=== PATIENT | female | born 1945 | race Two or more races ===

== ENCOUNTER 2020-02-24 21:33 | Inpatient (IN) | payer MEDICARE, OTHER ==
[~2020-02-24] VITALS: Ht 162.6 cm; Wt 72.6 kg
--- NOTE | 2020-02-24 21:45 | NUR ---
ED Nurse Note: Patient brought into ED by RA 813 from home c/o generalized body pain. per EMS, 911 was called due to her not having her walker with her, reports that her walker was in [facility] where she left it. the ambulance then took her to a hospital for generalized body pain. patient is hard of hearing however is alert and oriented x4
--- NOTE | 2020-02-24 21:58 | Emergency Room Report ---
History of Present Illness General Chief Complaint: Pain Present Illness HPI 74-year-old female here with chest pain and lower extremity swelling. Patient was recently discharged from [facility]. Patient is yelling angrily regarding her care at this other facility saying "I was not ready to be discharged. They sent me home with a walker and I cannot use a walker. I need a wheelchair and to go to the convalescent home." Patient says that since leaving the other facility she has fallen multiple times at home. Says that she has hit her head several times from these falls. She lives alone. Denies loss of consciousness. Denies vision changes, focal numbness or weakness, palpitation, back pain, abdominal pain, nausea, vomiting, diarrhea, dysuria. Allergies: Coded Allergies: SULFA (SULFONAMIDE ANTIBIOTICS) (Verified Allergy, Unknown, 02/24/20) COVID-19 Screening Contact w/high risk pt: No Experienced COVID-19 symptoms?: No COVID-19 Testing performed HOME SERVICE DEMONSTRATOR: No Review of Systems All Other Systems: negative except mentioned in HPI Physical Exam Vital Signs Date Time Temp Pulse Resp B/P (MAP) Pulse Ox O2 Delivery O2 Flow Rate FiO2 02/24/20 21:47 98.8 88 16 99 Room Air Medical Decision Making ER Course 74-year-old female presenting with multiple falls, chest pain, generalized weakness. Work-up currently pending. Signed out to oncoming physician Dr. Wild. Last Vital Signs Date Time Temp Pulse Resp B/P (MAP) Pulse Ox O2 Delivery O2 Flow Rate FiO2 02/24/20 21:47 98.8 88 16 99 Room Air Referrals: NOT CHOSEN IPA/,REFERRING (PCP) Silvestre Hyman M.D. Feb 24, 2020 21:58
[2020-02-24 22:00] VITALS: BP 159/75
--- NOTE | 2020-02-24 22:00 | NUR ---
ED Nurse Note: iv access established. blood and urine collected; sent down to lab.
[2020-02-24] MEDS ORDERED: HYDROmorphone 1mg/ml Carpuject IVP ONE (22:15)
--- NOTE | 2020-02-24 22:29 | Emergency Room Report ---
History of Present Illness General Chief Complaint: Pain Source: Patient Present Illness HPI This patient was signed out to me. She presents with chief complaint of generalized body pain. She has a history of coronary disease with a pacemaker. She also has severe arthritis and very hard of hearing. She presents with chief complaint of generalized body pain. She says she fell 2 to 3 days ago. She was at [facility] and was discharged home. She was given a walker but she said it is no good. She has a wheelchair but it is all broken down. She complained of generalized body pain. She complained of headache, chest pain, leg pain from her fall. No new trauma however. Denies any focal deficit. Pain is 10 out of 10. She is demanding pain medication before anything can be done. She has been to multiple hospitals for the same thing. Allergies: Coded Allergies: SULFA (SULFONAMIDE ANTIBIOTICS) (Verified Allergy, Unknown, 02/24/20) COVID-19 Screening Contact w/high risk pt: No Experienced COVID-19 symptoms?: No COVID-19 Testing performed GROUP COUNSELOR: No Patient History Past Medical History: see triage record, old chart reviewed, HTN, CAD, renal disease Past Surgical History: pacemaker Pertinent Family History: none Social History: Denies: smoking Now: No Immunizations: other Reviewed Nursing Documentation: PMH: Agreed; PSxH: Agreed Review of Systems Eye: Denies: eye pain, blurred vision ENT: Denies: ear pain, nose congestion, throat swelling Respiratory: Denies: cough, shortness of breath Cardiovascular: Denies: chest pain, palpitations Gastrointestinal: Denies: abdominal pain, diarrhea, nausea, vomiting Musculoskeletal: Reports: joint pain, muscle pain, muscle stiffness; Denies: b ack pain Skin: Denies: rash Neurological: Denies: headache, numbness Endocrine: Denies: increased thirst, increased urine Hematologic/Lymphatic: Denies: easy bruising All Other Systems: negative except mentioned in HPI Physical Exam Vital Signs Date Time Temp Pulse Resp B/P (MAP) Pulse Ox O2 Delivery O2 Flow Rate FiO2 02/24/20 21:47 98.8 88 16 99 Room Air Vitals unremarkable Sp02 EP Interpretation: reviewed, normal General Appearance: well appearing, no apparent distress, alert Head: normocephalic, atraumatic Eyes: left eye other - Left periorbital ecchymosis; bilateral eye PERRL, bilateral eye EOMI ENT: hearing grossly normal, normal pharynx Neck: full range of motion, supple, no meningismus Respiratory: chest non-tender, lungs clear, normal breath sounds Cardiovascular #1: regular rate, rhythm, no murmur Gastrointestinal: normal bowel sounds, non tender, no mass, no organomegaly, no bruit, non-distended Musculoskeletal: back normal, normal range of motion, other - 1+ pitting edema Psychiatric: mood/affect normal Medical Decision Making Diagnostic Impression: Primary Impression: Pain syndrome, chronic Additional Impressions: Cocaine abuse ESRF (end stage renal failure) Anemia Qualified Codes: D64.9 - Anemia, unspecified Acute exacerbation of CHF (congestive heart failure) Qualified Codes: I50.9 - Heart failure, unspecified Noncompliance Elevated troponin I level UTI (urinary tract infection) Qualified Codes: N30.00 - Acute cystitis without hematuria Hypertension Qualified Codes: I10 - Essential (primary) hypertension Head injury, acute Qualified Codes: S09.90XA - Unspecified injury of head, initial encounter ER Course This patient presents with exacerbation of chronic pain. This is a chronic problem. I suspect she has opioid dependency. She admits to cocaine abuse. She is also noncompliant with the medication. Her troponin is intermediate. This may be secondary to demand ischemia or from her renal failure. She said that she does have a history of kidney disease and her doctor is working on it. She was told that she may need to be on dialysis. She does not know what medication she is supposed to be on. She said that she can ambulate and needs a wheelchair. Her current wheelchair at home is not functional. Will admit patient for further work-up. I contacted Dr. Munroe for admission. EKG Diagnostic Results Rate: normal Rhythm: NSR ST Segments: other - LBBB Rhythm Strip Diag. Results EP Interpretation: yes Rate: 74 Rhythm: NSR, no PVC's Chest X-Ray Diagnostic Results Chest X-Ray Diagnostic Results : Chest X-Ray Ordered: Yes # of Views/Limited/Complete: 1 View Indication: Shortness of Breath EP Interpretation: Yes Interpretation: no consolidation, no effusion, other - Cardiomegaly with vascular congestion Impression: Other - CM with chf Electronically Signed by: Nba Wild MD Last Vital Signs Date Time Temp Pulse Resp B/P (MAP) Pulse Ox O2 Delivery O2 Flow Rate FiO2 02/24/20 21:47 98.8 88 16 99 Room Air Status: improved Disposition: ADMITTED INPATIENT Condition: Serious Referrals: NOT CHOSEN IPA/,REFERRING (PCP) Nba Wild MD Feb 24, 2020 22:29
[2020-02-24 22:30] LABS: MEAN CORPUSCULAR VOLUME 88 FL (80-99); PLATELET COUNT 161 K/UL (150-450); RED BLOOD COUNT 2.72 M/UL (4.20-5.40); RED CELL DISTRIBUTION WIDTH 17.2 % (11.6-14.8); WHITE BLOOD COUNT 6.8 K/UL (4.8-10.8)
[2020-02-24 22:36] LABS: BASOPHILS % (AUTO) 1.5 % (0.0-2.0); EOSINOPHILS % (AUTO) 2.1 % (0.0-3.0); LYMPHOCYTES % (AUTO) 14.7 % (20.0-45.0); MONOCYTES % (AUTO) 9.4 % (1.0-10.0); NEUTROPHILS % (AUTO) 72.2 % (45.0-75.0)
--- NOTE | 2020-02-24 22:45 | NUR ---
ED Nurse Note: discussed plan of care with patient; aware of pending admission. patient down to imaging with radiology.
[2020-02-24 22:47] LABS: CALCIUM 7.4 MG/DL (8.5-10.1); POTASSIUM 4.4 MMOL/L (3.5-5.1)
[2020-02-24 22:52] LABS: ALBUMIN 2.4 G/DL (3.4-5.0); ALBUMIN/GLOBULIN RATIO 0.6 (1.0-2.7); BILIRUBIN,TOTAL 0.3 MG/DL (0.2-1.0)
[2020-02-24 23:01] LABS: APPEARANCE,URINE CLEAR; BILIRUBIN, URINE NEGATIVE (NEGATIVE); COLOR,URINE YELLOW; GLUCOSE, URINE (UA) NEGATIVE (NEGATIVE); KETONES,URINE NEGATIVE (NEGATIVE); LEUKOCYTE ESTERASE ,URINE 1+ (NEGATIVE); NITRITE,URINE NEGATIVE (NEGATIVE); PH,URINE 5 (4.5-8.0); PROTEIN,URINE 4+ (NEGATIVE); UROBILINOGEN,URINE NORMAL MG/DL (0.0-1.0)
--- NOTE | 2020-02-24 23:12 | Diagnostic Imaging Report ---
EXAM: CT Head Without Intravenous Contrast CLINICAL HISTORY: FALL TECHNIQUE: Axial computed tomography images of the head/brain without intravenous contrast. CTDI is 53 mGy and DLP is 959 mGy-cm. One or more of the following dose reduction techniques were used: automated exposure control, adjustment of the mA and/or kV according to patient size, use of iterative reconstruction technique. COMPARISON: Headache FINDINGS: Brain: There is generalized cerebral volume loss. There is evidence of chronic microvascular ischemic disease. There is no evidence of hemorrhage or acute territorial infarct. Ventricles: Unremarkable. No ventriculomegaly. Bones/joints: Unremarkable. No acute fracture. Soft tissues: Unremarkable. Sinuses: Unremarkable as visualized. No acute sinusitis. Mastoid air cells: Unremarkable as visualized. No mastoid effusion. IMPRESSION: No acute intracranial process. There is generalized volume loss with evidence of chronic microvascular ischemic disease.
[2020-02-24] MEDS ORDERED: cefTRIAXone 1 GM in NS 55 ML IVPB ONE (23:15)
[2020-02-24] MEDS ORDERED: Aspirin Baby 81mg ORAL ONE (23:15)
[2020-02-25] VITALS (12 sets, daily range): BP systolic 125–181; BP diastolic 71–100
--- NOTE | 2020-02-25 | NUR ---
ED Nurse Note: Pt resting in bed, iv antibiotics infusing per order, VSS, will continue to monitor
[2020-02-25] MEDS ORDERED: HYDROcodone/Acetamin 5/325 tab ORAL PRN (01:30)
--- NOTE | 2020-02-25 02:00 | NUR ---
TRANSFER TO FLOOR: Patient transferred to as ordered, per Dr Munroe. Report given to MARY Chavez. Belongings and medications given to . Family and or S/O informed of transfer.
--- NOTE | 2020-02-25 02:15 | NUR ---
NURSE NOTES: Received patient from E.R via [place]. Patient is awake, alert and oriented x 3. Belongings lists checked and verified. Oriented to room and telemetry unit. Place bus driver/monitor shows sinus rhythm. On cardiac diet, instructed and amenable. On oxygen via nasal cannula @ 2Lpm, sating 100% with no shortness of breath reported at this time. IV site is on right AC g-20 saline locked that is patent and intact. Safety measures are in place, bed in lowest and locked position, side rails up x 2, call light button and bedside table within reach, instructed to call for any assistance needed. Will continue plan of care.
--- NOTE | 2020-02-25 03:00 | NUR ---
NURSE NOTES: Received an orders from Dr. Munroe, will carry out.
--- NOTE | 2020-02-25 04:58 | History & Physical ---
History of Present Illness General Date patient seen: Feb 25, 2020 Reason for Hospitalization: Pain Present Illness HPI 74 yo F with PMH of CHF CKD4, polysubtance abuse, cocaine abuser, untractable pain, who presented to ED for worsening heart failure, fluid overloaded, and more untracetable pain. Of noted pt has been bouncing from one facility to another claiming that all treatments was wrong and she stilll experince pain/body achiness and weakness. Pt was told that she might need HD soon by her resource analyst Dr Munroe. Allergies: Coded Allergies: SULFA (SULFONAMIDE ANTIBIOTICS) (Verified Allergy, Unknown, 02/24/20) COVID-19 Screening Contact w/high risk pt: No Recent Travel to affected area: No Experienced COVID-19 symptoms?: No Coronavirus symptoms experienc: Muscle or Body Aches Patient History Healthcare decision maker Resuscitation status FC Advanced Directive on File Review of Systems Review of Symptoms General ROS: wt gain, more weakness Psychological ROS: no depression or mood changes, no memory loss Ophthalmic ROS: no visual changes or eye irritation ENT ROS: no nasal congestion, hearing loss, dizziness Allergy and Immunology ROS: no allergic symptoms or urticaria Hematological and Lymphatic ROS: no swollen glands, unusual bleeding or bruising Endocrine ROS: no polyuria, polydipsia, weight changes, temperature intolerance Respiratory ROS: no cough, shortness of breath, or wheezing Cardiovascular ROS: no chest pain or dyspnea on exertion Gastrointestinal ROS: denies abdominal pain, bright red blood in stool. Musculoskeletal ROS: no myalgias or arthralgias Neurological ROS: no TIA or stroke symptoms Dermatological ROS: no new or changing skin lesions, rashes or pruritis Physical Exam Physical Exam General appearance: alert, cooperative, no distress, appears stated age Head: Normocephalic, without obvious abnormality, atraumatic Eyes: conjunctivae/corneas clear. PERRL, EOM's intact. Fundi benign Throat: Lips, mucosa, and tongue normal. Teeth and gums normal Neck: supple, symmetrical, trachea midline, no adenopathy, thyroid: not enlarged, symmetric, no tenderness/mass/nodules, no carotid bruit and no JVD Lungs: clear to auscultation bilaterally, more dull Heart: regular rate and rhythm, S1, S2 normal, no murmur, click, rub or gallop Abdomen: soft, non-tender. Bowel sounds normal. No masses, no organomegaly Extremities: extremities normal, atraumatic, edema Pulses: 2+ and symmetric Skin: Skin color, texture, turgor normal. No rashes or lesions Neurologic: Grossly normal Last 24 Hour Vital Signs Date Time Temp Pulse Resp B/P (MAP) Pulse Ox O2 Delivery O2 Flow Rate FiO2 02/25/20 04:00 98.0 77 23 129/71 (90) 96 02/25/20 04:00 70 02/25/20 02:42 Nasal Cannula 2.0 02/25/20 02:30 97.6 84 24 125/78 (94) 100 02/25/20 02:27 80 02/25/20 02:00 98.7 87 16 159/75 99 Nasal Cannula 2.0 02/25/20 00:00 98.7 95 16 135/78 99 Nasal Cannula 2.0 02/24/20 22:52 98.7 02/24/20 22:00 98.8 87 16 159/75 99 Nasal Cannula 2.0 02/24/20 21:47 98.8 88 16 159/67 (97) 99 Room Air Laboratory Tests Test 02/24/20 22:10 02/24/20 22:45 White Blood Count 6.8 K/UL (4.8-10.8) Red Blood Count 2.72 M/UL (4.20-5.40) L Hemoglobin 8.0 G/DL (12.0-16.0) L Hematocrit 24.0 % (37.0-47.0) L Mean Corpuscular Volume 88 FL (80-99) Mean Corpuscular Hemoglobin 28.6 PG (27.0-31.0) Mean Corpuscular Hemoglobin Concent 32.6 G/DL (32.0-36.0) Red Cell Distribution Width 17.2 % (11.6-14.8) H Platelet Count 161 K/UL (150-450) Mean Platelet Volume 8.3 FL (6.5-10.1) Neutrophils (%) (Auto) 72.2 % (45.0-75.0) Lymphocytes (%) (Auto) 14.7 % (20.0-45.0) L Monocytes (%) (Auto) 9.4 % (1.0-10.0) Eosinophils (%) (Auto) 2.1 % (0.0-3.0) Basophils (%) (Auto) 1.5 % (0.0-2.0) Sodium Level 144 MMOL/L (136-145) Potassium Level 4.4 MMOL/L (3.5-5.1) Chloride Level 108 MMOL/L (98-107) H Carbon Dioxide Level 26 MMOL/L (21-32) Anion Gap 10 mmol/L (5-15) Blood Urea Nitrogen 110 mg/dL (7-18) H Creatinine 5.0 MG/DL (0.55-1.30) H Estimat Glomerular Filtration Rate 8.5 mL/min (>60) Glucose Level 114 MG/DL (74-106) H Calcium Level 7.4 MG/DL (8.5-10.1) L Total Bilirubin 0.3 MG/DL (0.2-1.0) Aspartate Amino Transf (AST/SGOT) 48 U/L (15-37) H Alanine Aminotransferase (ALT/SGPT) 35 U/L (12-78) Alkaline Phosphatase 180 U/L (46-116) H Troponin I 0.199 ng/mL (0.000-0.056) Pro-B-Type Natriuretic Peptide Pending Total Protein 6.3 G/DL (6.4-8.2) L Albumin 2.4 G/DL (3.4-5.0) L Globulin 3.9 g/dL Albumin/Globulin Ratio 0.6 (1.0-2.7) L Urine Color Yellow Urine Appearance Clear Urine pH 5 (4.5-8.0) Urine Specific [place] 1.020 (1.005-1.035) Urine Protein 4+ (NEGATIVE) H Urine Glucose (UA) Negative (NEGATIVE) Urine Ketones Negative (NEGATIVE) Urine Blood 2+ (NEGATIVE) H Urine Nitrite Negative (NEGATIVE) Urine Bilirubin Negative (NEGATIVE) Urine Urobilinogen Normal MG/DL (0.0-1.0) Urine Leukocyte Esterase 1+ (NEGATIVE) H Urine RBC 5-10 /HPF (0 - 2) H Urine WBC 10-15 /HPF (0 - 2) H Urine Squamous Epithelial Cells Many /LPF (NONE/OCC) H Urine Bacteria Moderate /HPF (NONE) H Urine Opiates Screen Negative (NEGATIVE) Urine Barbiturates Screen Negative (NEGATIVE) Phencyclidine (PCP) Screen Negative (NEGATIVE) Urine Amphetamines Screen Negative (NEGATIVE) Urine Benzodiazepines Screen Negative (NEGATIVE) Urine Cocaine Screen Positive (NEGATIVE) H Urine Marijuana (THC) Screen Negative (NEGATIVE) Height (Feet): 5 Height (Inches): 4.00 Weight (Pounds): 160 Medications Current Medications Medications (Trade) Dose Ordered Sig/Sugey Route PRN Reason Start Time Stop Time Status Last Admin Dose Admin Acetaminophen (Tylenol) 650 mg Q6H PRN ORAL Mild Pain (Pain Scale 1-3) 02/25/20 03:30 03/26/20 03:29 Acetaminophen/ Hydrocodone Bitart ([place] 10/325) 1 tab Q6H PRN ORAL Severe Pain (Pain Scale 7-10) 02/25/20 03:30 03/03/20 03:29 Diphenhydramine HCl (Benadryl) 50 mg Q6H PRN ORAL Itching 02/25/20 03:30 03/26/20 03:29 02/25/20 03:57 Furosemide (Lasix) 60 mg BID IV 02/25/20 09:00 03/26/20 08:59 Ondansetron HCl (Zofran) 4 mg Q6H PRN IVP Nausea & Vomiting 02/25/20 03:30 03/26/20 03:29 Assessment/Plan Status: progressing, not improved, unchanged Diagnosis [place]: A/P 74 yo F with PMHX CHF. CKD4, opioid abuser, chronic untraceable pain syndrome, admitted for CHF exacerbation and fluid overload # CHF exacerbation/ fluid overload # CKD4, almost to ESRD - pt will need diurectic 60ig lasix bid - lfuid restriction - plan for HD with Dr. Munroe, need coordiante care - heart healthy diet - asa 81 - 2D echo - will start bb and acei when pt is more compliance - NC # LE edema - US LE to r/o dvt # untraceble pain # Opioid abuse - avoid unnecessary narcotic - consider pain management FC DVT prophylasix GI prophylasix: not indicated MIPS Hospital declaration INPATIENT level of care is warranted for this patient because patient is a 89 year old with CHF exacerbation who presents with suspicion of sob. I have a high level of concern because pt will soon need HD Patient is at high risk for decompensation. Plan of care/treatment include as above Patient care is expected to be greater than 2 midnights. Disposition: Once the patient is stable to leave the hospital, I anticipate the patient will likely be discharged to the following environment: Estimated discharge date: 2-5 days I spent 40 minutes on this patient's case, and 40 minutes was dedicated to counseling and/or care coordination. MIPS (Merit-based Incentive Payment System) Applicable CPT: 74193, 52898 CHECK ALL THAT ARE MET: Measure #5 (CHF): All ages. Prescribe BLACK/ARB upon discharge for patients with left ventricular systolic dysfunction. If not, the reason is clearly documented in the medical chart. Measure #8 (CHF): All ages. Prescribe a beta marlys upon discharge for patients with left ventricular systolic dysfunction. If not, the reason is clearly documented in the medical chart. Measure #47 Advance care plan or surrogate decision maker documented in the medical record. Measure #130 The provider has documented, updated, or reviewed the patients current medication list and has documented it in the patients note. Measure #374 (All): Send report to referring provider. Measure #407(Sepsis due to MSSA bacteremia): Age 18+ Patient treated with a beta-lactam antibiotic (Nafcillin, Oxacillin or Cefazolin) as definitive therapy. MEDICAL COMPLEXITY High complexity medical decision making (need 2/3 categories) Problem - need 4 points Acute/new problem with new plan for workup (4 points, 1 max) Acute/new problem without additional workup (3 points, 1 max) Unstable chronic problem actively being managed (2 point each, 2 max) Stable chronic problem actively being managed (1 point each, 2 max) Self-limited/transient process (constipation, muscle ache, etc) (1 point each, 2 max) Data - need 4 points Reviewed labs/imaging studies (1 points, 2 max) Independent review of imaging (EKG, xrays, etc) (2 points, 2 max) Discussed case with consult/other MD/RN (2 points, 2 max) High Risk - qualify if have one of the following: Severe exacerbation of acute problem, acute mental status change, IV narcotics, monitoring drug levels (vancomycin, INR, tacrolimus etc) Vane Wild DMiriamOMiriam Feb 25, 2020 04:58
[2020-02-25] MEDS: Heparin 5000 units/ml inj SUBQ SCH ×3 (06:15→22:01)
[2020-02-25] MEDS: HYDROcodone/Acetamin 10/325 tab ORAL PRN (06:15)
--- NOTE | 2020-02-25 07:18 | NUR ---
NURSE HAND-OFF REPORT: Important Events on Shift: Patient has been complaining of pain on lower extremities and always ask for her pain medication. Patient Status: Patient is asleep in stable condition. Plan of care endorsed. Diet: Renal diet Pending Orders: 2decho and patient has CBC, BMP, Mg and phos daily Pending Results/Labs:AM lab result Pending MD notification:none Latest Vital Signs: Temperature 98.0 , Pulse 77 , B/P 129 /71 , Respiratory Rate 23 , O2 SAT 96 , Nasal Cannula, O2 Flow Rate 2.0 . Vital Sign Comment: stable EKG Rhythm: Sinus Rhythm Rhythm change?: Y MD Notified?: N - MD Response: Latest Mcconnell Fall Score: 55 Fall Risk: High Risk Safety Measures: Call light Within Reach, Bed Alarm Zone 1, Side Rails Side Rails x3, Bed position Low and Locked. Fall Precautions: Yellow Socks Yellow Gown Door Sign Patient Fall Education Report given to MARY Desouza.
--- NOTE | 2020-02-25 07:22 | NUR ---
NURSE NOTES: Pt received from Maria G Sanford RN. Pt in bed sleeping, bed low and locked, call light within reach. No distress noted.
--- NOTE | 2020-02-25 08:30 | Consultation ---
History of Present Illness General Chief Complaint: Pain Reason for Consultation: CKD 5 Present Illness HPI 4 yo F with PMH of CHF CKD4, polysubtance abuse, cocaine abuser, untractable pain, who presented to ED for worsening heart failure, fluid overloaded, and more untracetable pain. Of noted pt has been bouncing from one facility to another claiming that all treatments was wrong and she stilll experince pain/body achiness and weakness. Allergies: Coded Allergies: SULFA (SULFONAMIDE ANTIBIOTICS) (Verified Allergy, Unknown, 02/24/20) Patient History Healthcare decision maker Resuscitation status Advanced Directive on File Review of Systems ROS Narrative Unable to obtain due to AMS Physical Exam General Appearance: confused Lines, tubes and drains: peripheral HEENT: normocephalic, atraumatic Neck: non-tender, normal alignment, supple Respiratory/Chest: chest wall non-tender, lungs clear Cardiovascular/Chest: normal peripheral pulses, normal rate Abdomen: normal bowel sounds, non tender Extremities: no edema, no cyanosis Last 24 Hour Vital Signs Date Time Temp Pulse Resp B/P (MAP) Pulse Ox O2 Delivery O2 Flow Rate FiO2 02/25/20 04:00 98.0 77 23 129/71 (90) 96 02/25/20 04:00 70 02/25/20 02:42 Nasal Cannula 2.0 02/25/20 02:30 97.6 84 24 125/78 (94) 100 02/25/20 02:27 80 02/25/20 02:00 98.7 87 16 159/75 99 Nasal Cannula 2.0 02/25/20 00:00 98.7 95 16 135/78 99 Nasal Cannula 2.0 02/24/20 22:52 98.7 02/24/20 22:00 98.8 87 16 159/75 99 Nasal Cannula 2.0 02/24/20 21:47 98.8 88 16 159/67 (97) 99 Room Air Laboratory Tests Test 02/24/20 22:10 02/24/20 22:45 White Blood Count 6.8 K/UL (4.8-10.8) Red Blood Count 2.72 M/UL (4.20-5.40) L Hemoglobin 8.0 G/DL (12.0-16.0) L Hematocrit 24.0 % (37.0-47.0) L Mean Corpuscular Volume 88 FL (80-99) Mean Corpuscular Hemoglobin 28.6 PG (27.0-31.0) Mean Corpuscular Hemoglobin Concent 32.6 G/DL (32.0-36.0) Red Cell Distribution Width 17.2 % (11.6-14.8) H Platelet Count 161 K/UL (150-450) Mean Platelet Volume 8.3 FL (6.5-10.1) Neutrophils (%) (Auto) 72.2 % (45.0-75.0) Lymphocytes (%) (Auto) 14.7 % (20.0-45.0) L Monocytes (%) (Auto) 9.4 % (1.0-10.0) Eosinophils (%) (Auto) 2.1 % (0.0-3.0) Basophils (%) (Auto) 1.5 % (0.0-2.0) Sodium Level 144 MMOL/L (136-145) Potassium Level 4.4 MMOL/L (3.5-5.1) Chloride Level 108 MMOL/L (98-107) H Carbon Dioxide Level 26 MMOL/L (21-32) Anion Gap 10 mmol/L (5-15) Blood Urea Nitrogen 110 mg/dL (7-18) H Creatinine 5.0 MG/DL (0.55-1.30) H Estimat Glomerular Filtration Rate 8.5 mL/min (>60) Glucose Level 114 MG/DL (74-106) H Calcium Level 7.4 MG/DL (8.5-10.1) L Total Bilirubin 0.3 MG/DL (0.2-1.0) Aspartate Amino Transf (AST/SGOT) 48 U/L (15-37) H Alanine Aminotransferase (ALT/SGPT) 35 U/L (12-78) Alkaline Phosphatase 180 U/L (46-116) H Troponin I 0.199 ng/mL (0.000-0.056) Pro-B-Type Natriuretic Peptide Pending Total Protein 6.3 G/DL (6.4-8.2) L Albumin 2.4 G/DL (3.4-5.0) L Globulin 3.9 g/dL Albumin/Globulin Ratio 0.6 (1.0-2.7) L Urine Color Yellow Urine Appearance Clear Urine pH 5 (4.5-8.0) Urine Specific [place] 1.020 (1.005-1.035) Urine Protein 4+ (NEGATIVE) H Urine Glucose (UA) Negative (NEGATIVE) Urine Ketones Negative (NEGATIVE) Urine Blood 2+ (NEGATIVE) H Urine Nitrite Negative (NEGATIVE) Urine Bilirubin Negative (NEGATIVE) Urine Urobilinogen Normal MG/DL (0.0-1.0) Urine Leukocyte Esterase 1+ (NEGATIVE) H Urine RBC 5-10 /HPF (0 - 2) H Urine WBC 10-15 /HPF (0 - 2) H Urine Squamous Epithelial Cells Many /LPF (NONE/OCC) H Urine Bacteria Moderate /HPF (NONE) H Urine Opiates Screen Negative (NEGATIVE) Urine Barbiturates Screen Negative (NEGATIVE) Phencyclidine (PCP) Screen Negative (NEGATIVE) Urine Amphetamines Screen Negative (NEGATIVE) Urine Benzodiazepines Screen Negative (NEGATIVE) Urine Cocaine Screen Positive (NEGATIVE) H Urine Marijuana (THC) Screen Negative (NEGATIVE) Height (Feet): 5 Height (Inches): 4.00 Weight (Pounds): 160 Medications Current Medications Medications (Trade) Dose Ordered Sig/Sugey Route PRN Reason Start Time Stop Time Status Last Admin Dose Admin Acetaminophen (Tylenol) 650 mg Q6H PRN ORAL Mild Pain (Pain Scale 1-3) 02/25/20 03:30 03/26/20 03:29 Acetaminophen/ Hydrocodone Bitart ([place] 10/325) 1 tab Q6H PRN ORAL Severe Pain (Pain Scale 7-10) 02/25/20 03:30 03/03/20 03:29 02/25/20 06:15 Aspirin (ASA) 81 mg DAILY NG 02/25/20 09:00 04/10/20 08:59 UNV Diphenhydramine HCl (Benadryl) 50 mg Q6H PRN ORAL Itching 02/25/20 03:30 03/26/20 03:29 02/25/20 03:57 Furosemide (Lasix) 60 mg BID IV 02/25/20 09:00 03/26/20 08:59 Heparin Sodium (Porcine) (Heparin 5000 units/ml) 5,000 units EVERY 8 HOURS SUBQ 02/25/20 06:00 04/10/20 05:59 02/25/20 06:15 Ondansetron HCl (Zofran) 4 mg Q6H PRN IVP Nausea & Vomiting 02/25/20 03:30 03/26/20 03:29 Assessment/Plan Diagnosis [place]: #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 hypertensive nephropathy #uremic encephalopathy? #troponemia #CHF #h/o polysubtance abuse, cocaine abuser #HTN #anemia - plan for emergent HD today - patient confused unable to consent - proceed with permcath placement - cardiology eval - check iron panel, vit D - check ferritin - check PTH - monitor electrolytes time spent 65 min Ace Munroe M.D. Feb 25, 2020 08:29
--- NOTE | 2020-02-25 08:41 | General Progress Note ---
Subjective Allergies: Coded Allergies: SULFA (SULFONAMIDE ANTIBIOTICS) (Verified Allergy, Unknown, 02/24/20) Subjective Chart reviewed. Patient admitted for acute renal failure, encephalopathy. Poor historian. Unable to provide further subjective history due to ALOC Review of systems: Unable to be obtained due to ALOC Objective Last 24 Hour Vital Signs Date Time Temp Pulse Resp B/P (MAP) Pulse Ox O2 Delivery O2 Flow Rate FiO2 02/25/20 04:00 98.0 77 23 129/71 (90) 96 02/25/20 04:00 70 02/25/20 02:42 Nasal Cannula 2.0 02/25/20 02:30 97.6 84 24 125/78 (94) 100 02/25/20 02:27 80 02/25/20 02:00 98.7 87 16 159/75 99 Nasal Cannula 2.0 02/25/20 00:00 98.7 95 16 135/78 99 Nasal Cannula 2.0 02/24/20 22:52 98.7 02/24/20 22:00 98.8 87 16 159/75 99 Nasal Cannula 2.0 02/24/20 21:47 98.8 88 16 159/67 (97) 99 Room Air Laboratory Tests 02/24/20 22:10: White Blood Count 6.8, Red Blood Count 2.72L, Hemoglobin 8.0L, Hematocrit 24.0L, Mean Corpuscular Volume 88, Mean Corpuscular Hemoglobin 28.6, Mean Corpuscular Hemoglobin Concent 32.6, Red Cell Distribution Width 17.2H, Platelet Count 161, Mean Platelet Volume 8.3, Neutrophils (%) (Auto) 72.2, Lymphocytes (%) (Auto) 14.7L, Monocytes (%) (Auto) 9.4, Eosinophils (%) (Auto) 2.1, Basophils (%) (Auto) 1.5, Sodium Level 144, Potassium Level 4.4, Chloride Level 108H, Carbon Dioxide Level 26, Anion Gap 10, Blood Urea Nitrogen 110H, Creatinine 5.0H, Estimat Glomerular Filtration Rate 8.5, Glucose Level 114H, Calcium Level 7.4L, Total Bilirubin 0.3, Aspartate Amino Transf (AST/SGOT) 48H, Alanine Aminotransferase (ALT/SGPT) 35, Alkaline Phosphatase 180H, Troponin I 0.199H, Pro-B-Type Natriuretic Peptide [Pending], Total Protein 6.3L, Albumin 2.4L, Globulin 3.9, Albumin/Globulin Ratio 0.6L 02/24/20 22:45: Urine Color Yellow, Urine Appearance Clear, Urine pH 5, Urine Specific [place] 1.020, Urine Protein 4+H, Urine Glucose (UA) Negative, Urine Ketones Negative, Urine Blood 2+H, Urine Nitrite Negative, Urine Bilirubin Negative, Urine Urobilinogen Normal, Urine Leukocyte Esterase 1+H, Urine RBC 5-10H, Urine WBC 10-15H, Urine Squamous Epithelial Cells ManyH, Urine Bacteria ModerateH, Urine Opiates Screen Negative, Urine Barbiturates Screen Negative, Phencyclidine (PCP) Screen Negative, Urine Amphetamines Screen Negative, Urine Benzodiazepines Screen Negative, Urine Cocaine Screen PositiveH, Urine Marijuana (THC) Screen Negative Height (Feet): 5 Height (Inches): 4.00 Weight (Pounds): 160 Objective General: WDWN female in NAD, Altered. A&O x 0. Sleepy. HEENT: Normocephalic cephalic atraumatic, pupils equal round reactive to light and accommodation, nares patent and no symmetrical, no tonsillar exudates, mu cous membranes moist CV: Regular rate regular rhythm, no murmurs, rubs, or gallops Pulm: Lungs clear to auscultation bilaterally. No wheezes, rhonchi, or rales GI: Soft, nontender, nondistended, bowel sounds present Neuro: CN 2-12 intact bilaterally, no focal signs. Moving all extremities Ext: No lower extremity edema bilaterally Skin: no rashes lesions or ulcers Msk: Joints symmetrical in upper extremity and lower extremity bilaterally, no joint swelling. Lymph: No lymphadenopathy in upper extremity and lower extremity Assessment/Plan Status: progressing, not improved, unchanged Assessment/Plan: 74 yo F with PMHX CHF. CKD4, opioid abuser, chronic untraceable pain syndrome, admitted for CHF exacerbation and fluid overload # CHF exacerbation/ fluid overload # CKD4, almost to ESRD # Acute metabolic encephalopathy - pt will need diurectic 60ig lasix bid - lfuid restriction - plan for HD with Dr. Munroe, need coordiante care - IR to place HD catheter. - No family or surrogate decision makers available at this time. Patient lacks capacity. Completely altered. Social work consulted. - At this time patient unable to make their own health care decisions. Procedure or treatment is necessary to alleviate severe pain and/or, if not performed, would lead to serious disability or . - Renal/heart healthy diet - asa 81 - 2D echo - will start bb and acei when pt is more compliance - NC #Urinary tract infection - blood cultures - urine culture - Rocepantolin (02/23 - ) # LE edema - US LE to r/o dvt #Elevated troponin - Cardiology consulted: Dr. Montejo - Echo as above - trend troponins # untraceble pain # Opioid abuse - avoid unnecessary narcotic - consider pain management FC DVT prophylasix GI prophylasix: not indicated Silvestre Cruz D.O. Feb 25, 2020 08:41
--- NOTE | 2020-02-25 08:44 | NUR ---
CASE MANAGEMENT:REVIEW BIBA FROM HOME CC; INTRACTABLE GENERALIZED BODY PAIN PMH: RECENTLY DC'D FROM [facility] ER FOR SAME REASON. ESRF SI:CHRONIC PAIN SYNDROME. ELEVATED TROPONIN. CHF. UTI ANEMIA 98.7 88 16 159/67 99% ON 2L/NC H/H-8.0/24.0 BUN+110 CR+5.0 TROPONIN(+) 0.199 URINE(+) COCAINE IS: TYLENOL PO IV DILAUDID IV ZOFRAN IV LASIX CT HEAD : TO TELEMETRY UNIT DCP: FROM HOME
--- NOTE | 2020-02-25 09:38 | NUR ---
SLIP MAKER NOTE PT is sleeping, and did not awake when this SW attempted to speak w/ pt. SW will attempt later.
[2020-02-25] MEDS: Aspirin Baby 81mg ORAL SCH (09:39)
[2020-02-25 10:56] LABS: HEMATOCRIT 22.4 % (37.0-47.0); HEMOGLOBIN 7.1 G/DL (12.0-16.0); MEAN CORPUSCULAR VOLUME 91 FL (80-99); PLATELET COUNT 141 K/UL (150-450); RED BLOOD COUNT 2.45 M/UL (4.20-5.40); RED CELL DISTRIBUTION WIDTH 17.5 % (11.6-14.8); WHITE BLOOD COUNT 5.8 K/UL (4.8-10.8)
[2020-02-25 11:23] LABS: ALBUMIN 2.3 G/DL (3.4-5.0); ALBUMIN/GLOBULIN RATIO 0.7 (1.0-2.7); BILIRUBIN,TOTAL 0.3 MG/DL (0.2-1.0); CREATININE 5.1 MG/DL (0.55-1.30); POTASSIUM 4.5 MMOL/L (3.5-5.1)
--- NOTE | 2020-02-25 12:53 | NUR ---
NURSE NOTES: Dr. Munroe notified of Hgb 7.1, per MD monitor. NNO.
--- NOTE | 2020-02-25 14:05 | General Progress Note ---
Assessment/Plan Status: progressing, not improved, unchanged Subjective Allergies: Coded Allergies: SULFA (SULFONAMIDE ANTIBIOTICS) (Verified Allergy, Unknown, 02/24/20) Subjective patient unable to maker her own health care decision likely due to uremic encephalopathy I believe HD is necessary to improved her current condition there we proceed with permcath placement as renal replacement therapy is felt to prevent major disability Objective Last 24 Hour Vital Signs Date Time Temp Pulse Resp B/P (MAP) Pulse Ox O2 Delivery O2 Flow Rate FiO2 02/25/20 12:00 97.9 79 20 138/75 (96) 93 02/25/20 12:00 68 02/25/20 09:00 Room Air 02/25/20 08:00 77 02/25/20 08:00 97.9 96 20 148/100 (116) 95 02/25/20 04:00 98.0 77 23 129/71 (90) 96 02/25/20 04:00 70 02/25/20 02:42 Nasal Cannula 2.0 02/25/20 02:30 97.6 84 24 125/78 (94) 100 02/25/20 02:27 80 02/25/20 02:00 98.7 87 16 159/75 99 Nasal Cannula 2.0 02/25/20 00:00 98.7 95 16 135/78 99 Nasal Cannula 2.0 02/24/20 22:52 98.7 02/24/20 22:00 98.8 87 16 159/75 99 Nasal Cannula 2.0 02/24/20 21:47 98.8 88 16 159/67 (97) 99 Room Air Laboratory Tests 02/24/20 22:10: White Blood Count 6.8, Red Blood Count 2.72L, Hemoglobin 8.0L, Hematocrit 24.0L, Mean Corpuscular Volume 88, Mean Corpuscular Hemoglobin 28.6, Mean Corpuscular Hemoglobin Concent 32.6, Red Cell Distribution Width 17.2H, Platelet Count 161, Mean Platelet Volume 8.3, Neutrophils (%) (Auto) 72.2, Lymphocytes (%) (Auto) 14.7L, Monocytes (%) (Auto) 9.4, Eosinophils (%) (Auto) 2.1, Basophils (%) (Auto) 1.5, Sodium Level 144, Potassium Level 4.4, Chloride Level 108H, Carbon Dioxide Level 26, Anion Gap 10, Blood Urea Nitrogen 110H, Creatinine 5.0H, Estimat Glomerular Filtration Rate 8.5, Glucose Level 114H, Calcium Level 7.4L, Total Bilirubin 0.3, Aspartate Amino Transf (AST/SGOT) 48H, Alanine Ami notransferase (ALT/SGPT) 35, Alkaline Phosphatase 180H, Troponin I 0.199H, Pro-B-Type Natriuretic Peptide [Pending], Total Protein 6.3L, Albumin 2.4L, Globulin 3.9, Albumin/Globulin Ratio 0.6L 02/24/20 22:45: Urine Color Yellow, Urine Appearance Clear, Urine pH 5, Urine Specific [place] 1.020, Urine Protein 4+H, Urine Glucose (UA) Negative, Urine Ketones Negative, Urine Blood 2+H, Urine Nitrite Negative, Urine Bilirubin Negative, Urine Urobilinogen Normal, Urine Leukocyte Esterase 1+H, Urine RBC 5-10H, Urine WBC 10-15H, Urine Squamous Epithelial Cells ManyH, Urine Bacteria ModerateH, Urine Opiates Screen Negative, Urine Barbiturates Screen Negative, Phencyclidine (PCP) Screen Negative, Urine Amphetamines Screen Negative, Urine Benzodiazepines Screen Negative, Urine Cocaine Screen PositiveH, Urine Marijuana (THC) Screen Negative 02/25/20 10:45: White Blood Count 5.8, Red Blood Count 2.45L, Hemoglobin 7.1L, Hematocrit 22.4L, Mean Corpuscular Volume 91, Mean Corpuscular Hemoglobin 28.8, Mean Corpuscular Hemoglobin Concent 31.6L, Red Cell Distribution Width 17.5H, Platelet Count 141L , Mean Platelet Volume 7.8, Neutrophils (%) (Auto) , Lymphocytes (%) (Auto) , Monocytes (%) (Auto) , Eosinophils (%) (Auto) , Basophils (%) (Auto) , Sodium Level 144, Potassium Level 4.5, Chloride Level 109H, Carbon Dioxide Level 24, Anion Gap 11, Blood Urea Nitrogen 113H, Creatinine 5.1H, Estimat Glomerular Filtration Rate 8.3, Glucose Level 94, Calcium Level 7.0L, Total Bilirubin 0.3, Aspartate Amino Transf (AST/SGOT) 52H, Alanine Aminotransferase (ALT/SGPT) 38, Alkaline Phosphatase 165H, Total Protein 5.7L, Albumin 2.3L, Globulin 3.4, Albumin/Globulin Ratio 0.7L, Differential Total Cells Counted 100, Neutrophils % (Manual) 58, Lymphocytes % (Manual) 27, Monocytes % (Manual) 11H, Eosinophils % (Manual) 4H, Basophils % (Manual) 0, Band Neutrophils 0, Platelet Estimate DecreasedL, Platelet Morphology Normal, Hypochromasia 1+, Anisocytosis 1+, Gamma Glutamyl Transpeptidase 211H 02/25/20 13:40: Troponin I [Pending] Height (Feet): 5 Height (Inches): 4.00 Weight (Pounds): 160 Ace Munroe M.D. Feb 25, 2020 14:05
--- NOTE | 2020-02-25 14:22 | NUR ---
CARDIOLOGY: PT REFUSED 2 TIMES RN IS AWARE.
[2020-02-25] MEDS ORDERED: LORazepam Inj 2mg/ml 1ml IV SCH ×2 (15:00→16:00)
[2020-02-25] MEDS ORDERED: Lidocaine 2% 20mg/ml/Epi 0.005mg/ml 20ml vial INJ SCH (15:03)
[2020-02-25] MEDS ORDERED: Heparin1,000 units/500ml Premix(Conc:2 units/ml) INJ PRN (15:03)
--- NOTE | 2020-02-25 15:08 | Consultation ---
History of Present Illness General Date patient seen: Feb 25, 2020 Reason for Hospitalization: Pain Present Illness HPI This is a pleasant 74-year-old female who presents [facility] with complaints of chest pain and lower extremity swelling. Patient was recently discharged from [facility]. Patient is yelling angrily regarding her care at this other facility saying "I was not ready to be discharged. They sent me home with a walker and I cannot use a walker. I need a wheelchair and to go to the convalescent home." Patient says that since leaving the other facility she has fallen multiple times at home. Says that she has hit her head several times from these falls. She lives alone. Denies loss of consciousness. Denies vision changes, focal numbness or weakness, palpitation, back pain, abdominal pain, nausea, vomiting, diarrhea, dysuria. On admission identified to have abnormal LFTs and lower extremity edema and some normal discomfort surgery called to eval and assist with care. Patient seen, patient by, chart reviewed Allergies: Coded Allergies: SULFA (SULFONAMIDE ANTIBIOTICS) (Verified Allergy, Unknown, 02/24/20) COVID-19 Screening Contact w/high risk pt: No Recent Travel to affected area: No Experienced COVID-19 symptoms?: No Coronavirus symptoms experienc: Muscle or Body Aches Patient History History Provided By: Patient, Medical Record, PMD Healthcare decision maker Resuscitation status Advanced Directive on File Past Medical/Surgical History Past Medical/Surgical History: (1) Anemia (2) UTI (urinary tract infection) (3) Hypertension (4) ESRF (end stage renal failure) (5) Noncompliance (6) Head injury, acute (7) Cocaine abuse (8) Acute exacerbation of CHF (congestive heart failure) (9) Pain syndrome, chronic (10) Elevated troponin I level Review of Systems Review of Symptoms General ROS: no weight loss or fever Psychological ROS: no depression or mood changes, no memory loss Ophthalmic ROS: no visual changes or eye irritation ENT ROS: no nasal congestion, hearing loss, dizziness Allergy and Immunology ROS: no allergic symptoms or urticaria Hematological and Lymphatic ROS: no swollen glands, unusual bleeding or bruising Endocrine ROS: no polyuria, polydipsia, weight changes, temperature intolerance Respiratory ROS: no cough, shortness of breath, or wheezing Cardiovascular ROS: no chest pain or dyspnea on exertion Gastrointestinal ROS: denies abdominal pain, bright red blood in stool. Musculoskeletal ROS: no myalgias or arthralgias Neurological ROS: no TIA or stroke symptoms Dermatological ROS: no new or changing skin lesions, rashes or pruritis Physical Exam Physical Exam General appearance: alert, cooperative, no distress, appears stated age Head: Normocephalic, without obvious abnormality, atraumatic Eyes: conjunctivae/corneas clear. PERRL, EOM's intact. Fundi benign Throat: Lips, mucosa, and tongue normal. Teeth and gums normal Neck: supple, symmetrical, trachea midline, no adenopathy, thyroid: not enlarged, symmetric, no tenderness/mass/nodules, no carotid bruit and no JVD Lungs: clear to auscultation bilaterally Heart: regular rate and rhythm, S1, S2 normal, no murmur, click, rub or gallop Abdomen: soft, non-tender. Bowel sounds normal. No masses, no organomegaly Extremities: extremities normal, atraumatic, no cyanosis or edema Pulses: 2+ and symmetric Skin: Skin color, texture, turgor normal. No rashes or lesions Neurologic: Grossly normal Last 24 Hour Vital Signs Date Time Temp Pulse Resp B/P (MAP) Pulse Ox O2 Delivery O2 Flow Rate FiO2 02/25/20 12:00 97.9 79 20 138/75 (96) 93 02/25/20 12:00 68 02/25/20 09:00 Room Air 02/25/20 08:00 77 02/25/20 08:00 97.9 96 20 148/100 (116) 95 02/25/20 04:00 98.0 77 23 129/71 (90) 96 02/25/20 04:00 70 02/25/20 02:42 Nasal Cannula 2.0 02/25/20 02:30 97.6 84 24 125/78 (94) 100 02/25/20 02:27 80 02/25/20 02:00 98.7 87 16 159/75 99 Nasal Cannula 2.0 02/25/20 00:00 98.7 95 16 135/78 99 Nasal Cannula 2.0 02/24/20 22:52 98.7 02/24/20 22:00 98.8 87 16 159/75 99 Nasal Cannula 2.0 02/24/20 21:47 98.8 88 16 159/67 (97) 99 Room Air Laboratory Tests Test 02/24/20 22:10 02/24/20 22:45 02/25/20 10:45 02/25/20 13:40 White Blood Count 6.8 K/UL (4.8-10.8) 5.8 K/UL (4.8-10.8) Red Blood Count 2.72 M/UL (4.20-5.40) L 2.45 M/UL (4.20-5.40) L Hemoglobin 8.0 G/DL (12.0-16.0) L 7.1 G/DL (12.0-16.0) L Hematocrit 24.0 % (37.0-47.0) L 22.4 % (37.0-47.0) L Mean Corpuscular Volume 88 FL (80-99) 91 FL (80-99) Mean Corpuscular Hemoglobin 28.6 PG (27.0-31.0) 28.8 PG (27.0-31.0) Mean Corpuscular Hemoglobin Concent 32.6 G/DL (32.0-36.0) 31.6 G/DL (32.0-36.0) L Red Cell Distribution Width 17.2 % (11.6-14.8) H 17.5 % (11.6-14.8) H Platelet Count 161 K/UL (150-450) 141 K/UL (150-450) L Mean Platelet Volume 8.3 FL (6.5-10.1) 7.8 FL (6.5-10.1) Neutrophils (%) (Auto) 72.2 % (45.0-75.0) % (45.0-75.0) Lymphocytes (%) (Auto) 14.7 % (20.0-45.0) L % (20.0-45.0) Monocytes (%) (Auto) 9.4 % (1.0-10.0) % (1.0-10.0) Eosinophils (%) (Auto) 2.1 % (0.0-3.0) % (0.0-3.0) Basophils (%) (Auto) 1.5 % (0.0-2.0) % (0.0-2.0) Sodium Level 144 MMOL/L (136-145) 144 MMOL/L (136-145) Potassium Level 4.4 MMOL/L (3.5-5.1) 4.5 MMOL/L (3.5-5.1) Chloride Level 108 MMOL/L (98-107) H 109 MMOL/L (98-107) H Carbon Dioxide Level 26 MMOL/L (21-32) 24 MMOL/L (21-32) Anion Gap 10 mmol/L (5-15) 11 mmol/L (5-15) Blood Urea Nitrogen 110 mg/dL (7-18) H 113 mg/dL (7-18) H Creatinine 5.0 MG/DL (0.55-1.30) H 5.1 MG/DL (0.55-1.30) H Estimat Glomerular Filtration Rate 8.5 mL/min (>60) 8.3 mL/min (>60) Glucose Level 114 MG/DL (74-106) H 94 MG/DL (74-106) Calcium Level 7.4 MG/DL (8.5-10.1) L 7.0 MG/DL (8.5-10.1) L Total Bilirubin 0.3 MG/DL (0.2-1.0) 0.3 MG/DL (0.2-1.0) Aspartate Amino Transf (AST/SGOT) 48 U/L (15-37) H 52 U/L (15-37) H Alanine Aminotransferase (ALT/SGPT) 35 U/L (12-78) 38 U/L (12-78) Alkaline Phosphatase 180 U/L (46-116) H 165 U/L (46-116) H Troponin I 0.199 ng/mL (0.000-0.056) 0.214 ng/mL (0.000-0.056) Pro-B-Type Natriuretic Peptide Pending Total Protein 6.3 G/DL (6.4-8.2) L 5.7 G/DL (6.4-8.2) L Albumin 2.4 G/DL (3.4-5.0) L 2.3 G/DL (3.4-5.0) L Globulin 3.9 g/dL 3.4 g/dL Albumin/Globulin Ratio 0.6 (1.0-2.7) L 0.7 (1.0-2.7) L Urine Color Yellow Urine Appearance Clear Urine pH 5 (4.5-8.0) Urine Specific [place] 1.020 (1.005-1.035) Urine Protein 4+ (NEGATIVE) H Urine Glucose (UA) Negative (NEGATIVE) Urine Ketones Negative (NEGATIVE) Urine Blood 2+ (NEGATIVE) H Urine Nitrite Negative (NEGATIVE) Urine Bilirubin Negative (NEGATIVE) Urine Urobilinogen Normal MG/DL (0.0-1.0) Urine Leukocyte Esterase 1+ (NEGATIVE) H Urine RBC 5-10 /HPF (0 - 2) H Urine WBC 10-15 /HPF (0 - 2) H Urine Squamous Epithelial Cells Many /LPF (NONE/OCC) H Urine Bacteria Moderate /HPF (NONE) H Urine Opiates Screen Negative (NEGATIVE) Urine Barbiturates Screen Negative (NEGATIVE) Phencyclidine (PCP) Screen Negative (NEGATIVE) Urine Amphetamines Screen Negative (NEGATIVE) Urine Benzodiazepines Screen Negative (NEGATIVE) Urine Cocaine Screen Positive (NEGATIVE) H Urine Marijuana (THC) Screen Negative (NEGATIVE) Differential Total Cells Counted 100 Neutrophils % (Manual) 58 % (45-75) Lymphocytes % (Manual) 27 % (20-45) Monocytes % (Manual) 11 % (1-10) H Eosinophils % (Manual) 4 % (0-3) H Basophils % (Manual) 0 % (0-2) Band Neutrophils 0 % (0-8) Platelet Estimate Decreased L Platelet Morphology Normal Hypochromasia 1+ Anisocytosis 1+ Gamma Glutamyl Transpeptidase 211 U/L (5-85) H Height (Feet): 5 Height (Inches): 4.00 Weight (Pounds): 160 Medications Current Medications Medications (Trade) Dose Ordered Sig/Sugey Route PRN Reason Start Time Stop Time Status Last Admin Dose Admin Acetaminophen (Tylenol) 650 mg Q6H PRN ORAL Mild Pain (Pain Scale 1-3) 02/25/20 03:30 03/26/20 03:29 Acetaminophen/ Hydrocodone Bitart ([place] 10/325) 1 tab Q6H PRN ORAL Severe Pain (Pain Scale 7-10) 02/25/20 03:30 03/03/20 03:29 02/25/20 06:15 Aspirin (ASA) 81 mg DAILY ORAL 02/25/20 09:00 04/10/20 08:59 02/25/20 09:39 Cefazolin Sodium 50 ml @ 100 mls/hr Q8HR IV 02/25/20 22:00 03/03/20 21:59 UNV Ceftriaxone Sodium 1 gm/ Dextrose 55 ml @ 110 mls/hr Q24H IVPB 02/25/20 21:00 03/03/20 20:59 Diphenhydramine HCl (Benadryl) 50 mg Q6H PRN ORAL Itching 02/25/20 03:30 03/26/20 03:29 02/25/20 03:57 Furosemide (Lasix) 60 mg BID IV 02/25/20 09:00 03/26/20 08:59 02/25/20 08:34 Heparin Sodium (Porcine) (Heparin 5000 units/ml) 5,000 units EVERY 8 HOURS SUBQ 02/25/20 06:00 04/10/20 05:59 02/25/20 14:23 Heparin Sodium/ Sodium Chloride (Heparin 1000 units/500ml Premix) 1,000 unit ONCE PRN INJ RADIOLOGY 02/25/20 15:03 02/25/20 23:59 Lidocaine/ Epinephrine (Lidocaine 2%/ Epi 20ml) 40 ml ONCE INJ 02/25/20 15:03 02/25/20 23:59 Lorazepam (Ativan 2mg/ml 1ml) 0.5 mg ONCE IV 02/25/20 15:00 02/25/20 16:00 Ondansetron HCl (Zofran) 4 mg Q6H PRN IVP Nausea & Vomiting 02/25/20 03:30 03/26/20 03:29 Assessment/Plan Problem List: (1) Abnormal LFTs Assessment & Plan: Patient identified to have elevated LFTs on admission. Complaints abdominal discomfort. No imaging currently performed. Abdominal ultrasound ordered. Trend labs IV fluids will monitor recommendations with evaluation of medications and serial abdominal exams. ICD Codes: R94.5 - Abnormal results of liver function studies SNOMED: 843747275 (2) Abdominal discomfort Assessment & Plan: No significant bowel distention. Discomfort on palpation asking for pain medications. No nausea vomiting fever chills. Okay for diet as tolerated we will follow with serial exams Thank allowing participation's care ICD Codes: R10.9 - Unspecified abdominal pain SNOMED: 91683944 (3) Anemia ICD Codes: D64.9 - Anemia, unspecified SNOMED: 126303306, 5085871 Qualifiers: Qualified Codes: D64.9 - Anemia, unspecified (4) UTI (urinary tract infection) ICD Codes: N39.0 - Urinary tract infection, site not specified SNOMED: 55396995, 2697382 Qualifiers: Qualified Codes: N30.00 - Acute cystitis without hematuria (5) Hypertension ICD Codes: I10 - Essential (primary) hypertension SNOMED: 46447795, 21183032239586 Qualifiers: Qualified Codes: I10 - Essential (primary) hypertension (6) ESRF (end stage renal failure) ICD Codes: N18.6 - End stage renal disease SNOMED: 13652675, 6405881 (7) Noncompliance ICD Codes: Z91.19 - Patient's noncompliance with other medical treatment and regimen SNOMED: 6322001, 9275264 (8) Head injury, acute ICD Codes: S09.90XA - Unspecified injury of head, initial encounter SNOMED: 05475991, 3836841 Qualifiers: Qualified Codes: S09.90XA - Unspecified injury of head, initial encounter (9) Cocaine abuse ICD Codes: F14.10 - Cocaine abuse, uncomplicated SNOMED: 92173733, 0717634 (10) Acute exacerbation of CHF (congestive heart failure) ICD Codes: I50.9 - Heart failure, unspecified SNOMED: 438149736, [id number] Qualifiers: Qualified Codes: I50.9 - Heart failure, unspecified (11) Pain syndrome, chronic ICD Codes: G89.4 - Chronic pain syndrome SNOMED: 490391333, 85343443070210 (12) Elevated troponin I level ICD Codes: R77.8 - Other specified abnormalities of plasma proteins SNOMED: 024336450, 4219801 Blu Lema Feb 25, 2020 15:08
--- NOTE | 2020-02-25 15:26 | NUR ---
P.T Note: P.T evaluation completed and tx initiated. Please refer to P.T evaluation for full report.
--- NOTE | 2020-02-25 15:39 | NUR ---
CHEF DE CUISINE NOTE SW attempted to obtain information from pt. Pt has her cellphone w/ her. This SW asked for family contact information. PT reports she does have children. However, pt did not provide any information. PT did not answer questions asked by SW. Instead, pt changed the topic and only verbalizes her needs. Pt reports she recently got a walker. However, pt reports she cannot use a walker thus she needs a wheelchair. UDS positivie for cocaine. SW will attempt to meet w/ pt on the next day.
--- NOTE | 2020-02-25 16:11 | Brief Operative Note ---
Immediate Post Operative Note Operative Note Pre-op Diagnosis: renal failure Procedure: permacath Post-op Diagnosis: same as pre-op Surgeon: bonnie de leon Anesthesia: local Specimen: none Complications: none Fluids: none Implant(s) used?: No Rah De Leon MD Feb 25, 2020 16:11
--- NOTE | 2020-02-25 16:46 | Diagnostic Imaging Report ---
Indication: Chest pain Technique: One view of the chest Comparison: none Findings: The heart is enlarged. There is a left chest bifocal pacemaker. There is equivocal mild pulmonary venous congestion. No focal airspace consolidation. No effusions. Impression: Cardiomegaly Equivocal mild pulmonary venous congestion. Correlate with clinical findings
--- NOTE | 2020-02-25 16:52 | Diagnostic Imaging Report ---
Indications: Needs long-term dialysis access Technique: Patient already on antibiotics. Total sterile technique, including sterile probe cover and sterile gel, sterile gloves, hand hygiene, hat, mask,, sterile gown, large sterile drape, and preparation with 2% chlorhexidine utilized. Local anesthesia with 1% lidocaine. Ultrasound demonstrated patent compressible right internal jugular vein. Under real-time ultrasound guidance and with real-time visualization of the needle entering the vein lumen, puncture right internal jugular vein using 21-gauge micropuncture needle, passage 0.018 guidewire, exchange for 4 Urdu micropuncture introducer. The guidewire was used to measure the appropriate catheter length, and was removed. The sheath was left in place. The subcutaneous tract was then anesthetized with 1% lidocaine. A chest dermatotomy was made . The tunneling device was used to pull a 14.5 Urdu 23 cm BioFlo catheter through the subcutaneous tunnel to the neck dermatotomy. A guidewire was passed through the neck introducer into the inferior vena cava, and serial dilators were passed over it, followed by the introduction of a 14.5 Urdu AirGuard peel-away sheath. The catheter was then introduced into the sheath, the peel-away sheath was removed. Digital radiograph documents satisfactory catheter tip position in the high right atrium, no kinking at the insertion site. Both catheter ports aspirated and flushed. Catheter was fixed to the skin. Patient tolerated procedure well without immediate complication. Total fluoroscopy time 58 seconds. Total dose area product 0.39155 mGym2 Total number of images-1 Comparison: None. Findings: Completion radiograph documents satisfactory position and course of the catheter, catheter tip at the Cavoatrial junction. Impression: Successful placement of right transjugular tunneled dialysis catheter, as described above
--- NOTE | 2020-02-25 18:49 | NUR ---
NURSE HAND-OFF REPORT: Important Events on Shift:[Pt got tunneled catheter today, hemodialysis likley tomorrow .please note consent for hemodialysis still needs a second physician signature, please endorse to morning RN to get it. MD aware of low Hgb. Please note CBC/BMP/Mag/Phos to be done daily Diet: [Renal] Pending Orders: [] Pending Results/Labs:[] Pending MD notification:[] Latest Vital Signs: Temperature 98.2 , Pulse 87 , B/P 181 /99 , Respiratory Rate 16 , O2 SAT 100 , Room Air, O2 Flow Rate 4.0 . Vital Sign Comment: [] EKG Rhythm: SR BBB 1st degree block Rhythm change?: Y Notified?: Y -Dr. Ludwig BUENROSTRO Response: Latest Mcconnell Fall Score: 55 Fall Risk: High Risk Safety Measures: Call light Within Reach, Bed Alarm Zone 1, Side Rails Side Rails x3, Bed position Low and Locked. Fall Precautions: Yellow Socks Yellow Gown Door Sign Patient Fall Education Report given to [Pending RN assignment]. Addendum: 02/25/20 at 1936 by Lyly Lafleur RN Report given to Siri HERNANDEZ. [facility] nephro called.
[2020-02-25] MEDS ORDERED: Mannitol 20% IV 500 ML IV ONE (19:00)
--- NOTE | 2020-02-25 19:00 | NUR ---
NURSE NOTES: Received report from MARY Desouza. AOX 1-2 but variable; noted asleep in bed; Per Lyly, pt scheduled for HD in AM; pt unable to sign and no responsible part on facesheet; Dr. Munroe able to sign; MARY Desouza able to contact Dr. Cruz, and per him, he will write a note to address emergent need for dialysis tx; [facility] contacted by MARY Desouza regarding scheduled dialysis in AM; in no acute distress on 2l via NC; call light within reach; side rails x 3; bed locked and in low position; will continue to monitor.
--- NOTE | 2020-02-25 20:30 | NUR ---
NURSE NOTES: Contacted DR. Montejo and left message regarding troponin level 0.175 relayed by Lab Marcie Beltran; pt asymptomatic; awaiting response.
[2020-02-25] MEDS ORDERED: ceFAZolin 2gm/50ml Premix 50 ML IV SCH (22:00)
[2020-02-25] MEDS: cefTRIAXone 1 GM in D5W 55 ML IVPB SCH (22:02)
--- NOTE | 2020-02-25 23:03 | Neurology Progress Note ---
Interim History Interim History Interim History 74 yo F with PMH of CHF CKD4, polysubtance abuse, cocaine abuser, opioid dependance, who presented to ED for worsening heart failure, fluid overloaded, and more untracetable pain. Of noted pt has been bouncing from one facility to another claiming that all treatments was wrong and she stilll experience pain/body achiness and weakness. Pt was told that she might need pt confused, tremors noted pending HD Objective Physical Exam Last Vital Signs Date Time Temp Pulse Resp B/P (MAP) Pulse Ox O2 Delivery O2 Flow Rate FiO2 02/25/20 22:03 97 160/85 02/25/20 16:07 98.2 16 100 02/25/20 15:44 4.0 02/25/20 09:00 Room Air Laboratory Tests Test 02/25/20 10:45 02/25/20 13:40 02/25/20 19:15 White Blood Count 5.8 K/UL (4.8-10.8) Red Blood Count 2.45 M/UL (4.20-5.40) L Hemoglobin 7.1 G/DL (12.0-16.0) L Hematocrit 22.4 % (37.0-47.0) L Mean Corpuscular Volume 91 FL (80-99) Mean Corpuscular Hemoglobin 28.8 PG (27.0-31.0) Mean Corpuscular Hemoglobin Concent 31.6 G/DL (32.0-36.0) L Red Cell Distribution Width 17.5 % (11.6-14.8) H Platelet Count 141 K/UL (150-450) L Mean Platelet Volume 7.8 FL (6.5-10.1) Neutrophils (%) (Auto) % (45.0-75.0) Lymphocytes (%) (Auto) % (20.0-45.0) Monocytes (%) (Auto) % (1.0-10.0) Eosinophils (%) (Auto) % (0.0-3.0) Basophils (%) (Auto) % (0.0-2.0) Differential Total Cells Counted 100 Neutrophils % (Manual) 58 % (45-75) Lymphocytes % (Manual) 27 % (20-45) Monocytes % (Manual) 11 % (1-10) H Eosinophils % (Manual) 4 % (0-3) H Basophils % (Manual) 0 % (0-2) Band Neutrophils 0 % (0-8) Platelet Estimate Decreased L Platelet Morphology Normal Hypochromasia 1+ Anisocytosis 1+ Sodium Level 144 MMOL/L (136-145) Potassium Level 4.5 MMOL/L (3.5-5.1) Chloride Level 109 MMOL/L (98-107) H Carbon Dioxide Level 24 MMOL/L (21-32) Anion Gap 11 mmol/L (5-15) Blood Urea Nitrogen 113 mg/dL (7-18) H Creatinine 5.1 MG/DL (0.55-1.30) H Estimat Glomerular Filtration Rate 8.3 mL/min (>60) Glucose Level 94 MG/DL (74-106) Calcium Level 7.0 MG/DL (8.5-10.1) L Total Bilirubin 0.3 MG/DL (0.2-1.0) Gamma Glutamyl Transpeptidase 211 U/L (5-85) H Aspartate Amino Transf (AST/SGOT) 52 U/L (15-37) H Alanine Aminotransferase (ALT/SGPT) 38 U/L (12-78) Alkaline Phosphatase 165 U/L (46-116) H Total Protein 5.7 G/DL (6.4-8.2) L Albumin 2.3 G/DL (3.4-5.0) L Globulin 3.4 g/dL Albumin/Globulin Ratio 0.7 (1.0-2.7) L Troponin I 0.214 ng/mL (0.000-0.056) 0.175 ng/mL (0.000-0.056) Head: normocophalic Neck: no rigidity EENT: benign Neurologic Exam Mental Status: awake, alert Cranial Nerve II: visual juarez Cranial Nerves III, IV, : PERRLA, EOMI Cranial Nerve V: normal facial sensations Objective ao x 2 flapping noted tangential non focal Impression/Recommendations Problems: (1) Anemia (2) UTI (urinary tract infection) (3) Hypertension (4) ESRF (end stage renal failure) (5) Noncompliance (6) Head injury, acute (7) Cocaine abuse (8) Acute exacerbation of CHF (congestive heart failure) (9) Pain syndrome, chronic (10) Elevated troponin I level (11) Abdominal discomfort (12) Abnormal LFTs Status: progressing, not improved, unchanged Diagnostic Impression acute encephalopathy, likely uremic tele HD per nephro PT OT as able no opioids Hay Johnson MD Feb 25, 2020 23:03
[2020-02-26] VITALS (7 sets, daily range): BP systolic 164–181; BP diastolic 75–95
--- NOTE | 2020-02-26 00:55 | NUR ---
NURSE NOTES: Left message to Dr. Munroe regarding order for anti-anxiety medication d/t pt yelling and screaming constantly despite trying to verbally calm her down; awaiting response.
[2020-02-26] MEDS: Nitroglycerin 2% oint pkt TOPIC SCH ×4 (02:47→17:48)
--- NOTE | 2020-02-26 04:45 | Consultation ---
DATE OF CONSULTATION: 02/25/2020 CARDIOLOGY CONSULTATION CONSULTING PHYSICIAN: Sourav Montejo M.D. REQUESTING PHYSICIAN: Ace Munroe M.D. REASON FOR CONSULTATION: Elevated troponin level. HISTORY OF PRESENT ILLNESS: This 74-year-old female has a history of polysubstance abuse, chronic kidney disease, and congestive heart failure. She apparently was recently hospitalized at an outside facility. She was discharged home and claims she was unable to function, adequately falling frequently, and complaining of subsequent pain. She was seen in the emergency room last evening and noted to have signs of congestive heart failure and elevated troponin level. I have been asked to assist with cardiovascular care. PAST MEDICAL HISTORY: Hypertension, chronic kidney disease, cocaine abuse, permanent pacemaker. ALLERGIES: Sulfa. MEDICATIONS: Unclear. FAMILY HISTORY: Not known. SOCIAL HISTORY: Notable for cocaine abuse. REVIEW OF SYSTEMS: No loss of vision or hearing. Denies fever, cough, congestion, or with known exposure to COVID-19, although she was recently hospitalized at another facility. She has had chest pain since her fall. She is unaware of prior heart attack. She does not know the history of irregular heartbeats. She has been told of kidney disease. She denies any seizure or stroke. There is no known history of diabetes or thyroid impairment. PHYSICAL EXAMINATION: VITAL SIGNS: Blood pressure 176/100, pulse 83, respirations 15, afebrile. HEENT: Conjunctivae pink. Arcus senilis. Oropharynx clear. NECK: Supple. Jugular venous pressure elevated. LUNGS: With few rales. CARDIAC: Regular rhythm and rate. Normal S1, S2 with a fourth heart sound and a 1/6 systolic murmur at apex. ABDOMEN: Soft, nontender. EXTREMITIES: No edema. There is a dialysis catheter in the right subclavian. LABORATORY AND DIAGNOSTIC DATA: Labs notable for natriuretic peptide over 70,000. Troponin 0.199, repeated 0.214, repeated again 0.715. BUN 113, creatinine 5.1, potassium 4.5. Albumin 2.3. Urine toxicology screen is positive for cocaine. EKG, sinus rhythm with right bundle-branch block. Chest x-ray revealed left-sided pacemaker, cardiomegaly, pulmonary venous congestion of mild severity. IMPRESSIONS: 1. Acute myocardial ischemia. 2. Acute on chronic diastolic congestive heart failure. 3. Permanent pacemaker. 4. Acute on chronic renal failure, likely stage 5 at this time. 5. Cocaine intoxication and abuse. continuing this. 6. Toxic encephalopathy. 7. Metabolic encephalopathy. 8. Hypertensive urgency. PLAN: Continuous cardiac monitoring. I agree with emergent hemodialysis and ultrafiltration. Calcium blockers and nitrates for blood pressure control and antianginal benefits. Anti-platelet therapy. Sourav Montejo M.D. DR: SAMEER JOB#: [id number] CC:
[2020-02-26] MEDS: Heparin 5000 units/ml inj SUBQ SCH ×3 (05:39→21:57)
--- NOTE | 2020-02-26 07:10 | NUR ---
NURSE HAND-OFF REPORT: Important Events on Shift: HD in 02/26/20 via R chest tunneled catheter; pt screaming and yelling; Dr. Munroe contacted regarding order for anti-anxiety medications; awaiting response; endorsed to AM nurse to f/u on signature by Dr. Wilkins from [facility] on HD consent; Per Dr. Diaz, he will put a note or come in to sign; Dr. Munroe already signed; for abdominal ultrasound 02/26/20 AM Patient Status: AOX1, non-compliant; yells/screams Diet: NPO Pending Orders: N Pending Results/Labs: morning labs Pending MD notification: Dr. Munroe Latest Vital Signs: Temperature 97.7 , Pulse 89 , B/P 183 /95 , Respiratory Rate 16 , O2 SAT 98 , Nasal Cannula, O2 Flow Rate 4.0 . Vital Sign Comment: stable EKG Rhythm: SR w/ BBB Rhythm change?: N MD Notified?: N MD Response: Latest Mcconnell Fall Score: 55 Fall Risk: High Risk Safety Measures: Call light Within Reach, Bed Alarm Zone 2, Side Rails Side Rails x3, Bed position Low and Locked. Fall Precautions: Yellow Socks Yellow Gown Door Sign Patient Fall Education Report given to MARY Jaimes.
--- NOTE | 2020-02-26 07:30 | NUR ---
NURSE NOTES: Received pt from MARY Mazariegos, pt is awake and very confused and agitated, , pt has NC 4lit, pt has intact iv access HAY 20G SL. pt is on continues heart monitoring. no complain of pain at this moment. when RN received pt HD finished with 3 lit out put, and pt pulled out HD cath and was bleeding, pressure dressing applied and Dr Munroe is aware and ordered bi soft wrist restraints and Ativan iv, noted and carried out. all needs attended, bed is locked and is in the lowest position, call light within easy reach. will continue to monitor.
--- NOTE | 2020-02-26 08:39 | Neurology Progress Note ---
Interim History Interim History Interim History agitated, pulling lines confused Objective Physical Exam Last Vital Signs Date Time Temp Pulse Resp B/P (MAP) Pulse Ox O2 Delivery O2 Flow Rate FiO2 02/26/20 08:00 97.3 92 16 181/82 (115) 95 02/25/20 21:00 Nasal Cannula 4.0 Laboratory Tests Test 02/25/20 10:45 02/25/20 13:40 02/25/20 19:15 02/26/20 06:05 White Blood Count 5.8 K/UL (4.8-10.8) Pending Red Blood Count 2.45 M/UL (4.20-5.40) L Pending Hemoglobin 7.1 G/DL (12.0-16.0) L Pending Hematocrit 22.4 % (37.0-47.0) L Pending Mean Corpuscular Volume 91 FL (80-99) Pending Mean Corpuscular Hemoglobin 28.8 PG (27.0-31.0) Pending Mean Corpuscular Hemoglobin Concent 31.6 G/DL (32.0-36.0) L Pending Red Cell Distribution Width 17.5 % (11.6-14.8) H Pending Platelet Count 141 K/UL (150-450) L Pending Mean Platelet Volume 7.8 FL (6.5-10.1) Pending Neutrophils (%) (Auto) % (45.0-75.0) Pending Lymphocytes (%) (Auto) % (20.0-45.0) Pending Monocytes (%) (Auto) % (1.0-10.0) Pending Eosinophils (%) (Auto) % (0.0-3.0) Pending Basophils (%) (Auto) % (0.0-2.0) Pending Differential Total Cells Counted 100 Neutrophils % (Manual) 58 % (45-75) Lymphocytes % (Manual) 27 % (20-45) Monocytes % (Manual) 11 % (1-10) H Eosinophils % (Manual) 4 % (0-3) H Basophils % (Manual) 0 % (0-2) Band Neutrophils 0 % (0-8) Platelet Estimate Decreased L Platelet Morphology Normal Hypochromasia 1+ Anisocytosis 1+ Sodium Level 144 MMOL/L (136-145) Pending Potassium Level 4.5 MMOL/L (3.5-5.1) Pending Chloride Level 109 MMOL/L (98-107) H Pending Carbon Dioxide Level 24 MMOL/L (21-32) Pending Anion Gap 11 mmol/L (5-15) Blood Urea Nitrogen 113 mg/dL (7-18) H Pending Creatinine 5.1 MG/DL (0.55-1.30) H Pending Estimat Glomerular Filtration Rate 8.3 mL/min (>60) Pending Glucose Level 94 MG/DL (74-106) Pending Calcium Level 7.0 MG/DL (8.5-10.1) L Pending Total Bilirubin 0.3 MG/DL (0.2-1.0) Pending Gamma Glutamyl Transpeptidase 211 U/L (5-85) H Aspartate Amino Transf (AST/SGOT) 52 U/L (15-37) H Pending Alanine Aminotransferase (ALT/SGPT) 38 U/L (12-78) Pending Alkaline Phosphatase 165 U/L (46-116) H Pending Total Protein 5.7 G/DL (6.4-8.2) L Pending Albumin 2.3 G/DL (3.4-5.0) L Pending Globulin 3.4 g/dL Albumin/Globulin Ratio 0.7 (1.0-2.7) L Troponin I 0.214 ng/mL (0.000-0.056) 0.175 ng/mL (0.000-0.056) Pending Calcium (Send out) Pending Phosphorus Level Pending Magnesium Level Pending Iron Level Pending Unsaturated Iron Binding Pending Ferritin Pending Direct Bilirubin Pending Vitamin D 25-Hydroxy Pending 25-Hydroxy Vitamin D2 Pending 25-Hydroxy Vitamin D3 Pending Parathyroid Hormone (Intact) Pending Head: normocophalic Neck: no rigidity EENT: benign Neurologic Exam Mental Status: awake, alert Cranial Nerve II: visual juarez Cranial Nerves III, IV, : PERRLA, EOMI Cranial Nerve V: normal facial sensations Objective ao x 2 flapping noted tangential non focal Impression/Recommendations Problems: (1) Anemia (2) UTI (urinary tract infection) (3) Hypertension (4) ESRF (end stage renal failure) (5) Noncompliance (6) Head injury, acute (7) Cocaine abuse (8) Acute exacerbation of CHF (congestive heart failure) (9) Pain syndrome, chronic (10) Elevated troponin I level (11) Abdominal discomfort (12) Abnormal LFTs Status: progressing, not improved, unchanged Diagnostic Impression acute encephalopathy, likely uremic agitation tele seroquel 25 mg bid standing HD per nephro PT OT as able no opioids Hay Johnson MD Feb 26, 2020 08:39
[2020-02-26 08:43] LABS: % IRON SATURATION 22 % (15-50); IRON 58 ug/dL (50-175); TOTAL IRON BINDING CAPACITY 261 ug/dL (250-450)
[2020-02-26 08:44] LABS: ALANINE AMINOTRANSFERASE 51 U/L (12-78); ALBUMIN 2.8 G/DL (3.4-5.0); ALKALINE PHOSPHATASE 219 U/L (46-116); ASPARTATE AMINO TRANSFERASE 60 U/L (15-37); BILIRUBIN,DIRECT 0.1 MG/DL (0.0-0.3); BILIRUBIN,TOTAL 0.3 MG/DL (0.2-1.0)
[2020-02-26 08:45] LABS: CALCIUM 7.4 MG/DL (8.5-10.1); CREATININE 4.5 MG/DL (0.55-1.30); PHOSPHORUS 5.7 MG/DL (2.5-4.9); POTASSIUM 3.9 MMOL/L (3.5-5.1)
[2020-02-26 08:46] LABS: HEMATOCRIT 23.8 % (37.0-47.0); HEMOGLOBIN 7.4 G/DL (12.0-16.0); MEAN CORPUSCULAR VOLUME 92 FL (80-99); PLATELET COUNT 103 K/UL (150-450); RED BLOOD COUNT 2.59 M/UL (4.20-5.40); RED CELL DISTRIBUTION WIDTH 16.4 % (11.6-14.8); WHITE BLOOD COUNT 4.7 K/UL (4.8-10.8)
[2020-02-26] MEDS: HydrALAZINE 25mg tab ORAL PRN ×2 (09:17→17:48)
[2020-02-26] MEDS: Aspirin Baby 81mg ORAL SCH (09:17)
--- NOTE | 2020-02-26 10:30 | NUR ---
NURSE NOTES: Reji from Radiology is aware about tunnel cath placement, they will do tomorrow, Dr Arriaga is aware.
--- NOTE | 2020-02-26 10:35 | NUR ---
NURSE NOTES: RN called Dr Montejo 0900 am and notified troponin trending up to 0.210, no called back, Dr Arriaga visited pt and is aware about troponin, no new order received, MD will F/U. Will continue to monitor.
--- NOTE | 2020-02-26 10:58 | Diagnostic Imaging Report ---
Indication: Abnormal liver function tests, abnormal renal function tests Technique: Victor-scale and duplex images of the upper abdomen were obtained Comparison: none Findings: Exam is limited due to patient having limited ability to cooperate. Gallbladder demonstrates focal wall thickening and edema, gallbladder wall just over 4 mm thick. There is also small amount of pericholecystic fluid No gallstones. Sonographic Lewis's sign is negative. Common bile duct measures 5 mm in diameter. No intrahepatic biliary ductal dilatation. Liver demonstrates slightly increased echogenicity, no focal abnormality. Portal vein and hepatic veins are patent. Pancreas is unremarkable. Spleen is unremarkable. Left kidney measures 7.7 cm in length. Right kidney measures 8 cm length. Both kidneys demonstrate increased echogenicity There is no hydronephrosis. No focal abnormality . Abdominal aorta is partially obscured by bowel gas, visualized portions are non-aneurysmal . Right pleural effusion incidentally noted Impression: Somewhat limited exam, as described Increased renal echogenicity bilaterally, indicating medical renal disease. Incidental finding of bilateral renal cysts Mildly increased hepatic echogenicity, likely medical renal disease Negative for gallstones. There is focal gallbladder wall thickening and some pericholecystic fluid. This is probably due to edema of systemic causes but the possibility of acalculous acute cholecystitis should also be considered Right pleural effusion Note incompletely visualized distal abdominal aorta
--- NOTE | 2020-02-26 11:00 | NUR ---
NURSE NOTES: Dr Arriaga and Ludwig visited pt and are aware about pt is still NPO ordered st eval, noted and carried out. will continue to monitor.
--- NOTE | 2020-02-26 11:18 | NUR ---
SPANISH TRANSLATOR NOTE PT presents as labile and irritable. Pt reports she is residing alone in her residence and does not have any family members/children. SW was unable to obtain more psychosocial information. Pt declined to discuss substance abuse issue.
--- NOTE | 2020-02-26 12:03 | NUR ---
NURSE NOTES: Dr Montejo called back regarding troponin 0.210, no new order received. will continue to monitor.
--- NOTE | 2020-02-26 12:55 | NUR ---
CHARGE NURSE NOTE: notified about elevated blood pressure and that pt will be transferred to non monitor unit. wants to transfer patient to med.surg.
--- NOTE | 2020-02-26 13:10 | NUR ---
NURSE NOTES: Afsoon RN brought patient by bed in stable condition. Alert and oriented x2 and confused. On O2 @ 4L via NS. Per Afsoon RN: patient pulled out dialysis catheter after dialysis. IV dressing intact and dry. On bilateral wrist soft restrain. Belonging checked with RN. Bed lowest position. Call light within reach. Will continue to monitor.
--- NOTE | 2020-02-26 13:25 | NUR ---
NURSE NOTES: pt is stable, no stress noted, no bleeding noted from HD access. iv access intact. pt transferred to 401 bed 1, report given to MARY Theodore. endorsed plan of care, endorsed monitor pt for bleeding and F/U ST Eval and tunnel cath placement. all belongings checked with RN and are with pt. Dr Munroe and Bart are aware about HB 7.4 and other lab results and V/S, no new order received. Addendum: 02/26/20 at 1331 by Fiona Hernandez RN skin is intact. Addendum: 02/26/20 at 1540 by Fiona Hernandez RN Endorsed to MARY Theodore that report to Dr Montejo regarding EF 25-30%.
--- NOTE | 2020-02-26 13:33 | Nephrology Progress Note ---
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 #troponemia #CHF #h/o polysubtance abuse, cocaine abuser #HTN #anemia - pullout permcath - patient unable to maker her own health care decision likely due to uremic encephalopathy I believe HD is necessary to improved her current condition there we proceed with permcath replacement as renal replacement therapy is felt to prevent major disability - cardiology eval - amlodipine 10mg daily - continue lasix 60 V BID for now - ceftriaxone for UTI - check iron panel, vit D - check ferritin - check PTH - monitor electrolytes time spent 65 min Subjective ROS Limited/Unobtainable: Yes Subjective Patient agited pulled out HD line after HD Objective Objective Last 24 Hour Vital Signs Date Time Temp Pulse Resp B/P (MAP) Pulse Ox O2 Delivery O2 Flow Rate FiO2 02/26/20 12:53 169/75 02/26/20 12:00 97.7 89 19 169/75 (106) 95 02/26/20 11:53 94 02/26/20 10:33 166/80 (108) 02/26/20 09:17 181/82 02/26/20 09:17 99 181/82 02/26/20 08:04 99 02/26/20 08:00 97.3 92 16 181/82 (115) 95 02/26/20 06:38 183/95 02/26/20 04:00 97.7 90 16 180/90 (120) 98 02/26/20 04:00 89 02/26/20 02:47 174/91 02/26/20 00:00 90 02/26/20 00:00 98.2 93 16 173/95 (121) 96 02/25/20 22:03 97 160/85 02/25/20 21:00 Nasal Cannula 4.0 02/25/20 20:00 90 02/25/20 20:00 98.5 97 24 160/85 (110) 92 02/25/20 16:07 98.2 87 16 181/99 (126) 100 02/25/20 16:02 98.2 83 15 176/100 (125) 100 02/25/20 16:00 81 02/25/20 16:00 97.8 87 20 158/82 (107) 98 02/25/20 15:58 98.2 86 15 164/93 (116) 99 02/25/20 15:53 98.2 99 20 163/97 (119) 99 02/25/20 15:44 88 20 4.0 02/25/20 15:35 87 18 138/68 98 02/25/20 15:05 71 20 135/70 95 Laboratory Tests 02/25/20 13:40: Troponin I 0.214H 02/25/20 19:15: Troponin I 0.175H 02/26/20 06:05: Troponin I 0.210H, White Blood Count 4.7L, Red Blood Count 2.59L, Hemoglobin 7.4L, Hematocrit 23.8L, Mean Corpuscular Volume 92, Mean Corpuscular Hemoglobin 28.7, Mean Corpuscular Hemoglobin Concent 31.2L, Red Cell Distribution Width 16.4H, Platelet Count 103L, Mean Platelet Volume 10.2H, Neutrophils (%) (Auto) , Lymphocytes (%) (Auto) , Monocytes (%) (Auto) , Eosinophils (%) (Auto) , Basophils (%) (Auto) , Differential Total Cells Counted 100, Neutrophils % (Manual) 80H, Lymphocytes % (Manual) 13L, Monocytes % (Manual) 3, Eosinophils % (Manual) 3, Basophils % (Manual) 0, Band Neutrophils 1, Platelet Estimate DecreasedL, Platelet Morphology Normal, Red Blood Cell Morphology , Hypochromasia 1+, Anisocytosis 1+, Sodium Level 143, Potassium Level 3.9, Chloride Level 106, Carbon Dioxide Level 29, Anion Gap 8, Blood Urea Nitrogen 93H, Creatinine 4.5H, Estimat Glomerular Filtration Rate 9.6, Glucose Level 72L, Calcium Level 7.4L, Calcium (Send out) [Pending], Phosphorus Level 5.7H, Magnesium Level 2.0, Iron Level 58, Total Iron Binding Capacity 261, Percent Iron Saturation 22, Unsaturated Iron Binding 203, Ferritin 174, Total Bilirubin 0.3, Direct Bilirubin 0.1, Aspartate Amino Transf (AST/SGOT) 60H, Alanine Aminotransferase (ALT/SGPT) 51, Alkaline Phosphatase 219H, Total Protein 6.6, Albumin 2.8L, Vitamin D 25-Hydroxy [Pending], 25-Hydroxy Vitamin D2 [Pending], 25-Hydroxy Vitamin D3 [Pending], Parathyroid Hormone (Intact) [Pending] Height (Feet): 5 Height (Inches): 4.00 Weight (Pounds): 160 General Appearance: agitated, combative EENT: PERRL/EOMI, normal ENT inspection Neck: non-tender, normal alignment Cardiovascular: normal peripheral pulses, normal rate, regular rhythm Respiratory/Chest: chest wall non-tender, lungs clear, normal breath sounds Abdomen: normal bowel sounds, non tender Extremities: normal range of motion Ace Munroe M.D. Feb 26, 2020 13:33
--- NOTE | 2020-02-26 14:23 | Diagnostic Imaging Report ---
Indication: Shortness of breath Technique: One view of the chest Comparison: 02/24/2020 Findings: Cardiomegaly, mild interstitial congestion, left chest pacemaker are all unchanged. Note that permacath placed on the previous day is not visible currently Impression: Unchanged, over 2 days, findings as above. Note that permacath placed the previous day is not evident
[2020-02-26] MEDS ORDERED: Varibar Thin Liquid powder 148gm MC PRN (14:45)
[2020-02-26] MEDS ORDERED: Varibar Pudding 230ml MC PRN (14:45)
[2020-02-26] MEDS ORDERED: Varibar Honey 250ml MC PRN (14:45)
[2020-02-26] MEDS ORDERED: Varibar Nectar 240ml MC PRN (14:45)
--- NOTE | 2020-02-26 15:41 | NUR ---
NURSE NOTES: Called and left massage regarding 2D echo result and waiting for call back. Also, called and left massage regarding Tunnel Catheter placement. Will follow up as needed.
--- NOTE | 2020-02-26 15:41 | Surgery Progress Note ---
Surgery Progress Note Subjective Symptoms: improved, tolerating diet, passing flatus Objective Last 24 Hour Vital Signs Date Time Temp Pulse Resp B/P (MAP) Pulse Ox O2 Delivery O2 Flow Rate FiO2 02/26/20 12:53 169/75 02/26/20 12:00 97.7 89 19 169/75 (106) 95 02/26/20 11:53 94 02/26/20 10:33 166/80 (108) 02/26/20 09:17 181/82 02/26/20 09:17 99 181/82 02/26/20 08:04 99 02/26/20 08:00 97.3 92 16 181/82 (115) 95 02/26/20 06:38 183/95 02/26/20 04:00 97.7 90 16 180/90 (120) 98 02/26/20 04:00 89 02/26/20 02:47 174/91 02/26/20 00:00 90 02/26/20 00:00 98.2 93 16 173/95 (121) 96 02/25/20 22:03 97 160/85 02/25/20 21:00 Nasal Cannula 4.0 02/25/20 20:00 90 02/25/20 20:00 98.5 97 24 160/85 (110) 92 02/25/20 16:07 98.2 87 16 181/99 (126) 100 02/25/20 16:02 98.2 83 15 176/100 (125) 100 02/25/20 16:00 81 02/25/20 16:00 97.8 87 20 158/82 (107) 98 02/25/20 15:58 98.2 86 15 164/93 (116) 99 02/25/20 15:53 98.2 99 20 163/97 (119) 99 02/25/20 15:44 88 20 4.0 Dressing: saturated Cardiovascular: RSR Respiratory: decreased breath sounds Abdomen: non-tender, present bowel sounds Extremities: no tenderness, no cyanosis Laboratory Tests Test 02/25/20 19:15 02/26/20 06:05 Troponin I 0.175 ng/mL (0.000-0.056) 0.210 ng/mL (0.000-0.056) White Blood Count 4.7 K/UL (4.8-10.8) L Red Blood Count 2.59 M/UL (4.20-5.40) L Hemoglobin 7.4 G/DL (12.0-16.0) L Hematocrit 23.8 % (37.0-47.0) L Mean Corpuscular Volume 92 FL (80-99) Mean Corpuscular Hemoglobin 28.7 PG (27.0-31.0) Mean Corpuscular Hemoglobin Concent 31.2 G/DL (32.0-36.0) L Red Cell Distribution Width 16.4 % (11.6-14.8) H Platelet Count 103 K/UL (150-450) L Mean Platelet Volume 10.2 FL (6.5-10.1) H Neutrophils (%) (Auto) % (45.0-75.0) Lymphocytes (%) (Auto) % (20.0-45.0) Monocytes (%) (Auto) % (1.0-10.0) Eosinophils (%) (Auto) % (0.0-3.0) Basophils (%) (Auto) % (0.0-2.0) Differential Total Cells Counted 100 Neutrophils % (Manual) 80 % (45-75) H Lymphocytes % (Manual) 13 % (20-45) L Monocytes % (Manual) 3 % (1-10) Eosinophils % (Manual) 3 % (0-3) Basophils % (Manual) 0 % (0-2) Band Neutrophils 1 % (0-8) Platelet Estimate Decreased L Platelet Morphology Normal Red Blood Cell Morphology Hypochromasia 1+ Anisocytosis 1+ Sodium Level 143 MMOL/L (136-145) Potassium Level 3.9 MMOL/L (3.5-5.1) Chloride Level 106 MMOL/L (98-107) Carbon Dioxide Level 29 MMOL/L (21-32) Anion Gap 8 mmol/L (5-15) Blood Urea Nitrogen 93 mg/dL (7-18) H Creatinine 4.5 MG/DL (0.55-1.30) H Estimat Glomerular Filtration Rate 9.6 mL/min (>60) Glucose Level 72 MG/DL (74-106) L Calcium Level 7.4 MG/DL (8.5-10.1) L Calcium (Send out) Pending Phosphorus Level 5.7 MG/DL (2.5-4.9) H Magnesium Level 2.0 MG/DL (1.8-2.4) Iron Level 58 ug/dL (50-175) Total Iron Binding Capacity 261 ug/dL (250-450) Percent Iron Saturation 22 % (15-50) Unsaturated Iron Binding 203 ug/dL (112-346) Ferritin 174 NG/ML (8-388) Total Bilirubin 0.3 MG/DL (0.2-1.0) Direct Bilirubin 0.1 MG/DL (0.0-0.3) Aspartate Amino Transf (AST/SGOT) 60 U/L (15-37) H Alanine Aminotransferase (ALT/SGPT) 51 U/L (12-78) Alkaline Phosphatase 219 U/L (46-116) H Total Protein 6.6 G/DL (6.4-8.2) Albumin 2.8 G/DL (3.4-5.0) L Vitamin D 25-Hydroxy Pending 25-Hydroxy Vitamin D2 Pending 25-Hydroxy Vitamin D3 Pending Parathyroid Hormone (Intact) Pending Plan Problems: (1) Abnormal LFTs Assessment & Plan: Patient identified to have elevated LFTs on admission. Complaints abdominal discomfort. No imaging currently performed. Abdominal ultrasound ordered. Trend labs IV fluids will monitor recommendations with evaluation of medications and serial abdominal exams. Exam is limited due to patient having limited ability to cooperate. Gallbladder demonstrates focal wall thickening and edema, gallbladder wall just over 4 mm thick. There is also small amount of pericholecystic fluid No gallstones. Sonographic Lewis's sign is negative. Common bile duct measures 5 mm in diameter. No intrahepatic biliary ductal dilatation. Liver demonstrates slightly increased echogenicity, no focal abnormality. Portal vein and hepatic veins are patent. Pancreas is unremarkable. Spleen is unremarkable. Left kidney measures 7.7 cm in length. Right kidney measures 8 cm length. Both kidneys demonstrate increased echogenicity There is no hydronephrosis. No focal abnormality . Abdominal aorta is partially obscured by bowel gas, visualized portions are non-aneurysmal . Right pleural effusion incidentally noted Impression: Somewhat limited exam, as described Increased renal echogenicity bilaterally, indicating medical renal disease. Incidental finding of bilateral renal cysts Mildly increased hepatic echogenicity, likely medical renal disease Negative for gallstones. There is focal gallbladder wall thickening and some pericholecystic fluid. This is probably due to edema of systemic causes but the possibility of acalculous acute cholecystitis should also be considered Right pleural effusion Note incompletely visualized distal abdominal aorta (2) Abdominal discomfort Assessment & Plan: No significant bowel distention. Discomfort on palpation asking for pain medications. No nausea vomiting fever chills. Okay for diet as tolerated we will follow with serial exams Thank allowing participation's care (3) Anemia (4) UTI (urinary tract infection) (5) Hypertension (6) ESRF (end stage renal failure) (7) Noncompliance (8) Head injury, acute (9) Cocaine abuse (10) Acute exacerbation of CHF (congestive heart failure) (11) Pain syndrome, chronic (12) Elevated troponin I level Blu Lema Feb 26, 2020 15:41
--- NOTE | 2020-02-26 18:22 | General Progress Note ---
Subjective Allergies: Coded Allergies: SULFA (SULFONAMIDE ANTIBIOTICS) (Verified Allergy, Unknown, 02/24/20) Subjective Patient removed tunneled line after HD this AM. Bleeding initially but later stopped. Mental status still poor but overall improving. Review of systems: Unable to be obtained due to ALOC Objective Last 24 Hour Vital Signs Date Time Temp Pulse Resp B/P (MAP) Pulse Ox O2 Delivery O2 Flow Rate FiO2 02/26/20 17:48 170/85 02/26/20 16:00 98.6 91 20 170/85 (113) 100 02/26/20 12:53 169/75 02/26/20 12:00 97.7 89 19 169/75 (106) 95 02/26/20 11:53 94 02/26/20 10:33 166/80 (108) 02/26/20 09:17 181/82 02/26/20 09:17 99 181/82 02/26/20 08:04 99 02/26/20 08:00 97.3 92 16 181/82 (115) 95 02/26/20 06:38 183/95 02/26/20 04:00 97.7 90 16 180/90 (120) 98 02/26/20 04:00 89 02/26/20 02:47 174/91 02/26/20 00:00 90 02/26/20 00:00 98.2 93 16 173/95 (121) 96 02/25/20 22:03 97 160/85 02/25/20 21:00 Nasal Cannula 4.0 02/25/20 20:00 90 02/25/20 20:00 98.5 97 24 160/85 (110) 92 Laboratory Tests 02/25/20 19:15: Troponin I 0.175H 02/26/20 06:05: Troponin I 0.210H, White Blood Count 4.7L, Red Blood Count 2.59L, Hemoglobin 7.4L, Hematocrit 23.8L, Mean Corpuscular Volume 92, Mean Corpuscular Hemoglobin 28.7, Mean Corpuscular Hemoglobin Concent 31.2L, Red Cell Distribution Width 16.4H, Platelet Count 103L, Mean Platelet Volume 10.2H, Neutrophils (%) (Auto) , Lymphocytes (%) (Auto) , Monocytes (%) (Auto) , Eosinophils (%) (Auto) , Basophils (%) (Auto) , Differential Total Cells Counted 100, Neutrophils % (Manual) 80H, Lymphocytes % (Manual) 13L, Monocytes % (Manual) 3, Eosinophils % (Manual) 3, Basophils % (Manual) 0, Band Neutrophils 1, Platelet Estimate DecreasedL, Platelet Morphology Normal, Red Blood Cell Morphology , Hypochromasia 1+, Anisocytosis 1+, Sodium Level 143, Potassium Level 3.9, Chloride Level 106, Carbon Dioxide Level 29, Anion Gap 8, Blood Urea Nitrogen 93H, Creatinine 4.5H, Estimat Glomerular Filtration Rate 9.6, Glucose Level 72L, Calcium Level 7.4L, Calcium (Send out) [Pending], Phosphorus Level 5.7H, Magnesium Level 2.0, Iron Level 58, Total Iron Binding Capacity 261, Percent Iron Saturation 22, Unsaturated Iron Binding 203, Ferritin 174, Total Bilirubin 0.3, Direct Bilirubin 0.1, Aspartate Amino Transf (AST/SGOT) 60H, Alanine Aminotransferase (ALT/SGPT) 51, Alkaline Phosphatase 219H, Total Protein 6.6, Albumin 2.8L, Vitamin D 25-Hydroxy [Pending], 25-Hydroxy Vitamin D2 [Pending], 25-Hydroxy Vitamin D3 [Pending], Parathyroid Hormone (Intact) [Pending], Hepatitis B Surface Antigen [Pending], Hepatitis B Surface Antibody, Quant [Pending], Hepatitis C Antibody [Pending] Height (Feet): 5 Height (Inches): 4.00 Weight (Pounds): 160 Objective General: WDWN female in NAD, Altered. A&O x 0. Sleepy but arousable HEENT: Normocephalic cephalic atraumatic, pupils equal round reactive to light and accommodation, nares patent and no symmetrical, no tonsillar exudates, mucous membranes moist CV: Regular rate regular rhythm, no murmurs, rubs, or gallops Pulm: Lungs clear to auscultation bilaterally. No wheezes, rhonchi, or rales GI: Soft, nontender, nondistended, bowel sounds present Neuro: CN 2-12 intact bilaterally, no focal signs. Moving all extremities Ext: No lower extremity edema bilaterally Skin: no rashes lesions or ulcers Msk: Joints symmetrical in upper extremity and lower extremity bilaterally, no joint swelling. Lymph: No lymphadenopathy in upper extremity and lower extremity Assessment/Plan Status: progressing, not improved, unchanged Assessment/Plan: 74 yo F with PMHX CHF. CKD4, opioid abuser, chronic untraceable pain syndrome, admitted for CHF exacerbation and fluid overload # CHF exacerbation/ fluid overload # CKD4, almost to ESRD # Acute metabolic encephalopathy - pt will need diurectic 60ig lasix bid - lfuid restriction - plan for HD with Dr. Munroe, need coordiante care - IR to place HD catheter. - No family or surrogate decision makers available at this time. Patient lacks capacity. Completely altered. Social work consulted. - At this time patient unable to make their own health care decisions. Procedure or treatment is necessary to alleviate severe pain and/or, if not performed, would lead to serious disability or . - patient unable to maker her own health care decision likely due to uremic encephalopathy I also believe HD is necessary to improved her current condition therefore we will proceed with permcath placement as renal replacement therapy is felt to prevent major disability - Renal/heart healthy diet - asa 81 - 2D echo - will start bb and acei when pt is more compliance - NC - abdominal ultrasound - Appreciate gen surgery recommendations: D/w Dr. Lema #Acute systolic heart failure exacerbation - EF 20-25%. D/w Cardiology - HD per nephrology - appreciate cardiology recommendations #Urinary tract infection - blood cultures - urine culture - Rocephin (02/23 - ) # LE edema - US LE to r/o dvt #Elevated troponin - Cardiology consulted: Dr. Montejo - Echo as above - trend troponins # untraceble pain # Opioid abuse - avoid unnecessary narcotic - consider pain management FC DVT prophylasix GI prophylasix: not indicated 38 minutes spent on this encounter, and 20 minutes spent on counseling and care coordination. Discussed with surgery, cardiology, ID, nephrology Time of note may not reflect time patient was seen. Silvestre Cruz D.O. Feb 26, 2020 18:22
--- NOTE | 2020-02-26 19:30 | NUR ---
NURSE HAND-OFF: Important Events on Shift:Transfer from Tele Patient Status: Stable Diet: NPO Pending Orders: N/A Pending Results/Labs:CBC, BMP, Mg, Phos on 02/27 Pending MD notification:N/A Latest Vital Signs: Temperature 98.6 , Pulse 91 , B/P 170 /85 , Respiratory Rate 20 , O2 SAT 100 , Nasal Cannula, O2 Flow Rate 4.0 . Vital Sign Comment: Stable Latest Mcconnell Fall Score: 70 Fall Risk: High Risk Safety Measures: Call light Within Reach, Bed Alarm Zone 2, Side Rails Side Rails x3, Bed position Low and Locked. Fall Precautions: Yellow Socks Yellow Gown Door Sign Patient Fall Education Report given to Sandy VERDUZCO. Patient in stable condition.
--- NOTE | 2020-02-26 20:16 | NUR ---
NURSE NOTES: Pt. received from MARY Dean. Pt. AAOx1 on 4L NC, breathing even and unlabored, no indications of respiratory distress, no complaints of pain, IV noted intact and patent. Restraints soft wrist, movement and sensation intact. Bed low and locked side rails x3 up, bed alarm active, and call light in reach.
--- NOTE | 2020-02-26 20:17 | NUR ---
SPEECH PATHOLOGY NOTE: BEDSIDE SWALLOW EVALUATION RECEIVED FROM DR. RAY, CHART REVIEWED, RN INTERVIEWED, EVALUATION COMPLETED. RELEVANT MEDICATIONS: ATIVAN, SEROQUEL, LASIX VITAL SIGNS: BASELINE RR: 20, 02SAT 100% ROOM AIR PATIENT CLEARED FOR ST INTERVENTION BY MARY LARA. PATIENT RECEIVED LAYING SUPINE AND REPOSITIONED FOR P.O. TRIALS. INITIALLY, SHE BECAME AGITATED BUT WAS ABLE TO BE COAXED TO PARTICIPATE IN THESE TRIALS. INITIAL IMPRESSIONS: PATIENT PRESENTS WITH MILD OROPHARYNGEAL DYSPHAGIA C/B MILDLY DELAYED ORAL PREPARATION AND ORAL TRANSIT TIME, MILD DELAY IN INITIATION OF PHARYNGEAL PHASE OF SWALLOW. DURING ONE TRIAL, SHE DEMONSTRATED BOLUS HOLDING WHICH CLEARED WITH VERBAL PROMPT. LINGUAL/LABIAL/MANDIBULAR MUSCULATURE PRESENTED DECREASED IN STRENGTH, BUT INTACT RELATIVE TO ROM AND COORDINATION. LABIAL STRENGTH NOTED WEAKENED WHEN SHE ATTEMPTED TO SWEEP TRIALS OF PUREE FROM THE BOWL OF THE SPOON. WHEN PRESENTED WITH THIN LIQUIDS VIA STRAW, SHE SIPPED NON/STOP UNTIL THE STRAW WAS REMOVED. SHE WAS CAUTIONED TO TAKE ONE SIP AND SWALLOW AND THIS WAS CHALLENGING FOR HER. SHE KEPT ASKING "DO YOU HAVE A DOUGHNUT? I WANT CAKE. DON'T YOU HAVE ANY DESSERT?. DENTITION IS ESSENTIALLY EDENTULOUS WITH THE EXCEPTION OF LOWER MEDIAL/LATERAL INCISORS. CLEAR UPPER AIRWAY SOUNDS PRE AND POST SWALLOW PER CERVICAL AUSCULTATION. LARYNGEAL EXCURSION DURING SWALLOW SLIGHTLY REDUCED. NO CHANGES NOTED IN VOCAL QUALITY OR RESPIRATION RATE DURING INTAKE OF 2 0Z PUREE, 2 OZ JELLO, 4 OZ THIN LIQUIDS. NO OVERT OR SUBTLE S/S OF ASPIRATION OBSERVED. PATIENT WAS NOT ORIENTED TO PLACE/SITUATION. IT IS QUESTIONABLE THAT SHE WOULD BE SAFE TO LIVE INDEPENDENTLY AND CARE FOR HER MEDICAL NEEDS (ESRD) APPROPRIATELY. RECOMMENDATIONS: 1. SAFE TO RESUME P.O. WITH MECHANICAL SOFT/FINELY CHOPPED AND THIN LIQUIDS 2. NO STRAWS, SUPERVISED P.O.DUE TO PATIENTS IMPULSIVITY 3. RD CONSULT RE: PATIENT FOOD PREFERENCES 4. ST TO FOLLOW FOR DYSPHAGIA TX/MANAGEMENT, COGNITIVE/LINGUISTIC SCREEN TO DETERMINE PATIENTS CAPACITY TO MAINTAIN HER HEALTH/SAFETY INDEPENDENTLY IN THE COMMUNITY THANK Y0U FOR THIS REFERRAL.
[2020-02-26] MEDS: cefTRIAXone 1 GM in D5W 55 ML IVPB SCH (21:56)
--- NOTE | 2020-02-26 22:05 | Cardiology Progress Note ---
Subjective DATE OF SERVICE: Feb 26, 2020 Pulled out dialysis access after HD today. Remains confused Troponins consistently in 0.2 range. 2D Echo: EF30%, severe pulm HTN with PAP 90mmHg, global and regional wall motion abnormalities Objective Last 24 Hour Vital Signs Date Time Temp Pulse Resp B/P (MAP) Pulse Ox O2 Delivery O2 Flow Rate FiO2 02/26/20 17:48 170/85 02/26/20 16:00 98.6 91 20 170/85 (113) 100 02/26/20 12:53 169/75 02/26/20 12:00 97.7 89 19 169/75 (106) 95 02/26/20 11:53 94 02/26/20 10:33 166/80 (108) 02/26/20 09:17 181/82 02/26/20 09:17 99 181/82 02/26/20 08:04 99 02/26/20 08:00 97.3 92 16 181/82 (115) 95 02/26/20 06:38 183/95 02/26/20 04:00 97.7 90 16 180/90 (120) 98 02/26/20 04:00 89 02/26/20 02:47 174/91 02/26/20 00:00 90 02/26/20 00:00 98.2 93 16 173/95 (121) 96 02/25/20 22:03 97 160/85 ROS: unchanged from my assessment of 02/25/20 HEENT: normal ENT inspection RHYTHM: NSR, ST LUNGS: diminished breath sounds, rales bilaterally - few, other - Prior right chest wall cath site with no active bleeding CARDIAC: normal rate, regular rhythm, normal S1 and S2, systolic murmur - 2/6 systolic murmur at LLSB, gallop/S4 ABDOMEN: normal bowel sounds, non tender, soft, no organomegaly EXTREMITIES: normal range of motion, non-tender, +1 edema Laboratory Tests Test 02/26/20 06:05 White Blood Count 4.7 K/UL (4.8-10.8) L Red Blood Count 2.59 M/UL (4.20-5.40) L Hemoglobin 7.4 G/DL (12.0-16.0) L Hematocrit 23.8 % (37.0-47.0) L Mean Corpuscular Volume 92 FL (80-99) Mean Corpuscular Hemoglobin 28.7 PG (27.0-31.0) Mean Corpuscular Hemoglobin Concent 31.2 G/DL (32.0-36.0) L Red Cell Distribution Width 16.4 % (11.6-14.8) H Platelet Count 103 K/UL (150-450) L Mean Platelet Volume 10.2 FL (6.5-10.1) H Neutrophils (%) (Auto) % (45.0-75.0) Lymphocytes (%) (Auto) % (20.0-45.0) Monocytes (%) (Auto) % (1.0-10.0) Eosinophils (%) (Auto) % (0.0-3.0) Basophils (%) (Auto) % (0.0-2.0) Differential Total Cells Counted 100 Neutrophils % (Manual) 80 % (45-75) H Lymphocytes % (Manual) 13 % (20-45) L Monocytes % (Manual) 3 % (1-10) Eosinophils % (Manual) 3 % (0-3) Basophils % (Manual) 0 % (0-2) Band Neutrophils 1 % (0-8) Platelet Estimate Decreased L Platelet Morphology Normal Red Blood Cell Morphology Hypochromasia 1+ Anisocytosis 1+ Sodium Level 143 MMOL/L (136-145) Potassium Level 3.9 MMOL/L (3.5-5.1) Chloride Level 106 MMOL/L (98-107) Carbon Dioxide Level 29 MMOL/L (21-32) Anion Gap 8 mmol/L (5-15) Blood Urea Nitrogen 93 mg/dL (7-18) H Creatinine 4.5 MG/DL (0.55-1.30) H Estimat Glomerular Filtration Rate 9.6 mL/min (>60) Glucose Level 72 MG/DL (74-106) L Calcium Level 7.4 MG/DL (8.5-10.1) L Calcium (Send out) Pending Phosphorus Level 5.7 MG/DL (2.5-4.9) H Magnesium Level 2.0 MG/DL (1.8-2.4) Iron Level 58 ug/dL (50-175) Total Iron Binding Capacity 261 ug/dL (250-450) Percent Iron Saturation 22 % (15-50) Unsaturated Iron Binding 203 ug/dL (112-346) Ferritin 174 NG/ML (8-388) Total Bilirubin 0.3 MG/DL (0.2-1.0) Direct Bilirubin 0.1 MG/DL (0.0-0.3) Aspartate Amino Transf (AST/SGOT) 60 U/L (15-37) H Alanine Aminotransferase (ALT/SGPT) 51 U/L (12-78) Alkaline Phosphatase 219 U/L (46-116) H Troponin I 0.210 ng/mL (0.000-0.056) Total Protein 6.6 G/DL (6.4-8.2) Albumin 2.8 G/DL (3.4-5.0) L Vitamin D 25-Hydroxy Pending 25-Hydroxy Vitamin D2 Pending 25-Hydroxy Vitamin D3 Pending Parathyroid Hormone (Intact) Pending Hepatitis B Surface Antigen Pending Hepatitis B Surface Antibody, Quant Pending Hepatitis C Antibody Pending Microbiology Date/Time Source Procedure Growth Status 02/25/20 10:45 Blood Blood Culture - Preliminary NO GROWTH AFTER 24 HOURS Resulted 02/25/20 10:35 Blood Blood Culture - Preliminary NO GROWTH AFTER 24 HOURS Resulted 02/25/20 06:00 Nose MRSA Culture - Final Staphylococcus Aureus - Mrsa Complete 02/24/20 22:45 Urine,Clean Catch Urine Culture - Preliminary Resulted Assessment/Plan Assessment/Plan Metabolic encephalopathy CKD5 Acute myocardial ischemia Ischemic and cocaine cardiomyopathy Severe pulmonary hypertension Acute on chronic systolic CHF Hypertensive urgency Anemia of CKD HD/UF once catheter replaced Diuresis efforts Nitrates Anti-plt therapy Maximize antiHTN and anti-failure regimen Epo/Fe++; consider PRBC transfusion Sourav Montejo MD Feb 26, 2020 22:05
[2020-02-27] VITALS (10 sets, daily range): BP systolic 138–172; BP diastolic 75–106
[2020-02-27] MEDS: Nitroglycerin 2% oint pkt TOPIC SCH ×3 (06:01→17:47)
[2020-02-27] MEDS: HydrALAZINE 25mg tab ORAL PRN (06:02)
[2020-02-27] MEDS: Heparin 5000 units/ml inj SUBQ SCH ×3 (06:03→21:43)
[2020-02-27 06:17] LABS: HEMATOCRIT 20.9 % (37.0-47.0); MEAN CORPUSCULAR VOLUME 90 FL (80-99); PLATELET COUNT 123 K/UL (150-450); RED BLOOD COUNT 2.33 M/UL (4.20-5.40); RED CELL DISTRIBUTION WIDTH 16.2 % (11.6-14.8); WHITE BLOOD COUNT 5.7 K/UL (4.8-10.8)
--- NOTE | 2020-02-27 06:40 | NUR ---
NURSE HAND-OFF: Important Events on Shift:[Pt. removed IV access, restraints still intact, voiding on bedpan, ST recommending [facility] soft/finely chopped diet] Patient Status: sleeping Diet: NPO Pending Orders: []na Pending Results/Labs:[]na Pending MD notification:[]diet and need emergency consent for dialysis catheter Latest Vital Signs: Temperature 97.5 , Pulse 85 , B/P 169 /90 , Respiratory Rate 20 , O2 SAT 92 , Nasal Cannula, O2 Flow Rate 2.0 . Vital Sign Comment: [stable] Latest Mcconnell Fall Score: 70 Fall Risk: High Risk Safety Measures: Call light Within Reach, Bed Alarm Zone 1, Side Rails Side Rails x3, Bed position Low and Locked. Fall Precautions: Yellow Socks Yellow Gown Door Sign Patient Fall Education Report given to []. Addendum: 02/27/20 at 0732 by Ez Thomas RN HAND-OFF: Report given to MARY Gastelum.
[2020-02-27 06:45] LABS: HEMOGLOBIN 6.8 G/DL (12.0-16.0)
[2020-02-27 06:49] LABS: CALCIUM 7.3 MG/DL (8.5-10.1); CREATININE 4.6 MG/DL (0.55-1.30); PHOSPHORUS 5.6 MG/DL (2.5-4.9); POTASSIUM 3.7 MMOL/L (3.5-5.1)
--- NOTE | 2020-02-27 07:00 | NUR ---
NURSE NOTES: Received report from MARY Hui. Rounding done with outgoing nurse. Pt a/o x 2, confused. No SOB noted with NC 4L/min. Lt wrist IV access is in placed. Pt has bilateral restraints. Bed in lowest position, call light within reach. Will continue to monitor.
[2020-02-27] MEDS ORDERED: Lidocaine 2% 20mg/ml/Epi 0.005mg/ml 20ml vial INJ PRN (08:15)
[2020-02-27] MEDS ORDERED: Heparin1,000 units/500ml Premix(Conc:2 units/ml) IV PRN (08:15)
[2020-02-27] MEDS ORDERED: LORazepam Inj 2mg/ml 1ml IV PRN ×3 (08:30→10:30)
[2020-02-27] MEDS: Aspirin Baby 81mg ORAL SCH (09:18)
--- NOTE | 2020-02-27 09:18 | Nephrology Progress Note ---
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 #troponemia #CHF #h/o polysubtance abuse, cocaine abuser #HTN #anemia - pullout permcath - patient unable to maker her own health care decision likely due to uremic encephalopathy I believe HD is necessary to improved her current condition there we proceed with permcath replacement as renal replacement therapy is felt to prevent major disability hemoglobin 6.8 needs tranfusion today unable to consent will proceed due to emergency nature - cardiology eval - amlodipine 10mg daily - continue lasix 60 V BID for now - ceftriaxone for UTI - check iron panel, vit D - check ferritin - check PTH - monitor electrolytes time spent 65 min Subjective ROS Limited/Unobtainable: Yes Subjective Patient agited pulled out HD line after HD hemoglobin 6.8 needs tranfusion today unable to consent will proceed due to emergency nature Objective Objective Last 24 Hour Vital Signs Date Time Temp Pulse Resp B/P (MAP) Pulse Ox O2 Delivery O2 Flow Rate FiO2 02/27/20 08:00 99.0 86 20 138/81 (100) 95 02/27/20 06:02 169/90 02/27/20 06:01 169/90 02/27/20 04:00 97.5 85 20 169/90 (116) 92 02/27/20 00:00 98.2 108 20 156/81 (106) 95 02/26/20 21:00 Nasal Cannula 2.0 02/26/20 20:00 98.2 84 20 164/81 (108) 97 02/26/20 17:48 170/85 02/26/20 16:00 98.6 91 20 170/85 (113) 100 02/26/20 12:53 169/75 02/26/20 12:00 97.7 89 19 169/75 (106) 95 02/26/20 11:53 94 02/26/20 10:33 166/80 (108) Intake and Output 02/26/20 02/27/20 19:00 07:00 Intake Total 55 ml Output Total 3800 ml 500 ml Balance -3800 ml -445 ml Intake IV Total 55 ml Output Urine Total 800 ml 500 ml Hemodialysis UF 3000 ml # Voids 2 Laboratory Tests 02/27/20 05:32: White Blood Count 5.7, Red Blood Count 2.33L, Hemoglobin 6.8*L, Hematocrit 20.9L , Mean Corpuscular Volume 90, Mean Corpuscular Hemoglobin 29.0, Mean Corpuscular Hemoglobin Concent 32.3, Red Cell Distribution Width 16.2H, Platelet Count 123L, Mean Platelet Volume 9.7, Neutrophils (%) (Auto) , Lymphocytes (%) (Auto) , Monocytes (%) (Auto) , Eosinophils (%) (Auto) , Basophils (%) (Auto) , Differential Total Cells Counted 100, Neutrophils % (Manual) 71, Lymphocytes % (Manual) 18L, Monocytes % (Manual) 11H, Eosinophils % (Manual) 0, Basophils % (Manual) 0, Band Neutrophils 0, Platelet Estimate DecreasedL, Platelet Morphology Normal, Hypochromasia 2+, Anisocytosis 1+, Target Cells Occasional, Sodium Level 145, Potassium Level 3.7, Chloride Level 108H, Carbon Dioxide Level 29, Anion Gap 8, Blood Urea Nitrogen 84H, Creatinine 4.6H, Estimat Glomerular Filtration Rate 9.3, Glucose Level 71L, Calcium Level 7.3L, Phosphorus Level 5.6H, Magnesium Level 1.6L Height (Feet): 5 Height (Inches): 4.00 Weight (Pounds): 160 Ace Munroe M.D. Feb 27, 2020 09:18
[2020-02-27] MEDS: LORazepam Inj 2mg/ml 1ml IV PRN (10:52)
--- NOTE | 2020-02-27 10:54 | NUR ---
P.T Note: P.T attempted however unable to proceed as pt is uncooperative. Will reattempt when/as pt cooperates.
--- NOTE | 2020-02-27 11:30 | NUR ---
NURSE NOTES: Mg 1.[address] Munroe is aware and no new order.
--- NOTE | 2020-02-27 12:48 | Surgery Progress Note ---
Surgery Progress Note Subjective Additional Comments anemia renal insufficiency plan HD labs reviewed abd exam stable no n/v Objective Last 24 Hour Vital Signs Date Time Temp Pulse Resp B/P (MAP) Pulse Ox O2 Delivery O2 Flow Rate FiO2 02/27/20 12:18 140/83 02/27/20 12:00 90 20 140/83 (102) 02/27/20 11:22 86 20 138/81 95 02/27/20 10:52 86 20 138/81 95 02/27/20 09:00 86 138/81 02/27/20 08:00 99.0 86 20 138/81 (100) 95 02/27/20 06:02 169/90 02/27/20 06:01 169/90 02/27/20 04:00 97.5 85 20 169/90 (116) 92 02/27/20 00:00 98.2 108 20 156/81 (106) 95 02/26/20 21:00 Nasal Cannula 2.0 02/26/20 20:00 98.2 84 20 164/81 (108) 97 02/26/20 17:48 170/85 02/26/20 16:00 98.6 91 20 170/85 (113) 100 02/26/20 12:53 169/75 I&O Intake and Output 02/26/20 02/27/20 19:00 07:00 Intake Total 55 ml Output Total 3800 ml 500 ml Balance -3800 ml -445 ml Intake IV Total 55 ml Output Urine Total 800 ml 500 ml Hemodialysis UF 3000 ml # Voids 2 Cardiovascular: RSR Respiratory: decreased breath sounds Abdomen: non-tender, present bowel sounds, decreased bowel sounds Extremities: no edema, no tenderness, no cyanosis Laboratory Tests Test 02/27/20 05:32 White Blood Count 5.7 K/UL (4.8-10.8) Red Blood Count 2.33 M/UL (4.20-5.40) L Hemoglobin 6.8 G/DL (12.0-16.0) *L Hematocrit 20.9 % (37.0-47.0) L Mean Corpuscular Volume 90 FL (80-99) Mean Corpuscular Hemoglobin 29.0 PG (27.0-31.0) Mean Corpuscular Hemoglobin Concent 32.3 G/DL (32.0-36.0) Red Cell Distribution Width 16.2 % (11.6-14.8) H Platelet Count 123 K/UL (150-450) L Mean Platelet Volume 9.7 FL (6.5-10.1) Neutrophils (%) (Auto) % (45.0-75.0) Lymphocytes (%) (Auto) % (20.0-45.0) Monocytes (%) (Auto) % (1.0-10.0) Eosinophils (%) (Auto) % (0.0-3.0) Basophils (%) (Auto) % (0.0-2.0) Differential Total Cells Counted 100 Neutrophils % (Manual) 71 % (45-75) Lymphocytes % (Manual) 18 % (20-45) L Monocytes % (Manual) 11 % (1-10) H Eosinophils % (Manual) 0 % (0-3) Basophils % (Manual) 0 % (0-2) Band Neutrophils 0 % (0-8) Platelet Estimate Decreased L Platelet Morphology Normal Hypochromasia 2+ Anisocytosis 1+ Target Cells Occasional Sodium Level 145 MMOL/L (136-145) Potassium Level 3.7 MMOL/L (3.5-5.1) Chloride Level 108 MMOL/L (98-107) H Carbon Dioxide Level 29 MMOL/L (21-32) Anion Gap 8 mmol/L (5-15) Blood Urea Nitrogen 84 mg/dL (7-18) H Creatinine 4.6 MG/DL (0.55-1.30) H Estimat Glomerular Filtration Rate 9.3 mL/min (>60) Glucose Level 71 MG/DL (74-106) L Calcium Level 7.3 MG/DL (8.5-10.1) L Phosphorus Level 5.6 MG/DL (2.5-4.9) H Magnesium Level 1.6 MG/DL (1.8-2.4) L Plan Problems: (1) Abnormal LFTs Assessment & Plan: Patient identified to have elevated LFTs on admission. Complaints abdominal discomfort. No imaging currently performed. Abdominal ultrasound ordered. Trend labs IV fluids will monitor recommendations with evaluation of medications and serial abdominal exams. Exam is limited due to patient having limited ability to cooperate. Gallbladder demonstrates focal wall thickening and edema, gallbladder wall just over 4 mm thick. There is also small amount of pericholecystic fluid No gallstones. Sonographic Lewis's sign is negative. Common bile duct measures 5 mm in diameter. No intrahepatic biliary ductal dilatation. Liver demonstrates slightly increased echogenicity, no focal abnormality. Portal vein and hepatic veins are patent. Pancreas is unremarkable. Spleen is unremarkable. Left kidney measures 7.7 cm in length. Right kidney measures 8 cm length. Both kidneys demonstrate increased echogenicity There is no hydronephrosis. No focal abnormality . Abdominal aorta is partially obscured by bowel gas, visualized portions are non-aneurysmal . Right pleural effusion incidentally noted Impression: Somewhat limited exam, as described Increased renal echogenicity bilaterally, indicating medical renal disease. Incidental finding of bilateral renal cysts Mildly increased hepatic echogenicity, likely medical renal disease Negative for gallstones. There is focal gallbladder wall thickening and some pericholecystic fluid. This is probably due to edema of systemic causes but the possibility of acalculous acute cholecystitis should also be considered Right pleural effusion Note incompletely visualized distal abdominal aorta (2) Abdominal discomfort Assessment & Plan: No significant bowel distention. Discomfort on palpation asking for pain medications. No nausea vomiting fever chills. Okay for diet as tolerated we will follow with serial exams Thank allowing participation's care (3) Anemia (4) UTI (urinary tract infection) (5) Hypertension (6) ESRF (end stage renal failure) (7) Noncompliance (8) Head injury, acute (9) Cocaine abuse (10) Acute exacerbation of CHF (congestive heart failure) (11) Pain syndrome, chronic (12) Elevated troponin I level Blu Lema Feb 27, 2020 12:48
[2020-02-27] MEDS: HydrALAZINE 25mg tab ORAL SCH ×3 (14:00→21:43)
--- NOTE | 2020-02-27 14:34 | NUR ---
DISEASE EDUCATION SPECIALIST NOTES PT HAS BEEN REFERRED TO [facility] FOR [facility]ACEMENT AND ALSO REFERRED TO [facility]. WILL FOLLOW UP WITH ACCEPTANCE. ELSIE CULP [phone] [facility] [phone] Addendum: 02/27/20 at 1436 by MIKIE BARRETO RN CM PT WILL NEED COVID TEST PRIOR TO DC. MADE AWARE.
--- NOTE | 2020-02-27 15:25 | NUR ---
NURSE NOTES: Patient is off the unit for HD cath placement.
--- NOTE | 2020-02-27 16:06 | NUR ---
CASE MANAGEMENT:REVIEW SI;ENCEPHALOPATHY. ANEMIA. ESRD. 99.0 108 20 169/90 95% 2L NC H/H 6.8/20.9 PLT 123 BUN 84 CR 4.6 MAG 1.6 IS;HYDRALAZINE PO Q8 ATIVAN IV ONCE ROCEPHIN IV QD ASA PO QD LASIX IV BID PERMA CATH PLACEMENT MED SURG STATUS DCP;FROM HOME
--- NOTE | 2020-02-27 16:23 | Pre-Procedure Note/Attestation ---
Pre-Procedure Note/Attestation Complete Prior to Procedure Planned Procedure: not applicable Procedure Narrative: permacath Indications for Procedure Pre-Operative Diagnosis: renal failure Attestation I attest that I discussed the nature of the procedure; its benefits; risks and complications; and alternatives (and the risks and benefits of such alternatives), prior to the procedure, with the patient (or the patient's legal distribution sales representative). I attest that, if there was a reasonable possibility of needing a blood t ransfusion, the patient (or the patient's legal distribution sales representative) was given the [facility] standardized written summary, pursuant to the Nakul Suzanne Blood Safety Act ([place] Health and Safety Code # 1645, as amended). I attest that I re-evaluated the patient just prior to the surgery and that there has been no change in the patient's H&P, except as documented below: emergency consent by attending Rah Rivers MD Feb 27, 2020 16:23
--- NOTE | 2020-02-27 16:24 | Brief Operative Note ---
Immediate Post Operative Note Operative Note Pre-op Diagnosis: renal failure Procedure: permacath Anesthesia: local Specimen: none Complications: none Fluids: none Implant(s) used?: No Rah Gonzalez MD Feb 27, 2020 16:24
--- NOTE | 2020-02-27 16:35 | NUR ---
NURSE NOTES: Patient came up to the unit after HD cath placement.
--- NOTE | 2020-02-27 18:08 | Diagnostic Imaging Report ---
Indications: Needs long-term dialysis access Technique: Patient already on antibiotics so none given. Total sterile technique, including sterile probe cover and sterile gel, sterile gloves, hand hygiene, hat, mask,, sterile gown, large sterile drape, and preparation with 2% chlorhexidine utilized. Local anesthesia with 1% lidocaine. Ultrasound demonstrated patent compressible right internal jugular vein. Under real-time ultrasound guidance and with real-time visualization of the needle entering the vein lumen, puncture right internal jugular vein using 21-gauge micropuncture needle, passage 0.018 guidewire, exchange for 4 [place] micropuncture introducer. The guidewire was used to measure the appropriate catheter length, and was removed. The sheath was left in place. The subcutaneous tract was then anesthetized with 1% lidocaine. A chest dermatotomy was made . The tunneling device was used to pull a 14.5 [place] 23 cm Palindrome catheter through the subcutaneous tunnel to the neck dermatotomy. A guidewire was passed through the neck introducer into the inferior vena cava, and serial dilators were passed over it, followed by the introduction of a 14.5 [place] AirGuard peel-away sheath. The catheter was then introduced into the sheath, the peel-away sheath was removed. Digital radiograph documents satisfactory catheter tip position in the high right atrium, no kinking at the insertion site. Both catheter ports aspirated and flushed. Catheter was fixed to the skin. Patient tolerated procedure well without immediate complication. Total fluoroscopy time 38.1 seconds. Total dose area product [id number] [id number] Total number of images-1 Comparison: None. Findings: Completion radiograph documents satisfactory position and course of the catheter, catheter tip at the cavoatrial junction. Impression: Successful placement of right transjugular tunneled dialysis catheter, as described above
--- NOTE | 2020-02-27 19:11 | General Progress Note ---
Subjective Allergies: Coded Allergies: SULFA (SULFONAMIDE ANTIBIOTICS) (Verified Allergy, Unknown, 02/24/20) Subjective No acute events overnight per nursing. Hgb down to 6.8. Getting PRBC 1unit. No further signs of bleeding. For IR tunneled cath again today. Mental status still poor but continues to improve. Review of systems: Unable to be obtained due to ALOC Objective Last 24 Hour Vital Signs Date Time Temp Pulse Resp B/P (MAP) Pulse Ox O2 Delivery O2 Flow Rate FiO2 02/27/20 17:47 143/77 02/27/20 17:47 143/77 02/27/20 17:45 97.7 80 18 150/75 (100) 100 02/27/20 17:00 97.7 87 18 143/77 (99) 100 02/27/20 16:30 95 18 168/95 100 02/27/20 16:29 98.1 95 18 168/95 (119) 100 02/27/20 16:24 98.1 95 18 172/96 (121) 100 02/27/20 15:35 88 20 2.0 02/27/20 15:35 98.1 88 20 161/98 (119) 100 02/27/20 15:18 90 20 140/83 95 02/27/20 12:18 140/83 02/27/20 12:00 90 20 140/83 (102) 02/27/20 11:22 86 20 138/81 95 02/27/20 10:52 86 20 138/81 95 02/27/20 09:00 Nasal Cannula 4.0 02/27/20 09:00 86 138/81 02/27/20 08:00 99.0 86 20 138/81 (100) 95 02/27/20 06:02 169/90 02/27/20 06:01 169/90 02/27/20 04:00 97.5 85 20 169/90 (116) 92 02/27/20 00:00 98.2 108 20 156/81 (106) 95 02/26/20 21:00 Nasal Cannula 2.0 02/26/20 20:00 98.2 84 20 164/81 (108) 97 Intake and Output 02/26/20 02/27/20 19:00 07:00 Intake Total 55 ml Output Total 3800 ml 500 ml Balance -3800 ml -445 ml IV Total 55 ml Output Urine Total 800 ml 500 ml Hemodialysis UF 3000 ml # Voids 2 Laboratory Tests 02/27/20 05:32: White Blood Count 5.7, Red Blood Count 2.33L, Hemoglobin 6.8*L, Hematocrit 20.9L , Mean Corpuscular Volume 90, Mean Corpuscular Hemoglobin 29.0, Mean Corpuscular Hemoglobin Concent 32.3, Red Cell Distribution Width 16.2H, Platelet Count 123L, Mean Platelet Volume 9.7, Neutrophils (%) (Auto) , Lymphocytes (%) (Auto) , Monocytes (%) (Auto) , Eosinophils (%) (Auto) , Basophils (%) (Auto) , Differential Total Cells Counted 100, Neutrophils % (Manual) 71, Lymphocytes % (Manual) 18L, Monocytes % (Manual) 11H, Eosinophils % (Manual) 0, Basophils % (Manual) 0, Band Neutrophils 0, Platelet Estimate DecreasedL, Platelet Morphology Normal, Hypochromasia 2+, Anisocytosis 1+, Target Cells Occasional, Sodium Level 145, Potassium Level 3.7, Chloride Level 108H, Carbon Dioxide Level 29, Anion Gap 8, Blood Urea Nitrogen 84H, Creatinine 4.6H, Estimat Glomerular Filtration Rate 9.3, Glucose Level 71L, Calcium Level 7.3L, Phosphorus Level 5.6H, Magnesium Level 1.6L Height (Feet): 5 Height (Inches): 4.00 Weight (Pounds): 160 Objective General: WDWN female in NAD, Altered. A&O x 0-1. Sleepy but arousable HEENT: Normocephalic cephalic atraumatic, pupils equal round reactive to light and accommodation, nares patent and no symmetrical, no tonsillar exudates, mucous membranes moist CV: Regular rate regular rhythm, no murmurs, rubs, or gallops. Previous right tunneled cath site with gauze over. No active bleeding. Pulm: Lungs clear to auscultation bilaterally. No wheezes, rhonchi, or rales GI: Soft, nontender, nondistended, bowel sounds present Neuro: CN 2-12 intact bilaterally, no focal signs. Moving all extremities Ext: No lower extremity edema bilaterally Skin: no rashes lesions or ulcers Msk: Joints symmetrical in upper extremity and lower extremity bilaterally, no joint swelling. Lymph: No lymphadenopathy in upper extremity and lower extremity Assessment/Plan Status: progressing, not improved, unchanged Assessment/Plan: 74 yo F with PMHX CHF. CKD4, opioid abuser, chronic untraceable pain syndrome, admitted for CHF exacerbation and fluid overload # Acute systolic heart failure exacerbation. # s/p CKD5 # Now ESRD # Acute metabolic encephalopathy - improving - lasix 60mg BID - fluid restriction - plan for HD with Dr. Munroe, [facility] - IR to place HD catheter. - No family or surrogate decision makers available at this time. Patient lacks capacity. Completely altered. Social work consulted. - At this time patient unable to make their own health care decisions. Procedure or treatment is necessary to alleviate severe pain and/or, if not performed, would lead to serious disability or . - patient unable to maker her own health care decision likely due to uremic encephalopathy I also believe HD is necessary to improved her current condition therefore we will proceed with permcath placement as renal replacement therapy is felt to prevent major disability - Renal/heart healthy diet - asa 81 - 2D echo - will start bb and acei when pt is more compliance - NC #Acute blood loss anemia 2/2 tunneled cath line removal > no further signs of bleeding - PRBC transfusion today - Patient still unable to consent and no surrogate decision maker available. Agree to proceed due to emergent nature. #Elevated alk phos #elevated GGT > Suspect could be due to hepatic congestion from heart failure - abdominal ultrasound: gallbladder thickening - > D/w Surgery. No suspicion for cholecystitis - Appreciate gen surgery recommendations: D/w Dr. Lema #Acute systolic heart failure exacerbation #Elevated troponin, suspect due to demand ischemia and ESRD. Appreciate cardiology input - EF 20-25%. Global hypokinesis D/w Cardiology. Ischemia vs. history of cocaine use - HD per nephrology - appreciate cardiology recommendations #Urinary tract infection - blood cultures - urine culture - Sarah (02/23 - ) # LE edema - US LE to r/o dvt: pending # untraceble pain # Opioid abuse #H/o cocaine abuse - avoid unnecessary narcotic - consider pain management FENPPX DVTPPX: Diet: renal Lines: tunneled line pending PT/OT: pending Code status: full per policy Dispo: SNF eventually Reason for Continued Hospitalization: ESRD, encephalopathy 36 minutes spent on this encounter, and 22 minutes spent on counseling and care coordination. Discussed with surgery, cardiology, ID, nephrology Time of note may not reflect time patient was seen. Silvestre Cruz D.O. Feb 27, 2020 19:11
--- NOTE | 2020-02-27 19:25 | NUR ---
NURSE HAND-OFF: Important Events on Shift: HD cath placement done Patient Status: stable Diet: renal mechanical soft diet Pending Orders: PCR Pending Results/Labs:n/a Pending MD notification:n/a Latest Vital Signs: Temperature 97.7 , Pulse 80 , B/P 143 /77 , Respiratory Rate 18 , O2 SAT 100 , Nasal Cannula, O2 Flow Rate 2.0 . Vital Sign Comment: stable Latest Mcconnell Fall Score: 70 Fall Risk: High Risk Safety Measures: Call light Within Reach, Bed Alarm Zone 1, Side Rails Side Rails x3, Bed position Low and Locked. Fall Precautions: Yellow Socks Yellow Gown Door Sign Patient Fall Education Report given to MARY Hui.
--- NOTE | 2020-02-27 19:37 | NUR ---
NURSE NOTES: Pt. received from MARY Gastelum. Pt. AAOx2 on 4L NC, breathing even and unlabored, no indications of respiratory distress, no complaints of pain. IV left wrist 22g intact and patent with x1 unit pRBC transfusing; no indications of distress. HD cath placed today, anticipating HD 02/27 and VIP was called by day shift nurse. Currently with soft bilateral wrist restraints, movement and sensation intact, pulses palpable. Bed low and locked, side rails x3 up, bed alarm active, and call light in reach.
[2020-02-27] MEDS: cefTRIAXone 1 GM in D5W 55 ML IVPB SCH (20:28)
[2020-02-27] MEDS: Epoetin Alfa-EPBX(ESRD on dialysis)4000 units/ml vial SUBQ SCH (21:43)
--- NOTE | 2020-02-27 21:49 | Neurology Progress Note ---
Interim History Interim History ROS Limited/Unobtainable: Yes Interim History weak and somnolent, getting tranfusion Objective Physical Exam Last Vital Signs Date Time Temp Pulse Resp B/P (MAP) Pulse Ox O2 Delivery O2 Flow Rate FiO2 02/27/20 21:43 167/85 02/27/20 17:45 97.7 80 18 100 02/27/20 15:35 2.0 02/27/20 09:00 Nasal Cannula Laboratory Tests Test 02/27/20 05:32 White Blood Count 5.7 K/UL (4.8-10.8) Red Blood Count 2.33 M/UL (4.20-5.40) L Hemoglobin 6.8 G/DL (12.0-16.0) *L Hematocrit 20.9 % (37.0-47.0) L Mean Corpuscular Volume 90 FL (80-99) Mean Corpuscular Hemoglobin 29.0 PG (27.0-31.0) Mean Corpuscular Hemoglobin Concent 32.3 G/DL (32.0-36.0) Red Cell Distribution Width 16.2 % (11.6-14.8) H Platelet Count 123 K/UL (150-450) L Mean Platelet Volume 9.7 FL (6.5-10.1) Neutrophils (%) (Auto) % (45.0-75.0) Lymphocytes (%) (Auto) % (20.0-45.0) Monocytes (%) (Auto) % (1.0-10.0) Eosinophils (%) (Auto) % (0.0-3.0) Basophils (%) (Auto) % (0.0-2.0) Differential Total Cells Counted 100 Neutrophils % (Manual) 71 % (45-75) Lymphocytes % (Manual) 18 % (20-45) L Monocytes % (Manual) 11 % (1-10) H Eosinophils % (Manual) 0 % (0-3) Basophils % (Manual) 0 % (0-2) Band Neutrophils 0 % (0-8) Platelet Estimate Decreased L Platelet Morphology Normal Hypochromasia 2+ Anisocytosis 1+ Target Cells Occasional Sodium Level 145 MMOL/L (136-145) Potassium Level 3.7 MMOL/L (3.5-5.1) Chloride Level 108 MMOL/L (98-107) H Carbon Dioxide Level 29 MMOL/L (21-32) Anion Gap 8 mmol/L (5-15) Blood Urea Nitrogen 84 mg/dL (7-18) H Creatinine 4.6 MG/DL (0.55-1.30) H Estimat Glomerular Filtration Rate 9.3 mL/min (>60) Glucose Level 71 MG/DL (74-106) L Calcium Level 7.3 MG/DL (8.5-10.1) L Phosphorus Level 5.6 MG/DL (2.5-4.9) H Magnesium Level 1.6 MG/DL (1.8-2.4) L Head: normocophalic Neck: no rigidity EENT: benign Neurologic Exam Mental Status: awake, alert Cranial Nerve II: visual juarez Cranial Nerves III, IV, : PERRLA, EOMI Cranial Nerve V: normal facial sensations Objective ao x 2 flapping noted tangential non focal Impression/Recommendations Problems: (1) Anemia (2) UTI (urinary tract infection) (3) Hypertension (4) ESRF (end stage renal failure) (5) Noncompliance (6) Head injury, acute (7) Cocaine abuse (8) Acute exacerbation of CHF (congestive heart failure) (9) Pain syndrome, chronic (10) Elevated troponin I level (11) Abdominal discomfort (12) Abnormal LFTs Status: progressing, not improved, unchanged Diagnostic Impression acute encephalopathy, likely uremic agitation tele seroquel 25 mg bid standing HD per nephro PT OT as able no opioids Hay Johnson MD Feb 27, 2020 21:49
[2020-02-27] MEDS: HYDROcodone/Acetamin 10/325 tab ORAL PRN (23:38)
[2020-02-28] VITALS: BP 157/93
[2020-02-28] MEDS: HydrALAZINE 25mg tab ORAL PRN (03:39)
[2020-02-28 04:00] VITALS: BP 170/101
--- NOTE | 2020-02-28 04:22 | Cardiology Progress Note ---
Subjective DATE OF SERVICE: Feb 27, 2020 New dialysis access placed Remains confused 2D Echo: EF30%, severe pulm HTN with PAP 90mmHg, global and regional wall motion abnormalities Objective Last 24 Hour Vital Signs Date Time Temp Pulse Resp B/P (MAP) Pulse Ox O2 Delivery O2 Flow Rate FiO2 02/28/20 04:00 97.9 87 20 170/101 (124) 94 02/28/20 03:39 171/100 02/28/20 00:00 99.7 91 18 157/93 (114) 97 02/27/20 21:43 167/85 02/27/20 21:00 Nasal Cannula 2.0 02/27/20 20:00 97.5 93 19 165/106 (125) 100 02/27/20 17:47 143/77 02/27/20 17:47 143/77 02/27/20 17:45 97.7 80 18 150/75 (100) 100 02/27/20 17:00 97.7 87 18 143/77 (99) 100 02/27/20 16:30 95 18 168/95 100 02/27/20 16:29 98.1 95 18 168/95 (119) 100 02/27/20 16:24 98.1 95 18 172/96 (121) 100 02/27/20 15:35 88 20 2.0 02/27/20 15:35 98.1 88 20 161/98 (119) 100 02/27/20 15:18 90 20 140/83 95 02/27/20 12:18 140/83 02/27/20 12:00 90 20 140/83 (102) 02/27/20 11:22 86 20 138/81 95 02/27/20 10:52 86 20 138/81 95 02/27/20 09:00 Nasal Cannula 4.0 02/27/20 09:00 86 138/81 02/27/20 08:00 99.0 86 20 138/81 (100) 95 02/27/20 06:02 169/90 02/27/20 06:01 169/90 ROS: unchanged from my assessment of 02/25/20 HEENT: normal ENT inspection RHYTHM: NSR, ST LUNGS: diminished breath sounds, rales bilaterally - few, other - Prior right chest wall cath site with no active bleeding CARDIAC: normal rate, regular rhythm, normal S1 and S2, systolic murmur - 2/6 systolic murmur at LLSB, gallop/S4 ABDOMEN: normal bowel sounds, non tender, soft, no organomegaly EXTREMITIES: normal range of motion, non-tender, +1 edema Laboratory Tests Test 02/27/20 05:32 White Blood Count 5.7 K/UL (4.8-10.8) Red Blood Count 2.33 M/UL (4.20-5.40) L Hemoglobin 6.8 G/DL (12.0-16.0) *L Hematocrit 20.9 % (37.0-47.0) L Mean Corpuscular Volume 90 FL (80-99) Mean Corpuscular Hemoglobin 29.0 PG (27.0-31.0) Mean Corpuscular Hemoglobin Concent 32.3 G/DL (32.0-36.0) Red Cell Distribution Width 16.2 % (11.6-14.8) H Platelet Count 123 K/UL (150-450) L Mean Platelet Volume 9.7 FL (6.5-10.1) Neutrophils (%) (Auto) % (45.0-75.0) Lymphocytes (%) (Auto) % (20.0-45.0) Monocytes (%) (Auto) % (1.0-10.0) Eosinophils (%) (Auto) % (0.0-3.0) Basophils (%) (Auto) % (0.0-2.0) Differential Total Cells Counted 100 Neutrophils % (Manual) 71 % (45-75) Lymphocytes % (Manual) 18 % (20-45) L Monocytes % (Manual) 11 % (1-10) H Eosinophils % (Manual) 0 % (0-3) Basophils % (Manual) 0 % (0-2) Band Neutrophils 0 % (0-8) Platelet Estimate Decreased L Platelet Morphology Normal Hypochromasia 2+ Anisocytosis 1+ Target Cells Occasional Sodium Level 145 MMOL/L (136-145) Potassium Level 3.7 MMOL/L (3.5-5.1) Chloride Level 108 MMOL/L (98-107) H Carbon Dioxide Level 29 MMOL/L (21-32) Anion Gap 8 mmol/L (5-15) Blood Urea Nitrogen 84 mg/dL (7-18) H Creatinine 4.6 MG/DL (0.55-1.30) H Estimat Glomerular Filtration Rate 9.3 mL/min (>60) Glucose Level 71 MG/DL (74-106) L Calcium Level 7.3 MG/DL (8.5-10.1) L Phosphorus Level 5.6 MG/DL (2.5-4.9) H Magnesium Level 1.6 MG/DL (1.8-2.4) L Microbiology Date/Time Source Procedure Growth Status 02/25/20 10:45 Blood Blood Culture - Preliminary NO GROWTH AFTER 48 HOURS Resulted 02/25/20 10:35 Blood Blood Culture - Preliminary NO GROWTH AFTER 48 HOURS Resulted 02/25/20 06:00 Rectum VRE Culture - Final NO VANCOMYCIN RESISTANT ENTEROCOCCUS ... Complete 02/25/20 06:00 Rectum - Final NO CARBAPENEM-RESISTANT ENTEROBACTERI... Complete 02/25/20 06:00 Nose MRSA Culture - Final Staphylococcus Aureus - Mrsa Complete Assessment/Plan Assessment/Plan Metabolic encephalopathy CKD5 Acute myocardial ischemia Ischemic and cocaine cardiomyopathy Severe pulmonary hypertension Acute on chronic systolic CHF Hypertensive urgency Anemia of CKD HD/UF Nitrates PRBC tx Anti-plt therapy Maximize antiHTN and anti-failure regimen; restart ACEi if diagnosed with ESRD Epo/Fe++; consider PRBC transfusion Sourav Montejo MD Feb 28, 2020 04:22
[2020-02-28] MEDS: Nitroglycerin 2% oint pkt TOPIC SCH ×3 (05:49→16:54)
[2020-02-28] MEDS: HydrALAZINE 25mg tab ORAL SCH ×3 (05:49→21:54)
[2020-02-28] MEDS: Heparin 5000 units/ml inj SUBQ SCH ×3 (05:54→21:55)
--- NOTE | 2020-02-28 07:43 | NUR ---
NURSE HAND-OFF: Important Events on Shift:[pt swabbed and now PUI, hypertensive and controlled with BP meds] Patient Status: awake, agitated Diet: renal Pending Orders: na Pending Results/Labs:na Pending MD notification:na Latest Vital Signs: Temperature 97.9 , Pulse 87 , B/P 159 /101 , Respiratory Rate 20 , O2 SAT 94 , Nasal Cannula, O2 Flow Rate 2.0 . Vital Sign Comment: stable Latest Mcconnell Fall Score: 70 Fall Risk: High Risk Safety Measures: Call light Within Reach, Bed Alarm Zone 1, Side Rails Side Rails x3, Bed position Low and Locked. Fall Precautions: Yellow Socks Yellow Gown Door Sign Patient Fall Education Report given to MARY Farnsworth.
[2020-02-28 08:00] VITALS: BP 119/73
--- NOTE | 2020-02-28 08:00 | NUR ---
NURSE NOTES: Received pt from MARY Hui. pt was resting no acute distress. call light w/in reach.
[2020-02-28] MEDS: Aspirin Baby 81mg ORAL SCH (10:31)
[2020-02-28 12:00] VITALS: BP 161/71
[2020-02-28 13:41] LABS: BASOPHILS % (AUTO) 1.4 % (0.0-2.0); EOSINOPHILS % (AUTO) 3.8 % (0.0-3.0); HEMATOCRIT 27.5 % (37.0-47.0); HEMOGLOBIN 8.9 G/DL (12.0-16.0); LYMPHOCYTES % (AUTO) 9.9 % (20.0-45.0); MEAN CORPUSCULAR VOLUME 90 FL (80-99); MONOCYTES % (AUTO) 9.7 % (1.0-10.0); NEUTROPHILS % (AUTO) 75.1 % (45.0-75.0); PLATELET COUNT 151 K/UL (150-450); RED BLOOD COUNT 3.06 M/UL (4.20-5.40); RED CELL DISTRIBUTION WIDTH 17.3 % (11.6-14.8); WHITE BLOOD COUNT 6.8 K/UL (4.8-10.8)
[2020-02-28 13:56] LABS: CALCIUM 7.4 MG/DL (8.5-10.1); CREATININE 4.6 MG/DL (0.55-1.30); PHOSPHORUS 5.4 MG/DL (2.5-4.9); POTASSIUM 3.7 MMOL/L (3.5-5.1)
--- NOTE | 2020-02-28 15:46 | Neurology Progress Note ---
Interim History Interim History ROS Limited/Unobtainable: Yes Interim History no new deficits more calm Objective Physical Exam Last Vital Signs Date Time Temp Pulse Resp B/P (MAP) Pulse Ox O2 Delivery O2 Flow Rate FiO2 02/28/20 12:12 160/105 02/28/20 12:00 97.1 87 20 97 02/28/20 09:00 Nasal Cannula 2.0 Laboratory Tests Test 02/28/20 12:59 White Blood Count 6.8 K/UL (4.8-10.8) Red Blood Count 3.06 M/UL (4.20-5.40) L Hemoglobin 8.9 G/DL (12.0-16.0) #L Hematocrit 27.5 % (37.0-47.0) #L Mean Corpuscular Volume 90 FL (80-99) Mean Corpuscular Hemoglobin 29.2 PG (27.0-31.0) Mean Corpuscular Hemoglobin Concent 32.5 G/DL (32.0-36.0) Red Cell Distribution Width 17.3 % (11.6-14.8) H Platelet Count 151 K/UL (150-450) Mean Platelet Volume 8.4 FL (6.5-10.1) Neutrophils (%) (Auto) 75.1 % (45.0-75.0) H Lymphocytes (%) (Auto) 9.9 % (20.0-45.0) L Monocytes (%) (Auto) 9.7 % (1.0-10.0) Eosinophils (%) (Auto) 3.8 % (0.0-3.0) H Basophils (%) (Auto) 1.4 % (0.0-2.0) Sodium Level 146 MMOL/L (136-145) H Potassium Level 3.7 MMOL/L (3.5-5.1) Chloride Level 108 MMOL/L (98-107) H Carbon Dioxide Level 32 MMOL/L (21-32) Anion Gap 6 mmol/L (5-15) Blood Urea Nitrogen 83 mg/dL (7-18) H Creatinine 4.6 MG/DL (0.55-1.30) H Estimat Glomerular Filtration Rate 9.3 mL/min (>60) Glucose Level 147 MG/DL (74-106) H Calcium Level 7.4 MG/DL (8.5-10.1) L Phosphorus Level 5.4 MG/DL (2.5-4.9) H Magnesium Level 1.7 MG/DL (1.8-2.4) L Head: normocophalic Neck: no rigidity EENT: benign Neurologic Exam Mental Status: awake, alert Cranial Nerve II: visual juarez Cranial Nerves III, IV, : PERRLA, EOMI Cranial Nerve V: normal facial sensations Objective ao x 2 flapping noted tangential non focal Impression/Recommendations Problems: (1) Anemia (2) UTI (urinary tract infection) (3) Hypertension (4) ESRF (end stage renal failure) (5) Noncompliance (6) Head injury, acute (7) Cocaine abuse (8) Acute exacerbation of CHF (congestive heart failure) (9) Pain syndrome, chronic (10) Elevated troponin I level (11) Abdominal discomfort (12) Abnormal LFTs Status: progressing, not improved, unchanged Diagnostic Impression acute encephalopathy, likely uremic agitation tele seroquel 25 mg bid standing HD per nephro PT OT as able no opioids Hay Johnson MD Feb 28, 2020 15:46
[2020-02-28 16:00] VITALS: BP 189/105
--- NOTE | 2020-02-28 17:18 | Nephrology Progress Note ---
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 #troponemia #CHF #h/o polysubtance abuse, cocaine abuser #HTN #anemia - HD today - monitor hemoglobin level - cardiology eval - 2D Echo: EF30%, severe pulm HTN with PAP 90mmHg, global and regional wall motion abnormalities - amlodipine 10mg daily - hydralazine 25 TID - continue lasix 60 V BID for now - ceftriaxone for UTI -continue epo - monitor electrolytes time spent 65 min Subjective ROS Limited/Unobtainable: Yes Subjective hemoglobin 6.8 yesetrday - improved s/p 1 unit of prbc 2D Echo: EF30%, severe pulm HTN with PAP 90mmHg, global and regional wall motion abnormalities remains confused Objective Objective Last 24 Hour Vital Signs Date Time Temp Pulse Resp B/P (MAP) Pulse Ox O2 Delivery O2 Flow Rate FiO2 02/28/20 16:54 189/107 02/28/20 16:53 189/105 02/28/20 12:12 160/105 02/28/20 12:00 97.1 87 20 161/71 (101) 97 02/28/20 09:00 Nasal Cannula 2.0 02/28/20 08:00 98.6 71 20 119/73 (88) 99 02/28/20 05:49 159/101 02/28/20 05:49 159/101 02/28/20 04:00 97.9 87 20 170/101 (124) 94 02/28/20 03:39 171/100 02/28/20 00:00 99.7 91 18 157/93 (114) 97 02/27/20 21:43 167/85 02/27/20 21:00 Nasal Cannula 2.0 02/27/20 20:00 97.5 93 19 165/106 (125) 100 02/27/20 17:47 143/77 02/27/20 17:47 143/77 02/27/20 17:45 97.7 80 18 150/75 (100) 100 Intake and Output 02/27/20 02/28/20 19:00 07:00 Intake Total 100 ml 173 ml Balance 100 ml 173 ml Intake Oral 100 ml IV Total 55 ml Other 118 ml # Voids 3 2 # Bowel Movements 1 Laboratory Tests 02/28/20 12:59: White Blood Count 6.8, Red Blood Count 3.06L, Hemoglobin 8.9#L, Hematocrit 27.5#L, Mean Corpuscular Volume 90, Mean Corpuscular Hemoglobin 29.2, Mean Corpuscular Hemoglobin Concent 32.5, Red Cell Distribution Width 17.3H, Platelet Count 151, Mean Platelet Volume 8.4, Neutrophils (%) (Auto) 75.1H, Lymphocytes (%) (Auto) 9.9L, Monocytes (%) (Auto) 9.7, Eosinophils (%) (Auto) 3.8H, Basophils (%) (Auto) 1.4, Sodium Level 146H, Potassium Level 3.7, Chloride Level 108H, Carbon Dioxide Level 32, Anion Gap 6, Blood Urea Nitrogen 83H, Creatinine 4.6H, Estimat Glomerular Filtration Rate 9.3, Glucose Level 147H, Calcium Level 7.4L, Phosphorus Level 5.4H, Magnesium Level 1.7L Height (Feet): 5 Height (Inches): 4.00 Weight (Pounds): 160 Ace Munroe M.D. Feb 28, 2020 17:18
--- NOTE | 2020-02-28 18:28 | Surgery Progress Note ---
Surgery Progress Note Subjective Symptoms: improved, tolerating diet, passing flatus Objective Last 24 Hour Vital Signs Date Time Temp Pulse Resp B/P (MAP) Pulse Ox O2 Delivery O2 Flow Rate FiO2 02/28/20 16:54 189/107 02/28/20 16:53 189/105 02/28/20 16:00 98.1 90 20 189/105 (133) 97 02/28/20 12:12 160/105 02/28/20 12:00 97.1 87 20 161/71 (101) 97 02/28/20 09:00 Nasal Cannula 2.0 02/28/20 08:00 98.6 71 20 119/73 (88) 99 02/28/20 05:49 159/101 02/28/20 05:49 159/101 02/28/20 04:00 97.9 87 20 170/101 (124) 94 02/28/20 03:39 171/100 02/28/20 00:00 99.7 91 18 157/93 (114) 97 02/27/20 21:43 167/85 02/27/20 21:00 Nasal Cannula 2.0 02/27/20 20:00 97.5 93 19 165/106 (125) 100 I&O Intake and Output 02/27/20 02/28/20 19:00 07:00 Intake Total 100 ml 173 ml Balance 100 ml 173 ml Intake Oral 100 ml IV Total 55 ml Other 118 ml # Voids 3 2 # Bowel Movements 1 Dressing: saturated Cardiovascular: RSR Respiratory: decreased breath sounds Abdomen: non-tender, present bowel sounds Extremities: no tenderness, no cyanosis Laboratory Tests Test 02/28/20 12:59 White Blood Count 6.8 K/UL (4.8-10.8) Red Blood Count 3.06 M/UL (4.20-5.40) L Hemoglobin 8.9 G/DL (12.0-16.0) #L Hematocrit 27.5 % (37.0-47.0) #L Mean Corpuscular Volume 90 FL (80-99) Mean Corpuscular Hemoglobin 29.2 PG (27.0-31.0) Mean Corpuscular Hemoglobin Concent 32.5 G/DL (32.0-36.0) Red Cell Distribution Width 17.3 % (11.6-14.8) H Platelet Count 151 K/UL (150-450) Mean Platelet Volume 8.4 FL (6.5-10.1) Neutrophils (%) (Auto) 75.1 % (45.0-75.0) H Lymphocytes (%) (Auto) 9.9 % (20.0-45.0) L Monocytes (%) (Auto) 9.7 % (1.0-10.0) Eosinophils (%) (Auto) 3.8 % (0.0-3.0) H Basophils (%) (Auto) 1.4 % (0.0-2.0) Sodium Level 146 MMOL/L (136-145) H Potassium Level 3.7 MMOL/L (3.5-5.1) Chloride Level 108 MMOL/L (98-107) H Carbon Dioxide Level 32 MMOL/L (21-32) Anion Gap 6 mmol/L (5-15) Blood Urea Nitrogen 83 mg/dL (7-18) H Creatinine 4.6 MG/DL (0.55-1.30) H Estimat Glomerular Filtration Rate 9.3 mL/min (>60) Glucose Level 147 MG/DL (74-106) H Calcium Level 7.4 MG/DL (8.5-10.1) L Phosphorus Level 5.4 MG/DL (2.5-4.9) H Magnesium Level 1.7 MG/DL (1.8-2.4) L Plan Problems: (1) Abnormal LFTs Assessment & Plan: Patient identified to have elevated LFTs on admission. Complaints abdominal discomfort. No imaging currently performed. Abdominal ultrasound ordered. Trend labs IV fluids will monitor recommendations with evaluation of medications and serial abdominal exams. Exam is limited due to patient having limited ability to cooperate. Gallbladder demonstrates focal wall thickening and edema, gallbladder wall just over 4 mm thick. There is also small amount of pericholecystic fluid No gallstones. Sonographic Lewis's sign is negative. Common bile duct measures 5 mm in diameter. No intrahepatic biliary ductal dilatation. Liver demonstrates slightly increased echogenicity, no focal abnormality. Portal vein and hepatic veins are patent. Pancreas is unremarkable. Spleen is unremarkable. Left kidney measures 7.7 cm in length. Right kidney measures 8 cm length. Both kidneys demonstrate increased echogenicity There is no hydronephrosis. No focal abnormality . Abdominal aorta is partially obscured by bowel gas, visualized portions are non-aneurysmal . Right pleural effusion incidentally noted Impression: Somewhat limited exam, as described Increased renal echogenicity bilaterally, indicating medical renal disease. Incidental finding of bilateral renal cysts Mildly increased hepatic echogenicity, likely medical renal disease Negative for gallstones. There is focal gallbladder wall thickening and some pericholecystic fluid. This is probably due to edema of systemic causes but the possibility of acalculous acute cholecystitis should also be considered Right pleural effusion Note incompletely visualized distal abdominal aorta (2) Abdominal discomfort Assessment & Plan: No significant bowel distention. Discomfort on palpation asking for pain medications. No nausea vomiting fever chills. Okay for diet as tolerated we will follow with serial exams Thank allowing participation's care (3) Anemia (4) UTI (urinary tract infection) (5) Hypertension (6) ESRF (end stage renal failure) (7) Noncompliance (8) Head injury, acute (9) Cocaine abuse (10) Acute exacerbation of CHF (congestive heart failure) (11) Pain syndrome, chronic (12) Elevated troponin I level Blu Lema Feb 28, 2020 18:28
--- NOTE | 2020-02-28 19:40 | NUR ---
HAND-OFF: Report given to MARY Thrasher. pt is stable condition.
--- NOTE | 2020-02-28 19:47 | General Progress Note ---
Subjective Allergies: Coded Allergies: SULFA (SULFONAMIDE ANTIBIOTICS) (Verified Allergy, Unknown, 02/24/20) Subjective No acute events overnight per nursing. Patient much more awake today. But still altered. Planning for HD again. Status post 1 unit PRBC yesterday. Hemoglobin improved to 8.9. No signs of further bleeding. Blood pressure slightly more elevated today. Still on 2 L nasal cannula. Further subjective history unable to be obtained due to ALOC Review of systems: Unable to be obtained due to ALOC Objective Last 24 Hour Vital Signs Date Time Temp Pulse Resp B/P (MAP) Pulse Ox O2 Delivery O2 Flow Rate FiO2 02/28/20 16:54 189/107 02/28/20 16:53 189/105 02/28/20 16:00 98.1 90 20 189/105 (133) 97 02/28/20 12:12 160/105 02/28/20 12:00 97.1 87 20 161/71 (101) 97 02/28/20 09:00 Nasal Cannula 2.0 02/28/20 08:00 98.6 71 20 119/73 (88) 99 02/28/20 05:49 159/101 02/28/20 05:49 159/101 02/28/20 04:00 97.9 87 20 170/101 (124) 94 02/28/20 03:39 171/100 02/28/20 00:00 99.7 91 18 157/93 (114) 97 02/27/20 21:43 167/85 02/27/20 21:00 Nasal Cannula 2.0 02/27/20 20:00 97.5 93 19 165/106 (125) 100 Intake and Output 02/27/20 02/28/20 19:00 07:00 Intake Total 100 ml 173 ml Balance 100 ml 173 ml Intake Oral 100 ml IV Total 55 ml Other 118 ml # Voids 3 2 # Bowel Movements 1 Laboratory Tests 02/28/20 12:59: White Blood Count 6.8, Red Blood Count 3.06L, Hemoglobin 8.9#L, Hematocrit 27.5#L, Mean Corpuscular Volume 90, Mean Corpuscular Hemoglobin 29.2, Mean Corpuscular Hemoglobin Concent 32.5, Red Cell Distribution Width 17.3H, Platelet Count 151, Mean Platelet Volume 8.4, Neutrophils (%) (Auto) 75.1H, Lymphocytes (%) (Auto) 9.9L, Monocytes (%) (Auto) 9.7, Eosinophils (%) (Auto) 3.8H, Basophils (%) (Auto) 1.4, Sodium Level 146H, Potassium Level 3.7, Chloride Level 108H, Carbon Dioxide Level 32, Anion Gap 6, Blood Urea Nitrogen 83H, Creatinine 4.6H, Estimat Glomerular Filtration Rate 9.3, Glucose Level 147H, Calcium Level 7.4L, Phosphorus Level 5.4H, Magnesium Level 1.7L Height (Feet): 5 Height (Inches): 4.00 Weight (Pounds): 160 Objective General: WDWN female in NAD, Altered. A&O x 1. Awake and alert. In restraints for safety HEENT: Normocephalic cephalic atraumatic, pupils equal round reactive to light and accommodation, nares patent and no symmetrical, no tonsillar exudates, mucous membranes moist CV: Regular rate regular rhythm, no murmurs, rubs, or gallops. Previous right tunneled cath site with gauze over. No active bleeding. Pulm: Lungs clear to auscultation bilaterally. No wheezes, rhonchi, or rales GI: Soft, nontender, nondistended, bowel sounds present Neuro: CN 2-12 intact bilaterally, no focal signs. Moving all extremities Ext: No lower extremity edema bilaterally Skin: no rashes lesions or ulcers Msk: Joints symmetrical in upper extremity and lower extremity bilaterally, no joint swelling. Lymph: No lymphadenopathy in upper extremity and lower extremity Assessment/Plan Assessment/Plan: 74 yo F with PMHX CHF. CKD4, opioid abuser, chronic untraceable pain syndrome, admitted for CHF exacerbation and fluid overload # Acute systolic heart failure exacerbation. # s/p CKD5 # Now ESRD # Acute metabolic encephalopathy - improving - lasix 60mg BID - fluid restriction - plan for HD with Dr. Munroe, need coordiante care - No family or surrogate decision makers available at this time. Patient lacks capacity. Completely altered. Social work consulted. - At this time patient unable to make their own health care decisions. Procedure or treatment is necessary to alleviate severe pain and/or, if not performed, would lead to serious disability or . - patient unable to maker her own health care decision likely due to uremic encephalopathy I also believe HD is necessary to improved her current condition therefore we will proceed with permcath placement as renal replacement therapy is felt to prevent major disability - IR placed HD catheter. - Renal/heart healthy diet #Acute blood loss anemia 2/2 tunneled cath line removal > no further signs of bleeding - PRBC transfusion 02/26 with appropriate response - Patient still unable to consent and no surrogate decision maker available. Agree to proceed due to emergent nature. #Elevated alk phos #elevated GGT > Suspect could be due to hepatic congestion from heart failure - abdominal ultrasound: gallbladder thickening - > D/w Surgery. No suspicion for cholecystitis - Appreciate gen surgery recommendations: D/w Dr. Lema #Acute systolic heart failure exacerbation #Elevated troponin, suspect due to demand ischemia and ESRD. Appreciate cardiology input - EF 20-25%. Global hypokinesis D/w Cardiology. Ischemia vs. history of cocaine use - asa 81 - HD per nephrology - appreciate cardiology recommendations #Urinary tract infection - blood cultures: NGTD - urine culture: mixed results - Rocephin (02/23 - ) # LE edema - US LE to r/o dvt: pending # Opioid abuse #H/o cocaine abuse - avoid unnecessary narcotic FENPPX DVTPPX: Diet: renal Lines: tunneled line PT/OT: pending Code status: full per policy Dispo: SNF eventually Reason for Continued Hospitalization: ESRD, encephalopathy MIPS ([employer]it-based Incentive Payment System) Applicable CPT: 74342, 94659 CHECK ALL THAT ARE MET: [] Measure #5 (CHF): All ages. Prescribe BLACK/ARB upon discharge for patients with left ventricular systolic dysfunction. If not, the reason is clearly documented in the medical chart .[] Measure #8 (CHF): All ages. Prescribe a beta marlys upon discharge for patients with left ventricular systolic dysfunction. If not, the reason is clearly documented in the medical chart. [x] Measure #47: Advance care plan or surrogate decision maker documented in the medical record. [x] Measure #130 The provider has documented, updated, or reviewed the patients current medication list and has documented it in the patients note. [] Measure #374 (All): Send report to referring provider. [] Measure #407(Sepsis due to MSSA bacteremia): Age 18+ Patient treated with a beta-lactam antibiotic (Nafcillin, Oxacillin or Cefazolin) as definitive therapy. MEDICAL COMPLEXITYHigh complexity medical decision making (need 2/3 categories)Problem - need 4 points [x]Acute/new problem with new plan for workup (4 points, 1 max) [] Acute/new problem without additional workup (3 points, 1 max) [] Unstable chronic problem actively being managed (2 point each, 2 max) [] Stable chronic problem actively being managed (1 point each, 2 max) [] Self-limited/transient process (constipation, muscle ache, etc) (1 point each, 2 max) Data - need 4 points [x] Reviewed labs/imaging studies (1 points, 2 max) [x] Independent review of imaging (EKG, xrays, etc) (2 points, 2 max) [x] Discussed case with consult/other MD/RN (2 points, 2 max) High Risk - qualify if have one of the following: [x] Severe exacerbation of acute problem, acute mental status change, IV narcotics, monitoring drug levels (vancomycin, INR, tacrolimus etc) I spent 38 minutes on this patient's case, and 20 mins was dedicated to counseling and/or care coordination. Discussed with nephro, Bedside RN Time of note may not reflect time of encounter Silvestre Cruz D.O. Feb 28, 2020 19:47
--- NOTE | 2020-02-28 19:47 | NUR ---
NURSE NOTES: The patient is alert and oriented x3 also noted with confusion, forgetfulness and agitations .The patient is presently on RA but has PRN oxygen 2 liters.She is very anxious, trying to take out her IV line. She is on Bilateral soft Wrist restraint well tolerated. The patient has a R. upper chest PermCath noted with clean and intact dressing. IV line is on the left wrist 22g that is patent and asymptomatic.Dialysis was done yesterday with 2 liters of fluids taken out. The bed in low level, call light within easy reach, siderails up x2. Will continue to monitor as indicated
[2020-02-28 20:00] VITALS: BP 165/91
[2020-02-28] MEDS: cefTRIAXone 1 GM in D5W 55 ML IVPB SCH (21:56)
[2020-02-28] MEDS: LORazepam Inj 2mg/ml 1ml IV PRN (21:57)
[2020-02-29] VITALS: BP 158/98
--- NOTE | 2020-02-29 01:13 | Cardiology Progress Note ---
Subjective DATE OF SERVICE: Feb 28, 2020 New dialysis access placed yesterday. s/p HD/UF 02/27/20 Remains confused 2D Echo: EF30%, severe pulm HTN with PAP 90mmHg, global and regional wall motion abnormalities Objective Last 24 Hour Vital Signs Date Time Temp Pulse Resp B/P (MAP) Pulse Ox O2 Delivery O2 Flow Rate FiO2 02/28/20 21:54 154/94 02/28/20 21:00 Nasal Cannula 2.0 02/28/20 20:00 97.8 92 22 165/91 (115) 94 02/28/20 16:54 189/107 02/28/20 16:53 189/105 02/28/20 16:00 98.1 90 20 189/105 (133) 97 02/28/20 12:12 160/105 02/28/20 12:00 97.1 87 20 161/71 (101) 97 02/28/20 09:00 Nasal Cannula 2.0 02/28/20 08:00 98.6 71 20 119/73 (88) 99 02/28/20 05:49 159/101 02/28/20 05:49 159/101 02/28/20 04:00 97.9 87 20 170/101 (124) 94 02/28/20 03:39 171/100 ROS: unchanged from my assessment of 02/25/20 HEENT: normal ENT inspection RHYTHM: NSR, ST LUNGS: diminished breath sounds, rales bilaterally - few, other - Right chest wall cath site with no active bleeding CARDIAC: normal rate, regular rhythm, normal S1 and S2, systolic murmur - 2/6 systolic murmur at LLSB, gallop/S4 ABDOMEN: normal bowel sounds, non tender, soft, no organomegaly EXTREMITIES: normal range of motion, non-tender, +1 edema Laboratory Tests Test 02/28/20 12:59 White Blood Count 6.8 K/UL (4.8-10.8) Red Blood Count 3.06 M/UL (4.20-5.40) L Hemoglobin 8.9 G/DL (12.0-16.0) #L Hematocrit 27.5 % (37.0-47.0) #L Mean Corpuscular Volume 90 FL (80-99) Mean Corpuscular Hemoglobin 29.2 PG (27.0-31.0) Mean Corpuscular Hemoglobin Concent 32.5 G/DL (32.0-36.0) Red Cell Distribution Width 17.3 % (11.6-14.8) H Platelet Count 151 K/UL (150-450) Mean Platelet Volume 8.4 FL (6.5-10.1) Neutrophils (%) (Auto) 75.1 % (45.0-75.0) H Lymphocytes (%) (Auto) 9.9 % (20.0-45.0) L Monocytes (%) (Auto) 9.7 % (1.0-10.0) Eosinophils (%) (Auto) 3.8 % (0.0-3.0) H Basophils (%) (Auto) 1.4 % (0.0-2.0) Sodium Level 146 MMOL/L (136-145) H Potassium Level 3.7 MMOL/L (3.5-5.1) Chloride Level 108 MMOL/L (98-107) H Carbon Dioxide Level 32 MMOL/L (21-32) Anion Gap 6 mmol/L (5-15) Blood Urea Nitrogen 83 mg/dL (7-18) H Creatinine 4.6 MG/DL (0.55-1.30) H Estimat Glomerular Filtration Rate 9.3 mL/min (>60) Glucose Level 147 MG/DL (74-106) H Calcium Level 7.4 MG/DL (8.5-10.1) L Phosphorus Level 5.4 MG/DL (2.5-4.9) H Magnesium Level 1.7 MG/DL (1.8-2.4) L Assessment/Plan Assessment/Plan Metabolic encephalopathy CKD5 now with presumed ESRD Acute myocardial ischemia Ischemic and cocaine cardiomyopathy Severe pulmonary hypertension Acute on chronic systolic CHF Hypertensive urgency Anemia of CKD HD/UF Nitrates PRBC tx Anti-plt therapy Maximize antiHTN and anti-failure regimen; start ACEi since diagnosed with ESRD Epo/Fe++; consider PRBC transfusion Sourav Montejo MD Feb 29, 2020 01:13
[2020-02-29 04:00] VITALS: BP 155/97
[2020-02-29] MEDS: HydrALAZINE 25mg tab ORAL SCH ×2 (05:55→14:00)
[2020-02-29] MEDS: Nitroglycerin 2% oint pkt TOPIC SCH ×3 (05:56→17:59)
[2020-02-29] MEDS: Heparin 5000 units/ml inj SUBQ SCH ×3 (05:57→21:12)
--- NOTE | 2020-02-29 07:08 | NUR ---
NURSE NOTES: RECEIVED PATIENT FROM MARY MULLINS. PATIENT IS SLEEPING, AROUSABLE, ON ROOM AIR, NO ACUTE DISTRESS NOTED. PIV INTACT AND PATENT. PERMA CATH ON RIGHT UPPER CHEST, DRESSING DRY AND INTACT. PATIENT ON BILATERAL RESTRAINTS, NO REDNESS OR SWELLING, PULSES PRESENT. BED IS LOCKED AND LOW, BED ALARMS NOTED, SIDE RAILS UPX2 AND CALL LIGHT IS WITHIN REACH. WILL CONTINUE TO MONITOR. Addendum: 03/01/20 at 0714 by Anisa Graves RN WRONG TIME STAMP
--- NOTE | 2020-02-29 07:20 | NUR ---
NURSE HAND-OFF: Important Events on Shift:Dialysis was done yesterday 2 liters of fluids taken out Patient Status: Diet: Pending Orders: Pending Results/Labs: Pending MD notification: Latest Vital Signs: Temperature 98.1 , Pulse 96 , B/P 155 /98 , Respiratory Rate 19 , O2 SAT 95 , Nasal Cannula, O2 Flow Rate 2.0 . Vital Sign Comment: Latest Mcconnell Fall Score: 50 Fall Risk: High Risk Safety Measures: Call light Within Reach, Bed Alarm Zone 1, Side Rails Side Rails x3, Bed position Low and Locked. Fall Precautions: Yellow Socks Yellow Gown Door Sign Patient Fall Education Report given to .
--- NOTE | 2020-02-29 07:30 | NUR ---
NURSE NOTES: Patient is in bed awake and able to verbalize needs. Stable. Denies pain or SOB. Breathing is even and unlabored on room air. Patient is on juan r soft wrist restraints. CSM intact. Patient instructed to use call light for assistance, verbalized understanding. Patient is in bed in locked and lowest position with call light within reach. All eneds met at t Addendum: 02/29/20 at 1437 by NICK DELEON RN All needs met at this time, will continue plan of care.
[2020-02-29 08:00] VITALS: BP 180/102
[2020-02-29 08:01] LABS: BASOPHILS % (AUTO) 1.6 % (0.0-2.0); EOSINOPHILS % (AUTO) 3.9 % (0.0-3.0); HEMATOCRIT 27.6 % (37.0-47.0); HEMOGLOBIN 8.7 G/DL (12.0-16.0); LYMPHOCYTES % (AUTO) 14.7 % (20.0-45.0); MEAN CORPUSCULAR VOLUME 92 FL (80-99); MONOCYTES % (AUTO) 14.5 % (1.0-10.0); NEUTROPHILS % (AUTO) 65.5 % (45.0-75.0); PLATELET COUNT 106 K/UL (150-450); RED BLOOD COUNT 2.98 M/UL (4.20-5.40); RED CELL DISTRIBUTION WIDTH 16.6 % (11.6-14.8); WHITE BLOOD COUNT 6.8 K/UL (4.8-10.8)
[2020-02-29 08:19] LABS: CALCIUM 8.2 MG/DL (8.5-10.1); CREATININE 3.6 MG/DL (0.55-1.30); PHOSPHORUS 3.8 MG/DL (2.5-4.9); POTASSIUM 3.3 MMOL/L (3.5-5.1)
[2020-02-29] MEDS ORDERED: Benazepril 10mg tab ORAL SCH (09:00)
[2020-02-29] MEDS: Aspirin Baby 81mg ORAL SCH (09:16)
[2020-02-29] MEDS: LORazepam Inj 2mg/ml 1ml IV PRN ×2 (09:17→16:08)
[2020-02-29] MEDS ORDERED: Tubing IV Secondary IV ONE (09:58)
[2020-02-29 12:00] VITALS: BP 172/103
--- NOTE | 2020-02-29 12:16 | Surgery Progress Note ---
Surgery Progress Note Subjective Symptoms: improved, tolerating diet, passing flatus, BM Objective Last 24 Hour Vital Signs Date Time Temp Pulse Resp B/P (MAP) Pulse Ox O2 Delivery O2 Flow Rate FiO2 02/29/20 09:47 109 20 180/102 95 02/29/20 09:18 180/102 02/29/20 09:17 109 20 180/102 95 02/29/20 09:17 109 180/102 02/29/20 09:00 Nasal Cannula 2.0 02/29/20 08:00 97.4 109 22 180/102 (128) 95 02/29/20 05:56 155/98 02/29/20 05:55 155/98 02/29/20 04:00 98.1 96 19 155/97 (116) 95 02/29/20 00:00 97.5 105 20 158/98 (118) 95 02/28/20 21:54 154/94 02/28/20 21:00 Nasal Cannula 2.0 02/28/20 20:00 97.8 92 22 165/91 (115) 94 02/28/20 16:54 189/107 02/28/20 16:53 189/105 02/28/20 16:00 98.1 90 20 189/105 (133) 97 I&O Intake and Output 02/28/20 02/29/20 19:00 07:00 Intake Total 480 ml 70 ml Output Total 2000 ml 320 ml Balance -1520 ml -250 ml Intake Oral 480 ml 70 ml Output Urine Total 320 ml Hemodialysis UF 2000 ml # Voids 2 1 Dressing: saturated Cardiovascular: RSR Respiratory: decreased breath sounds Abdomen: non-tender, present bowel sounds, non-distended Extremities: no tenderness, no cyanosis Laboratory Tests Test 02/28/20 12:59 02/29/20 06:30 White Blood Count 6.8 K/UL (4.8-10.8) 6.8 K/UL (4.8-10.8) Red Blood Count 3.06 M/UL (4.20-5.40) L 2.98 M/UL (4.20-5.40) L Hemoglobin 8.9 G/DL (12.0-16.0) #L 8.7 G/DL (12.0-16.0) L Hematocrit 27.5 % (37.0-47.0) #L 27.6 % (37.0-47.0) L Mean Corpuscular Volume 90 FL (80-99) 92 FL (80-99) Mean Corpuscular Hemoglobin 29.2 PG (27.0-31.0) 29.1 PG (27.0-31.0) Mean Corpuscular Hemoglobin Concent 32.5 G/DL (32.0-36.0) 31.4 G/DL (32.0-36.0) L Red Cell Distribution Width 17.3 % (11.6-14.8) H 16.6 % (11.6-14.8) H Platelet Count 151 K/UL (150-450) 106 K/UL (150-450) L Mean Platelet Volume 8.4 FL (6.5-10.1) 8.1 FL (6.5-10.1) Neutrophils (%) (Auto) 75.1 % (45.0-75.0) H 65.5 % (45.0-75.0) Lymphocytes (%) (Auto) 9.9 % (20.0-45.0) L 14.7 % (20.0-45.0) L Monocytes (%) (Auto) 9.7 % (1.0-10.0) 14.5 % (1.0-10.0) H Eosinophils (%) (Auto) 3.8 % (0.0-3.0) H 3.9 % (0.0-3.0) H Basophils (%) (Auto) 1.4 % (0.0-2.0) 1.6 % (0.0-2.0) Sodium Level 146 MMOL/L (136-145) H 144 MMOL/L (136-145) Potassium Level 3.7 MMOL/L (3.5-5.1) 3.3 MMOL/L (3.5-5.1) L Chloride Level 108 MMOL/L (98-107) H 106 MMOL/L (98-107) Carbon Dioxide Level 32 MMOL/L (21-32) 28 MMOL/L (21-32) Anion Gap 6 mmol/L (5-15) 10 mmol/L (5-15) Blood Urea Nitrogen 83 mg/dL (7-18) H 53 mg/dL (7-18) H Creatinine 4.6 MG/DL (0.55-1.30) H 3.6 MG/DL (0.55-1.30) H Estimat Glomerular Filtration Rate 9.3 mL/min (>60) 12.4 mL/min (>60) Glucose Level 147 MG/DL (74-106) H 89 MG/DL (74-106) Calcium Level 7.4 MG/DL (8.5-10.1) L 8.2 MG/DL (8.5-10.1) L Phosphorus Level 5.4 MG/DL (2.5-4.9) H 3.8 MG/DL (2.5-4.9) Magnesium Level 1.7 MG/DL (1.8-2.4) L 1.6 MG/DL (1.8-2.4) L Plan Problems: (1) Abnormal LFTs Assessment & Plan: Patient identified to have elevated LFTs on admission. Complaints abdominal discomfort. No imaging currently performed. Abdominal ultrasound ordered. Trend labs IV fluids will monitor recommendations with evaluation of medications and serial abdominal exams. Exam is limited due to patient having limited ability to cooperate. Gallbladder demonstrates focal wall thickening and edema, gallbladder wall just over 4 mm thick. There is also small amount of pericholecystic fluid No gallstones. Sonographic Lewis's sign is negative. Common bile duct measures 5 mm in diameter. No intrahepatic biliary ductal dilatation. Liver demonstrates slightly increased echogenicity, no focal abnormality. Portal vein and hepatic veins are patent. Pancreas is unremarkable. Spleen is unremarkable. Left kidney measures 7.7 cm in length. Right kidney measures 8 cm length. Both kidneys demonstrate increased echogenicity There is no hydronephrosis. No focal abnormality . Abdominal aorta is partially obscured by bowel gas, visualized portions are non-aneurysmal . Right pleural effusion incidentally noted Impression: Somewhat limited exam, as described Increased renal echogenicity bilaterally, indicating medical renal disease. Incidental finding of bilateral renal cysts Mildly increased hepatic echogenicity, likely medical renal disease Negative for gallstones. There is focal gallbladder wall thickening and some pericholecystic fluid. This is probably due to edema of systemic causes but the possibility of acalculous acute cholecystitis should also be considered Right pleural effusion Note incompletely visualized distal abdominal aorta (2) Abdominal discomfort Assessment & Plan: No significant bowel distention. Discomfort on palpation asking for pain medications. No nausea vomiting fever chills. Okay for diet as tolerated we will follow with serial exams Thank allowing participation's care (3) Anemia (4) UTI (urinary tract infection) (5) Hypertension (6) ESRF (end stage renal failure) (7) Noncompliance (8) Head injury, acute (9) Cocaine abuse (10) Acute exacerbation of CHF (congestive heart failure) (11) Pain syndrome, chronic (12) Elevated troponin I level Blu Lema Feb 29, 2020 12:16
--- NOTE | 2020-02-29 12:38 | NUR ---
NURSE NOTES: patient's bp is elevated, patient refused PRN bp meds. Patient is agitated and yelling at RN. All safety measures provided. Patient is stable and asymptomatic, will continue to monitor.
--- NOTE | 2020-02-29 14:11 | Nephrology Progress Note ---
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 #troponemia #CHF #h/o polysubtance abuse, cocaine abuser #HTN #anemia - HD tomorrow - monitor hemoglobin level - cardiology eval - 2D Echo: EF30%, severe pulm HTN with PAP 90mmHg, global and regional wall motion abnormalities - amlodipine 10mg daily - add benazopril 20mg daily - increase 50 TID - continue lasix 60 IV BID for now - ceftriaxone for UTI -continue epo - monitor electrolytes time spent 65 min Subjective ROS Limited/Unobtainable: Yes Subjective hemoglobin stable s/p HD yesterday hypertensive benazopril added will increase hydralazine 2D Echo: EF30%, severe pulm HTN with PAP 90mmHg, global and regional wall motion abnormalities remains confused Objective Objective Last 24 Hour Vital Signs Date Time Temp Pulse Resp B/P (MAP) Pulse Ox O2 Delivery O2 Flow Rate FiO2 02/29/20 12:38 172/103 02/29/20 12:00 97.7 98 22 172/103 (126) 95 02/29/20 09:47 109 20 180/102 95 02/29/20 09:18 180/102 02/29/20 09:17 109 20 180/102 95 02/29/20 09:17 109 180/102 02/29/20 09:00 Nasal Cannula 2.0 02/29/20 08:00 97.4 109 22 180/102 (128) 95 02/29/20 05:56 155/98 02/29/20 05:55 155/98 02/29/20 04:00 98.1 96 19 155/97 (116) 95 02/29/20 00:00 97.5 105 20 158/98 (118) 95 02/28/20 21:54 154/94 02/28/20 21:00 Nasal Cannula 2.0 02/28/20 20:00 97.8 92 22 165/91 (115) 94 02/28/20 16:54 189/107 02/28/20 16:53 189/105 02/28/20 16:00 98.1 90 20 189/105 (133) 97 Intake and Output 02/28/20 02/29/20 19:00 07:00 Intake Total 480 ml 70 ml Output Total 2000 ml 320 ml Balance -1520 ml -250 ml Intake Oral 480 ml 70 ml Output Urine Total 320 ml Hemodialysis UF 2000 ml # Voids 2 1 Laboratory Tests 02/29/20 06:30: White Blood Count 6.8, Red Blood Count 2.98L, Hemoglobin 8.7L, Hematocrit 27.6L, Mean Corpuscular Volume 92, Mean Corpuscular Hemoglobin 29.1, Mean Corpuscular Hemoglobin Concent 31.4L, Red Cell Distribution Width 16.6H, Platelet Count 106L , Mean Platelet Volume 8.1, Neutrophils (%) (Auto) 65.5, Lymphocytes (%) (Auto) 14.7L, Monocytes (%) (Auto) 14.5H, Eosinophils (%) (Auto) 3.9H, Basophils (%) (A uto) 1.6, Sodium Level 144, Potassium Level 3.3L, Chloride Level 106, Carbon Dioxide Level 28, Anion Gap 10, Blood Urea Nitrogen 53H, Creatinine 3.6H, Estimat Glomerular Filtration Rate 12.4, Glucose Level 89, Calcium Level 8.2L, Phosphorus Level 3.8, Magnesium Level 1.6L Height (Feet): 5 Height (Inches): 4.00 Weight (Pounds): 160 Ace Munroe M.D. Feb 29, 2020 14:11
[2020-02-29] MEDS ORDERED: HydrALAZINE 25mg tab ORAL SCH (14:15)
[2020-02-29 16:00] VITALS: BP 168/99
[2020-02-29] MEDS ORDERED: LORazepam Inj 2mg/ml 1ml IM ONE (16:15)
--- NOTE | 2020-02-29 16:51 | NUR ---
Physical Therapy Notes; Checked on pt twice today. Not seen this am due to elevated BP. Unable to see in the pm due to agitation.
--- NOTE | 2020-02-29 19:24 | NUR ---
NURSE HAND-OFF: Important Events on Shift: juan r soft wrist restraints Patient Status: stable Diet: mech soft chopped Pending Orders: n/a Pending Results/Labs:n/a Pending MD notification:n/a Latest Vital Signs: Temperature 97.1 , Pulse 98 , B/P 172 /103 , Respiratory Rate 22 , O2 SAT 95 , Nasal Cannula, O2 Flow Rate 2.0 . Vital Sign Comment: n/a Latest Mcconnell Fall Score: 50 Fall Risk: High Risk Safety Measures: Call light Within Reach, Bed Alarm Zone 1, Side Rails Side Rails x3, Bed position Low and Locked. Fall Precautions: Yellow Socks Yellow Gown Door Sign Patient Fall Education Report given to James HERNANDEZ.
--- NOTE | 2020-02-29 19:59 | General Progress Note ---
Subjective Allergies: Coded Allergies: SULFA (SULFONAMIDE ANTIBIOTICS) (Verified Allergy, Unknown, 02/24/20) Subjective No acute events overnight per nursing. Patient much more awake today. Feels better. Hemoglobin stable. No signs of further bleeding. Still on 1-2 L nasal cannula. Further subjective history unable to be obtained due to ALOC Review of systems: Unable to be obtained due to ALOC Objective Last 24 Hour Vital Signs Date Time Temp Pulse Resp B/P (MAP) Pulse Ox O2 Delivery O2 Flow Rate FiO2 02/29/20 17:59 172/103 02/29/20 17:08 98 22 172/103 95 02/29/20 16:38 98 22 172/103 95 02/29/20 16:00 97.1 102 21 168/99 (122) 97 02/29/20 12:38 172/103 02/29/20 12:00 97.7 98 22 172/103 (126) 95 02/29/20 09:47 109 20 180/102 95 02/29/20 09:18 180/102 02/29/20 09:17 109 20 180/102 95 02/29/20 09:17 109 180/102 02/29/20 09:00 Nasal Cannula 2.0 02/29/20 08:00 97.4 109 22 180/102 (128) 95 02/29/20 05:56 155/98 02/29/20 05:55 155/98 02/29/20 04:00 98.1 96 19 155/97 (116) 95 02/29/20 00:00 97.5 105 20 158/98 (118) 95 02/28/20 21:54 154/94 02/28/20 21:00 Nasal Cannula 2.0 02/28/20 20:00 97.8 92 22 165/91 (115) 94 Intake and Output 02/28/20 02/29/20 19:00 07:00 Intake Total 480 ml 70 ml Output Total 2000 ml 320 ml Balance -1520 ml -250 ml Intake Oral 480 ml 70 ml Output Urine Total 320 ml Hemodialysis UF 2000 ml # Voids 2 1 Laboratory Tests 02/29/20 06:30: White Blood Count 6.8, Red Blood Count 2.98L, Hemoglobin 8.7L, Hematocrit 27.6L, Mean Corpuscular Volume 92, Mean Corpuscular Hemoglobin 29.1, Mean Corpuscular Hemoglobin Concent 31.4L, Red Cell Distribution Width 16.6H, Platelet Count 106L , Mean Platelet Volume 8.1, Neutrophils (%) (Auto) 65.5, Lymphocytes (%) (Auto) 14.7L, Monocytes (%) (Auto) 14.5H, Eosinophils (%) (Auto) 3.9H, Basophils (%) (Auto) 1.6, Sodium Level 144, Potassium Level 3.3L, Chloride Level 106, Carbon Dioxide Level 28, Anion Gap 10, Blood Urea Nitrogen 53H, Creatinine 3.6H, Estimat Glomerular Filtration Rate 12.4, Glucose Level 89, Calcium Level 8.2L, Phosphorus Level 3.8, Magnesium Level 1.6L Height (Feet): 5 Height (Inches): 4.00 Weight (Pounds): 160 Objective General: WDWN female in NAD, Altered. A&O x 1. Awake and alert. In restraints for safety, more calm today HEENT: Normocephalic cephalic atraumatic, pupils equal round reactive to light and accommodation, nares patent and no symmetrical, no tonsillar exudates, muco us membranes moist CV: Regular rate regular rhythm, no murmurs, rubs, or gallops. Previous right tunneled cath site with gauze over. No active bleeding. New HD line C/d/i. Pulm: Lungs clear to auscultation bilaterally. No wheezes, rhonchi, or rales GI: Soft, nontender, nondistended, bowel sounds present Neuro: CN 2-12 intact bilaterally, no focal signs. Moving all extremities Ext: No lower extremity edema bilaterally Skin: no rashes lesions or ulcers Msk: Joints symmetrical in upper extremity and lower extremity bilaterally, no joint swelling. Lymph: No lymphadenopathy in upper extremity and lower extremity Assessment/Plan Assessment/Plan: 74 yo F with PMHX CHF. CKD4, opioid abuser, chronic untraceable pain syndrome, admitted for CHF exacerbation and fluid overload # Acute systolic heart failure exacerbation. # s/p CKD5 # Now ESRD # Acute metabolic encephalopathy - improving - lasix 60mg BID - fluid restriction - plan for HD with Dr. Munroe, need coordiante care - No family or surrogate decision makers available at this time. Patient lacks capacity. Completely altered. Social work consulted. - At this time patient unable to make their own health care decisions. Procedure or treatment is necessary to alleviate severe pain and/or, if not performed, would lead to serious disability or . - patient unable to maker her own health care decision likely due to uremic encephalopathy I also believe HD is necessary to improved her current condition therefore we will proceed with permcath placement as renal replacement therapy is felt to prevent major disability - IR placed HD catheter. - Renal/heart healthy diet #Acute blood loss anemia 2/2 tunneled cath line removal > no further signs of bleeding - PRBC transfusion 02/26 with appropriate response - Patient still unable to consent and no surrogate decision maker available. Agree to proceed due to emergent nature. #Elevated alk phos #elevated GGT > Suspect could be due to hepatic congestion from heart failure - abdominal ultrasound: gallbladder thickening - > D/w Surgery. No suspicion for cholecystitis - Appreciate gen surgery recommendations: D/w Dr. Lema #Acute systolic heart failure exacerbation #Elevated troponin, suspect due to demand ischemia and ESRD. Appreciate cardiology input #essential hypertension - EF 20-25%. Global hypokinesis D/w Cardiology. Ischemia vs. history of cocaine use - asa 81 - Started on benazapril 20mg daily by Cardiology - HD per nephrology - appreciate cardiology recommendations #Urinary tract infection - blood cultures: NGTD - urine culture: mixed results - Rocephin (02/23 - ) # LE edema - US LE to r/o dvt: pending. D/w nursing again who will follow up # Opioid abuse #H/o cocaine abuse - avoid unnecessary narcotic FENPPX DVTPPX: Diet: renal Lines: tunneled line PT/OT: pending Code status: full per policy Dispo: SNF eventually Reason for Continued Hospitalization: ESRD, encephalopathy MIPS (Merit-based Incentive Payment System) Applicable CPT: 49365, 55975 CHECK ALL THAT ARE MET: [] Measure #5 (CHF): All ages. Prescribe BLACK/ARB upon discharge for patients with left ventricular systolic dysfunction. If not, the reason is clearly documented in the medical chart .[] Measure #8 (CHF): All ages. Prescribe a beta marlys upon discharge for patients with left ventricular systolic dysfunction. If not, the reason is clearly documented in the medical chart. [x] Measure #47: Advance care plan or surrogate decision maker documented in the medical record. [x] Measure #130 The provider has documented, updated, or reviewed the patients current medication list and has documented it in the patients note. [] Measure #374 (All): Send report to referring provider. [] Measure #407(Sepsis due to MSSA bacteremia): Age 18+ Patient treated with a beta-lactam antibiotic (Nafcillin, Oxacillin or Cefazolin) as definitive therapy. MEDICAL COMPLEXITYHigh complexity medical decision making (need 2/3 categories)Problem - need 4 points [x]Acute/new problem with new plan for workup (4 points, 1 max) [] Acute/new problem without additional workup (3 points, 1 max) [] Unstable chronic problem actively being managed (2 point each, 2 max) [] Stable chronic problem actively being managed (1 point each, 2 max) [] Self-limited/transient process (constipation, muscle ache, etc) (1 point each, 2 max) Data - need 4 points [x] Reviewed labs/imaging studies (1 points, 2 max) [x] Independent review of imaging (EKG, xrays, etc) (2 points, 2 max) [x] Discussed case with consult/other MD/RN (2 points, 2 max) High Risk - qualify if have one of the following: [x] Severe exacerbation of acute problem, acute mental status change, IV narcotics, monitoring drug levels (vancomycin, INR, tacrolimus etc) I spent 40 minutes on this patient's case, and 22 mins was dedicated to counseling and/or care coordination. Discussed with nephro, Bedside RN Time of note may not reflect time of encounter Silvestre Cruz D.O. Feb 29, 2020 19:59
[2020-02-29 20:00] VITALS: BP 161/109
[2020-02-29] MEDS: cefTRIAXone 1 GM in D5W 55 ML IVPB SCH (21:09)
[2020-02-29] MEDS: HydrALAZINE 50mg tab ORAL SCH (21:12)
--- NOTE | 2020-02-29 22:04 | Neurology Progress Note ---
Interim History Interim History ROS Limited/Unobtainable: Yes Interim History pain level remains the same Objective Physical Exam Last Vital Signs Date Time Temp Pulse Resp B/P (MAP) Pulse Ox O2 Delivery O2 Flow Rate FiO2 02/29/20 21:12 161/101 02/29/20 17:08 98 22 95 02/29/20 16:00 97.1 02/29/20 09:00 Nasal Cannula 2.0 Laboratory Tests Test 02/29/20 06:30 White Blood Count 6.8 K/UL (4.8-10.8) Red Blood Count 2.98 M/UL (4.20-5.40) L Hemoglobin 8.7 G/DL (12.0-16.0) L Hematocrit 27.6 % (37.0-47.0) L Mean Corpuscular Volume 92 FL (80-99) Mean Corpuscular Hemoglobin 29.1 PG (27.0-31.0) Mean Corpuscular Hemoglobin Concent 31.4 G/DL (32.0-36.0) L Red Cell Distribution Width 16.6 % (11.6-14.8) H Platelet Count 106 K/UL (150-450) L Mean Platelet Volume 8.1 FL (6.5-10.1) Neutrophils (%) (Auto) 65.5 % (45.0-75.0) Lymphocytes (%) (Auto) 14.7 % (20.0-45.0) L Monocytes (%) (Auto) 14.5 % (1.0-10.0) H Eosinophils (%) (Auto) 3.9 % (0.0-3.0) H Basophils (%) (Auto) 1.6 % (0.0-2.0) Sodium Level 144 MMOL/L (136-145) Potassium Level 3.3 MMOL/L (3.5-5.1) L Chloride Level 106 MMOL/L (98-107) Carbon Dioxide Level 28 MMOL/L (21-32) Anion Gap 10 mmol/L (5-15) Blood Urea Nitrogen 53 mg/dL (7-18) H Creatinine 3.6 MG/DL (0.55-1.30) H Estimat Glomerular Filtration Rate 12.4 mL/min (>60) Glucose Level 89 MG/DL (74-106) Calcium Level 8.2 MG/DL (8.5-10.1) L Phosphorus Level 3.8 MG/DL (2.5-4.9) Magnesium Level 1.6 MG/DL (1.8-2.4) L Head: normocophalic Neck: no rigidity EENT: benign Neurologic Exam Mental Status: awake, alert Cranial Nerve II: visual juarez Cranial Nerves III, IV, : PERRLA, EOMI Cranial Nerve V: normal facial sensations Objective ao x 2 flapping noted tangential non focal Impression/Recommendations Problems: (1) Anemia (2) UTI (urinary tract infection) (3) Hypertension (4) ESRF (end stage renal failure) (5) Noncompliance (6) Head injury, acute (7) Cocaine abuse (8) Acute exacerbation of CHF (congestive heart failure) (9) Pain syndrome, chronic (10) Elevated troponin I level (11) Abdominal discomfort (12) Abnormal LFTs Diagnostic Impression acute encephalopathy, likely uremic agitation tele seroquel 25 mg bid standing HD per nephro PT OT as able no opioids Hay Johnson MD Feb 29, 2020 22:04
--- NOTE | 2020-02-29 23:09 | Cardiology Progress Note ---
Subjective DATE OF SERVICE: Feb 29, 2020 No new complaints. BP parameters remain elevated. Monitor: sinus rhythm/sinus tachycardia s/p HD/UF 02/27/20 Remains confused 2D Echo: EF30%, severe pulm HTN with PAP 90mmHg, global and regional wall motion abnormalities Objective Last 24 Hour Vital Signs Date Time Temp Pulse Resp B/P (MAP) Pulse Ox O2 Delivery O2 Flow Rate FiO2 02/29/20 21:12 161/101 02/29/20 21:00 Nasal Cannula 2.0 02/29/20 20:00 97.9 107 20 161/109 (126) 96 02/29/20 17:59 172/103 02/29/20 17:08 98 22 172/103 95 02/29/20 16:38 98 22 172/103 95 02/29/20 16:00 97.1 102 21 168/99 (122) 97 02/29/20 12:38 172/103 02/29/20 12:00 97.7 98 22 172/103 (126) 95 02/29/20 09:47 109 20 180/102 95 02/29/20 09:18 180/102 02/29/20 09:17 109 20 180/102 95 02/29/20 09:17 109 180/102 02/29/20 09:00 Nasal Cannula 2.0 02/29/20 08:00 97.4 109 22 180/102 (128) 95 02/29/20 05:56 155/98 02/29/20 05:55 155/98 02/29/20 04:00 98.1 96 19 155/97 (116) 95 02/29/20 00:00 97.5 105 20 158/98 (118) 95 ROS: unchanged from my assessment of 02/25/20 HEENT: normal ENT inspection RHYTHM: NSR, ST LUNGS: diminished breath sounds, rales bilaterally - few, other - Right chest wall cath site with no active bleeding CARDIAC: normal rate, regular rhythm, normal S1 and S2, systolic murmur - 2/6 systolic murmur at LLSB, gallop/S4 ABDOMEN: normal bowel sounds, non tender, soft, no organomegaly EXTREMITIES: normal range of motion, non-tender, +1 edema Laboratory Tests Test 02/29/20 06:30 White Blood Count 6.8 K/UL (4.8-10.8) Red Blood Count 2.98 M/UL (4.20-5.40) L Hemoglobin 8.7 G/DL (12.0-16.0) L Hematocrit 27.6 % (37.0-47.0) L Mean Corpuscular Volume 92 FL (80-99) Mean Corpuscular Hemoglobin 29.1 PG (27.0-31.0) Mean Corpuscular Hemoglobin Concent 31.4 G/DL (32.0-36.0) L Red Cell Distribution Width 16.6 % (11.6-14.8) H Platelet Count 106 K/UL (150-450) L Mean Platelet Volume 8.1 FL (6.5-10.1) Neutrophils (%) (Auto) 65.5 % (45.0-75.0) Lymphocytes (%) (Auto) 14.7 % (20.0-45.0) L Monocytes (%) (Auto) 14.5 % (1.0-10.0) H Eosinophils (%) (Auto) 3.9 % (0.0-3.0) H Basophils (%) (Auto) 1.6 % (0.0-2.0) Sodium Level 144 MMOL/L (136-145) Potassium Level 3.3 MMOL/L (3.5-5.1) L Chloride Level 106 MMOL/L (98-107) Carbon Dioxide Level 28 MMOL/L (21-32) Anion Gap 10 mmol/L (5-15) Blood Urea Nitrogen 53 mg/dL (7-18) H Creatinine 3.6 MG/DL (0.55-1.30) H Estimat Glomerular Filtration Rate 12.4 mL/min (>60) Glucose Level 89 MG/DL (74-106) Calcium Level 8.2 MG/DL (8.5-10.1) L Phosphorus Level 3.8 MG/DL (2.5-4.9) Magnesium Level 1.6 MG/DL (1.8-2.4) L Assessment/Plan Assessment/Plan Metabolic encephalopathy CKD5 now with presumed ESRD Acute myocardial ischemia Ischemic and cocaine cardiomyopathy Severe pulmonary hypertension Acute on chronic systolic CHF Hypertensive urgency Anemia of CKD HD/UF Nitrates PRBC tx Anti-plt therapy Maximize antiHTN and anti-failure regimen; start and titrate ACEi since diagnosed with ESRD Epo/Fe++; consider PRBC transfusion Nikia,Sourav MD Feb 29, 2020 23:09
--- NOTE | 2020-02-29 23:30 | NUR ---
NURSE NOTES: RECEIVED PATIENT FROM MARY MULLINS. PATIENT IS SLEEPING, AROUSABLE, ON ROOM AIR, NO ACUTE DISTRESS NOTED. PIV INTACT AND PATENT. PERMA CATH ON RIGHT UPPER CHEST, DRESSING DRY AND INTACT. PATIENT ON BILATERAL RESTRAINTS, NO REDNESS OR SWELLING, PULSES PRESENT. BED IS LOCKED AND LOW, BED ALARMS NOTED, SIDE RAILS UPX2 AND CALL LIGHT IS WITHIN REACH. WILL CONTINUE TO MONITOR.
[2020-03-01] VITALS (7 sets, daily range): BP systolic 112–183; BP diastolic 72–110
[2020-03-01] MEDS: LORazepam Inj 2mg/ml 1ml IV PRN (00:14)
[2020-03-01] MEDS: HydrALAZINE 25mg tab ORAL PRN ×2 (01:09→16:20)
[2020-03-01] MEDS: Heparin 5000 units/ml inj SUBQ SCH ×3 (05:46→21:46)
[2020-03-01] MEDS: HydrALAZINE 50mg tab ORAL SCH ×3 (05:47→21:57)
[2020-03-01] MEDS: Nitroglycerin 2% oint pkt TOPIC SCH ×3 (05:47→18:00)
--- NOTE | 2020-03-01 07:50 | NUR ---
NURSE NOTES: Report received from [facility] RN, rounds made. Patient sleeping. Bilateral wrist restraints on. Respirations even/unlabored on O2 2LNC. RUC permacath in place. Plans for HD today with [facility], will confirm time. Will provide oral mouth care/skin care. Patient remains safe. Bed in lowest position,will continue to monitor. Addendum: 03/01/20 at 0833 by Josephine Whalen RN Right thumb saline lock in place.
[2020-03-01] MEDS: Aspirin Baby 81mg ORAL SCH (09:00)
--- NOTE | 2020-03-01 09:30 | NUR ---
NURSE NOTES: Followed up with [facility] (David HERNANDEZ, dialysis nurse), plans for HD this afternoon.
--- NOTE | 2020-03-01 09:52 | NUR ---
P.T Note: P.T attempted however unsuccessful due to pt was being agitated and uncooperative.
--- NOTE | 2020-03-01 10:06 | Nephrology Progress Note ---
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 #troponemia #CHF #h/o polysubtance abuse, cocaine abuser #HTN #anemia - HD today - monitor hemoglobin level - cardiology eval - 2D Echo: EF30%, severe pulm HTN with PAP 90mmHg, global and regional wall motion abnormalities - amlodipine 10mg daily - add benazopril 20mg daily - increase 50 TID - continue lasix 60 IV BID for now - ceftriaxone for UTI -continue epo - monitor electrolytes time spent 65 min Subjective ROS Limited/Unobtainable: Yes Subjective hemoglobin stable s/p HD yesterday hypertensive benazopril added will increase hydralazine 2D Echo: EF30%, severe pulm HTN with PAP 90mmHg, global and regional wall motion abnormalities remains confused Objective Objective Last 24 Hour Vital Signs Date Time Temp Pulse Resp B/P (MAP) Pulse Ox O2 Delivery O2 Flow Rate FiO2 03/01/20 05:47 167/109 03/01/20 05:47 167/109 03/01/20 04:00 97.0 103 20 167/109 (128) 98 03/01/20 01:09 175/113 03/01/20 00:14 107 20 161/101 96 03/01/20 00:00 96.2 110 20 166/110 (128) 92 02/29/20 21:12 161/101 02/29/20 21:00 Nasal Cannula 2.0 02/29/20 20:00 97.9 107 20 161/109 (126) 96 02/29/20 17:59 172/103 02/29/20 17:08 98 22 172/103 95 02/29/20 16:38 98 22 172/103 95 02/29/20 16:00 97.1 102 21 168/99 (122) 97 02/29/20 12:38 172/103 02/29/20 12:00 97.7 98 22 172/103 (126) 95 Intake and Output 02/29/20 03/01/20 19:00 07:00 Intake Total 240 ml Balance 240 ml Intake Oral 240 ml # Voids 4 Height (Feet): 5 Height (Inches): 4.00 Weight (Pounds): 160 Ace Munroe M.D. Mar 01, 2020 10:06
--- NOTE | 2020-03-01 10:25 | NUR ---
RD ASSESSMENT & RECOMMENDATIONS SEE CARE ACTIVITY FOR COMPLETE ASSESSMENT DAILY ESTIMATED NEEDS: Needs based on ESRD w/ HD, 53kg 25-30 kcals/kg 9602-2778 total kcals 1.2-1.8 g protein/kg 64-95 g total protein Fluids per MD NUTRITION DIAGNOSIS: Increased kcal/prot needs R/T renal dysfunction as evidenced by s/p permacath placement (02/26), on HD. CURRENT DIET: renal/ mech soft chopped PO DIET RECOMMENDATIONS: RENAL/ texture per NETWORK SECURITY ANALYST ADDITIONAL RECOMMENDATIONS: * Daily calibrated bedscale wt * Nepro BID w variable intake (425kcal/19g prot each) * Nephrovite x 1 * Replete lytes if low (low K and mag)
--- NOTE | 2020-03-01 11:09 | NUR ---
HAND-OFF: Report given to MARY Burton.
--- NOTE | 2020-03-01 11:53 | NUR ---
*-*DISCHARGE PLANNING*-* PATIENT HAS BEEN REFERRED TO: [facility] [place] P: [phone] ROOM# [id number]
--- NOTE | 2020-03-01 13:55 | NUR ---
NURSE NOTES: Covid Rapid obtained and sent to lab at this time.
--- NOTE | 2020-03-01 15:54 | NUR ---
NURSE NOTES: Mallika from [facility] called, rapid COVID is negative.
--- NOTE | 2020-03-01 16:26 | NUR ---
CASE MANAGEMENT:REVIEW SI;ENCEPHALOPATHY. ANEMIA. ESRD. 99.7 123 20 183/101 96% 2L NC NO LABS AVAILABLE IS;HYDRALAZINE PO ROCEPHIN IV LOTENSIN PO NORVASC PO LASIX IV BID HEPARIN SQ MED SURG STATUS DCP;FROM HOME DC PLANNING TO SNF ACCEPTED AT [facility]
--- NOTE | 2020-03-01 16:39 | NUR ---
NURSE NOTES: BP 183/108 HR 95, rechecked 181/101 HR 92.Attempted to medicate patient with Hydralazine PO PRN for BP >160, patient refused. Ximena BRIGGS notified, instructed to administer scheduled Lasix 60 mg IVP, notified [facility] (Dialysis nurse, David RN) of above.
--- NOTE | 2020-03-01 16:58 | NUR ---
*-*DISCHARGE PLANNING*-* PATIENT HAS BEEN REFERRED TO: [facility] P: [phone] S/W YAKOV, NO CHAIR TIMES AVAILABLE. [facility] P: [phone] S/W PHILIP, NO CHAIR TIME AVAILABLE. ~~~~~~~~ CASE YASMINE AND HAS BEEN NOTIFIED~~~~~~~~~~
--- NOTE | 2020-03-01 17:37 | Surgery Progress Note ---
Surgery Progress Note Subjective Symptoms: improved, tolerating diet, passing flatus, BM, pain decreased Objective Last 24 Hour Vital Signs Date Time Temp Pulse Resp B/P (MAP) Pulse Ox O2 Delivery O2 Flow Rate FiO2 03/01/20 16:15 92 181/101 (127) 03/01/20 16:07 98.6 95 20 183/108 (133) 97 03/01/20 12:00 99.7 123 20 116/75 (89) 96 03/01/20 05:47 167/109 03/01/20 05:47 167/109 03/01/20 04:00 97.0 103 20 167/109 (128) 98 03/01/20 01:09 175/113 03/01/20 00:14 107 20 161/101 96 03/01/20 00:00 96.2 110 20 166/110 (128) 92 02/29/20 21:12 161/101 02/29/20 21:00 Nasal Cannula 2.0 02/29/20 20:00 97.9 107 20 161/109 (126) 96 02/29/20 17:59 172/103 I&O Intake and Output 02/29/20 03/01/20 19:00 07:00 Intake Total 240 ml Balance 240 ml Intake Oral 240 ml # Voids 4 Dressing: saturated Cardiovascular: RSR Respiratory: decreased breath sounds Abdomen: non-tender, present bowel sounds Extremities: no tenderness, no cyanosis Plan Problems: (1) Abnormal LFTs Assessment & Plan: Patient identified to have elevated LFTs on admission. Complaints abdominal discomfort. No imaging currently performed. Abdominal ultrasound ordered. Trend labs IV fluids will monitor recommendations with evaluation of medications and serial abdominal exams. Exam is limited due to patient having limited ability to cooperate. Gallbladder demonstrates focal wall thickening and edema, gallbladder wall just over 4 mm thick. There is also small amount of pericholecystic fluid No gallstones. Sonographic Lewis's sign is negative. Common bile duct measures 5 mm in diameter. No intrahepatic biliary ductal dilatation. Liver demonstrates slightly increased echogenicity, no focal abnormality. Portal vein and hepatic veins are patent. Pancreas is unremarkable. Spleen is unremarkable. Left kidney measures 7.7 cm in length. Right kidney measures 8 cm length. Both kidneys demonstrate increased echogenicity There is no hydronephrosis. No focal abnormality . Abdominal aorta is partially obscured by bowel gas, visualized portions are non-aneurysmal . Right pleural effusion incidentally noted Impression: Somewhat limited exam, as described Increased renal echogenicity bilaterally, indicating medical renal disease. Incidental finding of bilateral renal cysts Mildly increased hepatic echogenicity, likely medical renal disease Negative for gallstones. There is focal gallbladder wall thickening and some pericholecystic fluid. This is probably due to edema of systemic causes but the possibility of acalculous acute cholecystitis should also be considered Right pleural effusion Note incompletely visualized distal abdominal aorta (2) Abdominal discomfort Assessment & Plan: No significant bowel distention. Discomfort on palpation asking for pain medications. No nausea vomiting fever chills. Okay for diet as tolerated we will follow with serial exams Thank allowing participation's care (3) Anemia (4) UTI (urinary tract infection) (5) Hypertension (6) ESRF (end stage renal failure) (7) Noncompliance (8) Head injury, acute (9) Cocaine abuse (10) Acute exacerbation of CHF (congestive heart failure) (11) Pain syndrome, chronic (12) Elevated troponin I level Blu Lema Mar 01, 2020 17:37
--- NOTE | 2020-03-01 19:50 | NUR ---
NURSE HAND-OFF: Important Events on Shift:COVID rapid done at 1340, Dialysis at 1830 with [facility], BP 183/108, Lasix 60 mg IVP given (due to patient refused Hydralazine PO) BP rechecked 167/87, Patient Status: stable Diet: Renal Mechanical Soft (Total Feed, Crush Meds) Pending Orders: none Pending Results/Labs:none Pending MD notification:none Latest Vital Signs: Temperature 98.6 , Pulse 90 , B/P 167 /87 , Respiratory Rate 20 , O2 SAT 97 , Nasal Cannula, O2 Flow Rate 2.0 . Vital Sign Comment: monitor BP Latest Mcconnell Fall Score: 50 Fall Risk: High Risk Safety Measures: Call light Within Reach, Bed Alarm Zone 1, Side Rails Side Rails x3, Bed position Low and Locked. Fall Precautions: Yellow Socks Yellow Gown Door Sign Patient Fall Education Report given to Anisa RN.
--- NOTE | 2020-03-01 19:55 | Neurology Progress Note ---
Interim History Interim History ROS Limited/Unobtainable: Yes Interim History pain better controlled Objective Physical Exam Last Vital Signs Date Time Temp Pulse Resp B/P (MAP) Pulse Ox O2 Delivery O2 Flow Rate FiO2 03/01/20 18:30 90 167/87 (113) 03/01/20 16:07 98.6 20 97 03/01/20 09:00 Nasal Cannula 2.0 Head: normocophalic Neck: no rigidity EENT: benign Neurologic Exam Mental Status: awake, alert Cranial Nerve II: visual juarez Cranial Nerves III, IV, : PERRLA, EOMI Cranial Nerve V: normal facial sensations Objective ao x 2 flapping noted tangential non focal Impression/Recommendations Problems: (1) Anemia (2) UTI (urinary tract infection) (3) Hypertension (4) ESRF (end stage renal failure) (5) Noncompliance (6) Head injury, acute (7) Cocaine abuse (8) Acute exacerbation of CHF (congestive heart failure) (9) Pain syndrome, chronic (10) Elevated troponin I level (11) Abdominal discomfort (12) Abnormal LFTs Diagnostic Impression acute encephalopathy, likely uremic agitation tele seroquel 25 mg bid standing HD per nephro PT OT as able no opioids Hay Johnson MD Mar 01, 2020 19:55
--- NOTE | 2020-03-01 19:58 | General Progress Note ---
Subjective Date patient seen: Mar 01, 2020 Allergies: Coded Allergies: SULFA (SULFONAMIDE ANTIBIOTICS) (Verified Allergy, Unknown, 02/24/20) Subjective No acute events overnight per nursing. Patient much more awake today. Feeling better. More conversant but still altered. Does not answer appropriately. No signs of further bleeding. Still on 1-2 L nasal cannula. Further subjective history unable to be obtained due to ALOC Review of systems: Unable to be obtained due to ALOC Objective Last 24 Hour Vital Signs Date Time Temp Pulse Resp B/P (MAP) Pulse Ox O2 Delivery O2 Flow Rate FiO2 03/01/20 18:30 90 167/87 (113) 03/01/20 16:15 92 181/101 (127) 03/01/20 16:07 98.6 95 20 183/108 (133) 97 03/01/20 12:00 99.7 123 20 116/75 (89) 96 03/01/20 09:00 Nasal Cannula 2.0 03/01/20 05:47 167/109 03/01/20 05:47 167/109 03/01/20 04:00 97.0 103 20 167/109 (128) 98 03/01/20 01:09 175/113 03/01/20 00:14 107 20 161/101 96 03/01/20 00:00 96.2 110 20 166/110 (128) 92 02/29/20 21:12 161/101 02/29/20 21:00 Nasal Cannula 2.0 02/29/20 20:00 97.9 107 20 161/109 (126) 96 Intake and Output 02/29/20 03/01/20 19:00 07:00 Intake Total 240 ml Balance 240 ml Intake Oral 240 ml # Voids 4 Height (Feet): 5 Height (Inches): 4.00 Weight (Pounds): 160 Objective General: WDWN female in NAD, Altered. A&O x 1-2. Awake and alert. In restraints for safety, more calm every dy HEENT: Normocephalic cephalic atraumatic, pupils equal round reactive to light and accommodation, nares patent and no symmetrical, no tonsillar exudates, mucous membranes moist CV: Regular rate regular rhythm, no murmurs, rubs, or gallops. Previous right tunneled cath site with gauze over. No active bleeding. New HD line C/d/i. Pulm: Lungs clear to auscultation bilaterally. No wheezes, rhonchi, or rales GI: Soft, nontender, nondistended, bowel sounds present Neuro: CN 2-12 intact bilaterally, no focal signs. Moving all extremities Ext: No lower extremity edema bilaterally Skin: no rashes lesions or ulcers Msk: Joints symmetrical in upper extremity and lower extremity bilaterally, no joint swelling. Lymph: No lymphadenopathy in upper extremity and lower extremity Assessment/Plan Assessment/Plan: 74 yo F with PMHX CHF. CKD4, opioid abuser, chronic untraceable pain syndrome, admitted for CHF exacerbation and fluid overload # Acute systolic heart failure exacerbation. # s/p CKD5 # Now ESRD # Acute metabolic encephalopathy - improving - lasix 60mg BID - fluid restriction - plan for HD with Dr. Munroe, need coordiante care - No family or surrogate decision makers available at this time. Patient lacks capacity. Completely altered. Social work consulted. - At this time patient unable to make their own health care decisions. Procedure or treatment is necessary to alleviate severe pain and/or, if not performed, would lead to serious disability or . - patient unable to maker her own health care decision likely due to uremic encephalopathy I also believe HD is necessary to improved her current condition therefore we will proceed with permcath placement as renal replacement therapy is felt to prevent major disability - IR placed HD catheter. - Renal/heart healthy diet #Acute blood loss anemia 2/2 tunneled cath line removal > no further signs of bleeding - PRBC transfusion 02/26 with appropriate response - Patient still unable to consent and no surrogate decision maker available. Agree to proceed due to emergent nature. #Elevated alk phos #elevated GGT > Suspect could be due to hepatic congestion from heart failure - abdominal ultrasound: gallbladder thickening - > D/w Surgery. No suspicion for cholecystitis - Appreciate gen surgery recommendations: D/w Dr. Lema #Acute systolic heart failure exacerbation #Elevated troponin, suspect due to demand ischemia and ESRD. Appreciate cardio logy input #essential hypertension - EF 20-25%. Global hypokinesis D/w Cardiology. Ischemia vs. history of cocaine use - asa 81 - Increased benazepril to 40mg Po daily by Cardiology - HD per nephrology - appreciate cardiology recommendations #Urinary tract infection - blood cultures: NGTD - urine culture: mixed results - Rocephin (02/23 - ) # LE edema - US LE to r/o dvt: pending. D/w nursing again who will follow up # Opioid abuse #H/o cocaine abuse - avoid unnecessary narcotic FENPPX DVTPPX: Diet: renal Lines: tunneled line PT/OT: pending Code status: full per policy Dispo: SNF eventually Reason for Continued Hospitalization: ESRD, encephalopathy MIPS (Merit-based Incentive Payment System) Applicable CPT: 69068, 63256 CHECK ALL THAT ARE MET: [] Measure #5 (CHF): All ages. Prescribe BLAKC/ARB upon discharge for patients with left ventricular systolic dysfunction. If not, the reason is clearly documented in the medical chart .[] Measure #8 (CHF): All ages. Prescribe a beta marlys upon discharge for p atients with left ventricular systolic dysfunction. If not, the reason is clearly documented in the medical chart. [x] Measure #47: Advance care plan or surrogate decision maker documented in the medical record. [x] Measure #130 The provider has documented, updated, or reviewed the patients current medication list and has documented it in the patients note. [] Measure #374 (All): Send report to referring provider. [] Measure #407(Sepsis due to MSSA bacteremia): Age 18+ Patient treated with a beta-lactam antibiotic (Nafcillin, Oxacillin or Cefazolin) as definitive therapy. MEDICAL COMPLEXITYHigh complexity medical decision making (need 2/3 categories)Problem - need 4 points [x]Acute/new problem with new plan for workup (4 points, 1 max) [] Acute/new problem without additional workup (3 points, 1 max) [] Unstable chronic problem actively being managed (2 point each, 2 max) [] Stable chronic problem actively being managed (1 point each, 2 max) [] Self-limited/transient process (constipation, muscle ache, etc) (1 point each, 2 max) Data - need 4 points [x] Reviewed labs/imaging studies (1 points, 2 max) [x] Independent review of imaging (EKG, xrays, etc) (2 points, 2 max) [x] Discussed case with consult/other MD/RN (2 points, 2 max) High Risk - qualify if have one of the following: [x] Severe exacerbation of acute problem, acute mental status change, IV narco tics, monitoring drug levels (vancomycin, INR, tacrolimus etc) I spent 36 minutes on this patient's case, and 20 mins was dedicated to counseling and/or care coordination. Discussed with nephro, Bedside RN Time of note may not reflect time of encounter Silvestre Cruz D.O. Mar 01, 2020 19:58
[2020-03-01] MEDS: cefTRIAXone 1 GM in D5W 55 ML IVPB SCH (21:45)
[2020-03-01] MEDS: Epoetin Alfa-EPBX(ESRD on dialysis)4000 units/ml vial SUBQ SCH (21:45)
--- NOTE | 2020-03-01 23:42 | Cardiology Progress Note ---
Subjective DATE OF SERVICE: Mar 01, 2020 No new complaints. BP parameters remain elevated despite on-going uptitration of antiHTN meds. Monitor: sinus rhythm/sinus tachycardia s/p HD/UF 02/29/20 Remains confused but much more alert. 2D Echo: EF30%, severe pulm HTN with PAP 90mmHg, global and regional wall motion abnormalities Objective Last 24 Hour Vital Signs Date Time Temp Pulse Resp B/P (MAP) Pulse Ox O2 Delivery O2 Flow Rate FiO2 03/01/20 21:57 178/111 03/01/20 20:00 99.0 77 18 112/72 (85) 98 03/01/20 18:30 90 167/87 (113) 03/01/20 16:15 92 181/101 (127) 03/01/20 16:07 98.6 95 20 183/108 (133) 97 03/01/20 12:00 99.7 123 20 116/75 (89) 96 03/01/20 09:00 Nasal Cannula 2.0 03/01/20 05:47 167/109 03/01/20 05:47 167/109 03/01/20 04:00 97.0 103 20 167/109 (128) 98 03/01/20 01:09 175/113 03/01/20 00:14 107 20 161/101 96 03/01/20 00:00 96.2 110 20 166/110 (128) 92 ROS: unchanged from my assessment of 02/25/20 HEENT: normal ENT inspection RHYTHM: NSR, ST LUNGS: diminished breath sounds, rales bilaterally - few, other - Right chest wall cath site with no active bleeding CARDIAC: normal rate, regular rhythm, normal S1 and S2, systolic murmur - 2/6 systolic murmur at LLSB, gallop/S4 ABDOMEN: normal bowel sounds, non tender, soft, no organomegaly EXTREMITIES: normal range of motion, non-tender, +1 edema Microbiology Date/Time Source Procedure Growth Status 03/01/20 13:40 Nasopharynx SARS-CoV-2 RdRp Gene Assay - Final Complete Assessment/Plan Assessment/Plan Metabolic encephalopathy CKD5 now with presumed ESRD Acute myocardial ischemia/possible NSTE myocardial infarction Ischemic and cocaine cardiomyopathy Severe pulmonary hypertension Acute on chronic systolic CHF Hypertensive urgency Anemia of CKD Hypomagnesemia HD/UF Nitrates PRBC tx Anti-plt therapy Maximizing antiHTN and anti-failure regimen further, including ACEi since diagnosed with ESRD Epo/Fe++; consider PRBC transfusion Magnesium replacement per renal Sourav Montejo MD Mar 01, 2020 23:42
[2020-03-02] VITALS: BP 169/84
[2020-03-02 04:00] VITALS: BP 189/104
[2020-03-02] MEDS: Heparin 5000 units/ml inj SUBQ SCH ×3 (06:00→21:56)
[2020-03-02] MEDS: HydrALAZINE 50mg tab ORAL SCH ×3 (07:03→21:53)
[2020-03-02] MEDS: Nitroglycerin 2% oint pkt TOPIC SCH ×3 (07:03→17:34)
[2020-03-02 08:00] VITALS: BP 152/93
--- NOTE | 2020-03-02 08:00 | NUR ---
NURSE NOTES: Report received from Anisa. Patient stable aao X2. Agitated, hard of hearing. Patient was assisted to bathroom, to chair and back to bed. Abdomen soft and non tender. Patient refused restraints. RN Educated patient on pressing the call light for assistance. Patient fell asleep. Call light within reach. Bed in lowest position and locked. Plan of care communicated. Will continue to monitor.
--- NOTE | 2020-03-02 08:09 | NUR ---
NURSE HAND-OFF: Important Events on Shift: Hemodialysis done, 2L output. Still on bilateral soft wrist restraints. no redness or swelling, pulses present. Blood pressure remains elevated. Patient Status: Stable Diet: Regular Pending Orders: N/A Pending Results/Labs: CBC, CMP Pending MD notification: N/A Latest Vital Signs: Temperature 97.4 , Pulse 89 , B/P 189 /104 , Respiratory Rate 18 , O2 SAT 94 , Nasal Cannula, O2 Flow Rate 2.0 . Vital Sign Comment: Marylin Mcconnell Fall Score: 50 Fall Risk: High Risk Safety Measures: Call light Within Reach, Bed Alarm Zone 1, Side Rails Side Rails x3, Bed position Low and Locked. Fall Precautions: Yellow Socks Yellow Gown Door Sign Patient Fall Education Report given to MARY Mcneal
[2020-03-02 08:19] LABS: CALCIUM 8.2 MG/DL (8.5-10.1); CREATININE 3.1 MG/DL (0.55-1.30); PHOSPHORUS 3.6 MG/DL (2.5-4.9); POTASSIUM 3.7 MMOL/L (3.5-5.1)
--- NOTE | 2020-03-02 08:57 | Nephrology Progress Note ---
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 #troponemia #CHF #h/o polysubtance abuse, cocaine abuser #HTN #anemia - HD today - monitor hemoglobin level - cardiology eval - 2D Echo: EF30%, severe pulm HTN with PAP 90mmHg, global and regional wall motion abnormalities - amlodipine 10mg daily - add benazopril 20mg daily - increase 50 TID - continue lasix 60 IV BID for now - ceftriaxone for UTI -continue epo - monitor electrolytes time spent 65 min Subjective ROS Limited/Unobtainable: Yes Subjective hemoglobin stable s/p HD yesterday 2D Echo: EF30%, severe pulm HTN with PAP 90mmHg, global and regional wall motion abnormalities remains confused Objective Objective Last 24 Hour Vital Signs Date Time Temp Pulse Resp B/P (MAP) Pulse Ox O2 Delivery O2 Flow Rate FiO2 03/02/20 07:03 189/104 03/02/20 07:03 189/104 03/02/20 04:00 97.4 89 18 189/104 (132) 94 03/02/20 00:00 98.4 92 18 169/84 (112) 96 03/01/20 21:57 178/111 03/01/20 21:00 Nasal Cannula 2.0 03/01/20 20:00 99.0 77 18 112/72 (85) 98 03/01/20 18:30 90 167/87 (113) 03/01/20 16:15 92 181/101 (127) 03/01/20 16:07 98.6 95 20 183/108 (133) 97 03/01/20 12:00 99.7 123 20 116/75 (89) 96 03/01/20 09:00 Nasal Cannula 2.0 Intake and Output 03/01/20 03/02/20 19:00 07:00 Intake Total 640 ml 360 ml Output Total 600 ml 2000 ml Balance 40 ml -1640 ml Intake Oral 640 ml Other 360 ml Output Urine Total 600 ml Hemodialysis UF 2000 ml # Voids 3 1 Laboratory Tests 03/02/20 07:06: Sodium Level 141, Potassium Level 3.7, Chloride Level 104, Carbon Dioxide Level 31, Anion Gap 6, Blood Urea Nitrogen 32H, Creatinine 3.1H, Estimat Glomerular Filtration Rate 14.7, Glucose Level 86, Calcium Level 8.2L, Phosphorus Level 3.6, Magnesium Level 1.7L Height (Feet): 5 Height (Inches): 4.00 Weight (Pounds): 160 Ace Munroe M.D. Mar 02, 2020 08:57
[2020-03-02] MEDS ORDERED: HYDROcodone/Acetamin 5/325 tab ORAL PRN (09:00)
[2020-03-02] MEDS: Aspirin Baby 81mg ORAL SCH (10:06)
--- NOTE | 2020-03-02 10:12 | NUR ---
MARINE STEAMFITTER NOTE S/W YAKOV AT [facility]. PER YAKOV, THERE ARE CURRENTLY NO CHAIR TIMES AVAILABLE. DR RAY INFORMED. PER , HE IS WORKING WITH HD CENTER TO ACCOMMODATE PATIENT.
--- NOTE | 2020-03-02 11:59 | NUR ---
SECTION MAINTAINER NOTES SPOKE WITH YAKOV FROM [facility], UNABLE TO ACCEPT THIS PT, THERE IS NO CHAIR TIME AVAILABLE. PLACED A CALL TO [facility], THEY ARE UNABLE TO ACCEPT THIS PT. NO CHAIR TIME AVAILABLE. SPOKE WITH DR. RAY HE IS WORKING ON A CHAIR TIME AT [facility].WILL FOLLOW UP.
[2020-03-02 12:00] VITALS: BP 143/78
--- NOTE | 2020-03-02 12:12 | Surgery Progress Note ---
Surgery Progress Note Subjective Additional Comments h/h stable renal function improved no n/v Objective Last 24 Hour Vital Signs Date Time Temp Pulse Resp B/P (MAP) Pulse Ox O2 Delivery O2 Flow Rate FiO2 03/02/20 10:06 98 152/93 03/02/20 10:06 152/93 03/02/20 09:00 Nasal Cannula 2.0 03/02/20 08:00 98.6 98 18 152/93 (112) 98 03/02/20 07:03 189/104 03/02/20 07:03 189/104 03/02/20 04:00 97.4 89 18 189/104 (132) 94 03/02/20 00:00 98.4 92 18 169/84 (112) 96 03/01/20 21:57 178/111 03/01/20 21:00 Nasal Cannula 2.0 03/01/20 20:00 99.0 77 18 112/72 (85) 98 03/01/20 18:30 90 167/87 (113) 03/01/20 16:15 92 181/101 (127) 03/01/20 16:07 98.6 95 20 183/108 (133) 97 I&O Intake and Output 03/01/20 03/02/20 19:00 07:00 Intake Total 640 ml 360 ml Output Total 600 ml 2000 ml Balance 40 ml -1640 ml Intake Oral 640 ml Other 360 ml Output Urine Total 600 ml Hemodialysis UF 2000 ml # Voids 3 1 Dressing: saturated Cardiovascular: RSR Respiratory: decreased breath sounds Abdomen: soft, non-tender, present bowel sounds, non-distended Extremities: no edema, no tenderness, no cyanosis Laboratory Tests Test 03/02/20 07:06 Sodium Level 141 MMOL/L (136-145) Potassium Level 3.7 MMOL/L (3.5-5.1) Chloride Level 104 MMOL/L (98-107) Carbon Dioxide Level 31 MMOL/L (21-32) Anion Gap 6 mmol/L (5-15) Blood Urea Nitrogen 32 mg/dL (7-18) H Creatinine 3.1 MG/DL (0.55-1.30) H Estimat Glomerular Filtration Rate 14.7 mL/min (>60) Glucose Level 86 MG/DL (74-106) Calcium Level 8.2 MG/DL (8.5-10.1) L Phosphorus Level 3.6 MG/DL (2.5-4.9) Magnesium Level 1.7 MG/DL (1.8-2.4) L Troponin I 0.108 ng/mL (0.000-0.056) Plan Problems: (1) Abnormal LFTs Assessment & Plan: Patient identified to have elevated LFTs on admission. Complaints abdominal discomfort. No imaging currently performed. Abdominal ultrasound ordered. Trend labs IV fluids will monitor recommendations with evaluation of medications and serial abdominal exams. Exam is limited due to patient having limited ability to cooperate. Gallbladder demonstrates focal wall thickening and edema, gallbladder wall just over 4 mm thick. There is also small amount of pericholecystic fluid No gallstones. Sonographic Lewis's sign is negative. Common bile duct measures 5 mm in diameter. No intrahepatic biliary ductal dilatation. Liver demonstrates slightly i ncreased echogenicity, no focal abnormality. Portal vein and hepatic veins are patent. Pancreas is unremarkable. Spleen is unremarkable. Left kidney measures 7.7 cm in length. Right kidney measures 8 cm length. Both kidneys demonstrate increased echogenicity There is no hydronephrosis. No focal abnormality . Abdominal aorta is partially obscured by bowel gas, visualized portions are non-aneurysmal . Right pleural effusion incidentally noted Impression: Somewhat limited exam, as described Increased renal echogenicity bilaterally, indicating medical renal disease. Incidental finding of bilateral renal cysts Mildly increased hepatic echogenicity, likely medical renal disease Negative for gallstones. There is focal gallbladder wall thickening and some pericholecystic fluid. This is probably due to edema of systemic causes but the possibility of acalculous acute cholecystitis should also be considered Right pleural effusion Note incompletely visualized distal abdominal aorta (2) Abdominal discomfort Assessment & Plan: No significant bowel distention. Discomfort on palpation asking for pain medications. No nausea vomiting fever chills. Okay for diet as tolerated we will follow with serial exams Thank allowing participation's care (3) Anemia (4) UTI (urinary tract infection) (5) Hypertension (6) ESRF (end stage renal failure) (7) Noncompliance (8) Head injury, acute (9) Cocaine abuse (10) Acute exacerbation of CHF (congestive heart failure) (11) Pain syndrome, chronic (12) Elevated troponin I level Blu Lema Mar 02, 2020 12:12
--- NOTE | 2020-03-02 12:53 | NUR ---
P.T WEEKLY PROGRESS NOTES: PATIENT SEEN THIS PAST WEEK OF SKILLED P.T SERVICES. NO OF TX SESSIONS WERE LIMITED DUE TO AGITATIVE BEHAVIOR THEREFOR LIMITED PROGRESS TOWARDS MOBILITY INDEPENDENCE. ASSISTANCE FLUCTUATES FROM SBA-MIN X 1 FOR BED MOBILITIES, SBA-CGA X FOR TRANSFERS. PATIENT ABLE TO AMBULATE DISTANCE OF 50FT USING THE FWW WITH SBA/CGA X 1 AND VERBAL CUES FOR SAFETY AWARENESS. PATIENT SHOULD CONTINUE TO BENEFIT FROM SKILLED P.T TO FURTHER INCREASE MOBILITY INDEPENDENCE. RECOMMEND SNF FOR FURTHER REHAB INTERVENTION AT [facility].
--- NOTE | 2020-03-02 15:25 | NUR ---
NURSE NOTES: patient was seen by Dr. Marrero. notified MD that patient MG 1.7 today. received order of Magnesium sulfate 1gm IVPB once. order noted and carried out.
[2020-03-02 16:00] VITALS: BP 138/83
--- NOTE | 2020-03-02 17:26 | General Progress Note ---
Subjective Date patient seen: Mar 02, 2020 ROS Limited/Unobtainable: Yes Allergies: Coded Allergies: SULFA (SULFONAMIDE ANTIBIOTICS) (Verified Allergy, Unknown, 02/24/20) Subjective No acute events overnight per nursing. Patient sleepy today. Not very conversant, still altered. Does not answer appropriately. No signs of further bleeding. Still on 1-2 L nasal cannula. Further subjective history unable to be obtained due to ALOC Review of systems: Unable to be obtained due to ALOC Objective Last 24 Hour Vital Signs Date Time Temp Pulse Resp B/P (MAP) Pulse Ox O2 Delivery O2 Flow Rate FiO2 03/02/20 16:00 97.0 97 18 138/83 (101) 95 03/02/20 13:27 143/78 03/02/20 13:27 143/78 03/02/20 12:00 99.3 97 18 143/78 (99) 92 03/02/20 10:47 98.6 03/02/20 10:06 98 152/93 03/02/20 10:06 152/93 03/02/20 09:00 Nasal Cannula 2.0 03/02/20 08:00 98.6 98 18 152/93 (112) 98 03/02/20 07:03 189/104 03/02/20 07:03 189/104 03/02/20 04:00 97.4 89 18 189/104 (132) 94 03/02/20 00:00 98.4 92 18 169/84 (112) 96 03/01/20 21:57 178/111 03/01/20 21:00 Nasal Cannula 2.0 03/01/20 20:00 99.0 77 18 112/72 (85) 98 03/01/20 18:30 90 167/87 (113) Intake and Output 03/01/20 03/02/20 19:00 07:00 Intake Total 640 ml 360 ml Output Total 600 ml 2000 ml Balance 40 ml -1640 ml Intake Oral 640 ml Other 360 ml Output Urine Total 600 ml Hemodialysis UF 2000 ml # Voids 3 1 Laboratory Tests 03/02/20 07:06: Sodium Level 141, Potassium Level 3.7, Chloride Level 104, Carbon Dioxide Level 31, Anion Gap 6, Blood Urea Nitrogen 32H, Creatinine 3.1H, Estimat Glomerular Filtration Rate 14.7, Glucose Level 86, Calcium Level 8.2L, Phosphorus Level 3.6, Magnesium Level 1.7L, Troponin I 0.108H Height (Feet): 5 Height (Inches): 4.00 Weight (Pounds): 160 Objective General: WDWN female in NAD, Altered. Sleeping, not conversant. In restraints for safety, HEENT: Normocephalic cephalic atraumatic, pupils equal round reactive to light and accommodation, nares patent and no symmetrical, no tonsillar exudates, mucous membranes moist CV: Regular rate regular rhythm, no murmurs, rubs, or gallops. New HD line C/d/i. Pulm: Lungs clear to auscultation bilaterally. No wheezes, rhonchi, or rales GI: Soft, nontender, nondistended, bowel sounds present Neuro: CN 2-12 intact bilaterally, no focal signs. Moving all extremities Ext: No lower extremity edema bilaterally Skin: no rashes lesions or ulcers Msk: Joints symmetrical in upper extremity and lower extremity bilaterally, no joint swelling. Lymph: No lymphadenopathy in upper extremity and lower extremity Assessment/Plan Assessment/Plan: 74 yo F with PMHX CHF. CKD4, opioid abuser, chronic untraceable pain syndrome, admitted for CHF exacerbation and fluid overload # Acute systolic heart failure exacerbation. # s/p CKD5 # Now ESRD # Acute metabolic encephalopathy - stable - lasix 60mg BID - fluid restriction - plan for HD with Dr. Munroe, need coordiante care - No family or surrogate decision makers available at this time. Patient lacks capacity. Completely altered. Social work consulted. - At this time patient unable to make their own health care decisions. Procedure or treatment is necessary to alleviate severe pain and/or, if not performed, would lead to serious disability or . - patient unable to maker her own health care decision likely due to uremic encephalopathy I also believe HD is necessary to improved her current condition therefore we will proceed with permcath placement as renal replacement therapy is felt to prevent major disability - IR placed HD catheter. - Renal/heart healthy diet #Acute blood loss anemia 2/2 tunneled cath line removal > no further signs of bleeding - PRBC transfusion 02/26 with appropriate response - Patient still unable to consent and no surrogate decision maker available. Agree to proceed due to emergent nature. #Elevated alk phos #elevated GGT > Suspect could be due to hepatic congestion from heart failure - abdominal ultrasound: gallbladder thickening - > D/w Surgery. No suspicion for cholecystitis - Appreciate gen surgery recommendations: D/w Dr. Lema #Acute systolic heart failure exacerbation #Elevated troponin, suspect due to demand ischemia and ESRD. Appreciate cardiology input #essential hypertension - EF 20-25%. Global hypokinesis D/w Cardiology. Ischemia vs. history of cocaine use - asa 81 - Increased benazepril to 40mg Po daily by Cardiology - HD per nephrology - appreciate cardiology recommendations #Urinary tract infection - blood cultures: NGTD - urine culture: mixed results - Rocephin (02/23 - ) # LE edema - US LE to r/o dvt: pending. D/w nursing again who will follow up # Opioid abuse #H/o cocaine abuse - avoid unnecessary narcotic FENPPX DVTPPX: Diet: renal Lines: tunneled line PT/OT: pending Code status: full per policy Dispo: SNF eventually Reason for Continued Hospitalization: ESRD, encephalopathy MIPS (Merit-based Incentive Payment System) Applicable CPT: 11693, 78981 CHECK ALL THAT ARE MET: [] Measure #5 (CHF): All ages. Prescribe BLACK/ARB upon discharge for patients with left ventricular systolic dysfunction. If not, the reason is clearly documented in the medical chart .[] Measure #8 (CHF): All ages. Prescribe a beta marlys upon discharge for patients with left ventricular systolic dysfunction. If not, the reason is clearly documented in the medical chart. [x] Measure #47: Advance care plan or surrogate decision maker documented in the medical record. [x] Measure #130 The provider has documented, updated, or reviewed the patients current medication list and has documented it in the patients note. [] Measure #374 (All): Send report to referring provider. [] Measure #407(Sepsis due to MSSA bacteremia): Age 18+ Patient treated with a beta-lactam antibiotic (Nafcillin, Oxacillin or Cefazolin) as definitive therapy. MEDICAL COMPLEXITYHigh complexity medical decision making (need 2/3 categories)Problem - need 4 points [x]Acute/new problem with new plan for workup (4 points, 1 max) [] Acute/new problem without additional workup (3 points, 1 max) [] Unstable chronic problem actively being managed (2 point each, 2 max) [] Stable chronic problem actively being managed (1 point each, 2 max) [] Self-limited/transient process (constipation, muscle ache, etc) (1 point each, 2 max) Data - need 4 points [x] Reviewed labs/imaging studies (1 points, 2 max) [x] Independent review of imaging (EKG, xrays, etc) (2 points, 2 max) [x] Discussed case with consult/other MD/RN (2 points, 2 max) High Risk - qualify if have one of the following: [x] Severe exacerbation of acute problem, acute mental status change, IV narcotics, monitoring drug levels (vancomycin, INR, tacrolimus etc) I spent 35 minutes on this patient's case, and 19 mins was dedicated to counseling and/or care coordination. Discussed with nephro, Bedside RN Time of note may not reflect time of encounter Boris Marrero M.D. Mar 02, 2020 17:26
--- NOTE | 2020-03-02 19:29 | NUR ---
NURSE HAND-OFF: Important Events on Shift:IV ATB, restraints Patient Status: stable, restless, agitated Diet: renal Pending Orders: n/a Pending Results/Labs:n/a Pending MD notification:n/a Latest Vital Signs: Temperature 97.0 , Pulse 97 , B/P 138 /83 , Respiratory Rate 18 , O2 SAT 95 , Nasal Cannula, O2 Flow Rate 2.0 . Vital Sign Comment: stable except for HTN Latest Mcconnell Fall Score: 50 Fall Risk: High Risk Safety Measures: Call light Within Reach, Bed Alarm Zone 1, Side Rails Side Rails x3, Bed position Low and Locked. Fall Precautions: Yellow Socks Yellow Gown Door Sign Patient Fall Education Report given to MARY Madera.
--- NOTE | 2020-03-02 19:45 | NUR ---
NURSE NOTES: Received report from Lisa HERNANDEZ. Patient is awake, alert and oriented x3 confused. On NC 2L, breathing is even and unlabored. No C/O pain or distress noted. Patient has hearing problem but understands when speaking louder. Right subclavian permacath dressing is intact and dry. IV right thumb intact and patent with no bleeding noted. Bed low and locked. Call light within reach.
[2020-03-02 20:00] VITALS: BP 124/80
[2020-03-02] MEDS: cefTRIAXone 1 GM in D5W 55 ML IVPB SCH (21:52)
--- NOTE | 2020-03-02 22:04 | Neurology Progress Note ---
Interim History Interim History ROS Limited/Unobtainable: Yes Interim History tired, somnolent Objective Physical Exam Last Vital Signs Date Time Temp Pulse Resp B/P (MAP) Pulse Ox O2 Delivery O2 Flow Rate FiO2 03/02/20 21:53 124/80 03/02/20 17:33 97 03/02/20 16:00 97.0 18 95 03/02/20 09:00 Nasal Cannula 2.0 Laboratory Tests Test 03/02/20 07:06 Sodium Level 141 MMOL/L (136-145) Potassium Level 3.7 MMOL/L (3.5-5.1) Chloride Level 104 MMOL/L (98-107) Carbon Dioxide Level 31 MMOL/L (21-32) Anion Gap 6 mmol/L (5-15) Blood Urea Nitrogen 32 mg/dL (7-18) H Creatinine 3.1 MG/DL (0.55-1.30) H Estimat Glomerular Filtration Rate 14.7 mL/min (>60) Glucose Level 86 MG/DL (74-106) Calcium Level 8.2 MG/DL (8.5-10.1) L Phosphorus Level 3.6 MG/DL (2.5-4.9) Magnesium Level 1.7 MG/DL (1.8-2.4) L Troponin I 0.108 ng/mL (0.000-0.056) Head: normocophalic Neck: no rigidity EENT: benign Neurologic Exam Mental Status: awake, alert Cranial Nerve II: visual juarez Cranial Nerves III, IV, : PERRLA, EOMI Cranial Nerve V: normal facial sensations Objective ao x 2 flapping noted tangential non focal Impression/Recommendations Problems: (1) Anemia (2) UTI (urinary tract infection) (3) Hypertension (4) ESRF (end stage renal failure) (5) Noncompliance (6) Head injury, acute (7) Cocaine abuse (8) Acute exacerbation of CHF (congestive heart failure) (9) Pain syndrome, chronic (10) Elevated troponin I level (11) Abdominal discomfort (12) Abnormal LFTs Diagnostic Impression acute encephalopathy, likely uremic agitation tele seroquel 25 mg bid standing HD per nephro PT OT as able no opioids Hay Johnson MD Mar 02, 2020 22:04
[2020-03-03] VITALS: BP 120/62
--- NOTE | 2020-03-03 02:46 | Cardiology Progress Note ---
Subjective DATE OF SERVICE: Mar 02, 2020 No new complaints. Still withdrawn at times. BP parameters stabilizing, althouth still elevated at times. Monitor: sinus rhythm/sinus tachycardia s/p HD/UF 02/29/20 Remains confused but much more alert. 2D Echo: EF30%, severe pulm HTN with PAP 90mmHg, global and regional wall motion abnormalities Objective Last 24 Hour Vital Signs Date Time Temp Pulse Resp B/P (MAP) Pulse Ox O2 Delivery O2 Flow Rate FiO2 03/03/20 00:00 99.0 95 20 120/62 (81) 96 03/02/20 21:53 124/80 03/02/20 21:00 Nasal Cannula 2.0 03/02/20 20:00 97.9 96 18 124/80 (95) 98 03/02/20 17:34 138/83 03/02/20 17:33 97 138/83 03/02/20 16:00 97.0 97 18 138/83 (101) 95 03/02/20 13:27 143/78 03/02/20 13:27 143/78 03/02/20 12:00 99.3 97 18 143/78 (99) 92 03/02/20 10:47 98.6 03/02/20 10:06 98 152/93 03/02/20 10:06 152/93 03/02/20 09:00 Nasal Cannula 2.0 03/02/20 08:00 98.6 98 18 152/93 (112) 98 03/02/20 07:03 189/104 03/02/20 07:03 189/104 03/02/20 04:00 97.4 89 18 189/104 (132) 94 ROS: unchanged from my assessment of 02/25/20 HEENT: normal ENT inspection RHYTHM: NSR, ST LUNGS: diminished breath sounds, rales bilaterally - few, other - Right chest wall cath site with no active bleeding CARDIAC: normal rate, regular rhythm, normal S1 and S2, systolic murmur - 2/6 systolic murmur at LLSB, gallop/S4 ABDOMEN: normal bowel sounds, non tender, soft, no organomegaly EXTREMITIES: normal range of motion, non-tender, +1 edema Laboratory Tests Test 03/02/20 07:06 Sodium Level 141 MMOL/L (136-145) Potassium Level 3.7 MMOL/L (3.5-5.1) Chloride Level 104 MMOL/L (98-107) Carbon Dioxide Level 31 MMOL/L (21-32) Anion Gap 6 mmol/L (5-15) Blood Urea Nitrogen 32 mg/dL (7-18) H Creatinine 3.1 MG/DL (0.55-1.30) H Estimat Glomerular Filtration Rate 14.7 mL/min (>60) Glucose Level 86 MG/DL (74-106) Calcium Level 8.2 MG/DL (8.5-10.1) L Phosphorus Level 3.6 MG/DL (2.5-4.9) Magnesium Level 1.7 MG/DL (1.8-2.4) L Troponin I 0.108 ng/mL (0.000-0.056) Microbiology Date/Time Source Procedure Growth Status 03/01/20 13:40 Nasopharynx SARS-CoV-2 RdRp Gene Assay - Final Complete Assessment/Plan Assessment/Plan Metabolic encephalopathy CKD5 now with presumed ESRD Acute myocardial ischemia/possible NSTE myocardial infarction Ischemic and cocaine cardiomyopathy Severe pulmonary hypertension Acute on chronic systolic CHF Hypertensive urgency resikved Anemia of CKD Hypomagnesemia HD/UF Nitrates PRBC tx Anti-plt therapy Maximizing antiHTN and anti-failure regimen further, including ACEi since diagnosed with ESRD Epo/Fe++; consider PRBC transfusion Magnesium replacement as needed Sourav Montejo MD Mar 03, 2020 02:46
[2020-03-03 04:00] VITALS: BP 129/75
[2020-03-03] MEDS: Heparin 5000 units/ml inj SUBQ SCH ×3 (06:00→21:19)
[2020-03-03] MEDS: HydrALAZINE 50mg tab ORAL SCH ×3 (06:25→21:19)
[2020-03-03] MEDS: Nitroglycerin 2% oint pkt TOPIC SCH ×3 (06:25→17:16)
[2020-03-03 06:50] LABS: HEMATOCRIT 25.1 % (37.0-47.0); HEMOGLOBIN 8.2 G/DL (12.0-16.0); MEAN CORPUSCULAR VOLUME 90 FL (80-99); PLATELET COUNT 83 K/UL (150-450); RED BLOOD COUNT 2.79 M/UL (4.20-5.40); RED CELL DISTRIBUTION WIDTH 15.5 % (11.6-14.8)
[2020-03-03 07:20] LABS: CREATININE 3.5 MG/DL (0.55-1.30); PHOSPHORUS 3.3 MG/DL (2.5-4.9); POTASSIUM 3.9 MMOL/L (3.5-5.1)
--- NOTE | 2020-03-03 07:27 | NUR ---
NURSE HAND-OFF: Important Events on Shift: BP management, Heparin hold due to Plt 83. Patient Status: Stable Diet: Renal (mechanical soft chopped) Pending Orders: Pending Results/Labs:[] Pending MD notification:[] Latest Vital Signs: Temperature 99.0 , Pulse 87 , B/P 129 /75 , Respiratory Rate 20 , O2 SAT 95 , Nasal Cannula, O2 Flow Rate 2.0 . Vital Sign Comment: VS stable Latest Mcconnell Fall Score: 75 Fall Risk: High Risk Safety Measures: Call light Within Reach, Bed Alarm Zone 1, Side Rails Side Rails x3, Bed position Low and Locked. Fall Precautions: Yellow Socks Yellow Gown Door Sign Patient Fall Education Report given to Lisa HERNANDEZ.
[2020-03-03 08:00] VITALS: BP 135/74
--- NOTE | 2020-03-03 08:10 | NUR ---
NURSE NOTES: Patient aaoX2, no respiratory distress noted, verbally responsive. Vital signs stable. Plan of care and discharge communicated. Abdomen soft and non tender. Bed in lowest position and locked. Call light within reach. Will continue to monitor.
--- NOTE | 2020-03-03 08:53 | Nephrology Progress Note ---
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 #troponemia #CHF #h/o polysubtance abuse, cocaine abuser #HTN #anemia - HD today - monitor hemoglobin level - cardiology eval - 2D Echo: EF30%, severe pulm HTN with PAP 90mmHg, global and regional wall motion abnormalities - amlodipine 10mg daily - add benazopril 20mg daily - increase 50 TID - continue lasix 60 IV BID for now - ceftriaxone for UTI -continue epo - monitor electrolytes time spent 65 min Subjective ROS Limited/Unobtainable: Yes Subjective hemoglobin stable s/p HD yesterday 2D Echo: EF30%, severe pulm HTN with PAP 90mmHg, global and regional wall motion abnormalities remains confused Objective Objective Last 24 Hour Vital Signs Date Time Temp Pulse Resp B/P (MAP) Pulse Ox O2 Delivery O2 Flow Rate FiO2 03/03/20 08:00 98.1 91 20 135/74 (94) 98 03/03/20 06:25 129/75 03/03/20 06:25 129/75 03/03/20 04:00 99.0 87 20 129/75 (93) 95 03/03/20 00:00 99.0 95 20 120/62 (81) 96 03/02/20 21:53 124/80 03/02/20 21:00 Nasal Cannula 2.0 03/02/20 20:00 97.9 96 18 124/80 (95) 98 03/02/20 17:34 138/83 03/02/20 17:33 97 138/83 03/02/20 16:00 97.0 97 18 138/83 (101) 95 03/02/20 13:27 143/78 03/02/20 13:27 143/78 03/02/20 12:00 99.3 97 18 143/78 (99) 92 03/02/20 10:47 98.6 03/02/20 10:06 98 152/93 03/02/20 10:06 152/93 03/02/20 09:00 Nasal Cannula 2.0 Intake and Output 03/02/20 03/03/20 19:00 07:00 Intake Total 400 ml 55 ml Output Total 500 ml Balance -100 ml 55 ml Intake Oral 400 ml IV Total 55 ml Output Urine Total 500 ml # Voids 6 Laboratory Tests 03/03/20 05:30: White Blood Count 7.0, Red Blood Count 2.79L, Hemoglobin 8.2L, Hematocrit 25.1L, Mean Corpuscular Volume 90, Mean Corpuscular Hemoglobin 29.2, Mean Corpuscular Hemoglobin Concent 32.5, Red Cell Distribution Width 15.5H, Platelet Count 83L, Mean Platelet Volume 8.6, Neutrophils (%) (Auto) , Lymphocytes (%) (Auto) , Monocytes (%) (Auto) , Eosinophils (%) (Auto) , Basophils (%) (Auto) , Neutrophils % (Manual) [Pending], Lymphocytes % (Manual) [Pending], Platelet Estimate [Pending], Platelet Morphology [Pending], Sodium Level 139, Potassium Level 3.9, Chloride Level 105, Carbon Dioxide Level 29, Anion Gap 5, Blood Urea Nitrogen 41H, Creatinine 3.5H, Estimat Glomerular Filtration Rate 12.8, Glucose Level 87, Calcium Level 8.0L, Phosphorus Level 3.3, Magnesium Level 2.0, Pro-B- Type Natriuretic Peptide > 98051Y Height (Feet): 5 Height (Inches): 4.00 Weight (Pounds): 160 Ace Munroe M.D. Mar 03, 2020 08:53
[2020-03-03] MEDS: Aspirin Baby 81mg ORAL SCH (08:55)
--- NOTE | 2020-03-03 09:18 | NUR ---
DISCHARGE PLANNING HD REFERRAL ORDER NOTED. PATIENT HAS BEEN REFERRED TO [facility] P [phone] F [phone]
[2020-03-03 12:00] VITALS: BP 146/87
--- NOTE | 2020-03-03 12:10 | NUR ---
NURSE NOTES: Patient complaining of severe pain but refusing pain meds Tylenol and [place] as prescribed. Patient has been refusing dialysis until the pain med is given. ordered Morphine 1 mg IV q3 hr, PRN. RN verified and carried out the order.
--- NOTE | 2020-03-03 12:13 | NUR ---
NURSE NOTES: MD discontinued non-violent restraint order. RN verified and carried out the order.
--- NOTE | 2020-03-03 12:30 | Surgery Progress Note ---
Surgery Progress Note Subjective Additional Comments planned HD but refused at times wants pain meds no n/v labs noted exam stable Objective Last 24 Hour Vital Signs Date Time Temp Pulse Resp B/P (MAP) Pulse Ox O2 Delivery O2 Flow Rate FiO2 03/03/20 09:00 Nasal Cannula 2.0 03/03/20 08:54 91 135/74 03/03/20 08:54 135/74 03/03/20 08:00 98.1 91 20 135/74 (94) 98 03/03/20 06:25 129/75 03/03/20 06:25 129/75 03/03/20 04:00 99.0 87 20 129/75 (93) 95 03/03/20 00:00 99.0 95 20 120/62 (81) 96 03/02/20 21:53 124/80 03/02/20 21:00 Nasal Cannula 2.0 03/02/20 20:00 97.9 96 18 124/80 (95) 98 03/02/20 17:34 138/83 03/02/20 17:33 97 138/83 03/02/20 16:00 97.0 97 18 138/83 (101) 95 03/02/20 13:27 143/78 03/02/20 13:27 143/78 I&O Intake and Output 03/02/20 03/03/20 19:00 07:00 Intake Total 400 ml 55 ml Output Total 500 ml Balance -100 ml 55 ml Intake Oral 400 ml IV Total 55 ml Output Urine Total 500 ml # Voids 6 Dressing: saturated Cardiovascular: RSR Respiratory: decreased breath sounds Abdomen: soft, non-tender, present bowel sounds, non-distended Extremities: no tenderness, no cyanosis, other Laboratory Tests Test 03/03/20 05:30 White Blood Count 7.0 K/UL (4.8-10.8) Red Blood Count 2.79 M/UL (4.20-5.40) L Hemoglobin 8.2 G/DL (12.0-16.0) L Hematocrit 25.1 % (37.0-47.0) L Mean Corpuscular Volume 90 FL (80-99) Mean Corpuscular Hemoglobin 29.2 PG (27.0-31.0) Mean Corpuscular Hemoglobin Concent 32.5 G/DL (32.0-36.0) Red Cell Distribution Width 15.5 % (11.6-14.8) H Platelet Count 83 K/UL (150-450) L Mean Platelet Volume 8.6 FL (6.5-10.1) Neutrophils (%) (Auto) % (45.0-75.0) Lymphocytes (%) (Auto) % (20.0-45.0) Monocytes (%) (Auto) % (1.0-10.0) Eosinophils (%) (Auto) % (0.0-3.0) Basophils (%) (Auto) % (0.0-2.0) Differential Total Cells Counted 100 Neutrophils % (Manual) 70 % (45-75) Lymphocytes % (Manual) 12 % (20-45) L Monocytes % (Manual) 15 % (1-10) H Eosinophils % (Manual) 3 % (0-3) Basophils % (Manual) 0 % (0-2) Band Neutrophils 0 % (0-8) Platelet Estimate Decreased L Platelet Morphology Normal Hypochromasia 1+ Sodium Level 139 MMOL/L (136-145) Potassium Level 3.9 MMOL/L (3.5-5.1) Chloride Level 105 MMOL/L (98-107) Carbon Dioxide Level 29 MMOL/L (21-32) Anion Gap 5 mmol/L (5-15) Blood Urea Nitrogen 41 mg/dL (7-18) H Creatinine 3.5 MG/DL (0.55-1.30) H Estimat Glomerular Filtration Rate 12.8 mL/min (>60) Glucose Level 87 MG/DL (74-106) Calcium Level 8.0 MG/DL (8.5-10.1) L Phosphorus Level 3.3 MG/DL (2.5-4.9) Magnesium Level 2.0 MG/DL (1.8-2.4) Pro-B-Type Natriuretic Peptide > 53012 pg/mL (0-125) H Plan Problems: (1) Abnormal LFTs Assessment & Plan: Patient identified to have elevated LFTs on admission. Complaints abdominal discomfort. No imaging currently performed. Abdominal ultrasound ordered. Trend labs IV fluids will monitor recommendations with evaluation of medications and serial abdominal exams. Exam is limited due to patient having limited ability to cooperate. Gallbladder demonstrates focal wall thickening and edema, gallbladder wall just over 4 mm thick. There is also small amount of pericholecystic fluid No gallstones. Sonographic Lewis's sign is negative. Common bile duct measures 5 mm in diameter. No intrahepatic biliary ductal dilatation. Liver demonstrates slightly increased echogenicity, no focal abnormality. Portal vein and hepatic veins are patent. Pancreas is unremarkable. Spleen is unremarkable. Left kidney measures 7.7 cm in length. Right kidney measures 8 cm length. Both kidneys demonstrate increased echogenicity There is no hydronephrosis. No focal abnormality . Abdominal aorta is partially obscured by bowel gas, visualized portions are non-aneurysmal . Right pleural effusion incidentally noted Impression: Somewhat limited exam, as described Increased renal echogenicity bilaterally, indicating medical renal disease. Incidental finding of bilateral renal cysts Mildly increased hepatic echogenicity, likely medical renal disease Negative for gallstones. There is focal gallbladder wall thickening and some pericholecystic fluid. This is probably due to edema of systemic causes but the possibility of acalculous acute cholecystitis should also be considered Right pleural effusion Note incompletely visualized distal abdominal aorta (2) Abdominal discomfort Assessment & Plan: No significant bowel distention. Discomfort on palpation asking for pain medications. No nausea vomiting fever chills. Okay for diet as tolerated we will follow with serial exams Thank allowing participation's care (3) Anemia (4) UTI (urinary tract infection) (5) Hypertension (6) ESRF (end stage renal failure) (7) Noncompliance (8) Head injury, acute (9) Cocaine abuse (10) Acute exacerbation of CHF (congestive heart failure) (11) Pain syndrome, chronic (12) Elevated troponin I level Blu Lema Mar 03, 2020 12:30
[2020-03-03] MEDS: Morphine Sulfate 2mg/ml Inj(IV/IM USE ONLY) IVP PRN ×3 (12:44→20:59)
--- NOTE | 2020-03-03 15:01 | NUR ---
CASE MANAGEMENT:REVIEW SI; ENCEPHALOPATHY. ANEMIA. ESRD. 99.0 95 20 135/74 95% 2L NC H/H 8.2/25.1 PLT 83 BUN 41 CR 3.5 BNP >65508 IS;MORPHINE IV Q3 PRN EPOETIN [place] M/W/F SQ NITRO-BID TOP TID ROCEPHIN IV PO QD LASIX IV BID MED SURG STATUS DCP;FROM HOME PLAN; DC PENDING OPT DIALYSIS CONFIRMATION SNF PLACEMENT ACCEPTED AT [facility]
[2020-03-03 16:00] VITALS: BP 152/94
--- NOTE | 2020-03-03 17:27 | General Progress Note ---
Subjective Date patient seen: Mar 03, 2020 ROS Limited/Unobtainable: No Allergies: Coded Allergies: SULFA (SULFONAMIDE ANTIBIOTICS) (Verified Allergy, Unknown, 02/24/20) Subjective No acute events overnight per nursing. Patient still sleepy today. Altered and not able to answer appropriately though per nurse report, waxes and wanes. No signs of further bleeding. Still on 2 L nasal cannula. Further subjective history unable to be obtained due to ALOC Review of systems: Unable to be obtained due to ALOC Objective Last 24 Hour Vital Signs Date Time Temp Pulse Resp B/P (MAP) Pulse Ox O2 Delivery O2 Flow Rate FiO2 03/03/20 17:16 152/94 03/03/20 16:00 98.4 94 20 152/94 (113) 96 03/03/20 14:00 146/87 03/03/20 13:14 97.3 03/03/20 13:00 146/87 03/03/20 12:00 97.3 94 20 146/87 (106) 96 03/03/20 09:00 Nasal Cannula 2.0 03/03/20 08:54 91 135/74 03/03/20 08:54 135/74 03/03/20 08:00 98.1 91 20 135/74 (94) 98 03/03/20 06:25 129/75 03/03/20 06:25 129/75 03/03/20 04:00 99.0 87 20 129/75 (93) 95 03/03/20 00:00 99.0 95 20 120/62 (81) 96 03/02/20 21:53 124/80 03/02/20 21:00 Nasal Cannula 2.0 03/02/20 20:00 97.9 96 18 124/80 (95) 98 03/02/20 17:34 138/83 03/02/20 17:33 97 138/83 Intake and Output 03/02/20 03/03/20 19:00 07:00 Intake Total 400 ml 55 ml Output Total 500 ml Balance -100 ml 55 ml Intake Oral 400 ml IV Total 55 ml Output Urine Total 500 ml # Voids 6 Laboratory Tests 03/03/20 05:30: White Blood Count 7.0, Red Blood Count 2.79L, Hemoglobin 8.2L, Hematocrit 25.1L, Mean Corpuscular Volume 90, Mean Corpuscular Hemoglobin 29.2, Mean Corpuscular Hemoglobin Concent 32.5, Red Cell Distribution Width 15.5H, Platelet Count 83L, Mean Platelet Volume 8.6, Neutrophils (%) (Auto) , Lymphocytes (%) (Auto) , Monocytes (%) (Auto) , Eosinophils (%) (Auto) , Basophils (%) (Auto) , Differential Total Cells Counted 100, Neutrophils % (Manual) 70, Lymphocytes % (Manual) 12L, Monocytes % (Manual) 15H, Eosinophils % (Manual) 3, Basophils % (Manual) 0, Band Neutrophils 0, Platelet Estimate DecreasedL, Platelet Morphology Normal, Hypochromasia 1+, Sodium Level 139, Potassium Level 3.9, Chloride Level 105, Carbon Dioxide Level 29, Anion Gap 5, Blood Urea Nitrogen 41H, Creatinine 3.5H, Estimat Glomerular Filtration Rate 12.8, Glucose Level 87, Calcium Level 8.0L, Phosphorus Level 3.3, Magnesium Level 2.0, Pro-B-Type Natriuretic Peptide > 42224D Height (Feet): 5 Height (Inches): 4.00 Weight (Pounds): 160 Objective General: WDWN female in NAD, Altered. Resting, sleepy, not conversant HEENT: Normocephalic cephalic atraumatic, pupils equal round reactive to light and accommodation, nares patent and no symmetrical, no tonsillar exudates, mucous membranes moist CV: Regular rate regular rhythm, no murmurs, rubs, or gallops. HD line C/d/i. Pulm: Lungs clear to auscultation bilaterally. No wheezes, rhonchi, or rales GI: Soft, nontender, nondistended, bowel sounds present Neuro: CN 2-12 intact bilaterally, no focal signs. Moving all extremities Ext: No lower extremity edema bilaterally Skin: no rashes lesions or ulcers Msk: Joints symmetrical in upper extremity and lower extremity bilaterally, no joint swelling. Lymph: No lymphadenopathy in upper extremity and lower extremity Assessment/Plan Assessment/Plan: 74 yo F with PMHX CHF. CKD4, opioid abuser, chronic untraceable pain syndrome, admitted for CHF exacerbation and fluid overload # Acute systolic heart failure exacerbation. # s/p CKD5 # Now ESRD # Acute metabolic encephalopathy - stable - lasix 60mg BID - fluid restriction - HD with Dr. Munroe, need to coordinate care - Discharge pending dialysis center availability - No family or surrogate decision makers available at this time. Patient lacks capacity. Completely altered. Social work consulted. - At this time patient unable to make their own health care decisions. Procedure or treatment is necessary to alleviate severe pain and/or, if not performed, would lead to serious disability or . - patient unable to maker her own health care decision likely due to uremic encephalopathy I also believe HD is necessary to improved her current condition therefore we will proceed with permcath placement as renal replacement therapy is felt to prevent major disability - IR placed HD catheter. - Renal/heart healthy diet #Acute blood loss anemia 2/2 tunneled cath line removal > no further signs of bleeding - PRBC transfusion 02/26 with appropriate response - Patient still unable to consent and no surrogate decision maker available. Agree to proceed due to emergent nature. #Elevated alk phos #elevated GGT > Suspect could be due to hepatic congestion from heart failure - abdominal ultrasound: gallbladder thickening - > D/w Surgery. No suspicion for cholecystitis - Appreciate gen surgery recommendations: D/w Dr. Lema #Acute systolic heart failure exacerbation #Elevated troponin, suspect due to demand ischemia and ESRD. Appreciate cardiology input #essential hypertension - EF 20-25%. Global hypokinesis D/w Cardiology. Ischemia vs. history of cocaine use - asa 81 - Increased benazepril to 40mg Po daily by Cardiology - HD per nephrology - appreciate cardiology recommendations #Urinary tract infection - blood cultures: NGTD - urine culture: mixed results - Rocephin (02/23 - ) # LE edema - US LE to r/o dvt: pending. D/w nursing again who will follow up # Opioid abuse #H/o cocaine abuse - avoid unnecessary narcotic FENPPX DVTPPX: Diet: renal Lines: tunneled line PT/OT: pending Code status: full per policy Dispo: SNF eventually Reason for Continued Hospitalization: ESRD - needs accepting dialysis center, encephalopathy MIPS ([employer]-based Incentive Payment System) Applicable CPT: 95975, 56374 CHECK ALL THAT ARE MET: [] Measure #5 (CHF): All ages. Prescribe BLACK/ARB upon discharge for patients with left ventricular systolic dysfunction. If not, the reason is clearly documented in the medical chart .[] Measure #8 (CHF): All ages. Prescribe a beta marlys upon discharge for patients with left ventricular systolic dysfunction. If not, the reason is cl early documented in the medical chart. [x] Measure #47: Advance care plan or surrogate decision maker documented in the medical record. [x] Measure #130 The provider has documented, updated, or reviewed the patients current medication list and has documented it in the patients note. [] Measure #374 (All): Send report to referring provider. [] Measure #407(Sepsis due to MSSA bacteremia): Age 18+ Patient treated with a beta-lactam antibiotic (Nafcillin, Oxacillin or Cefazolin) as definitive therapy. MEDICAL COMPLEXITYHigh complexity medical decision making (need 2/3 categories)Problem - need 4 points [x]Acute/new problem with new plan for workup (4 points, 1 max) [] Acute/new problem without additional workup (3 points, 1 max) [] Unstable chronic problem actively being managed (2 point each, 2 max) [] Stable chronic problem actively being managed (1 point each, 2 max) [] Self-limited/transient process (constipation, muscle ache, etc) (1 point each, 2 max) Data - need 4 points [x] Reviewed labs/imaging studies (1 points, 2 max) [x] Independent review of imaging (EKG, xrays, etc) (2 points, 2 max) [x] Discussed case with consult/other MD/RN (2 points, 2 max) High Risk - qualify if have one of the following: [x] Severe exacerbation of acute problem, acute mental status change, IV narcotics, monitoring drug levels (vancomycin, INR, tacrolimus etc) I spent 35 minutes on this patient's case, and 24 mins was dedicated to counseling and/or care coordination. Discussed with [email or web address], Bedside RN, residential case manager Time of note may not reflect time of encounter Boris Marrero M.D. Mar 03, 2020 17:27
--- NOTE | 2020-03-03 18:38 | NUR ---
NURSE NOTES: SHERI Larios nurse from [facility] will do HD for the patient tonight after finishing at ICU.
--- NOTE | 2020-03-03 19:40 | NUR ---
NURSE HAND-OFF: Important Events on Shift:HD tonight. PT Patient Status:stable. Diet: renal mech soft Pending Orders:N/A Pending Results/Labs:N/A Pending MD notification:[N/A Latest Vital Signs: Temperature 98.4 , Pulse 94 , B/P 152 /94 , Respiratory Rate 20 , O2 SAT 96 , Nasal Cannula, O2 Flow Rate 2.0 . Vital Sign Comment: stable. BP raised since holding BP meds for HD Latest Mcconnell Fall Score: 75 Fall Risk: High Risk Safety Measures: Call light Within Reach, Bed Alarm Zone 1, Side Rails Side Rails x3, Bed position Low and Locked. Fall Precautions: Yellow Socks Yellow Gown Door Sign Patient Fall Education Report given to MARY Hui
--- NOTE | 2020-03-03 19:42 | NUR ---
NURSE NOTES: Pt. received from MARY Tam. Pt. AAOx2, hard of hearing, breathing even and unlabored on room air, no indications of respiratory distress, no complaints of pain. Pt. observed ambulatory with FWW at bedside. IV noted right thumb 24g, saline locked. Right chest permacath noted, dressing CDI. Bed low and locked, side rails x2 up, and call light in reach.
[2020-03-03 20:00] VITALS: BP 158/90
[2020-03-03] MEDS: Epoetin Alfa-EPBX(ESRD on dialysis)4000 units/ml vial SUBQ SCH (20:58)
--- NOTE | 2020-03-03 22:22 | Cardiology Progress Note ---
Subjective DATE OF SERVICE: Mar 03, 2020 No new complaints; more alert BP parameters stabilized. Last Dialysis was 03/02/20 2D Echo: EF30%, severe pulm HTN with PAP 90mmHg, global and regional wall motion abnormalities Objective Last 24 Hour Vital Signs Date Time Temp Pulse Resp B/P (MAP) Pulse Ox O2 Delivery O2 Flow Rate FiO2 03/03/20 21:00 Nasal Cannula 1.0 03/03/20 17:50 94 152/94 03/03/20 17:47 98.4 03/03/20 17:16 152/94 03/03/20 16:00 98.4 94 20 152/94 (113) 96 03/03/20 14:00 146/87 03/03/20 13:14 97.3 03/03/20 13:00 146/87 03/03/20 12:00 97.3 94 20 146/87 (106) 96 03/03/20 09:00 Nasal Cannula 2.0 03/03/20 08:54 91 135/74 03/03/20 08:54 135/74 03/03/20 08:00 98.1 91 20 135/74 (94) 98 03/03/20 06:25 129/75 03/03/20 06:25 129/75 03/03/20 04:00 99.0 87 20 129/75 (93) 95 03/03/20 00:00 99.0 95 20 120/62 (81) 96 ROS: unchanged from my assessment of 02/25/20 HEENT: normal ENT inspection RHYTHM: NSR, ST LUNGS: diminished breath sounds, rales bilaterally - few, other - Right chest wall cath site with no active bleeding CARDIAC: normal rate, regular rhythm, normal S1 and S2, systolic murmur - 2/6 systolic murmur at LLSB, gallop/S4 ABDOMEN: normal bowel sounds, non tender, soft, no organomegaly EXTREMITIES: normal range of motion, non-tender, +1 edema Laboratory Tests Test 03/03/20 05:30 White Blood Count 7.0 K/UL (4.8-10.8) Red Blood Count 2.79 M/UL (4.20-5.40) L Hemoglobin 8.2 G/DL (12.0-16.0) L Hematocrit 25.1 % (37.0-47.0) L Mean Corpuscular Volume 90 FL (80-99) Mean Corpuscular Hemoglobin 29.2 PG (27.0-31.0) Mean Corpuscular Hemoglobin Concent 32.5 G/DL (32.0-36.0) Red Cell Distribution Width 15.5 % (11.6-14.8) H Platelet Count 83 K/UL (150-450) L Mean Platelet Volume 8.6 FL (6.5-10.1) Neutrophils (%) (Auto) % (45.0-75.0) Lymphocytes (%) (Auto) % (20.0-45.0) Monocytes (%) (Auto) % (1.0-10.0) Eosinophils (%) (Auto) % (0.0-3.0) Basophils (%) (Auto) % (0.0-2.0) Differential Total Cells Counted 100 Neutrophils % (Manual) 70 % (45-75) Lymphocytes % (Manual) 12 % (20-45) L Monocytes % (Manual) 15 % (1-10) H Eosinophils % (Manual) 3 % (0-3) Basophils % (Manual) 0 % (0-2) Band Neutrophils 0 % (0-8) Platelet Estimate Decreased L Platelet Morphology Normal Hypochromasia 1+ Sodium Level 139 MMOL/L (136-145) Potassium Level 3.9 MMOL/L (3.5-5.1) Chloride Level 105 MMOL/L (98-107) Carbon Dioxide Level 29 MMOL/L (21-32) Anion Gap 5 mmol/L (5-15) Blood Urea Nitrogen 41 mg/dL (7-18) H Creatinine 3.5 MG/DL (0.55-1.30) H Estimat Glomerular Filtration Rate 12.8 mL/min (>60) Glucose Level 87 MG/DL (74-106) Calcium Level 8.0 MG/DL (8.5-10.1) L Phosphorus Level 3.3 MG/DL (2.5-4.9) Magnesium Level 2.0 MG/DL (1.8-2.4) Pro-B-Type Natriuretic Peptide > 16688 pg/mL (0-125) H Microbiology Date/Time Source Procedure Growth Status 03/01/20 13:40 Nasopharynx SARS-CoV-2 RdRp Gene Assay - Final Complete Assessment/Plan Assessment/Plan Metabolic encephalopathy ESRD Acute myocardial ischemia/possible NSTE myocardial infarction Ischemic and cocaine cardiomyopathy Severe pulmonary hypertension Acute on chronic systolic CHF Hypertensive urgency resikved Anemia of CKD Hypomagnesemia HD/UF Nitrates PRBC tx Anti-plt therapy Maximizing antiHTN and anti-failure regimen further, including ACEi since diagnosed with ESRD Epo/Fe++; consider PRBC transfusion Magnesium replacement as needed Sourav Montejo MD Mar 03, 2020 22:22
--- NOTE | 2020-03-03 22:39 | Neurology Progress Note ---
Interim History Interim History ROS Limited/Unobtainable: No Interim History remains somnolent, open eyes Objective Physical Exam Last Vital Signs Date Time Temp Pulse Resp B/P (MAP) Pulse Ox O2 Delivery O2 Flow Rate FiO2 03/03/20 21:00 Nasal Cannula 1.0 03/03/20 17:50 94 152/94 03/03/20 17:47 98.4 03/03/20 16:00 20 96 Laboratory Tests Test 03/03/20 05:30 White Blood Count 7.0 K/UL (4.8-10.8) Red Blood Count 2.79 M/UL (4.20-5.40) L Hemoglobin 8.2 G/DL (12.0-16.0) L Hematocrit 25.1 % (37.0-47.0) L Mean Corpuscular Volume 90 FL (80-99) Mean Corpuscular Hemoglobin 29.2 PG (27.0-31.0) Mean Corpuscular Hemoglobin Concent 32.5 G/DL (32.0-36.0) Red Cell Distribution Width 15.5 % (11.6-14.8) H Platelet Count 83 K/UL (150-450) L Mean Platelet Volume 8.6 FL (6.5-10.1) Neutrophils (%) (Auto) % (45.0-75.0) Lymphocytes (%) (Auto) % (20.0-45.0) Monocytes (%) (Auto) % (1.0-10.0) Eosinophils (%) (Auto) % (0.0-3.0) Basophils (%) (Auto) % (0.0-2.0) Differential Total Cells Counted 100 Neutrophils % (Manual) 70 % (45-75) Lymphocytes % (Manual) 12 % (20-45) L Monocytes % (Manual) 15 % (1-10) H Eosinophils % (Manual) 3 % (0-3) Basophils % (Manual) 0 % (0-2) Band Neutrophils 0 % (0-8) Platelet Estimate Decreased L Platelet Morphology Normal Hypochromasia 1+ Sodium Level 139 MMOL/L (136-145) Potassium Level 3.9 MMOL/L (3.5-5.1) Chloride Level 105 MMOL/L (98-107) Carbon Dioxide Level 29 MMOL/L (21-32) Anion Gap 5 mmol/L (5-15) Blood Urea Nitrogen 41 mg/dL (7-18) H Creatinine 3.5 MG/DL (0.55-1.30) H Estimat Glomerular Filtration Rate 12.8 mL/min (>60) Glucose Level 87 MG/DL (74-106) Calcium Level 8.0 MG/DL (8.5-10.1) L Phosphorus Level 3.3 MG/DL (2.5-4.9) Magnesium Level 2.0 MG/DL (1.8-2.4) Pro-B-Type Natriuretic Peptide > 41177 pg/mL (0-125) H Head: normocophalic Neck: no rigidity EENT: benign Neurologic Exam Mental Status: awake, alert Cranial Nerve II: visual juarez Cranial Nerves III, IV, : PERRLA, EOMI Cranial Nerve V: normal facial sensations Objective ao x 2 flapping noted tangential non focal Impression/Recommendations Problems: (1) Anemia (2) UTI (urinary tract infection) (3) Hypertension (4) ESRF (end stage renal failure) (5) Noncompliance (6) Head injury, acute (7) Cocaine abuse (8) Acute exacerbation of CHF (congestive heart failure) (9) Pain syndrome, chronic (10) Elevated troponin I level (11) Abdominal discomfort (12) Abnormal LFTs Diagnostic Impression acute encephalopathy, likely uremic agitation tele seroquel 25 mg bid standing HD per nephro PT OT as able no opioids Hay Johnson MD Mar 03, 2020 22:39
[2020-03-04] VITALS: BP 150/84
[2020-03-04] MEDS: Morphine Sulfate 2mg/ml Inj(IV/IM USE ONLY) IVP PRN ×6 (01:40→21:45)
[2020-03-04 04:00] VITALS: BP 176/98
[2020-03-04] MEDS: Heparin 5000 units/ml inj SUBQ SCH ×3 (05:18→21:57)
[2020-03-04] MEDS: HydrALAZINE 50mg tab ORAL SCH ×3 (06:21→22:02)
[2020-03-04] MEDS: Nitroglycerin 2% oint pkt TOPIC SCH ×3 (06:21→18:00)
--- NOTE | 2020-03-04 07:08 | NUR ---
NURSE HAND-OFF: Important Events on Shift:[pt. with hemodialysis, 2L removed.] Patient Status: awake Diet: renal Pending Orders: na Pending Results/Labs:na Pending MD notification:na Latest Vital Signs: Temperature 99.0 , Pulse 95 , B/P 160 /90 , Respiratory Rate 20 , O2 SAT 95 , Nasal Cannula, O2 Flow Rate 2.0 . Vital Sign Comment: stable Latest Mcconnell Fall Score: 75 Fall Risk: High Risk Safety Measures: Call light Within Reach, Bed Alarm Zone 1, Side Rails Side Rails x3, Bed position Low and Locked. Fall Precautions: Yellow Socks Yellow Gown Door Sign Patient Fall Education Report given to .
[2020-03-04 08:00] VITALS: BP 132/86
--- NOTE | 2020-03-04 08:00 | NUR ---
HAND-OFF: Report given to MARY Aparicio.
--- NOTE | 2020-03-04 08:10 | NUR ---
NURSE NOTES: WALKING ROUNDS DONE WITH NIGHT RN. PATIENT AWAKE HAVING BREAKFAST. QUESTIONS ANSWERED, NEEDS MET. DISCUSSED PLAN OF CARE. VERBALIZED UNDERSTANDING. PATIENT STABLE. BED IN LOW AND LOCKED POSITION. CALL LIGHT WITHIN REACH.
[2020-03-04] MEDS: Aspirin Baby 81mg ORAL SCH (09:00)
--- NOTE | 2020-03-04 11:25 | NUR ---
SENIOR EDUCATION SPECIALIST NOTE FOLLOW UP CALL MADE TO MEGHAN [phone]. S/W MIGUEL A WHO CONFIRMED RECEIPT OF ALL REQUESTED CLINICALS. PER [facility], HEP TOTAL CORE IS ALSO REQUIRED TO SECURE OPT HD.
--- NOTE | 2020-03-04 11:31 | NUR ---
NURSE NOTES: RN received call from BETTY Babb who said she received call from Joce.Joce asks for hepatitis total core(lab). Dr. Munroe agreed to do it and RN requested for service. BETTY is aware.
[2020-03-04 12:00] VITALS: BP 139/81
--- NOTE | 2020-03-04 12:44 | NUR ---
NURSE NOTES: TOTAL HEPATITIS CORE PANEL SPOKE TO DARYL IN LAB CONCERNING THIS LAB DRAW STATED ABOVE. BLOOD DRAWN. NOTED IT IS A SEND OUT TEST TO [facility]. MAY TAKE DAYS TO RESULT. MADE AWARE AND [place].
[2020-03-04] MEDS ORDERED: Mylanta II UD 30ml ORAL PRN (13:00)
[2020-03-04] MEDS ORDERED: LORazepam Inj 2mg/ml 1ml IM SCH (13:00)
--- NOTE | 2020-03-04 14:20 | Surgery Progress Note ---
Surgery Progress Note Subjective Symptoms: passing flatus, BM Additional Comments agitated this morning wants different food wants her meds now no n/v ambulatory Objective Last 24 Hour Vital Signs Date Time Temp Pulse Resp B/P (MAP) Pulse Ox O2 Delivery O2 Flow Rate FiO2 03/04/20 12:00 98.8 86 17 139/81 (100) 97 03/04/20 11:30 98.0 03/04/20 09:00 83 132/86 03/04/20 09:00 132/86 03/04/20 09:00 Room Air 03/04/20 08:00 98.0 83 19 132/86 (101) 96 03/04/20 06:21 160/90 03/04/20 06:21 160/90 03/04/20 06:00 Nasal Cannula 2.0 97 03/04/20 04:00 99.1 95 20 176/98 (124) 95 03/04/20 02:20 Room Air 95 03/04/20 00:00 99.0 91 18 150/84 (106) 95 03/03/20 21:00 Nasal Cannula 1.0 03/03/20 20:00 99.3 94 18 158/90 (112) 95 03/03/20 17:50 94 152/94 03/03/20 17:47 98.4 03/03/20 17:16 152/94 03/03/20 16:00 98.4 94 20 152/94 (113) 96 I&O Intake and Output 03/03/20 03/04/20 19:00 07:00 Intake Total 600 ml 240 ml Balance 600 ml 240 ml Intake Oral 600 ml 240 ml # Voids 3 Cardiovascular: RSR Respiratory: clear Abdomen: soft, present bowel sounds, non-distended Extremities: no tenderness, no cyanosis Laboratory Tests Test 03/04/20 11:30 Miscellaneous Test 2 Pending Plan Problems: (1) Abnormal LFTs Assessment & Plan: Patient identified to have elevated LFTs on admission. Complaints abdominal discomfort. No imaging currently performed. Abdominal ultrasound ordered. Trend labs IV fluids will monitor recommendations with eval uation of medications and serial abdominal exams. Exam is limited due to patient having limited ability to cooperate. Gallbladder demonstrates focal wall thickening and edema, gallbladder wall just over 4 mm thick. There is also small amount of pericholecystic fluid No gallstones. Sonographic Lewis's sign is negative. Common bile duct measures 5 mm in diameter. No intrahepatic biliary ductal dilatation. Liver demonstrates slightly increased echogenicity, no focal abnormality. Portal vein and hepatic veins are patent. Pancreas is unremarkable. Spleen is unremarkable. Left kidney measures 7.7 cm in length. Right kidney measures 8 cm length. Both kidneys demonstrate increased echogenicity There is no hydronephrosis. No focal abnormality . Abdominal aorta is partially obscured by bowel gas, visualized portions are non-aneurysmal . Right pleural effusion incidentally noted Impression: Somewhat limited exam, as described Increased renal echogenicity bilaterally, indicating medical renal disease. Incidental finding of bilateral renal cysts Mildly increased hepatic echogenicity, likely medical renal disease Negative for gallstones. There is focal gallbladder wall thickening and some pericholecystic fluid. This is probably due to edema of systemic causes but the possibility of acalculous acute cholecystitis should also be considered Right pleural effusion Note incompletely visualized distal abdominal aorta (2) Abdominal discomfort Assessment & Plan: No significant bowel distention. Discomfort on palpation asking for pain medications. No nausea vomiting fever chills. Okay for diet as tolerated we will follow with serial exams Thank allowing participation's care (3) Anemia (4) UTI (urinary tract infection) (5) Hypertension (6) ESRF (end stage renal failure) (7) Noncompliance (8) Head injury, acute (9) Cocaine abuse (10) Acute exacerbation of CHF (congestive heart failure) (11) Pain syndrome, chronic (12) Elevated troponin I level Blu Lema Mar 04, 2020 14:20
--- NOTE | 2020-03-04 15:09 | General Progress Note ---
Subjective Date patient seen: Mar 04, 2020 ROS Limited/Unobtainable: Yes Allergies: Coded Allergies: SULFA (SULFONAMIDE ANTIBIOTICS) (Verified Allergy, Unknown, 02/24/20) Subjective No acute events overnight per nursing. Patient more awake today but confused. Altered and not able to answer appropriately though per nurse report, waxes and wanes. Patient reportedly trying to leave hospital at times. Further subjective history unable to be obtained due to ALOC Review of systems: Unable to be obtained due to ALOC Objective Last 24 Hour Vital Signs Date Time Temp Pulse Resp B/P (MAP) Pulse Ox O2 Delivery O2 Flow Rate FiO2 03/04/20 12:00 98.8 86 17 139/81 (100) 97 03/04/20 11:30 98.0 03/04/20 09:00 83 132/86 03/04/20 09:00 132/86 03/04/20 09:00 Room Air 03/04/20 08:00 98.0 83 19 132/86 (101) 96 03/04/20 06:21 160/90 03/04/20 06:21 160/90 03/04/20 06:00 Nasal Cannula 2.0 97 03/04/20 04:00 99.1 95 20 176/98 (124) 95 03/04/20 02:20 Room Air 95 03/04/20 00:00 99.0 91 18 150/84 (106) 95 03/03/20 21:00 Nasal Cannula 1.0 03/03/20 20:00 99.3 94 18 158/90 (112) 95 03/03/20 17:50 94 152/94 03/03/20 17:47 98.4 03/03/20 17:16 152/94 03/03/20 16:00 98.4 94 20 152/94 (113) 96 Intake and Output 03/03/20 03/04/20 19:00 07:00 Intake Total 600 ml 240 ml Balance 600 ml 240 ml Intake Oral 600 ml 240 ml # Voids 3 Laboratory Tests 03/04/20 11:30: Miscellaneous Test 2 [Pending] Height (Feet): 5 Height (Inches): 4.00 Weight (Pounds): 160 Objective General: WDWN female in NAD, Altered. Resting, awake, confused HEENT: Normocephalic cephalic atraumatic, pupils equal round reactive to light and accommodation, nares patent and no symmetrical, no tonsillar exudates, mucous membranes moist CV: Regular rate regular rhythm, no murmurs, rubs, or gallops. HD line C/d/i. Pulm: Lungs clear to auscultation bilaterally. No wheezes, rhonchi, or rales GI: Soft, nontender, nondistended, bowel sounds present Neuro: CN 2-12 intact bilaterally, no focal signs. Moving all extremities Ext: No lower extremity edema bilaterally Skin: no rashes lesions or ulcers Msk: Joints symmetrical in upper extremity and lower extremity bilaterally, no joint swelling. Lymph: No lymphadenopathy in upper extremity and lower extremity Assessment/Plan Assessment/Plan: 74 yo F with PMHX CHF. CKD4, opioid abuser, chronic untraceable pain syndrome, admitted for CHF exacerbation and fluid overload # Acute systolic heart failure exacerbation. # s/p CKD5 # Now ESRD # Acute metabolic encephalopathy - stable - lasix 60mg BID - fluid restriction - HD with Dr. Munroe, need to coordinate care - Discharge pending dialysis center availability - per sample case porterRosio requires hepatitis total core antibody test prior to accepting, test pending - No family or surrogate decision makers available at this time. Patient lacks capacity. Completely altered. Social work consulted. - At this time patient unable to make their own health care decisions. Procedure or treatment is necessary to alleviate severe pain and/or, if not performed, would lead to serious disability or . - patient unable to maker her own health care decision likely due to uremic encephalopathy I also believe HD is necessary to improved her current condition therefore we will proceed with permcath placement as renal replacement therapy is felt to prevent major disability - IR placed HD catheter. - Renal/heart healthy diet #Acute blood loss anemia 2/2 tunneled cath line removal > no further signs of bleeding - PRBC transfusion 02/26 with appropriate response - Patient still unable to consent and no surrogate decision maker available. Agree to proceed due to emergent nature. #Elevated alk phos #elevated GGT > Suspect could be due to hepatic congestion from heart failure - abdominal ultrasound: gallbladder thickening - > D/w Surgery. No suspicion for cholecystitis - Appreciate gen surgery recommendations: D/w Dr. Lema #Acute systolic heart failure exacerbation #Elevated troponin, suspect due to demand ischemia and ESRD. Appreciate cardiology input #essential hypertension - EF 20-25%. Global hypokinesis D/w Cardiology. Ischemia vs. history of cocaine use - asa 81 - Increased benazepril to 40mg Po daily by Cardiology - HD per nephrology - appreciate cardiology recommendations #Urinary tract infection - blood cultures: NGTD - urine culture: mixed results - Rocephin (02/23 - ) # LE edema - US LE to r/o dvt: pending. D/w nursing again who will follow up # Opioid abuse #H/o cocaine abuse - avoid unnecessary narcotic FENPPX DVTPPX: Diet: renal Lines: tunneled line PT/OT: pending Code status: full per policy Dispo: SNF eventually Reason for Continued Hospitalization: ESRD - needs accepting dialysis center - hepatitis total core antibody test pending, encephalopathy MIPS ([employer]-based Incentive Payment System) Applicable CPT: 75742, 51478 CHECK ALL THAT ARE MET: [] Measure #5 (CHF): All ages. Prescribe BLACK/ARB upon discharge for patients with left ventricular systolic dysfunction. If not, the reason is clearly documented in the medical chart .[] Measure #8 (CHF): All ages. Prescribe a beta marlys upon discharge for patients with left ventricular systolic dysfunction. If not, the reason is clearly documented in the medical chart. [x] Measure #47: Advance care plan or surrogate decision maker documented in the medical record. [x] Measure #130 The provider has documented, updated, or reviewed the patients current medication list and has documented it in the patients note. [] Measure #374 (All): Send report to referring provider. [] Measure #407(Sepsis due to MSSA bacteremia): Age 18+ Patient treated with a beta-lactam antibiotic (Nafcillin, Oxacillin or Cefazolin) as definitive therapy. MEDICAL COMPLEXITYHigh complexity medical decision making (need 2/3 categories)Problem - need 4 points [x]Acute/new problem with new plan for workup (4 points, 1 max) [] Acute/new problem without additional workup (3 points, 1 max) [] Unstable chronic problem actively being managed (2 point each, 2 max) [] Stable chronic problem actively being managed (1 point each, 2 max) [] Self-limited/transient process (constipation, muscle ache, etc) (1 point each, 2 max) Data - need 4 points [x] Reviewed labs/imaging studies (1 points, 2 max) [x] Independent review of imaging (EKG, xrays, etc) (2 points, 2 max) [x] Discussed case with consult/other MD/RN (2 points, 2 max) High Risk - qualify if have one of the following: [x] Severe exacerbation of acute problem, acute mental status change, IV narcotics, monitoring drug levels (vancomycin, INR, tacrolimus etc) I spent 35 minutes on this patient's case, and 19 mins was dedicated to counse ling and/or care coordination. Discussed with nephro, Bedside RN, sample case porter Time of note may not reflect time of encounter Boris Marrero M.D. Mar 04, 2020 15:09
--- NOTE | 2020-03-04 15:33 | NUR ---
NURSE NOTES: PATIENT THROUGH OUT THE DAY. SOMEWHAT COMPLIANT AND WOULD BECOME DISRUPTIVE, BELLIGERENT AND USING VULGAR LANGUAGE TOWARDS STAFFING WITH THREATS TO STAFF. SECURITY CALLED TO DE-ESCALATE THE SITUATION. PATIENT REFUSED AM MEDS BUT WOULD ASK FOR MEDS A [place]; WHEN WILLING AND READY TO TAKE AT HER LEISURE. MD MADE AWARE OF ISSUES. CURRENTLY, PATIENT IS MORE COOPERATIVE. WILL CONTINUE TO ASSESS PATIENT NEEDED.
[2020-03-04 16:00] VITALS: BP 131/79
--- NOTE | 2020-03-04 16:58 | Nephrology Progress Note ---
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 #troponemia #CHF #h/o polysubtance abuse, cocaine abuser #HTN #anemia - HD tomorrow - monitor hemoglobin level - cardiology eval - 2D Echo: EF30%, severe pulm HTN with PAP 90mmHg, global and regional wall motion abnormalities - amlodipine 10mg daily - add benazopril 20mg daily - increase 50 TID - continue lasix 60 IV BID for now - ceftriaxone for UTI -continue epo - monitor electrolytes time spent 65 min Subjective ROS Limited/Unobtainable: No Constitutional: Reports: weakness HEENT: Denies: no symptoms, eye pain, blurred vision, tearing, double vision, ear pain, ear discharge, nose pain, nose congestion, throat pain, throat swelling, mouth pain, mouth swelling, other Genitourinary: Denies: no symptoms, burning, discharge, frequency, flank pain, hematuria, incontinence, pain, urgency, other Neurologic/Psychiatric: Denies: no symptoms, anxiety, depressed, emotional p roblems, headache, numbness, paresthesia, pre-existing deficit, seizure, tingling, tremors, weakness, other Subjective hemoglobin stable s/p HD yesterday 2D Echo: EF30%, severe pulm HTN with PAP 90mmHg, global and regional wall motion abnormalities remains confused Objective Objective Last 24 Hour Vital Signs Date Time Temp Pulse Resp B/P (MAP) Pulse Ox O2 Delivery O2 Flow Rate FiO2 03/04/20 16:01 98.8 03/04/20 16:00 98.0 83 18 131/79 (96) 98 03/04/20 15:20 139/81 03/04/20 15:13 139/81 03/04/20 12:00 98.8 86 17 139/81 (100) 97 03/04/20 11:30 98.0 03/04/20 09:00 83 132/86 03/04/20 09:00 132/86 03/04/20 09:00 Room Air 03/04/20 08:00 98.0 83 19 132/86 (101) 96 03/04/20 06:21 160/90 03/04/20 06:21 160/90 03/04/20 06:00 Nasal Cannula 2.0 97 03/04/20 04:00 99.1 95 20 176/98 (124) 03/04/20 02:20 Room Air 95 03/04/20 00:00 99.0 91 18 150/84 (106) 03/03/20 21:00 Nasal Cannula 1.0 03/03/20 20:00 99.3 94 18 158/90 (112) 03/03/20 17:50 94 152/94 03/03/20 17:47 98.4 03/03/20 17:16 152/94 Intake and Output 03/03/20 03/04/20 19:00 07:00 Intake Total 600 ml 240 ml Balance 600 ml 240 ml Intake Oral 600 ml 240 ml # Voids 3 Laboratory Tests 03/04/20 11:30: Miscellaneous Test 2 [Pending] Height (Feet): 5 Height (Inches): 4.00 Weight (Pounds): 160 Ace Munroe M.D. Mar 04, 2020 16:58
--- NOTE | 2020-03-04 19:34 | NUR ---
NURSE HAND-OFF: Important Events on Shift:NON-COMPLIANT WITH TAKING MEDS AT SCHEDULED TIMES. Patient Status: STABLE Diet: REGULAR Pending Orders: DCP TO SNF Pending Results/Labs:HEPATITIS TOTAL CORE TEST ( SEND-OUT TO [facility]) Pending MD notification: Latest Vital Signs: Temperature 98.8 , Pulse 83 , B/P 131 /79 , Respiratory Rate 18 , O2 SAT 98 RA . Vital Sign Comment: STABLE Latest Mcconnell Fall Score: 75 Fall Risk: High Risk Safety Measures: Call light Within Reach, Bed Alarm Zone 1, Side Rails Side Rails x2, Bed position Low and Locked. Fall Precautions: Yellow Socks Door Sign Patient Fall Education Report given to YUSEF Rahman LVN.
[2020-03-04 20:00] VITALS: BP 160/96
--- NOTE | 2020-03-04 20:00 | NUR ---
NURSE NOTES: RECEIVED PATIENT LYING IN BED, AWAKE, ORIENTED X3, VERBALLY RESPONSIVE, NO SIGNS AND SYMPTOMS OF ACUTE CARDIO RESPIRATORY DISTRESS/SHORTNESS OF BREATH, DENIES CHEST PAIN, NO PERIPHERAL EDEMA NOTED. IV INTACT TO RIGHT THUMB/GAUGE 24, FLUSHED FOR PATENCY, TOLERATED WELL. CONTACT/UNIVERSAL PRECAUTIONS OBSERVED AT ALL TIMES. HD RIGHT CHEST PERMACATH INTACT, DRESSING DRY, NO SIGNS OF BLEEDING. NO COMPLAINTS OF GI DISCOMFORT, NO N/V/D, UTILIZING BEDSIDE COMMODE. SIDE RAILS UP X2 FOR MOBILITY, BED IN LOWEST POSITION FOR SAFETY, ENCOURAGED PATIENT TO UTILIZE CALL LIGHT FOR ASSISTANCE, VERBALIZED UNDERSTANDING. NAD. CONTINUE WITH CURRENT PLAN OF CARE.
--- NOTE | 2020-03-04 20:13 | Neurology Progress Note ---
Interim History Interim History ROS Limited/Unobtainable: No Interim History confused, no new focal deficits Objective Physical Exam Last Vital Signs Date Time Temp Pulse Resp B/P (MAP) Pulse Ox O2 Delivery O2 Flow Rate FiO2 03/04/20 19:11 98.8 03/04/20 18:36 83 131/79 03/04/20 16:00 18 98 03/04/20 09:00 Room Air 03/04/20 06:00 2.0 97 Laboratory Tests Test 03/04/20 11:30 03/04/20 17:05 Miscellaneous Test 2 Pending Hepatitis A IgM Antibody Pending Hepatitis A Antibody Total Pending Hepatitis B Surface Antigen Pending Hepatitis B Surface Antibody Pending Hepatitis B Surface Antibody, Quant Pending Hepatitis B Core Total Antibody Pending Hepatitis B Core IgM Antibody Pending Hepatitis Be Antibody Pending Hepatitis Be Antigen Pending Hepatitis C Antibody Pending Head: normocophalic Neck: no rigidity EENT: benign Neurologic Exam Mental Status: awake, alert Cranial Nerve II: visual juarez Cranial Nerves III, IV, : PERRLA, EOMI Cranial Nerve V: normal facial sensations Objective ao x 2 flapping noted tangential non focal Impression/Recommendations Problems: (1) Anemia (2) UTI (urinary tract infection) (3) Hypertension (4) ESRF (end stage renal failure) (5) Noncompliance (6) Head injury, acute (7) Cocaine abuse (8) Acute exacerbation of CHF (congestive heart failure) (9) Pain syndrome, chronic (10) Elevated troponin I level (11) Abdominal discomfort (12) Abnormal LFTs Diagnostic Impression acute encephalopathy, likely uremic agitation tele seroquel 25 mg bid standing HD per nephro PT OT as able no opioids Hay Johnson MD Mar 04, 2020 20:13
--- NOTE | 2020-03-04 22:46 | Cardiology Progress Note ---
Subjective DATE OF SERVICE: Mar 04, 2020 More alert BP parameters much improved. s/p HD/UF 03/02/20 Remains confused but much more alert. 2D Echo: EF30%, severe pulm HTN with PAP 90mmHg, global and regional wall motion abnormalities Objective Last 24 Hour Vital Signs Date Time Temp Pulse Resp B/P (MAP) Pulse Ox O2 Delivery O2 Flow Rate FiO2 03/04/20 22:02 147/91 03/04/20 19:11 98.8 03/04/20 18:36 83 131/79 03/04/20 18:00 131/79 03/04/20 16:01 98.8 03/04/20 16:00 98.0 83 18 131/79 (96) 98 03/04/20 15:20 139/81 03/04/20 15:13 139/81 03/04/20 12:00 98.8 86 17 139/81 (100) 97 03/04/20 11:30 98.0 03/04/20 09:00 83 132/86 03/04/20 09:00 132/86 03/04/20 09:00 Room Air 03/04/20 08:00 98.0 83 19 132/86 (101) 96 03/04/20 06:21 160/90 03/04/20 06:21 160/90 03/04/20 06:00 Nasal Cannula 2.0 97 03/04/20 04:00 99.1 95 20 176/98 (124) 95 03/04/20 02:20 Room Air 95 03/04/20 00:00 99.0 91 18 150/84 (106) 95 ROS: unchanged from my assessment of 02/25/20 HEENT: normal ENT inspection RHYTHM: NSR, ST LUNGS: diminished breath sounds, rales bilaterally - few, other - Right chest wall cath site with no active bleeding CARDIAC: normal rate, regular rhythm, normal S1 and S2, systolic murmur - 2/6 systolic murmur at LLSB, gallop/S4 ABDOMEN: normal bowel sounds, non tender, soft, no organomegaly EXTREMITIES: normal range of motion, non-tender, +1 edema Laboratory Tests Test 03/04/20 11:30 03/04/20 17:05 Miscellaneous Test 2 Pending Hepatitis A IgM Antibody Pending Hepatitis A Antibody Total Pending Hepatitis B Surface Antigen Pending Hepatitis B Surface Antibody Pending Hepatitis B Surface Antibody, Quant Pending Hepatitis B Core Total Antibody Pending Hepatitis B Core IgM Antibody Pending Hepatitis Be Antibody Pending Hepatitis Be Antigen Pending Hepatitis C Antibody Pending Assessment/Plan Assessment/Plan Metabolic encephalopathy ESRD Acute myocardial ischemia/possible NSTE myocardial infarction Ischemic and cocaine cardiomyopathy Severe pulmonary hypertension Acute on chronic systolic CHF Hypertensive urgency resikved Anemia of CKD Hypomagnesemia HD/UF tomorrow. Nitrates PRBC tx Anti-plt therapy Maximizing antiHTN and anti-failure regimen further, including ACEi since diagnosed with ESRD Epo/Fe++; consider PRBC transfusion Magnesium replacement as needed Sourav Montejo MD Mar 04, 2020 22:46
[2020-03-05] VITALS: BP 165/91
[2020-03-05] MEDS: LORazepam Inj 2mg/ml 1ml IV PRN (00:12)
[2020-03-05] MEDS: Morphine Sulfate 2mg/ml Inj(IV/IM USE ONLY) IVP PRN ×4 (03:10→11:00)
[2020-03-05 04:00] VITALS: BP 162/89
[2020-03-05] MEDS: Nitroglycerin 2% oint pkt TOPIC SCH ×3 (05:40→17:38)
[2020-03-05] MEDS: HydrALAZINE 50mg tab ORAL SCH ×3 (05:41→22:00)
[2020-03-05] MEDS: Heparin 5000 units/ml inj SUBQ SCH ×3 (05:42→21:26)
--- NOTE | 2020-03-05 07:59 | NUR ---
NURSE NOTES: Patient awake, alert x4; on nasal cannula 2 Liters, no sing of distress and shortness of breath; no sign of chest pain; IV Right Thumb flushes well; bed side Commode within reach; patient keep coming out of the room, are not willing to put her mask on; also asking pain medication before the due time; however patient told and teaching given regarding the COVID-19 pandemic and patient needs to put her mask for her safety and the staff safety; side rials up x2, breaks engaged, bed at lowest position; call light within reach; will keep monitoring.
[2020-03-05 08:00] VITALS: BP 128/68
--- NOTE | 2020-03-05 08:00 | NUR ---
CHARGE NURSE NOTE: Pt is agitated, staying at the nursing station in the hosp.chair,yelling, cursing, demanding pain med (pain med was given 1 hr ago), (refusing morning meds), does not want to go to her room. Security was called, pt still does not follow the rules. Nursing tool supervisor Misook notified. will be notified.
--- NOTE | 2020-03-05 08:03 | NUR ---
NURSE HAND-OFF: Important Events on Shift:[PATIENT VERY NON COMPLIANT WITH PLAN OF CARE, SPECIFICALLY MEDICATION, REFUSED AM LABS] Patient Status: [STABLE] Diet: [REGULAR MS THIN LIQUID] Pending Orders: [DISCHARGE PLAN TO SNF / HEPATITIS TOTAL CORE TEST/SEND OUT TO LAB] Pending Results/Labs:[N/A] Pending MD notification:[] Latest Vital Signs: Temperature 98.4 , Pulse 94 , B/P 149 /106 , Respiratory Rate 18 , O2 SAT 92 , Nasal Cannula, O2 Flow Rate 2.0 . Vital Sign Comment: [HYPERTENSIVE, REFUSED PRN'S] Latest Mcconnell Fall Score: 75 Fall Risk: High Risk Safety Measures: Call light Within Reach, Bed Alarm Zone 1, Side Rails Side Rails x2, Bed position Low and Locked. Fall Precautions: Yellow Socks Door Sign Patient Fall Education Report given to [MARY VILLEGAS].
[2020-03-05 09:19] LABS: EOSINOPHILS % (AUTO) 5.6 % (0.0-3.0); HEMATOCRIT 27.4 % (37.0-47.0); HEMOGLOBIN 8.8 G/DL (12.0-16.0); LYMPHOCYTES % (AUTO) 21.3 % (20.0-45.0); MEAN CORPUSCULAR VOLUME 90 FL (80-99); MONOCYTES % (AUTO) 12.1 % (1.0-10.0); NEUTROPHILS % (AUTO) 59.1 % (45.0-75.0); PLATELET COUNT 123 K/UL (150-450); RED BLOOD COUNT 3.05 M/UL (4.20-5.40); RED CELL DISTRIBUTION WIDTH 15.7 % (11.6-14.8); WHITE BLOOD COUNT 7.4 K/UL (4.8-10.8)
[2020-03-05 09:27] LABS: CALCIUM 8.4 MG/DL (8.5-10.1); CREATININE 3.6 MG/DL (0.55-1.30); POTASSIUM 4.1 MMOL/L (3.5-5.1)
[2020-03-05] MEDS: Aspirin Baby 81mg ORAL SCH (09:54)
--- NOTE | 2020-03-05 10:15 | NUR ---
NURSE NOTES: Patient requested pain medication; Morphine 2mg pulled out of [facility]; after medication prepared to administer it; patient's IV wasn't working; the whole medication Morphine 2 mg wasted on the [facility] and also in the med room;
--- NOTE | 2020-03-05 10:42 | Nephrology Progress Note ---
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 #troponemia #CHF #h/o polysubtance abuse, cocaine abuser #HTN #anemia - HD today - monitor hemoglobin level - cardiology eval - 2D Echo: EF30%, severe pulm HTN with PAP 90mmHg, global and regional wall motion abnormalities - amlodipine 10mg daily - add benazopril 20mg daily - increase 50 TID - continue lasix 60 IV BID for now - ceftriaxone for UTI -continue epo - monitor electrolytes time spent 65 min Subjective ROS Limited/Unobtainable: No Constitutional: Reports: weakness HEENT: Denies: no symptoms, eye pain, blurred vision, tearing, double vision, ear pain, ear discharge, nose pain, nose congestion, throat pain, throat swelling, mouth pain, mouth swelling, other Genitourinary: Denies: no symptoms, burning, discharge, frequency, flank pain, hematuria, incontinence, pain, urgency, other Neurologic/Psychiatric: Denies: no symptoms, anxiety, depressed, emotional prob lems, headache, numbness, paresthesia, pre-existing deficit, seizure, tingling, tremors, weakness, other Subjective hemoglobin stable agitated at times plan for HD today 2D Echo: EF30%, severe pulm HTN with PAP 90mmHg, global and regional wall motion abnormalities remains confused Objective Objective Last 24 Hour Vital Signs Date Time Temp Pulse Resp B/P (MAP) Pulse Ox O2 Delivery O2 Flow Rate FiO2 03/05/20 09:54 84 128/68 03/05/20 09:54 128/68 03/05/20 08:00 97.0 84 19 128/68 (88) 97 03/05/20 07:19 98.4 03/05/20 05:41 149/106 03/05/20 05:40 149/106 03/05/20 04:00 98.4 94 18 162/89 (113) 92 03/05/20 03:40 98.7 03/05/20 00:42 72 18 141/82 96 03/05/20 00:12 80 18 147/91 97 03/05/20 00:00 98.5 93 18 165/91 (115) 93 03/04/20 22:15 98.7 03/04/20 22:02 147/91 03/04/20 21:00 Room Air 03/04/20 20:00 98.7 98 20 160/96 (117) 96 03/04/20 19:11 98.8 03/04/20 18:36 83 131/79 03/04/20 18:00 131/79 03/04/20 16:01 98.8 03/04/20 16:00 98.0 83 18 131/79 (96) 98 03/04/20 15:20 139/81 03/04/20 15:13 139/81 03/04/20 12:00 98.8 86 17 139/81 (100) 97 03/04/20 11:30 98.0 Intake and Output 03/04/20 03/05/20 19:00 07:00 Intake Total 600 ml Output Total 250 ml Balance 600 ml -250 ml Other 600 ml Output Urine Total 250 ml # Voids 2 Laboratory Tests 03/04/20 11:30: Miscellaneous Test 2 [Pending] 03/04/20 17:05: Hepatitis A IgM Antibody PositiveH, Hepatitis A Antibody Total PositiveH, Hepati tis B Surface Antigen Negative, Hepatitis B Surface Antibody Reactive, Hepatitis B Surface Antibody, Quant [Pending], Hepatitis B Core Total Antibody Negative, Hepatitis B Core IgM Antibody Negative, Hepatitis Be Antibody [Pending], Hepatitis Be Antigen Negative, Hepatitis C Antibody <0.1 03/05/20 09:00: White Blood Count 7.4, Red Blood Count 3.05L, Hemoglobin 8.8L, Hematocrit 27.4L, Mean Corpuscular Volume 90, Mean Corpuscular Hemoglobin 29.0, Mean Corpuscular Hemoglobin Concent 32.3, Red Cell Distribution Width 15.7H, Platelet Count 123L, Mean Platelet Volume 9.4, Neutrophils (%) (Auto) 59.1, Lymphocytes (%) (Auto) 21.3, Monocytes (%) (Auto) 12.1H, Eosinophils (%) (Auto) 5.6H, Basophils (%) (Auto) 2.0, Sodium Level 139, Potassium Level 4.1, Chloride Level 103, Carbon Dioxide Level 29, Anion Gap 7, Blood Urea Nitrogen 53H, Creatinine 3.6H, Estimat Glomerular Filtration Rate 12.4, Glucose Level 117H, Calcium Level 8.4L Height (Feet): 5 Height (Inches): 4.00 Weight (Pounds): 160 Pirouz,Aslan M.D. Mar 05, 2020 10:42
--- NOTE | 2020-03-05 11:05 | NUR ---
HAND-OFF: Report given to MARY Conteh.
--- NOTE | 2020-03-05 11:12 | NUR ---
NURSE NOTES: Received report from MARY Ruiz. Patient seen on wheel chair hanging around nursing station, AAOx3, hard of hearing, able to make needs known. patient on room air, breathing is even and unlabored with no SOB noted at this time. patient is very uncooperative with care, refuses to stay in room and loiters around nursing station. Patient has very disruptive behavior. Patient uses walker and wheel chair to do ADL's. Bed side commode present in room. RN communicates with patient via paper and pen. Bed is locked and placed in lowest position. Call light within reach. Will continue to monitor
[2020-03-05] MEDS ORDERED: DiphenhydrAMINE 50mg/ml Inj IM SCH ×2 (11:15→19:32)
[2020-03-05] MEDS ORDERED: Haloperidol 5mg/ml Inj IM SCH ×2 (11:15→19:45)
[2020-03-05] MEDS ORDERED: LORazepam Inj 2mg/ml 1ml IM SCH ×2 (11:15→19:33)
--- NOTE | 2020-03-05 11:30 | Surgery Progress Note ---
Surgery Progress Note Subjective Additional Comments no acute events Objective Last 24 Hour Vital Signs Date Time Temp Pulse Resp B/P (MAP) Pulse Ox O2 Delivery O2 Flow Rate FiO2 03/05/20 09:54 84 128/68 03/05/20 09:54 128/68 03/05/20 09:00 Room Air 03/05/20 08:00 97.0 84 19 128/68 (88) 97 03/05/20 07:19 98.4 03/05/20 05:41 149/106 03/05/20 05:40 149/106 03/05/20 04:00 98.4 94 18 162/89 (113) 92 03/05/20 03:40 98.7 03/05/20 00:42 72 18 141/82 96 03/05/20 00:12 80 18 147/91 97 03/05/20 00:00 98.5 93 18 165/91 (115) 93 03/04/20 22:15 98.7 03/04/20 22:02 147/91 03/04/20 21:00 Room Air 03/04/20 20:00 98.7 98 20 160/96 (117) 96 03/04/20 19:11 98.8 03/04/20 18:36 83 131/79 03/04/20 18:00 131/79 03/04/20 16:01 98.8 03/04/20 16:00 98.0 83 18 131/79 (96) 98 03/04/20 15:20 139/81 03/04/20 15:13 139/81 03/04/20 12:00 98.8 86 17 139/81 (100) 97 I&O l Intake and Output 03/04/20 03/05/20 19:00 07:00 Intake Total 600 ml Output Total 250 ml Balance 600 ml -250 ml Other 600 ml Output Urine Total 250 ml # Voids 2 Cardiovascular: RSR Respiratory: decreased breath sounds Abdomen: non-tender, present bowel sounds, non-distended Extremities: no tenderness, no cyanosis Laboratory Tests Test 03/04/20 17:05 03/05/20 09:00 Hepatitis A IgM Antibody Positive (Negative) H Hepatitis A Antibody Total Positive (Negative) H Hepatitis B Surface Antigen Negative (Negative) Hepatitis B Surface Antibody Reactive (.) Hepatitis B Surface Antibody, Quant Pending Hepatitis B Core Total Antibody Negative (Negative) Hepatitis B Core IgM Antibody Negative (Negative) Hepatitis Be Antibody Pending Hepatitis Be Antigen Negative (Negative) Hepatitis C Antibody <0.1 s/co ratio White Blood Count 7.4 K/UL (4.8-10.8) Red Blood Count 3.05 M/UL (4.20-5.40) L Hemoglobin 8.8 G/DL (12.0-16.0) L Hematocrit 27.4 % (37.0-47.0) L Mean Corpuscular Volume 90 FL (80-99) Mean Corpuscular Hemoglobin 29.0 PG (27.0-31.0) Mean Corpuscular Hemoglobin Concent 32.3 G/DL (32.0-36.0) Red Cell Distribution Width 15.7 % (11.6-14.8) H Platelet Count 123 K/UL (150-450) L Mean Platelet Volume 9.4 FL (6.5-10.1) Neutrophils (%) (Auto) 59.1 % (45.0-75.0) Lymphocytes (%) (Auto) 21.3 % (20.0-45.0) Monocytes (%) (Auto) 12.1 % (1.0-10.0) H Eosinophils (%) (Auto) 5.6 % (0.0-3.0) H Basophils (%) (Auto) 2.0 % (0.0-2.0) Sodium Level 139 MMOL/L (136-145) Potassium Level 4.1 MMOL/L (3.5-5.1) Chloride Level 103 MMOL/L (98-107) Carbon Dioxide Level 29 MMOL/L (21-32) Anion Gap 7 mmol/L (5-15) Blood Urea Nitrogen 53 mg/dL (7-18) H Creatinine 3.6 MG/DL (0.55-1.30) H Estimat Glomerular Filtration Rate 12.4 mL/min (>60) Glucose Level 117 MG/DL (74-106) H Calcium Level 8.4 MG/DL (8.5-10.1) L Plan Problems: (1) Abnormal LFTs Assessment & Plan: Patient identified to have elevated LFTs on admission. Complaints abdominal discomfort. No imaging currently performed. Abdominal ultrasound ordered. Trend labs IV fluids will monitor recommendations with evaluation of medications and serial abdominal exams. Exam is limited due to patient having limited ability to cooperate. Gallbladder demonstrates focal wall thickening and edema, gallbladder wall just over 4 mm thick. There is also small amount of pericholecystic fluid No gallstones. Sonographic Lewis's sign is negative. Common bile duct measures 5 mm in diameter. No intrahepatic biliary ductal dilatation. Liver demonstrates slightly increased echogenicity, no focal abnormality. Portal vein and hepatic veins are patent. Pancreas is unremarkable. Spleen is unremarkable. Left kidney measures 7.7 cm in length. Right kidney measures 8 cm length. Both kidneys demonstrate increased echogenicity There is no hydronephrosis. No focal abnormality . Abdominal aorta is partially obscured by bowel gas, visualized portions are non-aneurysmal . Right pleural effusion incidentally noted Impression: Somewhat limited exam, as described Increased renal echogenicity bilaterally, indicating medical renal disease. Incidental finding of bilateral renal cysts Mildly increased hepatic echogenicity, likely medical renal disease Negative for gallstones. There is focal gallbladder wall thickening and some pericholecystic fluid. This is probably due to edema of systemic causes but the possibility of acalculous acute cholecystitis should also be considered Right pleural effusion Note incompletely visualized distal abdominal aorta (2) Abdominal discomfort Assessment & Plan: No significant bowel distention. Discomfort on palpation asking for pain medications. No nausea vomiting fever chills. Okay for diet as tolerated we will follow with serial exams Thank allowing participation's care (3) Anemia (4) UTI (urinary tract infection) (5) Hypertension (6) ESRF (end stage renal failure) (7) Noncompliance (8) Head injury, acute (9) Cocaine abuse (10) Acute exacerbation of CHF (congestive heart failure) (11) Pain syndrome, chronic (12) Elevated troponin I level Blu Lema Mar 05, 2020 11:30
[2020-03-05 12:00] VITALS: BP 143/73
--- NOTE | 2020-03-05 14:43 | General Progress Note ---
Subjective Date patient seen: Mar 05, 2020 ROS Limited/Unobtainable: Yes Allergies: Coded Allergies: SULFA (SULFONAMIDE ANTIBIOTICS) (Verified Allergy, Unknown, 02/24/20) Subjective Patient reportedly agitated and disruptive to nursing staff yesterday. Patient awake but altered and unhappy, not answering questions appropriately. Further subjective history unable to be obtained due to ALOC Review of systems: Unable to be obtained due to ALOC Objective Last 24 Hour Vital Signs Date Time Temp Pulse Resp B/P (MAP) Pulse Ox O2 Delivery O2 Flow Rate FiO2 03/05/20 13:13 126/70 03/05/20 12:23 80 19 126/70 97 03/05/20 12:00 96.9 77 18 143/73 (96) 96 03/05/20 11:53 84 19 128/68 97 03/05/20 11:53 132/72 03/05/20 11:30 97.0 03/05/20 09:54 84 128/68 03/05/20 09:54 128/68 03/05/20 09:00 Room Air 03/05/20 08:00 97.0 84 19 128/68 (88) 97 03/05/20 07:19 98.4 03/05/20 05:41 149/106 03/05/20 05:40 149/106 03/05/20 04:00 98.4 94 18 162/89 (113) 92 03/05/20 03:40 98.7 03/05/20 00:42 72 18 141/82 96 03/05/20 00:12 80 18 147/91 97 03/05/20 00:00 98.5 93 18 165/91 (115) 93 03/04/20 22:15 98.7 03/04/20 22:02 147/91 03/04/20 21:00 Room Air 03/04/20 20:00 98.7 98 20 160/96 (117) 96 03/04/20 19:11 98.8 03/04/20 18:36 83 131/79 03/04/20 18:00 131/79 03/04/20 16:01 98.8 03/04/20 16:00 98.0 83 18 131/79 (96) 98 03/04/20 15:20 139/81 03/04/20 15:13 139/81 Intake and Output 03/04/20 03/05/20 19:00 07:00 Intake Total 600 ml Output Total 250 ml Balance 600 ml -250 ml Other 600 ml Output Urine Total 250 ml # Voids 2 Laboratory Tests 03/04/20 17:05: Hepatitis A IgM Antibody PositiveH, Hepatitis A Antibody Total PositiveH, Hepatitis B Surface Antigen Negative, Hepatitis B Surface Antibody Reactive, Hepatitis B Surface Antibody, Quant [Pending], Hepatitis B Core Total Antibody Negative, Hepatitis B Core IgM Antibody Negative, Hepatitis Be Antibody [Pending], Hepatitis Be Antigen Negative, Hepatitis C Antibody <0.1 03/05/20 09:00: White Blood Count 7.4, Red Blood Count 3.05L, Hemoglobin 8.8L, Hematocrit 27.4L, Mean Corpuscular Volume 90, Mean Corpuscular Hemoglobin 29.0, Mean Corpuscular Hemoglobin Concent 32.3, Red Cell Distribution Width 15.7H, Platelet Count 123L, Mean Platelet Volume 9.4, Neutrophils (%) (Auto) 59.1, Lymphocytes (%) (Auto) 21.3, Monocytes (%) (Auto) 12.1H, Eosinophils (%) (Auto) 5.6H, Basophils (%) (Auto) 2.0, Sodium Level 139, Potassium Level 4.1, Chloride Level 103, Carbon Dioxide Level 29, Anion Gap 7, Blood Urea Nitrogen 53H, Creatinine 3.6H, Estimat Glomerular Filtration Rate 12.4, Glucose Level 117H, Calcium Level 8.4L Height (Feet): 5 Height (Inches): 4.00 Weight (Pounds): 160 Objective General: WDWN female in NAD, Altered. Resting, awake, confused, uncooperative HEENT: Normocephalic cephalic atraumatic, pupils equal round reactive to light and accommodation, nares patent and no symmetrical, no tonsillar exudates, mucous membranes moist CV: Regular rate regular rhythm, no murmurs, rubs, or gallops. HD line C/d/i. Pulm: Lungs clear to auscultation bilaterally. No wheezes, rhonchi, or rales GI: Soft, nontender, nondistended, bowel sounds present Neuro: CN 2-12 intact bilaterally, no focal signs. Moving all extremities Ext: No lower extremity edema bilaterally Skin: no rashes lesions or ulcers Msk: Joints symmetrical in upper extremity and lower extremity bilaterally, no joint swelling. Lymph: No lymphadenopathy in upper extremity and lower extremity Assessment/Plan Assessment/Plan: 74 yo F with PMHX CHF. CKD4, opioid abuser, chronic untraceable pain syndrome, admitted for CHF exacerbation and fluid overload # Acute systolic heart failure exacerbation. # s/p CKD5 # Now ESRD # Acute metabolic encephalopathy - stable - lasix 60mg BID - fluid restriction - HD with Dr. Munroe, need to coordinate care - Discharge pending dialysis center availability - per caseworker protective services, [facility] requires hepatitis total core antibody test prior to accepting, test pending - No family or surrogate decision makers available at this time. Patient lacks capacity. Completely altered. Social work consulted. - At this time patient unable to make their own health care decisions. Procedure or treatment is necessary to alleviate severe pain and/or, if not performed, would lead to serious disability or . - patient unable to maker her own health care decision likely due to uremic encephalopathy I also believe HD is necessary to improved her current condition therefore we will proceed with permcath placement as renal replacement therapy is felt to prevent major disability - IR placed HD catheter. - Renal/heart healthy diet #Acute blood loss anemia 2/2 tunneled cath line removal > no further signs of bleeding - PRBC transfusion 02/26 with appropriate response - Patient still unable to consent and no surrogate decision maker available. Agree to proceed due to emergent nature. #Elevated alk phos #elevated GGT > Suspect could be due to hepatic congestion from heart failure - abdominal ultrasound: gallbladder thickening - > D/w Surgery. No suspicion for cholecystitis - Appreciate gen surgery recommendations: D/w Dr. Lema #Acute systolic heart failure exacerbation #Elevated troponin, suspect due to demand ischemia and ESRD. Appreciate cardiology input #essential hypertension - EF 20-25%. Global hypokinesis D/w Cardiology. Ischemia vs. history of cocaine use - asa 81 - Increased benazepril to 40mg Po daily by Cardiology - HD per nephrology - appreciate cardiology recommendations #Urinary tract infection - blood cultures: NGTD - urine culture: mixed results - Rocephin (02/23 - ) # LE edema - US LE to r/o dvt: pending. D/w nursing again who will follow up # Opioid abuse #H/o cocaine abuse - avoid unnecessary narcotic FENPPX DVTPPX: Diet: renal Lines: tunneled line PT/OT: pending Code status: full per policy Dispo: SNF eventually Reason for Continued Hospitalization: ESRD - needs accepting dialysis center - hepatitis total core antibody test pending (test is sent out to outside lab so may take several days), encephalopathy. MIPS ([employer]centive Payment System) Applicable CPT: 95964, 59218 CHECK ALL THAT ARE MET: [] Measure #5 (CHF): All ages. Prescribe BLACK/ARB upon discharge for patients with left ventricular systolic dysfunction. If not, the reason is clearly documented in the medical chart .[] Measure #8 (CHF): All ages. Prescribe a beta marlys upon discharge for patients with left ventricular systolic dysfunction. If not, the reason is clearly documented in the medical chart. [x] Measure #47: Advance care plan or surrogate decision maker documented in the medical record. [x] Measure #130 The provider has documented, updated, or reviewed the patients current medication list and has documented it in the patients note. [] Measure #374 (All): Send report to referring provider. [] Measure #407(Sepsis due to MSSA bacteremia): Age 18+ Patient treated with a beta-lactam antibiotic (Nafcillin, Oxacillin or Cefazolin) as definitive th erapy. MEDICAL COMPLEXITYHigh complexity medical decision making (need 2/3 categories)Problem - need 4 points [x]Acute/new problem with new plan for workup (4 points, 1 max) [] Acute/new problem without additional workup (3 points, 1 max) [] Unstable chronic problem actively being managed (2 point each, 2 max) [] Stable chronic problem actively being managed (1 point each, 2 max) [] Self-limited/transient process (constipation, muscle ache, etc) (1 point each, 2 max) Data - need 4 points [x] Reviewed labs/imaging studies (1 points, 2 max) [x] Independent review of imaging (EKG, xrays, etc) (2 points, 2 max) [x] Discussed case with consult/other MD/RN (2 points, 2 max) High Risk - qualify if have one of the following: [x] Severe exacerbation of acute problem, acute mental status change, IV narcotics, monitoring drug levels (vancomycin, INR, tacrolimus etc) I spent 35 minutes on this patient's case, and 19 mins was dedicated to counseling and/or care coordination. Discussed with nephro, Bedside RN, caseworker protective services Time of note may not reflect time of encounter Boris Marrero M.D. Mar 05, 2020 14:43
--- NOTE | 2020-03-05 19:28 | NUR ---
NURSE HAND-OFF: Important Events on Shift:Disruptive behavior, Cocktail medication given Patient Status: stable Diet: regular mech. soft chopped Pending Orders: n/a Pending Results/Labs:n/a Pending MD notification:n/a Latest Vital Signs: Temperature 96.9 , Pulse 80 , B/P 126 /70 , Respiratory Rate 19 , O2 SAT 97 , Nasal Cannula, O2 Flow Rate 2.0 . Vital Sign Comment: stable Latest Mcconnell Fall Score: 75 Fall Risk: High Risk Safety Measures: Call light Within Reach, Bed Alarm Zone 1, Side Rails Side Rails x2, Bed position Low and Locked. Fall Precautions: Yellow Socks Door Sign Patient Fall Education Report given to MARY Larios.
[2020-03-05] MEDS ORDERED: Haloperidol Decanoate (Long Acting) 50mg Inj IM ONE (19:30)
--- NOTE | 2020-03-05 19:30 | NUR ---
NURSE NOTES: received report from jessica martinez. patient screaming and yelling on her wheelchair near the station. alert and oriented x2 with multiple episodes of forgetfulness. on room air, sating 95%. per juan, " she has disruptive behavior to the staff; dr. chopra is aware and gave orders". denies any pain or discomfort. bed locked and in lowest position. call light and light button within easy reach. paged dr. chopra for further orders. will continue plan of care.
[2020-03-05] MEDS ORDERED: Haloperidol 5mg/ml Inj IM ONE (19:45)
--- NOTE | 2020-03-05 19:50 | NUR ---
NURSE NOTES: received orders from dr. chopra; noted and carried out. charge nurse made aware.
[2020-03-05 20:00] VITALS: BP 124/76
--- NOTE | 2020-03-05 20:51 | Neurology Progress Note ---
Interim History Interim History ROS Limited/Unobtainable: Yes Interim History somnolent today, wa agitated overnight didnt sleep Objective Physical Exam Last Vital Signs Date Time Temp Pulse Resp B/P (MAP) Pulse Ox O2 Delivery O2 Flow Rate FiO2 03/05/20 19:48 79 20 124/73 98 03/05/20 12:00 96.9 03/05/20 09:00 Room Air 03/04/20 06:00 2.0 97 Laboratory Tests Test 03/05/20 09:00 White Blood Count 7.4 K/UL (4.8-10.8) Red Blood Count 3.05 M/UL (4.20-5.40) L Hemoglobin 8.8 G/DL (12.0-16.0) L Hematocrit 27.4 % (37.0-47.0) L Mean Corpuscular Volume 90 FL (80-99) Mean Corpuscular Hemoglobin 29.0 PG (27.0-31.0) Mean Corpuscular Hemoglobin Concent 32.3 G/DL (32.0-36.0) Red Cell Distribution Width 15.7 % (11.6-14.8) H Platelet Count 123 K/UL (150-450) L Mean Platelet Volume 9.4 FL (6.5-10.1) Neutrophils (%) (Auto) 59.1 % (45.0-75.0) Lymphocytes (%) (Auto) 21.3 % (20.0-45.0) Monocytes (%) (Auto) 12.1 % (1.0-10.0) H Eosinophils (%) (Auto) 5.6 % (0.0-3.0) H Basophils (%) (Auto) 2.0 % (0.0-2.0) Sodium Level 139 MMOL/L (136-145) Potassium Level 4.1 MMOL/L (3.5-5.1) Chloride Level 103 MMOL/L (98-107) Carbon Dioxide Level 29 MMOL/L (21-32) Anion Gap 7 mmol/L (5-15) Blood Urea Nitrogen 53 mg/dL (7-18) H Creatinine 3.6 MG/DL (0.55-1.30) H Estimat Glomerular Filtration Rate 12.4 mL/min (>60) Glucose Level 117 MG/DL (74-106) H Calcium Level 8.4 MG/DL (8.5-10.1) L Head: normocophalic Neck: no rigidity EENT: benign Neurologic Exam Mental Status: awake, alert Cranial Nerve II: visual juarez Cranial Nerves III, IV, : PERRLA, EOMI Cranial Nerve V: normal facial sensations Objective ao x 2 flapping noted tangential non focal Impression/Recommendations Problems: (1) Anemia (2) UTI (urinary tract infection) (3) Hypertension (4) ESRF (end stage renal failure) (5) Noncompliance (6) Head injury, acute (7) Cocaine abuse (8) Acute exacerbation of CHF (congestive heart failure) (9) Pain syndrome, chronic (10) Elevated troponin I level (11) Abdominal discomfort (12) Abnormal LFTs Diagnostic Impression acute encephalopathy, likely uremic agitation tele seroquel 25 mg bid standing HD per nephro PT OT as able no opioids Hay Johnson MD Mar 05, 2020 20:51
[2020-03-05] MEDS: Epoetin Alfa-EPBX(ESRD on dialysis)4000 units/ml vial SUBQ SCH (20:56)
--- NOTE | 2020-03-06 02:37 | Cardiology Progress Note ---
Subjective DATE OF SERVICE: Mar 05, 2020 No new complaints; more alert BP parameters remain stable. Last Dialysis was 03/03/20 2D Echo: EF 30%, severe pulm HTN with PAP 90mmHg, global and regional wall motion abnormalities Objective Last 24 Hour Vital Signs Date Time Temp Pulse Resp B/P (MAP) Pulse Ox O2 Delivery O2 Flow Rate FiO2 03/05/20 21:00 Room Air 03/05/20 20:18 73 20 120/70 99 03/05/20 20:00 97.5 87 19 124/76 (92) 98 03/05/20 19:48 79 20 124/73 98 03/05/20 17:38 80 126/70 03/05/20 17:38 126/70 03/05/20 13:13 126/70 03/05/20 12:23 80 19 126/70 97 03/05/20 12:00 96.9 77 18 143/73 (96) 96 03/05/20 11:53 84 19 128/68 97 03/05/20 11:53 132/72 03/05/20 11:30 97.0 03/05/20 09:54 84 128/68 03/05/20 09:54 128/68 03/05/20 09:00 Room Air 03/05/20 08:00 97.0 84 19 128/68 (88) 97 03/05/20 07:19 98.4 03/05/20 05:41 149/106 03/05/20 05:40 149/106 03/05/20 04:00 98.4 94 18 162/89 (113) 92 03/05/20 03:40 98.7 ROS: unchanged from my assessment of 02/25/20 HEENT: normal ENT inspection RHYTHM: NSR, ST LUNGS: diminished breath sounds, rales bilaterally - few, other - Right chest wall cath site with no active bleeding CARDIAC: normal rate, regular rhythm, normal S1 and S2, systolic murmur - 2/6 systolic murmur at LLSB, gallop/S4 ABDOMEN: normal bowel sounds, non tender, soft, no organomegaly EXTREMITIES: normal range of motion, non-tender, +1 edema Laboratory Tests Test 03/05/20 09:00 White Blood Count 7.4 K/UL (4.8-10.8) Red Blood Count 3.05 M/UL (4.20-5.40) L Hemoglobin 8.8 G/DL (12.0-16.0) L Hematocrit 27.4 % (37.0-47.0) L Mean Corpuscular Volume 90 FL (80-99) Mean Corpuscular Hemoglobin 29.0 PG (27.0-31.0) Mean Corpuscular Hemoglobin Concent 32.3 G/DL (32.0-36.0) Red Cell Distribution Width 15.7 % (11.6-14.8) H Platelet Count 123 K/UL (150-450) L Mean Platelet Volume 9.4 FL (6.5-10.1) Neutrophils (%) (Auto) 59.1 % (45.0-75.0) Lymphocytes (%) (Auto) 21.3 % (20.0-45.0) Monocytes (%) (Auto) 12.1 % (1.0-10.0) H Eosinophils (%) (Auto) 5.6 % (0.0-3.0) H Basophils (%) (Auto) 2.0 % (0.0-2.0) Sodium Level 139 MMOL/L (136-145) Potassium Level 4.1 MMOL/L (3.5-5.1) Chloride Level 103 MMOL/L (98-107) Carbon Dioxide Level 29 MMOL/L (21-32) Anion Gap 7 mmol/L (5-15) Blood Urea Nitrogen 53 mg/dL (7-18) H Creatinine 3.6 MG/DL (0.55-1.30) H Estimat Glomerular Filtration Rate 12.4 mL/min (>60) Glucose Level 117 MG/DL (74-106) H Calcium Level 8.4 MG/DL (8.5-10.1) L Assessment/Plan Assessment/Plan Metabolic encephalopathy ESRD Acute myocardial ischemia/possible NSTE myocardial infarction Ischemic and cocaine cardiomyopathy Severe pulmonary hypertension Acute on chronic systolic CHF Hypertensive urgency resikved Anemia of CKD Hypomagnesemia HD/UF today. Nitrates PRBC tx Anti-plt therapy Maximizing antiHTN and anti-failure regimen further, including ACEi since diagnosed with ESRD Epo/Fe++; consider PRBC transfusion Magnesium replacement as needed Sourav Montejo MD Mar 06, 2020 02:37
[2020-03-06 04:00] VITALS: BP 130/74
[2020-03-06] MEDS: Heparin 5000 units/ml inj SUBQ SCH ×4 (05:03→22:00)
[2020-03-06] MEDS: Nitroglycerin 2% oint pkt TOPIC SCH ×3 (06:00→17:29)
[2020-03-06] MEDS: HydrALAZINE 50mg tab ORAL SCH ×3 (06:00→21:03)
--- NOTE | 2020-03-06 06:31 | NUR ---
NURSE HAND-OFF: Important Events on Shift:Disruptive behavior(YELLS AND SCREAMS) Cocktail medication given ORDERED BY DR. GUERRA Patient Status: stable Diet: regular mech. soft chopped Pending Orders:HD; PRANEETH( DIALYSIS NURSE) AWARE Pending Results/Labs:n/a Pending MD notification:n/a Latest Vital Signs: Temperature 96.9 , Pulse 80 , B/P 126 /70 , Respiratory Rate 19 , O2 SAT 97 , Nasal Cannula, O2 Flow Rate 2.0 . Vital Sign Comment: stable Latest Mcconnell Fall Score: 75 Fall Risk: High Risk Safety Measures: Call light Within Reach, Bed Alarm Zone 1, Side Rails Side Rails x2, Bed position Low and Locked. Fall Precautions: Yellow Socks Door Sign Patient Fall Education Addendum: 03/06/20 at 0729 by Kiera Morin RN HAND-OFF: Report given to jessica azul.
[2020-03-06 08:00] VITALS: BP 147/68
--- NOTE | 2020-03-06 08:27 | NUR ---
NURSE NOTES: received report from MARY Larios. patient in bed. alert. name and place. forgetful at times. no respiratory distress on room air now. no pain. cath for HD on right upper chest. dressing intact. IV dc per patent. schedules HD today. bed in the lowest position and locked. call light within reach. alarm on. will continue to provide plan of care.
[2020-03-06] MEDS: Aspirin Baby 81mg ORAL SCH (08:46)
[2020-03-06] MEDS: Morphine Sulfate 2mg/ml Inj(IV/IM USE ONLY) IVP PRN ×2 (09:07→21:03)
[2020-03-06 11:10] LABS: HEMATOCRIT 23.9 % (37.0-47.0); HEMOGLOBIN 7.8 G/DL (12.0-16.0); MEAN CORPUSCULAR VOLUME 90 FL (80-99); PLATELET COUNT 140 K/UL (150-450); RED BLOOD COUNT 2.67 M/UL (4.20-5.40); RED CELL DISTRIBUTION WIDTH 15.9 % (11.6-14.8); WHITE BLOOD COUNT 6.9 K/UL (4.8-10.8)
[2020-03-06 11:16] LABS: CALCIUM 8.1 MG/DL (8.5-10.1); CREATININE 4.4 MG/DL (0.55-1.30); POTASSIUM 4.5 MMOL/L (3.5-5.1)
--- NOTE | 2020-03-06 11:32 | Nephrology Progress Note ---
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 #troponemia #CHF #h/o polysubtance abuse, cocaine abuser #HTN #anemia - next HD on sunday - monitor hemoglobin level - cardiology eval - 2D Echo: EF30%, severe pulm HTN with PAP 90mmHg, global and regional wall motion abnormalities - amlodipine 10mg daily - add benazopril 20mg daily - increase 50 TID - ceftriaxone for UTI -continue epo - monitor electrolytes time spent 65 min Subjective ROS Limited/Unobtainable: Yes Subjective hemoglobin stable agitated at times 2D Echo: EF30%, severe pulm HTN with PAP 90mmHg, global and regional wall motion abnormalities remains confused Objective Objective Last 24 Hour Vital Signs Date Time Temp Pulse Resp B/P (MAP) Pulse Ox O2 Delivery O2 Flow Rate FiO2 03/06/20 08:00 97.9 97 19 147/68 (94) 95 03/06/20 04:00 97.6 85 19 130/74 (92) 99 03/05/20 21:00 Room Air 03/05/20 20:18 73 20 120/70 99 03/05/20 20:00 97.5 87 19 124/76 (92) 98 03/05/20 19:48 79 20 124/73 98 03/05/20 17:38 80 126/70 03/05/20 17:38 126/70 03/05/20 13:13 126/70 03/05/20 12:23 80 19 126/70 97 03/05/20 12:00 96.9 77 18 143/73 (96) 96 03/05/20 11:53 84 19 128/68 97 03/05/20 11:53 132/72 Intake and Output 03/05/20 03/06/20 19:00 07:00 Intake Total 800 ml 360 ml Balance 800 ml 360 ml Other 800 ml 360 ml # Voids 1 Laboratory Tests 03/06/20 10:05: White Blood Count 6.9, Red Blood Count 2.67L, Hemoglobin 7.8L, Hematocrit 23.9L, Mean Corpuscular Volume 90, Mean Corpuscular Hemoglobin 29.1, Mean Corpuscular Hemoglobin Concent 32.4, Red Cell Distribution Width 15.9H, Platelet Count 140L, Mean Platelet Volume 7.9, Neutrophils (%) (Auto) , Lymphocytes (%) (Auto) , Monocytes (%) (Auto) , Eosinophils (%) (Auto) , Basophils (%) (Auto) , Neutrophils % (Manual) [Pending], Lymphocytes % (Manual) [Pending], Platelet Estimate [Pending], Platelet Morphology [Pending], Sodium Level 142, Potassium Level 4.5, Chloride Level 108H, Carbon Dioxide Level 26, Anion Gap 8, Blood Urea Nitrogen 63H, Creatinine 4.4H, Estimat Glomerular Filtration Rate 9.9, Glucose Level 128H, Calcium Level 8.1L Height (Feet): 5 Height (Inches): 4.00 Weight (Pounds): 160 Ace Munroe M.D. Mar 06, 2020 11:32
[2020-03-06] MEDS: LORazepam Inj 2mg/ml 1ml IV PRN (11:38)
[2020-03-06 12:00] VITALS: BP 152/86
--- NOTE | 2020-03-06 13:14 | NUR ---
NURSE NOTES: patient is keep trying to get up during dialysis and pulling dialysis device. aggressive, resists nursing care. given ativan IV PRN but did not work. notified Dr. Mckeon and received order of soft restraints on both wrists for safety and prevent pulling device. order noted and carried out.
--- NOTE | 2020-03-06 14:03 | Surgery Progress Note ---
Surgery Progress Note Subjective Symptoms: improved, pain absent, tolerating diet Objective Last 24 Hour Vital Signs Date Time Temp Pulse Resp B/P (MAP) Pulse Ox O2 Delivery O2 Flow Rate FiO2 03/06/20 12:00 96.6 107 19 152/86 (108) 94 03/06/20 11:38 97 19 147/68 95 03/06/20 11:34 147/68 03/06/20 09:00 Room Air 03/06/20 08:00 97.9 97 19 147/68 (94) 95 03/06/20 04:00 97.6 85 19 130/74 (92) 99 03/05/20 21:00 Room Air 03/05/20 20:18 73 20 120/70 99 03/05/20 20:00 97.5 87 19 124/76 (92) 98 03/05/20 19:48 79 20 124/73 98 03/05/20 17:38 80 126/70 03/05/20 17:38 126/70 I&O Intake and Output 03/05/20 03/06/20 19:00 07:00 Intake Total 800 ml 360 ml Balance 800 ml 360 ml Other 800 ml 360 ml # Voids 1 Dressing: saturated Cardiovascular: RSR Respiratory: clear Abdomen: soft, non-tender, present bowel sounds Extremities: no edema, no tenderness, no cyanosis Laboratory Tests Test 03/06/20 10:05 White Blood Count 6.9 K/UL (4.8-10.8) Red Blood Count 2.67 M/UL (4.20-5.40) L Hemoglobin 7.8 G/DL (12.0-16.0) L Hematocrit 23.9 % (37.0-47.0) L Mean Corpuscular Volume 90 FL (80-99) Mean Corpuscular Hemoglobin 29.1 PG (27.0-31.0) Mean Corpuscular Hemoglobin Concent 32.4 G/DL (32.0-36.0) Red Cell Distribution Width 15.9 % (11.6-14.8) H Platelet Count 140 K/UL (150-450) L Mean Platelet Volume 7.9 FL (6.5-10.1) Neutrophils (%) (Auto) % (45.0-75.0) Lymphocytes (%) (Auto) % (20.0-45.0) Monocytes (%) (Auto) % (1.0-10.0) Eosinophils (%) (Auto) % (0.0-3.0) Basophils (%) (Auto) % (0.0-2.0) Differential Total Cells Counted 100 Neutrophils % (Manual) 80 % (45-75) H Lymphocytes % (Manual) 13 % (20-45) L Monocytes % (Manual) 5 % (1-10) Eosinophils % (Manual) 2 % (0-3) Basophils % (Manual) 0 % (0-2) Band Neutrophils 0 % (0-8) Platelet Estimate Decreased L Platelet Morphology Normal Hypochromasia 1+ Anisocytosis 1+ Sodium Level 142 MMOL/L (136-145) Potassium Level 4.5 MMOL/L (3.5-5.1) Chloride Level 108 MMOL/L (98-107) H Carbon Dioxide Level 26 MMOL/L (21-32) Anion Gap 8 mmol/L (5-15) Blood Urea Nitrogen 63 mg/dL (7-18) H Creatinine 4.4 MG/DL (0.55-1.30) H Estimat Glomerular Filtration Rate 9.9 mL/min (>60) Glucose Level 128 MG/DL (74-106) H Calcium Level 8.1 MG/DL (8.5-10.1) L Plan Problems: (1) Abnormal LFTs Assessment & Plan: Patient identified to have elevated LFTs on admission. Complaints abdominal discomfort. No imaging currently performed. Abdominal u ltrasound ordered. Trend labs IV fluids will monitor recommendations with evaluation of medications and serial abdominal exams. Exam is limited due to patient having limited ability to cooperate. Gallbladder demonstrates focal wall thickening and edema, gallbladder wall just over 4 mm thick. There is also small amount of pericholecystic fluid No gallstones. Sonographic Lewis's sign is negative. Common bile duct measures 5 mm in diameter. No intrahepatic biliary ductal dilatation. Liver demonstrates slightly increased echogenicity, no focal abnormality. Portal vein and hepatic veins are patent. Pancreas is unremarkable. Spleen is unremarkable. Left kidney measures 7.7 cm in length. Right kidney measures 8 cm length. Both kidneys demonstrate increased echogenicity There is no hydronephrosis. No focal abnormality . Abdominal aorta is partially obscured by bowel gas, visualized portions are non-aneurysmal . Right pleural effusion incidentally noted Impression: Somewhat limited exam, as described Increased renal echogenicity bilaterally, indicating medical renal disease. Incidental finding of bilateral renal cysts Mildly increased hepatic echogenicity, likely medical renal disease Negative for gallstones. There is focal gallbladder wall thickening and some pericholecystic fluid. This is probably due to edema of systemic causes but the possibility of acalculous acute cholecystitis should also be considered Right pleural effusion Note incompletely visualized distal abdominal aorta (2) Abdominal discomfort Assessment & Plan: No significant bowel distention. Discomfort on palpation asking for pain medications. No nausea vomiting fever chills. Okay for diet as tolerated we will follow with serial exams Thank allowing participation's care (3) Anemia (4) UTI (urinary tract infection) (5) Hypertension (6) ESRF (end stage renal failure) (7) Noncompliance (8) Head injury, acute (9) Cocaine abuse (10) Acute exacerbation of CHF (congestive heart failure) (11) Pain syndrome, chronic (12) Elevated troponin I level Blu Lema Mar 06, 2020 14:03
--- NOTE | 2020-03-06 15:57 | NUR ---
PT Note Was advised by RN to hold off on PT today as patient just had dialysis, has been very agitated and is calm at this time. Will check again in AM.
--- NOTE | 2020-03-06 19:09 | General Progress Note ---
Subjective Date patient seen: Mar 06, 2020 ROS Limited/Unobtainable: Yes Allergies: Coded Allergies: SULFA (SULFONAMIDE ANTIBIOTICS) (Verified Allergy, Unknown, 02/24/20) Subjective Patient altered today and not cooperative with staff. Further subjective history unable to be obtained due to ALOC Review of systems: Unable to be obtained due to ALOC Objective Last 24 Hour Vital Signs Date Time Temp Pulse Resp B/P (MAP) Pulse Ox O2 Delivery O2 Flow Rate FiO2 03/06/20 17:29 106 159/86 03/06/20 17:29 159/86 03/06/20 15:37 143/79 03/06/20 12:00 96.6 107 19 152/86 (108) 94 03/06/20 11:38 97 19 147/68 95 03/06/20 11:34 147/68 03/06/20 09:00 Room Air 03/06/20 08:00 97.9 97 19 147/68 (94) 95 03/06/20 04:00 97.6 85 19 130/74 (92) 99 03/05/20 21:00 Room Air 03/05/20 20:18 73 20 120/70 99 03/05/20 20:00 97.5 87 19 124/76 (92) 98 03/05/20 19:48 79 20 124/73 98 Intake and Output 03/05/20 03/06/20 18:59 06:59 Intake Total 800 ml 360 ml Balance 800 ml 360 ml Other 800 ml 360 ml # Voids 1 Laboratory Tests 03/06/20 10:05: White Blood Count 6.9, Red Blood Count 2.67L, Hemoglobin 7.8L, Hematocrit 23.9L, Mean Corpuscular Volume 90, Mean Corpuscular Hemoglobin 29.1, Mean Corpuscular Hemoglobin Concent 32.4, Red Cell Distribution Width 15.9H, Platelet Count 140L, Mean Platelet Volume 7.9, Neutrophils (%) (Auto) , Lymphocytes (%) (Auto) , Monocytes (%) (Auto) , Eosinophils (%) (Auto) , Basophils (%) (Auto) , Differential Total Cells Counted 100, Neutrophils % (Manual) 80H, Lymphocytes % (Manual) 13L, Monocytes % (Manual) 5, Eosinophils % (Manual) 2, Basophils % (Manual) 0, Band Neutrophils 0, Platelet Estimate DecreasedL, Platelet Morphology Normal, Hypochromasia 1+, Anisocytosis 1+, Sodium Level 142, Potassium Level 4.5, Chloride Level 108H, Carbon Dioxide Level 26, Anion Gap 8, Blood Urea Nitrogen 63H, Creatinine 4.4H, Estimat Glomerular Filtration Rate 9.9, Glucose Level 128H, Calcium Level 8.1L Height (Feet): 5 Height (Inches): 4.00 Weight (Pounds): 160 Objective General: WDWN female in NAD, Altered. Resting, awake, confused, uncooperative HEENT: Normocephalic cephalic atraumatic, pupils equal round reactive to light and accommodation, nares patent and no symmetrical, no tonsillar exudates, mucous membranes moist CV: Regular rate regular rhythm, no murmurs, rubs, or gallops. HD line C/d/i. Pulm: Lungs clear to auscultation bilaterally. No wheezes, rhonchi, or rales GI: Soft, nontender, nondistended, bowel sounds present Neuro: CN 2-12 intact bilaterally, no focal signs. Moving all extremities Ext: No lower extremity edema bilaterally Skin: no rashes lesions or ulcers Msk: Joints symmetrical in upper extremity and lower extremity bilaterally, no joint swelling. Lymph: No lymphadenopathy in upper extremity and lower extremity Assessment/Plan Assessment/Plan: 74 yo F with PMHX CHF. CKD4, opioid abuser, chronic untraceable pain syndrome, admitted for CHF exacerbation and fluid overload # Acute systolic heart failure exacerbation. # s/p CKD5 # Now ESRD # Acute metabolic encephalopathy - stable - lasix 60mg BID - fluid restriction - HD with Dr. Munroe, need to coordinate care - Discharge pending dialysis center availability - per patient case coordinatorRosio requires hepatitis total core antibody test prior to accepting, test pending - No family or surrogate decision makers available at this time. Patient lacks capacity. Completely altered. Social work consulted. - At this time patient unable to make their own health care decisions. Procedure or treatment is necessary to alleviate severe pain and/or, if not performed, would lead to serious disability or . - patient unable to maker her own health care decision likely due to uremic encephalopathy I also believe HD is necessary to improved her current condition therefore we will proceed with permcath placement as renal replacement therapy is felt to prevent major disability - IR placed HD catheter. - Renal/heart healthy diet #Acute blood loss anemia 2/2 tunneled cath line removal > no further signs of bleeding - PRBC transfusion 02/26 with appropriate response - Patient still unable to consent and no surrogate decision maker available. Agree to proceed due to emergent nature. #Elevated alk phos #elevated GGT > Suspect could be due to hepatic congestion from heart failure - abdominal ultrasound: gallbladder thickening - > D/w Surgery. No suspicion for cholecystitis - Appreciate gen surgery recommendations: D/w Dr. Lema #Acute systolic heart failure exacerbation #Elevated troponin, suspect due to demand ischemia and ESRD. Appreciate cardiology input #essential hypertension - EF 20-25%. Global hypokinesis D/w Cardiology. Ischemia vs. history of cocaine use - asa 81 - Increased benazepril to 40mg Po daily by Cardiology - HD per nephrology - appreciate cardiology recommendations #Urinary tract infection - blood cultures: NGTD - urine culture: mixed results - Rocephin (02/23 - ) # LE edema - US LE to r/o dvt: pending. D/w nursing again who will follow up # Opioid abuse #H/o cocaine abuse - avoid unnecessary narcotic FENPPX DVTPPX: Diet: renal Lines: tunneled line PT/OT: pending Code status: full per policy Dispo: SNF eventually Reason for Continued Hospitalization: ESRD - needs accepting dialysis center - hepatitis total core antibody test pending (test is sent out to outside lab so may take several days), encephalopathy. MIPS ([employer]-based Incentive Payment System) Applicable CPT: 87244, 84761 CHECK ALL THAT ARE MET: [] Measure #5 (CHF): All ages. Prescribe BLACK/ARB upon discharge for patients with left ventricular systolic dysfunction. If not, the reason is clearly documented in the medical chart .[] Measure #8 (CHF): All ages. Prescribe a beta marlys upon discharge for patients with left ventricular systolic dysfunction. If not, the reason is clearly documented in the medical chart. [x] Measure #47: Advance care plan or surrogate decision maker documented in the medical record. [x] Measure #130 The provider has documented, updated, or reviewed the patients current medication list and has documented it in the patients note. [] Measure #374 (All): Send report to referring provider. [] Measure #407(Sepsis due to MSSA bacteremia): Age 18+ Patient treated with a beta-lactam antibiotic (Nafcillin, Oxacillin or Cefazolin) as definitive therapy. MEDICAL COMPLEXITYHigh complexity medical decision making (need 2/3 categories)Problem - need 4 points [x]Acute/new problem with new plan for workup (4 points, 1 max) [] Acute/new problem without additional workup (3 points, 1 max) [] Unstable chronic problem actively being managed (2 point each, 2 max) [] Stable chronic problem actively being managed (1 point each, 2 max) [] Self-limited/transient process (constipation, muscle ache, etc) (1 point each, 2 max) Data - need 4 points [x] Reviewed labs/imaging studies (1 points, 2 max) [x] Independent review of imaging (EKG, xrays, etc) (2 points, 2 max) [x] Discussed case with consult/other MD/RN (2 points, 2 max) High Risk - qualify if have one of the following: [x] Severe exacerbation of acute problem, acute mental status change, IV narcotics, monitoring drug levels (vancomycin, INR, tacrolimus etc) I spent 35 minutes on this patient's case, and 24 mins was dedicated to counseling and/or care coordination. Discussed with nephro, Bedside RN, patient case coordinator Time of note may not reflect time of encounter Boris Marrero M.D. Mar 06, 2020 19:09
--- NOTE | 2020-03-06 19:17 | Neurology Progress Note ---
Interim History Interim History ROS Limited/Unobtainable: Yes Interim History remains somnolent poor interaction Objective Physical Exam Last Vital Signs Date Time Temp Pulse Resp B/P (MAP) Pulse Ox O2 Delivery O2 Flow Rate FiO2 03/06/20 17:29 106 159/86 03/06/20 12:00 96.6 19 94 03/06/20 09:00 Room Air 03/04/20 06:00 2.0 97 Laboratory Tests Test 03/06/20 10:05 White Blood Count 6.9 K/UL (4.8-10.8) Red Blood Count 2.67 M/UL (4.20-5.40) L Hemoglobin 7.8 G/DL (12.0-16.0) L Hematocrit 23.9 % (37.0-47.0) L Mean Corpuscular Volume 90 FL (80-99) Mean Corpuscular Hemoglobin 29.1 PG (27.0-31.0) Mean Corpuscular Hemoglobin Concent 32.4 G/DL (32.0-36.0) Red Cell Distribution Width 15.9 % (11.6-14.8) H Platelet Count 140 K/UL (150-450) L Mean Platelet Volume 7.9 FL (6.5-10.1) Neutrophils (%) (Auto) % (45.0-75.0) Lymphocytes (%) (Auto) % (20.0-45.0) Monocytes (%) (Auto) % (1.0-10.0) Eosinophils (%) (Auto) % (0.0-3.0) Basophils (%) (Auto) % (0.0-2.0) Differential Total Cells Counted 100 Neutrophils % (Manual) 80 % (45-75) H Lymphocytes % (Manual) 13 % (20-45) L Monocytes % (Manual) 5 % (1-10) Eosinophils % (Manual) 2 % (0-3) Basophils % (Manual) 0 % (0-2) Band Neutrophils 0 % (0-8) Platelet Estimate Decreased L Platelet Morphology Normal Hypochromasia 1+ Anisocytosis 1+ Sodium Level 142 MMOL/L (136-145) Potassium Level 4.5 MMOL/L (3.5-5.1) Chloride Level 108 MMOL/L (98-107) H Carbon Dioxide Level 26 MMOL/L (21-32) Anion Gap 8 mmol/L (5-15) Blood Urea Nitrogen 63 mg/dL (7-18) H Creatinine 4.4 MG/DL (0.55-1.30) H Estimat Glomerular Filtration Rate 9.9 mL/min (>60) Glucose Level 128 MG/DL (74-106) H Calcium Level 8.1 MG/DL (8.5-10.1) L Head: normocophalic Neck: no rigidity EENT: benign Neurologic Exam Mental Status: awake, alert Cranial Nerve II: visual juarez Cranial Nerves III, IV, : PERRLA, EOMI Cranial Nerve V: normal facial sensations Objective ao x 2 flapping noted tangential non focal Impression/Recommendations Problems: (1) Anemia (2) UTI (urinary tract infection) (3) Hypertension (4) ESRF (end stage renal failure) (5) Noncompliance (6) Head injury, acute (7) Cocaine abuse (8) Acute exacerbation of CHF (congestive heart failure) (9) Pain syndrome, chronic (10) Elevated troponin I level (11) Abdominal discomfort (12) Abnormal LFTs Diagnostic Impression acute encephalopathy, likely uremic agitation tele seroquel 25 mg bid standing HD per nephro PT OT as able no opioids Hay Johnson MD Mar 06, 2020 19:17
--- NOTE | 2020-03-06 19:34 | NUR ---
NURSE HAND-OFF: Important Events on Shift: HD. pain management. Restraint care. Patient Status: agitated. restless, Diet: regular mech soft Pending Orders: n/a Pending Results/Labs:n/a Pending MD notification:n/a Latest Vital Signs: Temperature 96.6 , Pulse 106 , B/P 159 /86 , Respiratory Rate 19 , O2 SAT 94 , Nasal Cannula, O2 Flow Rate 2.0 . Vital Sign Comment: stable. Latest Mcconnell Fall Score: 75 Fall Risk: High Risk Safety Measures: Call light Within Reach, Bed Alarm Zone 1, Side Rails Side Rails x2, Bed position Low and Locked. Fall Precautions: Yellow Socks Door Sign Patient Fall Education Report given to MARY Lange.
[2020-03-06 20:00] VITALS: BP 151/85
[2020-03-07] MEDS: Morphine Sulfate 2mg/ml Inj(IV/IM USE ONLY) IVP PRN ×3 (02:58→20:24)
--- NOTE | 2020-03-07 03:36 | Cardiology Progress Note ---
Subjective DATE OF SERVICE: Feb 05, 2020 No new complaints; more alert BP parameters remain stable. S/P HD/UF today 2D Echo: EF 30%, severe pulm HTN with PAP 90mmHg, global and regional wall motion abnormalities Objective Last 24 Hour Vital Signs Date Time Temp Pulse Resp B/P (MAP) Pulse Ox O2 Delivery O2 Flow Rate FiO2 03/06/20 21:03 151/85 03/06/20 21:00 Room Air 03/06/20 20:00 98.3 106 17 151/85 (107) 94 03/06/20 17:29 106 159/86 03/06/20 17:29 159/86 03/06/20 15:37 143/79 03/06/20 12:00 96.6 107 19 152/86 (108) 94 03/06/20 11:38 97 19 147/68 95 03/06/20 11:34 147/68 03/06/20 09:00 Room Air 03/06/20 08:00 97.9 97 19 147/68 (94) 95 03/06/20 04:00 97.6 85 19 130/74 (92) 99 ROS: unchanged from my assessment of 02/25/20 HEENT: normal ENT inspection RHYTHM: NSR, ST LUNGS: diminished breath sounds, rales bilaterally - few, other - Right chest wall cath site with no active bleeding CARDIAC: normal rate, regular rhythm, normal S1 and S2, systolic murmur - 2/6 systolic murmur at LLSB, gallop/S4 ABDOMEN: normal bowel sounds, non tender, soft, no organomegaly EXTREMITIES: normal range of motion, non-tender, +1 edema Laboratory Tests Test 03/06/20 10:05 White Blood Count 6.9 K/UL (4.8-10.8) Red Blood Count 2.67 M/UL (4.20-5.40) L Hemoglobin 7.8 G/DL (12.0-16.0) L Hematocrit 23.9 % (37.0-47.0) L Mean Corpuscular Volume 90 FL (80-99) Mean Corpuscular Hemoglobin 29.1 PG (27.0-31.0) Mean Corpuscular Hemoglobin Concent 32.4 G/DL (32.0-36.0) Red Cell Distribution Width 15.9 % (11.6-14.8) H Platelet Count 140 K/UL (150-450) L Mean Platelet Volume 7.9 FL (6.5-10.1) Neutrophils (%) (Auto) % (45.0-75.0) Lymphocytes (%) (Auto) % (20.0-45.0) Monocytes (%) (Auto) % (1.0-10.0) Eosinophils (%) (Auto) % (0.0-3.0) Basophils (%) (Auto) % (0.0-2.0) Differential Total Cells Counted 100 Neutrophils % (Manual) 80 % (45-75) H Lymphocytes % (Manual) 13 % (20-45) L Monocytes % (Manual) 5 % (1-10) Eosinophils % (Manual) 2 % (0-3) Basophils % (Manual) 0 % (0-2) Band Neutrophils 0 % (0-8) Platelet Estimate Decreased L Platelet Morphology Normal Hypochromasia 1+ Anisocytosis 1+ Sodium Level 142 MMOL/L (136-145) Potassium Level 4.5 MMOL/L (3.5-5.1) Chloride Level 108 MMOL/L (98-107) H Carbon Dioxide Level 26 MMOL/L (21-32) Anion Gap 8 mmol/L (5-15) Blood Urea Nitrogen 63 mg/dL (7-18) H Creatinine 4.4 MG/DL (0.55-1.30) H Estimat Glomerular Filtration Rate 9.9 mL/min (>60) Glucose Level 128 MG/DL (74-106) H Calcium Level 8.1 MG/DL (8.5-10.1) L Assessment/Plan Assessment/Plan Metabolic encephalopathy ESRD Acute myocardial ischemia/possible NSTE myocardial infarction Ischemic and cocaine cardiomyopathy Severe pulmonary hypertension Acute on chronic systolic CHF Hypertensive urgency resolved Anemia of CKD Hypomagnesemia HD/UF tomorrow. Nitrates PRBC tx Anti-plt therapy Maximizing antiHTN and anti-failure regimen further, including ACEi since diagnosed with ESRD Epo/Fe++; consider PRBC transfusion Magnesium replacement as needed Sourav Montejo MD Mar 07, 2020 03:36
[2020-03-07 04:00] VITALS: BP 140/80
[2020-03-07] MEDS: Heparin 5000 units/ml inj SUBQ SCH ×3 (05:29→20:26)
[2020-03-07] MEDS: Nitroglycerin 2% oint pkt TOPIC SCH ×3 (05:29→17:20)
[2020-03-07] MEDS: HydrALAZINE 50mg tab ORAL SCH ×3 (05:29→20:23)
--- NOTE | 2020-03-07 07:52 | NUR ---
NURSE HAND-OFF: Important Events on Shift: Patient is still on restraints, no redness or swelling at site, pulses present. pain management with morphine 1mg. New IV inserted on right upper arm. Patient Status: Stable Diet: Renal Pending Orders: N/A Pending Results/Labs: N/A Pending MD notification: N/A Latest Vital Signs: Temperature 98.9 , Pulse 96 , B/P 140 /80 , Respiratory Rate 19 , O2 SAT 92 , Nasal Cannula, O2 Flow Rate 2.0 . Vital Sign Comment: Stable Latest Mcconnell Fall Score: 75 Fall Risk: High Risk Safety Measures: Call light Within Reach, Bed Alarm Zone 1, Side Rails Side Rails x2, Bed position Low and Locked. Fall Precautions: Yellow Socks Door Sign Patient Fall Education Report given to MARY Gonzalez.
[2020-03-07 08:00] VITALS: BP 153/79
--- NOTE | 2020-03-07 08:00 | NUR ---
NURSE NOTES: received report from Anisa,RN. patient in bed. a&Ox name and place. verbally responsive. confused. forgetful at times. no respiratory distress noted on room air. pain on general body and BLE. IV on right upper arm. intact. flushed. perma cath on right upper arm, dressing intact. no bleeding noted. soft restraint on both wrist for safety, pulling out devices. skin intact. pulse present. no swelling. bed in the lowest position and locked. call light within reach. alarm on. will continue to provide plan of care.
[2020-03-07] MEDS: Aspirin Baby 81mg ORAL SCH (08:45)
--- NOTE | 2020-03-07 09:51 | NUR ---
RD ASSESSMENT & RECOMMENDATIONS SEE CARE ACTIVITY FOR COMPLETE ASSESSMENT DAILY ESTIMATED NEEDS: Needs based on ESRD w/ HD, 53kg 25-30 kcals/kg 8345-0978 total kcals 1.2-1.8 g protein/kg 64-95 g total protein Fluids per MD NUTRITION DIAGNOSIS: Increased kcal/prot needs R/T renal dysfunction as evidenced by s/p permacath placement (02/26), on HD. CURRENT DIET: Renal-> now Regular diet PO DIET RECOMMENDATIONS: RENAL/ texture per [employer] or as tolerated ADDITIONAL RECOMMENDATIONS: * Daily calibrated bedscale wt- stable * Nepro BID w variable intake (425kcal/19g prot each) * Nephrovite x 1 * Replete lytes if low, on lasix
--- NOTE | 2020-03-07 10:09 | Nephrology Progress Note ---
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 #troponemia #CHF #h/o polysubtance abuse, cocaine abuser #HTN #anemia - next HD on sunday - monitor hemoglobin level - cardiology eval - 2D Echo: EF30%, severe pulm HTN with PAP 90mmHg, global and regional wall motion abnormalities - switch to nifedipine to 60mg BUD - add benazopril 20mg daily - increase hydralazine 100 TID - ceftriaxone for UTI -continue epo - monitor electrolytes time spent 65 min Subjective ROS Limited/Unobtainable: Yes Subjective hemoglobin stable agitated at times 2D Echo: EF30%, severe pulm HTN with PAP 90mmHg, global and regional wall motion abnormalities remains confused Objective Objective Last 24 Hour Vital Signs Date Time Temp Pulse Resp B/P (MAP) Pulse Ox O2 Delivery O2 Flow Rate FiO2 03/07/20 08:46 107 153/79 03/07/20 08:45 153/79 03/07/20 08:00 97.7 107 18 153/79 (103) 94 03/07/20 05:29 140/80 03/07/20 05:29 140/80 03/07/20 04:00 98.9 96 19 140/80 (100) 92 03/06/20 21:03 151/85 03/06/20 21:00 Room Air 03/06/20 20:00 98.3 106 17 151/85 (107) 94 03/06/20 17:29 106 159/86 03/06/20 17:29 159/86 03/06/20 15:37 143/79 03/06/20 12:00 96.6 107 19 152/86 (108) 94 03/06/20 11:38 97 19 147/68 95 03/06/20 11:34 147/68 Intake and Output 03/06/20 03/07/20 19:00 07:00 Intake Total 240 ml 800 ml Output Total 2000 ml Balance -1760 ml 800 ml Intake Oral 240 ml 800 ml Hemodialysis UF 2000 ml # Voids 6 Height (Feet): 5 Height (Inches): 4.00 Weight (Pounds): 160 Ace Munroe M.D. Mar 07, 2020 10:09
[2020-03-07 10:22] LABS: HEMATOCRIT 23.1 % (37.0-47.0); HEMOGLOBIN 7.4 G/DL (12.0-16.0); MEAN CORPUSCULAR VOLUME 91 FL (80-99); PLATELET COUNT 145 K/UL (150-450); RED BLOOD COUNT 2.54 M/UL (4.20-5.40); RED CELL DISTRIBUTION WIDTH 15.6 % (11.6-14.8); WHITE BLOOD COUNT 8.2 K/UL (4.8-10.8)
[2020-03-07 10:51] LABS: CALCIUM 7.9 MG/DL (8.5-10.1); CREATININE 3.9 MG/DL (0.55-1.30); POTASSIUM 4.4 MMOL/L (3.5-5.1)
[2020-03-07 12:00] VITALS: BP 128/63
--- NOTE | 2020-03-07 12:14 | NUR ---
CHARGE NURSE NOTE: H@H 7.07/02.1. aware, no new orders given.
[2020-03-07 12:21] LABS: PHOSPHORUS 3.9 MG/DL (2.5-4.9)
[2020-03-07 16:00] VITALS: BP 141/72
--- NOTE | 2020-03-07 18:14 | Surgery Progress Note ---
Surgery Progress Note Subjective Symptoms: improved, tolerating diet, passing flatus, BM Objective Last 24 Hour Vital Signs Date Time Temp Pulse Resp B/P (MAP) Pulse Ox O2 Delivery O2 Flow Rate FiO2 03/07/20 17:20 103 141/72 03/07/20 17:20 141/72 03/07/20 16:00 97.8 103 18 141/72 (95) 94 03/07/20 14:29 125/75 03/07/20 12:28 128/63 03/07/20 12:00 97.5 100 18 128/63 (84) 96 03/07/20 09:00 Room Air 03/07/20 08:46 107 153/79 03/07/20 08:45 153/79 03/07/20 08:00 97.7 107 18 153/79 (103) 94 03/07/20 05:29 140/80 03/07/20 05:29 140/80 03/07/20 04:00 98.9 96 19 140/80 (100) 92 03/06/20 21:03 151/85 03/06/20 21:00 Room Air 03/06/20 20:00 98.3 106 17 151/85 (107) 94 I&O Intake and Output 03/06/20 03/07/20 19:00 07:00 Intake Total 240 ml 800 ml Output Total 2000 ml Balance -1760 ml 800 ml Intake Oral 240 ml 800 ml Hemodialysis UF 2000 ml # Voids 6 Dressing: saturated Cardiovascular: RSR Respiratory: decreased breath sounds Abdomen: non-tender, present bowel sounds Extremities: no tenderness, no cyanosis Laboratory Tests Test 03/07/20 08:55 White Blood Count 8.2 K/UL (4.8-10.8) Red Blood Count 2.54 M/UL (4.20-5.40) L Hemoglobin 7.4 G/DL (12.0-16.0) L Hematocrit 23.1 % (37.0-47.0) L Mean Corpuscular Volume 91 FL (80-99) Mean Corpuscular Hemoglobin 29.2 PG (27.0-31.0) Mean Corpuscular Hemoglobin Concent 32.1 G/DL (32.0-36.0) Red Cell Distribution Width 15.6 % (11.6-14.8) H Platelet Count 145 K/UL (150-450) L Mean Platelet Volume 8.2 FL (6.5-10.1) Neutrophils (%) (Auto) % (45.0-75.0) Lymphocytes (%) (Auto) % (20.0-45.0) Monocytes (%) (Auto) % (1.0-10.0) Eosinophils (%) (Auto) % (0.0-3.0) Basophils (%) (Auto) % (0.0-2.0) Differential Total Cells Counted 100 Neutrophils % (Manual) 70 % (45-75) Lymphocytes % (Manual) 17 % (20-45) L Monocytes % (Manual) 11 % (1-10) H Eosinophils % (Manual) 2 % (0-3) Basophils % (Manual) 0 % (0-2) Band Neutrophils 0 % (0-8) Platelet Estimate Decreased L Platelet Morphology Normal Hypochromasia 1+ Anisocytosis 1+ Sodium Level 141 MMOL/L (136-145) Potassium Level 4.4 MMOL/L (3.5-5.1) Chloride Level 105 MMOL/L (98-107) Carbon Dioxide Level 28 MMOL/L (21-32) Anion Gap 9 mmol/L (5-15) Blood Urea Nitrogen 56 mg/dL (7-18) H Creatinine 3.9 MG/DL (0.55-1.30) H Estimat Glomerular Filtration Rate 11.3 mL/min (>60) Glucose Level 110 MG/DL (74-106) H Calcium Level 7.9 MG/DL (8.5-10.1) L Phosphorus Level 3.9 MG/DL (2.5-4.9) Magnesium Level 1.8 MG/DL (1.8-2.4) Plan Problems: (1) Abnormal LFTs Assessment & Plan: Patient identified to have elevated LFTs on admission. Complaints abdominal discomfort. No imaging currently performed. Abdominal ultrasound ordered. Trend labs IV fluids will monitor recommendations with evaluation of medications and serial abdominal exams. Exam is limited due to patient having limited ability to cooperate. Gallbladder demonstrates focal wall thickening and edema, gallbladder wall just over 4 mm thick. There is also small amount of pericholecystic fluid No gallstones. Sonographic Lewis's sign is negative. Common bile duct measures 5 mm in diameter. No intrahepatic biliary ductal dilatation. Liver demonstrates slightly increased echogenicity, no focal abnormality. Portal vein and hepatic veins are patent. Pancreas is unremarkable. Spleen is unremarkable. Left kidney measures 7.7 cm in length. Right kidney measures 8 cm length. Both kidneys demonstrate increased echogenicity There is no hydronephrosis. No focal abnormality . Abdominal aorta is partially obscured by bowel gas, visualized portions are non-aneurysmal . Right pleural effusion incidentally noted Impression: Somewhat limited exam, as described Increased renal echogenicity bilaterally, indicating medical renal disease. Incidental finding of bilateral renal cysts Mildly increased hepatic echogenicity, likely medical renal disease Negative for gallstones. There is focal gallbladder wall thickening and some pericholecystic fluid. This is probably due to edema of systemic causes but the possibility of acalculous acute cholecystitis should also be considered Right pleural effusion Note incompletely visualized distal abdominal aorta (2) Abdominal discomfort Assessment & Plan: No significant bowel distention. Discomfort on palpation asking for pain medications. No nausea vomiting fever chills. Okay for diet as tolerated we will follow with serial exams Thank allowing participation's care (3) Anemia (4) UTI (urinary tract infection) (5) Hypertension (6) ESRF (end stage renal failure) (7) Noncompliance (8) Head injury, acute (9) Cocaine abuse (10) Acute exacerbation of CHF (congestive heart failure) (11) Pain syndrome, chronic (12) Elevated troponin I level Blu Lema Mar 07, 2020 18:14
--- NOTE | 2020-03-07 18:35 | General Progress Note ---
Subjective Date patient seen: Mar 07, 2020 ROS Limited/Unobtainable: Yes Allergies: Coded Allergies: SULFA (SULFONAMIDE ANTIBIOTICS) (Verified Allergy, Unknown, 02/24/20) Subjective Patient continues to be altered, though more awake today. Still uncooperative with questions and exam. Further subjective history unable to be obtained due to ALOC Review of systems: Unable to be obtained due to ALOC Objective Last 24 Hour Vital Signs Date Time Temp Pulse Resp B/P (MAP) Pulse Ox O2 Delivery O2 Flow Rate FiO2 03/07/20 17:20 103 141/72 03/07/20 17:20 141/72 03/07/20 16:00 97.8 103 18 141/72 (95) 94 03/07/20 14:29 125/75 03/07/20 12:28 128/63 03/07/20 12:00 97.5 100 18 128/63 (84) 96 03/07/20 09:00 Room Air 03/07/20 08:46 107 153/79 03/07/20 08:45 153/79 03/07/20 08:00 97.7 107 18 153/79 (103) 94 03/07/20 05:29 140/80 03/07/20 05:29 140/80 03/07/20 04:00 98.9 96 19 140/80 (100) 92 03/06/20 21:03 151/85 03/06/20 21:00 Room Air 03/06/20 20:00 98.3 106 17 151/85 (107) 94 Intake and Output 03/06/20 03/07/20 19:00 07:00 Intake Total 240 ml 800 ml Output Total 2000 ml Balance -1760 ml 800 ml Intake Oral 240 ml 800 ml Hemodialysis UF 2000 ml # Voids 6 Laboratory Tests 03/07/20 08:55: White Blood Count 8.2, Red Blood Count 2.54L, Hemoglobin 7.4L, Hematocrit 23.1L, Mean Corpuscular Volume 91, Mean Corpuscular Hemoglobin 29.2, Mean Corpuscular Hemoglobin Concent 32.1, Red Cell Distribution Width 15.6H, Platelet Count 145L, Mean Platelet Volume 8.2, Neutrophils (%) (Auto) , Lymphocytes (%) (Auto) , Monocytes (%) (Auto) , Eosinophils (%) (Auto) , Basophils (%) (Auto) , Dif ferential Total Cells Counted 100, Neutrophils % (Manual) 70, Lymphocytes % (Manual) 17L, Monocytes % (Manual) 11H, Eosinophils % (Manual) 2, Basophils % (Manual) 0, Band Neutrophils 0, Platelet Estimate DecreasedL, Platelet Morphology Normal, Hypochromasia 1+, Anisocytosis 1+, Sodium Level 141, Potassium Level 4.4, Chloride Level 105, Carbon Dioxide Level 28, Anion Gap 9, Blood Urea Nitrogen 56H, Creatinine 3.9H, Estimat Glomerular Filtration Rate 11.3, Glucose Level 110H, Calcium Level 7.9L, Phosphorus Level 3.9, Magnesium Level 1.8 Height (Feet): 5 Height (Inches): 4.00 Weight (Pounds): 160 Objective General: WDWN female in NAD, Altered. Resting, awake, confused, uncooperative HEENT: Normocephalic cephalic atraumatic, pupils equal round reactive to light and accommodation, nares patent and no symmetrical, no tonsillar exudates, mucous membranes moist CV: Regular rate regular rhythm, no murmurs, rubs, or gallops. HD line C/d/i. Pulm: Lungs clear to auscultation bilaterally. No wheezes, rhonchi, or rales GI: Soft, nontender, nondistended, bowel sounds present Neuro: CN 2-12 intact bilaterally, no focal signs. Moving all extremities Ext: No lower extremity edema bilaterally Skin: no rashes lesions or ulcers Msk: Joints symmetrical in upper extremity and lower extremity bilaterally, no joint swelling. Lymph: No lymphadenopathy in upper extremity and lower extremity Assessment/Plan Assessment/Plan: 74 yo F with PMHX CHF. CKD4, opioid abuser, chronic untraceable pain syndrome, admitted for CHF exacerbation and fluid overload # Acute systolic heart failure exacerbation. # s/p CKD5 # Now ESRD # Acute metabolic encephalopathy - stable - lasix 60mg BID - fluid restriction - HD with Dr. Munroe, need to coordinate care - Discharge pending dialysis center availability - per case reviewer, [facility] requires hepatitis total core antibody test prior to accepting, results pending - No family or surrogate decision makers available at this time. Patient lacks capacity. Completely altered. Social work consulted. - At this time patient unable to make their own health care decisions. Procedure or treatment is necessary to alleviate severe pain and/or, if not performed, would lead to serious disability or . - patient unable to maker her own health care decision likely due to uremic encephalopathy I also believe HD is necessary to improved her current condition therefore we will proceed with permcath placement as renal replacement therapy is felt to prevent major disability - IR placed HD catheter. - Renal/heart healthy diet #Acute blood loss anemia 2/2 tunneled cath line removal > no further signs of bleeding - PRBC transfusion 02/26 with appropriate response - Patient still unable to consent and no surrogate decision maker available. Agree to proceed due to emergent nature. #Elevated alk phos #elevated GGT > Suspect could be due to hepatic congestion from heart failure - abdominal ultrasound: gallbladder thickening - > D/w Surgery. No suspicion for cholecystitis - Appreciate gen surgery recommendations: D/w Dr. Lema #Acute systolic heart failure exacerbation #Elevated troponin, suspect due to demand ischemia and ESRD. Appreciate cardiology input #essential hypertension - EF 20-25%. Global hypokinesis D/w Cardiology. Ischemia vs. history of cocaine use - asa 81 - Increased benazepril to 40mg Po daily by Cardiology - HD per nephrology - appreciate cardiology recommendations #Urinary tract infection - blood cultures: NGTD - urine culture: mixed results - s/p Rocephin (02/23 started) # LE edema - US LE to r/o dvt: pending. D/w nursing again who will follow up # Opioid abuse #H/o cocaine abuse - avoid unnecessary narcotic FENPPX DVTPPX: Diet: renal Lines: tunneled line PT/OT: pending Code status: full per policy Dispo: SNF eventually Reason for Continued Hospitalization: ESRD - needs accepting dialysis center - hepatitis total core antibody test pending (test is sent out to outside lab so may take several days), encephalopathy. MIPS ([employer]-based [employer]centive Payment System) Applicable CPT: 42279, 40150 CHECK ALL THAT ARE MET: [] Measure #5 (CHF): All ages. Prescribe BLACK/ARB upon discharge for patients with left ventricular systolic dysfunction. If not, the reason is clearly documented in the medical chart .[] Measure #8 (CHF): All ages. Prescribe a beta marlys upon discharge for patients with left ventricular systolic dysfunction. If not, the reason is clearly documented in the medical chart. [x] Measure #47: Advance care plan or surrogate decision maker documented in the medical record. [x] Measure #130 The provider has documented, updated, or reviewed the patients current medication list and has documented it in the patients note. [] Measure #374 (All): Send report to referring provider. [] Measure #407(Sepsis due to MSSA bacteremia): Age 18+ Patient treated with a beta-lactam antibiotic (Nafcillin, Oxacillin or Cefazolin) as definitive therapy. MEDICAL COMPLEXITYHigh complexity medical decision making (need 2/3 categories)Problem - need 4 points [x]Acute/new problem with new plan for workup (4 points, 1 max) [] Acute/new problem without additional workup (3 points, 1 max) [] Unstable chronic problem actively being managed (2 point each, 2 max) [] Stable chronic problem actively being managed (1 point each, 2 max) [] Self-limited/transient process (constipation, muscle ache, etc) (1 point each, 2 max) Data - need 4 points [x] Reviewed labs/imaging studies (1 points, 2 max) [x] Independent review of imaging (EKG, xrays, etc) (2 points, 2 max) [x] Discussed case with consult/other MD/RN (2 points, 2 max) High Risk - qualify if have one of the following: [x] Severe exacerbation of acute problem, acute mental status change, IV narcotics, monitoring drug levels (vancomycin, INR, tacrolimus etc) I spent 35 minutes on this patient's case, and 20 mins was dedicated to counseling and/or care coordination. Discussed with nephro, Bedside RN, case reviewer Time of note may not reflect time of encounter Boris Marrero M.D. Mar 07, 2020 18:35
--- NOTE | 2020-03-07 19:26 | NUR ---
NURSE HAND-OFF: Important Events on Shift:Restraints care. HD tomorrow. Patient Status: stable, restless, agitated. Diet: Regular mech soft Pending Orders:n/a Pending Results/Labs:n/a Pending MD notification:n/a Latest Vital Signs: Temperature 97.8 , Pulse 103 , B/P 141 /72 , Respiratory Rate 18 , O2 SAT 94 , Nasal Cannula, O2 Flow Rate 2.0 . Vital Sign Comment: stable Latest Mcconnell Fall Score: 75 Fall Risk: High Risk Safety Measures: Call light Within Reach, Bed Alarm Zone 1, Side Rails Side Rails x2, Bed position Low and Locked. Fall Precautions: Yellow Socks Door Sign Patient Fall Education Report given to MARY Wynne.
[2020-03-07 20:00] VITALS: BP 144/72
--- NOTE | 2020-03-07 20:21 | Neurology Progress Note ---
Interim History Interim History ROS Limited/Unobtainable: Yes Interim History confused and tangential Objective Physical Exam Last Vital Signs Date Time Temp Pulse Resp B/P (MAP) Pulse Ox O2 Delivery O2 Flow Rate FiO2 03/07/20 17:20 103 141/72 03/07/20 16:00 97.8 18 94 03/07/20 09:00 Room Air 03/04/20 06:00 2.0 97 Laboratory Tests Test 03/07/20 08:55 White Blood Count 8.2 K/UL (4.8-10.8) Red Blood Count 2.54 M/UL (4.20-5.40) L Hemoglobin 7.4 G/DL (12.0-16.0) L Hematocrit 23.1 % (37.0-47.0) L Mean Corpuscular Volume 91 FL (80-99) Mean Corpuscular Hemoglobin 29.2 PG (27.0-31.0) Mean Corpuscular Hemoglobin Concent 32.1 G/DL (32.0-36.0) Red Cell Distribution Width 15.6 % (11.6-14.8) H Platelet Count 145 K/UL (150-450) L Mean Platelet Volume 8.2 FL (6.5-10.1) Neutrophils (%) (Auto) % (45.0-75.0) Lymphocytes (%) (Auto) % (20.0-45.0) Monocytes (%) (Auto) % (1.0-10.0) Eosinophils (%) (Auto) % (0.0-3.0) Basophils (%) (Auto) % (0.0-2.0) Differential Total Cells Counted 100 Neutrophils % (Manual) 70 % (45-75) Lymphocytes % (Manual) 17 % (20-45) L Monocytes % (Manual) 11 % (1-10) H Eosinophils % (Manual) 2 % (0-3) Basophils % (Manual) 0 % (0-2) Band Neutrophils 0 % (0-8) Platelet Estimate Decreased L Platelet Morphology Normal Hypochromasia 1+ Anisocytosis 1+ Sodium Level 141 MMOL/L (136-145) Potassium Level 4.4 MMOL/L (3.5-5.1) Chloride Level 105 MMOL/L (98-107) Carbon Dioxide Level 28 MMOL/L (21-32) Anion Gap 9 mmol/L (5-15) Blood Urea Nitrogen 56 mg/dL (7-18) H Creatinine 3.9 MG/DL (0.55-1.30) H Estimat Glomerular Filtration Rate 11.3 mL/min (>60) Glucose Level 110 MG/DL (74-106) H Calcium Level 7.9 MG/DL (8.5-10.1) L Phosphorus Level 3.9 MG/DL (2.5-4.9) Magnesium Level 1.8 MG/DL (1.8-2.4) Head: normocophalic Neck: no rigidity EENT: benign Neurologic Exam Mental Status: awake, alert Cranial Nerve II: visual juarez Cranial Nerves III, IV, : PERRLA, EOMI Cranial Nerve V: normal facial sensations Objective ao x 2 flapping noted tangential non focal Impression/Recommendations Problems: (1) Anemia (2) UTI (urinary tract infection) (3) Hypertension (4) ESRF (end stage renal failure) (5) Noncompliance (6) Head injury, acute (7) Cocaine abuse (8) Acute exacerbation of CHF (congestive heart failure) (9) Pain syndrome, chronic (10) Elevated troponin I level (11) Abdominal discomfort (12) Abnormal LFTs Diagnostic Impression acute encephalopathy, likely uremic agitation tele seroquel 25 mg bid standing HD per nephro PT OT as able no opioids Hay Johnson MD Mar 07, 2020 20:21
[2020-03-07] MEDS: LORazepam Inj 2mg/ml 1ml IV PRN (20:24)
--- NOTE | 2020-03-07 20:30 | NUR ---
NURSE NOTES: Pt is in bed, awake and very loud. Screaming " nurse" " nurse" for random little things. Vitals stable. Pt is on room air now. Breathing ok. No SOB. Pt has bilat soft wrist restraints. Pt is constantly trying to get out of restraints and sometimes successful in getting out of restraints. Very high fall risk. Pt states that she wants to go out to smoke. Ativan given as ordered PRN. Pt was fed, repositioned, reoriented. Pt is confused at times, very aggressive and uncooperative. Fall precaution in place, bed alarm on, side rails up, call light within reach. Patient will be monitored.
[2020-03-08] VITALS: BP 122/78
--- NOTE | 2020-03-08 00:35 | Psychiatry Consultation ---
Psychiatry Consultation Psychiatry Consultation Chief Complaint: Pain History of Present Illness: history of GERD, hypertension, organic brain syndrome who is confused, disoriented. Has waxing and waning consciousness. Not able to be engaged. Has episodes of agitation. Patient attempts to pull out lines and her oxygen mask. PAST PSYCHIATRIC HISTORY: Dementia. PAST MEDICAL HISTORY: Significant for pneumonia, renal insufficiency. ALLERGIES: No known drug allergies. SUBSTANCE ABUSE HISTORY: No known history of illicit drug use or alcohol. MENTAL STATUS EXAMINATION: Patient is having waxing and waning consciousness. Mood is anxious. Affect is blunted, congruent with mood. Thought process is concrete. Thought content, no suicidal or homicidal ideation. Cognition is impaired. Insight and judgment is impaired. ASSESSMENT: [place] I Acute metabolic encephalopathy. Dementia. [place] II Deferred. [place] III As above. [place] IV Low. [place] V 20. PLAN: 1. We will start patient on Haldol p.r.n. 2. Bilateral soft restraints. Allergies: Coded Allergies: SULFA (SULFONAMIDE ANTIBIOTICS) (Verified Allergy, Unknown, 02/24/20) Objective Data Height (Feet): 5 Height (Inches): 4.00 Weight (Pounds): 160 London Mckeon MD Mar 08, 2020 00:35
--- NOTE | 2020-03-08 00:46 | Cardiology Progress Note ---
Subjective DATE OF SERVICE: Mar 07, 2020 No new complaints Awaiting SNF and dialysis unit acceptance. BP parameters remain stable. S/P HD/UF today 2D Echo: EF 30%, severe pulm HTN with PAP 90mmHg, global and regional wall motion abnormalities Objective Last 24 Hour Vital Signs Date Time Temp Pulse Resp B/P (MAP) Pulse Ox O2 Delivery O2 Flow Rate FiO2 03/07/20 21:00 Room Air 03/07/20 20:54 88 18 140/80 97 03/07/20 20:24 90 18 142/82 97 03/07/20 20:23 142/82 03/07/20 20:00 98.1 102 18 144/72 (96) 94 03/07/20 17:20 103 141/72 03/07/20 17:20 141/72 03/07/20 16:00 97.8 103 18 141/72 (95) 94 03/07/20 14:29 125/75 03/07/20 12:28 128/63 03/07/20 12:00 97.5 100 18 128/63 (84) 96 03/07/20 09:00 Room Air 03/07/20 08:46 107 153/79 03/07/20 08:45 153/79 03/07/20 08:00 97.7 107 18 153/79 (103) 94 03/07/20 05:29 140/80 03/07/20 05:29 140/80 03/07/20 04:00 98.9 96 19 140/80 (100) 92 ROS: unchanged from my assessment of 02/25/20 HEENT: normal ENT inspection RHYTHM: NSR, ST LUNGS: diminished breath sounds, rales bilaterally - few, other - Right chest wall cath site with no active bleeding CARDIAC: normal rate, regular rhythm, normal S1 and S2, systolic murmur - 2/6 systolic murmur at LLSB, gallop/S4 ABDOMEN: normal bowel sounds, non tender, soft, no organomegaly EXTREMITIES: normal range of motion, non-tender, +1 edema Laboratory Tests Test 03/07/20 08:55 White Blood Count 8.2 K/UL (4.8-10.8) Red Blood Count 2.54 M/UL (4.20-5.40) L Hemoglobin 7.4 G/DL (12.0-16.0) L Hematocrit 23.1 % (37.0-47.0) L Mean Corpuscular Volume 91 FL (80-99) Mean Corpuscular Hemoglobin 29.2 PG (27.0-31.0) Mean Corpuscular Hemoglobin Concent 32.1 G/DL (32.0-36.0) Red Cell Distribution Width 15.6 % (11.6-14.8) H Platelet Count 145 K/UL (150-450) L Mean Platelet Volume 8.2 FL (6.5-10.1) Neutrophils (%) (Auto) % (45.0-75.0) Lymphocytes (%) (Auto) % (20.0-45.0) Monocytes (%) (Auto) % (1.0-10.0) Eosinophils (%) (Auto) % (0.0-3.0) Basophils (%) (Auto) % (0.0-2.0) Differential Total Cells Counted 100 Neutrophils % (Manual) 70 % (45-75) Lymphocytes % (Manual) 17 % (20-45) L Monocytes % (Manual) 11 % (1-10) H Eosinophils % (Manual) 2 % (0-3) Basophils % (Manual) 0 % (0-2) Band Neutrophils 0 % (0-8) Platelet Estimate Decreased L Platelet Morphology Normal Hypochromasia 1+ Anisocytosis 1+ Sodium Level 141 MMOL/L (136-145) Potassium Level 4.4 MMOL/L (3.5-5.1) Chloride Level 105 MMOL/L (98-107) Carbon Dioxide Level 28 MMOL/L (21-32) Anion Gap 9 mmol/L (5-15) Blood Urea Nitrogen 56 mg/dL (7-18) H Creatinine 3.9 MG/DL (0.55-1.30) H Estimat Glomerular Filtration Rate 11.3 mL/min (>60) Glucose Level 110 MG/DL (74-106) H Calcium Level 7.9 MG/DL (8.5-10.1) L Phosphorus Level 3.9 MG/DL (2.5-4.9) Magnesium Level 1.8 MG/DL (1.8-2.4) Assessment/Plan Assessment/Plan Metabolic encephalopathy ESRD Acute myocardial ischemia/possible NSTE myocardial infarction Ischemic and cocaine cardiomyopathy Severe pulmonary hypertension Acute on chronic systolic CHF Hypertensive urgency resolved Anemia of CKD Hypomagnesemia HD/UF per renal PRBC tx Anti-plt therapy Maximizing antiHTN and anti-failure regimen further, including ACEi now. Epo/Fe++; consider PRBC transfusion Magnesium replacement as needed Sourav Montejo MD Mar 08, 2020 00:46
[2020-03-08] MEDS: LORazepam Inj 2mg/ml 1ml IV PRN ×2 (02:45→21:15)
[2020-03-08] MEDS: Morphine Sulfate 2mg/ml Inj(IV/IM USE ONLY) IVP PRN ×4 (02:45→22:00)
[2020-03-08 04:00] VITALS: BP 115/84
--- NOTE | 2020-03-08 04:00 | NUR ---
NURSE NOTES: Pt is in bed, screaming and being verbally abusive to the nursing staff. Pt is non-compliant and has episodes of confusions. Pt is deaf.
[2020-03-08] MEDS: Nitroglycerin 2% oint pkt TOPIC SCH ×3 (06:00→17:09)
[2020-03-08] MEDS: HydrALAZINE 50mg tab ORAL SCH ×3 (06:00→21:14)
[2020-03-08] MEDS: Heparin 5000 units/ml inj SUBQ SCH ×3 (06:00→21:17)
--- NOTE | 2020-03-08 07:25 | NUR ---
NURSE HAND-OFF: Important Events on Shift:[Pt is very agitated, screaming and trying to walk away from hospital] Patient Status: [Stable] Diet: [] Pending Orders: [] Pending Results/Labs:[] Pending MD notification:[] Latest Vital Signs: Temperature 98.8 , Pulse 98 , B/P 120 /78 , Respiratory Rate 18 , O2 SAT 94 , Nasal Cannula, O2 Flow Rate 2.0 . Vital Sign Comment: [] Latest Mcconnell Fall Score: 75 Fall Risk: High Risk Safety Measures: Call light Within Reach, Bed Alarm Zone 1, Side Rails Side Rails x2, Bed position Low and Locked. Fall Precautions: Yellow Socks Door Sign Patient Fall Education Report given to [MARY Conteh. Informed that pt is high fall risk, Fall precaution in place. ].
--- NOTE | 2020-03-08 07:34 | NUR ---
NURSE NOTES: received report from MARY Wynne. patient in bed. a&Ox name and place. verbally responsive. confused. forgetful at times. no respiratory distress noted on room air. IV on right upper arm. intact. flushed. perma cath on right upper arm, dressing intact. patient for dialysis today, RN will confirm with Marcelina Hernandez Nurse no bleeding noted. soft restraint on both wrist for safety, pulling out devices. skin intact. pulse present. no swelling. bed in the lowest position and locked. call light within reach. alarm on. will continue to provide plan of care.
[2020-03-08 07:38] LABS: HEMATOCRIT 22.6 % (37.0-47.0); HEMOGLOBIN 7.1 G/DL (12.0-16.0); MEAN CORPUSCULAR VOLUME 94 FL (80-99); PLATELET COUNT 158 K/UL (150-450); RED BLOOD COUNT 2.41 M/UL (4.20-5.40); RED CELL DISTRIBUTION WIDTH 15.2 % (11.6-14.8); WHITE BLOOD COUNT 9.3 K/UL (4.8-10.8)
[2020-03-08 07:44] LABS: CALCIUM 8.2 MG/DL (8.5-10.1); CREATININE 4.8 MG/DL (0.55-1.30); POTASSIUM 4.5 MMOL/L (3.5-5.1)
[2020-03-08 08:00] VITALS: BP 125/73
--- NOTE | 2020-03-08 08:02 | NUR ---
NURSE NOTES: RN spoke to David, DIalysis nurse. She will come later on at night and to hold BP medications
--- NOTE | 2020-03-08 08:45 | Nephrology Progress Note ---
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 #troponemia #CHF #h/o polysubtance abuse, cocaine abuser #HTN #anemia - next HD tomorrow - monitor drainage around the catheter site - monitor hemoglobin level - pending outpatient HD placement - cardiology eval - 2D Echo: EF30%, severe pulm HTN with PAP 90mmHg, global and regional wall motion abnormalities - switch to nifedipine to 60mg BID - add benazopril 20mg daily - increase hydralazine 100 TID -continue epo - monitor electrolytes time spent 65 min Subjective ROS Limited/Unobtainable: Yes Subjective reported drainage around hd cath site culture sent continue to monitor - might need to exchange hemoglobin stable agitated at times 2D Echo: EF30%, severe pulm HTN with PAP 90mmHg, global and regional wall motion abnormalities remains confused Objective Objective Last 24 Hour Vital Signs Date Time Temp Pulse Resp B/P (MAP) Pulse Ox O2 Delivery O2 Flow Rate FiO2 03/08/20 06:00 120/78 03/08/20 06:00 120/78 03/08/20 04:00 98.8 98 18 115/84 (94) 94 03/08/20 03:15 98 18 120/78 96 03/08/20 02:45 98 18 125/80 94 03/08/20 00:00 98.2 99 18 122/78 (93) 94 03/07/20 21:00 Room Air 03/07/20 20:54 88 18 140/80 97 03/07/20 20:24 90 18 142/82 97 03/07/20 20:23 142/82 03/07/20 20:00 98.1 102 18 144/72 (96) 94 03/07/20 17:20 103 141/72 03/07/20 17:20 141/72 03/07/20 16:00 97.8 103 18 141/72 (95) 94 03/07/20 14:29 125/75 03/07/20 12:28 128/63 03/07/20 12:00 97.5 100 18 128/63 (84) 96 03/07/20 09:00 Room Air 03/07/20 08:46 107 153/79 Intake and Output 03/07/20 03/08/20 19:00 07:00 Intake Total 960 ml 400 ml Balance 960 ml 400 ml Intake Oral 960 ml Other 400 ml # Voids 1 4 Laboratory Tests 03/07/20 08:55: White Blood Count 8.2, Red Blood Count 2.54L, Hemoglobin 7.4L, Hematocrit 23.1L, Mean Corpuscular Volume 91, Mean Corpuscular Hemoglobin 29.2, Mean Corpuscular Hemoglobin Concent 32.1, Red Cell Distribution Width 15.6H, Platelet Count 145L, Mean Platelet Volume 8.2, Neutrophils (%) (Auto) , Lymphocytes (%) (Auto) , Monocytes (%) (Auto) , Eosinophils (%) (Auto) , Basophils (%) (Auto) , Differential Total Cells Counted 100, Neutrophils % (Manual) 70, Lymphocytes % (Manual) 17L, Monocytes % (Manual) 11H, Eosinophils % (Manual) 2, Basophils % (Manual) 0, Band Neutrophils 0, Platelet Estimate DecreasedL, Platelet Morphology Normal, Hypochromasia 1+, Anisocytosis 1+, Sodium Level 141, Potassium Level 4.4, Chloride Level 105, Carbon Dioxide Level 28, Anion Gap 9, Blood Urea Nitrogen 56H, Creatinine 3.9H, Estimat Glomerular Filtration Rate 11.3, Glucose Level 110H, Calcium Level 7.9L, Phosphorus Level 3.9, Magnesium Level 1.8 03/08/20 06:30: White Blood Count 9.3, Red Blood Count 2.41L, Hemoglobin 7.1L, Hematocrit 22.6L, Mean Corpuscular Volume 94, Mean Corpuscular Hemoglobin 29.4, Mean Corpuscular Hemoglobin Concent 31.4L, Red Cell Distribution Width 15.2H, Platelet Count 158, Mean Platelet Volume 8.0, Neutrophils (%) (Auto) , Lymphocytes (%) (Auto) , Monocytes (%) (Auto) , Eosinophils (%) (Auto) , Basophils (%) (Auto) , Neutr ophils % (Manual) [Pending], Lymphocytes % (Manual) [Pending], Platelet Estimate [Pending], Platelet Morphology [Pending], Sodium Level 137, Potassium Level 4.5, Chloride Level 103, Carbon Dioxide Level 27, Anion Gap 7, Blood Urea Nitrogen 73H, Creatinine 4.8H, Estimat Glomerular Filtration Rate 8.9, Glucose Level 100, Calcium Level 8.2L Height (Feet): 5 Height (Inches): 4.00 Weight (Pounds): 160 Ace Munroe M.D. Mar 08, 2020 08:45
[2020-03-08] MEDS: Aspirin Baby 81mg ORAL SCH (09:00)
--- NOTE | 2020-03-08 09:57 | NUR ---
NURSE NOTES: furosemide and seroquel refused by patient. Rn educated patient on risk and benefits of refusing medication. patient continuously refuses
[2020-03-08 10:05] LABS: % IRON SATURATION 24 % (15-50); IRON 60 ug/dL (50-175); TOTAL IRON BINDING CAPACITY 254 ug/dL (250-450)
[2020-03-08 10:21] LABS: FERRITIN 136 NG/ML (8-388)
--- NOTE | 2020-03-08 10:30 | NUR ---
[facility] ANALYSIS LABORATORY ASSISTANT NOTE HEP RESULTS FAXED TO MEGHAN Ling [phone]
--- NOTE | 2020-03-08 11:12 | NUR ---
NURSE NOTES: Rn spoke with young dialysis nurse and was instructed to hold nitroglycerin
--- NOTE | 2020-03-08 11:13 | NUR ---
NURSE NOTES: Patient denies chest pain at this time
--- NOTE | 2020-03-08 11:20 | NUR ---
PT NOTE Attempted to see patient for PT treatment. Patient confused, uncooperative, declining to participate with PT at this time. Wero HERNANDEZ notified.
[2020-03-08 12:00] VITALS: BP 138/74
--- NOTE | 2020-03-08 12:56 | NUR ---
BIOMEDICAL ENGINEERING DIRECTOR NOTE S/W CHAYO AT [facility] INTAKE [phone]. CONFIRMED RECEIPT OF HEP PANEL RESULTS. PER CHAYO, ALL MEDICAL RECORDS HAVE BEEN FORWARDED TO [facility] AND PENDING FINALIZATION AND CONFIRMATION OF CHAIR DAYS AND TIME. PER CHAYO, FOLLOW UP CAN BE MADE WITH YADI AT [facility] [phone] EXT [phone].
--- NOTE | 2020-03-08 15:19 | General Progress Note ---
Subjective Date patient seen: Mar 08, 2020 ROS Limited/Unobtainable: Yes Allergies: Coded Allergies: SULFA (SULFONAMIDE ANTIBIOTICS) (Verified Allergy, Unknown, 02/24/20) Subjective Patient still altered and uncooperative today. No acute events per nursing. Further subjective history unable to be obtained due to ALOC Review of systems: Unable to be obtained due to ALOC Objective Last 24 Hour Vital Signs Date Time Temp Pulse Resp B/P (MAP) Pulse Ox O2 Delivery O2 Flow Rate FiO2 03/08/20 12:00 97.7 93 19 138/74 (95) 95 03/08/20 09:00 Room Air 03/08/20 08:00 98.0 98 18 125/73 (90) 96 03/08/20 06:00 120/78 03/08/20 06:00 120/78 03/08/20 04:00 98.8 98 18 115/84 (94) 94 03/08/20 03:15 98 18 120/78 96 03/08/20 02:45 98 18 125/80 94 03/08/20 00:00 98.2 99 18 122/78 (93) 94 03/07/20 21:00 Room Air 03/07/20 20:54 88 18 140/80 97 03/07/20 20:24 90 18 142/82 97 03/07/20 20:23 142/82 03/07/20 20:00 98.1 102 18 144/72 (96) 94 03/07/20 17:20 103 141/72 03/07/20 17:20 141/72 03/07/20 16:00 97.8 103 18 141/72 (95) 94 Intake and Output 03/07/20 03/08/20 19:00 07:00 Intake Total 960 ml 400 ml Balance 960 ml 400 ml Intake Oral 960 ml Other 400 ml # Voids 1 4 Laboratory Tests 03/08/20 06:30: White Blood Count 9.3, Red Blood Count 2.41L, Hemoglobin 7.1L, Hematocrit 22.6L, Mean Corpuscular Volume 94, Mean Corpuscular Hemoglobin 29.4, Mean Corpuscular Hemoglobin Concent 31.4L, Red Cell Distribution Width 15.2H, Platelet Count 158, Mean Platelet Volume 8.0, Neutrophils (%) (Auto) , Lymphocytes (%) (Auto) , Monocytes (%) (Auto) , Eosinophils (%) (Auto) , Basophils (%) (Auto) , Differential Total Cells Counted 100, Neutrophils % (Manual) 66, Lymphocytes % (Manual) 17L, Monocytes % (Manual) 10, Eosinophils % (Manual) 5H, Basophils % (Manual) 2, Band Neutrophils 0, Platelet Estimate Adequate, Platelet Morphology Normal, Hypochromasia 2+, Anisocytosis 1+, Target Cells Occasional, Sodium Level 137, Potassium Level 4.5, Chloride Level 103, Carbon Dioxide Level 27, Anion Gap 7, Blood Urea Nitrogen 73H, Creatinine 4.8H, Estimat Glomerular Filtration Rate 8.9, Glucose Level 100, Calcium Level 8.2L, Iron Level 60, Total Iron Binding Capacity 254, Percent Iron Saturation 24, Unsaturated Iron Binding 194, Ferritin 136 Height (Feet): 5 Height (Inches): 4.00 Weight (Pounds): 160 Objective General: WDWN female in NAD, Altered. Resting, awake, confused, uncooperative HEENT: Normocephalic cephalic atraumatic, pupils equal round reactive to light and accommodation, nares patent and no symmetrical, no tonsillar exudates, mucous membranes moist CV: Regular rate regular rhythm, no murmurs, rubs, or gallops. HD line C/d/i. Pulm: Lungs clear to auscultation bilaterally. No wheezes, rhonchi, or rales GI: Soft, nontender, nondistended, bowel sounds present Neuro: CN 2-12 intact bilaterally, no focal signs. Moving all extremities Ext: No lower extremity edema bilaterally Skin: no rashes lesions or ulcers Msk: Joints symmetrical in upper extremity and lower extremity bilaterally, no joint swelling. Lymph: No lymphadenopathy in upper extremity and lower extremity Assessment/Plan Assessment/Plan: 74 yo F with PMHX CHF. CKD4, opioid abuser, chronic untraceable pain syndrome, admitted for CHF exacerbation and fluid overload # Acute systolic heart failure exacerbation. # s/p CKD5 # Now ESRD # Acute metabolic encephalopathy - stable - lasix 60mg BID - fluid restriction - HD with Dr. Munroe, need to coordinate care - Discharge pending dialysis center availability - per case liner, [facility] requires hepatitis total core antibody test prior to accepting, results finalized. Now awaiting [facility] approval - No family or surrogate decision makers available at this time. Patient lacks capacity. Completely altered. Social work consulted. - At this time patient unable to make their own health care decisions. Procedure or treatment is necessary to alleviate severe pain and/or, if not performed, would lead to serious disability or . - patient unable to maker her own health care decision likely due to uremic encephalopathy I also believe HD is necessary to improved her current condition therefore we will proceed with permcath placement as renal replacement therapy is felt to prevent major disability - IR placed HD catheter. - Renal/heart healthy diet #Acute blood loss anemia 2/2 tunneled cath line removal > no further signs of bleeding - PRBC transfusion 02/26 with appropriate response - Patient still unable to consent and no surrogate decision maker available. Agree to proceed due to emergent nature. #Elevated alk phos #elevated GGT > Suspect could be due to hepatic congestion from heart failure - abdominal ultrasound: gallbladder thickening - > D/w Surgery. No suspicion for cholecystitis - Appreciate gen surgery recommendations: D/w Dr. Lema #Acute systolic heart failure exacerbation #Elevated troponin, suspect due to demand ischemia and ESRD. Appreciate cardiolo gy input #essential hypertension - EF 20-25%. Global hypokinesis D/w Cardiology. Ischemia vs. history of cocaine use - asa 81 - Increased benazepril to 40mg Po daily by Cardiology - HD per nephrology - appreciate cardiology recommendations #Urinary tract infection - blood cultures: NGTD - urine culture: mixed results - s/p Rocephin (02/23 started) # LE edema - US LE to r/o dvt: pending. D/w nursing again who will follow up # Opioid abuse #H/o cocaine abuse - avoid unnecessary narcotic FENPPX DVTPPX: Diet: renal Lines: tunneled line PT/OT: pending Code status: full per policy Dispo: SNF Reason for Continued Hospitalization: ESRD - needs [facility] approval - hepatitis total core antibody test pending (test is sent out to outside lab so may take several days) MIPS ([employer]-based Incentive Payment System) Applicable CPT: 97468, 36944 CHECK ALL THAT ARE MET: [] Measure #5 (CHF): All ages. Prescribe BLACK/ARB upon discharge for patients with left ventricular systolic dysfunction. If not, the reason is clearly documented in the medical chart .[] Measure #8 (CHF): All ages. Prescribe a beta marlys upon discharge for patients with left ventricular systolic dysfunction. If not, the reason is clearly documented in the medical chart. [x] Measure #47: Advance care plan or surrogate decision maker documented in the medical record. [x] Measure #130 The provider has documented, updated, or reviewed the patients current medication list and has documented it in the patients note. [] Measure #374 (All): Send report to referring provider. [] Measure #407(Sepsis due to MSSA bacteremia): Age 18+ Patient treated with a beta-lactam antibiotic (Nafcillin, Oxacillin or Cefazolin) as definitive therapy. MEDICAL COMPLEXITYHigh complexity medical decision making (need 2/3 categories)Problem - need 4 points [x]Acute/new problem with new plan for workup (4 points, 1 max) [] Acute/new problem without additional workup (3 points, 1 max) [] Unstable chronic problem actively being managed (2 point each, 2 max) [] Stable chronic problem actively being managed (1 point each, 2 max) [] Self-limited/transient process (constipation, muscle ache, etc) (1 point each, 2 max) Data - need 4 points [x] Reviewed labs/imaging studies (1 points, 2 max) [x] Independent review of imaging (EKG, xrays, etc) (2 points, 2 max) [x] Discussed case with consult/other MD/RN (2 points, 2 max) High Risk - qualify if have one of the following: [x] Severe exacerbation of acute problem, acute mental status change, IV narcotics, monitoring drug levels (vancomycin, INR, tacrolimus etc) I spent 38 minutes on this patient's case, and 23 mins was dedicated to counseling and/or care coordination. Discussed with nephro, Bedside RN, case liner regarding hepatitis antibody results and SNF placement. Time of note may not reflect time of encounter Boris Marrero M.D. Mar 08, 2020 15:19
[2020-03-08 16:00] VITALS: BP 120/84
--- NOTE | 2020-03-08 16:18 | NUR ---
CASE MANAGEMENT:REVIEW SI;ENCEPHALOPATHY. ANEMIA. ESRD. ALOC. 98.8 98 19 138/74 94% ON RA H/H 7.1/22.6 BUN 73 CR 4.8 IS;SEROQUEL PO Q12 NIFEDIPINE PO BID ATIVAN IV Q4 PRN EPOETIN [place] PO Q8 HEPARIN SQ Q8 MED SURG STATUS DCP;FROM HOME PLAN; DC PLANNING TO SNF OPT HD PENDING CHAIR TIME CONFIRMATION WITH MEGHAN
--- NOTE | 2020-03-08 17:37 | Surgery Progress Note ---
Surgery Progress Note Subjective Additional Comments labs improved exam stable tolerating diet no n/v Objective Last 24 Hour Vital Signs Date Time Temp Pulse Resp B/P (MAP) Pulse Ox O2 Delivery O2 Flow Rate FiO2 03/08/20 16:00 98.0 100 20 120/84 (96) 95 03/08/20 12:00 97.7 93 19 138/74 (95) 95 03/08/20 09:00 Room Air 03/08/20 08:00 98.0 98 18 125/73 (90) 96 03/08/20 06:00 120/78 03/08/20 06:00 120/78 03/08/20 04:00 98.8 98 18 115/84 (94) 94 03/08/20 03:15 98 18 120/78 96 03/08/20 02:45 98 18 125/80 94 03/08/20 00:00 98.2 99 18 122/78 (93) 94 03/07/20 21:00 Room Air 03/07/20 20:54 88 18 140/80 97 03/07/20 20:24 90 18 142/82 97 03/07/20 20:23 142/82 03/07/20 20:00 98.1 102 18 144/72 (96) 94 I&O Intake and Output 03/07/20 03/08/20 19:00 07:00 Intake Total 960 ml 400 ml Balance 960 ml 400 ml Intake Oral 960 ml Other 400 ml # Voids 1 4 Cardiovascular: RSR Respiratory: clear Abdomen: soft, non-tender, present bowel sounds Extremities: no tenderness, no cyanosis Laboratory Tests Test 03/08/20 06:30 White Blood Count 9.3 K/UL (4.8-10.8) Red Blood Count 2.41 M/UL (4.20-5.40) L Hemoglobin 7.1 G/DL (12.0-16.0) L Hematocrit 22.6 % (37.0-47.0) L Mean Corpuscular Volume 94 FL (80-99) Mean Corpuscular Hemoglobin 29.4 PG (27.0-31.0) Mean Corpuscular Hemoglobin Concent 31.4 G/DL (32.0-36.0) L Red Cell Distribution Width 15.2 % (11.6-14.8) H Platelet Count 158 K/UL (150-450) Mean Platelet Volume 8.0 FL (6.5-10.1) Neutrophils (%) (Auto) % (45.0-75.0) Lymphocytes (%) (Auto) % (20.0-45.0) Monocytes (%) (Auto) % (1.0-10.0) Eosinophils (%) (Auto) % (0.0-3.0) Basophils (%) (Auto) % (0.0-2.0) Differential Total Cells Counted 100 Neutrophils % (Manual) 66 % (45-75) Lymphocytes % (Manual) 17 % (20-45) L Monocytes % (Manual) 10 % (1-10) Eosinophils % (Manual) 5 % (0-3) H Basophils % (Manual) 2 % (0-2) Band Neutrophils 0 % (0-8) Platelet Estimate Adequate Platelet Morphology Normal Hypochromasia 2+ Anisocytosis 1+ Target Cells Occasional Sodium Level 137 MMOL/L (136-145) Potassium Level 4.5 MMOL/L (3.5-5.1) Chloride Level 103 MMOL/L (98-107) Carbon Dioxide Level 27 MMOL/L (21-32) Anion Gap 7 mmol/L (5-15) Blood Urea Nitrogen 73 mg/dL (7-18) H Creatinine 4.8 MG/DL (0.55-1.30) H Estimat Glomerular Filtration Rate 8.9 mL/min (>60) Glucose Level 100 MG/DL (74-106) Calcium Level 8.2 MG/DL (8.5-10.1) L Iron Level 60 ug/dL (50-175) Total Iron Binding Capacity 254 ug/dL (250-450) Percent Iron Saturation 24 % (15-50) Unsaturated Iron Binding 194 ug/dL (112-346) Ferritin 136 NG/ML (8-388) Plan Problems: (1) Abnormal LFTs Assessment & Plan: Patient identified to have elevated LFTs on admission. Complaints abdominal discomfort. No imaging currently performed. Abdominal ultrasound ordered. Trend labs IV fluids will monitor recommendations with evaluation of medications and serial abdominal exams. Exam is limited due to patient having limited ability to cooperate. Gallbladder demonstrates focal wall thickening and edema, gallbladder wall just over 4 mm thick. There is also small amount of pericholecystic fluid No gallstones. Sonographic Lewis's sign is negative. Common bile duct measures 5 mm in diameter. No intrahepatic biliary ductal dilatation. Liver demonstrates slightly increased echogenicity, no focal abnormality. Portal vein and hepatic veins are patent. Pancreas is unremarkable. Spleen is unremarkable. Left kidney measures 7.7 cm in length. Right kidney measures 8 cm length. Both kidneys demonstrate increased echogenicity There is no hydronephrosis. No focal abnormality . Abdominal aorta is partially obscured by bowel gas, visualized portions are non-aneurysmal . Right pleural effusion incidentally noted Impression: Somewhat limited exam, as described Increased renal echogenicity bilaterally, indicating medical renal disease. Incidental finding of bilateral renal cysts Mildly increased hepatic echogenicity, likely medical renal disease Negative for gallstones. There is focal gallbladder wall thickening and some pericholecystic fluid. This is probably due to edema of systemic causes but the possibility of acalculous acute cholecystitis should also be considered Right pleural effusion Note incompletely visualized distal abdominal aorta (2) Abdominal discomfort Assessment & Plan: No significant bowel distention. Discomfort on palpation asking for pain medications. No nausea vomiting fever chills. Okay for diet as tolerated we will follow with serial exams Thank allowing participation's care (3) Anemia (4) UTI (urinary tract infection) (5) Hypertension (6) ESRF (end stage renal failure) (7) Noncompliance (8) Head injury, acute (9) Cocaine abuse (10) Acute exacerbation of CHF (congestive heart failure) (11) Pain syndrome, chronic (12) Elevated troponin I level Blu Lema Mar 08, 2020 17:37
--- NOTE | 2020-03-08 19:31 | NUR ---
NURSE HAND-OFF: Important Events on Shift: dialysis pending Patient Status: stable Diet: regular mech soft chopped Pending Orders: n/a Pending Results/Labs:n/a Pending MD notification:n/a Latest Vital Signs: Temperature 98.0 , Pulse 100 , B/P 120 /84 , Respiratory Rate 20 , O2 SAT 95 , Nasal Cannula, O2 Flow Rate 2.0 . Vital Sign Comment: stable Latest Mcconnell Fall Score: 75 Fall Risk: High Risk Safety Measures: Call light Within Reach, Bed Alarm Zone 1, Side Rails Side Rails x2, Bed position Low and Locked. Fall Precautions: Yellow Socks Door Sign Patient Fall Education Report given to MARY Thrasher.
[2020-03-08 20:00] VITALS: BP 169/93
[2020-03-08] MEDS: Epoetin Alfa-EPBX(ESRD on dialysis)3000 units/ml vial SUBQ SCH (21:00)
--- NOTE | 2020-03-08 21:20 | NUR ---
NURSE NOTES: The patient is started on dialysis is alert, has some level of agitations and restlessness but a calm environment was provided.The patient is on a bilateral soft wrist restrain for safety reason because she has been trying to pull up her right upper chest PermCath especially during dialysis.Will continue to monitor as indicated
--- NOTE | 2020-03-08 21:38 | Neurology Progress Note ---
Interim History Interim History ROS Limited/Unobtainable: Yes Interim History remains somnolent poor interaction Objective Physical Exam Last Vital Signs Date Time Temp Pulse Resp B/P (MAP) Pulse Ox O2 Delivery O2 Flow Rate FiO2 03/08/20 21:14 208/96 03/08/20 16:00 98.0 100 20 95 03/08/20 09:00 Room Air 03/04/20 06:00 2.0 97 Laboratory Tests Test 03/08/20 06:30 White Blood Count 9.3 K/UL (4.8-10.8) Red Blood Count 2.41 M/UL (4.20-5.40) L Hemoglobin 7.1 G/DL (12.0-16.0) L Hematocrit 22.6 % (37.0-47.0) L Mean Corpuscular Volume 94 FL (80-99) Mean Corpuscular Hemoglobin 29.4 PG (27.0-31.0) Mean Corpuscular Hemoglobin Concent 31.4 G/DL (32.0-36.0) L Red Cell Distribution Width 15.2 % (11.6-14.8) H Platelet Count 158 K/UL (150-450) Mean Platelet Volume 8.0 FL (6.5-10.1) Neutrophils (%) (Auto) % (45.0-75.0) Lymphocytes (%) (Auto) % (20.0-45.0) Monocytes (%) (Auto) % (1.0-10.0) Eosinophils (%) (Auto) % (0.0-3.0) Basophils (%) (Auto) % (0.0-2.0) Differential Total Cells Counted 100 Neutrophils % (Manual) 66 % (45-75) Lymphocytes % (Manual) 17 % (20-45) L Monocytes % (Manual) 10 % (1-10) Eosinophils % (Manual) 5 % (0-3) H Basophils % (Manual) 2 % (0-2) Band Neutrophils 0 % (0-8) Platelet Estimate Adequate Platelet Morphology Normal Hypochromasia 2+ Anisocytosis 1+ Target Cells Occasional Sodium Level 137 MMOL/L (136-145) Potassium Level 4.5 MMOL/L (3.5-5.1) Chloride Level 103 MMOL/L (98-107) Carbon Dioxide Level 27 MMOL/L (21-32) Anion Gap 7 mmol/L (5-15) Blood Urea Nitrogen 73 mg/dL (7-18) H Creatinine 4.8 MG/DL (0.55-1.30) H Estimat Glomerular Filtration Rate 8.9 mL/min (>60) Glucose Level 100 MG/DL (74-106) Calcium Level 8.2 MG/DL (8.5-10.1) L Iron Level 60 ug/dL (50-175) Total Iron Binding Capacity 254 ug/dL (250-450) Percent Iron Saturation 24 % (15-50) Unsaturated Iron Binding 194 ug/dL (112-346) Ferritin 136 NG/ML (8-388) Head: normocophalic Neck: no rigidity EENT: benign Neurologic Exam Mental Status: awake, alert Cranial Nerve II: visual juarez Cranial Nerves III, IV, : PERRLA, EOMI Cranial Nerve V: normal facial sensations Objective ao x 2 flapping noted tangential non focal Impression/Recommendations Problems: (1) Anemia (2) UTI (urinary tract infection) (3) Hypertension (4) ESRF (end stage renal failure) (5) Noncompliance (6) Head injury, acute (7) Cocaine abuse (8) Acute exacerbation of CHF (congestive heart failure) (9) Pain syndrome, chronic (10) Elevated troponin I level (11) Abdominal discomfort (12) Abnormal LFTs Diagnostic Impression acute encephalopathy, likely uremic agitation tele seroquel 25 mg bid standing HD per nephro PT OT as able no opioids Hay Johnson MD Mar 08, 2020 21:38
--- NOTE | 2020-03-08 23:02 | Psychiatric Progress Note ---
Psychiatry Progress Note Psychiatry Progress Note Medications Current Medications Medications (Trade) Dose Ordered Sig/Sugey Route PRN Reason Start Time Stop Time Status Last Admin Dose Admin Acetaminophen (Tylenol) 650 mg Q6H PRN ORAL Mild Pain (Pain Scale 1-3) 02/25/20 03:30 03/26/20 03:29 03/02/20 10:17 Acetaminophen/ Hydrocodone Bitart (Pontiac 5/325) 1 tab Q4H PRN ORAL Moderate Pain (Pain Scale 4-6) 03/02/20 09:00 03/09/20 08:59 Al Hydroxide/Mg Hydroxide (Mylanta II) 30 ml Q6H PRN ORAL Abdominal cramps 03/04/20 13:00 04/03/20 12:59 Aspirin (ASA) 81 mg DAILY ORAL 02/25/20 09:00 04/10/20 08:59 03/08/20 09:00 Benazepril HCl (Lotensin) 40 mg DAILY ORAL 03/01/20 09:00 03/31/20 08:59 03/07/20 08:45 Calcium Acetate (Phoslo) 667 mg TIAC ORAL 02/27/20 06:30 05/27/20 06:29 03/08/20 15:47 Diphenhydramine HCl (Benadryl) 50 mg Q6H PRN ORAL Itching 02/25/20 03:30 03/26/20 03:29 03/08/20 21:14 Epoetin Mychal (Epoetin Mychal(ESRD on dialysis)) 6,000 unit SUN-SUN-SUN SUBQ 03/08/20 21:00 06/06/20 20:59 03/08/20 21:00 Furosemide (Lasix) 60 mg BID IV 02/25/20 09:00 03/26/20 08:59 03/08/20 17:08 Heparin Sodium (Porcine) (Heparin 5000 units/ml) 5,000 units EVERY 8 HOURS SUBQ 02/25/20 06:00 04/10/20 05:59 03/08/20 21:17 Hydralazine HCl (Apresoline) 25 mg Q6H PRN ORAL SBP above 160 02/26/20 02:00 05/26/20 01:59 03/01/20 01:09 Hydralazine HCl (Apresoline) 100 mg Q8HR ORAL 03/01/20 14:00 05/27/20 13:59 03/08/20 21:14 Lorazepam (Ativan 2mg/ml 1ml) 0.5 mg Q4H PRN IV For Anxiety 03/03/20 19:00 03/10/20 18:59 03/08/20 21:15 Morphine Sulfate (Morphine Sulfate) 1 mg Q3H PRN IVP Severe Pain (Pain Scale 7-10) 03/03/20 12:15 03/10/20 12:14 03/08/20 22:00 Nifedipine (Procardia XL) 60 mg BID ORAL 03/07/20 18:00 04/01/20 08:59 03/07/20 17:20 Nitroglycerin (Nitro-Bid) 1 inch TID@0600,1200,1800 TOPIC 02/26/20 02:00 03/27/20 01:59 03/08/20 06:00 Quetiapine Fumarate (SEROqueL) 75 mg Q12HR ORAL 03/08/20 09:52 04/22/20 09:51 03/08/20 21:14 Neurological/Psychiatric: Denies: no symptoms, anxiety, depressed, emotional problems, headache, numbness, paresthesia, pre-existing deficit, seizure, tingling, tremors, weakness, other Allergies: Coded Allergies: SULFA (SULFONAMIDE ANTIBIOTICS) (Verified Allergy, Unknown, 02/24/20) Objective Data Height (Feet): 5 Height (Inches): 4.00 Weight (Pounds): 160 General Appearance: agitated, combative London Mckeon MD Mar 08, 2020 23:02
--- NOTE | 2020-03-08 23:02 | NUR ---
NURSE NOTES: The patient started yelling and combative with her care during dialysis. She was insulting and yelling continually.Dialysis was stopped with1 liters of fluids taken out.
--- NOTE | 2020-03-08 23:20 | Cardiology Progress Note ---
Subjective DATE OF SERVICE: Mar 08, 2020 No new complaints Awaiting SNF and dialysis unit acceptance. BP parameters remain stable, except for spike this evening above 200 systolic. S/P HD/UF yesterday 2D Echo: EF 30%, severe pulm HTN with PAP 90mmHg, global and regional wall motion abnormalities Objective Last 24 Hour Vital Signs Date Time Temp Pulse Resp B/P (MAP) Pulse Ox O2 Delivery O2 Flow Rate FiO2 03/08/20 21:14 208/96 03/08/20 21:00 Room Air 03/08/20 16:00 98.0 100 20 120/84 (96) 95 03/08/20 12:00 97.7 93 19 138/74 (95) 95 03/08/20 09:00 Room Air 03/08/20 08:00 98.0 98 18 125/73 (90) 96 03/08/20 06:00 120/78 03/08/20 06:00 120/78 03/08/20 04:00 98.8 98 18 115/84 (94) 94 03/08/20 03:15 98 18 120/78 96 03/08/20 02:45 98 18 125/80 94 03/08/20 00:00 98.2 99 18 122/78 (93) 94 ROS: unchanged from my assessment of 02/25/20 HEENT: normal ENT inspection RHYTHM: NSR, ST LUNGS: diminished breath sounds, rales bilaterally - few, other - Right chest wall cath site with no active bleeding CARDIAC: normal rate, regular rhythm, normal S1 and S2, systolic murmur - 2/6 systolic murmur at LLSB, gallop/S4 ABDOMEN: normal bowel sounds, non tender, soft, no organomegaly EXTREMITIES: normal range of motion, non-tender, +1 edema Laboratory Tests Test 03/08/20 06:30 White Blood Count 9.3 K/UL (4.8-10.8) Red Blood Count 2.41 M/UL (4.20-5.40) L Hemoglobin 7.1 G/DL (12.0-16.0) L Hematocrit 22.6 % (37.0-47.0) L Mean Corpuscular Volume 94 FL (80-99) Mean Corpuscular Hemoglobin 29.4 PG (27.0-31.0) Mean Corpuscular Hemoglobin Concent 31.4 G/DL (32.0-36.0) L Red Cell Distribution Width 15.2 % (11.6-14.8) H Platelet Count 158 K/UL (150-450) Mean Platelet Volume 8.0 FL (6.5-10.1) Neutrophils (%) (Auto) % (45.0-75.0) Lymphocytes (%) (Auto) % (20.0-45.0) Monocytes (%) (Auto) % (1.0-10.0) Eosinophils (%) (Auto) % (0.0-3.0) Basophils (%) (Auto) % (0.0-2.0) Differential Total Cells Counted 100 Neutrophils % (Manual) 66 % (45-75) Lymphocytes % (Manual) 17 % (20-45) L Monocytes % (Manual) 10 % (1-10) Eosinophils % (Manual) 5 % (0-3) H Basophils % (Manual) 2 % (0-2) Band Neutrophils 0 % (0-8) Platelet Estimate Adequate Platelet Morphology Normal Hypochromasia 2+ Anisocytosis 1+ Target Cells Occasional Sodium Level 137 MMOL/L (136-145) Potassium Level 4.5 MMOL/L (3.5-5.1) Chloride Level 103 MMOL/L (98-107) Carbon Dioxide Level 27 MMOL/L (21-32) Anion Gap 7 mmol/L (5-15) Blood Urea Nitrogen 73 mg/dL (7-18) H Creatinine 4.8 MG/DL (0.55-1.30) H Estimat Glomerular Filtration Rate 8.9 mL/min (>60) Glucose Level 100 MG/DL (74-106) Calcium Level 8.2 MG/DL (8.5-10.1) L Iron Level 60 ug/dL (50-175) Total Iron Binding Capacity 254 ug/dL (250-450) Percent Iron Saturation 24 % (15-50) Unsaturated Iron Binding 194 ug/dL (112-346) Ferritin 136 NG/ML (8-388) Assessment/Plan Assessment/Plan Metabolic encephalopathy ESRD Acute myocardial ischemia/possible NSTE myocardial infarction Ischemic and cocaine cardiomyopathy Severe pulmonary hypertension Acute on chronic systolic CHF Hypertensive urgency resolved Anemia of CKD Hypomagnesemia HD/UF per renal PRBC tx Anti-plt therapy Maximizing antiHTN and anti-failure regimen; use prn meds for now rare BP spikes. Epo/Fe++; consider PRBC transfusion Magnesium replacement as needed Sourav Montejo MD Mar 08, 2020 23:20
[2020-03-09] VITALS: BP 151/90
[2020-03-09 04:00] VITALS: BP 142/80
--- NOTE | 2020-03-09 05:00 | NUR ---
NURSE NOTES: The patient centraline dressing was changed in the right upper chest PermCath. The was mild secretion coming out of the dressing and the catheter was about 5 cm pulled out by the patient. Will followup with Dr. Munroe as indicated.
[2020-03-09] MEDS: Nitroglycerin 2% oint pkt TOPIC SCH ×3 (06:46→17:17)
[2020-03-09] MEDS: HydrALAZINE 50mg tab ORAL SCH ×3 (06:47→23:00)
[2020-03-09] MEDS: Heparin 5000 units/ml inj SUBQ SCH ×3 (06:54→23:03)
--- NOTE | 2020-03-09 07:20 | NUR ---
NURSE NOTES: Dr. Roberts was called and notified about the patient R. upper chest PermCath possible infection and dislodgment of about 5 cm and was also endorsed to Lisa
--- NOTE | 2020-03-09 07:25 | NUR ---
NURSE HAND-OFF: Important Events on Shift:Dialysis was done yesterday with 1 li\ters of fluids taken out Patient Status: Diet: Pending Orders: Pending Results/Labs: Pending MD notification: Latest Vital Signs: Temperature 97.9 , Pulse 104 , B/P 168 /93 , Respiratory Rate 20 , O2 SAT 97 , Nasal Cannula, O2 Flow Rate 2.0 . Vital Sign Comment: Latest Mcconnell Fall Score: 75 Fall Risk: High Risk Safety Measures: Call light Within Reach, Bed Alarm Zone 1, Side Rails Side Rails x2, Bed position Low and Locked. Fall Precautions: Yellow Socks Door Sign Patient Fall Education Report given to .
[2020-03-09 08:00] VITALS: BP 130/78
--- NOTE | 2020-03-09 08:43 | NUR ---
NURSE NOTES: received report from MARY Thrasher. patient in bed. A&Ox 3, verbally responsive. hard of hearing. no respiratory distress noted on room air. no pain at this time. IV on RFA occluded. removed IV. soft restraint on both wrists for safety. perma cath on right upper chest. dressing intact. no drainage noted \at this time. received report from previous shift suspected infection on cath site.will f./u with MD. bed in the lowest position and locked. call light within reach. will continue to provide plan of care.
[2020-03-09] MEDS: Aspirin Baby 81mg ORAL SCH (09:09)
--- NOTE | 2020-03-09 10:12 | NUR ---
HEAD FIELD HOC[employer] COACH NOTE FOLLOW UP MADE TO MEGHAN [phone]. S/W CHAYO, CONFIRMS [facility]GH[facility] CHAIR TIM[facility] AVAILABLE AT THIS TIME. MEGHAN WILL REFER TO [facility]. CONFIRMS THERE ARE CHAIR TIME AVAILABILITY. WILL CALL BACK WITH CHAIR DAY AND TIME CONFIRMATION.
--- NOTE | 2020-03-09 10:49 | NUR ---
NURSE NOTES: per dialysis nurse, martha, she found some pus drainage on cath site during HD. notified Dr. Munroe and received order of culture fluid. order noted and carried out.
--- NOTE | 2020-03-09 11:00 | NUR ---
NURSE NOTES: Patient was seen by .Notified hgb 7.1 yesterday.\MD will see the hgb result on 03/10/20.
--- NOTE | 2020-03-09 11:36 | General Progress Note ---
Subjective Allergies: Coded Allergies: SULFA (SULFONAMIDE ANTIBIOTICS) (Verified Allergy, Unknown, 02/24/20) Subjective Pending today's labs; intermittent tachy. Patient was reported to have purulent drainage from HD cath site. Has been sent for Culture. However does not appear to be septic Objective Last 24 Hour Vital Signs Date Time Temp Pulse Resp B/P (MAP) Pulse Ox O2 Delivery O2 Flow Rate FiO2 03/09/20 09:09 103 130/78 03/09/20 09:08 130/78 03/09/20 09:00 Room Air 03/09/20 08:00 97.8 103 19 130/78 (95) 94 03/09/20 06:47 168/93 03/09/20 06:46 168/93 03/09/20 04:00 97.9 104 20 142/80 (100) 97 03/09/20 00:00 98.1 102 19 151/90 (110) 96 03/08/20 21:14 208/96 03/08/20 21:00 Room Air 03/08/20 20:00 98.4 105 20 169/93 (118) 94 03/08/20 16:00 98.0 100 20 120/84 (96) 95 03/08/20 12:00 97.7 93 19 138/74 (95) 95 Intake and Output 03/08/20 03/09/20 19:00 07:00 Intake Total 600 ml 210 ml Output Total 1000 ml Balance 600 ml -790 ml Intake Oral 300 ml 210 ml Other 300 ml Hemodialysis UF 1000 ml # Voids 3 3 Height (Feet): 5 Height (Inches): 4.00 Weight (Pounds): 160 General Appearance: alert, other - confused EENT: PERRL/EOMI Cardiovascular: normal rate, regular rhythm Respiratory/Chest: normal breath sounds, no respiratory distress Abdomen: soft Extremities: normal range of motion Neurologic: oriented x 3 Skin: warm/dry Assessment/Plan Assessment/Plan: 74 yo F with PMHX CHF. CKD4, opioid abuser, chronic untraceable pain syndrome, admitted for CHF exacerbation and fluid overload # Acute systolic heart failure exacerbation. # s/p CKD5 # Now ESRD--> R/O Line Infection, Cultures sent 03/09 # Acute metabolic encephalopathy - stable - lasix 60mg BID - fluid restriction - HD with Dr. Munroe, need to coordinate care - Discharge pending dialysis center availability - per case packer and sealer, [facility] requires hepatitis total core antibody test prior to accepting, results finalized. Now awaiting [facility] approval - No family or surrogate decision makers available at this time. Patient lacks capacity. Completely altered. Social work consulted. - At this time patient unable to make their own health care decisions. Procedure or treatment is necessary to alleviate severe pain and/or, if not performed, would lead to serious disability or . - patient unable to maker her own health care decision likely due to uremic encephalopathy I also believe HD is necessary to improved her current condition therefore we will proceed with permcath placement as renal replacement therapy is felt to prevent major disability - IR placed HD catheter. - Renal/heart healthy diet #Acute blood loss anemia 2/2 tunneled cath line removal > no further signs of bleeding - PRBC transfusion 02/26 with appropriate response - Patient still unable to consent and no surrogate decision maker available. Agree to proceed due to emergent nature. #Elevated alk phos #elevated GGT > Suspect could be due to hepatic congestion from heart failure - abdominal ultrasound: gallbladder thickening - > D/w Surgery. No suspicion for cholecystitis - Appreciate gen surgery recommendations: D/w Dr. Lema #Acute systolic heart failure exacerbation #Elevated troponin, suspect due to demand ischemia and ESRD. Appreciate cardiology input #essential hypertension - EF 20-25%. Global hypokinesis D/w Cardiology. Ischemia vs. history of cocaine use - asa 81 - Increased benazepril to 40mg Po daily by Cardiology - HD per nephrology - appreciate cardiology recommendations #Urinary tract infection - blood cultures: NGTD - urine culture: mixed results - s/p Rocephin (02/23 started) # LE edema - US LE to r/o dvt: pending. D/w nursing again who will follow up # Opioid abuse #H/o cocaine abuse - avoid unnecessary narcotic FENPPX DVTPPX: Diet: renal Lines: tunneled line PT/OT: pending Code status: full per policy Dispo: SNF Reason for Continued Hospitalization: ESRD - needs [facility] dialysis center approval - hepatitis total core antibody test pending (test is sent out to outside lab so may take several days) 03/09: Pending todays labs; If WBC elevated consider AB. F/U Cx from HD site Sangeetha Hernandez D.O. Mar 09, 2020 11:36
--- NOTE | 2020-03-09 14:37 | Surgery Progress Note ---
Surgery Progress Note Subjective Additional Comments reported drainage around hd cath site evaluated at bedside and currently clean and dry no signs of active infection discussed with nepro. possible removal as kidney function improves Objective Last 24 Hour Vital Signs Date Time Temp Pulse Resp B/P (MAP) Pulse Ox O2 Delivery O2 Flow Rate FiO2 03/09/20 14:04 130/72 03/09/20 12:21 142/98 03/09/20 09:09 103 130/78 03/09/20 09:08 130/78 03/09/20 09:00 Room Air 03/09/20 08:00 97.8 103 19 130/78 (95) 94 03/09/20 06:47 168/93 03/09/20 06:46 168/93 03/09/20 04:00 97.9 104 20 142/80 (100) 97 03/09/20 00:00 98.1 102 19 151/90 (110) 96 03/08/20 21:14 208/96 03/08/20 21:00 Room Air 03/08/20 20:00 98.4 105 20 169/93 (118) 94 03/08/20 16:00 98.0 100 20 120/84 (96) 95 I&O Intake and Output 03/08/20 03/09/20 19:00 07:00 Intake Total 600 ml 210 ml Output Total 1000 ml Balance 600 ml -790 ml Intake Oral 300 ml 210 ml Other 300 ml Hemodialysis UF 1000 ml # Voids 3 3 Dressing: dry Wound: clean Cardiovascular: RSR Respiratory: clear Abdomen: soft, non-tender, present bowel sounds Extremities: no edema, no tenderness, no cyanosis Plan Problems: (1) Abnormal LFTs Assessment & Plan: Patient identified to have elevated LFTs on admission. Complaints abdominal discomfort. No imaging currently performed. Abdominal ultrasound ordered. Trend labs IV fluids will monitor recommendations with evaluation of medications and serial abdominal exams. Exam is limited due to patient having limited ability to cooperate. Gallbladder demonstrates focal wall thickening and edema, gallbladder wall just over 4 mm thick. There is also small amount of pericholecystic fluid No gallstones. Sonographic Lewis's sign is negative. Common bile duct measures 5 mm in diameter. No intrahepatic biliary ductal dilatation. Liver demonstrates slightly increased echogenicity, no focal abnormality. Portal vein and hepatic veins are patent. Pancreas is unremarkable. Spleen is unremarkable. Left kidney measures 7.7 cm in length. Right kidney measures 8 cm length. Both kidneys demonstrate increased echogenicity There is no hydronephrosis. No focal abnormality . Abdominal aorta is partially obscured by bowel gas, visualized portions are non-aneurysmal . Right pleural effusion incidentally noted Impression: Somewhat limited exam, as described Increased renal echogenicity bilaterally, indicating medical renal disease. Incidental finding of bilateral renal cysts Mildly increased hepatic echogenicity, likely medical renal disease Negative for gallstones. There is focal gallbladder wall thickening and some pericholecystic fluid. This is probably due to edema of systemic causes but the possibility of acalculous acute cholecystitis should also be considered Right pleural effusion Note incompletely visualized distal abdominal aorta (2) Abdominal discomfort Assessment & Plan: No significant bowel distention. Discomfort on palpation asking for pain medications. No nausea vomiting fever chills. Okay for diet as tolerated we will follow with serial exams Thank allowing participation's care (3) Anemia (4) UTI (urinary tract infection) (5) Hypertension (6) ESRF (end stage renal failure) (7) Noncompliance (8) Head injury, acute (9) Cocaine abuse (10) Acute exacerbation of CHF (congestive heart failure) (11) Pain syndrome, chronic (12) Elevated troponin I level Blu Lema Mar 09, 2020 14:37
[2020-03-09 14:42] LABS: HEMATOCRIT 24.7 % (37.0-47.0); HEMOGLOBIN 7.9 G/DL (12.0-16.0); MEAN CORPUSCULAR VOLUME 92 FL (80-99); PLATELET COUNT 126 K/UL (150-450); RED BLOOD COUNT 2.69 M/UL (4.20-5.40); RED CELL DISTRIBUTION WIDTH 15.3 % (11.6-14.8); WHITE BLOOD COUNT 7.7 K/UL (4.8-10.8)
[2020-03-09 14:49] LABS: CALCIUM 8.1 MG/DL (8.5-10.1); POTASSIUM 5.1 MMOL/L (3.5-5.1)
[2020-03-09 15:08] LABS: PHOSPHORUS 4.4 MG/DL (2.5-4.9)
[2020-03-09 16:00] VITALS: BP 137/66
--- NOTE | 2020-03-09 17:55 | Neurology Progress Note ---
Interim History Interim History ROS Limited/Unobtainable: Yes Interim History remains poorly responsive Objective Physical Exam Last Vital Signs Date Time Temp Pulse Resp B/P (MAP) Pulse Ox O2 Delivery O2 Flow Rate FiO2 03/09/20 17:17 100 137/66 03/09/20 16:00 97.7 20 94 03/09/20 09:00 Room Air 03/04/20 06:00 2.0 97 Laboratory Tests Test 03/09/20 14:10 White Blood Count 7.7 K/UL (4.8-10.8) Red Blood Count 2.69 M/UL (4.20-5.40) L Hemoglobin 7.9 G/DL (12.0-16.0) L Hematocrit 24.7 % (37.0-47.0) L Mean Corpuscular Volume 92 FL (80-99) Mean Corpuscular Hemoglobin 29.2 PG (27.0-31.0) Mean Corpuscular Hemoglobin Concent 31.8 G/DL (32.0-36.0) L Red Cell Distribution Width 15.3 % (11.6-14.8) H Platelet Count 126 K/UL (150-450) L Mean Platelet Volume 7.5 FL (6.5-10.1) Neutrophils (%) (Auto) % (45.0-75.0) Lymphocytes (%) (Auto) % (20.0-45.0) Monocytes (%) (Auto) % (1.0-10.0) Eosinophils (%) (Auto) % (0.0-3.0) Basophils (%) (Auto) % (0.0-2.0) Differential Total Cells Counted 100 Neutrophils % (Manual) 68 % (45-75) Lymphocytes % (Manual) 10 % (20-45) L Monocytes % (Manual) 11 % (1-10) H Eosinophils % (Manual) 9 % (0-3) H Basophils % (Manual) 2 % (0-2) Band Neutrophils 0 % (0-8) Platelet Estimate Decreased L Platelet Morphology Normal Polychromasia 1+ Anisocytosis 1+ Sodium Level 140 MMOL/L (136-145) Potassium Level 5.1 MMOL/L (3.5-5.1) Chloride Level 106 MMOL/L (98-107) Carbon Dioxide Level 29 MMOL/L (21-32) Anion Gap 5 mmol/L (5-15) Blood Urea Nitrogen 59 mg/dL (7-18) H Creatinine 4.0 MG/DL (0.55-1.30) H Estimat Glomerular Filtration Rate 11.0 mL/min (>60) Glucose Level 137 MG/DL (74-106) H Calcium Level 8.1 MG/DL (8.5-10.1) L Phosphorus Level 4.4 MG/DL (2.5-4.9) Magnesium Level 1.9 MG/DL (1.8-2.4) Head: normocophalic Neck: no rigidity EENT: benign Neurologic Exam Mental Status: awake, alert Cranial Nerve II: visual juarez Cranial Nerves III, IV, : PERRLA, EOMI Cranial Nerve V: normal facial sensations Objective ao x 2 flapping noted tangential non focal Impression/Recommendations Problems: (1) Anemia (2) UTI (urinary tract infection) (3) Hypertension (4) ESRF (end stage renal failure) (5) Noncompliance (6) Head injury, acute (7) Cocaine abuse (8) Acute exacerbation of CHF (congestive heart failure) (9) Pain syndrome, chronic (10) Elevated troponin I level (11) Abdominal discomfort (12) Abnormal LFTs Diagnostic Impression acute encephalopathy, likely uremic agitation tele seroquel 25 mg bid standing HD per nephro PT OT as able no opioids Hay Johnson MD Mar 09, 2020 17:55
--- NOTE | 2020-03-09 19:18 | NUR ---
NURSE HAND-OFF: Important Events on Shift:renewed restraint, culture of HD cath site suspected infection, HD tomorrow Diet: regualr Pending Orders: n/a Pending Results/Labs:culture cath site Pending MD notification:n/a Latest Vital Signs: Temperature 97.7 , Pulse 100 , B/P 137 /66 , Respiratory Rate 20 , O2 SAT 94 , Nasal Cannula, O2 Flow Rate 2.0 . Vital Sign Comment:stable Latest Mcconnell Fall Score: 75 Fall Risk: High Risk Safety Measures: Call light Within Reach, Bed Alarm Zone 1, Side Rails Side Rails x2, Bed position Low and Locked. Fall Precautions: Yellow Socks Door Sign Patient Fall Education Report given MARY Paul
--- NOTE | 2020-03-09 19:28 | NUR ---
NURSE NOTES: The patient is alert and oriented x3 also noted with agitations, restlessness and forgetfulness .The patient is presently on RA. She is very anxious, trying to take out her IV line and remained on a Bilateral soft Wrist restraint well tolerated. The patient has a R. upper chest PermCath noted with clean and intact dressing that was changed 03/08/2020. IV line is on the left wrist 22g that is patent and asymptomatic.Dialysis was done yesterday with 1 liters of fluids taken out. The bed in low level, call light within easy reach, siderails up x2. Will continue to monitor as indicated
[2020-03-09 20:00] VITALS: BP 138/80
[2020-03-09] MEDS: LORazepam Inj 2mg/ml 1ml IV PRN (20:03)
[2020-03-09] MEDS: Morphine Sulfate 2mg/ml Inj(IV/IM USE ONLY) IVP PRN (20:05)
--- NOTE | 2020-03-09 23:19 | Cardiology Progress Note ---
Subjective DATE OF SERVICE: Mar 09, 2020 No new complaints; remains minimally interactive. Awaiting SNF and dialysis unit acceptance. BP parameters remain stable over past 24 hrs. Continues with HD/UF per renal. 2D Echo: EF 30%, severe pulm HTN with PAP 90mmHg, global and regional wall motion abnormalities Objective Last 24 Hour Vital Signs Date Time Temp Pulse Resp B/P (MAP) Pulse Ox O2 Delivery O2 Flow Rate FiO2 03/09/20 23:00 155/87 03/09/20 21:00 Room Air 03/09/20 20:00 97.8 99 21 138/80 (99) 96 03/09/20 17:17 100 137/66 03/09/20 17:17 137/66 03/09/20 16:00 97.7 100 20 137/66 (89) 94 03/09/20 14:04 130/72 03/09/20 12:21 142/98 03/09/20 09:09 103 130/78 03/09/20 09:08 130/78 03/09/20 09:00 Room Air 03/09/20 08:00 97.8 103 19 130/78 (95) 94 03/09/20 06:47 168/93 03/09/20 06:46 168/93 03/09/20 04:00 97.9 104 20 142/80 (100) 97 03/09/20 00:00 98.1 102 19 151/90 (110) 96 ROS: unchanged from my assessment of 02/25/20 HEENT: normal ENT inspection RHYTHM: NSR, ST LUNGS: diminished breath sounds, rales bilaterally - few, other - Right chest wall cath site with no active bleeding CARDIAC: normal rate, regular rhythm, normal S1 and S2, systolic murmur - 2/6 systolic murmur at LLSB, gallop/S4 ABDOMEN: normal bowel sounds, non tender, soft, no organomegaly EXTREMITIES: normal range of motion, non-tender, +1 edema Laboratory Tests Test 03/09/20 14:10 White Blood Count 7.7 K/UL (4.8-10.8) Red Blood Count 2.69 M/UL (4.20-5.40) L Hemoglobin 7.9 G/DL (12.0-16.0) L Hematocrit 24.7 % (37.0-47.0) L Mean Corpuscular Volume 92 FL (80-99) Mean Corpuscular Hemoglobin 29.2 PG (27.0-31.0) Mean Corpuscular Hemoglobin Concent 31.8 G/DL (32.0-36.0) L Red Cell Distribution Width 15.3 % (11.6-14.8) H Platelet Count 126 K/UL (150-450) L Mean Platelet Volume 7.5 FL (6.5-10.1) Neutrophils (%) (Auto) % (45.0-75.0) Lymphocytes (%) (Auto) % (20.0-45.0) Monocytes (%) (Auto) % (1.0-10.0) Eosinophils (%) (Auto) % (0.0-3.0) Basophils (%) (Auto) % (0.0-2.0) Differential Total Cells Counted 100 Neutrophils % (Manual) 68 % (45-75) Lymphocytes % (Manual) 10 % (20-45) L Monocytes % (Manual) 11 % (1-10) H Eosinophils % (Manual) 9 % (0-3) H Basophils % (Manual) 2 % (0-2) Band Neutrophils 0 % (0-8) Platelet Estimate Decreased L Platelet Morphology Normal Polychromasia 1+ Anisocytosis 1+ Sodium Level 140 MMOL/L (136-145) Potassium Level 5.1 MMOL/L (3.5-5.1) Chloride Level 106 MMOL/L (98-107) Carbon Dioxide Level 29 MMOL/L (21-32) Anion Gap 5 mmol/L (5-15) Blood Urea Nitrogen 59 mg/dL (7-18) H Creatinine 4.0 MG/DL (0.55-1.30) H Estimat Glomerular Filtration Rate 11.0 mL/min (>60) Glucose Level 137 MG/DL (74-106) H Calcium Level 8.1 MG/DL (8.5-10.1) L Phosphorus Level 4.4 MG/DL (2.5-4.9) Magnesium Level 1.9 MG/DL (1.8-2.4) Assessment/Plan Assessment/Plan Metabolic encephalopathy ESRD Acute myocardial ischemia/possible NSTE myocardial infarction Ischemic and cocaine cardiomyopathy Severe pulmonary hypertension Acute on chronic systolic CHF Hypertensive urgency resolved Anemia of CKD Hypomagnesemia HD/UF per renal PRBC tx Anti-plt therapy Maximizing antiHTN and anti-failure regimen; use prn meds for now rare BP spikes. Epo/Fe++; consider PRBC transfusion Magnesium replacement as needed Sourav Montejo MD Mar 09, 2020 23:19
[2020-03-10] VITALS: BP 146/75
[2020-03-10 04:00] VITALS: BP_SYST 138; BP_SYST 155; BP_DIAS 71; BP_DIAS 87
[2020-03-10] MEDS: Morphine Sulfate 2mg/ml Inj(IV/IM USE ONLY) IVP PRN ×5 (04:01→20:39)
--- NOTE | 2020-03-10 04:08 | Cardiology Progress Note ---
Subjective DATE OF SERVICE: Mar 10, 2020 No new complaints; remains minimally interactive. Awaiting SNF and dialysis unit acceptance. BP parameters remain stable over past 24 hrs. Continues with HD/UF per renal. 2D Echo: EF 30%, severe pulm HTN with PAP 90mmHg, global and regional wall motion abnormalities Objective Last 24 Hour Vital Signs Date Time Temp Pulse Resp B/P (MAP) Pulse Ox O2 Delivery O2 Flow Rate FiO2 03/10/20 00:00 98.1 97 19 146/75 (98) 95 03/09/20 23:00 155/87 03/09/20 21:00 Room Air 03/09/20 20:00 97.8 99 21 138/80 (99) 96 03/09/20 17:17 100 137/66 03/09/20 17:17 137/66 03/09/20 16:00 97.7 100 20 137/66 (89) 94 03/09/20 14:04 130/72 03/09/20 12:21 142/98 03/09/20 09:09 103 130/78 03/09/20 09:08 130/78 03/09/20 09:00 Room Air 03/09/20 08:00 97.8 103 19 130/78 (95) 94 03/09/20 06:47 168/93 03/09/20 06:46 168/93 ROS: unchanged from my assessment of 02/25/20 HEENT: normal ENT inspection RHYTHM: NSR, ST LUNGS: diminished breath sounds, rales bilaterally - few, other - Right chest wall cath site with no active bleeding CARDIAC: normal rate, regular rhythm, normal S1 and S2, systolic murmur - 2/6 systolic murmur at LLSB, gallop/S4 ABDOMEN: normal bowel sounds, non tender, soft, no organomegaly EXTREMITIES: normal range of motion, non-tender, +1 edema Laboratory Tests Test 03/09/20 14:10 White Blood Count 7.7 K/UL (4.8-10.8) Red Blood Count 2.69 M/UL (4.20-5.40) L Hemoglobin 7.9 G/DL (12.0-16.0) L Hematocrit 24.7 % (37.0-47.0) L Mean Corpuscular Volume 92 FL (80-99) Mean Corpuscular Hemoglobin 29.2 PG (27.0-31.0) Mean Corpuscular Hemoglobin Concent 31.8 G/DL (32.0-36.0) L Red Cell Distribution Width 15.3 % (11.6-14.8) H Platelet Count 126 K/UL (150-450) L Mean Platelet Volume 7.5 FL (6.5-10.1) Neutrophils (%) (Auto) % (45.0-75.0) Lymphocytes (%) (Auto) % (20.0-45.0) Monocytes (%) (Auto) % (1.0-10.0) Eosinophils (%) (Auto) % (0.0-3.0) Basophils (%) (Auto) % (0.0-2.0) Differential Total Cells Counted 100 Neutrophils % (Manual) 68 % (45-75) Lymphocytes % (Manual) 10 % (20-45) L Monocytes % (Manual) 11 % (1-10) H Eosinophils % (Manual) 9 % (0-3) H Basophils % (Manual) 2 % (0-2) Band Neutrophils 0 % (0-8) Platelet Estimate Decreased L Platelet Morphology Normal Polychromasia 1+ Anisocytosis 1+ Sodium Level 140 MMOL/L (136-145) Potassium Level 5.1 MMOL/L (3.5-5.1) Chloride Level 106 MMOL/L (98-107) Carbon Dioxide Level 29 MMOL/L (21-32) Anion Gap 5 mmol/L (5-15) Blood Urea Nitrogen 59 mg/dL (7-18) H Creatinine 4.0 MG/DL (0.55-1.30) H Estimat Glomerular Filtration Rate 11.0 mL/min (>60) Glucose Level 137 MG/DL (74-106) H Calcium Level 8.1 MG/DL (8.5-10.1) L Phosphorus Level 4.4 MG/DL (2.5-4.9) Magnesium Level 1.9 MG/DL (1.8-2.4) Assessment/Plan Assessment/Plan Metabolic encephalopathy ESRD Acute myocardial ischemia/possible NSTE myocardial infarction Ischemic and cocaine cardiomyopathy Severe pulmonary hypertension Acute on chronic systolic CHF Hypertensive urgency resolved Anemia of CKD Hypomagnesemia HD/UF per renal PRBC tx Anti-plt therapy Maximizing antiHTN and anti-failure regimen; use prn meds for now rare BP spikes. Epo/Fe++; consider PRBC transfusion Magnesium replacement as needed Sourav Montejo MD Mar 10, 2020 04:08
--- NOTE | 2020-03-10 04:20 | NUR ---
NURSE NOTES: The patient was given Ativan due to agitations , anxiety and anxiousness.She also received pain medication as indicated.will continue to monitor
[2020-03-10] MEDS: Nitroglycerin 2% oint pkt TOPIC SCH ×4 (06:12→17:09)
[2020-03-10] MEDS: HydrALAZINE 50mg tab ORAL SCH ×3 (06:12→20:40)
[2020-03-10] MEDS: Heparin 5000 units/ml inj SUBQ SCH ×3 (06:18→20:41)
--- NOTE | 2020-03-10 07:07 | NUR ---
NURSE HAND-OFF: Important Events on Shift:Agitations and anxiety noted Patient Status: Diet: Pending Orders: Pending Results/Labs: Pending MD notification: Latest Vital Signs: Temperature 97.4 , Pulse 96 , B/P 151 /89 , Respiratory Rate 20 , O2 SAT 96 , Nasal Cannula, O2 Flow Rate 2.0 . Vital Sign Comment: Latest Mcconnell Fall Score: 75 Fall Risk: High Risk Safety Measures: Call light Within Reach, Bed Alarm Zone 1, Side Rails Side Rails x2, Bed position Low and Locked. Fall Precautions: Yellow Socks Door Sign Patient Fall Education Report given to .
--- NOTE | 2020-03-10 07:30 | NUR ---
NURSE NOTES: received patient in bed. a/a/Ox4 verbally responsive. [place]. tends to screams and yell. patient use foul words. no respiratory distress noted on room air. PIV on right forearm. patent and intact. permacath on right upper arm, dressing intact. no bleeding noted. bilateral soft wrist restraints for safety, pulling out devices. skin intact. pulse present. no swelling. bed in the lowest position and locked. call light within reach. alarm on. will continue to plan of care.
[2020-03-10 08:00] VITALS: BP 137/85
[2020-03-10] MEDS: Aspirin Baby 81mg ORAL SCH (09:00)
--- NOTE | 2020-03-10 09:00 | NUR ---
NURSE NOTES: PATIENT WAS LOOKING FOR HER CP. ON PERSONAL BELONGING LIST ANDROID WAS ON THE LIST.UNABLE TO FIND ALTHOUGH THE JEWEL SORTER IS ATTACHED TO THE OUTLET. WILL CONT TO MONITOR.
[2020-03-10 09:20] LABS: HEMATOCRIT 24.4 % (37.0-47.0); HEMOGLOBIN 7.8 G/DL (12.0-16.0); MEAN CORPUSCULAR VOLUME 90 FL (80-99); PLATELET COUNT 157 K/UL (150-450); RED CELL DISTRIBUTION WIDTH 15.3 % (11.6-14.8); WHITE BLOOD COUNT 7.7 K/UL (4.8-10.8)
--- NOTE | 2020-03-10 09:39 | NUR ---
*-*DISCHARGE PLANNING*-* PER NET WASHER MARIOLA STATED MEGHAN [facility] ARE FINALIZING ACCEPTANCE FOR CHAIR TIME AVAILABILITY. BATHHOUSE KEEPER WILL CONTINUE TO FOLLOW.
[2020-03-10 09:49] LABS: ALBUMIN 2.5 G/DL (3.4-5.0); ALBUMIN/GLOBULIN RATIO 0.7 (1.0-2.7); BILIRUBIN,TOTAL 0.3 MG/DL (0.2-1.0); CALCIUM 8.6 MG/DL (8.5-10.1); CREATININE 4.8 MG/DL (0.55-1.30)
--- NOTE | 2020-03-10 10:20 | NUR ---
ARCHIVAL RECORDS CLERK NOTE S/W YADI AT [facility] IN RE TO CHAIR DAYS/TIME. PER YADI, FINAL APPROVAL AT [facility] PENDING. YADI WILL FOLLOW UP WITH HD CENTER AND CALL BACK WITH UPDATE.
--- NOTE | 2020-03-10 10:22 | Nephrology Progress Note ---
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 #troponemia #CHF #h/o polysubtance abuse, cocaine abuser #HTN #anemia - next HD today - monitor drainage around the catheter site - monitor hemoglobin level - pending outpatient HD placement - cardiology eval - 2D Echo: EF30%, severe pulm HTN with PAP 90mmHg, global and regional wall motion abnormalities - switch to nifedipine to 60mg BID - add benazopril 20mg daily - increase hydralazine 100 TID -continue epo - monitor electrolytes time spent 65 min Subjective ROS Limited/Unobtainable: Yes Subjective reported drainage around hd cath site culture sent continue to monitor - might need to exchange hemoglobin stable agitated at times 2D Echo: EF30%, severe pulm HTN with PAP 90mmHg, global and regional wall motion abnormalities remains confused Objective Objective Last 24 Hour Vital Signs Date Time Temp Pulse Resp B/P (MAP) Pulse Ox O2 Delivery O2 Flow Rate FiO2 03/10/20 09:41 97.4 03/10/20 09:00 96 137/85 03/10/20 09:00 137/85 03/10/20 08:00 97.3 96 18 137/85 (102) 96 03/10/20 06:12 151/89 03/10/20 06:12 151/89 03/10/20 04:00 97.4 96 20 155/87 (109) 96 03/10/20 00:00 98.1 97 19 146/75 (98) 95 03/09/20 23:00 155/87 03/09/20 21:00 Room Air 03/09/20 20:00 97.8 99 21 138/80 (99) 96 03/09/20 17:17 100 137/66 03/09/20 17:17 137/66 03/09/20 16:00 97.7 100 20 137/66 (89) 94 03/09/20 14:04 130/72 03/09/20 12:21 142/98 Intake and Output 03/09/20 03/10/20 19:00 07:00 Intake Total 740 ml 480 ml Balance 740 ml 480 ml Intake Oral 740 ml 480 ml # Voids 2 3 Laboratory Tests 03/09/20 14:10: White Blood Count 7.7, Red Blood Count 2.69L, Hemoglobin 7.9L, Hematocrit 24.7L, Mean Corpuscular Volume 92, Mean Corpuscular Hemoglobin 29.2, Mean Corpuscular Hemoglobin Concent 31.8L, Red Cell Distribution Width 15.3H, Platelet Count 126L , Mean Platelet Volume 7.5, Neutrophils (%) (Auto) , Lymphocytes (%) (Auto) , Monocytes (%) (Auto) , Eosinophils (%) (Auto) , Basophils (%) (Auto) , Differential Total Cells Counted 100, Neutrophils % (Manual) 68, Lymphocytes % (Manual) 10L, Monocytes % (Manual) 11H, Eosinophils % (Manual) 9H, Basophils % (Manual) 2, Band Neutrophils 0, Platelet Estimate DecreasedL, Platelet Morp hology Normal, Polychromasia 1+, Anisocytosis 1+, Sodium Level 140, Potassium Level 5.1, Chloride Level 106, Carbon Dioxide Level 29, Anion Gap 5, Blood Urea Nitrogen 59H, Creatinine 4.0H, Estimat Glomerular Filtration Rate 11.0, Glucose Level 137H, Calcium Level 8.1L, Phosphorus Level 4.4, Magnesium Level 1.9 03/10/20 08:30: White Blood Count 7.7, Red Blood Count 2.70L, Hemoglobin 7.8L, Hematocrit 24.4L, Mean Corpuscular Volume 90, Mean Corpuscular Hemoglobin 28.9, Mean Corpuscular Hemoglobin Concent 32.0, Red Cell Distribution Width 15.3H, Platelet Count 157, Mean Platelet Volume 7.9, Neutrophils (%) (Auto) , Lymphocytes (%) (Auto) , Monocytes (%) (Auto) , Eosinophils (%) (Auto) , Basophils (%) (Auto) , Differential Total Cells Counted 100, Neutrophils % (Manual) 69, Lymphocytes % (Manual) 17L, Monocytes % (Manual) 8, Eosinophils % (Manual) 5H, Basophils % (Manual) 1, Band Neutrophils 0, Platelet Estimate Adequate, Platelet Morphology Normal, Anisocytosis 1+, Sodium Level 141, Potassium Level 5.0, Chloride Level 104, Carbon Dioxide Level 30, Anion Gap 8, Blood Urea Nitrogen 71H, Creatinine 4.8H, Estimat Glomerular Filtration Rate 8.9, Glucose Level 108H, Calcium Level 8.6, Phosphorus Level 5.0H, Magnesium Level 2.1, Hypochromasia 1+, Total Bilirubin 0.3, Aspartate Amino Transf (AST/SGOT) 23, Alanine Aminotransferase (ALT/SGPT) 15, Alkaline Phosphatase 111, Total Protein 6.2L, Albumin 2.5L, Globulin 3.7, Albumin/Globulin Ratio 0.7L Height (Feet): 5 Height (Inches): 4.00 Weight (Pounds): 160 Ace Munroe M.D. Mar 10, 2020 10:22
--- NOTE | 2020-03-10 11:00 | NUR ---
NURSE NOTES: dr hugo aware of the H/H today's lab. no new order obtained. will cont to monitor.
[2020-03-10 12:00] VITALS: BP 150/82
--- NOTE | 2020-03-10 12:15 | NUR ---
NURSE NOTES: CALLED [facility] AND SPOKE WITH MAYO TO F/U HD TODAY. AWAITING FOR A CONFIRMATION FROM HD NURSE. WILL CONT TO MONITOR.
--- NOTE | 2020-03-10 14:29 | General Progress Note ---
Subjective Date patient seen: Mar 10, 2020 Allergies: Coded Allergies: SULFA (SULFONAMIDE ANTIBIOTICS) (Verified Allergy, Unknown, 02/24/20) Subjective Spoke to nephro; low suspicion for any type of septic picture or line infection. Main issue is HD outpatient arrangements and placement. Objective Last 24 Hour Vital Signs Date Time Temp Pulse Resp B/P (MAP) Pulse Ox O2 Delivery O2 Flow Rate FiO2 03/10/20 13:45 150/82 03/10/20 12:58 97.5 03/10/20 12:00 97.5 98 19 150/82 (104) 95 03/10/20 09:41 97.4 03/10/20 09:00 96 137/85 03/10/20 09:00 137/85 03/10/20 09:00 Room Air 03/10/20 08:00 97.3 96 18 137/85 (102) 96 03/10/20 06:12 151/89 03/10/20 06:12 151/89 03/10/20 04:00 97.4 96 20 155/87 (109) 96 03/10/20 00:00 98.1 97 19 146/75 (98) 95 03/09/20 23:00 155/87 03/09/20 21:00 Room Air 03/09/20 20:00 97.8 99 21 138/80 (99) 96 03/09/20 17:17 100 137/66 03/09/20 17:17 137/66 03/09/20 16:00 97.7 100 20 137/66 (89) 94 Intake and Output 03/09/20 03/10/20 19:00 07:00 Intake Total 740 ml 480 ml Balance 740 ml 480 ml Intake Oral 740 ml 480 ml # Voids 2 3 Laboratory Tests 03/10/20 08:30: White Blood Count 7.7, Red Blood Count 2.70L, Hemoglobin 7.8L, Hematocrit 24.4L, Mean Corpuscular Volume 90, Mean Corpuscular Hemoglobin 28.9, Mean Corpuscular Hemoglobin Concent 32.0, Red Cell Distribution Width 15.3H, Platelet Count 157, Mean Platelet Volume 7.9, Neutrophils (%) (Auto) , Lymphocytes (%) (Auto) , Monocytes (%) (Auto) , Eosinophils (%) (Auto) , Basophils (%) (Auto) , Differential Total Cells Counted 100, Neutrophils % (Manual) 69, Lymphocytes % (Manual) 17L, Monocytes % (Manual) 8, Eosinophils % (Manual) 5H, Basophils % (Manual) 1, Band Neutrophils 0, Platelet Estimate Adequate, Platelet Morphology Normal, Hypochromasia 1+, Anisocytosis 1+, Sodium Level 141, Potassium Level 5.0, Chloride Level 104, Carbon Dioxide Level 30, Anion Gap 8, Blood Urea Nitrogen 71H, Creatinine 4.8H, Estimat Glomerular Filtration Rate 8.9, Glucose Level 108H, Calcium Level 8.6, Phosphorus Level 5.0H, Magnesium Level 2.1, Total Bilirubin 0.3, Aspartate Amino Transf (AST/SGOT) 23, Alanine Aminotransferase (ALT/SGPT) 15, Alkaline Phosphatase 111, Total Protein 6.2L, Albumin 2.5L, Globulin 3.7, Albumin/Globulin Ratio 0.7L Height (Feet): 5 Height (Inches): 4.00 Weight (Pounds): 160 General Appearance: other - periods of confusion EENT: PERRL/EOMI Cardiovascular: normal rate Respiratory/Chest: normal breath sounds, no respiratory distress Abdomen: soft Extremities: normal range of motion Assessment/Plan Assessment/Plan: 74 yo F with PMHX CHF. CKD4, opioid abuser, chronic untraceable pain syndrome, admitted for CHF exacerbation and fluid overload, now on HD. #Hx of CKD V now ESRD s/p HD access #Rule out Line infection --> highly doubt, but cultures pending from HD line #Acute metabolic encephalopathy - Waxes and Wanes Appreciate Nephro, Currently Euvolemic Main issue is placement at this time, working on outpatient HD arrangements to accept patient #Acute on Chronic Systolic CHF Exacerbation-Resolved EF 20-25%. Global hypokinesis D/w Cardiology. Ischemia vs. history of cocaine use Asa 81 Benazepril PO #Acute blood loss anemia 2/2 tunneled cath line removal-Resolved S/P PRBC transfusion 02/26 with appropriate response #R/O Cholecystitis--> ruled out Abdominal ultrasound: gallbladder thickening - > D/w Surgery. No suspicion for cholecystitis #Urinary tract infection S/P Rocephin Tx #Opioid abuse-Stable #H/o cocaine abuse-Stable DVT/GI ppx Dispo: Main issue is HD arrangements. F/u with CM and nephro Sangeetha Hernandez D.O. Mar 10, 2020 14:29
--- NOTE | 2020-03-10 15:24 | NUR ---
CASE MANAGEMENT:REVIEW SI;ENCEPHALOPATHY. ANEMIA. ESRD. ALOC. 97.5 98 19 150/82 95% ON RA H/H 7.4/24.4 BUN 71 CR 4.8 PHOS 5.0 ALB 2.5 IS;MORPHINE SULFATE IV Q3 PRN EPOETIN [place] SQ M/W/F SEROQUEL PO Q12 PROCARDIA PO BID HYDRALAZINE PO Q8 NITRO-BID TOP ASA PO QD HEPARIN SQ Q8 MED SURG STATUS DCP;FROM HOME DC PLANNING FOR SNF OUTPATIENT HD PENDING WITH MEGHAN
--- NOTE | 2020-03-10 15:35 | NUR ---
VAMP CUT OUT WORKER NOTE [phone] EXT [id number]. S/W YADI WHO INFORMED THIS CM THAT [facility] DENIED PATIENT. PER YADI, SHE WILL CONTACT [facility] IN RE TO CHAIR AVAILABILITY AND CALL FOLLOW UP WITH THIS CM.
[2020-03-10 16:00] VITALS: BP 165/93
--- NOTE | 2020-03-10 17:46 | Surgery Progress Note ---
Surgery Progress Note Subjective Additional Comments ill appearing no acute events labs noted micro reviewed no drainage from permacath clean dry dressings okay no infection noted Objective Last 24 Hour Vital Signs Date Time Temp Pulse Resp B/P (MAP) Pulse Ox O2 Delivery O2 Flow Rate FiO2 03/10/20 17:09 106 165/93 03/10/20 17:09 165/93 03/10/20 16:00 97.2 106 19 165/93 (117) 94 03/10/20 13:45 150/82 03/10/20 12:58 97.5 03/10/20 12:00 97.5 98 19 150/82 (104) 95 03/10/20 09:41 97.4 03/10/20 09:00 96 137/85 03/10/20 09:00 137/85 03/10/20 09:00 Room Air 03/10/20 08:00 97.3 96 18 137/85 (102) 96 03/10/20 06:12 151/89 03/10/20 06:12 151/89 03/10/20 04:00 97.4 96 20 155/87 (109) 96 03/10/20 00:00 98.1 97 19 146/75 (98) 95 03/09/20 23:00 155/87 03/09/20 21:00 Room Air 03/09/20 20:00 97.8 99 21 138/80 (99) 96 I&O Intake and Output 03/09/20 03/10/20 19:00 07:00 Intake Total 740 ml 480 ml Balance 740 ml 480 ml Intake Oral 740 ml 480 ml # Voids 2 3 Dressing: dry Wound: clean Cardiovascular: RSR Respiratory: clear Abdomen: soft, non-tender, present bowel sounds, non-distended Extremities: no edema, no tenderness, no cyanosis Laboratory Tests Test 03/10/20 08:30 White Blood Count 7.7 K/UL (4.8-10.8) Red Blood Count 2.70 M/UL (4.20-5.40) L Hemoglobin 7.8 G/DL (12.0-16.0) L Hematocrit 24.4 % (37.0-47.0) L Mean Corpuscular Volume 90 FL (80-99) Mean Corpuscular Hemoglobin 28.9 PG (27.0-31.0) Mean Corpuscular Hemoglobin Concent 32.0 G/DL (32.0-36.0) Red Cell Distribution Width 15.3 % (11.6-14.8) H Platelet Count 157 K/UL (150-450) Mean Platelet Volume 7.9 FL (6.5-10.1) Neutrophils (%) (Auto) % (45.0-75.0) Lymphocytes (%) (Auto) % (20.0-45.0) Monocytes (%) (Auto) % (1.0-10.0) Eosinophils (%) (Auto) % (0.0-3.0) Basophils (%) (Auto) % (0.0-2.0) Differential Total Cells Counted 100 Neutrophils % (Manual) 69 % (45-75) Lymphocytes % (Manual) 17 % (20-45) L Monocytes % (Manual) 8 % (1-10) Eosinophils % (Manual) 5 % (0-3) H Basophils % (Manual) 1 % (0-2) Band Neutrophils 0 % (0-8) Platelet Estimate Adequate Platelet Morphology Normal Hypochromasia 1+ Anisocytosis 1+ Sodium Level 141 MMOL/L (136-145) Potassium Level 5.0 MMOL/L (3.5-5.1) Chloride Level 104 MMOL/L (98-107) Carbon Dioxide Level 30 MMOL/L (21-32) Anion Gap 8 mmol/L (5-15) Blood Urea Nitrogen 71 mg/dL (7-18) H Creatinine 4.8 MG/DL (0.55-1.30) H Estimat Glomerular Filtration Rate 8.9 mL/min (>60) Glucose Level 108 MG/DL (74-106) H Calcium Level 8.6 MG/DL (8.5-10.1) Phosphorus Level 5.0 MG/DL (2.5-4.9) H Magnesium Level 2.1 MG/DL (1.8-2.4) Total Bilirubin 0.3 MG/DL (0.2-1.0) Aspartate Amino Transf (AST/SGOT) 23 U/L (15-37) Alanine Aminotransferase (ALT/SGPT) 15 U/L (12-78) Alkaline Phosphatase 111 U/L (46-116) Total Protein 6.2 G/DL (6.4-8.2) L Albumin 2.5 G/DL (3.4-5.0) L Globulin 3.7 g/dL Albumin/Globulin Ratio 0.7 (1.0-2.7) L Plan Problems: (1) Abnormal LFTs Assessment & Plan: Patient identified to have elevated LFTs on admission. Complaints abdominal discomfort. No imaging currently performed. Abdominal ultrasound ordered. Trend labs IV fluids will monitor recommendations with evaluation of medications and serial abdominal exams. Exam is limited due to patient having limited ability to cooperate. Gallbladder demonstrates focal wall thickening and edema, gallbladder wall just over 4 mm thick. There is also small amount of pericholecystic fluid No gallstones. Sonographic Lewis's sign is negative. Common bile duct measures 5 mm in diameter. No intrahepatic biliary ductal dilatation. Liver demonstrates slightly increased echogenicity, no focal abnormality. Portal vein and hepatic veins are patent. Pancreas is unremarkable. Spleen is unremarkable. Left kidney measures 7.7 cm in length. Right kidney measures 8 cm length. Both kidneys demonstrate increased echogenicity There is no hydronephrosis. No focal abnormality . Abdominal aorta is partially obscured by bowel gas, visualized portions are non-aneurysmal . Right pleural effusion incidentally noted Impression: Somewhat limited exam, as described Increased renal echogenicity bilaterally, indicating medical renal disease. Incidental finding of bilateral renal cysts Mildly increased hepatic echogenicity, likely medical renal disease Negative for gallstones. There is focal gallbladder wall thickening and some pericholecystic fluid. This is probably due to edema of systemic causes but the possibility of acalculous acute cholecystitis should also be considered Right pleural effusion Note incompletely visualized distal abdominal aorta (2) Abdominal discomfort Assessment & Plan: No significant bowel distention. Discomfort on palpation asking for pain medications. No nausea vomiting fever chills. Okay for diet as tolerated we will follow with serial exams Thank allowing participation's care (3) Anemia (4) UTI (urinary tract infection) (5) Hypertension (6) ESRF (end stage renal failure) (7) Noncompliance (8) Head injury, acute (9) Cocaine abuse (10) Acute exacerbation of CHF (congestive heart failure) (11) Pain syndrome, chronic (12) Elevated troponin I level Blu Lema Mar 10, 2020 17:46
--- NOTE | 2020-03-10 19:16 | NUR ---
NURSE HAND-OFF: Important Events on Shift:[awaiting for HD; pain managed; kept clean and comfortable] Patient Status: [stable] Diet: [reg] Pending Orders: [HD; labs] Pending Results/Labs:[in am] Pending MD notification:[] Latest Vital Signs: Temperature 97.5 , Pulse 106 , B/P 165 /93 , Respiratory Rate 19 , O2 SAT 94 , Nasal Cannula, O2 Flow Rate 2.0 . Vital Sign Comment: [] Latest Mcconnell Fall Score: 75 Fall Risk: High Risk Safety Measures: Call light Within Reach, Bed Alarm Zone 1, Side Rails Side Rails x3, Bed position Low and Locked. Fall Precautions: Yellow Socks Door Sign Patient Fall Education Report given to [thui].
[2020-03-10 20:00] VITALS: BP 152/97
--- NOTE | 2020-03-10 22:13 | Neurology Progress Note ---
Interim History Interim History ROS Limited/Unobtainable: Yes Interim History remains confused Objective Physical Exam Last Vital Signs Date Time Temp Pulse Resp B/P (MAP) Pulse Ox O2 Delivery O2 Flow Rate FiO2 03/10/20 21:00 Room Air 92 03/10/20 17:09 106 165/93 03/10/20 17:01 97.5 03/10/20 16:00 19 94 03/04/20 06:00 2.0 Laboratory Tests Test 03/10/20 08:30 White Blood Count 7.7 K/UL (4.8-10.8) Red Blood Count 2.70 M/UL (4.20-5.40) L Hemoglobin 7.8 G/DL (12.0-16.0) L Hematocrit 24.4 % (37.0-47.0) L Mean Corpuscular Volume 90 FL (80-99) Mean Corpuscular Hemoglobin 28.9 PG (27.0-31.0) Mean Corpuscular Hemoglobin Concent 32.0 G/DL (32.0-36.0) Red Cell Distribution Width 15.3 % (11.6-14.8) H Platelet Count 157 K/UL (150-450) Mean Platelet Volume 7.9 FL (6.5-10.1) Neutrophils (%) (Auto) % (45.0-75.0) Lymphocytes (%) (Auto) % (20.0-45.0) Monocytes (%) (Auto) % (1.0-10.0) Eosinophils (%) (Auto) % (0.0-3.0) Basophils (%) (Auto) % (0.0-2.0) Differential Total Cells Counted 100 Neutrophils % (Manual) 69 % (45-75) Lymphocytes % (Manual) 17 % (20-45) L Monocytes % (Manual) 8 % (1-10) Eosinophils % (Manual) 5 % (0-3) H Basophils % (Manual) 1 % (0-2) Band Neutrophils 0 % (0-8) Platelet Estimate Adequate Platelet Morphology Normal Hypochromasia 1+ Anisocytosis 1+ Sodium Level 141 MMOL/L (136-145) Potassium Level 5.0 MMOL/L (3.5-5.1) Chloride Level 104 MMOL/L (98-107) Carbon Dioxide Level 30 MMOL/L (21-32) Anion Gap 8 mmol/L (5-15) Blood Urea Nitrogen 71 mg/dL (7-18) H Creatinine 4.8 MG/DL (0.55-1.30) H Estimat Glomerular Filtration Rate 8.9 mL/min (>60) Glucose Level 108 MG/DL (74-106) H Calcium Level 8.6 MG/DL (8.5-10.1) Phosphorus Level 5.0 MG/DL (2.5-4.9) H Magnesium Level 2.1 MG/DL (1.8-2.4) Total Bilirubin 0.3 MG/DL (0.2-1.0) Aspartate Amino Transf (AST/SGOT) 23 U/L (15-37) Alanine Aminotransferase (ALT/SGPT) 15 U/L (12-78) Alkaline Phosphatase 111 U/L (46-116) Total Protein 6.2 G/DL (6.4-8.2) L Albumin 2.5 G/DL (3.4-5.0) L Globulin 3.7 g/dL Albumin/Globulin Ratio 0.7 (1.0-2.7) L Head: normocophalic Neck: no rigidity EENT: benign Neurologic Exam Mental Status: awake, alert Cranial Nerve II: visual juarez Cranial Nerves III, IV, : PERRLA, EOMI Cranial Nerve V: normal facial sensations Objective ao x 2 flapping noted tangential non focal Impression/Recommendations Problems: (1) Anemia (2) UTI (urinary tract infection) (3) Hypertension (4) ESRF (end stage renal failure) (5) Noncompliance (6) Head injury, acute (7) Cocaine abuse (8) Acute exacerbation of CHF (congestive heart failure) (9) Pain syndrome, chronic (10) Elevated troponin I level (11) Abdominal discomfort (12) Abnormal LFTs Diagnostic Impression acute encephalopathy, likely uremic agitation tele seroquel 25 mg bid standing HD per nephro PT OT as able no opioids Hay Johnson MD Mar 10, 2020 22:13
[2020-03-10] MEDS: LORazepam Inj 2mg/ml 1ml IV PRN (23:12)
[2020-03-11] VITALS: BP 142/79
[2020-03-11] MEDS: Morphine Sulfate 2mg/ml Inj(IV/IM USE ONLY) IVP PRN ×3 (02:25→20:20)
[2020-03-11] MEDS: Epoetin Alfa-EPBX(ESRD on dialysis)3000 units/ml vial SUBQ SCH (02:26)
--- NOTE | 2020-03-11 05:09 | NUR ---
NURSE NOTES: RECEIVED PATIENT FROM LUBA BALBUENA. PATIENT IS AWAKE, AAOX3, ON ROOM AIR, NO ACUTE DISTRESS NOTED. ON BILATERAL SOFT WRIST RESTRAINTS, PULSES PRESENT, NO REDNESS NOTED AT SITE. PIV INTACT AND PATENT. AWAITING FOR HEMODIALYSIS. FALL RISK PRECAUTION IMPLEMENTED. BED IS LOCKED AND LOW, BED ALARMS ACTIVE, SIDE RAILS UPX2 AND CALL LIGHT IS WITHIN REACH. WILL CONTINUE TO MONITOR.
[2020-03-11 06:41] VITALS: BP 181/109
[2020-03-11] MEDS: Heparin 5000 units/ml inj SUBQ SCH ×3 (06:46→22:53)
[2020-03-11] MEDS: HydrALAZINE 50mg tab ORAL SCH ×3 (06:47→22:52)
[2020-03-11] MEDS: Nitroglycerin 2% oint pkt TOPIC SCH ×3 (06:47→17:04)
[2020-03-11 08:00] VITALS: BP 137/79
--- NOTE | 2020-03-11 08:00 | NUR ---
NURSE NOTES: Received report from Anisa,RN. Patient is observed to be awake, alert, and oriented x3. Seen lying in bed with HOB elevated. Currently on 2L NC , no s/sx of SOB/Distress, no c/o any pain or discomfort. Patient on contact iso for (A) MRSA (N). IV site located on RFA and RH 22 GAUGE both lines asymptomatic, inplace and intact. HD site located on Right upper chest. no s/sx of redness or infection. Bed placed on lowest and locked, call light placed within reach and will continue to monitor for any changes in patient's condition.
[2020-03-11 08:03] LABS: PHOSPHORUS 3.8 MG/DL (2.5-4.9); POTASSIUM 4.7 MMOL/L (3.5-5.1)
--- NOTE | 2020-03-11 08:06 | NUR ---
HAND-OFF: Report given to MARY Kiran.
--- NOTE | 2020-03-11 09:24 | Nephrology Progress Note ---
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 #troponemia #CHF #h/o polysubtance abuse, cocaine abuser #HTN #anemia - next HD tomorrow - monitor drainage around the catheter site - monitor hemoglobin level - pending outpatient HD placement - cardiology eval - 2D Echo: EF30%, severe pulm HTN with PAP 90mmHg, global and regional wall motion abnormalities - switch to nifedipine to 60mg BID - add benazopril 20mg daily - increase hydralazine 100 TID -continue epo - monitor electrolytes time spent 65 min Subjective ROS Limited/Unobtainable: Yes Subjective reported drainage around hd cath site culture sent continue to monitor - might need to exchange hemoglobin stable agitated at times 2D Echo: EF30%, severe pulm HTN with PAP 90mmHg, global and regional wall motion abnormalities remains confused Objective Objective Last 24 Hour Vital Signs Date Time Temp Pulse Resp B/P (MAP) Pulse Ox O2 Delivery O2 Flow Rate FiO2 03/11/20 06:47 181/109 03/11/20 06:47 181/109 03/11/20 06:41 98.0 101 20 181/109 (133) 97 03/11/20 00:20 Room Air 93 03/11/20 00:00 97.5 96 20 142/79 (100) 96 03/10/20 23:42 111 20 152/97 93 03/10/20 23:12 111 20 152/97 93 03/10/20 21:00 Room Air 92 03/10/20 21:00 Room Air 03/10/20 20:00 96.5 111 20 152/97 (115) 93 03/10/20 17:09 106 165/93 03/10/20 17:09 165/93 03/10/20 17:01 97.5 03/10/20 16:00 97.2 106 19 165/93 (117) 94 03/10/20 13:45 150/82 03/10/20 12:58 97.5 03/10/20 12:00 97.5 98 19 150/82 (104) 95 03/10/20 09:41 97.4 Intake and Output 03/10/20 03/11/20 19:00 07:00 Intake Total 1320 ml 360 ml Balance 1320 ml 360 ml Intake Oral 1320 ml Other 360 ml # Voids 4 Laboratory Tests 03/11/20 05:43: Sodium Level 139, Potassium Level 4.7, Chloride Level 106, Carbon Dioxide Level 27, Anion Gap 6, Blood Urea Nitrogen 44H, Creatinine 3.0H, Estimat Glomerular Filtration Rate 15.3, Glucose Level 74, Calcium Level 8.0L, Phosphorus Level 3.8, Magnesium Level 1.9 Height (Feet): 5 Height (Inches): 4.00 Weight (Pounds): 160 Ace Munroe M.D. Mar 11, 2020 09:24
[2020-03-11] MEDS: Aspirin Baby 81mg ORAL SCH (09:56)
[2020-03-11 12:00] VITALS: BP 151/79
--- NOTE | 2020-03-11 14:26 | Surgery Progress Note ---
Surgery Progress Note Subjective Symptoms: improved, tolerating diet, passing flatus, BM Objective Last 24 Hour Vital Signs Date Time Temp Pulse Resp B/P (MAP) Pulse Ox O2 Delivery O2 Flow Rate FiO2 03/11/20 14:22 151/79 03/11/20 12:00 98.3 89 21 151/79 (103) 95 03/11/20 11:50 137/79 03/11/20 09:58 89 137/79 03/11/20 09:56 137/79 03/11/20 09:00 Room Air 03/11/20 08:00 97.9 89 21 137/79 (98) 97 03/11/20 06:47 181/109 03/11/20 06:47 181/109 03/11/20 06:41 98.0 101 20 181/109 (133) 97 03/11/20 00:20 Room Air 93 03/11/20 00:00 97.5 96 20 142/79 (100) 96 03/10/20 23:42 111 20 152/97 93 03/10/20 23:12 111 20 152/97 93 03/10/20 21:00 Room Air 92 03/10/20 21:00 Room Air 03/10/20 20:00 96.5 111 20 152/97 (115) 93 03/10/20 17:09 106 165/93 03/10/20 17:09 165/93 03/10/20 17:01 97.5 03/10/20 16:00 97.2 106 19 165/93 (117) 94 I&O Intake and Output 03/10/20 03/11/20 19:00 07:00 Intake Total 1320 ml 360 ml Balance 1320 ml 360 ml Intake Oral 1320 ml Other 360 ml # Voids 4 Dressing: dry Wound: clean Cardiovascular: RSR Respiratory: clear, decreased breath sounds Abdomen: soft, non-tender, present bowel sounds, non-distended Extremities: no tenderness, no cyanosis Laboratory Tests Test 03/11/20 05:43 Sodium Level 139 MMOL/L (136-145) Potassium Level 4.7 MMOL/L (3.5-5.1) Chloride Level 106 MMOL/L (98-107) Carbon Dioxide Level 27 MMOL/L (21-32) Anion Gap 6 mmol/L (5-15) Blood Urea Nitrogen 44 mg/dL (7-18) H Creatinine 3.0 MG/DL (0.55-1.30) H Estimat Glomerular Filtration Rate 15.3 mL/min (>60) Glucose Level 74 MG/DL (74-106) Calcium Level 8.0 MG/DL (8.5-10.1) L Phosphorus Level 3.8 MG/DL (2.5-4.9) Magnesium Level 1.9 MG/DL (1.8-2.4) Plan Problems: (1) Abnormal LFTs Assessment & Plan: Patient identified to have elevated LFTs on admission. Complaints abdominal discomfort. No imaging currently performed. Abdominal ultrasound ordered. Trend labs IV fluids will monitor recommendations with evaluation of medications and serial abdominal exams. Exam is limited due to patient having limited ability to cooperate. Gallbladder demonstrates focal wall thickening and edema, gallbladder wall just over 4 mm thick. There is also small amount of pericholecystic fluid No gallstones. Sonographic Lewis's sign is negative. Common bile duct measures 5 mm in diameter. No intrahepatic biliary ductal dilatation. Liver demonstrates slightly increased echogenicity, no focal abnormality. Portal vein and hepatic veins are patent. Pancreas is unremarkable. Spleen is unremarkable. Left kidney measures 7.7 cm in length. Right kidney measures 8 cm length. Both kidneys demonstrate increased echogenicity There is no hydronephrosis. No focal abnormality . Abdominal aorta is partially obscured by bowel gas, visualized portions are non-aneurysmal . Right pleural effusion incidentally noted Impression: Somewhat limited exam, as described Increased renal echogenicity bilaterally, indicating medical renal disease. Incidental finding of bilateral renal cysts Mildly increased hepatic echogenicity, likely medical renal disease Negative for gallstones. There is focal gallbladder wall thickening and some pericholecystic fluid. This is probably due to edema of systemic causes but the possibility of acalculous acute cholecystitis should also be considered Right pleural effusion Note incompletely visualized distal abdominal aorta (2) Abdominal discomfort Assessment & Plan: No significant bowel distention. Discomfort on palpation asking for pain medications. No nausea vomiting fever chills. Okay for diet as tolerated we will follow with serial exams Thank allowing participation's care (3) Anemia (4) UTI (urinary tract infection) (5) Hypertension (6) ESRF (end stage renal failure) (7) Noncompliance (8) Head injury, acute (9) Cocaine abuse (10) Acute exacerbation of CHF (congestive heart failure) (11) Pain syndrome, chronic (12) Elevated troponin I level Blu Lema Mar 11, 2020 14:26
[2020-03-11 16:00] VITALS: BP 141/77
--- NOTE | 2020-03-11 17:56 | General Progress Note ---
Subjective Allergies: Coded Allergies: SULFA (SULFONAMIDE ANTIBIOTICS) (Verified Allergy, Unknown, 02/24/20) Subjective Chart review since last seen. Patient still chronically encephalopathic. Awaiting HD placement. No further drainage from HD line. No acute events overnight per nursing. No acute events overnight per nursing. Further subjective history unable to be obtained due to ALOC Review of systems: Unable to be obtained due to ALOC Objective Last 24 Hour Vital Signs Date Time Temp Pulse Resp B/P (MAP) Pulse Ox O2 Delivery O2 Flow Rate FiO2 03/11/20 17:05 77 141/77 03/11/20 17:04 141/77 03/11/20 14:22 151/79 03/11/20 12:00 98.3 89 21 151/79 (103) 95 03/11/20 11:50 137/79 03/11/20 09:58 89 137/79 03/11/20 09:56 137/79 03/11/20 09:00 Room Air 03/11/20 08:00 97.9 89 21 137/79 (98) 97 03/11/20 06:47 181/109 03/11/20 06:47 181/109 03/11/20 06:41 98.0 101 20 181/109 (133) 97 03/11/20 00:20 Room Air 93 03/11/20 00:00 97.5 96 20 142/79 (100) 96 03/10/20 23:42 111 20 152/97 93 03/10/20 23:12 111 20 152/97 93 03/10/20 21:00 Room Air 92 03/10/20 21:00 Room Air 03/10/20 20:00 96.5 111 20 152/97 (115) 93 Intake and Output 03/10/20 03/11/20 19:00 07:00 Intake Total 1320 ml 360 ml Balance 1320 ml 360 ml Intake Oral 1320 ml Other 360 ml # Voids 4 Laboratory Tests 03/11/20 05:43: Sodium Level 139, Potassium Level 4.7, Chloride Level 106, Carbon Dioxide Level 27, Anion Gap 6, Blood Urea Nitrogen 44H, Creatinine 3.0H, Estimat Glomerular Filtration Rate 15.3, Glucose Level 74, Calcium Level 8.0L, Phosphorus Level 3.8, Magnesium Level 1.9 Height (Feet): 5 Height (Inches): 4.00 Weight (Pounds): 160 Objective General: WDWN female in NAD, Altered. A&O x 2. Awake and alert. I HEENT: Normocephalic cephalic atraumatic, pupils equal round reactive to light and accommodation, nares patent and no symmetrical, no tonsillar exudates, mucous membranes moist CV: Regular rate regular rhythm, no murmurs, rubs, or gallops. New HD line C/d/i. Pulm: Lungs clear to auscultation bilaterally. No wheezes, rhonchi, or rales GI: Soft, nontender, nondistended, bowel sounds present Neuro: CN 2-12 intact bilaterally, no focal signs. Moving all extremities Ext: No lower extremity edema bilaterally Skin: no rashes lesions or ulcers Msk: Joints symmetrical in upper extremity and lower extremity bilaterally, no joint swelling. Lymph: No lymphadenopathy in upper extremity and lower extremity Assessment/Plan Assessment/Plan: 74 yo F with PMHX CHF. CKD4, opioid abuser, chronic untraceable pain syndrome, admitted for CHF exacerbation and fluid overload, now on HD. #Hx of CKD V now ESRD s/p HD access #Rule out Line infection --> highly doubt, but cultures pending from HD line #Acute metabolic encephalopathy - Waxes and Wanes - Appreciate Nephro recommendations: Dr. Munroe -Currently Euvolemic - HD arrangements pending #Acute on Chronic Systolic CHF Exacerbation-Resolved # EF 20-25%. Global hypokinesis D/w Cardiology. Ischemia vs. history of cocaine use -Asa 81 -Benazepril PO -Appreciate cardiology recommendations #Acute blood loss anemia 2/2 tunneled cath line removal-Resolved S/P PRBC transfusion 02/26 with appropriate response #R/O Cholecystitis--> ruled out -Abdominal ultrasound: gallbladder thickening - > D/w Surgery. No suspicion for cholecystitis #hepatitis A positive - consider GI eval #Urinary tract infection -S/P Rocephin Tx #Opioid abuse-Stable #H/o cocaine abuse-Stable - Social work consult FENPPX DVTPPX: Diet: renal Lines: tunneled line PT/OT: pending Code status: full per policy Dispo: SNF eventually Reason for Continued Hospitalization: ESRD, encephalopathy MIPS (Merit-based Incentive Payment System) Applicable CPT: 53500, 69896 CHECK ALL THAT ARE MET: [] Measure #5 (CHF): All ages. Prescribe BLACK/ARB upon discharge for patients with left ventricular systolic dysfunction. If not, the reason is clearly documented in the medical chart .[] Measure #8 (CHF): All ages. Prescribe a beta marlys upon discharge for patients with left ventricular systolic dysfunction. If not, the reason is clearly documented in the medical chart. [x] Measure #47: Advance care plan or surrogate decision maker documented in the medical record. [x] Measure #130 The provider has documented, updated, or reviewed the patients current medication list and has documented it in the patients note. [] Measure #374 (All): Send report to referring provider. [] Measure #407(Sepsis due to MSSA bacteremia): Age 18+ Patient treated with a beta-lactam antibiotic (Nafcillin, Oxacillin or Cefazolin) as definitive therapy. MEDICAL COMPLEXITYHigh complexity medical decision making (need 2/3 categories)Problem - need 4 points [x]Acute/new problem with new plan for workup (4 points, 1 max) [] Acute/new problem without additional workup (3 points, 1 max) [] Unstable chronic problem actively being managed (2 point each, 2 max) [] Stable chronic problem actively being managed (1 point each, 2 max) [] Self-limited/transient process (constipation, muscle ache, etc) (1 point each, 2 max) Data - need 4 points [x] Reviewed labs/imaging studies (1 points, 2 max) [x] Independent review of imaging (EKG, xrays, etc) (2 points, 2 max) [x] Discussed case with consult/other MD/RN (2 points, 2 max) High Risk - qualify if have one of the following: [] Severe exacerbation of acute problem, acute mental status change, IV narcotics, monitoring drug levels (vancomycin, INR, tacrolimus etc) I spent 36 minutes on this patient's case, and 22 mins was dedicated to counseling and/or care coordination. Discussed with nephro, Bedside RN Time of note may not reflect time of encounter Silvestre Cruz D.O. Mar 11, 2020 17:56
--- NOTE | 2020-03-11 18:59 | NUR ---
NURSE HAND-OFF: Important Events on Shift:n/a Patient Status: stable Diet: renal mech soft Pending Orders: n/a Pending Results/Labs:n/a Pending MD notification:n/a Latest Vital Signs: Temperature 97.9 , Pulse 77 , B/P 141 /77 , Respiratory Rate 20 , O2 SAT 97 , Nasal Cannula, O2 Flow Rate 2.0 . Vital Sign Comment: stable Latest Mcconnell Fall Score: 75 Fall Risk: High Risk Safety Measures: Call light Within Reach, Bed Alarm Zone 1, Side Rails Side Rails x3, Bed position Low and Locked. Fall Precautions: Yellow Socks Door Sign Patient Fall Education Report given to LUBA Delgado.
[2020-03-11 20:00] VITALS: BP 128/69
--- NOTE | 2020-03-11 20:02 | NUR ---
NURSE NOTES: RECEIVED PATIENT LYING IN BED, AWAKE, ALERT/ORIENTED X2-3, REALITY ORIENTATION PROVIDED DURING ASSESSMENT, NO SIGNS AND SYMPTOMS OF ACUTE CARDIO RESPIRATORY DISTRESS/SHORTNESS OF BREATH, DENIES CHEST PAIN, NO PERIPHERAL EDEMA NOTED. IV INTACT TO RIGHT UPPER ARM/GAUGE 22, NO REDNESS/SWELLING NOTED. BILATERAL WRIST RESTRAINT INTACT TO PREVENT PATIENT FROM SAFETY/PULLING MEDICAL DEVICES. ABDOMEN SOFT/NON DISTENDED/NON TENDER, ASSISTED TO BEDSIDE COMMODE, TOLERATED WELL, RETURNED TO BED WITHOUT INCIDENT, NO BOWEL MOVEMENT NOTED. SIDE RAILS UP X3/BED IN LOWEST POSITION FOR SAFETY, FREQUENT ROUNDING FOR SAFETY/NEEDS, CONTINUE WITH CURRENT PLAN OF CARE. NAD.
--- NOTE | 2020-03-11 20:22 | Neurology Progress Note ---
Interim History Interim History ROS Limited/Unobtainable: Yes Interim History confused no new deficits Objective Physical Exam Last Vital Signs Date Time Temp Pulse Resp B/P (MAP) Pulse Ox O2 Delivery O2 Flow Rate FiO2 03/11/20 17:05 77 141/77 03/11/20 16:00 97.9 20 97 03/11/20 09:00 Room Air 03/11/20 00:20 93 03/04/20 06:00 2.0 Laboratory Tests Test 03/11/20 05:43 Sodium Level 139 MMOL/L (136-145) Potassium Level 4.7 MMOL/L (3.5-5.1) Chloride Level 106 MMOL/L (98-107) Carbon Dioxide Level 27 MMOL/L (21-32) Anion Gap 6 mmol/L (5-15) Blood Urea Nitrogen 44 mg/dL (7-18) H Creatinine 3.0 MG/DL (0.55-1.30) H Estimat Glomerular Filtration Rate 15.3 mL/min (>60) Glucose Level 74 MG/DL (74-106) Calcium Level 8.0 MG/DL (8.5-10.1) L Phosphorus Level 3.8 MG/DL (2.5-4.9) Magnesium Level 1.9 MG/DL (1.8-2.4) Head: normocophalic Neck: no rigidity EENT: benign Neurologic Exam Mental Status: awake, alert Cranial Nerve II: visual juarez Cranial Nerves III, IV, : PERRLA, EOMI Cranial Nerve V: normal facial sensations Objective ao x 2 flapping noted tangential non focal Impression/Recommendations Problems: (1) Anemia (2) UTI (urinary tract infection) (3) Hypertension (4) ESRF (end stage renal failure) (5) Noncompliance (6) Head injury, acute (7) Cocaine abuse (8) Acute exacerbation of CHF (congestive heart failure) (9) Pain syndrome, chronic (10) Elevated troponin I level (11) Abdominal discomfort (12) Abnormal LFTs Diagnostic Impression acute encephalopathy, likely uremic agitation tele seroquel 25 mg bid standing HD per nephro PT OT as able no opioids Hay Johnson MD Mar 11, 2020 20:22
--- NOTE | 2020-03-11 21:51 | Psychiatric Progress Note ---
Psychiatry Progress Note Psychiatry Progress Note Medications Current Medications Medications (Trade) Dose Ordered Sig/Sugey Route PRN Reason Start Time Stop Time Status Last Admin Dose Admin Acetaminophen (Tylenol) 650 mg Q6H PRN ORAL Mild Pain (Pain Scale 1-3) 02/25/20 03:30 03/26/20 03:29 03/02/20 10:17 Al Hydroxide/Mg Hydroxide (Mylanta II) 30 ml Q6H PRN ORAL Abdominal cramps 03/04/20 13:00 04/03/20 12:59 Aspirin (ASA) 81 mg DAILY ORAL 02/25/20 09:00 04/10/20 08:59 03/11/20 09:56 Benazepril HCl (Lotensin) 40 mg DAILY ORAL 03/01/20 09:00 03/31/20 08:59 03/11/20 09:56 Calcium Acetate (Phoslo) 667 mg TIAC ORAL 02/27/20 06:30 05/27/20 06:29 03/11/20 17:04 Diphenhydramine HCl (Benadryl) 50 mg Q6H PRN ORAL Itching 02/25/20 03:30 03/26/20 03:29 03/10/20 04:00 Epoetin Mychal (Epoetin Mychal(ESRD on dialysis)) 6,000 unit SUN-SUN-SUN SUBQ 03/08/20 21:00 06/06/20 20:59 03/11/20 02:26 Furosemide (Lasix) 60 mg BID IV 02/25/20 09:00 03/26/20 08:59 03/11/20 17:04 Heparin Sodium (Porcine) (Heparin 5000 units/ml) 5,000 units EVERY 8 HOURS SUBQ 02/25/20 06:00 04/10/20 05:59 03/11/20 14:22 Hydralazine HCl (Apresoline) 25 mg Q6H PRN ORAL SBP above 160 02/26/20 02:00 05/26/20 01:59 03/01/20 01:09 Hydralazine HCl (Apresoline) 100 mg Q8HR ORAL 03/01/20 14:00 05/27/20 13:59 03/11/20 14:22 Lorazepam (Ativan 2mg/ml 1ml) 0.5 mg Q4H PRN IV For Anxiety 03/09/20 16:30 03/16/20 16:29 03/10/20 23:12 Morphine Sulfate (Morphine Sulfate) 1 mg Q3H PRN IVP Severe Pain (Pain Scale 7-10) 03/09/20 16:19 03/16/20 16:18 03/11/20 20:20 Nifedipine (Procardia XL) 60 mg BID ORAL 03/07/20 18:00 04/01/20 08:59 03/11/20 17:05 Nitroglycerin (Nitro-Bid) 1 inch TID@0600,1200,1800 TOPIC 02/26/20 02:00 03/27/20 01:59 03/11/20 17:04 Quetiapine Fumarate (SEROqueL) 75 mg Q12HR ORAL 03/08/20 09:52 04/22/20 09:51 03/11/20 20:52 Neurological/Psychiatric: Reports: anxiety, depressed, emotional problems; Denies: no symptoms, headache, numbness, paresthesia, pre-existing deficit, seizure, tingling, tremors, weakness, other Allergies: Coded Allergies: SULFA (SULFONAMIDE ANTIBIOTICS) (Verified Allergy, Unknown, 02/24/20) Objective Data Height (Feet): 5 Height (Inches): 4.00 Weight (Pounds): 160 General Appearance: other - periods of confusion Additional Comments: MENTAL STATUS EXAMINATION: Patient is having waxing and waning consciousness. Mood is anxious. Affect is blunted, congruent with mood. Thought process is concrete. Thought content, no suicidal or homicidal ideation. Cognition is impaired. Insight and judgment is impaired. ASSESSMENT: [place] I Acute metabolic encephalopathy. Dementia. [place] II Deferred. [place] III As above. [place] IV Low. [place] V 20. PLAN: 1. We will start patient on Haldol p.r.n. 2. Bilateral soft restraints. London Mckeon MD Mar 11, 2020 21:51
--- NOTE | 2020-03-11 23:15 | Consultation ---
DATE OF CONSULTATION: 03/11/2020 CONSULTING PHYSICIAN: London Mckeon MD HISTORY OF PRESENT ILLNESS: This is a 74-year-old female with a history of dementia with psychotic features who has been admitted to the hospital for medical stabilization. Patient has a history of CHF as well as cocaine abuse. She presented with disorganized speech and behavior, easily agitated. Patient has poor memory, unable to be engaged. She is having episodes of agitation. PAST PSYCHIATRIC HISTORY: Anxiety, agitation, depression. PAST MEDICAL HISTORY: Anemia, end-stage renal failure, head injury. ALLERGIES: Sulfa. SUBSTANCE ABUSE HISTORY: Has a history of cocaine abuse. Patient's system is positive for cocaine. MENTAL STATUS EXAMINATION: Patient is awake, disoriented to date and situation. Mood is agitated. Affect is flat. Thought process, disorganized. Thought content, there is no suicidal or homicidal ideation. Cognition is impaired. Insight and judgment is impaired. ASSESSMENT: [place] I Psychotic disorder. Cognitive impairment. Cocaine abuse. [place] II Deferred. [place] III As above. [place] IV Low. [place] V 20. PLAN: 1. We will start the patient on antipsychotics. 2. Discussed the case with the nurse. London Mckeon M.D. DR: HEDY JOB#: [id number] CC:
[2020-03-12] VITALS: BP 110/53
[2020-03-12] MEDS: Morphine Sulfate 2mg/ml Inj(IV/IM USE ONLY) IVP PRN ×4 (03:30→19:37)
[2020-03-12 04:00] VITALS: BP 134/68
[2020-03-12] MEDS: HydrALAZINE 50mg tab ORAL SCH ×3 (06:23→20:54)
[2020-03-12] MEDS: Heparin 5000 units/ml inj SUBQ SCH ×3 (06:24→21:04)
[2020-03-12] MEDS: Nitroglycerin 2% oint pkt TOPIC SCH ×3 (06:26→17:14)
[2020-03-12 07:25] LABS: HEMOGLOBIN 7.1 G/DL (12.0-16.0); MEAN CORPUSCULAR VOLUME 99 FL (80-99); PLATELET COUNT 143 K/UL (150-450); RED BLOOD COUNT 2.42 M/UL (4.20-5.40); RED CELL DISTRIBUTION WIDTH 14.3 % (11.6-14.8); WHITE BLOOD COUNT 6.7 K/UL (4.8-10.8)
--- NOTE | 2020-03-12 07:35 | NUR ---
NURSE HAND-OFF: Important Events on Shift:[PATIENT SLEPT THROUGHOUT THE NIGHT IN LONG INTERVALS-0400 PATIENT VERY RESTLESS, AGITATED, KEPT ASKING FOR MEDICATION 5 MINUTES AFTER RECEIVING IT] Patient Status: [STABLE] Diet: [RENAL] Pending Orders: [AM LABS] Pending Results/Labs:[] Pending MD notification:[] Latest Vital Signs: Temperature 98.0 , Pulse 92 , B/P 139 /73 , Respiratory Rate 18 , O2 SAT 93 , Nasal Cannula, O2 Flow Rate 2.0 . Vital Sign Comment: [STABLE, AFEBRILE] Latest Mcconnell Fall Score: 75 Fall Risk: High Risk Safety Measures: Call light Within Reach, Bed Alarm Zone 1, Side Rails Side Rails x3, Bed position Low and Locked. Fall Precautions: Yellow Socks Door Sign Patient Fall Education Report given to [MARY GUTIERREZ].
[2020-03-12 07:43] LABS: ALBUMIN 2.6 G/DL (3.4-5.0); ALBUMIN/GLOBULIN RATIO 0.6 (1.0-2.7); BILIRUBIN,TOTAL 0.3 MG/DL (0.2-1.0); CALCIUM 8.3 MG/DL (8.5-10.1); CREATININE 4.2 MG/DL (0.55-1.30); PHOSPHORUS 5.1 MG/DL (2.5-4.9); POTASSIUM 5.1 MMOL/L (3.5-5.1)
--- NOTE | 2020-03-12 07:51 | NUR ---
Received report from LUBA Delgado. Patient is observed to be awake, alert, and oriented x3. Seen lying in bed with HOB elevated. Currently on 2L NC , no s/sx of SOB/Distress, no c/o any pain or discomfort. Patient on contact iso for (A) MRSA (N). IV site located on HAY [address] GAUGE both lines asymptomatic, inplace and intact. HD site located on Right upper chest. no s/sx of redness or infection. Bed placed on lowest and locked, call light placed within reach and will continue to monitor for any changes in patient's condition.
[2020-03-12 08:00] VITALS: BP 166/89
[2020-03-12] MEDS: Aspirin Baby 81mg ORAL SCH (08:49)
--- NOTE | 2020-03-12 09:03 | NUR ---
NURSE NOTES: Patient refused to sign consent for blood transfusion. Charge nurse made aware, reattempted to get consent for blood transfusion. Patient refused again. Dr. Munroe made aware.
[2020-03-12] MEDS: HydrALAZINE 25mg tab ORAL PRN (10:39)
--- NOTE | 2020-03-12 10:57 | NUR ---
NURSE NOTES: Retried asking consent for patient to received hemodialysis, patient continued to refuse. Dr Munroe made aware.
--- NOTE | 2020-03-12 11:38 | Nephrology Progress Note ---
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 #troponemia #CHF #h/o polysubtance abuse, cocaine abuser #HTN #anemia - next HD today--> refusing HD and blood transfusion today - monitor drainage around the catheter site - monitor hemoglobin level - pending outpatient HD placement - cardiology eval - 2D Echo: EF30%, severe pulm HTN with PAP 90mmHg, global and regional wall motion abnormalities - switch to nifedipine to 60mg BID - add benazopril 20mg daily - increase hydralazine 100 TID -continue epo - monitor electrolytes time spent 65 min Subjective ROS Limited/Unobtainable: Yes Subjective hemoglobin 7.1 refusing transfusion and HD today reported drainage around hd cath site culture sent continue to monitor - might need to exchange hemoglobin stable agitated at times 2D Echo: EF30%, severe pulm HTN with PAP 90mmHg, global and regional wall motion abnormalities remains confused Objective Objective Last 24 Hour Vital Signs Date Time Temp Pulse Resp B/P (MAP) Pulse Ox O2 Delivery O2 Flow Rate FiO2 03/12/20 10:41 104 166/89 03/12/20 10:39 166/89 03/12/20 10:39 166/89 03/12/20 09:00 Room Air 03/12/20 08:00 97.2 104 18 166/89 (114) 94 03/12/20 06:26 139/73 03/12/20 06:23 139/73 03/12/20 04:00 98.0 92 18 134/68 (90) 93 03/12/20 04:00 98.0 03/12/20 00:00 98.0 98 18 110/53 (72) 94 03/11/20 22:52 115/84 03/11/20 21:00 Room Air 03/11/20 20:50 97.9 03/11/20 20:00 98.2 95 18 128/69 (88) 95 03/11/20 17:05 77 141/77 03/11/20 17:04 141/77 03/11/20 16:00 97.9 77 20 141/77 (98) 97 03/11/20 14:22 151/79 03/11/20 12:00 98.3 89 21 151/79 (103) 95 03/11/20 11:50 137/79 Intake and Output 03/11/20 03/12/20 19:00 07:00 Intake Total 600 ml 480 ml Balance 600 ml 480 ml Intake Oral 600 ml 480 ml # Voids 3 # Bowel Movements 1 Laboratory Tests 03/12/20 05:50: White Blood Count 6.7, Red Blood Count 2.42L, Hemoglobin 7.1L, Hematocrit 24.0L, Mean Corpuscular Volume 99, Mean Corpuscular Hemoglobin 29.2, Mean Corpuscular Hemoglobin Concent 29.4L, Red Cell Distribution Width 14.3, Platelet Count 143L, Mean Platelet Volume 7.3, Neutrophils (%) (Auto) , Lymphocytes (%) (Auto) , Monocytes (%) (Auto) , Eosinophils (%) (Auto) , Basophils (%) (Auto) , Neutrophils % (Manual) [Pending], Lymphocytes % (Manual) [Pending], Platelet Estimate [Pending], Platelet Morphology [Pending], Sodium Level 137, Potassium Level 5.1, Chloride Level 103, Carbon Dioxide Level 26, Anion Gap 9, Blood Urea Nitrogen 68H, Creatinine 4.2H, Estimat Glomerular Filtration Rate 10.4, Glucose Level 75, Calcium Level 8.3L, Phosphorus Level 5.1H, Magnesium Level 1.9, Total Bilirubin 0.3, Aspartate Amino Transf (AST/SGOT) 21, Alanine Aminotransferase (ALT/SGPT) 16, Alkaline Phosphatase 113, Total Protein 6.8, Albumin 2.6L, Globulin 4.2, Albumin/Globulin Ratio 0.6L Height (Feet): 5 Height (Inches): 4.00 Weight (Pounds): 160 General Appearance: no apparent distress EENT: PERRL/EOMI, normal ENT inspection Neck: non-tender, normal alignment Cardiovascular: normal peripheral pulses, normal rate Abdomen: normal bowel sounds, non tender Neurologic: alert, disoriented Ace Munroe M.D. Mar 12, 2020 11:38
[2020-03-12 12:00] VITALS: BP 141/77
--- NOTE | 2020-03-12 13:41 | Surgery Progress Note ---
Surgery Progress Note Subjective Additional Comments resting comfortable no n/v labs okay exam stable no signs of infection Objective Last 24 Hour Vital Signs Date Time Temp Pulse Resp B/P (MAP) Pulse Ox O2 Delivery O2 Flow Rate FiO2 03/12/20 12:00 97.6 96 18 141/77 (98) 94 03/12/20 11:57 141/77 03/12/20 10:41 104 166/89 03/12/20 10:39 166/89 03/12/20 10:39 166/89 03/12/20 09:00 Room Air 03/12/20 08:00 97.2 104 18 166/89 (114) 94 03/12/20 06:26 139/73 03/12/20 06:23 139/73 03/12/20 04:00 98.0 92 18 134/68 (90) 93 03/12/20 04:00 98.0 03/12/20 00:00 98.0 98 18 110/53 (72) 94 03/11/20 22:52 115/84 03/11/20 21:00 Room Air 03/11/20 20:50 97.9 03/11/20 20:00 98.2 95 18 128/69 (88) 95 03/11/20 17:05 77 141/77 03/11/20 17:04 141/77 03/11/20 16:00 97.9 77 20 141/77 (98) 97 03/11/20 14:22 151/79 I&O Intake and Output 03/11/20 03/12/20 19:00 07:00 Intake Total 600 ml 480 ml Balance 600 ml 480 ml Intake Oral 600 ml 480 ml # Voids 3 # Bowel Movements 1 Dressing: dry Cardiovascular: RSR Respiratory: decreased breath sounds Abdomen: soft, non-tender, present bowel sounds, non-distended Extremities: no edema, no tenderness, no cyanosis Laboratory Tests Test 03/12/20 05:50 White Blood Count 6.7 K/UL (4.8-10.8) Red Blood Count 2.42 M/UL (4.20-5.40) L Hemoglobin 7.1 G/DL (12.0-16.0) L Hematocrit 24.0 % (37.0-47.0) L Mean Corpuscular Volume 99 FL (80-99) Mean Corpuscular Hemoglobin 29.2 PG (27.0-31.0) Mean Corpuscular Hemoglobin Concent 29.4 G/DL (32.0-36.0) L Red Cell Distribution Width 14.3 % (11.6-14.8) Platelet Count 143 K/UL (150-450) L Mean Platelet Volume 7.3 FL (6.5-10.1) Neutrophils (%) (Auto) % (45.0-75.0) Lymphocytes (%) (Auto) % (20.0-45.0) Monocytes (%) (Auto) % (1.0-10.0) Eosinophils (%) (Auto) % (0.0-3.0) Basophils (%) (Auto) % (0.0-2.0) Differential Total Cells Counted 100 Neutrophils % (Manual) 51 % (45-75) Lymphocytes % (Manual) 33 % (20-45) Monocytes % (Manual) 10 % (1-10) Eosinophils % (Manual) 6 % (0-3) H Basophils % (Manual) 0 % (0-2) Band Neutrophils 0 % (0-8) Platelet Estimate Decreased L Platelet Morphology Normal Hypochromasia 1+ Anisocytosis 1+ Sodium Level 137 MMOL/L (136-145) Potassium Level 5.1 MMOL/L (3.5-5.1) Chloride Level 103 MMOL/L (98-107) Carbon Dioxide Level 26 MMOL/L (21-32) Anion Gap 9 mmol/L (5-15) Blood Urea Nitrogen 68 mg/dL (7-18) H Creatinine 4.2 MG/DL (0.55-1.30) H Estimat Glomerular Filtration Rate 10.4 mL/min (>60) Glucose Level 75 MG/DL (74-106) Calcium Level 8.3 MG/DL (8.5-10.1) L Phosphorus Level 5.1 MG/DL (2.5-4.9) H Magnesium Level 1.9 MG/DL (1.8-2.4) Total Bilirubin 0.3 MG/DL (0.2-1.0) Aspartate Amino Transf (AST/SGOT) 21 U/L (15-37) Alanine Aminotransferase (ALT/SGPT) 16 U/L (12-78) Alkaline Phosphatase 113 U/L (46-116) Total Protein 6.8 G/DL (6.4-8.2) Albumin 2.6 G/DL (3.4-5.0) L Globulin 4.2 g/dL Albumin/Globulin Ratio 0.6 (1.0-2.7) L Plan Problems: (1) Abnormal LFTs Assessment & Plan: Patient identified to have elevated LFTs on admission. Complaints abdominal discomfort. No imaging currently performed. Abdominal ultrasound ordered. Trend labs IV fluids will monitor recommendations with evaluation of medications and serial abdominal exams. Exam is limited due to patient having limited ability to cooperate. Gallbladder demonstrates focal wall thickening and edema, gallbladder wall just over 4 mm thick. There is also small amount of pericholecystic fluid No gallstones. Sonographic Lewis's sign is negative. Common bile duct measures 5 mm in diameter. No intrahepatic biliary ductal dilatation. Liver demonstrates slightly increased echogenicity, no focal abnormality. Portal vein and hepatic veins are patent. Pancreas is unremarkable. Spleen is unremarkable. Left kidney measures 7.7 cm in length. Right kidney measures 8 cm length. Both kidneys demonstrate increased echogenicity There is no hydronephrosis. No focal abnormality . Abdominal aorta is partially obscured by bowel gas, visualized portions are non-aneurysmal . Right pleural effusion incidentally noted Impression: Somewhat limited exam, as described Increased renal echogenicity bilaterally, indicating medical renal disease. Incidental finding of bilateral renal cysts Mildly increased hepatic echogenicity, likely medical renal disease Negative for gallstones. There is focal gallbladder wall thickening and some pericholecystic fluid. This is probably due to edema of systemic causes but the possibility of acalculous acute cholecystitis should also be considered Right pleural effusion Note incompletely visualized distal abdominal aorta (2) Abdominal discomfort Assessment & Plan: No significant bowel distention. Discomfort on palpation asking for pain medications. No nausea vomiting fever chills. Okay for diet as tolerated we will follow with serial exams Thank allowing participation's care (3) Anemia (4) UTI (urinary tract infection) (5) Hypertension (6) ESRF (end stage renal failure) (7) Noncompliance (8) Head injury, acute (9) Cocaine abuse (10) Acute exacerbation of CHF (congestive heart failure) (11) Pain syndrome, chronic (12) Elevated troponin I level Blu Lema Mar 12, 2020 13:41
[2020-03-12 16:00] VITALS: BP 110/75
--- NOTE | 2020-03-12 16:29 | NUR ---
CASE MANAGEMENT: REVIEW 03/12/2020 SI:CHF EXACERBATION VS: T 97.6 HR 96 RR 18 B/P 141/77 SATS 94% ON RA LABS: HGB 7.1 HCT 24 [id number] CR 4.2 CA 8.3 PHOS 5.1 IS:LASIX IV BID ASA PO QD LOTENSIN PO QD HYDRALAZINE PO Q8H PHOSLO PO TIAC MED/SURG
--- NOTE | 2020-03-12 18:47 | General Progress Note ---
Subjective Date patient seen: Mar 12, 2020 Allergies: Coded Allergies: SULFA (SULFONAMIDE ANTIBIOTICS) (Verified Allergy, Unknown, 02/24/20) Subjective No acute events overnight per nursing. Patient continues to be confused, agitated. No insight into medical condition. Refusing HD and PRBC transfusion. Seen by psych. Further subjective history unable to be obtained due to ALOC Review of systems: Unable to be obtained due to ALOC Objective Last 24 Hour Vital Signs Date Time Temp Pulse Resp B/P (MAP) Pulse Ox O2 Delivery O2 Flow Rate FiO2 03/12/20 17:14 103 110/75 03/12/20 17:14 110/75 03/12/20 16:00 97.9 103 18 110/75 (87) 96 03/12/20 13:47 141/77 03/12/20 12:00 97.6 96 18 141/77 (98) 94 03/12/20 11:57 141/77 03/12/20 10:41 104 166/89 03/12/20 10:39 166/89 03/12/20 10:39 166/89 03/12/20 09:00 Room Air 03/12/20 08:00 97.2 104 18 166/89 (114) 94 03/12/20 06:26 139/73 03/12/20 06:23 139/73 03/12/20 04:00 98.0 92 18 134/68 (90) 93 03/12/20 04:00 98.0 03/12/20 00:00 98.0 98 18 110/53 (72) 94 03/11/20 22:52 115/84 03/11/20 21:00 Room Air 03/11/20 20:50 97.9 03/11/20 20:00 98.2 95 18 128/69 (88) 95 Intake and Output 03/11/20 03/12/20 19:00 07:00 Intake Total 600 ml 480 ml Balance 600 ml 480 ml Intake Oral 600 ml 480 ml # Voids 3 # Bowel Movements 1 Laboratory Tests 03/12/20 05:50: White Blood Count 6.7, Red Blood Count 2.42L, Hemoglobin 7.1L, Hematocrit 24.0L, Mean Corpuscular Volume 99, Mean Corpuscular Hemoglobin 29.2, Mean Corpuscular Hemoglobin Concent 29.4L, Red Cell Distribution Width 14.3, Platelet Count 143L, Mean Platelet Volume 7.3, Neutrophils (%) (Auto) , Lymphocytes (%) (Auto) , Monocytes (%) (Auto) , Eosinophils (%) (Auto) , Basophils (%) (Auto) , Differential Total Cells Counted 100, Neutrophils % (Manual) 51, Lymphocytes % (Manual) 33, Monocytes % (Manual) 10, Eosinophils % (Manual) 6H, Basophils % (Manual) 0, Band Neutrophils 0, Platelet Estimate DecreasedL, Platelet Morphology Normal, Hypochromasia 1+, Anisocytosis 1+, Sodium Level 137, Potassium Level 5.1, Chloride Level 103, Carbon Dioxide Level 26, Anion Gap 9, Blood Urea Nitrogen 68H, Creatinine 4.2H, Estimat Glomerular Filtration Rate 10.4, Glucose Level 75, Calcium Level 8.3L, Phosphorus Level 5.1H, Magnesium Level 1.9, Total Bilirubin 0.3, Aspartate Amino Transf (AST/SGOT) 21, Alanine Aminotransferase (ALT/SGPT) 16, Alkaline Phosphatase 113, Total Protein 6.8, Albumin 2.6L, Globulin 4.2, Albumin/Globulin Ratio 0.6L Height (Feet): 5 Height (Inches): 4.00 Weight (Pounds): 160 Objective General: WDWN female in NAD, Altered. A&O x 2. Awake and alert. In restraints HEENT: Normocephalic cephalic atraumatic, pupils equal round reactive to light a nd accommodation, nares patent and no symmetrical, no tonsillar exudates, mucous membranes moist CV: Regular rate regular rhythm, no murmurs, rubs, or gallops. New HD line C/d/i. Pulm: Lungs clear to auscultation bilaterally. No wheezes, rhonchi, or rales GI: Soft, nontender, nondistended, bowel sounds present Neuro: CN 2-12 intact bilaterally, no focal signs. Moving all extremities Ext: No lower extremity edema bilaterally Skin: no rashes lesions or ulcers Msk: Joints symmetrical in upper extremity and lower extremity bilaterally, no joint swelling. Lymph: No lymphadenopathy in upper extremity and lower extremity Assessment/Plan Assessment/Plan: 74 yo F with PMHX CHF. CKD4, opioid abuser, chronic untraceable pain syndrome, admitted for CHF exacerbation and fluid overload, now on HD. #Hx of CKD V now ESRD s/p HD access #Rule out Line infection --> highly doubt, but cultures pending from HD line #Acute metabolic encephalopathy - Waxes and Wanes - Appreciate Nephro recommendations: Dr. Munroe -Currently Euvolemic - HD arrangements pending - patient currently refusing HD. Has no insight/understanding of medical condition. #Acute on Chronic Systolic CHF Exacerbation-Resolved # EF 20-25%. Global hypokinesis D/w Cardiology. Ischemia vs. history of cocaine use -Asa 81 -Benazepril PO -Appreciate cardiology recommendations #Acute blood loss anemia 2/2 tunneled cath line removal-Resolved S/P PRBC transfusion 02/26 with appropriate response - PRBC for hgb <7 #R/O Cholecystitis--> ruled out -Abdominal ultrasound: gallbladder thickening - > D/w Surgery. No suspicion for cholecystitis #hepatitis A positive - GI consulted: Dr. Figueroa #Urinary tract infection -S/P Rocephin Tx #Opioid abuse-Stable #H/o cocaine abuse-Stable - Social work consult FENPPX DVTPPX: HSQ Diet: renal Lines: tunneled line PT/OT: pending Code status: full per policy Dispo: SNF eventually Reason for Continued Hospitalization: ESRD, encephalopathy MIPS ([employer]-based Incentive Payment System) Applicable CPT: 33084, 24570 CHECK ALL THAT ARE MET: [] Measure #5 (CHF): All ages. Prescribe BLACK/ARB upon discharge for patients with left ventricular systolic dysfunction. If not, the reason is clearly documented in the medical chart .[] Measure #8 (CHF): All ages. Prescribe a beta marlys upon discharge for patients with left ventricular systolic dysfunction. If not, the reason is clearly documented in the medical chart. [x] Measure #47: Advance care plan or surrogate decision maker documented in the medical record. [x] Measure #130 The provider has documented, updated, or reviewed the patients current medication list and has documented it in the patients note. [] Measure #374 (All): Send report to referring provider. [] Measure #407(Sepsis due to MSSA bacteremia): Age 18+ Patient treated with a beta-lactam antibiotic (Nafcillin, Oxacillin or Cefazolin) as definitive therapy. MEDICAL COMPLEXITYHigh complexity medical decision making (need 2/3 categories)Problem - need 4 points [x]Acute/new problem with new plan for workup (4 points, 1 max) [] Acute/new problem without additional workup (3 points, 1 max) [] Unstable chronic problem actively being managed (2 point each, 2 max) [] Stable chronic problem actively being managed (1 point each, 2 max) [] Self-limited/transient process (constipation, muscle ache, etc) (1 point each, 2 max) Data - need 4 points [x] Reviewed labs/imaging studies (1 points, 2 max) [x] Independent review of imaging (EKG, xrays, etc) (2 points, 2 max) [x] Discussed case with consult/other MD/RN (2 points, 2 max) High Risk - qualify if have one of the following: [x] Severe exacerbation of acute problem, acute mental status change, IV narcotics, monitoring drug levels (vancomycin, INR, tacrolimus etc) I spent 38 minutes on this patient's case, and 23 mins was dedicated to counseling and/or care coordination. Discussed with nephro, Bedside RN Time of note may not reflect time of encounter Silvestre Cruz D.O. Mar 12, 2020 18:47
--- NOTE | 2020-03-12 19:29 | NUR ---
NURSE HAND-OFF: Important Events on Shift:Refused HD, refused BT Patient Status: Stable Diet:reg Pending Orders: n/a Pending Results/Labs:n/a Pending MD notification:n/a Latest Vital Signs: Temperature 97.9 , Pulse 103 , B/P 110 /75 , Respiratory Rate 18 , O2 SAT 96 , Nasal Cannula, O2 Flow Rate 2.0 . Vital Sign Comment: stable Latest Mcconnell Fall Score: 75 Fall Risk: High Risk Safety Measures: Call light Within Reach, Bed Alarm Zone 1, Side Rails Side Rails x3, Bed position Low and Locked. Fall Precautions: Yellow Socks Door Sign Patient Fall Education Report given to MARY Dietz.
--- NOTE | 2020-03-12 19:30 | NUR ---
NURSE NOTES: Patient received in bed, yelling that she has pain all over. Bilateral soft wrist restraints on, able to actively move extremities, no swelling, skin intact, pulses present. Will medicate as prescribed and continue with plan of care.
[2020-03-12 20:00] VITALS: BP 156/86
--- NOTE | 2020-03-12 20:17 | Neurology Progress Note ---
Interim History Interim History ROS Limited/Unobtainable: Yes Interim History remains confused, noted psych input Objective Physical Exam Last Vital Signs Date Time Temp Pulse Resp B/P (MAP) Pulse Ox O2 Delivery O2 Flow Rate FiO2 03/12/20 17:14 103 110/75 03/12/20 16:00 97.9 18 96 03/12/20 09:00 Room Air 03/11/20 00:20 93 03/04/20 06:00 2.0 Laboratory Tests Test 03/12/20 05:50 White Blood Count 6.7 K/UL (4.8-10.8) Red Blood Count 2.42 M/UL (4.20-5.40) L Hemoglobin 7.1 G/DL (12.0-16.0) L Hematocrit 24.0 % (37.0-47.0) L Mean Corpuscular Volume 99 FL (80-99) Mean Corpuscular Hemoglobin 29.2 PG (27.0-31.0) Mean Corpuscular Hemoglobin Concent 29.4 G/DL (32.0-36.0) L Red Cell Distribution Width 14.3 % (11.6-14.8) Platelet Count 143 K/UL (150-450) L Mean Platelet Volume 7.3 FL (6.5-10.1) Neutrophils (%) (Auto) % (45.0-75.0) Lymphocytes (%) (Auto) % (20.0-45.0) Monocytes (%) (Auto) % (1.0-10.0) Eosinophils (%) (Auto) % (0.0-3.0) Basophils (%) (Auto) % (0.0-2.0) Differential Total Cells Counted 100 Neutrophils % (Manual) 51 % (45-75) Lymphocytes % (Manual) 33 % (20-45) Monocytes % (Manual) 10 % (1-10) Eosinophils % (Manual) 6 % (0-3) H Basophils % (Manual) 0 % (0-2) Band Neutrophils 0 % (0-8) Platelet Estimate Decreased L Platelet Morphology Normal Hypochromasia 1+ Anisocytosis 1+ Sodium Level 137 MMOL/L (136-145) Potassium Level 5.1 MMOL/L (3.5-5.1) Chloride Level 103 MMOL/L (98-107) Carbon Dioxide Level 26 MMOL/L (21-32) Anion Gap 9 mmol/L (5-15) Blood Urea Nitrogen 68 mg/dL (7-18) H Creatinine 4.2 MG/DL (0.55-1.30) H Estimat Glomerular Filtration Rate 10.4 mL/min (>60) Glucose Level 75 MG/DL (74-106) Calcium Level 8.3 MG/DL (8.5-10.1) L Phosphorus Level 5.1 MG/DL (2.5-4.9) H Magnesium Level 1.9 MG/DL (1.8-2.4) Total Bilirubin 0.3 MG/DL (0.2-1.0) Aspartate Amino Transf (AST/SGOT) 21 U/L (15-37) Alanine Aminotransferase (ALT/SGPT) 16 U/L (12-78) Alkaline Phosphatase 113 U/L (46-116) Total Protein 6.8 G/DL (6.4-8.2) Albumin 2.6 G/DL (3.4-5.0) L Globulin 4.2 g/dL Albumin/Globulin Ratio 0.6 (1.0-2.7) L Head: normocophalic Neck: no rigidity EENT: benign Neurologic Exam Mental Status: awake, alert Cranial Nerve II: visual juarez Cranial Nerves III, IV, : PERRLA, EOMI Cranial Nerve V: normal facial sensations Objective ao x 2 flapping noted tangential non focal Impression/Recommendations Problems: (1) Anemia (2) UTI (urinary tract infection) (3) Hypertension (4) ESRF (end stage renal failure) (5) Noncompliance (6) Head injury, acute (7) Cocaine abuse (8) Acute exacerbation of CHF (congestive heart failure) (9) Pain syndrome, chronic (10) Elevated troponin I level (11) Abdominal discomfort (12) Abnormal LFTs Diagnostic Impression acute encephalopathy, likely uremic agitation tele seroquel 25 mg bid standing HD per nephro PT OT as able no opioids Hay Johnson MD Mar 12, 2020 20:17
--- NOTE | 2020-03-12 20:53 | Psychiatric Progress Note ---
Psychiatry Progress Note Psychiatry Progress Note Subjective the pt is stable Medications Current Medications Medications (Trade) Dose Ordered Sig/Sugey Route PRN Reason Start Time Stop Time Status Last Admin Dose Admin Acetaminophen (Tylenol) 650 mg Q6H PRN ORAL Mild Pain (Pain Scale 1-3) 02/25/20 03:30 03/26/20 03:29 03/02/20 10:17 Al Hydroxide/Mg Hydroxide (Mylanta II) 30 ml Q6H PRN ORAL Abdominal cramps 03/04/20 13:00 04/03/20 12:59 Aspirin (ASA) 81 mg DAILY ORAL 02/25/20 09:00 04/10/20 08:59 03/12/20 08:49 Benazepril HCl (Lotensin) 40 mg DAILY ORAL 03/01/20 09:00 03/31/20 08:59 03/12/20 10:39 Calcium Acetate (Phoslo) 667 mg TIAC ORAL 02/27/20 06:30 05/27/20 06:29 03/12/20 15:38 Diphenhydramine HCl (Benadryl) 50 mg Q6H PRN ORAL Itching 02/25/20 03:30 03/26/20 03:29 03/10/20 04:00 Epoetin Mychal (Epoetin Mychal(ESRD on dialysis)) 6,000 unit SUN-SUN-SUN SUBQ 03/08/20 21:00 06/06/20 20:59 03/11/20 02:26 Furosemide (Lasix) 60 mg BID IV 02/25/20 09:00 03/26/20 08:59 03/12/20 17:13 Heparin Sodium (Porcine) (Heparin 5000 units/ml) 5,000 units EVERY 8 HOURS SUBQ 02/25/20 06:00 04/10/20 05:59 03/12/20 13:47 Hydralazine HCl (Apresoline) 25 mg Q6H PRN ORAL SBP above 160 02/26/20 02:00 05/26/20 01:59 03/12/20 10:39 Hydralazine HCl (Apresoline) 100 mg Q8HR ORAL 03/01/20 14:00 05/27/20 13:59 03/12/20 13:47 Lorazepam (Ativan 2mg/ml 1ml) 0.5 mg Q4H PRN IV For Anxiety 03/09/20 16:30 03/16/20 16:29 03/10/20 23:12 Morphine Sulfate (Morphine Sulfate) 1 mg Q3H PRN IVP Severe Pain (Pain Scale 7-10) 03/09/20 16:19 03/16/20 16:18 03/12/20 19:37 Nifedipine (Procardia XL) 60 mg BID ORAL 03/07/20 18:00 04/01/20 08:59 03/12/20 17:14 Nitroglycerin (Nitro-Bid) 1 inch TID@0600,1200,1800 TOPIC 02/26/20 02:00 03/27/20 01:59 03/12/20 17:14 Quetiapine Fumarate (SEROqueL) 75 mg Q12HR ORAL 03/08/20 09:52 04/22/20 09:51 03/12/20 08:49 Neurological/Psychiatric: Reports: anxiety, depressed, emotional problems; Denies: no symptoms, headache, numbness, paresthesia, pre-existing deficit, seizure, tingling, tremors, weakness, other Allergies: Coded Allergies: SULFA (SULFONAMIDE ANTIBIOTICS) (Verified Allergy, Unknown, 02/24/20) Objective Data Height (Feet): 5 Height (Inches): 4.00 Weight (Pounds): 160 General Appearance: no apparent distress Additional Comments: MENTAL STATUS EXAMINATION: Patient is having waxing and waning consciousness. Mood is anxious. Affect is blunted, congruent with mood. Thought process is concrete. Thought content, no suicidal or homicidal ideation. Cognition is impaired. Insight and judgment is impaired. ASSESSMENT: Mid[place] I Acute metabolic encephalopathy. Dementia. [place] II Deferred. [place] III As above. Midland IV Low. [place]land V 20. PLAN: 1. We will start patient on Haldol p.r.n. 2. Bilateral soft restraints. London Mckeon MD Mar 12, 2020 20:53
[2020-03-12] MEDS: Epoetin Alfa-EPBX(ESRD on dialysis)3000 units/ml vial SUBQ SCH (20:54)
[2020-03-12] MEDS: LORazepam Inj 2mg/ml 1ml IV PRN (22:55)
[2020-03-13] VITALS (7 sets, daily range): BP systolic 137–168; BP diastolic 79–95
[2020-03-13] MEDS: Nitroglycerin 2% oint pkt TOPIC SCH ×3 (05:09→18:01)
[2020-03-13] MEDS: Morphine Sulfate 2mg/ml Inj(IV/IM USE ONLY) IVP PRN ×4 (05:09→23:29)
[2020-03-13] MEDS: Heparin 5000 units/ml inj SUBQ SCH ×3 (05:26→21:46)
[2020-03-13] MEDS: HydrALAZINE 50mg tab ORAL SCH ×3 (05:26→21:45)
--- NOTE | 2020-03-13 07:23 | NUR ---
NURSE HAND-OFF: Important Events on Shift:[restless for the first half of the shift, slept for at least 5 hours] Patient Status: [stable] Diet: [Regular] Pending Orders: [n/a] Pending Results/Labs:[n/a] Pending MD notification:[n/a] Latest Vital Signs: Temperature 98.5 , Pulse 105 , B/P 149 /80 , Respiratory Rate 18 , O2 SAT 96 , Nasal Cannula, O2 Flow Rate 2.0 . Vital Sign Comment: [] Latest Mcconnell Fall Score: 60 Fall Risk: High Risk Safety Measures: Call light Within Reach, Bed Alarm Zone 1, Side Rails Side Rails x3, Bed position Low and Locked. Fall Precautions: Yellow Socks Door Sign Patient Fall Education Report given to [HUGO VERDUZCO].
[2020-03-13 07:53] LABS: CALCIUM 8.6 MG/DL (8.5-10.1); CREATININE 4.6 MG/DL (0.55-1.30); PHOSPHORUS 5.9 MG/DL (2.5-4.9); POTASSIUM 4.8 MMOL/L (3.5-5.1)
--- NOTE | 2020-03-13 08:04 | NUR ---
RD ASSESSMENT & RECOMMENDATIONS SEE CARE ACTIVITY FOR COMPLETE ASSESSMENT DAILY ESTIMATED NEEDS: Needs based on ESRD w/ HD, 53kg 25-30 kcals/kg 8959-5552 total kcals 1.2-1.8 g protein/kg 64-95 g total protein Fluids per MD mL/kg total fluid mLs NUTRITION DIAGNOSIS: Increased kcal/prot needs R/T renal dysfunction as evidenced by s/p permacath placement (02/26), on HD. CURRENT DIET: Renal-> now Regular diet PO DIET RECOMMENDATIONS: RENAL/ texture per LABOR CUSTODIAN ADDITIONAL RECOMMENDATIONS: * Daily calibrated bedscale wt * Nephrovite x 1 * Monitor for continuity of HD- S/p HD permacath placement on 02/26 Refused last HD * Monitor lytes and renal fxn closely (phos elev, refused HD) * Diet change to RENAL diet
[2020-03-13 08:11] LABS: HEMATOCRIT 24.8 % (37.0-47.0); HEMOGLOBIN 7.2 G/DL (12.0-16.0); MEAN CORPUSCULAR VOLUME 101 FL (80-99); PLATELET COUNT 144 K/UL (150-450); RED BLOOD COUNT 2.46 M/UL (4.20-5.40); RED CELL DISTRIBUTION WIDTH 15.1 % (11.6-14.8); WHITE BLOOD COUNT 6.6 K/UL (4.8-10.8)
[2020-03-13] MEDS: Aspirin Baby 81mg ORAL SCH (08:25)
--- NOTE | 2020-03-13 08:35 | Nephrology Progress Note ---
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 #troponemia #CHF #h/o polysubtance abuse, cocaine abuser #HTN #anemia - next HD today--> refusing HD and blood transfusion today - monitor drainage around the catheter site - monitor hemoglobin level - pending outpatient HD placement - cardiology eval - 2D Echo: EF30%, severe pulm HTN with PAP 90mmHg, global and regional wall motion abnormalities - switch to nifedipine to 60mg BID - add benazopril 20mg daily - increase hydralazine 100 TID -continue epo - monitor electrolytes time spent 65 min Subjective ROS Limited/Unobtainable: Yes Subjective hemoglobin 7.1 refusing transfusion and HD today again hemoglobin stable agitated at times 2D Echo: EF30%, severe pulm HTN with PAP 90mmHg, global and regional wall motion abnormalities remains confused Objective Objective Last 24 Hour Vital Signs Date Time Temp Pulse Resp B/P (MAP) Pulse Ox O2 Delivery O2 Flow Rate FiO2 03/13/20 08:32 108 154/87 03/13/20 08:31 154/87 03/13/20 05:26 149/80 03/13/20 05:09 98.5 105 18 149/80 (103) 96 03/13/20 05:09 149/80 03/13/20 04:00 98.6 100 18 155/79 (104) 96 03/13/20 00:00 98.5 104 18 151/88 (109) 96 03/12/20 23:25 104 16 151/88 96 03/12/20 22:55 102 18 149/77 96 03/12/20 21:00 Room Air 03/12/20 20:54 156/86 03/12/20 20:00 98.6 102 18 156/86 (109) 96 03/12/20 17:14 103 110/75 03/12/20 17:14 110/75 03/12/20 16:00 97.9 103 18 110/75 (87) 96 03/12/20 13:47 141/77 03/12/20 12:00 97.6 96 18 141/77 (98) 94 03/12/20 11:57 141/77 03/12/20 10:41 104 166/89 03/12/20 10:39 166/89 1/1/21 10:39 166/89 03/12/20 09:00 Room Air Intake and Output 03/12/20 03/13/20 19:00 07:00 Intake Total 720 ml 500 ml Balance 720 ml 500 ml Intake Oral 720 ml 500 ml # Voids 4 4 Laboratory Tests 03/13/20 06:00: White Blood Count [Pending], Red Blood Count [Pending], Hemoglobin [Pending], Hematocrit [Pending], Mean Corpuscular Volume [Pending], Mean Corpuscular Hemoglobin [Pending], Mean Corpuscular Hemoglobin Concent [Pending], Red Cell Distribution Width [Pending], Platelet Count [Pending], Mean Platelet Volume [Pending], Neutrophils (%) (Auto) [Pending], Lymphocytes (%) (Auto) [Pending], Monocytes (%) (Auto) [Pending], Eosinophils (%) (Auto) [Pending], Basophils (%) (Auto) [Pending], Sodium Level 139, Potassium Level 4.8, Chloride Level 105, Carbon Dioxide Level 27, Anion Gap 7, Blood Urea Nitrogen 79H, Creatinine 4.6H, Estimat Glomerular Filtration Rate 9.3, Glucose Level 93, Calcium Level 8.6, Phosphorus Level 5.9H, Magnesium Level 2.0 Height (Feet): 5 Height (Inches): 4.00 Weight (Pounds): 160 Ace Munroe M.D. Mar 13, 2020 08:35
--- NOTE | 2020-03-13 09:00 | NUR ---
NURSE NOTES: [facility]ANE[facility] HD NURSE CONFIRMED FOR TODAY. HELD ANTIHYPERTENSIVE MEDS. WILL CONT TO MONITOR.
--- NOTE | 2020-03-13 10:32 | NUR ---
NURSE NOTES: RECEIVED PATIENT LYING IN BED, AWAKE, ALERT/ORIENTED X2-3, REALITY ORIENTATION PROVIDED DURING ASSESSMENT, NO SIGNS AND SYMPTOMS OF ACUTE CARDIO-RESPIRATORY DISTRESS/SHORTNESS OF BREATH, DENIES CHEST PAIN, NO PERIPHERAL EDEMA NOTED. PIV INTACT TO RIGHT UPPER ARM/GAUGE 22, NO REDNESS/SWELLING NOTED. BILATERAL SOFT WRIST RESTRAINT TO PREVENT PATIENT FROM SAFETY/PULLING MEDICAL DEVICES. ABDOMEN SOFT/NON DISTENDED/NON TENDER, ASSISTED TO BEDSIDE COMMODE. SIDERAILS UP X3/BED IN LOWEST POSITION FOR SAFETY, FREQUENT ROUNDING FOR SAFETY/NEEDS, CONTINUE WITH CURRENT PLAN OF CARE.
--- NOTE | 2020-03-13 11:37 | NUR ---
CASE MANAGEMENT: REVIEW 03/13/2020 SI:CHF EXACERBATION VS: T 98 HR 108 RR 20 B/P 154/87 SATS 98% ON RA LABS: HGB 7.2 HCT 24.8 BUN 79 CR 4.6 PHOS 5.9 IS:LASIX IV BID ASA PO QD LOTENSIN PO QD HYDRALAZINE PO Q8H PHOSLO PO TIAC MED/SURG
--- NOTE | 2020-03-13 11:45 | NUR ---
*-*DISCHARGE PLANNING*-* PLACED A CALL TO THE TRANSFER TABLE OPERATOR HELPERPATIENT CARE COORDINATOR PH:[phone], S/W SARABJIT, WHO STATED MARYJANE IS NOT AVAILABLE DURING THE WEEKEND , PLEASE FOLLOW UP ON SUNGILMER. Addendum: 03/15/20 at 1052 by MONTSE OLIVO CM *-*DISCHARGE PLANNING*-* PLACED A CALL TO THE TRANSFER TABLE OPERATOR HELPERPATIENT CARE COORDINATOR PH:[phone], S/W SARABJIT, WHO STATED AYDI IS NOT AVAILABLE DURING THE WEEKEND , PLEASE FOLLOW UP ON EDITA.
[2020-03-13] MEDS: LORazepam Inj 2mg/ml 1ml IV PRN (15:32)
--- NOTE | 2020-03-13 16:07 | Surgery Progress Note ---
Surgery Progress Note Subjective Additional Comments no acute events labs noted c/o wanting to go home Objective Last 24 Hour Vital Signs Date Time Temp Pulse Resp B/P (MAP) Pulse Ox O2 Delivery O2 Flow Rate FiO2 03/13/20 15:43 97.1 89 18 137/84 (101) 98 03/13/20 15:32 99 19 141/86 97 03/13/20 14:18 97.5 03/13/20 13:08 141/86 03/13/20 13:08 141/86 03/13/20 12:00 97.5 99 19 141/86 (104) 97 03/13/20 09:00 Room Air 03/13/20 08:32 108 154/87 03/13/20 08:31 154/87 03/13/20 08:00 98.0 108 20 154/87 (109) 98 03/13/20 05:26 149/80 03/13/20 05:09 98.5 105 18 149/80 (103) 96 03/13/20 05:09 149/80 03/13/20 04:00 98.6 100 18 155/79 (104) 96 03/13/20 00:00 98.5 104 18 151/88 (109) 96 03/12/20 23:25 104 16 151/88 96 03/12/20 22:55 102 18 149/77 96 03/12/20 21:00 Room Air 03/12/20 20:54 156/86 03/12/20 20:00 98.6 102 18 156/86 (109) 96 03/12/20 17:14 103 110/75 03/12/20 17:14 110/75 I&O Intake and Output 03/12/20 03/13/20 19:00 07:00 Intake Total 720 ml 500 ml Balance 720 ml 500 ml Intake Oral 720 ml 500 ml # Voids 4 4 Cardiovascular: RSR Respiratory: decreased breath sounds Abdomen: non-tender, present bowel sounds, non-distended Extremities: no tenderness, no cyanosis Laboratory Tests Test 03/13/20 06:00 White Blood Count 6.6 K/UL (4.8-10.8) Red Blood Count 2.46 M/UL (4.20-5.40) L Hemoglobin 7.2 G/DL (12.0-16.0) L Hematocrit 24.8 % (37.0-47.0) L Mean Corpuscular Volume 101 FL (80-99) H Mean Corpuscular Hemoglobin 29.1 PG (27.0-31.0) Mean Corpuscular Hemoglobin Concent 28.9 G/DL (32.0-36.0) L Red Cell Distribution Width 15.1 % (11.6-14.8) H Platelet Count 144 K/UL (150-450) L Mean Platelet Volume 6.9 FL (6.5-10.1) Neutrophils (%) (Auto) % (45.0-75.0) Lymphocytes (%) (Auto) % (20.0-45.0) Monocytes (%) (Auto) % (1.0-10.0) Eosinophils (%) (Auto) % (0.0-3.0) Basophils (%) (Auto) % (0.0-2.0) Differential Total Cells Counted 100 Neutrophils % (Manual) 70 % (45-75) Lymphocytes % (Manual) 21 % (20-45) Monocytes % (Manual) 4 % (1-10) Eosinophils % (Manual) 5 % (0-3) H Basophils % (Manual) 0 % (0-2) Band Neutrophils 0 % (0-8) Platelet Estimate Decreased L Platelet Morphology Normal Hypochromasia 2+ Anisocytosis 1+ Macrocytosis 1+ Sodium Level 139 MMOL/L (136-145) Potassium Level 4.8 MMOL/L (3.5-5.1) Chloride Level 105 MMOL/L (98-107) Carbon Dioxide Level 27 MMOL/L (21-32) Anion Gap 7 mmol/L (5-15) Blood Urea Nitrogen 79 mg/dL (7-18) H Creatinine 4.6 MG/DL (0.55-1.30) H Estimat Glomerular Filtration Rate 9.3 mL/min (>60) Glucose Level 93 MG/DL (74-106) Calcium Level 8.6 MG/DL (8.5-10.1) Phosphorus Level 5.9 MG/DL (2.5-4.9) H Magnesium Level 2.0 MG/DL (1.8-2.4) Plan Problems: (1) Abnormal LFTs Assessment & Plan: Patient identified to have elevated LFTs on admission. Complaints abdominal discomfort. No imaging currently performed. Abdominal ultrasound ordered. Trend labs IV fluids will monitor recommendations with evaluation of medications and serial abdominal exams. Exam is limited due to patient having limited ability to cooperate. Gallbladder demonstrates focal wall thickening and edema, gallbladder wall just over 4 mm thick. There is also small amount of pericholecystic fluid No gallstones. Sonographic Lewis's sign is negative. Common bile duct measures 5 mm in diameter. No intrahepatic biliary ductal dilatation. Liver demonstrates slightly increased echogenicity, no focal abnormality. Portal vein and hepatic veins are patent. Pancreas is unremarkable. Spleen is unremarkable. Left kidney measures 7.7 cm in length. Right kidney measures 8 cm length. Both kidneys demonstrate increased echogenicity There is no hydronephrosis. No focal abnormality . Abdominal aorta is partially obscured by bowel gas, visualized portions are non-aneurysmal . Right pleural effusion incidentally noted Impression: Somewhat limited exam, as described Increased renal echogenicity bilaterally, indicating medical renal disease. Incidental finding of bilateral renal cysts Mildly increased hepatic echogenicity, likely medical renal disease Negative for gallstones. There is focal gallbladder wall thickening and some pericholecystic fluid. This is probably due to edema of systemic causes but the possibility of acalculous acute cholecystitis should also be considered Right pleural effusion Note incompletely visualized distal abdominal aorta (2) Abdominal discomfort Assessment & Plan: No significant bowel distention. Discomfort on palpation asking for pain medications. No nausea vomiting fever chills. Okay for diet as tolerated we will follow with serial exams Thank allowing participation's care (3) Anemia (4) UTI (urinary tract infection) (5) Hypertension (6) ESRF (end stage renal failure) (7) Noncompliance (8) Head injury, acute (9) Cocaine abuse (10) Acute exacerbation of CHF (congestive heart failure) (11) Pain syndrome, chronic (12) Elevated troponin I level Blu Lema Mar 13, 2020 16:07
--- NOTE | 2020-03-13 19:03 | NUR ---
NURSE HAND-OFF: Important Events on Shift:[pain management; safety] Patient Status: [stable] Diet: [reg] Pending Orders: [hd] Pending Results/Labs:[today] Pending MD notification:[] Latest Vital Signs: Temperature 97.1 , Pulse 89 , B/P 137 /84 , Respiratory Rate 18 , O2 SAT 98 , Nasal Cannula, O2 Flow Rate 2.0 . Vital Sign Comment: [] Latest Mcconnell Fall Score: 60 Fall Risk: High Risk Safety Measures: Call light Within Reach, Bed Alarm Zone 1, Side Rails Side Rails x2, Bed position Low and Locked. Fall Precautions: Yellow Socks Door Sign Patient Fall Education Report given to [hemant].
--- NOTE | 2020-03-13 19:30 | NUR ---
NURSE NOTES: Received report & pt from LUBA Armenta. Pt in bed, a&ox2-3 & very forgetful. No s/s of acute distress & c/o 7/10 pain at this time. Will give pain med as ordered & pt verbalized understanding. Pt scheduled for dialysis tonight. Waiting for dialysis nurse & will f/u. Right upper chest permacath intact. IV site intact & S/L'd. B/L soft wrist restraints noted; circulation checked. Bed in lowest position, call light within reach. Will continue to monitor.
--- NOTE | 2020-03-13 19:46 | NUR ---
NURSE NOTES: Pt strongly refused dialysis despite explaining risks & benefits multiple times. RN & HD RN in the room & pt states, "Never ever!!" Dr. Munroe made aware. Also made aware by HD nurse David Hidalgo. Charge nurse made aware.
--- NOTE | 2020-03-13 20:33 | Neurology Progress Note ---
Interim History Interim History ROS Limited/Unobtainable: Yes Interim History remains confused and agitated Objective Physical Exam Last Vital Signs Date Time Temp Pulse Resp B/P (MAP) Pulse Ox O2 Delivery O2 Flow Rate FiO2 03/13/20 18:01 137/84 03/13/20 16:46 89 03/13/20 16:02 18 98 03/13/20 15:43 97.1 03/13/20 09:00 Room Air 03/11/20 00:20 93 Laboratory Tests Test 03/13/20 06:00 White Blood Count 6.6 K/UL (4.8-10.8) Red Blood Count 2.46 M/UL (4.20-5.40) L Hemoglobin 7.2 G/DL (12.0-16.0) L Hematocrit 24.8 % (37.0-47.0) L Mean Corpuscular Volume 101 FL (80-99) H Mean Corpuscular Hemoglobin 29.1 PG (27.0-31.0) Mean Corpuscular Hemoglobin Concent 28.9 G/DL (32.0-36.0) L Red Cell Distribution Width 15.1 % (11.6-14.8) H Platelet Count 144 K/UL (150-450) L Mean Platelet Volume 6.9 FL (6.5-10.1) Neutrophils (%) (Auto) % (45.0-75.0) Lymphocytes (%) (Auto) % (20.0-45.0) Monocytes (%) (Auto) % (1.0-10.0) Eosinophils (%) (Auto) % (0.0-3.0) Basophils (%) (Auto) % (0.0-2.0) Differential Total Cells Counted 100 Neutrophils % (Manual) 70 % (45-75) Lymphocytes % (Manual) 21 % (20-45) Monocytes % (Manual) 4 % (1-10) Eosinophils % (Manual) 5 % (0-3) H Basophils % (Manual) 0 % (0-2) Band Neutrophils 0 % (0-8) Platelet Estimate Decreased L Platelet Morphology Normal Hypochromasia 2+ Anisocytosis 1+ Macrocytosis 1+ Sodium Level 139 MMOL/L (136-145) Potassium Level 4.8 MMOL/L (3.5-5.1) Chloride Level 105 MMOL/L (98-107) Carbon Dioxide Level 27 MMOL/L (21-32) Anion Gap 7 mmol/L (5-15) Blood Urea Nitrogen 79 mg/dL (7-18) H Creatinine 4.6 MG/DL (0.55-1.30) H Estimat Glomerular Filtration Rate 9.3 mL/min (>60) Glucose Level 93 MG/DL (74-106) Calcium Level 8.6 MG/DL (8.5-10.1) Phosphorus Level 5.9 MG/DL (2.5-4.9) H Magnesium Level 2.0 MG/DL (1.8-2.4) Head: normocophalic Neck: no rigidity EENT: benign Neurologic Exam Mental Status: awake, alert Cranial Nerve II: visual juarez Cranial Nerves III, IV, : PERRLA, EOMI Cranial Nerve V: normal facial sensations Objective ao x 2 flapping noted tangential non focal Impression/Recommendations Problems: (1) Anemia (2) UTI (urinary tract infection) (3) Hypertension (4) ESRF (end stage renal failure) (5) Noncompliance (6) Head injury, acute (7) Cocaine abuse (8) Acute exacerbation of CHF (congestive heart failure) (9) Pain syndrome, chronic (10) Elevated troponin I level (11) Abdominal discomfort (12) Abnormal LFTs Diagnostic Impression acute encephalopathy, likely uremic agitation tele seroquel 25 mg bid standing HD per nephro PT OT as able no opioids Hay Johnson MD Mar 13, 2020 20:33
--- NOTE | 2020-03-13 20:57 | General Progress Note ---
Subjective Allergies: Coded Allergies: SULFA (SULFONAMIDE ANTIBIOTICS) (Verified Allergy, Unknown, 02/24/20) Subjective No acute events overnight per nursing. Patient continues to be confused, agitated. No insight into medical condition. Continues to refuse HD. Further subjective history unable to be obtained due to ALOC Review of systems: Unable to be obtained due to ALOC Objective Last 24 Hour Vital Signs Date Time Temp Pulse Resp B/P (MAP) Pulse Ox O2 Delivery O2 Flow Rate FiO2 03/13/20 18:01 137/84 03/13/20 16:46 89 137/84 03/13/20 16:02 89 18 137/84 98 03/13/20 15:43 97.1 89 18 137/84 (101) 98 03/13/20 15:32 99 19 141/86 97 03/13/20 14:18 97.5 03/13/20 13:08 141/86 03/13/20 13:08 141/86 03/13/20 12:00 97.5 99 19 141/86 (104) 97 03/13/20 09:00 Room Air 03/13/20 08:32 108 154/87 03/13/20 08:31 154/87 03/13/20 08:00 98.0 108 20 154/87 (109) 98 03/13/20 05:26 149/80 03/13/20 05:09 98.5 105 18 149/80 (103) 96 03/13/20 05:09 149/80 03/13/20 04:00 98.6 100 18 155/79 (104) 96 03/13/20 00:00 98.5 104 18 151/88 (109) 96 03/12/20 23:25 104 16 151/88 96 03/12/20 22:55 102 18 149/77 96 03/12/20 21:00 Room Air Intake and Output 03/12/20 03/13/20 19:00 07:00 Intake Total 720 ml 500 ml Balance 720 ml 500 ml Intake Oral 720 ml 500 ml # Voids 4 4 Laboratory Tests 03/13/20 06:00: White Blood Count 6.6, Red Blood Count 2.46L, Hemoglobin 7.2L, Hematocrit 24.8L, Mean Corpuscular Volume 101H, Mean Corpuscular Hemoglobin 29.1, Mean Corpuscular Hemoglobin Concent 28.9L, Red Cell Distribution Width 15.1H, Platelet Count 144L , Mean Platelet Volume 6.9, Neutrophils (%) (Auto) , Lymphocytes (%) (Auto) , Monocytes (%) (Auto) , Eosinophils (%) (Auto) , Basophils (%) (Auto) , Differential Total Cells Counted 100, Neutrophils % (Manual) 70, Lymphocytes % (Manual) 21, Monocytes % (Manual) 4, Eosinophils % (Manual) 5H, Basophils % (Manual) 0, Band Neutrophils 0, Platelet Estimate DecreasedL, Platelet Morphology Normal, Hypochromasia 2+, Anisocytosis 1+, Macrocytosis 1+, Sodium Level 139, Potassium Level 4.8, Chloride Level 105, Carbon Dioxide Level 27, Anion Gap 7, Blood Urea Nitrogen 79H, Creatinine 4.6H, Estimat Glomerular Filtration Rate 9.3, Glucose Level 93, Calcium Level 8.6, Phosphorus Level 5.9H, Magnesium Level 2.0 Height (Feet): 5 Height (Inches): 4.00 Weight (Pounds): 160 Objective General: WDWN female in NAD, Altered. A&O x 2. Awake and alert. In restraints HEENT: Normocephalic cephalic atraumatic, pupils equal round reactive to light and accommodation, nares patent and no symmetrical, no tonsillar exudates, mucous membranes moist CV: Regular rate regular rhythm, no murmurs, rubs, or gallops. HD line C/d/i. Pulm: Lungs clear to auscultation bilaterally. No wheezes, rhonchi, or rales GI: Soft, nontender, nondistended, bowel sounds present Neuro: CN 2-12 intact bilaterally, no focal signs. Moving all extremities Ext: No lower extremity edema bilaterally Skin: no rashes lesions or ulcers Msk: Joints symmetrical in upper extremity and lower extremity bilaterally, no joint swelling. Lymph: No lymphadenopathy in upper extremity and lower extremity Assessment/Plan Assessment/Plan: 74 yo F with PMHX CHF. CKD4, opioid abuser, chronic untraceable pain syndrome, admitted for CHF exacerbation and fluid overload, now on HD. #Hx of CKD V now ESRD s/p HD access #Rule out Line infection --> highly doubt, but cultures pending from HD line #Acute metabolic encephalopathy - Waxes and Wanes - Appreciate Nephro recommendations: Dr. Munroe -Currently Euvolemic - HD arrangements pending - patient currently refusing HD intermittently. Has no insight/understanding of medical condition. Appreciate Psych eval #Acute on Chronic Systolic CHF Exacerbation-Resolved # EF 20-25%. Global hypokinesis D/w Cardiology. Ischemia vs. history of cocaine use -Asa 81 -Benazepril PO -Appreciate cardiology recommendations #Acute blood loss anemia 2/2 tunneled cath line removal-Resolved S/P PRBC transfusion 02/26 with appropriate response - PRBC for hgb <7 #R/O Cholecystitis--> ruled out -Abdominal ultrasound: gallbladder thickening - > D/w Surgery. No suspicion for cholecystitis #hepatitis A positive - GI consulted: Dr. Figueroa #Urinary tract infection -S/P Rocephin Tx #Opioid abuse-Stable #H/o cocaine abuse-Stable - Social work consult FENPPX DVTPPX: HSQ Diet: renal Lines: tunneled line PT/OT: pending Code status: full per policy Dispo: SNF eventually Reason for Continued Hospitalization: ESRD, encephalopathy MIPS (Merit-based Incentive Payment System) Applicable CPT: 59806, 02959 CHECK ALL THAT ARE MET: [] Measure #5 (CHF): All ages. Prescribe BLACK/ARB upon discharge for patients with left ventricular systolic dysfunction. If not, the reason is clearly documented in the medical chart .[] Measure #8 (CHF): All ages. Prescribe a beta marlys upon discharge for patients with left ventricular systolic dysfunction. If not, the reason is clearly documented in the medical chart. [x] Measure #47: Advance care plan or surrogate decision maker documented in the medical record. [x] Measure #130 The provider has documented, updated, or reviewed the patients current medication list and has documented it in the patients note. [] Measure #374 (All): Send report to referring provider. [] Measure #407(Sepsis due to MSSA bacteremia): Age 18+ Patient treated with a beta-lactam antibiotic (Nafcillin, Oxacillin or Cefazolin) as definitive therapy. MEDICAL COMPLEXITYHigh complexity medical decision making (need 2/3 categories)Problem - need 4 points [x]Acute/new problem with new plan for workup (4 points, 1 max) [] Acute/new problem without additional workup (3 points, 1 max) [] Unstable chronic problem actively being managed (2 point each, 2 max) [] Stable chronic problem actively being managed (1 point each, 2 max) [] Self-limited/transient process (constipation, muscle ache, etc) (1 point each, 2 max) Data - need 4 points [x] Reviewed labs/imaging studies (1 points, 2 max) [x] Independent review of imaging (EKG, xrays, etc) (2 points, 2 max) [x] Discussed case with consult/other MD/RN (2 points, 2 max) High Risk - qualify if have one of the following: [x] Severe exacerbation of acute problem, acute mental status change, IV narcotics, monitoring drug levels (vancomycin, INR, tacrolimus etc) I spent 32 minutes on this patient's case, and 20 mins was dedicated to counseling and/or care coordination. Discussed with nephro, Bedside RN Time of note may not reflect time of encounter Silvestre Cruz D.O. Mar 13, 2020 20:57
[2020-03-14 00:24] VITALS: BP 175/94
[2020-03-14] MEDS: HydrALAZINE 50mg tab ORAL SCH ×4 (00:28→22:07)
[2020-03-14] MEDS: LORazepam Inj 2mg/ml 1ml IV PRN (00:29)
[2020-03-14] MEDS: HydrALAZINE 25mg tab ORAL PRN (00:29)
[2020-03-14 04:59] VITALS: BP 159/99
[2020-03-14] MEDS: Nitroglycerin 2% oint pkt TOPIC SCH ×3 (06:13→18:02)
[2020-03-14] MEDS: Heparin 5000 units/ml inj SUBQ SCH ×3 (06:14→22:08)
[2020-03-14] MEDS: Morphine Sulfate 2mg/ml Inj(IV/IM USE ONLY) IVP PRN ×4 (06:18→23:06)
--- NOTE | 2020-03-14 06:40 | NUR ---
NURSE HAND-OFF: Important Events on Shift:high blood pressure 150s-170s but asymptomatic. BP PRN given. Pain management. Patient Status: stable Diet: regular Pending Orders: Pending Results/Labs: Pending MD notification: Latest Vital Signs: Temperature 98.6 , Pulse 105 , B/P 159 /99 , Respiratory Rate 18 , O2 SAT 94 , Nasal Cannula, O2 Flow Rate 2.0 . Vital Sign Comment: Latest Mcconnell Fall Score: 60 Fall Risk: High Risk Safety Measures: Call light Within Reach, Bed Alarm Zone 1, Side Rails Side Rails x2, Bed position Low and Locked. Fall Precautions: Yellow Socks Door Sign Patient Fall Education Report given to MARY Hoffman.
[2020-03-14 07:51] LABS: BASOPHILS % (AUTO) 3.3 % (0.0-2.0); EOSINOPHILS % (AUTO) 9.3 % (0.0-3.0); HEMATOCRIT 27.2 % (37.0-47.0); HEMOGLOBIN 8.1 G/DL (12.0-16.0); LYMPHOCYTES % (AUTO) 22.1 % (20.0-45.0); MEAN CORPUSCULAR VOLUME 96 FL (80-99); NEUTROPHILS % (AUTO) 54.3 % (45.0-75.0); PLATELET COUNT 153 K/UL (150-450); RED BLOOD COUNT 2.85 M/UL (4.20-5.40); RED CELL DISTRIBUTION WIDTH 14.9 % (11.6-14.8); WHITE BLOOD COUNT 6.7 K/UL (4.8-10.8)
--- NOTE | 2020-03-14 08:00 | NUR ---
NURSE NOTES: Report received from Mary Beth RN, patient is awake, confuse, anxious, in bilateral wrists restraints. Patient refused to let nurse do physical assessment, no IV access visualized on patient. Bed locked at the lowest position possible, call light within easy reach, side rails up x2. Will continue to monitor patient and follow up with the plan of care.
[2020-03-14 08:01] LABS: CALCIUM 8.5 MG/DL (8.5-10.1); CREATININE 5.1 MG/DL (0.55-1.30); POTASSIUM 5.3 MMOL/L (3.5-5.1)
[2020-03-14] MEDS: Aspirin Baby 81mg ORAL SCH (08:19)
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
--- NOTE | 2020-03-14 10:30 | NUR ---
HAND-OFF: Report given to MARY Quinn.
--- NOTE | 2020-03-14 10:45 | NUR ---
NURSE NOTES: Pt lying in bed w/bed in lowest position and call light within reach. Pt A&Ox1-2, VSS, and in no apparent distress; pt restless and agitated and on b/l wrist restraints. IV site intact/asymptomatic & H/L'd and skin intact. Will continue to monitor.
[2020-03-14] MEDS ORDERED: Sodium Polystyrene Sulfonate 15gm Powder ORAL SCH (11:00)
--- NOTE | 2020-03-14 11:15 | NUR ---
pt refuse hd today,inform dr acuna.
[2020-03-14 12:00] VITALS: BP 151/83
--- NOTE | 2020-03-14 12:26 | Surgery Progress Note ---
Surgery Progress Note Subjective Additional Comments doing well tolerating diet no n/v labs noted micro reviewed Objective Last 24 Hour Vital Signs Date Time Temp Pulse Resp B/P (MAP) Pulse Ox O2 Delivery O2 Flow Rate FiO2 03/14/20 12:00 98.1 99 19 151/83 (105) 95 03/14/20 09:00 Room Air 03/14/20 08:20 159/99 03/14/20 08:19 105 159/99 03/14/20 06:13 159/99 03/14/20 06:13 159/99 03/14/20 04:59 98.6 105 18 159/99 (119) 94 03/14/20 00:29 112 18 175/94 94 03/14/20 00:29 175/94 03/14/20 00:24 98.6 112 18 175/94 (121) 94 03/13/20 21:45 168/95 03/13/20 21:00 Room Air 03/13/20 20:10 98.4 109 18 168/95 (119) 93 03/13/20 18:01 137/84 03/13/20 16:46 89 137/84 03/13/20 16:02 89 18 137/84 98 03/13/20 15:43 97.1 89 18 137/84 (101) 98 03/13/20 15:32 99 19 141/86 97 03/13/20 14:18 97.5 03/13/20 13:08 141/86 03/13/20 13:08 141/86 I&O Intake and Output 03/13/20 03/14/20 19:00 07:00 Intake Total 240 ml 240 ml Balance 240 ml 240 ml Intake Oral 240 ml 240 ml # Voids 3 4 Dressing: other Wound: other Drains: other Cardiovascular: RSR Respiratory: decreased breath sounds Abdomen: soft, non-tender, present bowel sounds, non-distended Extremities: no edema, no tenderness, no cyanosis Laboratory Tests Test 03/14/20 07:31 White Blood Count 6.7 K/UL (4.8-10.8) Red Blood Count 2.85 M/UL (4.20-5.40) L Hemoglobin 8.1 G/DL (12.0-16.0) L Hematocrit 27.2 % (37.0-47.0) L Mean Corpuscular Volume 96 FL (80-99) Mean Corpuscular Hemoglobin 28.6 PG (27.0-31.0) Mean Corpuscular Hemoglobin Concent 29.9 G/DL (32.0-36.0) L Red Cell Distribution Width 14.9 % (11.6-14.8) H Platelet Count 153 K/UL (150-450) Mean Platelet Volume 6.8 FL (6.5-10.1) Neutrophils (%) (Auto) 54.3 % (45.0-75.0) Lymphocytes (%) (Auto) 22.1 % (20.0-45.0) Monocytes (%) (Auto) 11.0 % (1.0-10.0) H Eosinophils (%) (Auto) 9.3 % (0.0-3.0) H Basophils (%) (Auto) 3.3 % (0.0-2.0) H Sodium Level 138 MMOL/L (136-145) Potassium Level 5.3 MMOL/L (3.5-5.1) H Chloride Level 105 MMOL/L (98-107) Carbon Dioxide Level 24 MMOL/L (21-32) Anion Gap 9 mmol/L (5-15) Blood Urea Nitrogen 95 mg/dL (7-18) H Creatinine 5.1 MG/DL (0.55-1.30) H Estimat Glomerular Filtration Rate 8.3 mL/min (>60) Glucose Level 79 MG/DL (74-106) Calcium Level 8.5 MG/DL (8.5-10.1) Plan Problems: (1) Abnormal LFTs Assessment & Plan: Patient identified to have elevated LFTs on admission. Complaints abdominal discomfort. No imaging currently performed. Abdominal ultrasound ordered. Trend labs IV fluids will monitor recommendations with evaluation of medications and serial abdominal exams. Exam is limited due to patient having limited ability to cooperate. Gallbladder demonstrates focal wall thickening and edema, gallbladder wall just over 4 mm thick. There is also small amount of pericholecystic fluid No gallstones. Sonographic Lewis's sign is negative. Common bile duct measures 5 mm in diameter. No intrahepatic biliary ductal dilatation. Liver demonstrates slightly increased echogenicity, no focal abnormality. Portal vein and hepatic veins are patent. Pancreas is unremarkable. Spleen is unremarkable. Left kidney measures 7.7 cm in length. Right kidney measures 8 cm length. Both kidneys demonstrate increased echogenicity There is no hydronephrosis. No focal abnormality . Abdominal ao rta is partially obscured by bowel gas, visualized portions are non-aneurysmal . Right pleural effusion incidentally noted Impression: Somewhat limited exam, as described Increased renal echogenicity bilaterally, indicating medical renal disease. Incidental finding of bilateral renal cysts Mildly increased hepatic echogenicity, likely medical renal disease Negative for gallstones. There is focal gallbladder wall thickening and some pericholecystic fluid. This is probably due to edema of systemic causes but the possibility of acalculous acute cholecystitis should also be considered Right pleural effusion Note incompletely visualized distal abdominal aorta (2) Abdominal discomfort Assessment & Plan: No significant bowel distention. Discomfort on palpation asking for pain medications. No nausea vomiting fever chills. Okay for diet as tolerated we will follow with serial exams Thank allowing participation's care (3) Anemia (4) UTI (urinary tract infection) (5) Hypertension (6) ESRF (end stage renal failure) (7) Noncompliance (8) Head injury, acute (9) Cocaine abuse (10) Acute exacerbation of CHF (congestive heart failure) (11) Pain syndrome, chronic (12) Elevated troponin I level Blu Lema Mar 14, 2020 12:26
[2020-03-14 16:00] VITALS: BP 141/89
--- NOTE | 2020-03-14 16:10 | Nephrology Progress Note ---
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 #troponemia #CHF #h/o polysubtance abuse, cocaine abuser #HTN #anemia - next HD today--> refusing HD and blood transfusion today - monitor drainage around the catheter site - monitor hemoglobin level - pending outpatient HD placement - cardiology eval - 2D Echo: EF30%, severe pulm HTN with PAP 90mmHg, global and regional wall motion abnormalities - switch to nifedipine to 60mg BID - add benazopril 20mg daily - increase hydralazine 100 TID -continue epo - monitor electrolytes time spent 65 min Subjective ROS Limited/Unobtainable: Yes Subjective hemoglobin 7.1 refusing transfusion and HD today again hemoglobin stable agitated at times 2D Echo: EF30%, severe pulm HTN with PAP 90mmHg, global and regional wall motion abnormalities remains confused Objective Objective Last 24 Hour Vital Signs Date Time Temp Pulse Resp B/P (MAP) Pulse Ox O2 Delivery O2 Flow Rate FiO2 03/14/20 12:00 98.1 99 19 151/83 (105) 95 03/14/20 09:00 Room Air 03/14/20 08:20 159/99 03/14/20 08:19 105 159/99 03/14/20 06:13 159/99 03/14/20 06:13 159/99 03/14/20 04:59 98.6 105 18 159/99 (119) 94 03/14/20 00:29 112 18 175/94 94 03/14/20 00:29 175/94 03/14/20 00:24 98.6 112 18 175/94 (121) 94 03/13/20 21:45 168/95 03/13/20 21:00 Room Air 03/13/20 20:10 98.4 109 18 168/95 (119) 93 03/13/20 18:01 137/84 03/13/20 16:46 89 137/84 Intake and Output 03/13/20 03/14/20 19:00 07:00 Intake Total 240 ml 240 ml Balance 240 ml 240 ml Intake Oral 240 ml 240 ml # Voids 3 4 Laboratory Tests 03/14/20 07:31: White Blood Count 6.7, Red Blood Count 2.85L, Hemoglobin 8.1L, Hematocrit 27.2L, Mean Corpuscular Volume 96, Mean Corpuscular Hemoglobin 28.6, Mean Corpuscular Hemoglobin Concent 29.9L, Red Cell Distribution Width 14.9H, Platelet Count 153, Mean Platelet Volume 6.8, Neutrophils (%) (Auto) 54.3, Lymphocytes (%) (Auto) 22.1, Monocytes (%) (Auto) 11.0H, Eosinophils (%) (Auto) 9.3H, Basophils (%) (Auto) 3.3H, Sodium Level 138, Potassium Level 5.3H, Chloride Level 105, Carbon Dioxide Level 24, Anion Gap 9, Blood Urea Nitrogen 95H, Creatinine 5.1H, Estimat Glomerular Filtration Rate 8.3, Glucose Level 79, Calcium Level 8.5 Height (Feet): 5 Height (Inches): 4.00 Weight (Pounds): 160 Ace Munroe M.D. Mar 14, 2020 16:10
--- NOTE | 2020-03-14 18:21 | General Progress Note ---
Subjective Allergies: Coded Allergies: SULFA (SULFONAMIDE ANTIBIOTICS) (Verified Allergy, Unknown, 02/24/20) Subjective No acute events overnight per nursing. Patient initially refusing HD but now agreeable. Further subjective history unable to be obtained due to ALOC Review of systems: Unable to be obtained due to ALOC Objective Last 24 Hour Vital Signs Date Time Temp Pulse Resp B/P (MAP) Pulse Ox O2 Delivery O2 Flow Rate FiO2 03/14/20 18:02 90 141/89 03/14/20 18:02 141/89 03/14/20 16:00 97.8 90 18 141/89 (106) 96 03/14/20 12:00 98.1 99 19 151/83 (105) 95 03/14/20 09:00 Room Air 03/14/20 08:20 159/99 03/14/20 08:19 105 159/99 03/14/20 06:13 159/99 03/14/20 06:13 159/99 03/14/20 04:59 98.6 105 18 159/99 (119) 94 03/14/20 00:29 112 18 175/94 94 03/14/20 00:29 175/94 03/14/20 00:24 98.6 112 18 175/94 (121) 94 03/13/20 21:45 168/95 03/13/20 21:00 Room Air 03/13/20 20:10 98.4 109 18 168/95 (119) 93 Intake and Output 03/13/20 03/14/20 19:00 07:00 Intake Total 240 ml 240 ml Balance 240 ml 240 ml Intake Oral 240 ml 240 ml # Voids 3 4 Laboratory Tests 03/14/20 07:31: White Blood Count 6.7, Red Blood Count 2.85L, Hemoglobin 8.1L, Hematocrit 27.2L, Mean Corpuscular Volume 96, Mean Corpuscular Hemoglobin 28.6, Mean Corpuscular Hemoglobin Concent 29.9L, Red Cell Distribution Width 14.9H, Platelet Count 153, Mean Platelet Volume 6.8, Neutrophils (%) (Auto) 54.3, Lymphocytes (%) (Auto) 22.1, Monocytes (%) (Auto) 11.0H, Eosinophils (%) (Auto) 9.3H, Basophils (%) (Auto) 3.3H, Sodium Level 138, Potassium Level 5.3H, Chloride Level 105, Carbon Dioxide Level 24, Anion Gap 9, Blood Urea Nitrogen 95H, Creatinine 5.1H, Estimat Glomerular Filtration Rate 8.3, Glucose Level 79, Calcium Level 8.5 Height (Feet): 5 Height (Inches): 4.00 Weight (Pounds): 160 Objective General: WDWN female in NAD, Altered. A&O x 2. Awake and alert. In restraints HEENT: Normocephalic cephalic atraumatic, pupils equal round reactive to light and accommodation, nares patent and no symmetrical, no tonsillar exudates, mucous membranes moist CV: Regular rate regular rhythm, no murmurs, rubs, or gallops. HD line C/d/i. Pulm: Lungs clear to auscultation bilaterally. No wheezes, rhonchi, or rales GI: Soft, nontender, nondistended, bowel sounds present Neuro: CN 2-12 intact bilaterally, no focal signs. Moving all extremities Ext: No lower extremity edema bilaterally Skin: no rashes lesions or ulcers Msk: Joints symmetrical in upper extremity and lower extremity bilaterally, no joint swelling. Lymph: No lymphadenopathy in upper extremity and lower extremity Assessment/Plan Assessment/Plan: 74 yo F with PMHX CHF. CKD4, opioid abuser, chronic untraceable pain syndrome, admitted for CHF exacerbation and fluid overload, now on HD. #Hx of CKD V now ESRD s/p HD access #Rule out Line infection --> highly doubt, but cultures pending from HD line #Acute metabolic encephalopathy - Waxes and Wanes - Appreciate Nephro recommendations: Dr. Munroe -Currently Euvolemic - HD arrangements pending - patient currently refusing HD intermittently. Has no insight/understanding of medical condition. Appreciate Psych eval #Acute on Chronic Systolic CHF Exacerbation-Resolved # EF 20-25%. Global hypokinesis D/w Cardiology. Ischemia vs. history of cocaine use -Asa 81 -Benazepril PO -Appreciate cardiology recommendations #Acute blood loss anemia 2/2 tunneled cath line removal-Resolved S/P PRBC transfusion 02/26 with appropriate response - PRBC for hgb <7 #R/O Cholecystitis--> ruled out -Abdominal ultrasound: gallbladder thickening - > D/w Surgery. No suspicion for cholecystitis #hepatitis A positive > IGm - GI consulted: Dr. Figueroa/Dr. Rose - contact precautions in place - CTM LFts - no acute intervention per GI #Urinary tract infection -S/P Rocephin Tx #Opioid abuse-Stable #H/o cocaine abuse-Stable - Social work consult FENPPX DVTPPX: HSQ Diet: renal Lines: tunneled line PT/OT: pending Code status: full per policy Dispo: SNF eventually Reason for Continued Hospitalization: ESRD, encephalopathy MIPS (Merit-based Incentive Payment System) Applicable CPT: 19516, 47519 CHECK ALL THAT ARE MET: [] Measure #5 (CHF): All ages. Prescribe BLACK/ARB upon discharge for patients with left ventricular systolic dysfunction. If not, the reason is clearly documented in the medical chart .[] Measure #8 (CHF): All ages. Prescribe a beta marlys upon discharge for patients with left ventricular systolic dysfunction. If not, the reason is clearly documented in the medical chart. [x] Measure #47: Advance care plan or surrogate decision maker documented in the medical record. [x] Measure #130 The provider has documented, updated, or reviewed the patients current medication list and has documented it in the patients note. [] Measure #374 (All): Send report to referring provider. [] Measure #407(Sepsis due to MSSA bacteremia): Age 18+ Patient treated with a beta-lactam antibiotic (Nafcillin, Oxacillin or Cefazolin) as definitive therapy. MEDICAL COMPLEXITYHigh complexity medical decision making (need 2/3 categories)Problem - need 4 points [x]Acute/new problem with new plan for workup (4 points, 1 max) [] Acute/new problem without additional workup (3 points, 1 max) [] Unstable chronic problem actively being managed (2 point each, 2 max) [] Stable chronic problem actively being managed (1 point each, 2 max) [] Self-limited/transient process (constipation, muscle ache, etc) (1 point each, 2 max) Data - need 4 points [x] Reviewed labs/imaging studies (1 points, 2 max) [x] Independent review of imaging (EKG, xrays, etc) (2 points, 2 max) [x] Discussed case with consult/other MD/RN (2 points, 2 max) High Risk - qualify if have one of the following: [x] Severe exacerbation of acute problem, acute mental status change, IV narcotics, monitoring drug levels (vancomycin, INR, tacrolimus etc) I spent 33 minutes on this patient's case, and 21 mins was dedicated to counseling and/or care coordination. Discussed with nephro, Bedside RN Time of note may not reflect time of encounter Silvestre Cruz D.O. Mar 14, 2020 18:21
--- NOTE | 2020-03-14 19:30 | NUR ---
NURSE NOTES: Receive a report from MARY Mathis.
--- NOTE | 2020-03-14 19:32 | NUR ---
NURSE HAND-OFF: Important Events on Shift: Pt refused HD again; administered Kayexalate for elevated potassium. Patient Status: Stable Diet: Regular Pending Orders: None Pending Results/Labs: None Pending MD notification: None Latest Vital Signs: Temperature 97.8 , Pulse 90 , B/P 141 /89 , Respiratory Rate 18 , O2 SAT 96 , Nasal Cannula, O2 Flow Rate 2.0 . Vital Sign Comment: Stable Latest Mcconnell Fall Score: 60 Fall Risk: High Risk Safety Measures: Call light Within Reach, Bed Alarm Zone 1, Side Rails Side Rails x2, Bed position Low and Locked. Fall Precautions: Yellow Socks Door Sign Patient Fall Education Report given to MARY Mars.
--- NOTE | 2020-03-14 19:45 | NUR ---
NURSE NOTES: Pt is awake and alert. No respiratory distress noted. Still noted generalized pain and request for pain medication. Will provide prn pain medication. Perma catheter is inserted state on RUC for HD. Dressing kept intact. On bilateral restraints for safety with bed alarm on. Provide fall precautions. Call light and BSC are close. Will continue to monitor.
[2020-03-14 20:00] VITALS: BP 137/77
--- NOTE | 2020-03-14 23:22 | Neurology Progress Note ---
Interim History Interim History ROS Limited/Unobtainable: Yes Interim History poor attention, somnolent, moves all 4 Objective Physical Exam Last Vital Signs Date Time Temp Pulse Resp B/P (MAP) Pulse Ox O2 Delivery O2 Flow Rate FiO2 03/14/20 22:07 137/77 03/14/20 20:00 99.0 91 18 97 03/14/20 09:00 Room Air 03/11/20 00:20 93 Laboratory Tests Test 03/14/20 07:31 White Blood Count 6.7 K/UL (4.8-10.8) Red Blood Count 2.85 M/UL (4.20-5.40) L Hemoglobin 8.1 G/DL (12.0-16.0) L Hematocrit 27.2 % (37.0-47.0) L Mean Corpuscular Volume 96 FL (80-99) Mean Corpuscular Hemoglobin 28.6 PG (27.0-31.0) Mean Corpuscular Hemoglobin Concent 29.9 G/DL (32.0-36.0) L Red Cell Distribution Width 14.9 % (11.6-14.8) H Platelet Count 153 K/UL (150-450) Mean Platelet Volume 6.8 FL (6.5-10.1) Neutrophils (%) (Auto) 54.3 % (45.0-75.0) Lymphocytes (%) (Auto) 22.1 % (20.0-45.0) Monocytes (%) (Auto) 11.0 % (1.0-10.0) H Eosinophils (%) (Auto) 9.3 % (0.0-3.0) H Basophils (%) (Auto) 3.3 % (0.0-2.0) H Sodium Level 138 MMOL/L (136-145) Potassium Level 5.3 MMOL/L (3.5-5.1) H Chloride Level 105 MMOL/L (98-107) Carbon Dioxide Level 24 MMOL/L (21-32) Anion Gap 9 mmol/L (5-15) Blood Urea Nitrogen 95 mg/dL (7-18) H Creatinine 5.1 MG/DL (0.55-1.30) H Estimat Glomerular Filtration Rate 8.3 mL/min (>60) Glucose Level 79 MG/DL (74-106) Calcium Level 8.5 MG/DL (8.5-10.1) Head: normocophalic Neck: no rigidity EENT: benign Neurologic Exam Mental Status: awake, alert Cranial Nerve II: visual juarez Cranial Nerves III, IV, : PERRLA, EOMI Cranial Nerve V: normal facial sensations Objective ao x 2 flapping noted tangential non focal Impression/Recommendations Problems: (1) Anemia (2) UTI (urinary tract infection) (3) Hypertension (4) ESRF (end stage renal failure) (5) Noncompliance (6) Head injury, acute (7) Cocaine abuse (8) Acute exacerbation of CHF (congestive heart failure) (9) Pain syndrome, chronic (10) Elevated troponin I level (11) Abdominal discomfort (12) Abnormal LFTs Diagnostic Impression acute encephalopathy, likely uremic agitation tele seroquel 25 mg bid standing HD per nephro PT OT as able no opioids Hay Johnson MD Mar 14, 2020 23:22
[2020-03-15] VITALS: BP 136/76
[2020-03-15] MEDS: Morphine Sulfate 2mg/ml Inj(IV/IM USE ONLY) IVP PRN ×6 (02:07→19:45)
[2020-03-15 06:00] VITALS: BP 151/83
[2020-03-15] MEDS: Nitroglycerin 2% oint pkt TOPIC SCH ×3 (06:14→17:13)
[2020-03-15] MEDS: HydrALAZINE 50mg tab ORAL SCH ×3 (06:14→21:07)
[2020-03-15] MEDS: Heparin 5000 units/ml inj SUBQ SCH ×3 (06:16→21:16)
--- NOTE | 2020-03-15 07:30 | NUR ---
NURSE HAND-OFF: Important Events on Shift: pain control x 4times. Using BSC multiple times- fall precautions all the times. Wanting to discharge. Patient Status: [] Diet: [regular diet] Pending Orders: [] Pending Results/Labs:[] Pending MD notification:[] Latest Vital Signs: Temperature 97.9 , Pulse 100 , B/P 151 /83 , Respiratory Rate 18 , O2 SAT 95 , Nasal Cannula, O2 Flow Rate 2.0 . Vital Sign Comment: [] Latest Mcconnell Fall Score: 70 Fall Risk: High Risk Safety Measures: Call light Within Reach, Bed Alarm Zone 1, Side Rails Side Rails x3, Bed position Low and Locked. Fall Precautions: Yellow Socks Door Sign Patient Fall Education Report given to MARY Shi.
--- NOTE | 2020-03-15 07:47 | NUR ---
NURSE NOTES: Received report from MARY Mars. Patient is observed to be awake, alert, and oriented x2. Seen lying in bed with HOB elevated. Currently on room air, no s/sx of SOB/Distress, no c/o any pain or discomfort. Patient on contact iso for (A) MRSA (N). IV site located on HAY 20 GAUGE line asymptomatic, inplace and intact. HD site located on Right upper chest. no s/sx of redness or infection. Patient refusing HD MD aware. Bed placed on lowest and locked, call light placed within reach and will continue to monitor for any changes in patient's condition.
[2020-03-15 08:00] VITALS: BP 162/87
[2020-03-15] MEDS: Aspirin Baby 81mg ORAL SCH (08:43)
[2020-03-15] MEDS: HydrALAZINE 25mg tab ORAL PRN (08:44)
--- NOTE | 2020-03-15 09:37 | NUR ---
NURSE NOTES: Documented seroquel 75mg as patient refused. Medication currently not available per pharmacy will await delivery for more stock.
[2020-03-15] MEDS ORDERED: Haloperidol 5mg/ml Inj IM SCH (09:45)
[2020-03-15] MEDS ORDERED: DiphenhydrAMINE 50mg/ml Inj IM SCH (09:45)
[2020-03-15 10:19] LABS: HEMATOCRIT 23.8 % (37.0-47.0); HEMOGLOBIN 7.4 G/DL (12.0-16.0); MEAN CORPUSCULAR VOLUME 95 FL (80-99); PLATELET COUNT 179 K/UL (150-450); RED BLOOD COUNT 2.51 M/UL (4.20-5.40); RED CELL DISTRIBUTION WIDTH 15.3 % (11.6-14.8); WHITE BLOOD COUNT 7.3 K/UL (4.8-10.8)
[2020-03-15 10:50] LABS: CALCIUM 8.1 MG/DL (8.5-10.1); PHOSPHORUS 6.6 MG/DL (2.5-4.9); POTASSIUM 4.6 MMOL/L (3.5-5.1)
--- NOTE | 2020-03-15 11:32 | NUR ---
DISCHARGE PLANNING CALL MADE TO [facility] [phone]. S/W ALESSANDRO, CONFIRMED AND PROVIDED ACCEPTING HD CENTER AND CHAIR TIME FOLLOWS [facility] [address] [facility] [phone] 3RD SHIFT ON - [phone] FIRST HD SCHEDULED ON 03/17/2019. PATIENT TO ARRIVE BY 1245 PM.
--- NOTE | 2020-03-15 11:44 | NUR ---
NURSE NOTES: Notified Dr Munroe of hgb 7.4, no new orders but to just continue monitoring patient.
--- NOTE | 2020-03-15 11:50 | NUR ---
DISCHARGE PLANNING S/W LESLY AT [facility] IN RE TO ACCEPTANCE AND BED ASSIGNMENT. REQUESTED UPDATED CLINICALS TO BE FAXED TO [phone]. WILL REVIEW AND FOLLOW UP WITH THIS CM IN RE TO BED.
[2020-03-15 12:00] VITALS: BP 160/80
--- NOTE | 2020-03-15 13:16 | Nephrology Progress Note ---
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 #troponemia #CHF #h/o polysubtance abuse, cocaine abuser #HTN #anemia - next HD today--> refusing HD and blood transfusion today - monitor drainage around the catheter site - monitor hemoglobin level - pending outpatient HD placement - cardiology eval - 2D Echo: EF30%, severe pulm HTN with PAP 90mmHg, global and regional wall motion abnormalities - switch to nifedipine to 60mg BID - add benazopril 20mg daily - increase hydralazine 100 TID -continue epo - monitor electrolytes time spent 65 min Subjective ROS Limited/Unobtainable: Yes Subjective hemoglobin 7.1 refusing transfusion and HD today again hemoglobin stable agitated at times 2D Echo: EF30%, severe pulm HTN with PAP 90mmHg, global and regional wall motion abnormalities remains confused Objective Objective Last 24 Hour Vital Signs Date Time Temp Pulse Resp B/P (MAP) Pulse Ox O2 Delivery O2 Flow Rate FiO2 03/15/20 12:00 98.2 89 21 160/80 (106) 94 03/15/20 11:54 160/80 03/15/20 09:00 Room Air 03/15/20 08:47 98 162/87 03/15/20 08:44 162/87 03/15/20 08:44 162/87 03/15/20 08:00 98.8 98 20 162/87 (112) 95 03/15/20 06:14 151/83 03/15/20 06:14 151/83 03/15/20 06:00 97.9 100 18 151/83 (105) 95 03/15/20 00:00 98.8 98 18 136/76 (96) 90 03/14/20 22:07 137/77 03/14/20 21:00 Room Air 03/14/20 20:00 99.0 91 18 137/77 (97) 97 03/14/20 18:02 90 141/89 03/14/20 18:02 141/89 03/14/20 16:00 97.8 90 18 141/89 (106) 96 Intake and Output 03/14/20 03/15/20 19:00 07:00 Intake Total 450 ml Balance 450 ml Intake Oral 450 ml # Voids 8 Laboratory Tests 03/15/20 09:30: White Blood Count 7.3, Red Blood Count 2.51L, Hemoglobin 7.4L, Hematocrit 23.8L, Mean Corpuscular Volume 95, Mean Corpuscular Hemoglobin 29.6, Mean Corpuscular Hemoglobin Concent 31.2L, Red Cell Distribution Width 15.3H, Platelet Count 179, Mean Platelet Volume 6.9, Neutrophils (%) (Auto) , Lymphocytes (%) (Auto) , Monocytes (%) (Auto) , Eosinophils (%) (Auto) , Basophils (%) (Auto) , Differential Total Cells Counted 100, Neutrophils % (Manual) 67, Lymphocytes % (Manual) 9L, Monocytes % (Manual) 12H, Eosinophils % (Manual) 6H, Basophils % (Manual) 1, Band Neutrophils 5, Platelet Estimate Adequate, Platelet Morphology Normal, Hypochromasia 1+, Anisocytosis 1+, Sodium Level 138, Potassium Level 4.6, Chloride Level 104, Carbon Dioxide Level 24, Anion Gap 10, Blood Urea Nitrogen 101H, Creatinine 5.0H, Estimat Glomerular Filtration Rate 8.5, Glucose Level 89, Calcium Level 8.1L, Phosphorus Level 6.6H, Magnesium Level 2.0 Height (Feet): 5 Height (Inches): 4.00 Weight (Pounds): 160 Ace Munroe M.D. Mar 15, 2020 13:16
--- NOTE | 2020-03-15 13:36 | Surgery Progress Note ---
Surgery Progress Note Subjective Additional Comments no acute events wants to go home Objective Last 24 Hour Vital Signs Date Time Temp Pulse Resp B/P (MAP) Pulse Ox O2 Delivery O2 Flow Rate FiO2 03/15/20 12:00 98.2 89 21 160/80 (106) 94 03/15/20 11:54 160/80 03/15/20 09:00 Room Air 03/15/20 08:47 98 162/87 03/15/20 08:44 162/87 03/15/20 08:44 162/87 03/15/20 08:00 98.8 98 20 162/87 (112) 95 03/15/20 06:14 151/83 03/15/20 06:14 151/83 03/15/20 06:00 97.9 100 18 151/83 (105) 95 03/15/20 00:00 98.8 98 18 136/76 (96) 90 03/14/20 22:07 137/77 03/14/20 21:00 Room Air 03/14/20 20:00 99.0 91 18 137/77 (97) 97 03/14/20 18:02 90 141/89 03/14/20 18:02 141/89 03/14/20 16:00 97.8 90 18 141/89 (106) 96 I&O Intake and Output 03/14/20 03/15/20 19:00 07:00 Intake Total 450 ml Balance 450 ml Intake Oral 450 ml # Voids 8 Dressing: saturated, other Wound: other Cardiovascular: RSR Respiratory: decreased breath sounds Abdomen: soft, non-tender, present bowel sounds, non-distended Extremities: no edema, no tenderness, no cyanosis Laboratory Tests Test 03/15/20 09:30 White Blood Count 7.3 K/UL (4.8-10.8) Red Blood Count 2.51 M/UL (4.20-5.40) L Hemoglobin 7.4 G/DL (12.0-16.0) L Hematocrit 23.8 % (37.0-47.0) L Mean Corpuscular Volume 95 FL (80-99) Mean Corpuscular Hemoglobin 29.6 PG (27.0-31.0) Mean Corpuscular Hemoglobin Concent 31.2 G/DL (32.0-36.0) L Red Cell Distribution Width 15.3 % (11.6-14.8) H Platelet Count 179 K/UL (150-450) Mean Platelet Volume 6.9 FL (6.5-10.1) Neutrophils (%) (Auto) % (45.0-75.0) Lymphocytes (%) (Auto) % (20.0-45.0) Monocytes (%) (Auto) % (1.0-10.0) Eosinophils (%) (Auto) % (0.0-3.0) Basophils (%) (Auto) % (0.0-2.0) Differential Total Cells Counted 100 Neutrophils % (Manual) 67 % (45-75) Lymphocytes % (Manual) 9 % (20-45) L Monocytes % (Manual) 12 % (1-10) H Eosinophils % (Manual) 6 % (0-3) H Basophils % (Manual) 1 % (0-2) Band Neutrophils 5 % (0-8) Platelet Estimate Adequate Platelet Morphology Normal Hypochromasia 1+ Anisocytosis 1+ Sodium Level 138 MMOL/L (136-145) Potassium Level 4.6 MMOL/L (3.5-5.1) Chloride Level 104 MMOL/L (98-107) Carbon Dioxide Level 24 MMOL/L (21-32) Anion Gap 10 mmol/L (5-15) Blood Urea Nitrogen 101 mg/dL (7-18) H Creatinine 5.0 MG/DL (0.55-1.30) H Estimat Glomerular Filtration Rate 8.5 mL/min (>60) Glucose Level 89 MG/DL (74-106) Calcium Level 8.1 MG/DL (8.5-10.1) L Phosphorus Level 6.6 MG/DL (2.5-4.9) H Magnesium Level 2.0 MG/DL (1.8-2.4) Plan Problems: (1) Abnormal LFTs Assessment & Plan: Patient identified to have elevated LFTs on admission. Complaints abdominal discomfort. No imaging currently performed. Abdominal ultrasound ordered. Trend labs IV fluids will monitor recommendations with evaluation of medications and serial abdominal exams. Exam is limited due to patient having limited ability to cooperate. Gallbladder demonstrates focal wall thickening and edema, gallbladder wall just over 4 mm thick. There is also small amount of pericholecystic fluid No gallstones. Sonographic Lewis's sign is negative. Common bile duct measures 5 mm in diameter. No intrahepatic biliary ductal dilatation. Liver demonstrates slightly increased echogenicity, no focal abnormality. Portal vein and hepatic veins are patent. Pancreas is unremarkable. Spleen is unremarkable. Left kidney measures 7.7 cm in length. Right kidney measures 8 cm length. Both kidneys demonstrate increased echogenicity There is no hydronephrosis. No focal abnormality . Abdominal aorta is partially obscured by bowel gas, visualized portions are non-aneurysmal . Right pleural effusion incidentally noted Impression: Somewhat limited exam, as described Increased renal echogenicity bilaterally, indicating medical renal disease. Incidental finding of bilateral renal cysts Mildly increased hepatic echogenicity, likely medical renal disease Negative for gallstones. There is focal gallbladder wall thickening and some pericholecystic fluid. This is probably due to edema of systemic causes but the possibility of acalculous acute cholecystitis should also be considered Right pleural effusion Note incompletely visualized distal abdominal aorta (2) Abdominal discomfort Assessment & Plan: No significant bowel distention. Discomfort on palpation asking for pain medications. No nausea vomiting fever chills. Okay for diet as tolerated we will follow with serial exams Thank allowing participation's care improving no complaints just wants to go home (3) Anemia (4) UTI (urinary tract infection) (5) Hypertension (6) ESRF (end stage renal failure) (7) Noncompliance (8) Head injury, acute (9) Cocaine abuse (10) Acute exacerbation of CHF (congestive heart failure) (11) Pain syndrome, chronic (12) Elevated troponin I level Blu Lema Mar 15, 2020 13:36
--- NOTE | 2020-03-15 14:17 | NUR ---
CASE MANAGEMENT:REVIEW SI;CHF EXACERBATION. ESRD. 99.0 112 21 168/87 90% ON RA H/H 7.4/23.8 BUN 101 CR 5.0 PHOS 6.6 IS;HALDOL IM ONCE SEROQUEL PO Q12 MORPHINE SULFATE IV Q3 PRN HYDRALAZINE PO Q8 LOTENSIN PO QD NITRO-BID ASHLYN TID ASA PO QD HEPARIN SQ Q12 MED SURG STATUS DCP;PATIENT IS FROM HOME PLAN; SNF PLACEMENT OUTPATIENT HD
--- NOTE | 2020-03-15 14:41 | NUR ---
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 PER LESLY, ROOM CHANGES CURRENTLY TAKING PLACE D//T COVID. LESLY WILL F/U WITH CM IN RE TO BED ASSIGNMENT. Addendum: 03/15/20 at 1557 by MARIOLA HARGROVE LVN CM F/U CALL MADE TO [facility] POST [facility]UTE. Remigio/Kalin GRACE WHO STATED THAT SHE IS UNABLE TO ACCEPT PATIENT AT THIS TIME D/T RECENT COVID OUTBREAK.
--- NOTE | 2020-03-15 15:57 | NUR ---
DISCHARGE PLANNING PATIENT HAS BEEN REFERRED TO [facility] P [phone] F [phone] Addendum: 03/15/20 at 1636 by MARIOLA HARGROVE LVN S/W ANABELLE AT [facility]. PATIENT ACCEPTED TO ADMIT TO ROOM 37-A SKILLED FOR NURSE REPORT CALL [phone] [facility] RN SKOOG OPERATOR MESSAGE LEFT FOR DR RAY IN RE TO DC. AWAITING CALL BACK.
[2020-03-15 16:00] VITALS: BP 159/71
--- NOTE | 2020-03-15 16:09 | General Progress Note ---
Subjective Date patient seen: Mar 15, 2020 Allergies: Coded Allergies: SULFA (SULFONAMIDE ANTIBIOTICS) (Verified Allergy, Unknown, 02/24/20) Subjective No acute events overnight per nursing. Patient in better mood today. Feels well. Asking when she will be discharged. Explained placement pending. Further subjective history unable to be obtained due to ALOC Review of systems: Unable to be obtained due to ALOC Objective Last 24 Hour Vital Signs Date Time Temp Pulse Resp B/P (MAP) Pulse Ox O2 Delivery O2 Flow Rate FiO2 03/15/20 13:58 160/80 03/15/20 12:00 98.2 89 21 160/80 (106) 94 03/15/20 11:54 160/80 03/15/20 09:00 Room Air 03/15/20 08:47 98 162/87 03/15/20 08:44 162/87 03/15/20 08:44 162/87 03/15/20 08:00 98.8 98 20 162/87 (112) 95 03/15/20 06:14 151/83 03/15/20 06:14 151/83 03/15/20 06:00 97.9 100 18 151/83 (105) 95 03/15/20 00:00 98.8 98 18 136/76 (96) 90 03/14/20 22:07 137/77 03/14/20 21:00 Room Air 03/14/20 20:00 99.0 91 18 137/77 (97) 97 03/14/20 18:02 90 141/89 03/14/20 18:02 141/89 Intake and Output 03/14/20 03/15/20 19:00 07:00 Intake Total 450 ml Balance 450 ml Intake Oral 450 ml # Voids 8 Laboratory Tests 03/15/20 09:30: White Blood Count 7.3, Red Blood Count 2.51L, Hemoglobin 7.4L, Hematocrit 23.8L, Mean Corpuscular Volume 95, Mean Corpuscular Hemoglobin 29.6, Mean Corpuscular Hemoglobin Concent 31.2L, Red Cell Distribution Width 15.3H, Platelet Count 179, Mean Platelet Volume 6.9, Neutrophils (%) (Auto) , Lymphocytes (%) (Auto) , Monocytes (%) (Auto) , Eosinophils (%) (Auto) , Basophils (%) (Auto) , Differential Total Cells Counted 100, Neutrophils % (Manual) 67, Lymphocytes % (Manual) 9L, Monocytes % (Manual) 12H, Eosinophils % (Manual) 6H, Basophils % (Manual) 1, Band Neutrophils 5, Platelet Estimate Adequate, Platelet Morphology Normal, Hypochromasia 1+, Anisocytosis 1+, Sodium Level 138, Potassium Level 4.6, Chloride Level 104, Carbon Dioxide Level 24, Anion Gap 10, Blood Urea Nitrogen 101H, Creatinine 5.0H, Estimat Glomerular Filtration Rate 8.5, Glucose Level 89, Calcium Level 8.1L, Phosphorus Level 6.6H, Magnesium Level 2.0 Height (Feet): 5 Height (Inches): 4.00 Weight (Pounds): 160 Objective General: WDWN female in NAD, Altered. A&O x 2. Awake and alert. In restraints, loosely HEENT: Normocephalic cephalic atraumatic, pupils equal round reactive to light and accommodation, nares patent and no symmetrical, no tonsillar exudates, mucous membranes moist CV: Regular rate regular rhythm, no murmurs, rubs, or gallops. HD line C/d/i. Pulm: Lungs clear to auscultation bilaterally. No wheezes, rhonchi, or rales GI: Soft, nontender, nondistended, bowel sounds present Neuro: CN 2-12 intact bilaterally, no focal signs. Moving all extremities Ext: No lower extremity edema bilaterally Skin: no rashes lesions or ulcers Msk: Joints symmetrical in upper extremity and lower extremity bilaterally, no joint swelling. Lymph: No lymphadenopathy in upper extremity and lower extremity Assessment/Plan Assessment/Plan: 74 yo F with PMHX CHF. CKD4, opioid abuser, chronic untraceable pain syndrome, admitted for CHF exacerbation and fluid overload, now on HD. #Hx of CKD V now ESRD s/p HD access #Rule out Line infection --> highly doubt, but cultures pending from HD line #Acute metabolic encephalopathy - Waxes and Wanes - Appreciate Nephro recommendations: Dr. Munroe -Currently Euvolemic - HD arrangements pending - patient currently refusing HD intermittently. Has no insight/understanding of medical condition. Appreciate Psych eval #Acute on Chronic Systolic CHF Exacerbation-Resolved # EF 20-25%. Global hypokinesis D/w Cardiology. Ischemia vs. history of cocaine use -Asa 81 -Benazepril PO -Appreciate cardiology recommendations #Acute blood loss anemia 2/2 tunneled cath line removal-Resolved S/P PRBC transfusion 02/26 with appropriate response - PRBC for hgb <7 #R/O Cholecystitis--> ruled out -Abdominal ultrasound: gallbladder thickening - > D/w Surgery. No suspicion for cholecystitis #hepatitis A positive > IGm - GI consulted: Dr. Figueroa/Dr. Rose - contact precautions in place - CTM LFts - no acute intervention per GI #Urinary tract infection -S/P Rocephin Tx #Opioid abuse-Stable #H/o cocaine abuse-Stable - Social work consult FENPPX DVTPPX: HSQ Diet: renal Lines: tunneled line PT/OT: pending Code status: full per policy Dispo: SNF eventually Reason for Continued Hospitalization: ESRD, encephalopathy MIPS (Merit-based Incentive Payment System) Applicable CPT: 48590, 16062 CHECK ALL THAT ARE MET: [] Measure #5 (CHF): All ages. Prescribe BLACK/ARB upon discharge for patients with left ventricular systolic dysfunction. If not, the reason is clearly documented in the medical chart .[] Measure #8 (CHF): All ages. Prescribe a beta marlys upon discharge for patients with left ventricular systolic dysfunction. If not, the reason is clearly documented in the medical chart. [x] Measure #47: Advance care plan or surrogate decision maker documented in the medical record. [x] Measure #130 The provider has documented, updated, or reviewed the [facility] current medication list and has documented it in the patients note. [] Measure #374 (All): Send report to referring provider. [] Measure #407(Sepsis due to MSSA bacteremia): Age 18+ Patient treated with a beta-lactam antibiotic (Nafcillin, Oxacillin or Cefazolin) as definitive therapy. MEDICAL COMPLEXITYHigh complexity medical decision making (need 2/3 categories)Problem - need 4 points [x]Acute/new problem with new plan for workup (4 points, 1 max) [] Acute/new problem without additional workup (3 points, 1 max) [] Unstable chronic problem actively being managed (2 point each, 2 max) [] Stable chronic problem actively being managed (1 point each, 2 max) [] Self-limited/transient process (constipation, muscle ache, etc) (1 point each, 2 max) Data - need 4 points [x] Reviewed labs/imaging studies (1 points, 2 max) [x] Independent review of imaging (EKG, xrays, etc) (2 points, 2 max) [x] Discussed case with consult/other MD/RN (2 points, 2 max) High Risk - qualify if have one of the following: [x] Severe exacerbation of acute problem, acute mental status change, IV narcotics, monitoring drug levels (vancomycin, INR, tacrolimus etc) I spent 29 minutes on this patient's case, and 20 mins was dedicated to counseling and/or care coordination. Discussed with nephro, Bedside RN Time of note may not reflect time of encounter Silvestre Cruz D.O. Mar 15, 2020 16:09
[2020-03-15] MEDS: LORazepam Inj 2mg/ml 1ml IV PRN (18:13)
--- NOTE | 2020-03-15 19:10 | NUR ---
NURSE HAND-OFF: Important Events on Shift:DC Planning Patient Status: stable Diet: reg Pending Orders: n/a Pending Results/Labs:n/a Pending MD notification:n/a Latest Vital Signs: Temperature 96.8 , Pulse 85 , B/P 150 /69 , Respiratory Rate 20 , O2 SAT 95 , Nasal Cannula, O2 Flow Rate 2.0 . Vital Sign Comment: stable Latest Mcconnell Fall Score: 70 Fall Risk: High Risk Safety Measures: Call light Within Reach, Bed Alarm Zone 1, Side Rails Side Rails x3, Bed position Low and Locked. Fall Precautions: Yellow Socks Door Sign Patient Fall Education Report given to MARY Thrasher.
--- NOTE | 2020-03-15 19:25 | NUR ---
NURSE NOTES: The patient is alert and oriented x3, has confusion and agitations also noted. A calm environment was provided as indicated.The patient has a Bilateral soft wrist restraint for safety reason. She is on room air with Resp even and unlabored. The patient has a right upper arm 20g saline log, that is intact and asymptomatic.The patient also has a Right upper chest PermCath for dialysis.The bed in low level and locked. call light within easy reach. will continue to monitor as indicated
--- NOTE | 2020-03-15 19:31 | Psychiatric Progress Note ---
Psychiatry Progress Note Psychiatry Progress Note Subjective the pt is agitated yelling Medications Current Medications Medications (Trade) Dose Ordered Sig/Sugey Route PRN Reason Start Time Stop Time Status Last Admin Dose Admin Acetaminophen (Tylenol) 650 mg Q6H PRN ORAL Mild Pain (Pain Scale 1-3) 02/25/20 03:30 03/26/20 03:29 03/02/20 10:17 Al Hydroxide/Mg Hydroxide (Mylanta II) 30 ml Q6H PRN ORAL Abdominal cramps 03/04/20 13:00 04/03/20 12:59 Aspirin (ASA) 81 mg DAILY ORAL 02/25/20 09:00 04/10/20 08:59 03/15/20 08:43 Benazepril HCl (Lotensin) 40 mg DAILY ORAL 03/01/20 09:00 03/31/20 08:59 03/15/20 08:44 Calcium Acetate (Phoslo) 667 mg TIAC ORAL 02/27/20 06:30 05/27/20 06:29 03/15/20 15:42 Diphenhydramine HCl (Benadryl) 50 mg Q6H PRN ORAL Itching 02/25/20 03:30 03/26/20 03:29 03/14/20 06:18 Epoetin Mychal (Epoetin Mychal(ESRD on dialysis)) 6,000 unit SUN-SUN-SUN SUBQ 03/08/20 21:00 06/06/20 20:59 03/12/20 20:54 Furosemide (Lasix) 60 mg BID IV 02/25/20 09:00 03/26/20 08:59 03/15/20 17:12 Heparin Sodium (Porcine) (Heparin 5000 units/ml) 5,000 units EVERY 8 HOURS SUBQ 02/25/20 06:00 04/10/20 05:59 03/15/20 13:59 Hydralazine HCl (Apresoline) 25 mg Q6H PRN ORAL SBP above 160 02/26/20 02:00 05/26/20 01:59 03/15/20 08:44 Hydralazine HCl (Apresoline) 100 mg Q8HR ORAL 03/01/20 14:00 05/27/20 13:59 03/15/20 13:58 Lorazepam (Ativan 2mg/ml 1ml) 0.5 mg Q4H PRN IV For Anxiety 03/15/20 16:08 03/22/20 16:07 03/15/20 18:13 Morphine Sulfate (Morphine Sulfate) 1 mg Q3H PRN IVP Severe Pain (Pain Scale 7-10) 03/15/20 16:08 03/22/20 16:07 Nifedipine (Procardia XL) 60 mg BID ORAL 03/07/20 18:00 04/01/20 08:59 03/15/20 17:13 Nitroglycerin (Nitro-Bid) 1 inch TID@0600,1200,1800 TOPIC 02/26/20 02:00 03/27/20 01:59 03/15/20 17:13 Quetiapine Fumarate (SEROqueL) 75 mg Q12HR ORAL 03/15/20 09:00 04/29/20 08:59 Sevelamer Carbonate (Renvela) 800 mg THREE TIMES A DAY ORAL 03/15/20 18:00 06/13/20 17:59 03/15/20 17:12 Neurological/Psychiatric: Reports: anxiety, depressed, emotional problems; Denies: no symptoms, headache, numbness, paresthesia, pre-existing deficit, seizure, tingling, tremors, weakness, other Allergies: Coded Allergies: SULFA (SULFONAMIDE ANTIBIOTICS) (Verified Allergy, Unknown, 02/24/20) Objective Data Height (Feet): 5 Height (Inches): 4.00 Weight (Pounds): 160 General Appearance: alert, confused, agitated Additional Comments: MENTAL STATUS EXAMINATION: Patient is having waxing and waning consciousness. Mood is anxious. Affect is blunted, congruent with mood. Thought process is concrete. Thought content, no suicidal or homicidal ideation. Cognition is impaired. Insight and judgment is impaired. ASSESSMENT: White I Acute metabolic encephalopathy. Dementia. White II Deferred. White III As above. White IV Low. White V 20. PLAN: 1. We will start patient on Haldol p.r.n. 2. Bilateral soft restraints. London Mckeon MD Mar 15, 2020 19:31
--- NOTE | 2020-03-15 19:45 | NUR ---
NURSE NOTES: The patient is alert , has agitations and restlessness and a calm environment was provided was provided as indicated.The Resp is even and unlabored and she is on room air.She has a Bilateral soft wrist restraint for safety reasons.The bed in low level and call light within reach.
[2020-03-15 20:00] VITALS: BP 138/81
[2020-03-15] MEDS: Epoetin Alfa-EPBX(ESRD on dialysis)3000 units/ml vial SUBQ SCH (21:07)
--- NOTE | 2020-03-15 23:01 | Neurology Progress Note ---
Interim History Interim History ROS Limited/Unobtainable: Yes Interim History no new deficits poor recall Objective Physical Exam Last Vital Signs Date Time Temp Pulse Resp B/P (MAP) Pulse Ox O2 Delivery O2 Flow Rate FiO2 03/15/20 21:07 138/81 03/15/20 21:00 Room Air 03/15/20 20:00 98.2 102 18 95 03/11/20 00:20 93 Laboratory Tests Test 03/15/20 09:30 White Blood Count 7.3 K/UL (4.8-10.8) Red Blood Count 2.51 M/UL (4.20-5.40) L Hemoglobin 7.4 G/DL (12.0-16.0) L Hematocrit 23.8 % (37.0-47.0) L Mean Corpuscular Volume 95 FL (80-99) Mean Corpuscular Hemoglobin 29.6 PG (27.0-31.0) Mean Corpuscular Hemoglobin Concent 31.2 G/DL (32.0-36.0) L Red Cell Distribution Width 15.3 % (11.6-14.8) H Platelet Count 179 K/UL (150-450) Mean Platelet Volume 6.9 FL (6.5-10.1) Neutrophils (%) (Auto) % (45.0-75.0) Lymphocytes (%) (Auto) % (20.0-45.0) Monocytes (%) (Auto) % (1.0-10.0) Eosinophils (%) (Auto) % (0.0-3.0) Basophils (%) (Auto) % (0.0-2.0) Differential Total Cells Counted 100 Neutrophils % (Manual) 67 % (45-75) Lymphocytes % (Manual) 9 % (20-45) L Monocytes % (Manual) 12 % (1-10) H Eosinophils % (Manual) 6 % (0-3) H Basophils % (Manual) 1 % (0-2) Band Neutrophils 5 % (0-8) Platelet Estimate Adequate Platelet Morphology Normal Hypochromasia 1+ Anisocytosis 1+ Sodium Level 138 MMOL/L (136-145) Potassium Level 4.6 MMOL/L (3.5-5.1) Chloride Level 104 MMOL/L (98-107) Carbon Dioxide Level 24 MMOL/L (21-32) Anion Gap 10 mmol/L (5-15) Blood Urea Nitrogen 101 mg/dL (7-18) H Creatinine 5.0 MG/DL (0.55-1.30) H Estimat Glomerular Filtration Rate 8.5 mL/min (>60) Glucose Level 89 MG/DL (74-106) Calcium Level 8.1 MG/DL (8.5-10.1) L Phosphorus Level 6.6 MG/DL (2.5-4.9) H Magnesium Level 2.0 MG/DL (1.8-2.4) Head: normocophalic Neck: no rigidity EENT: benign Neurologic Exam Mental Status: awake, alert Cranial Nerve II: visual juarez Cranial Nerves III, IV, : PERRLA, EOMI Cranial Nerve V: normal facial sensations Objective ao x 2 flapping noted tangential non focal Impression/Recommendations Problems: (1) Anemia (2) UTI (urinary tract infection) (3) Hypertension (4) ESRF (end stage renal failure) (5) Noncompliance (6) Head injury, acute (7) Cocaine abuse (8) Acute exacerbation of CHF (congestive heart failure) (9) Pain syndrome, chronic (10) Elevated troponin I level (11) Abdominal discomfort (12) Abnormal LFTs Diagnostic Impression acute encephalopathy, likely uremic agitation tele seroquel 25 mg bid standing HD per nephro PT OT as able no opioids Hay Johnson MD Mar 15, 2020 23:01
[2020-03-16] VITALS (7 sets, daily range): BP systolic 130–158; BP diastolic 74–97
[2020-03-16] MEDS: LORazepam Inj 2mg/ml 1ml IV PRN (00:45)
--- NOTE | 2020-03-16 02:45 | Cardiology Progress Note ---
Subjective DATE OF SERVICE: Mar 15, 2020 No new complaints; remains agitated at times Awaiting SNF and dialysis unit acceptance. BP parameters remain stable over past 24 hrs. Continues with HD/UF per renal - refused session today. 2D Echo: EF 30%, severe pulm HTN with PAP 90mmHg, global and regional wall motion abnormalities Objective Last 24 Hour Vital Signs Date Time Temp Pulse Resp B/P (MAP) Pulse Ox O2 Delivery O2 Flow Rate FiO2 03/16/20 00:00 97.6 87 19 145/74 (97) 95 03/15/20 21:07 138/81 03/15/20 21:00 Room Air 03/15/20 20:00 98.2 102 18 138/81 (100) 95 03/15/20 18:43 85 20 150/69 95 03/15/20 18:13 87 20 159/71 95 03/15/20 17:13 87 159/71 03/15/20 17:13 159/71 03/15/20 16:00 96.8 87 20 159/71 (100) 95 03/15/20 13:58 160/80 03/15/20 12:00 98.2 89 21 160/80 (106) 94 03/15/20 11:54 160/80 03/15/20 09:00 Room Air 03/15/20 08:47 98 162/87 03/15/20 08:44 162/87 03/15/20 08:44 162/87 03/15/20 08:00 98.8 98 20 162/87 (112) 95 03/15/20 06:14 151/83 03/15/20 06:14 151/83 03/15/20 06:00 97.9 100 18 151/83 (105) 95 ROS: unchanged from my assessment of 02/25/20 HEENT: normal ENT inspection RHYTHM: NSR, ST LUNGS: diminished breath sounds, rales bilaterally - few, other - Right chest wall cath site with no active bleeding CARDIAC: normal rate, regular rhythm, normal S1 and S2, systolic murmur - 2/6 systolic murmur at LLSB, gallop/S4 ABDOMEN: normal bowel sounds, non tender, soft, no organomegaly EXTREMITIES: normal range of motion, non-tender, +1 edema Laboratory Tests Test 03/15/20 09:30 White Blood Count 7.3 K/UL (4.8-10.8) Red Blood Count 2.51 M/UL (4.20-5.40) L Hemoglobin 7.4 G/DL (12.0-16.0) L Hematocrit 23.8 % (37.0-47.0) L Mean Corpuscular Volume 95 FL (80-99) Mean Corpuscular Hemoglobin 29.6 PG (27.0-31.0) Mean Corpuscular Hemoglobin Concent 31.2 G/DL (32.0-36.0) L Red Cell Distribution Width 15.3 % (11.6-14.8) H Platelet Count 179 K/UL (150-450) Mean Platelet Volume 6.9 FL (6.5-10.1) Neutrophils (%) (Auto) % (45.0-75.0) Lymphocytes (%) (Auto) % (20.0-45.0) Monocytes (%) (Auto) % (1.0-10.0) Eosinophils (%) (Auto) % (0.0-3.0) Basophils (%) (Auto) % (0.0-2.0) Differential Total Cells Counted 100 Neutrophils % (Manual) 67 % (45-75) Lymphocytes % (Manual) 9 % (20-45) L Monocytes % (Manual) 12 % (1-10) H Eosinophils % (Manual) 6 % (0-3) H Basophils % (Manual) 1 % (0-2) Band Neutrophils 5 % (0-8) Platelet Estimate Adequate Platelet Morphology Normal Hypochromasia 1+ Anisocytosis 1+ Sodium Level 138 MMOL/L (136-145) Potassium Level 4.6 MMOL/L (3.5-5.1) Chloride Level 104 MMOL/L (98-107) Carbon Dioxide Level 24 MMOL/L (21-32) Anion Gap 10 mmol/L (5-15) Blood Urea Nitrogen 101 mg/dL (7-18) H Creatinine 5.0 MG/DL (0.55-1.30) H Estimat Glomerular Filtration Rate 8.5 mL/min (>60) Glucose Level 89 MG/DL (74-106) Calcium Level 8.1 MG/DL (8.5-10.1) L Phosphorus Level 6.6 MG/DL (2.5-4.9) H Magnesium Level 2.0 MG/DL (1.8-2.4) Assessment/Plan Assessment/Plan Metabolic encephalopathy ESRD Acute myocardial ischemia/possible NSTE myocardial infarction Ischemic and cocaine cardiomyopathy Severe pulmonary hypertension Acute on chronic systolic CHF Hypertensive urgency resolved Anemia of CKD Hypomagnesemia HD/UF per renal - reattempt tomorrow PRBC tx if agrees; otherwise EPO/Fe++ Anti-plt therapy Maximizing antiHTN and anti-failure regimen; use prn meds for now rare BP spikes. Magnesium replacement as needed Sourav Montejo MD Mar 16, 2020 02:45
[2020-03-16] MEDS: Morphine Sulfate 2mg/ml Inj(IV/IM USE ONLY) IVP PRN ×3 (03:42→21:12)
[2020-03-16] MEDS: HydrALAZINE 50mg tab ORAL SCH ×3 (06:04→21:11)
[2020-03-16] MEDS: Nitroglycerin 2% oint pkt TOPIC SCH ×3 (06:05→18:29)
[2020-03-16] MEDS: Heparin 5000 units/ml inj SUBQ SCH ×3 (06:14→21:11)
--- NOTE | 2020-03-16 07:11 | NUR ---
NURSE HAND-OFF: Important Events on Shift:Anxiety and agitations noted the entire night. Patient Status: Diet: Pending Orders: Pending Results/Labs: Pending MD notification: Latest Vital Signs: Temperature 97.8 , Pulse 84 , B/P 154 /84 , Respiratory Rate 20 , O2 SAT 94 , Nasal Cannula, O2 Flow Rate 2.0 . Vital Sign Comment: Latest Mcconnell Fall Score: 70 Fall Risk: High Risk Safety Measures: Call light Within Reach, Bed Alarm Zone 1, Side Rails Side Rails x3, Bed position Low and Locked. Fall Precautions: Yellow Socks Door Sign Patient Fall Education Report given to .
[2020-03-16 07:44] LABS: CALCIUM 8.5 MG/DL (8.5-10.1); CREATININE 5.2 MG/DL (0.55-1.30); PHOSPHORUS 6.7 MG/DL (2.5-4.9); POTASSIUM 4.2 MMOL/L (3.5-5.1)
--- NOTE | 2020-03-16 07:59 | NUR ---
NURSE NOTES: Received report from Price RN. Patient is awake and oriented x2-3, agitated and screaming. On soft wrist restraints per order, restraints loose enough that patient is able to reach tray and eat breakfast. Right upper chest perm a cath in place with clean, dry, intact dressing. Patient is fall risk, side rails upx3, bed low and locked, bed alarm armed. D/c pending bed placement at [facility]. Will continue plan of care.
[2020-03-16] MEDS: Aspirin Baby 81mg ORAL SCH (09:15)
--- NOTE | 2020-03-16 09:31 | NUR ---
*-*DISCHARGE PLANNING*-* PATIENT HAS BEEN ACCEPTED WILL BE DISCHARGED TO: [facility] P: [phone] ROOM# 109.B ~~~~~PATIENT WILL BE DISCHARGED WHEN COVID RESULT COMES BACK NEGATIVE WITH IN THE LAST 48HOURS.~~~~
--- NOTE | 2020-03-16 10:51 | NUR ---
NURSE NOTES: Patient slipped out of restraints and self removed her IV, attempted to get OOB. Patient placed back in bed in restraints. Bed alarm on.
[2020-03-16] MEDS ORDERED: Haloperidol 5mg/ml Inj IM SCH (13:30)
[2020-03-16] MEDS ORDERED: DiphenhydrAMINE 50mg/ml Inj IM SCH (13:30)
--- NOTE | 2020-03-16 14:07 | Nephrology Progress Note ---
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 #troponemia #CHF #h/o polysubtance abuse, cocaine abuser #HTN #anemia - next HD today--> refusing HD and blood transfusion today - monitor drainage around the catheter site - monitor hemoglobin level - pending outpatient HD placement - cardiology eval - 2D Echo: EF30%, severe pulm HTN with PAP 90mmHg, global and regional wall motion abnormalities - switch to nifedipine to 60mg BID - add benazopril 20mg daily - increase hydralazine 100 TID -continue epo - monitor electrolytes time spent 65 min Subjective ROS Limited/Unobtainable: Yes Subjective hemoglobin 7.1 refusing transfusion and HD today again hemoglobin stable agitated at times 2D Echo: EF30%, severe pulm HTN with PAP 90mmHg, global and regional wall motion abnormalities remains confused Objective Objective Last 24 Hour Vital Signs Date Time Temp Pulse Resp B/P (MAP) Pulse Ox O2 Delivery O2 Flow Rate FiO2 03/16/20 12:31 157/97 03/16/20 09:16 104 158/76 03/16/20 09:14 158/76 03/16/20 09:00 Room Air 03/16/20 08:00 98.9 104 20 158/76 (103) 94 03/16/20 06:05 154/84 03/16/20 06:04 154/84 03/16/20 04:00 97.8 84 20 154/86 (108) 94 03/16/20 00:00 97.6 87 19 145/74 (97) 95 03/15/20 21:07 138/81 03/15/20 21:00 Room Air 03/15/20 20:00 98.2 102 18 138/81 (100) 95 03/15/20 18:43 85 20 150/69 95 03/15/20 18:13 87 20 159/71 95 03/15/20 17:13 87 159/71 03/15/20 17:13 159/71 03/15/20 16:00 96.8 87 20 159/71 (100) 95 Intake and Output 03/15/20 03/16/20 19:00 07:00 Intake Total 140 ml 130 ml Output Total 1400 ml 640 ml Balance -1260 ml -510 ml Intake Oral 140 ml 130 ml Output Urine Total 1400 ml 640 ml # Voids 3 3 Laboratory Tests 03/16/20 06:19: Sodium Level 134L, Potassium Level 4.2, Chloride Level 99, Carbon Dioxide Level 24, Anion Gap 11, Blood Urea Nitrogen 100H, Creatinine 5.2H, Estimat Glomerular Filtration Rate 8.1, Glucose Level 101, Calcium Level 8.5, Phosphorus Level 6.7H , Magnesium Level 2.0 Height (Feet): 5 Height (Inches): 4.00 Weight (Pounds): 160 Ace Munroe M.D. Mar 16, 2020 14:07
--- NOTE | 2020-03-16 15:07 | Surgery Progress Note ---
Surgery Progress Note Subjective Additional Comments no acute events Objective Last 24 Hour Vital Signs Date Time Temp Pulse Resp B/P (MAP) Pulse Ox O2 Delivery O2 Flow Rate FiO2 03/16/20 12:31 157/97 03/16/20 09:16 104 158/76 03/16/20 09:14 158/76 03/16/20 09:00 Room Air 03/16/20 08:00 98.9 104 20 158/76 (103) 94 03/16/20 06:05 154/84 03/16/20 06:04 154/84 03/16/20 04:00 97.8 84 20 154/86 (108) 94 03/16/20 00:00 97.6 87 19 145/74 (97) 95 03/15/20 21:07 138/81 03/15/20 21:00 Room Air 03/15/20 20:00 98.2 102 18 138/81 (100) 95 03/15/20 18:43 85 20 150/69 95 03/15/20 18:13 87 20 159/71 95 03/15/20 17:13 87 159/71 03/15/20 17:13 159/71 03/15/20 16:00 96.8 87 20 159/71 (100) 95 I&O Intake and Output 03/15/20 03/16/20 18:59 06:59 Intake Total 140 ml 130 ml Output Total 1400 ml 640 ml Balance -1260 ml -510 ml Intake Oral 140 ml 130 ml Output Urine Total 1400 ml 640 ml # Voids 3 3 Dressing: dry Wound: clean Cardiovascular: RSR Respiratory: clear Abdomen: soft, non-tender, present bowel sounds, non-distended Extremities: no tenderness, no cyanosis Laboratory Tests Test 03/16/20 06:19 Sodium Level 134 MMOL/L (136-145) L Potassium Level 4.2 MMOL/L (3.5-5.1) Chloride Level 99 MMOL/L (98-107) Carbon Dioxide Level 24 MMOL/L (21-32) Anion Gap 11 mmol/L (5-15) Blood Urea Nitrogen 100 mg/dL (7-18) H Creatinine 5.2 MG/DL (0.55-1.30) H Estimat Glomerular Filtration Rate 8.1 mL/min (>60) Glucose Level 101 MG/DL (74-106) Calcium Level 8.5 MG/DL (8.5-10.1) Phosphorus Level 6.7 MG/DL (2.5-4.9) H Magnesium Level 2.0 MG/DL (1.8-2.4) Plan Problems: (1) Abnormal LFTs Assessment & Plan: Patient identified to have elevated LFTs on admission. Complaints abdominal discomfort. No imaging currently performed. Abdominal ultrasound ordered. Trend labs IV fluids will monitor recommendations with evaluation of medications and serial abdominal exams. Exam is limited due to patient having limited ability to cooperate. Gallbladder demonstrates focal wall thickening and edema, gallbladder wall just over 4 mm thick. There is also small amount of pericholecystic fluid No gallstones. Sonographic Lewis's sign is negative. Common bile duct measures 5 mm in diameter. No intrahepatic biliary ductal dilatation. Liver demonstrates slightly increased echogenicity, no focal abnormality. Portal vein and hepatic veins are patent. Pancreas is unremarkable. Spleen is unremarkable. Left kidney measures 7.7 cm in length. Right kidney measures 8 cm length. Both kidneys demonstrate increased echogenicity There is no hydronephrosis. No focal abnormality . Abdominal aorta is partially obscured by bowel gas, visualized portions are non-aneurysmal . Right pleural effusion incidentally noted Impression: Somewhat limited exam, as described Increased renal echogenicity bilaterally, indicating medical renal disease. Incidental finding of bilateral renal cysts Mildly increased hepatic echogenicity, likely medical renal disease Negative for gallstones. There is focal gallbladder wall thickening and some pericholecystic fluid. This is probably due to edema of systemic causes but the possibility of acalculous acute cholecystitis should also be considered Right pleural effusion Note incompletely visualized distal abdominal aorta (2) Abdominal discomfort Assessment & Plan: No significant bowel distention. Discomfort on palpation asking for pain medications. No nausea vomiting fever chills. Okay for diet as tolerated we will follow with serial exams Thank allowing participation's care improving no complaints just wants to go home (3) Anemia (4) UTI (urinary tract infection) (5) Hypertension (6) ESRF (end stage renal failure) (7) Noncompliance (8) Head injury, acute (9) Cocaine abuse (10) Acute exacerbation of CHF (congestive heart failure) (11) Pain syndrome, chronic (12) Elevated troponin I level Blu Lema Mar 16, 2020 15:07
--- NOTE | 2020-03-16 15:52 | NUR ---
*-*DISCHARGE PLANNED*-* PATIENT HAS BEEN ACCEPTED AND WILL BE DISCHARGED TO: [facility] P: [phone] FOR NURSE TO NURSE REPORT ROOM# 126.B [facility] TRANSP[facility] SET FOR WILL CALL, NURSE WILL ACTIVATE TRANSPORTATION AFTER DIALYSIS.
--- NOTE | 2020-03-16 16:25 | NUR ---
COURT CLERK NOTE S/W LESLY AT [facility]. INFORMED LESLY THAT TRANSPORTATION TO AND FROM HD FOR 03/17 AND 03/19 HAVE BEEN SCHEDULED WITH CALL THE CAR BY [facility]. INFORMED THAT SNF WILL NEED TO COORDINATE TRANSPORTATION FOR PATIENT THEREAFTER. AGREED WITH PLAN FOR HD TRANSPORTATION. LESLY ALSO INFORMED THAT PATIENT WILL HAVE HD PRIOR TO DC TODAY.
--- NOTE | 2020-03-16 16:50 | NUR ---
NURSE NOTES: Gave report to Sal at [facility].
--- NOTE | 2020-03-16 17:56 | General Progress Note ---
Subjective Date patient seen: Mar 16, 2020 Allergies: Coded Allergies: SULFA (SULFONAMIDE ANTIBIOTICS) (Verified Allergy, Unknown, 02/24/20) Subjective No acute events overnight per nursing. Patient in worse mood today. Not cooperative with interview or exam. Further subjective history unable to be obtained due to ALOC Review of systems: Unable to be obtained due to ALOC Objective Last 24 Hour Vital Signs Date Time Temp Pulse Resp B/P (MAP) Pulse Ox O2 Delivery O2 Flow Rate FiO2 03/16/20 16:00 97.7 102 20 130/82 (98) 94 03/16/20 12:31 157/97 03/16/20 12:00 98.2 117 20 157/97 (117) 94 03/16/20 09:16 104 158/76 03/16/20 09:14 158/76 03/16/20 09:00 Room Air 03/16/20 08:00 98.9 104 20 158/76 (103) 94 03/16/20 06:05 154/84 03/16/20 06:04 154/84 03/16/20 04:00 97.8 84 20 154/86 (108) 94 03/16/20 00:00 97.6 87 19 145/74 (97) 95 03/15/20 21:07 138/81 03/15/20 21:00 Room Air 03/15/20 20:00 98.2 102 18 138/81 (100) 95 03/15/20 18:43 85 20 150/69 95 03/15/20 18:13 87 20 159/71 95 Intake and Output 03/15/20 03/16/20 19:00 07:00 Intake Total 140 ml 130 ml Output Total 1400 ml 640 ml Balance -1260 ml -510 ml Intake Oral 140 ml 130 ml Output Urine Total 1400 ml 640 ml # Voids 3 3 Laboratory Tests 03/16/20 06:19: Sodium Level 134L, Potassium Level 4.2, Chloride Level 99, Carbon Dioxide Level 24, Anion Gap 11, Blood Urea Nitrogen 100H, Creatinine 5.2H, Estimat Glomerular Filtration Rate 8.1, Glucose Level 101, Calcium Level 8.5, Phosphorus Level 6.7H , Magnesium Level 2.0 Height (Feet): 5 Height (Inches): 4.00 Weight (Pounds): 160 Objective General: WDWN female in NAD, Altered. Resting, awake, confused, uncooperative HEENT: Normocephalic cephalic atraumatic, pupils equal round reactive to light and accommodation, nares patent and no symmetrical, no tonsillar exudates, mucous membranes moist CV: Regular rate regular rhythm, no murmurs, rubs, or gallops. HD line C/d/i. Pulm: Lungs clear to auscultation bilaterally. No wheezes, rhonchi, or rales GI: Soft, nontender, nondistended, bowel sounds present Neuro: CN 2-12 intact bilaterally, no focal signs. Moving all extremities Ext: No lower extremity edema bilaterally Skin: no rashes lesions or ulcers Msk: Joints symmetrical in upper extremity and lower extremity bilaterally, no joint swelling. Lymph: No lymphadenopathy in upper extremity and lower extremity Assessment/Plan Assessment/Plan: 74 yo F with PMHX CHF. CKD4, opioid abuser, chronic untraceable pain syndrome, admitted for CHF exacerbation and fluid overload, now on HD. #Hx of CKD V now ESRD s/p HD access #Rule out Line infection --> highly doubt, but cultures pending from HD line #Acute metabolic encephalopathy - Waxes and Wanes - Appreciate Nephro recommendations: Dr. Munroe -Currently Euvolemic - HD arrangements finalized - patient currently refusing HD intermittently. Has no insight/understanding of medical condition. Appreciate Psych eval #Acute on Chronic Systolic CHF Exacerbation-Resolved # EF 20-25%. Global hypokinesis D/w Cardiology. Ischemia vs. history of cocaine use -Asa 81 -Benazepril PO -Appreciate cardiology recommendations #Acute blood loss anemia 2/2 tunneled cath line removal-Resolved S/P PRBC transfusion 02/26 with appropriate response - PRBC for hgb <7 #R/O Cholecystitis--> ruled out -Abdominal ultrasound: gallbladder thickening - > D/w Surgery. No suspicion for cholecystitis #hepatitis A positive > IGm - GI consulted: Dr. Figueroa/Dr. Rose - contact precautions in place - CTM LFts - no acute intervention per GI #Urinary tract infection -S/P Rocephin Tx #Opioid abuse-Stable #H/o cocaine abuse-Stable - Social work consult FENPPX DVTPPX: HSQ Diet: renal Lines: tunneled line PT/OT: pending Code status: full per policy Dispo: SNF today Reason for Continued Hospitalization: ESRD, encephalopathy MIPS ([employer]it-based Incentive Payment System) Applicable CPT: 73977, 17372 CHECK ALL THAT ARE MET: [] Measure #5 (CHF): All ages. Prescribe BLACK/ARB upon discharge for patients with left ventricular systolic dysfunction. If not, the reason is clearly documented in the medical chart .[] Measure #8 (CHF): All ages. Prescribe a beta marlys upon discharge for patients with left ventricular systolic dysfunction. If not, the reason is clearly documented in the medical chart. [x] Measure #47: Advance care plan or surrogate decision maker documented in the medical record. [x] Measure #130 The provider has documented, updated, or reviewed the patients current medication list and has documented it in the patients note. [] Measure #374 (All): Send report to referring provider. [] Measure #407(Sepsis due to MSSA bacteremia): Age 18+ Patient treated with a beta-lactam antibiotic (Nafcillin, Oxacillin or Cefazolin) as definitive therapy. MEDICAL COMPLEXITYHigh complexity medical decision making (need 2/3 categories)Problem - need 4 points [x]Acute/new problem with new plan for workup (4 points, 1 max) [] Acute/new problem without additional workup (3 points, 1 max) [] Unstable chronic problem actively being managed (2 point each, 2 max) [] Stable chronic problem actively being managed (1 point each, 2 max) [] Self-limited/transient process (constipation, muscle ache, etc) (1 point each, 2 max) Data - need 4 points [x] Reviewed labs/imaging studies (1 points, 2 max) [x] Independent review of imaging (EKG, xrays, etc) (2 points, 2 max) [x] Discussed case with consult/other MD/RN (2 points, 2 max) High Risk - qualify if have one of the following: [x] Severe exacerbation of acute problem, acute mental status change, IV narcotics, monitoring drug levels (vancomycin, INR, tacrolimus etc) I spent 38 minutes on this patient's case, and 23 mins was dedicated to counseling and/or care coordination. Discussed with bottle caser, Mikayla kang RN Time of note may not reflect time of encounter Boris Marrero M.D. Mar 16, 2020 17:56
--- NOTE | 2020-03-16 19:03 | NUR ---
NURSE HAND-OFF: Important Events on Shift: D/c planning, had hemodialysis, 2L out. Patient Status: stable, confused Diet: Reg Pending Orders: n/a Pending Results/Labs: n/a Pending MD notification: n/a Latest Vital Signs: Temperature 97.7 , Pulse 93 , B/P 151 /79 , Respiratory Rate 20 , O2 SAT 94 Vital Sign Comment: VS stable Latest Mcconnell Fall Score: 85 Fall Risk: High Risk Safety Measures: Call light Within Reach, Bed Alarm Zone 1, Side Rails Side Rails x3, Bed position Low and Locked. Fall Precautions: Door Sign Patient Fall Education Patient is pending discharge, ambulance is not here yet, endorsed discharged to night clerk nurse. Report given to Anisa RN.
--- NOTE | 2020-03-16 19:56 | Psychiatric Progress Note ---
Psychiatry Progress Note Psychiatry Progress Note Subjective the pt is agitated yelling Medications Current Medications Medications (Trade) Dose Ordered Sig/Sugey Route PRN Reason Start Time Stop Time Status Last Admin Dose Admin Acetaminophen (Tylenol) 650 mg Q6H PRN ORAL Mild Pain (Pain Scale 1-3) 02/25/20 03:30 03/26/20 03:29 03/02/20 10:17 Al Hydroxide/Mg Hydroxide (Mylanta II) 30 ml Q6H PRN ORAL Abdominal cramps 03/04/20 13:00 04/03/20 12:59 Aspirin (ASA) 81 mg DAILY ORAL 02/25/20 09:00 04/10/20 08:59 03/16/20 09:15 Benazepril HCl (Lotensin) 40 mg DAILY ORAL 03/01/20 09:00 03/31/20 08:59 03/16/20 09:14 Calcium Acetate (Phoslo) 667 mg TIAC ORAL 02/27/20 06:30 05/27/20 06:29 03/16/20 12:30 Diphenhydramine HCl (Benadryl) 50 mg Q6H PRN ORAL Itching 02/25/20 03:30 03/26/20 03:29 03/16/20 03:41 Epoetin Mychal (Epoetin Mychal(ESRD on dialysis)) 6,000 unit SUN-SUN-SUN SUBQ 03/08/20 21:00 06/06/20 20:59 03/15/20 21:07 Furosemide (Lasix) 60 mg BID IV 02/25/20 09:00 03/26/20 08:59 03/16/20 09:14 Heparin Sodium (Porcine) (Heparin 5000 units/ml) 5,000 units EVERY 8 HOURS SUBQ 02/25/20 06:00 04/10/20 05:59 03/16/20 06:14 Hydralazine HCl (Apresoline) 25 mg Q6H PRN ORAL SBP above 160 02/26/20 02:00 05/26/20 01:59 03/15/20 08:44 Hydralazine HCl (Apresoline) 100 mg Q8HR ORAL 03/01/20 14:00 05/27/20 13:59 03/16/20 06:04 Lorazepam (Ativan 2mg/ml 1ml) 0.5 mg Q4H PRN IV For Anxiety 03/15/20 16:08 03/22/20 16:07 03/16/20 00:45 Morphine Sulfate (Morphine Sulfate) 1 mg Q3H PRN IVP Severe Pain (Pain Scale 7-10) 03/15/20 16:08 03/22/20 16:07 03/16/20 09:17 Nifedipine (Procardia XL) 60 mg BID ORAL 03/07/20 18:00 04/01/20 08:59 03/16/20 18:29 Nitroglycerin (Nitro-Bid) 1 inch TID@0600,1200,1800 TOPIC 02/26/20 02:00 03/27/20 01:59 03/16/20 18:29 Quetiapine Fumarate (SEROqueL) 75 mg Q12HR ORAL 03/15/20 09:00 04/29/20 08:59 03/16/20 09:14 Sevelamer Carbonate (Renvela) 800 mg THREE TIMES A DAY ORAL 03/15/20 18:00 06/13/20 17:59 03/16/20 18:28 Neurological/Psychiatric: Reports: anxiety, depressed, emotional problems; Denies: no symptoms, headache, numbness, paresthesia, pre-existing deficit, seizure, tingling, tremors, weakness, other Allergies: Coded Allergies: SULFA (SULFONAMIDE ANTIBIOTICS) (Verified Allergy, Unknown, 02/24/20) Objective Data Height (Feet): 5 Height (Inches): 4.00 Weight (Pounds): 160 General Appearance: alert, confused, agitated Additional Comments: MENTAL STATUS EXAMINATION: Patient is having waxing and waning consciousness. Mood is anxious. Affect is blunted, congruent with mood. Thought process is concrete. Thought content, no suicidal or homicidal ideation. Cognition is impaired. Insight and judgment is impaired. ASSESSMENT: [place] I Acute metabolic encephalopathy. Dementia. [place] II Deferred. [place] III As above. [place] IV Low. [place] V 20. PLAN: 1. We will start patient on Haldol p.r.n. 2. Bilateral soft restraints. London Mckeon MD Mar 16, 2020 19:56
--- NOTE | 2020-03-16 21:45 | Neurology Progress Note ---
Interim History Interim History ROS Limited/Unobtainable: Yes Interim History no new deficits Objective Physical Exam Last Vital Signs Date Time Temp Pulse Resp B/P (MAP) Pulse Ox O2 Delivery O2 Flow Rate FiO2 03/16/20 21:11 144/87 03/16/20 18:29 93 03/16/20 16:00 97.7 20 94 03/16/20 09:00 Room Air 03/11/20 00:20 93 Laboratory Tests Test 03/16/20 06:19 Sodium Level 134 MMOL/L (136-145) L Potassium Level 4.2 MMOL/L (3.5-5.1) Chloride Level 99 MMOL/L (98-107) Carbon Dioxide Level 24 MMOL/L (21-32) Anion Gap 11 mmol/L (5-15) Blood Urea Nitrogen 100 mg/dL (7-18) H Creatinine 5.2 MG/DL (0.55-1.30) H Estimat Glomerular Filtration Rate 8.1 mL/min (>60) Glucose Level 101 MG/DL (74-106) Calcium Level 8.5 MG/DL (8.5-10.1) Phosphorus Level 6.7 MG/DL (2.5-4.9) H Magnesium Level 2.0 MG/DL (1.8-2.4) Head: normocophalic Neck: no rigidity EENT: benign Neurologic Exam Mental Status: awake, alert Cranial Nerve II: visual juarez Cranial Nerves III, IV, : PERRLA, EOMI Cranial Nerve V: normal facial sensations Objective ao x 2 flapping noted tangential non focal Impression/Recommendations Problems: (1) Anemia (2) UTI (urinary tract infection) (3) Hypertension (4) ESRF (end stage renal failure) (5) Noncompliance (6) Head injury, acute (7) Cocaine abuse (8) Acute exacerbation of CHF (congestive heart failure) (9) Pain syndrome, chronic (10) Elevated troponin I level (11) Abdominal discomfort (12) Abnormal LFTs Diagnostic Impression acute encephalopathy, likely uremic agitation tele seroquel 25 mg bid standing HD per nephro PT OT as able no opioids Hay Johnson MD Mar 16, 2020 21:45
--- NOTE | 2020-03-16 23:27 | NUR ---
NURSE NOTES: Patient was safely discharged to [facility] via ambulance accompanied by EMT. Report given to ZAYDA Lehman. Patient is awake, aaox4, on room air, no acute distress noted. VSS. Belonging list reviewed and accounted for by patient. Patient going to facility with Perma cath. D/C restraints.
--- NOTE | 2020-03-17 00:22 | Cardiology Progress Note ---
Subjective DATE OF SERVICE: Mar 16, 2020 Remains agitated and combative; refusing dialysis again today. Awaiting SNF and dialysis unit acceptance. BP parameters remain stable over past 24 hrs. Continues with HD/UF per renal - refused session today. 2D Echo: EF 30%, severe pulm HTN with PAP 90mmHg, global and regional wall motion abnormalities Objective Last 24 Hour Vital Signs Date Time Temp Pulse Resp B/P (MAP) Pulse Ox O2 Delivery O2 Flow Rate FiO2 03/16/20 21:11 144/87 03/16/20 18:29 93 151/79 03/16/20 18:29 151/79 03/16/20 18:27 93 151/79 (103) 03/16/20 16:00 97.7 102 20 130/82 (98) 94 03/16/20 12:31 157/97 03/16/20 12:00 98.2 117 20 157/97 (117) 94 03/16/20 09:16 104 158/76 03/16/20 09:14 158/76 03/16/20 09:00 Room Air 03/16/20 08:00 98.9 104 20 158/76 (103) 94 03/16/20 06:05 154/84 03/16/20 06:04 154/84 03/16/20 04:00 97.8 84 20 154/86 (108) 94 ROS: unchanged from my assessment of 02/25/20 HEENT: normal ENT inspection RHYTHM: NSR, ST LUNGS: diminished breath sounds, rales bilaterally - few, other - Right chest wall cath site with no active bleeding CARDIAC: normal rate, regular rhythm, normal S1 and S2, systolic murmur - 2/6 systolic murmur at LLSB, gallop/S4 ABDOMEN: normal bowel sounds, non tender, soft, no organomegaly EXTREMITIES: normal range of motion, non-tender, +1 edema Laboratory Tests Test 03/16/20 06:19 Sodium Level 134 MMOL/L (136-145) L Potassium Level 4.2 MMOL/L (3.5-5.1) Chloride Level 99 MMOL/L (98-107) Carbon Dioxide Level 24 MMOL/L (21-32) Anion Gap 11 mmol/L (5-15) Blood Urea Nitrogen 100 mg/dL (7-18) H Creatinine 5.2 MG/DL (0.55-1.30) H Estimat Glomerular Filtration Rate 8.1 mL/min (>60) Glucose Level 101 MG/DL (74-106) Calcium Level 8.5 MG/DL (8.5-10.1) Phosphorus Level 6.7 MG/DL (2.5-4.9) H Magnesium Level 2.0 MG/DL (1.8-2.4) Microbiology Date/Time Source Procedure Growth Status 03/16/20 11:00 Nasopharynx SARS-CoV-2 RdRp Gene Assay - Final Complete Assessment/Plan Assessment/Plan Metabolic encephalopathy ESRD Acute myocardial ischemia/possible NSTE myocardial infarction Ischemic and cocaine cardiomyopathy Severe pulmonary hypertension Acute on chronic systolic CHF Hypertensive urgency resolved Anemia of CKD Hypomagnesemia HD/UF per renal - reattempt at [facility] Continue EPO/Fe++ Anti-plt therapy Maintain current antiHTN and anti-failure regimen; use prn meds for now rare BP spikes. Magnesium replacement as needed Sourav Montejo MD Mar 17, 2020 00:22
--- NOTE | 2020-03-17 02:08 | Cardiology Report ---
APPROVED REPORT EXAM: Two-dimensional and M-mode echocardiogram with Doppler and color Doppler. INDICATION Congestive Heart Failure M-Mode DIMENSIONS IVSd1.1 (0.7-1.1cm)Left Atrium (MM)3.0 (1.6-4.0cm) LVDd5.2 (3.5-5.6cm)Aortic Root2.7 (2.0-3.7cm) PWd1.4 (0.7-1.1cm)Aortic Cusp Exc.1.9 (1.5-2.0cm) IVSs0.9 cmEPSS1.9 (>1.0cm) LVDs4.8 (2.5-4.0cm) PWs2.0 cm <Conclusion> Mild four chamber enlargement. Global LV hypokinesis wall motion. There is dyskinesis of anteroseptum, inferoseptum, inferior wall and apex. Ischemia cardiomyopathy can not be excluded. Left ventricular ejection fraction estimated to be 30%. Increased E point-interventricular septal separation c/w left ventricular dysfunction. No evidence left ventricular hypertrophy. The septum appears thinning. No evidence of pericardial effusion. Moderate focal aortic valve sclerosis with adequate cusp excursion. Thickened mitral valve leaflets with normal excursion. Mitral annulus and aortic root calcification. Pulmonic valve not well visualized. Normal tricuspid valve structure. IVC measured at 2.1 cm without physiologic collapse suggestive of increased RA pressure. A color flow and spectral Doppler study was performed and revealed: No aortic regurgitation. Mild to moderate mitral regurgitation. Mitral inflow indicates restrictive pattern, implying severely elevated left atrial pressure (Grade III). Severe tricuspid regurgitation. Tricuspid systolic velocities suggests peak right ventricular systolic pressure of 90 mmHg, consistent with severe pulmonary hypertension. Mild pulmonic regurgitation present.
--- NOTE | 2020-03-17 02:20 | Cardiology Report ---
APPROVED REPORT EKG Measurement Heart [id number] AR [id number] <Conclusion> Normal sinus rhythm Possible Left atrial enlargement Left axis deviation Left bundle branch block Abnormal ECG
--- NOTE | 2020-03-18 15:22 | Discharge Summary ---
Discharge Summary Discharge Summary _ DATE OF ADMISSION: 02/24/2020 DATE OF DISCHARGE: 03/16/2020 DISCHARGED BY: Dr Munroe REASON FOR ADMISSION: 73 years old female with past medical history of congestive heart failure, chronic kidney disease stage IV, polysubstance abuse ,presented to emergency department due to chest pain and bilateral lower extremity swelling. Patient apparently recently was discharged from [facility] . Patient was bouncing between different facilities. Patient reported multiply falls at home . She reported hitting her head several times from the falls. She lives alone . She denied loss of consciousness , vision changes, focal numbness or weakness. No chest pain or SOB. No abdominal pain, no nausea , vomiting or diarrhea Upon evaluation vital signs were stable. CT of the head revealed no acute intracranial pathology. Chest x-ray demonstrated cardiomegaly and mild pulmonary vascular congestion. Laboratory work-up revealed no leukocytosis ,hemoglobin 8, hematocrit 24 platelet count 161. Chemistry showed renal failure with BUN 110, creatinine 5.0. Glucose 114. Calcium 7.4. AST 48, ALT 35 Troponin elevated 0.199 , proBNP above 2000 . RKG revealed no acute ischemic changes. Albumin 2.4. Urinalysis revealed evidence of urinary tract infection . Urine toxicology screen was positive for cocaine. Patient subsequently admitted for further management. CONSULTANTS: telegraphic typewriter operator chief fiber optic technician Dr. Johnson surgery Dr. Lema psychiatrist [facility]RSE: Patient admitted to monitored floor with plan for emergent hemodialysis. Patient was confused and unable to consent. Given urgency of the situation , patient undergone placement of tunneled hemodialysis catheter by interventional radiology. Hemodialysis provided with close monitoring of volumes and renal parameters. Cardiology seen and evaluated patient Echocardiogram revealed severe cardiomyopathy with ejection fraction 30% , severe pulmonary hypertension with pressure of 98 , PAP of 90, global and regional wall motion abnormality. Antihypertensive regimen was optimized : BLACK inhibitor was added , and hydralazine dose was increased Antiplatelet therapy provided. Antihypertensive and anti-failure regimen titrated. As needed antihypertensive were used for rare blood pressure spikes. Troponin trending down Patient pulled tunnelled hemodialysis catheter and required insertion of another one. Patient was unable to make her own healthcare decision, likely due to uremic encephalopathy. Hemodialysis was necessary to improve her current condition. Patient subsequently undergone Perma-cath replacement by interventional radiology . Hemoglobin and hematocrit were closely monitored with goal to keep hemoglobin above 7 . Patient received 1 unit of packed red blood cells while in the hospital.. Epogen continued. Urine culture revealed mixed urogenital contaminants. Blood culture 02/24 were negative. COVID-19 by PCR and 2 rapid COVID-19 were all negative. Neurologist closely followed. Per neurologist acute encephalopathy was likely uremic . Neurologist recommended start Seroquel given anxiety and agitation and initiate PT/ OT when stable. No opioids were given. LFT were closely monitored, trended down . Abdominal ultrasound revealed no evidence of gallstones. Focal gallbladder wall thickening and some pericholecystic fluid ,probably due to edema ,but poss ibility of acalculous acute cholecystitis should be considered. Surgeon followed and closely reviewed abdominal ultrasound . No need for acute surgical intervention . LFT trended down. Psychiatrist seen and evaluated patient and initiated psychiatric medication regimen. Patient noncompliant and refused dialysis and blood transfusion on the day of discharge. Placement was arranged along with outpatient hemodialysis center. Patient was stable for discharge. 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 ( requiring initiation of hemodialysis) UTI Uremic encephalopathy Acute metabolic encephalopathy Elevated troponin , possible NSTEMI CHF exacerbation/fluid overload Acute on chronic systolic CHF Cardiomyopathy with ejection fraction 30% Ischemic and cocaine cardiomyopathy Severe pulmonary hypertension Hypertensive urgency -resolved Intractable pain Polysubstance abuse, cocaine abuser Acute blood loss anemia Anemia of chronic kidney disease Noncompliance Chronic pain syndrome Abnormal LFT Acute head injury DISCHARGE MEDICATIONS: List of medication was sent to accepting facility DISCHARGE INSTRUCTIONS: Patient was discharged to the assisted facility. Follow up with medical doctor at the facility. I have been assigned to dictate discharge summary for this account. I was not involved in the patient's management. Fozia Treadwell NP Mar 18, 2020 15:22
== END 2020-03-16 23:18 | DRG 280 ==
LOC: EDBD 21:33 → EMR 21:57 → 2E 22:16 → EDBEDREQSVC 22:58 → EDBEDREQ 02-25 01:07 → 4E 02-26 13:23
DX: I13.2 Hypertensive heart and chronic kidney disease with heart failure and with stage 5 chronic kidney disease, or end stage renal disease (principal); I21.4 Non-ST elevation (NSTEMI) myocardial infarction; I50.23 Acute on chronic systolic (congestive) heart failure; G93.41 Metabolic encephalopathy; N18.6 End stage renal disease; N39.0 Urinary tract infection, site not specified; D62 Acute posthemorrhagic anemia; I16.0 Hypertensive urgency; Z88.2 Allergy status to sulfonamides; F11.10 Opioid abuse, uncomplicated; R29.6 Repeated falls; I27.20 Pulmonary hypertension, unspecified; I25.5 Ischemic cardiomyopathy; F19.10 Other psychoactive substance abuse, uncomplicated; I42.8 Other cardiomyopathies; D63.1 Anemia in chronic kidney disease; G89.4 Chronic pain syndrome; Z91.19 Patient's noncompliance with other medical treatment and regimen; S09.90XA Unspecified injury of head, initial encounter; W19.XXXA Unspecified fall, initial encounter; Z91.81 History of falling; Y92.009 Unspecified place in unspecified non-institutional (private) residence as the place of occurrence of the external cause; R94.5 Abnormal results of liver function studies; Z95.0 Presence of cardiac pacemaker; F29 Unspecified psychosis not due to a substance or known physiological condition; F03.90 Unspecified dementia, unspecified severity, without behavioral disturbance, psychotic disturbance, mood disturbance, and anxiety; F14.11 Cocaine abuse, in remission; E83.42 Hypomagnesemia
CPT/HCPCS: 36415; 36558; 70450; 71045; 76000; 76700; 80048; 80053; 80076; 80307; 81003; 82306; 82728; 82977; 83540; 83550; 83735; 83880; 83970; 84100; 84484; 85007; 85025; 86704; 86705; 86706; 86707; 86708; 86709; 86803; 86850; 86900; 86901; 86920; 87040; 87081; 87086; 87340; 87350; 87517; 92610; 93005; 93306; 96365; 96375; 99285; J2405; J8499; U0002

== ENCOUNTER 2020-04-11 06:11 | Inpatient (IN) | payer MEDICARE, OTHER ==
[~2020-04-11] VITALS: Ht 170.2 cm; Wt 52.2 kg
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
[2020-04-11] MEDS ORDERED: DiphenhydrAMINE 50mg/ml Inj IVP ONE (06:30)
[2020-04-11] MEDS ORDERED: Haloperidol 5mg/ml Inj IM ONE ×2 (06:30→07:45)
[2020-04-11] MEDS ORDERED: Metoclopramide 10mg/2ml Inj IVP ONE (06:30)
--- NOTE | 2020-04-11 06:33 | NUR ---
patient refused blood draw
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
[2020-04-11] MEDS ORDERED: TRAMADOL HCL50 MG ORAL (06:37)
[2020-04-11] MEDS ORDERED: BENAZEPRIL HCL20 MG ORAL (06:37)
[2020-04-11] MEDS ORDERED: DOCUSATE SODIU100 MG ORAL (06:37)
[2020-04-11] MEDS ORDERED: FUROSEMIDE40 MG ORAL (06:37)
[2020-04-11] MEDS ORDERED: SPIRONOLACTONE25 MG ORAL (06:37)
[2020-04-11] MEDS ORDERED: HYDRALAZINE HCL25 M1 ORAL (06:37)
[2020-04-11] MEDS ORDERED: DIGOXIN250 MCG ORAL (06:37)
[2020-04-11] MEDS ORDERED: VITAMIN C250 MG ORAL (06:37)
[2020-04-11] MEDS ORDERED: LIPITOR20 MG ORAL (06:37)
[2020-04-11] MEDS ORDERED: ASPIRIN81 MG ORAL (06:37)
[2020-04-11] MEDS ORDERED: FERROUS SULFAT325 MG ORAL (06:37)
[2020-04-11] MEDS ORDERED: TOPIRAMATE25 MG ORAL (06:37)
[2020-04-11] MEDS ORDERED: CATAPRES0.1 MG ORAL (06:37)
--- NOTE | 2020-04-11 06:38 | NUR ---
ED Nurse Note: Patient refused medication
--- NOTE | 2020-04-11 06:45 | NUR ---
Destinee mackenzie in [place] - 04/11/20 at 0646 by SELVIN KRISHAN Thompson Note: fannie wheeler
--- NOTE | 2020-04-11 06:45 | NUR ---
ED Nurse Note: Lab contacted to come perform venipuncture
[2020-04-11 06:52] VITALS: BP 142/88
--- NOTE | 2020-04-11 07:20 | NUR ---
pt alert and stable at this time in asilation precautioin IV place in Lt foream. Lab samples taken and send to the lab. will continue monitoring for any change in condition.
[2020-04-11] MEDS ORDERED: DiphenhydrAMINE 50mg/ml Inj IM ONE (07:45)
[2020-04-11 08:17] VITALS: BP 149/90
--- NOTE | 2020-04-11 08:28 | Diagnostic Imaging Report ---
EXAM: XR Chest, 1 View CLINICAL HISTORY: Chest pain TECHNIQUE: Frontal view of the chest. COMPARISON: Chest x-rays dated 02/26/20 FINDINGS: Lungs: Mild pulmonary vascular congestion. Subsegmental atelectasis versus infiltrate in the left lung base. Pleural space: Unremarkable. The costophrenic angles are sharp. No visible pneumothorax. Heart: Cardiomegaly. Mediastinum: Unremarkable. Bones/joints: Mild degenerative changes throughout the visualized spine. Chronic post osseous remodeling of the inferior right scapula. Tubes, lines and devices: Dual-lumen right IJ central venous catheter with the tips in the right atrium region. Telemetry leads overlie the thorax. Cardiac pacer in the left chest wall with the lead tips in the right atrium and right ventricle regions. IMPRESSION: 1. Cardiomegaly. 2. Mild pulmonary vascular congestion. 3. Subsegmental atelectasis versus infiltrate in the left lung base.
[2020-04-11 08:41] LABS: MEAN CORPUSCULAR VOLUME 87 FL (80-99); PLATELET COUNT 165 K/UL (150-450); RED BLOOD COUNT 2.41 M/UL (4.20-5.40); RED CELL DISTRIBUTION WIDTH 15.1 % (11.6-14.8); WHITE BLOOD COUNT 5.9 K/UL (4.8-10.8)
[2020-04-11 08:42] LABS: HEMOGLOBIN 6.5 G/DL (12.0-16.0)
[2020-04-11 08:50] LABS: ANION GAP 11 mmol/L (5-15); BLOOD UREA NITROGEN 63 mg/dL (7-18); CARBON DIOXIDE 26 MMOL/L (21-32); CHLORIDE 103 MMOL/L (98-107); CREATININE 5.2 MG/DL (0.55-1.30); POTASSIUM 3.6 MMOL/L (3.5-5.1); SODIUM 140 MMOL/L (136-145)
[2020-04-11 09:08] LABS: ALANINE AMINOTRANSFERASE 13 U/L (12-78); ALBUMIN 2.1 G/DL (3.4-5.0); ALBUMIN/GLOBULIN RATIO 0.5 (1.0-2.7); ALKALINE PHOSPHATASE 110 U/L (46-116); ASPARTATE AMINO TRANSFERASE 23 U/L (15-37); BILIRUBIN,TOTAL 0.5 MG/DL (0.2-1.0); CREATINE KINASE 98 U/L (26-308); FERRITIN 419 NG/ML (8-388)
[2020-04-11] MEDS ORDERED: Nitroglycerin 2% oint pkt TOPIC ONE (09:15)
[2020-04-11] MEDS ORDERED: Aspirin Baby 81mg ORAL ONE (09:15)
--- NOTE | 2020-04-11 10:20 | NUR ---
Call Tele and give report to Keila HERNANDEZ. Alert, V/S stable under her condition, Pt stable at this time.
--- NOTE | 2020-04-11 10:33 | NUR ---
NURSE NOTES: Admitted patient from ED under Dr Epperson, report given by Fernanda HERNANDEZ. Patient transferred to bed. Belongings accounted for. Skin intact. IV on left forearm g20 intact and patent. With right chest catheter for dialysis. Patient alert, uncooperative and screaming. HOB elevated. Bed locked in low position. Call light within reach. Will continue plan of care. Addendum: 04/11/20 at 1102 by Keila Espinoza RN NURSE NOTES: nuclear monitoring technician placed.
[2020-04-11 11:30] VITALS: BP 117/72
[2020-04-11] MEDS ORDERED: Milk of Magnesia 30ml Ud ORAL PRN (12:15)
[2020-04-11] MEDS ORDERED: Albuterol 90mcg Inhaler 8gm INH PRN (12:15)
[2020-04-11] MEDS ORDERED: Miralax 17gm pkt ORAL PRN (12:15)
--- NOTE | 2020-04-11 12:46 | Consultation ---
History of Present Illness General Chief Complaint: General Complaint Reason for Consultation: chest pain Present Illness HPI 74 year old female with history of dementia with behavioral disturbance, ESRD on HD, HTN, HLD, anemia presents from snf with vague report of chest pain. Patient skipped dialysis on Sunday as she was too agitated. Last dialysis was Sunday. she was noted to be anemic on presentation plan for admission and urgent HD today Allergies: Coded Allergies: MORPHINE (Unverified Allergy, Unknown, 04/11/20) PENICILLINS (Unverified Allergy, Unknown, 04/11/20) SULFA (SULFONAMIDE ANTIBIOTICS) (Verified Allergy, Unknown, 02/24/20) Medication History Scheduled Ascorbic Acid* (Vitamin C*), 250 MG ORAL DAILY, (Reported) Aspirin* (Aspirin*), 81 MG ORAL DAILY, (Reported) Atorvastatin Calcium* (Lipitor*), 20 MG ORAL BEDTIME, (Reported) Benazepril Hcl* (Benazepril Hcl*), 20 MG ORAL EVERY 12 HOURS, (Reported) Carvedilol* (Carvedilol*), 25 MG ORAL EVERY 12 HOURS, (Reported) Cyanocobalamin (Vitamin B-12) (Vitamin B12), 1,000 MCG PO DAILY, (Reported) Digoxin* (Digoxin*), 0.25 MG ORAL every 48 hours, (Reported) Docusate Sodium* (Docusate Sodium*), 100 MG ORAL TWICE A DAY, (Reported) Ferrous Sulfate* (Ferrous Sulfate*), 325 MG ORAL DAILY, (Reported) Furosemide* (Lasix*), 40 MG ORAL DAILY, (Reported) Hydralazine Hcl* (Hydralazine Hcl*), 25 MG ORAL EVERY 12 HOURS, (Reported) Lorazepam* (Ativan*), 1 MG ORAL BID, (Reported) Polyethylene Glycol 3350* (Miralax*), 17 GM ORAL DAILY, (Reported) Quetiapine Fumarate* (Seroquel*), 25 MG ORAL MWF, (Reported) Spironolactone* (Aldactone*), 25 MG ORAL DAILY, (Reported) Topiramate* (Topamax*), 25 MG ORAL TWICE A DAY, (Reported) Vitamin B Cmplx/Vit C/Folic AC (Nephro-Leila Tablet), 1 TAB ORAL DAILY, (Reported) Scheduled PRN Albuterol Sulfate (Ventolin Hfa), 2 PUFFS INH EVERY 6 HOURS PRN for COPD, (Reported) Clonidine Hcl* (Catapres*), 0.1 MG ORAL EVERY 6 HOURS PRN for SBP>160, (Reported) Magnesium Hydroxide* (Milk Of Magnesia*), 30 ML ORAL DAILY PRN for Constipation, (Reported) Tramadol Hcl* (Ultram*), 50 MG ORAL Q6H PRN for For Pain, (Reported) Patient History Healthcare decision maker Resuscitation status Advanced Directive on File Review of Systems All Other Systems: negative except mentioned in HPI Physical Exam General Appearance: cachetic Lines, tubes and drains: peripheral HEENT: normocephalic, atraumatic Neck: non-tender, normal alignment Respiratory/Chest: chest wall non-tender, lungs clear, normal breath sounds Cardiovascular/Chest: normal peripheral pulses Abdomen: normal bowel sounds, soft Extremities: normal range of motion, no edema, no cyanosis Skin Exam: normal pigmentation, no diaphoresis Neurologic: oriented x 3 Last 24 Hour Vital Signs Date Time Temp Pulse Resp B/P (MAP) Pulse Ox O2 Delivery O2 Flow Rate FiO2 04/11/20 11:30 99.3 70 18 117/72 (87) 92 04/11/20 11:14 Room Air 04/11/20 10:25 98.0 89 16 161/86 96 Room Air 04/11/20 09:32 172/89 04/11/20 08:17 98.3 63 16 149/90 97 Room Air 04/11/20 06:52 98.8 18 142/88 96 Room Air 04/11/20 06:18 98.8 78 18 142/88 (106) 96 Room Air Intake and Output 04/10/20 04/11/20 19:00 07:00 Intake Total 0 ml Balance 0 ml Intake Oral 0 ml Laboratory Tests Test 04/11/20 07:59 White Blood Count 5.9 K/UL (4.8-10.8) Red Blood Count 2.41 M/UL (4.20-5.40) L Hemoglobin 6.5 G/DL (12.0-16.0) *L Hematocrit 21.0 % (37.0-47.0) L Mean Corpuscular Volume 87 FL (80-99) Mean Corpuscular Hemoglobin 27.0 PG (27.0-31.0) Mean Corpuscular Hemoglobin Concent 31.0 G/DL (32.0-36.0) L Red Cell Distribution Width 15.1 % (11.6-14.8) H Platelet Count 165 K/UL (150-450) Mean Platelet Volume 7.5 FL (6.5-10.1) Neutrophils (%) (Auto) % (45.0-75.0) Lymphocytes (%) (Auto) % (20.0-45.0) Monocytes (%) (Auto) % (1.0-10.0) Eosinophils (%) (Auto) % (0.0-3.0) Basophils (%) (Auto) % (0.0-2.0) Differential Total Cells Counted 100 Neutrophils % (Manual) 67 % (45-75) Lymphocytes % (Manual) 16 % (20-45) L Monocytes % (Manual) 14 % (1-10) H Eosinophils % (Manual) 3 % (0-3) Basophils % (Manual) 0 % (0-2) Band Neutrophils 0 % (0-8) Platelet Estimate Adequate Platelet Morphology Normal Hypochromasia 1+ Anisocytosis 1+ Sodium Level 140 MMOL/L (136-145) Potassium Level 3.6 MMOL/L (3.5-5.1) Chloride Level 103 MMOL/L (98-107) Carbon Dioxide Level 26 MMOL/L (21-32) Anion Gap 11 mmol/L (5-15) Blood Urea Nitrogen 63 mg/dL (7-18) H Creatinine 5.2 MG/DL (0.55-1.30) H Estimat Glomerular Filtration Rate 8.1 mL/min (>60) Glucose Level 75 MG/DL (74-106) Calcium Level 7.0 MG/DL (8.5-10.1) L Magnesium Level 1.7 MG/DL (1.8-2.4) L Ferritin 419 NG/ML (8-388) H Total Bilirubin 0.5 MG/DL (0.2-1.0) Aspartate Amino Transf (AST/SGOT) 23 U/L (15-37) Alanine Aminotransferase (ALT/SGPT) 13 U/L (12-78) Alkaline Phosphatase 110 U/L (46-116) Total Creatine Kinase 98 U/L (26-308) Troponin I 0.058 ng/mL (0.000-0.056) C-Reactive Protein, Quantitative 8.4 mg/dL (0.00-0.90) H Pro-B-Type Natriuretic Peptide > 11795 pg/mL (0-125) H Total Protein 6.3 G/DL (6.4-8.2) L Albumin 2.1 G/DL (3.4-5.0) L Globulin 4.2 g/dL Albumin/Globulin Ratio 0.5 (1.0-2.7) L Lipase 145 U/L (73-393) Thyroid Stimulating Hormone (TSH) 1.929 uiU/mL (0.358-3.740) Salicylates Level 1.7 ug/mL (2.8-20) L Acetaminophen Level 10 MCG/ML (10-30) Serum Alcohol < 3 mg/dL Height (Feet): 5 Height (Inches): 7.00 Weight (Pounds): 115 Medications Current Medications Medications (Trade) Dose Ordered Sig/Sugey Route PRN Reason Start Time Stop Time Status Last Admin Dose Admin Albuterol Sulfate (Proventil MDI) 2 puff EVERY 6 HOURS PRN INH Shortness of Breath 04/11/20 12:15 07/10/20 12:14 Aspirin (ASA) 81 mg DAILY ORAL 04/12/20 09:00 05/27/20 08:59 Atorvastatin Calcium (Lipitor) 20 mg BEDTIME ORAL 04/11/20 21:00 07/10/20 20:59 Benazepril HCl (Lotensin) 20 mg EVERY 12 HOURS ORAL 04/11/20 21:00 05/11/20 20:59 Carvedilol (Coreg) 25 mg BID ORAL 04/11/20 18:00 05/11/20 17:59 Clonidine HCl (Catapres Tab) 0.1 mg EVERY 6 HOURS ORAL 04/11/20 18:00 07/10/20 17:59 Cyanocobalamin (Vitamin B-12) 1,000 mcg DAILY ORAL 04/12/20 09:00 05/12/20 08:59 Digoxin (Lanoxin) 0.25 mg EVERY OTHER DAY ORAL 04/13/20 09:00 07/12/20 08:59 Docusate Sodium (Colace) 100 mg TWICE A DAY ORAL 04/11/20 18:00 05/11/20 17:59 Ferrous Sulfate (Feosol) 325 mg DAILY ORAL 04/12/20 09:00 07/11/20 08:59 Furosemide (Lasix) 40 mg DAILY ORAL 04/12/20 09:00 05/12/20 08:59 Heparin Sodium (Porcine) (Heparin 5000 units/ml) 5,000 units BID SUBQ 04/11/20 18:00 05/26/20 17:59 Hydralazine HCl (Apresoline) 25 mg EVERY 12 HOURS ORAL 04/11/20 21:00 07/10/20 20:59 Magnesium Hydroxide (Mom) 30 ml HSPRN PRN ORAL Constipation 04/11/20 12:15 05/11/20 12:14 Polyethylene Glycol (Miralax) 17 gm DAILY PRN ORAL Constipation 04/11/20 12:15 05/11/20 12:14 Spironolactone (Aldactone) 25 mg DAILY ORAL 04/12/20 09:00 05/12/20 08:59 Topiramate (Topamax) 25 mg DAILY ORAL 04/12/20 09:00 05/27/20 08:59 Tramadol HCl (Ultram) 50 mg Q6H PRN ORAL For Pain 04/11/20 12:30 04/18/20 12:29 Vitamin B Complex/ Vit C/Folic Acid (Nephrovite) 1 tab DAILY ORAL 04/11/20 14:00 05/11/20 13:59 Assessment/Plan Diagnosis [place] [facility]: #chest pain r/o ACS #ESRD on HD #acute on chronic anemia #Accelerated HTN #dementia with behavioural disturbance - plan for HD today - prbc transfusion if patient agrees - check iron panel - resume epo - check PTH/vitamin D - monitor mag and phos daily while inpatient - cardiology eval - resume ETL 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 Apr 11, 2020 12:46
--- NOTE | 2020-04-11 13:12 | NUR ---
NURSE NOTES: Patient uncooperative and getting out of bed, bilateral soft wrist restraints placed as ordered.
--- NOTE | 2020-04-11 13:21 | NUR ---
NURSE NOTES: Covid PCR swab done, sent to lab
[2020-04-11] MEDS ORDERED: Haloperidol 5mg/ml Inj IM PRN (13:30)
[2020-04-11] MEDS: Nephrovite tab (Rena-Vite) ORAL SCH (15:01)
[2020-04-11 16:00] VITALS: BP 161/71
--- NOTE | 2020-04-11 16:45 | NUR ---
NURSE NOTES: Patient pulled out IV. IV reinserted to left thumb g22. Dialysys started by nurse Hernandez.
[2020-04-11] MEDS: Docusate 100mg cap ORAL SCH (17:38)
[2020-04-11] MEDS: Carvedilol 25mg Tab ORAL SCH (17:38)
[2020-04-11] MEDS: Heparin 5000 units/ml inj SUBQ SCH (17:39)
--- NOTE | 2020-04-11 18:16 | NUR ---
NURSE NOTES: IV line found taken out, blood on wrist and sheets. Dr Epperson informed, left message.
--- NOTE | 2020-04-11 19:20 | NUR ---
NURSE NOTES: Received report from MARY WATERS. Pt is alert by name 1-2. Pt is confused, combative, aggressive and pullinh devices, biting restraints. Pt is trying to get out in bed. Pt educated on restraints care. No skin breakdown noted underneath the restraints, with palpable pulses. No distress. O2 sat- 100%. Bed in lowest position. Bed in locked. Call light within reach. Alarm on- bed zone 2. Continue to plan of care. Noted Magnesium 1.7, upon receiving the pt, informed Dr. Montejo consultant nurse of Dr. Epperson right away. No IV line per Am nurse. Pt pulling it out, inspite of restraints. Will insert new one. Awaiting for response from Dr. Montejo.
--- NOTE | 2020-04-11 19:35 | NUR ---
NURSE HAND-OFF REPORT: Important Events on Shift: dialysis done, 2L out. Patient pulling out IV's and biting on restraints, trying to get out of bed, screaming, agitated and restless Patient Status: agitated, restless Diet: renal, mech chopped Pending Orders: Pending Results/Labs: Pending MD notification: Latest Vital Signs: Temperature 98.8 , Pulse 64 , B/P 161 /71 , Respiratory Rate 18 , O2 SAT 91 , Room Air, O2 Flow Rate . Vital Sign Comment: EKG Rhythm: SR with BBB with PVC Rhythm change?: N MD Notified?: - MD Response: Latest Mcconnell Fall Score: 50 Fall Risk: High Risk Safety Measures: Call light Within Reach, Bed Alarm Zone 1, Side Rails Side Rails x3, Bed position Low and Locked. Fall Precautions: Yellow Socks Report given to Princess HERNANDEZ.
--- NOTE | 2020-04-11 19:59 | NUR ---
NURSE NOTES: Unable to scan the meds, pt is about to fall and dangling out in bed.
[2020-04-11 20:00] VITALS: BP 170/89
[2020-04-11] MEDS: HydrALAZINE 25mg tab ORAL SCH (20:38)
[2020-04-11] MEDS: Atorvastatin 20mg tab ORAL SCH (20:38)
[2020-04-11] MEDS: Benazepril 10mg tab ORAL SCH (20:38)
--- NOTE | 2020-04-11 21:15 | NUR ---
NURSE NOTES: Unable to LVM to Dr. Munroe.
--- NOTE | 2020-04-11 21:27 | NUR ---
NURSE NOTES: Left Voicemail to Dr nico mitchell, Juliet Charge Nurse informed.
--- NOTE | 2020-04-11 21:30 | NUR ---
NURSE NOTES: Per Noted of Dr. Munroe, aware of Magnesium 1.7.
[2020-04-11] MEDS: Haloperidol 5mg/ml Inj IM PRN (23:45)
--- NOTE | 2020-04-11 23:56 | NUR ---
NURSE NOTES: Pt is agitated again, wants to get up and out in bed. No signs of pain, or respiratory distress noted. Pt on Room air. o2 sat- 100%.
[2020-04-12] VITALS: BP 170/90
--- NOTE | 2020-04-12 00:24 | NUR ---
NURSE NOTES: Per Notes of Dr. Munroe continue monitoring Mag and Phos level. Still No response from Zhou or Dr. Montejo.
--- NOTE | 2020-04-12 01:17 | NUR ---
NURSE NOTES: Rechecked Bp: 160/77. Will Continue to monitor pt.
--- NOTE | 2020-04-12 01:52 | NUR ---
NURSE NOTES: Pt is sleeping, BP; 150/90. Bed low and locked, bed in lowest position, call light within reach.
--- NOTE | 2020-04-12 03:53 | NUR ---
NURSE NOTES: Unable to do the blood draw, Lynda Srivastava (lab) pt been refusing.
--- NOTE | 2020-04-12 03:59 | Consultation ---
DATE OF CONSULTATION: 04/11/2020 CARDIOLOGY CONSULTATION REASON FOR CONSULTATION: Chest pain and shortness of breath with permanent pacemaker. HISTORY OF PRESENT ILLNESS: This is a 74-year-old female known to me from prior care. [facility] this [facility]. Today, she complained of chest pain although later recanted that complaint, but noted discomfort over her pacemaker site. The patient has been increasingly short of breath. She missed her dialysis session 2 days ago and has not had dialysis since April 07, 2020. PAST MEDICAL HISTORY: End-stage renal disease, hypertensive heart disease, conduction system disease with permanent pacemaker, coronary atherosclerosis status post myocardial infarction, diastolic and systolic dysfunction with congestive heart failure, history of cocaine abuse, anemia of chronic kidney disease, paroxysmal atrial fibrillation, and history of hepatitis B. MEDICATIONS: Prior to admission, reviewed and reconciled. ALLERGIES: Include sulfa, penicillin, and morphine. FAMILY HISTORY: Noncontributory. SOCIAL HISTORY: Substance abuse as noted above. Denies smoking or alcohol abuse. REVIEW OF SYSTEMS: Cannot be reliably obtained from the patient at this time. PHYSICAL EXAMINATION: VITAL SIGNS: Blood pressure 142/88, heart rate 78, respirations 18, and afebrile. HEENT: Temporal wasting. Conjunctivae pink. Arcus senilis. Sclerae are anicteric. Oropharynx clear. Mucous membranes dry. NECK: Supple. Jugular venous pressure is slightly elevated. LUNGS: Bilateral rhonchi. Chest wall with a right PermCath and a left pacemaker. Both sites appear without signs of secondary infection. CARDIAC: Regular rhythm and rate. Normal S1, S2 with a 1/6 systolic murmur at apex. ABDOMEN: Soft and nontender. EXTREMITIES: No edema. NEUROLOGIC: With no focal deficits. DIAGNOSTIC DATA: EKG reveals ventricular paced rhythm. Chest x-ray reveals pulmonary venous congestion. White count is 5.9 and hemoglobin 6.5. Troponin 0.058. Natriuretic peptide over 35,000. Potassium is 3.6 and magnesium is 1.7. IMPRESSION: 1. Missed dialysis session. 2. Acute on chronic diastolic and systolic congestive heart failure exacerbation. 3. Permanent pacemaker with no signs of malfunction. 4. End-stage renal disease. 5. Hypertensive heart disease with labile blood pressure. 6. History of polysubstance abuse. 7. Acute coronary syndrome and possible non-ST elevation infarction. 8. Pulmonary hypertension and degenerative valve disease. 9. Metabolic encephalopathy. PLAN: 1. Cardiac monitoring. 2. Hemodialysis with ultrafiltration. 3. Maximize anti-failure and antihypertensive regimen. 4. Encourage compliance with dialysis. 5. Topical nitrates until euvolemic. 6. Pacemaker interrogation if not recently done. 7. Serial troponin levels. 8. Antiplatelet therapy. 9. Lipid panel. 10. Further recommendations will follow. Sourav Montejo M.D. DR: SHEILA JOB#: [id number] CC:
[2020-04-12 04:00] VITALS: BP 145/85
[2020-04-12 04:06] LABS: HEMATOCRIT 24.8 % (37.0-47.0); HEMOGLOBIN 7.7 G/DL (12.0-16.0); MEAN CORPUSCULAR VOLUME 88 FL (80-99); PLATELET COUNT 147 K/UL (150-450); RED BLOOD COUNT 2.81 M/UL (4.20-5.40); RED CELL DISTRIBUTION WIDTH 14.3 % (11.6-14.8); WHITE BLOOD COUNT 6.8 K/UL (4.8-10.8)
[2020-04-12] MEDS: traMADol 50mg tab ORAL PRN ×2 (05:03→19:45)
--- NOTE | 2020-04-12 05:14 | NUR ---
NURSE NOTES: Pt is still combative and aggressive. Educated about restraints care. Continue to plan of care. Bed in lowest position. Call light within reach. Restraints on.
--- NOTE | 2020-04-12 06:00 | NUR ---
NURSE NOTES: Seen by Dr. Epperson, per Dr. Epperson NNO for hgb of 7.7, and Magnesium 1.7. He will order pain pill and CATscan for pt.
--- NOTE | 2020-04-12 07:21 | NUR ---
CASE MANAGEMENT:REVIEW 74 YR OLD FEMALE [facility] SI: ACUTE ENCEPHALOPATHY ANEMIA. ELEVATED TROPONIN. CHF 98.8 78 18 142/88 96% ON RA H/H-6.5/21.0 BUN+63 CR+5.2 CA-7.0 MAG-1.7 TROPONIN(+) 0.058 BNP>[id number] IS: 1L NS BOLUS IV BENADRYL X2 IV REGLAN HALDOL IM X2 ASA PO X1 NITRO 1" TRANSFUSE 1 UNIT PRBC'S : TO TELEMETRY DCP: FROM [facility] Addendum: 04/12/20 at 0728 by LUBA HERNANDEZN PMH: ESRD
--- NOTE | 2020-04-12 07:26 | NUR ---
NURSE HAND-OFF REPORT: Important Events on Shift: pt is agitated and combative, hgb 7.7 and mg 1.7- NNO at this time from Dr. Epperson, pain on the right side of the body, BP- 160's- 170's- routine htn meds given Patient Status: Stable Diet: renal mech soft Pending Orders: None Pending Results/Labs: None Pending MD notification: None Latest Vital Signs: Temperature 98.1 , Pulse 81 , B/P 145 /85 , Respiratory Rate 20 , O2 SAT 95 , Room Air, O2 Flow Rate . Vital Sign Comment: WNL EKG Rhythm: SR with BBB with PVC Rhythm change?: N MD Notified?: - MD Response: Latest Mcconnell Fall Score: 50 Fall Risk: High Risk Safety Measures: Call light Within Reach, Bed Alarm Zone 2, Side Rails Side Rails x3, Bed position Low and Locked. Fall Precautions: Yellow Socks Yellow Gown Door Sign Patient Fall Education Report given to [MARY Garcia].
[2020-04-12 08:00] VITALS: BP 149/85
--- NOTE | 2020-04-12 08:37 | NUR ---
NURSE NOTES: pt. in bed, MACHINIST AUTOMOTIVE is feeding pt. now. pt is on restrains and trying to bite out of them. Pt on cardiac cath lab technologist no signs of cardiac or respiratory distress. Bes locked and in lowest position, call light within reach. Bed side rails up, bed alarm on. Will continue to monitor pt.
[2020-04-12] MEDS ORDERED: Topiramate 25mg tab ORAL SCH (09:00)
--- NOTE | 2020-04-12 09:00 | NUR ---
RD ASSESSMENT & RECOMMENDATIONS SEE CARE ACTIVITY FOR COMPLETE ASSESSMENT DAILY ESTIMATED NEEDS: Needs based on ESRD w/ HD, 52.3kg 30-35 kcals/kg 8614-2560 total kcals 1.2-1.8 g protein/kg 63-94 g total protein Fluids per MD NUTRITION DIAGNOSIS: Increased kcal/prot needs R/T renal dysfunction as evidenced by pt w/ ESRD on HD. CURRENT DIET: Renal diet ms chopped PO DIET RECOMMENDATIONS: RENAL/ texture per RANGE MASTER ADDITIONAL RECOMMENDATIONS: * Daily calibrated bedscale wt * Nephrovite x 1 * Add NEPRO BID High pro snacks in b/w meal s * On lasix, monitor lytes * BG 75, rec bedside BG checks for hypoglycemia .
--- NOTE | 2020-04-12 09:14 | History and Physical Report ---
DATE OF ADMISSION: 04/11/2020 CHIEF COMPLAINT: Agitation, missed dialysis, chest pain. HISTORY OF PRESENT ILLNESS: The patient is a 74-year-old female, who [facility] with multiple complaints including agitation, confusion, chest pain and shortness of breath. The patient is on chronic hemodialysis. She was agitated on Sunday and was unable to be dialyzed. Due to her agitation, she was [facility] where she has been combative and aggressive and uncooperative with care. On the day of transfer, she complained of chest pain. On evaluation in the emergency room, she was chest pain free. Her vital signs were stable. Her hemoglobin was 6.5, potassium 3.6. Troponin is 0.058. Natriuretic peptide level is greater than 35,000. She is now admitted for further evaluation and care. PAST MEDICAL HISTORY: Significant for history of hypertension, hypertensive heart disease, history of polysubstance abuse, COPD, history of dementia, end-stage renal disease on chronic hemodialysis, and history of substance abuse. CURRENT MEDICATIONS: Reconciled and reviewed. ALLERGIES: Include morphine, penicillin, and sulfa. FAMILY HISTORY: Noncontributory. SOCIAL HISTORY: There is no known history of alcohol. The patient has a history of smoking and substance abuse. REVIEW OF SYSTEMS: GENERAL: No fevers or chills. HEENT: No headaches or visual changes. CARDIOPULMONARY: Positive chest pain. Positive shortness of breath. GASTROINTESTINAL: No nausea or vomiting. GENITOURINARY: No urgency or frequency. MUSCULOSKELETAL: No joint pain or swelling. NEUROLOGIC: No evidence of seizures. PHYSICAL EXAMINATION: VITAL SIGNS: Temperature 98.3, pulse 53, respirations 16, blood pressure 149/90. GENERAL: The patient is well developed, no apparent distress. HEART: Regular rate and rhythm. LUNGS: Clear. The patient has a PermCath in the right upper chest. ABDOMEN: Soft, nontender, nondistended. EXTREMITIES: Without clubbing, cyanosis or edema. LABORATORY DATA: White count 5, hemoglobin 6.5, hematocrit 21, platelets 165. Sodium 140, potassium was 3.6, BUN 63, 5.2. Troponin 0.058. Chest x-ray showed pulmonary vascular congestion. ASSESSMENT: This is an elderly female with a history of end-stage renal disease, hypertension, COPD, recent history of COVID-19 pneumonia. COVID-19 pneumonia now recovered, admitted with complaints of chest pain and shortness of breath secondary to volume overload from missed dialysis. PLAN: Renal and Cardiology consultations. Hemodialysis per renal. Titrate antihypertensive regimen. Titrate troponin. Psychiatric consultation to assist with the patient's agitation. DVT and stress ulcer prophylaxis. Check stool for occult blood and iron panel. Consider GI consultation. Laurent Epperson M.D. DR: YASMIN JOB#: [id number] CC:
[2020-04-12 09:30] LABS: ANION GAP 9 mmol/L (5-15); BLOOD UREA NITROGEN 35 mg/dL (7-18); CARBON DIOXIDE 28 MMOL/L (21-32); CHLORIDE 104 MMOL/L (98-107); CREATININE 3.6 MG/DL (0.55-1.30); FERRITIN 534 NG/ML (8-388); POTASSIUM 3.8 MMOL/L (3.5-5.1); SODIUM 141 MMOL/L (136-145)
[2020-04-12 09:32] LABS: % IRON SATURATION 31 % (15-50); IRON 58 ug/dL (50-175); TOTAL IRON BINDING CAPACITY 186 ug/dL (250-450)
[2020-04-12] MEDS ORDERED: SEROQUEL25 MG ORAL (09:46)
[2020-04-12] MEDS ORDERED: CARVEDILOL25 MG ORAL (09:46)
[2020-04-12] MEDS ORDERED: VITAMIN B122500 MCG PO (09:46)
[2020-04-12] MEDS ORDERED: ATIVAN1 MG ORAL (09:46)
[2020-04-12] MEDS ORDERED: VENTOLIN HFA18 GM INH (09:46)
[2020-04-12] MEDS ORDERED: MILK OF MA400 MG/51 ORAL (09:46)
[2020-04-12] MEDS ORDERED: MIRALAX17 G2 ORAL (09:46)
[2020-04-12] MEDS ORDERED: NEPHROVITE1 TAB ORAL (09:46)
[2020-04-12] MEDS: Docusate 100mg cap ORAL SCH ×2 (10:03→17:56)
[2020-04-12] MEDS: Spironolactone 25mg tab ORAL SCH (10:03)
[2020-04-12] MEDS: Benazepril 10mg tab ORAL SCH ×2 (10:04→20:16)
[2020-04-12] MEDS: Nephrovite tab (Rena-Vite) ORAL SCH (10:04)
[2020-04-12] MEDS: Carvedilol 25mg Tab ORAL SCH ×2 (10:05→17:56)
[2020-04-12] MEDS: Vitamin B-12 500mcg tab ORAL SCH (10:05)
[2020-04-12] MEDS: Furosemide 40mg tab ORAL SCH (10:05)
[2020-04-12] MEDS: Heparin 5000 units/ml inj SUBQ SCH ×2 (10:13→17:58)
--- NOTE | 2020-04-12 10:13 | Nephrology Progress Note ---
Assessment/Plan Plan #chest pain r/o ACS #ESRD on HD #acute on chronic anemia #Accelerated HTN #dementia with behavioural disturbance - next HD tomorrow - check iron panel-> adequate - resume epo - check PTH/vitamin D - monitor mag and phos daily while inpatient - cardiology eval - resume HALL DIRECTOR antihypertensive Time spent 65 min Subjective ROS Limited/Unobtainable: No Constitutional: Reports: weakness HEENT: Denies: no symptoms, eye pain, blurred vision, tearing, double vision, ear pain, ear discharge, nose pain, nose congestion, throat pain, throat swelling, mouth pain, mouth swelling, other Genitourinary: Denies: no symptoms, burning, discharge, frequency, flank pain, hematuria, incontinence, pain, urgency, other Neurologic/Psychiatric: Denies: no symptoms, anxiety, depressed, emotional problems, headache, numbness, paresthesia, pre-existing deficit, seizure, tingling, tremors, weakness, other Subjective s/p HD last night with 2l UF hemoglobin 7.7 Objective Objective Last 24 Hour Vital Signs Date Time Temp Pulse Resp B/P (MAP) Pulse Ox O2 Delivery O2 Flow Rate FiO2 04/12/20 05:04 145/85 04/12/20 04:00 75 04/12/20 04:00 98.1 81 20 145/85 (105) 95 04/12/20 00:00 96 04/12/20 00:00 97.3 79 21 170/90 (116) 90 04/11/20 23:45 160/85 04/11/20 21:00 Room Air 04/11/20 20:38 170/80 04/11/20 20:38 170/80 04/11/20 20:00 85 04/11/20 20:00 98.3 82 20 170/89 (116) 93 04/11/20 16:00 64 04/11/20 16:00 98.8 65 18 161/71 (101) 91 04/11/20 12:00 76 04/11/20 11:30 99.3 70 18 117/72 (87) 92 04/11/20 11:14 Room Air 04/11/20 10:25 98.0 89 16 161/86 96 Room Air Intake and Output 04/11/20 04/12/20 19:00 07:00 Intake Total 120 ml 500 ml Output Total 2400 ml Balance -2280 ml 500 ml Intake Oral 120 ml 500 ml Output Urine Total 400 ml Other 2000 ml # Voids 2 2 # Bowel Movements 1 Laboratory Tests 04/12/20 04:00: White Blood Count 6.8, Red Blood Count 2.81L, Hemoglobin 7.7L, Hematocrit 24.8L, Mean Corpuscular Volume 88, Mean Corpuscular Hemoglobin 27.5, Mean Corpuscular Hemoglobin Concent 31.2L, Red Cell Distribution Width 14.3, Platelet Count 147L, Mean Platelet Volume 7.7, Neutrophils (%) (Auto) , Lymphocytes (%) (Auto) , Monocytes (%) (Auto) , Eosinophils (%) (Auto) , Basophils (%) (Auto) 04/12/20 08:25: Sodium Level 141, Potassium Level 3.8, Chloride Level 104, Carbon Dioxide Level 28, Anion Gap 9, Blood Urea Nitrogen 35H, Creatinine 3.6H, Estimat Glomerular Filtration Rate 12.4, Glucose Level 87, Calcium Level 8.0L, Calcium (Send out) [Pending], Phosphorus Level 4.0, Magnesium Level 1.9, Iron Level 58, Total Iron Binding Capacity 186L, Percent Iron Saturation 31, Unsaturated Iron Binding 128, Ferritin 534H, Vitamin D 25-Hydroxy [Pending], 25-Hydroxy Vitamin D2 [Pending], 25-Hydroxy Vitamin D3 [Pending], Parathyroid Hormone (Intact) [Pending] Height (Feet): 5 Height (Inches): 7.00 Weight (Pounds): 115 General Appearance: no apparent distress, alert EENT: PERRL/EOMI, normal ENT inspection Neck: non-tender, normal alignment Cardiovascular: normal peripheral pulses, normal rate, regular rhythm Respiratory/Chest: chest wall non-tender, lungs clear Abdomen: normal bowel sounds, non tender Extremities: normal range of motion Neurologic: alert, oriented x 3 Ace Munroe M.D. Apr 12, 2020 10:13
[2020-04-12] MEDS: Aspirin Baby 81mg ORAL SCH (10:14)
[2020-04-12] MEDS: HydrALAZINE 25mg tab ORAL SCH ×2 (10:14→20:17)
[2020-04-12 11:40] VITALS: BP 164/66
--- NOTE | 2020-04-12 12:20 | NUR ---
NURSE NOTES: tried to connect pt back to bus driver/monitor pt started yelling and hitting. pt is refusing bus driver/monitor.
--- NOTE | 2020-04-12 13:55 | NUR ---
Food Court Team Member: pt sleeping, tried to reconnect cardiac leads to pt but she woke up yelling "im sleepy let me sleep leave me along". Pt does not want to be touched. And asked to be left alone. will continue to monitor her and try to put monitor back
[2020-04-12 16:00] VITALS: BP 163/67
--- NOTE | 2020-04-12 19:17 | Psychiatry Consultation ---
Psychiatry Consultation Psychiatry Consultation Chief Complaint: General Complaint History of Present Illness: 74-year-old female with a history of dementia with psychotic features who has been admitted to the hospital for medical stabilization. Patient has a history of CHF as well as cocaine abuse. She presented with disorganized speech and behavior, easily agitated. Patient has poor memory, unable to be engaged. She is having episodes of agitation. Allergies: Coded Allergies: MORPHINE (Unverified Allergy, Unknown, 04/11/20) PENICILLINS (Unverified Allergy, Unknown, 04/11/20) SULFA (SULFONAMIDE ANTIBIOTICS) (Verified Allergy, Unknown, 02/24/20) Past Psychiatric History: Anxiety, agitation, depression. Medical History: Anemia, end-stage renal failure, head injury. Substance Abuse History: Has a history of cocaine abuse. Medication History Scheduled Ascorbic Acid* (Vitamin C*), 250 MG ORAL DAILY, (Reported) Aspirin* (Aspirin*), 81 MG ORAL DAILY, (Reported) Atorvastatin Calcium* (Lipitor*), 20 MG ORAL BEDTIME, (Reported) Benazepril Hcl* (Benazepril Hcl*), 20 MG ORAL EVERY 12 HOURS, (Reported) Carvedilol* (Carvedilol*), 25 MG ORAL EVERY 12 HOURS, (Reported) Cyanocobalamin (Vitamin B-12) (Vitamin B12), 1,000 MCG PO DAILY, (Reported) Digoxin* (Digoxin*), 0.25 MG ORAL every 48 hours, (Reported) Docusate Sodium* (Docusate Sodium*), 100 MG ORAL TWICE A DAY, (Reported) Ferrous Sulfate* (Ferrous Sulfate*), 325 MG ORAL DAILY, (Reported) Furosemide* (Lasix*), 40 MG ORAL DAILY, (Reported) Hydralazine Hcl* (Hydralazine Hcl*), 25 MG ORAL EVERY 12 HOURS, (Reported) Lorazepam* (Ativan*), 1 MG ORAL BID, (Reported) Polyethylene Glycol 3350* (Miralax*), 17 GM ORAL DAILY, (Reported) Quetiapine Fumarate* (Seroquel*), 25 MG ORAL MWF, (Reported) Spironolactone* (Aldactone*), 25 MG ORAL DAILY, (Reported) Topiramate* (Topamax*), 25 MG ORAL TWICE A DAY, (Reported) Vitamin B Cmplx/Vit C/Folic AC (Nephro-Leila Tablet), 1 TAB ORAL DAILY, (Reported) Scheduled PRN Albuterol Sulfate (Ventolin Hfa), 2 PUFFS INH EVERY 6 HOURS PRN for COPD, (Reported) Clonidine Hcl* (Catapres*), 0.1 MG ORAL EVERY 6 HOURS PRN for SBP>160, (Reported) Magnesium Hydroxide* (Milk Of Magnesia*), 30 ML ORAL DAILY PRN for Constipation, (Reported) Tramadol Hcl* (Ultram*), 50 MG ORAL Q6H PRN for For Pain, (Reported) Objective Data Height (Feet): 5 Height (Inches): 7.00 Weight (Pounds): 115 Additional Comments: MENTAL STATUS EXAMINATION: Patient is awake, disoriented to date and situation. Mood is agitated. Affect is flat. Thought process, disorganized. Thought content, there is no suicidal or homicidal ideation. Cognition is impaired. Insight and judgment is impaired. Assessment/Plan Assessment/Plan: ASSESSMENT: [place] I Psychotic disorder. Cognitive impairment. Cocaine abuse. [place] II Deferred. [place] III As above. [place] IV Low. [place] V 20. PLAN: 1. We will start the patient on antipsychotics. 2. Discussed the case with the nurse. London Mckeon MD Apr 12, 2020 19:17
--- NOTE | 2020-04-12 19:58 | NUR ---
NURSE HAND-OFF REPORT: Important Events on Shift:[]pt continuously taking off restraints, and trying to get up Patient Status: []Full code Diet: []renal mech. chop Pending Orders: []stool collection Pending Results/Labs:[] Pending MD notification:[] Latest Vital Signs: Temperature 98.1 , Pulse 73 , B/P 163 /67 , Respiratory Rate 18 , O2 SAT 94 , Room Air, O2 Flow Rate 2.0 . Vital Sign Comment: [] EKG Rhythm: SR with 1st AVB, Rhythm change?: N MD Notified?: - MD Response: Latest Mcconnell Fall Score: 50 Fall Risk: High Risk Safety Measures: Call light Within Reach, Bed Alarm Zone 2, Side Rails Side Rails x3, Bed position Low and Locked. Fall Precautions: y Yellow Socks y Yellow Gown y Door Sign y Patient Fall Education y Report given to []. Christopher Hurtado/MARY
[2020-04-12 20:00] VITALS: BP 149/86
--- NOTE | 2020-04-12 20:00 | NUR ---
NURSE NOTES: Patient received from MARY Garcia. Patient is A/O x 1. Patient is very agitated and attempts to get out of bed. Patient is aggressive and combative. Patient is noted to have bilateral wrist restraints on with no signs of injury. Patient is on 2 L Nasal cannula. Patient is noted to be able to stand up but needs assistance. Patient is asking for pain medication, will tend to her needs. Patient has a right chest permacath. Bed is in the lowest position and locked, call light within reach. Will continue to monitor.
[2020-04-12] MEDS: Atorvastatin 20mg tab ORAL SCH (20:17)
[2020-04-12] MEDS: Epoetin Alfa-EPBX(ESRD on dialysis)4000 units/ml vial SUBQ SCH (21:00)
[2020-04-12] MEDS: Haloperidol 5mg/ml Inj IM PRN (21:01)
--- NOTE | 2020-04-12 22:50 | NUR ---
NURSE NOTES: Called and notified Dr. Mckeon that patient is combative and still aggressive.
[2020-04-12] MEDS ORDERED: LORazepam Inj 2mg/ml 1ml IV SCH (23:00)
[2020-04-12] MEDS ORDERED: DiphenhydrAMINE 50mg/ml Inj IM SCH (23:00)
[2020-04-13] VITALS: BP 138/72
--- NOTE | 2020-04-13 00:23 | Cardiology Progress Note ---
Subjective DATE OF SERVICE: Apr 12, 2020 S/P HD/UF (2 liter) last nite No c/o chest pain; troponin pending Remains aggressive and combative with staff No apparent SOB. Objective Last 24 Hour Vital Signs Date Time Temp Pulse Resp B/P (MAP) Pulse Ox O2 Delivery O2 Flow Rate FiO2 04/12/20 20:17 149/86 04/12/20 20:16 149/86 04/12/20 20:00 100.0 76 19 149/86 (107) 98 04/12/20 20:00 78 04/12/20 17:56 163/67 04/12/20 17:56 73 163/67 04/12/20 16:00 98.1 73 18 163/67 (99) 94 04/12/20 15:28 67 04/12/20 12:08 164/66 04/12/20 12:00 66 04/12/20 11:40 97.4 69 18 164/66 (98) 91 04/12/20 10:14 179/85 04/12/20 10:05 75 179/85 04/12/20 10:04 179/85 04/12/20 09:00 Nasal Cannula 2.0 04/12/20 08:00 75 04/12/20 08:00 97.6 75 20 149/85 (106) 90 04/12/20 05:04 145/85 04/12/20 04:00 75 04/12/20 04:00 98.1 81 20 145/85 (105) 95 HEENT: normal ENT inspection RHYTHM: NSR, PACs LUNGS: lungs clear bilaterally CARDIAC: regular rhythm, normal S1 and S2, gallop/S4 ABDOMEN: normal bowel sounds, non tender, soft, no organomegaly EXTREMITIES: normal range of motion, normal capillary refill, No edema Laboratory Tests Test 04/12/20 04:00 04/12/20 08:25 White Blood Count 6.8 K/UL (4.8-10.8) Red Blood Count 2.81 M/UL (4.20-5.40) L Hemoglobin 7.7 G/DL (12.0-16.0) L Hematocrit 24.8 % (37.0-47.0) L Mean Corpuscular Volume 88 FL (80-99) Mean Corpuscular Hemoglobin 27.5 PG (27.0-31.0) Mean Corpuscular Hemoglobin Concent 31.2 G/DL (32.0-36.0) L Red Cell Distribution Width 14.3 % (11.6-14.8) Platelet Count 147 K/UL (150-450) L Mean Platelet Volume 7.7 FL (6.5-10.1) Neutrophils (%) (Auto) % (45.0-75.0) Lymphocytes (%) (Auto) % (20.0-45.0) Monocytes (%) (Auto) % (1.0-10.0) Eosinophils (%) (Auto) % (0.0-3.0) Basophils (%) (Auto) % (0.0-2.0) Sodium Level 141 MMOL/L (136-145) Potassium Level 3.8 MMOL/L (3.5-5.1) Chloride Level 104 MMOL/L (98-107) Carbon Dioxide Level 28 MMOL/L (21-32) Anion Gap 9 mmol/L (5-15) Blood Urea Nitrogen 35 mg/dL (7-18) H Creatinine 3.6 MG/DL (0.55-1.30) H Estimat Glomerular Filtration Rate 12.4 mL/min (>60) Glucose Level 87 MG/DL (74-106) Calcium Level 8.0 MG/DL (8.5-10.1) L Calcium (Send out) Pending Phosphorus Level 4.0 MG/DL (2.5-4.9) Magnesium Level 1.9 MG/DL (1.8-2.4) Iron Level 58 ug/dL (50-175) Total Iron Binding Capacity 186 ug/dL (250-450) L Percent Iron Saturation 31 % (15-50) Unsaturated Iron Binding 128 ug/dL (112-346) Ferritin 534 NG/ML (8-388) H Vitamin D 25-Hydroxy Pending 25-Hydroxy Vitamin D2 Pending 25-Hydroxy Vitamin D3 Pending Parathyroid Hormone (Intact) Pending Assessment/Plan Assessment/Plan Missed dialysis session Acute coronary syndrome/possible NSTEMI Hx cocaine abuse Ac/chronic systolic/diastolic CHF Pulmonary hypertension Permanent pacemaker Degenerative valve disease Metabolic encephalopathy ESRD Repeat troponin Maximize anti-failure and antiHTN meds HD/UF Attempting to get data on pacemaker Antiplt rx Sourav Montejo MD Apr 13, 2020 00:23
[2020-04-13 04:00] VITALS: BP 154/63
--- NOTE | 2020-04-13 07:24 | General Progress Note ---
Subjective ROS Limited/Unobtainable: Yes Constitutional: Reports: malaise HEENT: Reports: no symptoms Cardiovascular: Reports: no symptoms Respiratory: Reports: no symptoms Gastrointestinal/Abdominal: Reports: poor appetite, poor fluid intake Genitourinary: Reports: no symptoms Neurologic/Psychiatric: Reports: anxiety, emotional problems Endocrine: Reports: no symptoms Hematologic/Lymphatic: Reports: anemia Allergies: Coded Allergies: MORPHINE (Unverified Allergy, Unknown, 04/11/20) PENICILLINS (Unverified Allergy, Unknown, 04/11/20) SULFA (SULFONAMIDE ANTIBIOTICS) (Verified Allergy, Unknown, 02/24/20) Subjective no events. remains agitated and aggressive. refusing meds unless narcotic. labs pending. no improvement with haldol. slept well after getting iv ativan. poor pos. no reports of fevers or cough. Objective Last 24 Hour Vital Signs Date Time Temp Pulse Resp B/P (MAP) Pulse Ox O2 Delivery O2 Flow Rate FiO2 04/13/20 06:28 148/87 04/13/20 04:00 98.7 68 18 154/63 (93) 100 04/13/20 04:00 67 04/13/20 03:27 70 18 130/68 97 04/13/20 02:57 70 20 152/70 98 04/13/20 00:24 138/72 04/13/20 00:00 69 04/13/20 00:00 97.1 70 19 138/72 (94) 97 04/12/20 21:00 Nasal Cannula 2.0 04/12/20 20:17 149/86 04/12/20 20:16 149/86 04/12/20 20:00 100.0 76 19 149/86 (107) 98 04/12/20 20:00 78 04/12/20 17:56 163/67 04/12/20 17:56 73 163/67 04/12/20 16:00 98.1 73 18 163/67 (99) 94 04/12/20 15:28 67 04/12/20 12:08 164/66 04/12/20 12:00 66 04/12/20 11:40 97.4 69 18 164/66 (98) 91 04/12/20 10:14 179/85 04/12/20 10:05 75 179/85 04/12/20 10:04 179/85 04/12/20 09:00 Nasal Cannula 2.0 04/12/20 08:00 75 04/12/20 08:00 97.6 75 20 149/85 (106) 90 l Intake and Output 04/12/20 04/13/20 19:00 07:00 Intake Total 1500 ml 2140 ml Output Total 1 ml Balance 1500 ml 2139 ml Intake Oral 1500 ml 2140 ml Output Urine Total 1 ml # Voids 3 6 Laboratory Tests 04/12/20 08:25: Sodium Level 141, Potassium Level 3.8, Chloride Level 104, Carbon Dioxide Level 28, Anion Gap 9, Blood Urea Nitrogen 35H, Creatinine 3.6H, Estimat Glomerular Filtration Rate 12.4, Glucose Level 87, Calcium Level 8.0L, Calcium (Send out) [Pending], Phosphorus Level 4.0, Magnesium Level 1.9, Iron Level 58, Total Iron Binding Capacity 186L, Percent Iron Saturation 31, Unsaturated Iron Binding 128, Ferritin 534H, Vitamin D 25-Hydroxy [Pending], 25-Hydroxy Vitamin D2 [Pending], 25-Hydroxy Vitamin D3 [Pending], Parathyroid Hormone (Intact) [Pending] Height (Feet): 5 Height (Inches): 7.00 Weight (Pounds): 115 General Appearance: WD/WN, lethargic, confused EENT: normal ENT inspection Neck: normal alignment, supple Cardiovascular: normal rate, regular rhythm Respiratory/Chest: chest wall non-tender, lungs clear, normal breath sounds Abdomen: normal bowel sounds, non tender, soft, no organomegaly Edema: no edema noted Arm (L), no edema noted Arm (R), no edema noted Leg (L), no edema noted Leg (R) 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 grossly normal, alert, responsive, disoriented Skin: normal pigmentation Assessment/Plan Problem List: (1) Pneumonia due to COVID-19 virus ICD Codes: U07.1 - COVID-19; J12.82 - Pneumonia due to coronavirus disease 2019 SNOMED: 008325242589400562 (2) Anemia ICD Codes: D64.9 - Anemia, unspecified SNOMED: 458410302 (3) Toxic metabolic encephalopathy ICD Codes: G92 - Toxic encephalopathy SNOMED: 051144544 (4) Hypertension ICD Codes: I10 - Essential (primary) hypertension SNOMED: 34392763, 24832396142823 (5) Noncompliance ICD Codes: Z91.19 - Patient's noncompliance with other medical treatment and regimen SNOMED: 1053302, 9902376 (6) Acute exacerbation of CHF (congestive heart failure) ICD Codes: I50.9 - Heart failure, unspecified SNOMED: 606800320, 53577420315974 Status: stable, not improved Assessment/Plan: added iv ativan for severe agitation psych follow up check iron panel await stool ob iron and epogen monitor h/h follow up pending labs gi eval if stool ob positive compliance stressed repeat covid needed for dc dvt and stress ulcer prophylaxis skin care HD per renal ULaurent le MD Apr 13, 2020 07:24
--- NOTE | 2020-04-13 07:41 | NUR ---
NURSE HAND-OFF REPORT: Important Events on Shift:[Patient has a scheduled dialysis, [facility] contacted and made aware. Patient has been agitated all night. Dr. Epperson and Dr. Mckeon aware. Patient is at risk for falls.] Patient Status: [Stable] Diet: [Renal Mechanical soft diet] Pending Orders: [] Pending Results/Labs:[] Pending MD notification:[] Latest Vital Signs: Temperature 98.7 , Pulse 68 , B/P 148 /87 , Respiratory Rate 18 , O2 SAT 100 , Room Air, O2 Flow Rate 2.0 . Vital Sign Comment: [] EKG Rhythm: SR with 1st AVB, BBB Rhythm change?: N MD Notified?: - MD Response: Latest Mcconnell Fall Score: 50 Fall Risk: High Risk Safety Measures: Call light Within Reach, Bed Alarm Zone 2, Side Rails Side Rails x3, Bed position Low and Locked. Fall Precautions: Yellow Socks Yellow Gown Door Sign Patient Fall Education Report given to [MARY Garcia].
[2020-04-13 08:00] VITALS: BP 176/85
--- NOTE | 2020-04-13 08:12 | NUR ---
NURSE NOTES: pt in bed continuously taking restrains off. Pt on restrains right now. Pt had breakfast this morning. Bed is locked and in lowest position. Side rails up x4, bed alarm on. pt on pvc monitor no signs of cardia or respiratory distress. Will continue to monitor pt.
[2020-04-13] MEDS: Benazepril 10mg tab ORAL SCH ×2 (09:00→21:09)
[2020-04-13] MEDS: Carvedilol 25mg Tab ORAL SCH ×2 (09:00→18:37)
[2020-04-13] MEDS: HydrALAZINE 25mg tab ORAL SCH ×2 (09:00→21:08)
--- NOTE | 2020-04-13 09:27 | Nephrology Progress Note ---
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 Time spent 65 min Subjective ROS Limited/Unobtainable: No Constitutional: Reports: weakness HEENT: Denies: no symptoms, eye pain, blurred vision, tearing, double vision, ear pain, ear discharge, nose pain, nose congestion, throat pain, throat swelling, mouth pain, mouth swelling, other Genitourinary: Denies: no symptoms, burning, discharge, frequency, flank pain, hematuria, incontinence, pain, urgency, other Neurologic/Psychiatric: Denies: no symptoms, anxiety, depressed, emotional problems, headache, numbness, paresthesia, pre-existing deficit, seizure, tingling, tremors, weakness, other Subjective no acute events BP elevated at times plan for HD today Objective Objective Last 24 Hour Vital Signs Date Time Temp Pulse Resp B/P (MAP) Pulse Ox O2 Delivery O2 Flow Rate FiO2 04/13/20 08:00 98.1 68 18 176/85 (115) 100 04/13/20 08:00 Nasal Cannula 2.0 04/13/20 06:28 148/87 04/13/20 04:00 98.7 68 18 154/63 (93) 100 04/13/20 04:00 67 04/13/20 03:27 70 18 130/68 97 04/13/20 02:57 70 20 152/70 98 04/13/20 00:24 138/72 04/13/20 00:00 69 04/13/20 00:00 97.1 70 19 138/72 (94) 97 04/12/20 21:00 Nasal Cannula 2.0 04/12/20 20:17 149/86 04/12/20 20:16 149/86 04/12/20 20:00 100.0 76 19 149/86 (107) 98 04/12/20 20:00 78 04/12/20 17:56 163/67 04/12/20 17:56 73 163/67 04/12/20 16:00 98.1 73 18 163/67 (99) 94 04/12/20 15:28 67 04/12/20 12:08 164/66 04/12/20 12:00 66 04/12/20 11:40 97.4 69 18 164/66 (98) 91 04/12/20 10:14 179/85 04/12/20 10:05 75 179/85 04/12/20 10:04 179/85 l Intake and Output 04/12/20 04/13/20 19:00 07:00 Intake Total 1500 ml 2140 ml Output Total 1 ml Balance 1500 ml 2139 ml Intake Oral 1500 ml 2140 ml Output Urine Total 1 ml # Voids 3 6 Height (Feet): 5 Height (Inches): 7.00 Weight (Pounds): 115 Objective General Appearance: no apparent distress, alert EENT: PERRL/EOMI, normal ENT inspection Neck: non-tender, normal alignment Cardiovascular: normal peripheral pulses, normal rate, regular rhythm Respiratory/Chest: chest wall non-tender, lungs clear Abdomen: normal bowel sounds, non tender Extremities: normal range of motion Neurologic: alert, oriented x 3 Ace Munroe M.D. Apr 13, 2020 09:27
[2020-04-13] MEDS: LORazepam Inj 2mg/ml 1ml IV PRN ×2 (10:10→15:06)
[2020-04-13] MEDS: Heparin 5000 units/ml inj SUBQ SCH ×2 (10:12→18:36)
[2020-04-13] MEDS: Aspirin Baby 81mg ORAL SCH (10:12)
[2020-04-13] MEDS: Docusate 100mg cap ORAL SCH ×2 (10:12→18:37)
[2020-04-13] MEDS: Nephrovite tab (Rena-Vite) ORAL SCH (10:13)
[2020-04-13] MEDS: Furosemide 40mg tab ORAL SCH (10:13)
[2020-04-13] MEDS: Vitamin B-12 500mcg tab ORAL SCH (10:14)
[2020-04-13] MEDS: Spironolactone 25mg tab ORAL SCH (10:16)
[2020-04-13 11:07] LABS: HEMATOCRIT 25.6 % (37.0-47.0); HEMOGLOBIN 7.9 G/DL (12.0-16.0); MEAN CORPUSCULAR VOLUME 90 FL (80-99); PLATELET COUNT 159 K/UL (150-450); RED BLOOD COUNT 2.85 M/UL (4.20-5.40); RED CELL DISTRIBUTION WIDTH 14.7 % (11.6-14.8); WHITE BLOOD COUNT 7.5 K/UL (4.8-10.8)
[2020-04-13 11:28] LABS: % IRON SATURATION 25 % (15-50); IRON 39 ug/dL (50-175); TOTAL IRON BINDING CAPACITY 158 ug/dL (250-450)
[2020-04-13 11:29] LABS: CALCIUM 7.9 MG/DL (8.5-10.1); CARBON DIOXIDE 27 MMOL/L (21-32); CREATININE 4.4 MG/DL (0.55-1.30)
[2020-04-13 11:58] LABS: BLOOD UREA NITROGEN 52 mg/dL (7-18); CHLORIDE 105 MMOL/L (98-107); POTASSIUM 4.4 MMOL/L (3.5-5.1); SODIUM 141 MMOL/L (136-145)
[2020-04-13 12:00] VITALS: BP 156/70
[2020-04-13] MEDS: traMADol 50mg tab ORAL PRN ×2 (13:10→13:13)
--- NOTE | 2020-04-13 13:13 | NUR ---
NURSE NOTES: PT woke up yelling for pain medication. Medication was given but pt started to get mad and yelled and spit it out. Medication was waisted with Danita charge nurse.
[2020-04-13 16:00] VITALS: BP 173/85
--- NOTE | 2020-04-13 18:44 | NUR ---
NURSE NOTES: ok to take pt off isolation/ doct [place]
--- NOTE | 2020-04-13 19:30 | NUR ---
NURSE NOTES: Receive a report from MARY Garcia.
--- NOTE | 2020-04-13 19:35 | NUR ---
NURSE NOTES: Pt is asleep covering face with the blanket. Open the blanket and saying hi but pt yells, "Leave me alone." No acute distress noted. Perma catheter on right upper chest site intact. On restraints wrists bilateral. Motor, sensory, skin intact. Call light within reach. On bed alarm with lowest position and locked. Will continue to monitor closely.
--- NOTE | 2020-04-13 19:55 | NUR ---
NURSE HAND-OFF REPORT: Important Events on Shift:[]PT DIALYSIS DONE 3.5l OUT, PT VERY AGITATED AT TIMES, ON RESTRAINS AT THE PRESENT TIME. PT DOES TAKE RESTRAINS OFF Patient Status: []FULL Diet: []RENAL MECH. SOFT Pending Orders: []ob STOOL COLLECTION PT HAS NOT HAD bm AND REFUSED MILK OF MAG Pending Results/Labs:[] Pending MD notification:[] Latest Vital Signs: Temperature 97.8 , Pulse 61 , B/P 173 /85 , Respiratory Rate 18 , O2 SAT 98 , Room Air, O2 Flow Rate 2.0 . Vital Sign Comment: [] EKG Rhythm: SR w/BBB V PACED Rhythm change?: N MD Notified?: - MD Response: Latest Mcconnell Fall Score: 50 Fall Risk: High Risk Safety Measures: Call light Within Reach, Bed Alarm Zone 2, Side Rails Side Rails x3, Bed position Low and Locked. Fall Precautions: Y Yellow Socks Y Yellow Gown Y Door Sign Patient Fall Education Report given to [].[place]/ RN
[2020-04-13 20:00] VITALS: BP 161/63
[2020-04-13] MEDS: Atorvastatin 20mg tab ORAL SCH (21:08)
--- NOTE | 2020-04-13 22:53 | Psychiatric Progress Note ---
Psychiatry Progress Note Psychiatry Progress Note Medications Current Medications Medications (Trade) Dose Ordered Sig/Sugey Route PRN Reason Start Time Stop Time Status Last Admin Dose Admin Albuterol Sulfate (Proventil MDI) 2 puff EVERY 6 HOURS PRN INH Shortness of Breath 04/11/20 12:15 07/10/20 12:14 Aspirin (ASA) 81 mg DAILY ORAL 04/12/20 09:00 05/27/20 08:59 04/13/20 10:12 Atorvastatin Calcium (Lipitor) 20 mg BEDTIME ORAL 04/11/20 21:00 07/10/20 20:59 04/13/20 21:08 Benazepril HCl (Lotensin) 20 mg EVERY 12 HOURS ORAL 04/11/20 21:00 05/11/20 20:59 04/13/20 21:09 Carvedilol (Coreg) 25 mg BID ORAL 04/11/20 18:00 05/11/20 17:59 04/13/20 18:37 Clonidine HCl (Catapres Tab) 0.1 mg EVERY 6 HOURS ORAL 04/11/20 18:00 07/10/20 17:59 04/13/20 18:37 Cyanocobalamin (Vitamin B-12) 1,000 mcg DAILY ORAL 04/12/20 09:00 05/12/20 08:59 04/13/20 10:14 Digoxin (Lanoxin) 0.25 mg EVERY OTHER DAY ORAL 04/13/20 09:00 07/12/20 08:59 04/13/20 10:14 Docusate Sodium (Colace) 100 mg TWICE A DAY ORAL 04/11/20 18:00 05/11/20 17:59 04/13/20 18:37 Epoetin Mychal (Epoetin Mychal(ESRD on dialysis)) 4,000 unit SUN-SUN-SUN SUBQ 04/12/20 21:00 07/11/20 20:59 04/12/20 21:00 Ferrous Sulfate (Feosol) 325 mg DAILY ORAL 04/12/20 09:00 07/11/20 08:59 04/13/20 10:12 Furosemide (Lasix) 40 mg DAILY ORAL 04/12/20 09:00 05/12/20 08:59 04/13/20 10:13 Haloperidol Lactate (Haldol) 5 mg Q6H PRN IM Agitation 04/11/20 19:30 05/26/20 19:29 04/12/20 21:01 Heparin Sodium (Porcine) (Heparin 5000 units/ml) 5,000 units BID SUBQ 04/11/20 18:00 05/26/20 17:59 04/13/20 18:36 Hydralazine HCl (Apresoline) 25 mg EVERY 12 HOURS ORAL 04/11/20 21:00 07/10/20 20:59 04/13/20 21:08 Lorazepam (Ativan 2mg/ml 1ml) 2 mg Q4H PRN IV For Anxiety 04/13/20 07:30 04/20/20 07:29 04/13/20 15:06 Magnesium Hydroxide (Mom) 30 ml HSPRN PRN ORAL Constipation 04/11/20 12:15 05/11/20 12:14 Polyethylene Glycol (Miralax) 17 gm DAILY PRN ORAL Constipation 04/11/20 12:15 05/11/20 12:14 Quetiapine Fumarate (SEROqueL) 50 mg Q12HR ORAL 04/11/20 21:00 05/26/20 20:59 04/13/20 21:08 Spironolactone (Aldactone) 25 mg DAILY ORAL 04/12/20 09:00 05/12/20 08:59 04/13/20 10:16 Tramadol HCl (Ultram) 50 mg Q6H PRN ORAL For Pain 04/11/20 12:30 04/18/20 12:29 04/12/20 19:45 Vitamin B Complex/ Vit C/Folic Acid (Nephrovite) 1 tab DAILY ORAL 04/11/20 14:00 05/11/20 13:59 04/13/20 10:13 Neurological/Psychiatric: Reports: anxiety, emotional problems Allergies: Coded Allergies: MORPHINE (Unverified Allergy, Unknown, 04/11/20) PENICILLINS (Unverified Allergy, Unknown, 04/11/20) SULFA (SULFONAMIDE ANTIBIOTICS) (Verified Allergy, Unknown, 02/24/20) Objective Data Height (Feet): 5 Height (Inches): 7.00 Weight (Pounds): 115 General Appearance: WD/WN, lethargic, confused Additional Comments: Patient is awake, disoriented to date and situation. Mood is agitated. Affect is flat. Thought process, disorganized. Thought content, there is no suicidal or homicidal ideation. Cognition is impaired. Insight and judgment is impaired. Assessment/Plan Status: stable, not improved Assessment/Plan: [place] I Psychotic disorder. Cognitive impairment. Cocaine abuse. [place] II Deferred. [place] III As above. [place] IV Low. [place] V 20. PLAN: 1. We will start the patient on antipsychotics. 2. Discussed the case with the nurse. London Mckeon MD Apr 13, 2020 22:53
[2020-04-14] VITALS: BP 153/72
--- NOTE | 2020-04-14 01:28 | Cardiology Progress Note ---
Subjective DATE OF SERVICE: Apr 13, 2020 S/P HD/UF (2 liter) 04/11 No c/o chest pain; troponins unchg'd at 0.058 Remains aggressive and combative with staff No apparent SOB. BP elevations/spikes at times. Objective Last 24 Hour Vital Signs Date Time Temp Pulse Resp B/P (MAP) Pulse Ox O2 Delivery O2 Flow Rate FiO2 04/14/20 00:01 153/73 04/14/20 00:00 74 04/14/20 00:00 98.3 74 18 153/72 (99) 98 04/13/20 21:09 161/63 04/13/20 21:08 161/63 04/13/20 21:00 Nasal Cannula 2.0 04/13/20 20:00 98.2 69 18 161/63 (95) 98 04/13/20 20:00 63 04/13/20 18:37 173/85 04/13/20 18:37 61 173/85 04/13/20 16:00 97.8 60 18 173/85 (114) 98 04/13/20 16:00 61 04/13/20 15:36 80 18 145/80 94 04/13/20 15:06 67 18 180/93 94 04/13/20 12:00 97.4 62 18 156/70 (98) 98 04/13/20 12:00 68 04/13/20 10:40 74 18 170/82 100 04/13/20 10:14 74 04/13/20 10:10 68 18 176/85 100 04/13/20 08:00 98.1 68 18 176/85 (115) 100 04/13/20 08:00 68 04/13/20 08:00 Nasal Cannula 2.0 04/13/20 06:28 148/87 04/13/20 04:00 98.7 68 18 154/63 (93) 100 04/13/20 04:00 67 04/13/20 03:27 70 18 130/68 97 04/13/20 02:57 70 20 152/70 98 HEENT: normal ENT inspection RHYTHM: NSR, PACs LUNGS: lungs clear bilaterally CARDIAC: regular rhythm, normal S1 and S2, gallop/S4 ABDOMEN: normal bowel sounds, non tender, soft, no organomegaly EXTREMITIES: normal range of motion, normal capillary refill, No edema Laboratory Tests Test 2/2/21 10:45 White Blood Count 7.5 K/UL (4.8-10.8) Red Blood Count 2.85 M/UL (4.20-5.40) L Hemoglobin 7.9 G/DL (12.0-16.0) L Hematocrit 25.6 % (37.0-47.0) L Mean Corpuscular Volume 90 FL (80-99) Mean Corpuscular Hemoglobin 27.7 PG (27.0-31.0) Mean Corpuscular Hemoglobin Concent 30.8 G/DL (32.0-36.0) L Red Cell Distribution Width 14.7 % (11.6-14.8) Platelet Count 159 K/UL (150-450) Mean Platelet Volume 7.8 FL (6.5-10.1) Neutrophils (%) (Auto) % (45.0-75.0) Lymphocytes (%) (Auto) % (20.0-45.0) Monocytes (%) (Auto) % (1.0-10.0) Eosinophils (%) (Auto) % (0.0-3.0) Basophils (%) (Auto) % (0.0-2.0) Differential Total Cells Counted 100 Neutrophils % (Manual) 81 % (45-75) H Lymphocytes % (Manual) 10 % (20-45) L Monocytes % (Manual) 9 % (1-10) Eosinophils % (Manual) 0 % (0-3) Basophils % (Manual) 0 % (0-2) Band Neutrophils 0 % (0-8) Platelet Estimate Adequate Platelet Morphology Normal Hypochromasia 1+ Anisocytosis 1+ Sodium Level 141 MMOL/L (136-145) Potassium Level 4.4 MMOL/L (3.5-5.1) Chloride Level 105 MMOL/L (98-107) Carbon Dioxide Level 27 MMOL/L (21-32) Blood Urea Nitrogen 52 mg/dL (7-18) H Creatinine 4.4 MG/DL (0.55-1.30) H Estimat Glomerular Filtration Rate 9.9 mL/min (>60) Glucose Level 105 MG/DL (74-106) Calcium Level 7.9 MG/DL (8.5-10.1) L Magnesium Level 1.9 MG/DL (1.8-2.4) Iron Level 39 ug/dL (50-175) L Total Iron Binding Capacity 158 ug/dL (250-450) L Percent Iron Saturation 25 % (15-50) Unsaturated Iron Binding 119 ug/dL (112-346) Troponin I 0.058 ng/mL (0.000-0.056) Microbiology Date/Time Source Procedure Growth Status 04/11/20 13:20 Nasopharynx Coronavirus COVID-19 PCR ([facility]) - Final Complete 04/11/20 10:20 Nasal Nares MRSA Culture - Final Staphylococcus Aureus - Mrsa Complete Assessment/Plan Assessment/Plan Missed dialysis session Acute coronary syndrome/troponin leak Hx cocaine abuse Ac/chronic systolic/diastolic CHF Pulmonary hypertension Permanent pacemaker Degenerative valve disease Metabolic encephalopathy ESRD Hypertension/HHD with hypertensive urgency Repeat troponin Maximize anti-failure and antiHTN meds HD/UF Attempting to get data on pacemaker Antiplt rx Sourav Montejo MD Apr 14, 2020 01:28
[2020-04-14 04:00] VITALS: BP 173/79
--- NOTE | 2020-04-14 04:00 | NUR ---
NURSE NOTES: Pt is awake and confused. Feeling hungry. Provide cookies and milk by pt's request. No distress noted. On restraints with bed alarm. Will continue to monitor.
--- NOTE | 2020-04-14 05:10 | NUR ---
NURSE NOTES: Pt got out of bed and found IV site being removed, agitated. Move pt to the bed and clean up. New IV access establish on right FA. Reapply restraints bilateral wrist. Will be given ativan IVS as ordered. Will continue to monitor closely.
[2020-04-14] MEDS: HydrALAZINE 25mg tab ORAL SCH ×3 (05:20→17:44)
[2020-04-14] MEDS: LORazepam Inj 2mg/ml 1ml IV PRN (05:23)
--- NOTE | 2020-04-14 06:34 | NUR ---
NURSE HAND-OFF REPORT: Important Events on Shift: Removal IV site and being found standing at bedside, confused and agitated,. Ativan x1. Patient Status: Diet: Renal] Pending Orders: [] Pending Results/Labs:[] Pending MD notification:[] Latest Vital Signs: Temperature 99.6 , Pulse 65 , B/P 173 /79 , Respiratory Rate 18 , O2 SAT 96 , Room Air, O2 Flow Rate 2.0 . Vital Sign Comment: [] EKG Rhythm: V-Paced Rhythm change?: N MD Notified?: - MD Response: Latest Mcconnell Fall Score: 50 Fall Risk: High Risk Safety Measures: Call light Within Reach, Bed Alarm Zone 2, Side Rails Side Rails x3, Bed position Low and Locked. Fall Precautions: Yellow Socks Yellow Gown Door Sign Patient Fall Education
--- NOTE | 2020-04-14 07:15 | NUR ---
NURSE NOTES: RECEIVED REPORT FROM [place] [employer] ASSISTANT OF [employer] SPECIALIST. RECEIVED PT WITH HOB ELEVATED 45 DEGREE VERY CONFUSED UANABLE TO FALLOWS SIMPLE COMMANDS.PT IS VERY HARD OF HEARING ON BILAT EARS. PT WITH BILATERAL SOFT WRIST RESTRAINTS FOR SAFETY AND TO PREVENT FALLS AND INJURIES. RELEASED RESTRAINTS AND PROVIDE ROM,S TO ALL EXT,S. PT REPOSITIONED IN BED MADE COMFORTABLE POSSIBLE. PT REMAINS FREE OF INJURIES AT THIS TIME WILL CON TO MONITOR.
--- NOTE | 2020-04-14 07:40 | NUR ---
NURSE NOTES: Given report to MARY Bowie. Round is made. Dr. Epperson is aware that pt wants to go home.
[2020-04-14 08:00] VITALS: BP 164/76
--- NOTE | 2020-04-14 08:59 | Nephrology Progress Note ---
Assessment/Plan Plan #chest pain r/o ACS #ESRD on HD #acute on chronic anemia #Accelerated HTN #dementia with behavioural disturbance - next HD tomorrow - check iron panel-> adequate - resume epo - check PTH/vitamin D - monitor mag and phos daily while inpatient - cardiology eval - resume [employer] antihypertensive - coreg 25mg BID - benaopril 20 BID Time spent 65 min Subjective ROS Limited/Unobtainable: No Constitutional: Reports: weakness Subjective no acute events s/p HD yesterday with 3.5L removed BP elevated Objective Objective Last 24 Hour Vital Signs Date Time Temp Pulse Resp B/P (MAP) Pulse Ox O2 Delivery O2 Flow Rate FiO2 04/14/20 05:20 173/79 04/14/20 05:19 173/79 04/14/20 04:00 65 04/14/20 04:00 99.6 65 18 173/79 (110) 96 04/14/20 00:01 153/73 04/14/20 00:00 74 04/14/20 00:00 98.3 74 18 153/72 (99) 98 04/13/20 21:09 161/63 04/13/20 21:08 161/63 04/13/20 21:00 Nasal Cannula 2.0 04/13/20 20:00 98.2 69 18 161/63 (95) 98 04/13/20 20:00 63 04/13/20 18:37 173/85 04/13/20 18:37 61 173/85 04/13/20 16:00 97.8 60 18 173/85 (114) 98 04/13/20 16:00 61 04/13/20 15:36 80 18 145/80 94 04/13/20 15:06 67 18 180/93 94 04/13/20 12:00 97.4 62 18 156/70 (98) 98 04/13/20 12:00 68 04/13/20 10:40 74 18 170/82 100 04/13/20 10:14 74 04/13/20 10:10 68 18 176/85 100 Intake and Output 04/13/20 04/14/20 19:00 07:00 Intake Total 480 ml 300 ml Output Total 7000 ml Balance -6520 ml 300 ml Intake Oral 480 ml 300 ml Hemodialysis UF 3500 ml Other 3500 ml # Voids 2 Laboratory Tests 04/13/20 10:45: White Blood Count 7.5, Red Blood Count 2.85L, Hemoglobin 7.9L, Hematocrit 25.6L, Mean Corpuscular Volume 90, Mean Corpuscular Hemoglobin 27.7, Mean Corpuscular Hemoglobin Concent 30.8L, Red Cell Distribution Width 14.7, Platelet Count 159, Mean Platelet Volume 7.8, Neutrophils (%) (Auto) , Lymphocytes (%) (Auto) , Monocytes (%) (Auto) , Eosinophils (%) (Auto) , Basophils (%) (Auto) , Differential Total Cells Counted 100, Neutrophils % (Manual) 81H, Lymphocytes % (Manual) 10L, Monocytes % (Manual) 9, Eosinophils % (Manual) 0, Basophils % (Manual) 0, Band Neutrophils 0, Platelet Estimate Adequate, Platelet Morphology Normal, Hypochromasia 1+, Anisocytosis 1+, Sodium Level 141, Potassium Level 4.4, Chloride Level 105, Carbon Dioxide Level 27, Blood Urea Nitrogen 52H, Creatinine 4.4H, Estimat Glomerular Filtration Rate 9.9, Glucose Level 105, Calcium Level 7.9L, Magnesium Level 1.9, Iron Level 39L, Total Iron Binding Capacity 158L, Percent Iron Saturation 25, Unsaturated Iron Binding 119, Troponin I 0.058H Height (Feet): 5 Height (Inches): 7.00 Weight (Pounds): 115 Objective General Appearance: no apparent distress, alert EENT: PERRL/EOMI, normal ENT inspection Neck: non-tender, normal alignment Cardiovascular: normal peripheral pulses, normal rate, regular rhythm Respiratory/Chest: chest wall non-tender, lungs clear Abdomen: normal bowel sounds, non tender Extremities: normal range of motion Neurologic: alert, oriented x 3 Ace Munroe M.D. Apr 14, 2020 08:59
[2020-04-14] MEDS: Docusate 100mg cap ORAL SCH ×2 (09:11→17:45)
[2020-04-14] MEDS: Vitamin B-12 500mcg tab ORAL SCH (09:13)
[2020-04-14] MEDS: Carvedilol 25mg Tab ORAL SCH ×2 (09:14→17:45)
[2020-04-14] MEDS: Furosemide 40mg tab ORAL SCH (09:14)
[2020-04-14] MEDS: Aspirin Baby 81mg ORAL SCH (09:14)
[2020-04-14] MEDS: Benazepril 10mg tab ORAL SCH ×2 (09:19→20:15)
[2020-04-14] MEDS: Spironolactone 25mg tab ORAL SCH (09:20)
[2020-04-14] MEDS: Heparin 5000 units/ml inj SUBQ SCH ×2 (09:20→17:46)
[2020-04-14] MEDS: Nephrovite tab (Rena-Vite) ORAL SCH (09:21)
[2020-04-14] MEDS: Haloperidol 5mg/ml Inj IM PRN (10:30)
[2020-04-14 11:42] VITALS: BP 174/93
--- NOTE | 2020-04-14 15:58 | General Progress Note ---
Subjective ROS Limited/Unobtainable: Yes Constitutional: Reports: malaise, weakness HEENT: Reports: no symptoms Cardiovascular: Reports: no symptoms Respiratory: Reports: no symptoms Gastrointestinal/Abdominal: Reports: no symptoms Genitourinary: Reports: no symptoms Neurologic/Psychiatric: Reports: anxiety, emotional problems, pre-existing deficit Endocrine: Reports: no symptoms Hematologic/Lymphatic: Reports: no symptoms Allergies: Coded Allergies: MORPHINE (Unverified Allergy, Unknown, 04/11/20) PENICILLINS (Unverified Allergy, Unknown, 04/11/20) SULFA (SULFONAMIDE ANTIBIOTICS) (Verified Allergy, Unknown, 02/24/20) All Systems: reviewed and negative except above Subjective no events. remains agitated and aggressive. refusing meds unless narcotic. labs reviewed. hgb stable. still very agitated at times. pulle out iv. poor pos. no reports of fevers or cough. Objective Last 24 Hour Vital Signs Date Time Temp Pulse Resp B/P (MAP) Pulse Ox O2 Delivery O2 Flow Rate FiO2 04/14/20 12:06 174/93 04/14/20 12:05 174/93 04/14/20 12:00 65 04/14/20 11:42 96.7 72 19 174/93 (120) 98 04/14/20 09:19 173/79 04/14/20 09:14 65 173/79 04/14/20 09:00 Nasal Cannula 2.0 04/14/20 08:00 70 04/14/20 08:00 98.1 72 20 164/76 (105) 97 04/14/20 05:20 173/79 04/14/20 05:19 173/79 04/14/20 04:00 65 04/14/20 04:00 99.6 65 18 173/79 (110) 96 04/14/20 00:01 153/73 04/14/20 00:00 74 04/14/20 00:00 98.3 74 18 153/72 (99) 98 04/13/20 21:09 161/63 04/13/20 21:08 161/63 04/13/20 21:00 Nasal Cannula 2.0 04/13/20 20:00 98.2 69 18 161/63 (95) 98 04/13/20 20:00 63 04/13/20 18:37 173/85 04/13/20 18:37 61 173/85 04/13/20 16:00 97.8 60 18 173/85 (114) 98 04/13/20 16:00 61 Intake and Output 04/13/20 04/14/20 19:00 07:00 Intake Total 480 ml 300 ml Output Total 7000 ml Balance -6520 ml 300 ml Intake Oral 480 ml 300 ml Hemodialysis UF 3500 ml Other 3500 ml # Voids 2 Height (Feet): 5 Height (Inches): 7.00 Weight (Pounds): 115 General Appearance: WD/WN, alert Neck: supple Cardiovascular: normal rate, regular rhythm Respiratory/Chest: lungs clear, normal breath sounds, no respiratory distress, no accessory muscle use Abdomen: normal bowel sounds, non tender, soft, no organomegaly, no mass Edema: no edema noted Arm (L), no edema noted Arm (R), no edema noted Leg (L), no edema noted Leg (R) Neurologic: thread checker II-XII grossly normal, alert, oriented x 3, responsive, disoriented Assessment/Plan Problem List: (1) Pneumonia due to COVID-19 virus ICD Codes: U07.1 - COVID-19; J12.82 - Pneumonia due to coronavirus disease 2019 SNOMED: 396305079052032835 (2) Anemia ICD Codes: D64.9 - Anemia, unspecified SNOMED: 894353810 (3) Toxic metabolic encephalopathy ICD Codes: G92 - Toxic encephalopathy SNOMED: 481309121 (4) Hypertension ICD Codes: I10 - Essential (primary) hypertension SNOMED: 63972787, 68073701175122 (5) Noncompliance ICD Codes: Z91.19 - Patient's noncompliance with other medical treatment and regimen SNOMED: 6018339, 7948854 (6) Acute exacerbation of CHF (congestive heart failure) ICD Codes: I50.9 - Heart failure, unspecified SNOMED: 879525395, 06405359813767 Status: stable, not improved Assessment/Plan: iv ativan for severe agitation psych follow up check iron panel await stool ob iron and epogen monitor h/h follow up pending labs gi eval if stool ob positive- not done yet compliance stressed repeat covid needed for dc dvt and stress ulcer prophylaxis skin care HD per renal Laurent Epperson MD Apr 14, 2020 15:58
[2020-04-14 16:00] VITALS: BP 167/61
--- NOTE | 2020-04-14 18:57 | NUR ---
NURSE HAND-OFF REPORT: Important Events on Shift:[] Patient Status: [] Diet: [] Pending Orders: [] Pending Results/Labs:[] Pending MD notification:[] Latest Vital Signs: Temperature 98.7 , Pulse 71 , B/P 167 /61 , Respiratory Rate 21 , O2 SAT 97 , Room Air, O2 Flow Rate 2.0 . Vital Sign Comment: [] EKG Rhythm: sr with 1st degreeHB, BBB Rhythm change?: N MD Notified?: - MD Response: Latest Mcconnell Fall Score: 50 Fall Risk: High Risk Safety Measures: Call light Within Reach, Bed Alarm Zone 2, Side Rails Side Rails x3, Bed position Low and Locked. Fall Precautions: Yellow Socks Yellow Gown Door Sign Patient Fall Education Report given to [].
--- NOTE | 2020-04-14 19:20 | NUR ---
NURSE NOTES: Receive a report from MARY Bowie. Pt is awake and asking for food. Denies pain. No acute distress noted. On O2 2L NC. Breathing is even and non labored. RUC perma catheter site intact. Pacemaker on JASON. Left FA non-accessible AV shunt. Skin intact. On bilateral wrists restraints. Skin, motor, and sensory intact. On bed alarm. Call light within reach. Will continue to monitor. HD scheduled tomorrow @ [facility].
[2020-04-14 20:00] VITALS: BP 178/89
[2020-04-14] MEDS: Atorvastatin 20mg tab ORAL SCH (20:14)
[2020-04-14] MEDS: Epoetin Alfa-EPBX(ESRD on dialysis)4000 units/ml vial SUBQ SCH (20:15)
[2020-04-14] MEDS: Iron Sucrose 100 MG in NS 55 ML IVPB SCH (20:21)
[2020-04-14] MEDS: traMADol 50mg tab ORAL PRN (22:16)
--- NOTE | 2020-04-14 23:24 | Cardiology Progress Note ---
Subjective DATE OF SERVICE: Apr 14, 2020 Difficult to manage due to psych issues and non-compliance No c/o chest pain; troponins unchg'd at 0.058 Remains aggressive and combative with staff No apparent SOB. BP elevations/spikes at times. Objective Last 24 Hour Vital Signs Date Time Temp Pulse Resp B/P (MAP) Pulse Ox O2 Delivery O2 Flow Rate FiO2 04/14/20 20:15 178/89 04/14/20 20:00 98.2 86 21 178/89 (118) 98 04/14/20 20:00 74 04/14/20 17:45 71 167/61 04/14/20 17:44 167/61 04/14/20 17:44 167/61 04/14/20 16:00 98.7 85 21 167/61 (96) 97 04/14/20 16:00 71 04/14/20 12:06 174/93 04/14/20 12:05 174/93 04/14/20 12:00 65 04/14/20 11:42 96.7 72 19 174/93 (120) 98 04/14/20 09:19 173/79 04/14/20 09:14 65 173/79 04/14/20 09:00 Nasal Cannula 2.0 04/14/20 08:00 70 04/14/20 08:00 98.1 72 20 164/76 (105) 97 04/14/20 05:20 173/79 04/14/20 05:19 173/79 04/14/20 04:00 65 04/14/20 04:00 99.6 65 18 173/79 (110) 96 04/14/20 00:01 153/73 04/14/20 00:00 74 04/14/20 00:00 98.3 74 18 153/72 (99) 98 HEENT: normal ENT inspection RHYTHM: NSR, PACs LUNGS: lungs clear bilaterally CARDIAC: regular rhythm, normal S1 and S2, gallop/S4 ABDOMEN: normal bowel sounds, non tender, soft, no organomegaly EXTREMITIES: normal range of motion, normal capillary refill, No edema Assessment/Plan Assessment/Plan Missed dialysis session Acute coronary syndrome/troponin leak Hx cocaine abuse Ac/chronic systolic/diastolic CHF Pulmonary hypertension Permanent pacemaker Degenerative valve disease Metabolic encephalopathy ESRD Hypertension/HHD with hypertensive urgency Maximize anti-failure and antiHTN meds; will consider topical therapy HD/UF Attempting to get data on pacemaker Antiplt rx Sourav Montejo MD Apr 14, 2020 23:24
[2020-04-15] VITALS: BP 165/90
[2020-04-15] MEDS: HydrALAZINE 25mg tab ORAL SCH ×4 (00:16→18:00)
[2020-04-15] MEDS: LORazepam Inj 2mg/ml 1ml IV PRN ×3 (02:07→23:30)
[2020-04-15 04:00] VITALS: BP 182/84
[2020-04-15 06:29] LABS: HEMATOCRIT 24.5 % (37.0-47.0); HEMOGLOBIN 7.5 G/DL (12.0-16.0); MEAN CORPUSCULAR VOLUME 91 FL (80-99); PLATELET COUNT 132 K/UL (150-450); RED BLOOD COUNT 2.69 M/UL (4.20-5.40); WHITE BLOOD COUNT 7.8 K/UL (4.8-10.8)
[2020-04-15 06:48] LABS: CALCIUM 7.9 MG/DL (8.5-10.1); CREATININE 3.8 MG/DL (0.55-1.30); PHOSPHORUS 4.2 MG/DL (2.5-4.9); POTASSIUM 4.2 MMOL/L (3.5-5.1)
--- NOTE | 2020-04-15 07:10 | NUR ---
NURSE HAND-OFF REPORT: Important Events on Shift: Agitating-Given Ativan 1x. No acute distress noted. Planning on HD today Patient Status: [] Diet: [renal diet] Pending Orders: [] Pending Results/Labs:[] Pending MD notification:[] Latest Vital Signs: Temperature 97.2 , Pulse 60 , B/P 182 /84 , Respiratory Rate 20 , O2 SAT 99 , Room Air, O2 Flow Rate 2.0 . Vital Sign Comment: [] EKG Rhythm: SR w/1st degree HB, BBB Rhythm change?: N MD Notified?: - MD Response: Latest Mcconnell Fall Score: 60 Fall Risk: High Risk Safety Measures: Call light Within Reach, Bed Alarm Zone 2, Side Rails Side Rails x3, Bed position Low and Locked. Fall Precautions: Yellow Socks Yellow Gown Door Sign Patient Fall Education
--- NOTE | 2020-04-15 07:13 | NUR ---
NURSE NOTES: Given report to MARY Whyte. Round is made.
--- NOTE | 2020-04-15 07:15 | NUR ---
NURSE NOTES: Received report from Gho/RN, Observed patient asleep, Lying semi-zendejas's, resting comfortably. On 2L nasal canula, No acute distress/SOB noted. IV in right FA patent and intact. Patient has bilateral soft wrist restraint for safety. Bed in low position and locked, Call light within reach. Encouraged to use call light when needed. Will continue plan of care.
--- NOTE | 2020-04-15 07:18 | NUR ---
CASE MANAGEMENT:REVIEW 04/15/20 SI: AC/CHR CHF. METABOLIC ENCEPHALOPATHY TROPONIN LEAK. ESRD . PACEMAKER 97.2 65 20 182/84 99% ON 2L/NC H/H-7.5/24.5 IS: IV VENOFER QHS HYDRALAZINE PO Q6 DIGOXIN PO QOD IV ATIVAN Q4HRS PRN EPOETIN MWF SQ ALDACTONE PO QD LASIX PO QD IRON PO QD ASA PO QD SEROQUEL PO Q12 LOTENSIN PO Q12 COREG PO BID HEPARIN SQ BID : TELEMETRY STATUS DCP: [facility] PLAN: INTERROGATE PACEMAKER REQUIRING BEHAVORIAL MODIFICATION
[2020-04-15 08:00] VITALS: BP 146/71
--- NOTE | 2020-04-15 08:20 | NUR ---
NURSE NOTES: Dialysis nurse called and requested, not to give BP meds and Blood thinner. She will come in the afternoon to dialyze patient.
--- NOTE | 2020-04-15 08:27 | General Progress Note ---
Subjective ROS Limited/Unobtainable: No Constitutional: Reports: no symptoms HEENT: Reports: no symptoms Cardiovascular: Reports: no symptoms Respiratory: Reports: cough Gastrointestinal/Abdominal: Reports: no symptoms Genitourinary: Reports: no symptoms Neurologic/Psychiatric: Reports: no symptoms Endocrine: Reports: no symptoms Hematologic/Lymphatic: Reports: anemia Allergies: Coded Allergies: MORPHINE (Unverified Allergy, Unknown, 04/11/20) PENICILLINS (Unverified Allergy, Unknown, 04/11/20) SULFA (SULFONAMIDE ANTIBIOTICS) (Verified Allergy, Unknown, 02/24/20) All Systems: reviewed and negative except above Subjective no events. decreased h/h noted. intermittently agitated and aggressive. current ly resting. due for HD. Objective Last 24 Hour Vital Signs Date Time Temp Pulse Resp B/P (MAP) Pulse Ox O2 Delivery O2 Flow Rate FiO2 04/15/20 05:44 182/84 04/15/20 05:44 182/84 04/15/20 04:00 60 04/15/20 04:00 97.2 65 20 182/84 (116) 99 04/15/20 00:16 165/90 04/15/20 00:16 165/90 04/15/20 00:00 70 04/15/20 00:00 98.0 74 21 165/90 (115) 99 04/14/20 21:00 Nasal Cannula 2.0 04/14/20 20:15 178/89 04/14/20 20:00 98.2 86 21 178/89 (118) 98 04/14/20 20:00 74 04/14/20 17:45 71 167/61 04/14/20 17:44 167/61 04/14/20 17:44 167/61 04/14/20 16:00 98.7 85 21 167/61 (96) 97 04/14/20 16:00 71 04/14/20 12:06 174/93 04/14/20 12:05 174/93 04/14/20 12:00 65 04/14/20 11:42 96.7 72 19 174/93 (120) 98 04/14/20 09:19 173/79 04/14/20 09:14 65 173/79 04/14/20 09:00 Nasal Cannula 2.0 Intake and Output 04/14/20 04/15/20 19:00 07:00 Intake Total 750 ml 250 ml Balance 750 ml 250 ml Intake Oral 750 ml 250 ml # Voids 2 1 Laboratory Tests 04/15/20 05:41: White Blood Count 7.8, Red Blood Count 2.69L, Hemoglobin 7.5L, Hematocrit 24.5L, Mean Corpuscular Volume 91, Mean Corpuscular Hemoglobin 27.8, Mean Corpuscular Hemoglobin Concent 30.6L, Red Cell Distribution Width 15.0H, Platelet Count 132L , Mean Platelet Volume 7.8, Neutrophils (%) (Auto) , Lymphocytes (%) (Auto) , Monocytes (%) (Auto) , Eosinophils (%) (Auto) , Basophils (%) (Auto) , Neutrophils % (Manual) [Pending], Lymphocytes % (Manual) [Pending], Platelet Estimate [Pending], Platelet Morphology [Pending], Sodium Level 144, Potassium Level 4.2, Chloride Level 106, Carbon Dioxide Level 31, Anion Gap 7, Blood Urea Nitrogen 36H, Creatinine 3.8H, Estimat Glomerular Filtration Rate 11.6, Glucose Level 84, Calcium Level 7.9L, Phosphorus Level 4.2, Magnesium Level 1.8 Height (Feet): 5 Height (Inches): 7.00 Weight (Pounds): 115 General Appearance: WD/WN, alert, lethargic, confused EENT: normal ENT inspection Neck: normal alignment Cardiovascular: normal rate, regular rhythm Respiratory/Chest: chest wall non-tender, lungs clear, normal breath sounds Abdomen: normal bowel sounds, non tender, soft, no organomegaly, no mass Edema: no edema noted Arm (L), no edema noted Arm (R), no edema noted Leg (L), no edema noted Leg (R) Neurologic: commissioner conservation of resources II-XII grossly normal, alert, responsive Skin: normal pigmentation Assessment/Plan Problem List: (1) Pneumonia due to COVID-19 virus ICD Codes: U07.1 - COVID-19; J12.82 - Pneumonia due to coronavirus disease 2019 SNOMED: 085352359526507747 (2) Anemia ICD Codes: D64.9 - Anemia, unspecified SNOMED: 933307329 (3) Toxic metabolic encephalopathy ICD Codes: G92 - Toxic encephalopathy SNOMED: 909287788 (4) Hypertension ICD Codes: I10 - Essential (primary) hypertension SNOMED: 88211514, 04814295198553 (5) Noncompliance ICD Codes: Z91.19 - Patient's noncompliance with other medical treatment and regimen SNOMED: 9104651, 0381563 (6) Acute exacerbation of CHF (congestive heart failure) ICD Codes: I50.9 - Heart failure, unspecified SNOMED: 371871288, 67067210680796 Status: stable, not improved Assessment/Plan: iv ativan for severe agitation psych follow up check iron panel await stool ob iron and epogen transfuse prbc with HD stool OB compliance stressed repeat covid needed for dc dvt and stress ulcer prophylaxis skin care HD per renal dc planning Laurent Epperson MD Apr 15, 2020 08:27
--- NOTE | 2020-04-15 08:42 | Nephrology Progress Note ---
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 TECHNICIAN antihypertensive - coreg 25mg BID - benaopril 20 BID Time spent 65 min Subjective Subjective no acute events plan for HD today Objective Objective Last 24 Hour Vital Signs Date Time Temp Pulse Resp B/P (MAP) Pulse Ox O2 Delivery O2 Flow Rate FiO2 04/15/20 05:44 182/84 04/15/20 05:44 182/84 04/15/20 04:00 60 04/15/20 04:00 97.2 65 20 182/84 (116) 99 04/15/20 00:16 165/90 04/15/20 00:16 165/90 04/15/20 00:00 70 04/15/20 00:00 98.0 74 21 165/90 (115) 99 04/14/20 21:00 Nasal Cannula 2.0 04/14/20 20:15 178/89 04/14/20 20:00 98.2 86 21 178/89 (118) 98 04/14/20 20:00 74 04/14/20 17:45 71 167/61 04/14/20 17:44 167/61 04/14/20 17:44 167/61 04/14/20 16:00 98.7 85 21 167/61 (96) 97 04/14/20 16:00 71 04/14/20 12:06 174/93 04/14/20 12:05 174/93 04/14/20 12:00 65 04/14/20 11:42 96.7 72 19 174/93 (120) 98 04/14/20 09:19 173/79 04/14/20 09:14 65 173/79 04/14/20 09:00 Nasal Cannula 2.0 Intake and Output 04/14/20 04/15/20 19:00 07:00 Intake Total 750 ml 250 ml Balance 750 ml 250 ml Intake Oral 750 ml 250 ml # Voids 2 1 Laboratory Tests 04/15/20 05:41: White Blood Count 7.8, Red Blood Count 2.69L, Hemoglobin 7.5L, Hematocrit 24.5L, Mean Corpuscular Volume 91, Mean Corpuscular Hemoglobin 27.8, Mean Corpuscular Hemoglobin Concent 30.6L, Red Cell Distribution Width 15.0H, Platelet Count 132L , Mean Platelet Volume 7.8, Neutrophils (%) (Auto) , Lymphocytes (%) (Auto) , Monocytes (%) (Auto) , Eosinophils (%) (Auto) , Basophils (%) (Auto) , Neutrophils % (Manual) [Pending], Lymphocytes % (Manual) [Pending], Platelet Estimate [Pending], Platelet Morphology [Pending], Sodium Level 144, Potassium Level 4.2, Chloride Level 106, Carbon Dioxide Level 31, Anion Gap 7, Blood Urea Nitrogen 36H, Creatinine 3.8H, Estimat Glomerular Filtration Rate 11.6, Glucose Level 84, Calcium Level 7.9L, Phosphorus Level 4.2, Magnesium Level 1.8 Height (Feet): 5 Height (Inches): 7.00 Weight (Pounds): 115 Objective General Appearance: no apparent distress, alert EENT: PERRL/EOMI, normal ENT inspection Neck: non-tender, normal alignment Cardiovascular: normal peripheral pulses, normal rate, regular rhythm Respiratory/Chest: chest wall non-tender, lungs clear Abdomen: normal bowel sounds, non tender Extremities: normal range of motion Neurologic: alert, oriented x 3 Ace Munroe M.D. Apr 15, 2020 08:42
[2020-04-15] MEDS: Aspirin Baby 81mg ORAL SCH (08:57)
[2020-04-15] MEDS: Furosemide 40mg tab ORAL SCH (08:57)
[2020-04-15] MEDS: Nephrovite tab (Rena-Vite) ORAL SCH (08:57)
[2020-04-15] MEDS: Docusate 100mg cap ORAL SCH ×2 (08:57→18:21)
[2020-04-15] MEDS: Spironolactone 25mg tab ORAL SCH (08:57)
[2020-04-15] MEDS: Vitamin B-12 500mcg tab ORAL SCH (08:57)
[2020-04-15] MEDS: Heparin 5000 units/ml inj SUBQ SCH ×2 (09:00→18:00)
[2020-04-15] MEDS: Benazepril 10mg tab ORAL SCH ×2 (09:00→20:29)
[2020-04-15] MEDS: Carvedilol 25mg Tab ORAL SCH ×2 (09:00→18:00)
--- NOTE | 2020-04-15 12:44 | NUR ---
RD ASSESSMENT & RECOMMENDATIONS SEE CARE ACTIVITY FOR COMPLETE ASSESSMENT DAILY ESTIMATED NEEDS: Needs based on ESRD w/ HD, 52.3kg 30-35 kcals/kg 2239-6436 total kcals 1.2-1.8 g protein/kg 63-94 g total protein Fluids per MD mL/kg total fluid mLs NUTRITION DIAGNOSIS: Increased kcal/prot needs R/T renal dysfunction as evidenced by pt w/ ESRD on HD. CURRENT DIET: Renal diet ms chopped PO DIET RECOMMENDATIONS: RENAL/ texture per ORDER TRACER ADDITIONAL RECOMMENDATIONS: * Daily calibrated bedscale wt * Nephrovite x 1 * Add NEPRO BID High pro snacks in b/w meal s * On lasix, monitor lytes * BG 75, rec bedside BG checks for hypoglycemia .
[2020-04-15 16:00] VITALS: BP 173/75
--- NOTE | 2020-04-15 17:55 | NUR ---
NURSE NOTES: Dialysis nurse is here and dialyzing patient at this time.
--- NOTE | 2020-04-15 19:16 | Psychiatric Progress Note ---
Psychiatry Progress Note Psychiatry Progress Note Medications Current Medications Medications (Trade) Dose Ordered Sig/Sugey Route PRN Reason Start Time Stop Time Status Last Admin Dose Admin Albuterol Sulfate (Proventil MDI) 2 puff EVERY 6 HOURS PRN INH Shortness of Breath 04/11/20 12:15 07/10/20 12:14 Aspirin (ASA) 81 mg DAILY ORAL 04/12/20 09:00 05/27/20 08:59 04/15/20 08:57 Atorvastatin Calcium (Lipitor) 20 mg BEDTIME ORAL 04/11/20 21:00 07/10/20 20:59 04/14/20 20:14 Benazepril HCl (Lotensin) 20 mg EVERY 12 HOURS ORAL 04/11/20 21:00 05/11/20 20:59 04/14/20 20:15 Carvedilol (Coreg) 25 mg BID ORAL 04/11/20 18:00 05/11/20 17:59 04/14/20 17:45 Clonidine HCl (Catapres Tab) 0.1 mg EVERY 6 HOURS ORAL 04/11/20 18:00 07/10/20 17:59 04/15/20 05:44 Cyanocobalamin (Vitamin B-12) 1,000 mcg DAILY ORAL 04/12/20 09:00 05/12/20 08:59 04/15/20 08:57 Digoxin (Lanoxin) 0.25 mg EVERY OTHER DAY ORAL 04/13/20 09:00 07/12/20 08:59 04/15/20 08:57 Docusate Sodium (Colace) 100 mg TWICE A DAY ORAL 04/11/20 18:00 05/11/20 17:59 04/15/20 18:21 Epoetin Mychal (Epoetin Mychal(ESRD on dialysis)) 4,000 unit SUN-SUN-SUN SUBQ 04/12/20 21:00 07/11/20 20:59 04/14/20 20:15 Ferrous Sulfate (Feosol) 325 mg DAILY ORAL 04/12/20 09:00 07/11/20 08:59 04/15/20 08:57 Furosemide (Lasix) 40 mg DAILY ORAL 04/12/20 09:00 05/12/20 08:59 04/15/20 08:57 Haloperidol Lactate (Haldol) 5 mg Q6H PRN IM Agitation 04/11/20 19:30 05/26/20 19:29 04/14/20 10:30 Heparin Sodium (Porcine) (Heparin 5000 units/ml) 5,000 units BID SUBQ 04/11/20 18:00 05/26/20 17:59 04/14/20 17:46 Hydralazine HCl (Apresoline) 25 mg EVERY 6 HOURS ORAL 04/14/20 06:00 07/13/20 05:59 04/15/20 05:44 Iron Sucrose 100 mg/Sodium Chloride 60 ml @ 240 mls/hr BEDTIME IVPB 04/14/20 21:00 04/18/20 21:14 04/14/20 20:21 Lorazepam (Ativan 2mg/ml 1ml) 2 mg Q4H PRN IV For Anxiety 04/13/20 07:30 04/20/20 07:29 04/15/20 08:58 Magnesium Hydroxide (Mom) 30 ml HSPRN PRN ORAL Constipation 04/11/20 12:15 05/11/20 12:14 Polyethylene Glycol (Miralax) 17 gm DAILY PRN ORAL Constipation 04/11/20 12:15 05/11/20 12:14 Quetiapine Fumarate (SEROqueL) 50 mg Q12HR ORAL 04/11/20 21:00 05/26/20 20:59 04/15/20 08:57 Spironolactone (Aldactone) 25 mg DAILY ORAL 04/12/20 09:00 05/12/20 08:59 04/15/20 08:57 Tramadol HCl (Ultram) 50 mg Q6H PRN ORAL For Pain 04/11/20 12:30 04/18/20 12:29 04/14/20 22:16 Vitamin B Complex/ Vit C/Folic Acid (Nephrovite) 1 tab DAILY ORAL 04/11/20 14:00 05/11/20 13:59 04/15/20 08:57 Neurological/Psychiatric: Reports: anxiety, depressed Allergies: Coded Allergies: MORPHINE (Unverified Allergy, Unknown, 04/11/20) PENICILLINS (Unverified Allergy, Unknown, 04/11/20) SULFA (SULFONAMIDE ANTIBIOTICS) (Verified Allergy, Unknown, 02/24/20) Objective Data Height (Feet): 5 Height (Inches): 7.00 Weight (Pounds): 115 General Appearance: WD/WN, alert, lethargic, confused Additional Comments: Patient is awake, disoriented to date and situation. Mood is agitated. Affect is flat. Thought process, disorganized. Thought content, there is no suicidal or homicidal ideation. Cognition is impaired. Insight and judgment is impaired. Assessment/Plan [place] I: [place] I Psychotic disorder. Cognitive impairment. Cocaine abuse. [place] II Deferred. [place] III As above. [place] IV Low. [place] V 20. PLAN: 1. We will start the patient on antipsychotics. 2. Discussed the case with the nurse. Status: stable, not improved Status Narrative [place] I Psychotic disorder. Cognitive impairment. Cocaine abuse. [place] II Deferred. [place] III As above. [place] IV Low. [place] V 20. PLAN: 1. We will start the patient on antipsychotics. 2. Discussed the case with the nurse. Assessment/Plan: [place] I Psychotic disorder. Cognitive impairment. Cocaine abuse. [place] II Deferred. [place] III As above. [place] IV Low. [place] V 20. PLAN: 1. We will start the patient on antipsychotics. 2. Discussed the case with the nurse. London Mckeon MD Apr 15, 2020 19:16
--- NOTE | 2020-04-15 19:35 | NUR ---
NURSE HAND-OFF REPORT: Important Events on Shift:Receiving HD Patient Status: Full code Diet: Renal Pending Orders: N/A Pending Results/Labs:Morning labs Pending MD notification:N/A Latest Vital Signs: Temperature 97.9 , Pulse 98 , B/P 173 /75 , Respiratory Rate 19 , O2 SAT 91 , Room Air, O2 Flow Rate 2.0 . Vital Sign Comment: Hypertensive EKG Rhythm: SR w/ BBB Rhythm change?: N MD Notified?: - MD Response: Latest Mcconnell Fall Score: 60 Fall Risk: High Risk Safety Measures: Call light Within Reach, Bed Alarm Zone 2, Side Rails Side Rails x3, Bed position Low and Locked. Fall Precautions: Yellow Socks Yellow Gown Door Sign Patient Fall Education Report given to Lexie/MARY .
--- NOTE | 2020-04-15 19:36 | NUR ---
NURSE NOTES: Patient in bed, awake and agitated. ANO x1. On 2L nasal cannula without signs of distress or SOB. Bilat soft wrist restraints in progress. Skin intact; pulses palpable. HD completed with MARY Hernandez - 3.5L out. Bed locked and in lowest position. Call light in reach. Bed alarm on. Will continue plan of care.
[2020-04-15 20:00] VITALS: BP 144/61
[2020-04-15] MEDS: Atorvastatin 20mg tab ORAL SCH (20:23)
[2020-04-15] MEDS: Iron Sucrose 100 MG in NS 55 ML IVPB SCH (23:20)
[2020-04-16] VITALS: BP 141/79
[2020-04-16] MEDS: LORazepam Inj 2mg/ml 1ml IV PRN (03:42)
[2020-04-16 03:54] VITALS: BP 159/85
--- NOTE | 2020-04-16 03:58 | NUR ---
NURSE NOTES: Patient is confused, agitated, and trying to get out of bed; also very combative, striking at multiple nurses throughout the shift. Talk therapy and reorientation unsuccessful. Ativan PRN given as ordered.
[2020-04-16] MEDS: HydrALAZINE 25mg tab ORAL SCH ×2 (05:27)
--- NOTE | 2020-04-16 06:28 | NUR ---
NURSE HAND-OFF REPORT: Important Events on Shift: Agitation, combative - Ativan given x2 Patient Status: Stable Diet: Renal Pending Orders: OB stool x2 - Unc Pending Results/Labs:Phos, Mag, BMP Pending MD notification: N/A Latest Vital Signs: Temperature 97.9 , Pulse 70 , B/P 159 /79 , Respiratory Rate 18 , O2 SAT 94 , Room Air, O2 Flow Rate 2.0 . Vital Sign Comment: N/A EKG Rhythm: SR w/1st AVb and BBB Rhythm change?: N MD Notified?: - MD Response: Latest Mcconnell Fall Score: 60 Fall Risk: High Risk Safety Measures: Call light Within Reach, Bed Alarm Zone 2, Side Rails Side Rails x3, Bed position Low and Locked. Fall Precautions: Yellow Socks Yellow Gown Door Sign Patient Fall Education
[2020-04-16 07:18] LABS: CALCIUM 8.5 MG/DL (8.5-10.1); CREATININE 3.7 MG/DL (0.55-1.30); PHOSPHORUS 3.4 MG/DL (2.5-4.9)
--- NOTE | 2020-04-16 07:38 | NUR ---
NURSE NOTES: Pt received from Lexie HERNANDEZ. Pt in bed agitated. restraints in place, pulses palpable, no swelling or redness noted. Bed low and locked, call light within reach.
[2020-04-16 08:00] VITALS: BP 167/72
[2020-04-16] MEDS: Aspirin Baby 81mg ORAL SCH (09:32)
[2020-04-16] MEDS: Benazepril 10mg tab ORAL SCH (09:32)
[2020-04-16] MEDS: Nephrovite tab (Rena-Vite) ORAL SCH (09:32)
[2020-04-16] MEDS: Vitamin B-12 500mcg tab ORAL SCH (09:33)
[2020-04-16] MEDS: Docusate 100mg cap ORAL SCH (09:33)
[2020-04-16] MEDS: Spironolactone 25mg tab ORAL SCH (09:33)
[2020-04-16] MEDS: Furosemide 40mg tab ORAL SCH (09:34)
[2020-04-16] MEDS: Carvedilol 25mg Tab ORAL SCH (09:34)
[2020-04-16] MEDS: Heparin 5000 units/ml inj SUBQ SCH (09:35)
--- NOTE | 2020-04-16 09:59 | Nephrology Progress Note ---
Assessment/Plan Plan #chest pain r/o ACS #ESRD on HD #acute on chronic anemia #Accelerated HTN #dementia with behavioural disturbance - HD tomorrow - check iron panel-> adequate - resume epo - check PTH/vitamin D - monitor mag and phos daily while inpatient - cardiology eval - resume [employer] antihypertensive - coreg 25mg BID - benaopril 20 BID - increase hydralazine to 50 QID - continue clonidine Time spent 65 min Subjective ROS Limited/Unobtainable: No Constitutional: Reports: weakness HEENT: Denies: no symptoms, eye pain, blurred vision, tearing, double vision, ear pain, ear discharge, nose pain, nose congestion, throat pain, throat swelling, mouth pain, mouth swelling, other Genitourinary: Denies: no symptoms, burning, discharge, frequency, flank pain, hematuria, incontinence, pain, urgency, other Neurologic/Psychiatric: Denies: no symptoms, anxiety, depressed, emotional problems, headache, numbness, paresthesia, pre-existing deficit, seizure, tingling, tremors, weakness, other Subjective no acute events s/p HD yesterday with 3.5L removed BP elevated Objective Objective Last 24 Hour Vital Signs Date Time Temp Pulse Resp B/P (MAP) Pulse Ox O2 Delivery O2 Flow Rate FiO2 04/16/20 09:34 67 167/72 04/16/20 09:32 167/72 04/16/20 08:00 98.6 76 19 167/72 (103) 92 04/16/20 08:00 66 04/16/20 05:27 159/79 04/16/20 05:27 159/79 04/16/20 04:12 70 18 159/79 94 04/16/20 04:00 73 04/16/20 03:54 97.9 71 20 159/85 (109) 96 04/16/20 03:42 71 20 159/85 96 04/16/20 00:00 72 04/16/20 00:00 98.0 74 20 141/79 (99) 96 04/16/20 00:00 74 20 141/79 95 04/15/20 23:30 79 24 144/81 95 04/15/20 21:00 Nasal Cannula 2.0 04/15/20 20:29 145/76 04/15/20 20:00 97.9 77 24 144/61 (88) 95 2/4/21 19:41 75 04/15/20 18:00 173/75 04/15/20 18:00 173/75 04/15/20 18:00 98 173/75 04/15/20 16:00 97.9 98 19 173/75 (107) 91 04/15/20 16:00 73 04/15/20 12:00 68 04/15/20 12:00 152/70 04/15/20 12:00 152/70 Intake and Output 04/15/20 04/16/20 19:00 07:00 Intake Total 480 ml Output Total 3500 ml Balance -3500 ml 480 ml Intake Oral 480 ml Hemodialysis UF 3500 ml # Voids 2 4 Laboratory Tests 04/16/20 05:54: Sodium Level 143, Potassium Level 4.0, Chloride Level 105, Carbon Dioxide Level 30, Anion Gap 8, Blood Urea Nitrogen 36H, Creatinine 3.7H, Estimat Glomerular Filtration Rate 12.0, Glucose Level 139H, Calcium Level 8.5, Phosphorus Level 3.4, Magnesium Level 1.8 Height (Feet): 5 Height (Inches): 7.00 Weight (Pounds): 115 Objective General Appearance: no apparent distress, alert EENT: PERRL/EOMI, normal ENT inspection Neck: non-tender, normal alignment Cardiovascular: normal peripheral pulses, normal rate, regular rhythm Respiratory/Chest: chest wall non-tender, lungs clear Abdomen: normal bowel sounds, non tender Extremities: normal range of motion Neurologic: alert, oriented x 3 Ace Munroe M.D. Apr 16, 2020 09:59
[2020-04-16] MEDS: HydrALAZINE 50mg tab ORAL SCH ×2 (10:00→12:49)
--- NOTE | 2020-04-16 10:00 | NUR ---
NURSE NOTES: Re non admin 10am hydralazine. Pt had taken ALL her morning meds including several BP meds only 15 minutes prior to 10am. Spoke to Dr. Munroe in person and explained that she just took all of them. Per MD use your nursing discretion. Rechecked BP and systolic was same, do not want to overdose her and have BP drop too low. She has clonadine and hydralazine due at 12. Will reassess then
--- NOTE | 2020-04-16 10:06 | NUR ---
Apparel Cutter: HARMEET called fro dialysis 04/17/20
[2020-04-16 12:00] VITALS: BP 171/88
[2020-04-16 12:50] VITALS: BP 171/88
--- NOTE | 2020-04-16 12:57 | NUR ---
*-*DISCHARGE PLANNED*-* PATIENT HAS BEEN ACCEPTED AND WILL BE DISCHARGE BACK TO: [facility] P: [phone] FOR NURSE TO NURSE REPORT. ROOM# 16.C [facility] SET FOR 3PM S/W [facility] [id number].
--- NOTE | 2020-04-16 14:35 | Cardiology Progress Note ---
Subjective DATE OF SERVICE: Apr 15, 2020 Difficult to manage due to psych issues and non-compliance No c/o chest pain; troponins clinically insignificant. Less aggressive and combative with staff No apparent SOB. Still with BP elevations/spikes at times. Objective Last 24 Hour Vital Signs Date Time Temp Pulse Resp B/P (MAP) Pulse Ox O2 Delivery O2 Flow Rate FiO2 04/16/20 12:50 171/88 04/16/20 12:49 171/88 04/16/20 12:00 97.6 72 19 171/88 (115) 95 04/16/20 12:00 73 04/16/20 09:34 67 167/72 04/16/20 09:32 167/72 04/16/20 09:00 Room Air 04/16/20 08:00 98.6 76 19 167/72 (103) 92 04/16/20 08:00 66 04/16/20 05:27 159/79 04/16/20 05:27 159/79 04/16/20 04:12 70 18 159/79 94 04/16/20 04:00 73 04/16/20 03:54 97.9 71 20 159/85 (109) 96 04/16/20 03:42 71 20 159/85 96 04/16/20 00:00 72 04/16/20 00:00 98.0 74 20 141/79 (99) 96 04/16/20 00:00 74 20 141/79 95 04/15/20 23:30 79 24 144/81 95 04/15/20 21:00 Nasal Cannula 2.0 04/15/20 20:29 145/76 04/15/20 20:00 97.9 77 24 144/61 (88) 95 04/15/20 19:41 75 04/15/20 18:00 173/75 04/15/20 18:00 173/75 04/15/20 18:00 98 173/75 04/15/20 16:00 97.9 98 19 173/75 (107) 91 04/15/20 16:00 73 HEENT: normal ENT inspection RHYTHM: NSR, PACs LUNGS: lungs clear bilaterally CARDIAC: regular rhythm, normal S1 and S2, gallop/S4 ABDOMEN: normal bowel sounds, non tender, soft, no organomegaly EXTREMITIES: normal range of motion, normal capillary refill, No edema Laboratory Tests Test 04/16/20 05:54 Sodium Level 143 MMOL/L (136-145) Potassium Level 4.0 MMOL/L (3.5-5.1) Chloride Level 105 MMOL/L (98-107) Carbon Dioxide Level 30 MMOL/L (21-32) Anion Gap 8 mmol/L (5-15) Blood Urea Nitrogen 36 mg/dL (7-18) H Creatinine 3.7 MG/DL (0.55-1.30) H Estimat Glomerular Filtration Rate 12.0 mL/min (>60) Glucose Level 139 MG/DL (74-106) H Calcium Level 8.5 MG/DL (8.5-10.1) Phosphorus Level 3.4 MG/DL (2.5-4.9) Magnesium Level 1.8 MG/DL (1.8-2.4) Assessment/Plan Assessment/Plan Missed dialysis session Acute coronary syndrome/troponin leak Hx cocaine abuse Ac/chronic systolic/diastolic CHF Pulmonary hypertension Permanent pacemaker Degenerative valve disease Metabolic encephalopathy ESRD Hypertension/HHD with hypertensive urgency Maximize anti-failure and antiHTN meds; will consider topical therapy HD/UF Attempting to get data on pacemaker - can be done as outpatient. Antiplt rx Sourav Montejo MD Apr 16, 2020 14:35
--- NOTE | 2020-04-16 14:57 | Cardiology Progress Note ---
Subjective DATE OF SERVICE: Apr 16, 2020 Difficult to manage due to psych issues and non-compliance No c/o chest pain; troponins clinically insignificant. Less aggressive and combative with staff No apparent SOB. Still with BP elevations/spikes at times. Objective Last 24 Hour Vital Signs Date Time Temp Pulse Resp B/P (MAP) Pulse Ox O2 Delivery O2 Flow Rate FiO2 04/16/20 12:50 171/88 04/16/20 12:49 171/88 04/16/20 12:00 97.6 72 19 171/88 (115) 95 04/16/20 12:00 73 04/16/20 09:34 67 167/72 04/16/20 09:32 167/72 04/16/20 09:00 Room Air 04/16/20 08:00 98.6 76 19 167/72 (103) 92 04/16/20 08:00 66 04/16/20 05:27 159/79 04/16/20 05:27 159/79 04/16/20 04:12 70 18 159/79 94 04/16/20 04:00 73 04/16/20 03:54 97.9 71 20 159/85 (109) 96 04/16/20 03:42 71 20 159/85 96 04/16/20 00:00 72 04/16/20 00:00 98.0 74 20 141/79 (99) 96 04/16/20 00:00 74 20 141/79 95 04/15/20 23:30 79 24 144/81 95 04/15/20 21:00 Nasal Cannula 2.0 04/15/20 20:29 145/76 04/15/20 20:00 97.9 77 24 144/61 (88) 95 04/15/20 19:41 75 04/15/20 18:00 173/75 04/15/20 18:00 173/75 04/15/20 18:00 98 173/75 04/15/20 16:00 97.9 98 19 173/75 (107) 91 04/15/20 16:00 73 HEENT: normal ENT inspection RHYTHM: NSR, PACs LUNGS: lungs clear bilaterally CARDIAC: regular rhythm, normal S1 and S2, gallop/S4 ABDOMEN: normal bowel sounds, non tender, soft, no organomegaly EXTREMITIES: normal range of motion, normal capillary refill, No edema Laboratory Tests Test 04/16/20 05:54 Sodium Level 143 MMOL/L (136-145) Potassium Level 4.0 MMOL/L (3.5-5.1) Chloride Level 105 MMOL/L (98-107) Carbon Dioxide Level 30 MMOL/L (21-32) Anion Gap 8 mmol/L (5-15) Blood Urea Nitrogen 36 mg/dL (7-18) H Creatinine 3.7 MG/DL (0.55-1.30) H Estimat Glomerular Filtration Rate 12.0 mL/min (>60) Glucose Level 139 MG/DL (74-106) H Calcium Level 8.5 MG/DL (8.5-10.1) Phosphorus Level 3.4 MG/DL (2.5-4.9) Magnesium Level 1.8 MG/DL (1.8-2.4) Assessment/Plan Assessment/Plan Missed dialysis session Acute coronary syndrome/troponin leak Hx cocaine abuse Ac/chronic systolic/diastolic CHF Pulmonary hypertension Permanent pacemaker Degenerative valve disease Metabolic encephalopathy ESRD Hypertension/HHD with hypertensive urgency Continue current anti-failure and antiHTN meds; will add topical clonidine at [facility]. HD/UF 3x/wk as outpatient Attempting to get data on pacemaker - will be interrogated as outpatient. Antiplt rx and statin drug [facility]. Sourav Montejo MD Apr 16, 2020 14:57
[2020-04-16] MEDS ORDERED: NS 275ml ONE (15:19)
[2020-04-16] MEDS ORDERED: Tubing IV Secondary IV ONE (15:19)
--- NOTE | 2020-04-16 15:24 | NUR ---
*-*DISCHARGE PLANNED*-* PATIENT HAS BEEN ACCEPTED AND WILL BE DISCHARGE TO: [facility] P: [phone] FOR NURSE TO NURSE REPORT. ROOM# 104.D [facility] TRANSP[facility] SET FOR 3:15PM S/W [facility] [id number].
--- NOTE | 2020-04-16 15:28 | NUR ---
NURSE NOTES: Pt picked up by ambulance. telel box removed, Iv removed. Report given to Jack HERNANDEZ. Belongings will be picked up by [facility]ado staff from downstairs as clothing left in pts room by transport.
--- NOTE | 2020-04-16 16:00 | NUR ---
NURSE NOTES: Called back to clarify that next dialysis date should be tomorrow.
--- NOTE | 2020-04-16 16:14 | Discharge Summary ---
DATE OF ADMISSION: 04/11/2020 DATE OF DISCHARGE: 04/16/2020 ADMISSION DIAGNOSES: Altered mental status; hypertension; end-stage renal disease; anemia, rule out GI bleed; toxic and metabolic encephalopathy. DISCHARGE DIAGNOSES: Altered mental status; hypertension; end-stage renal disease; anemia, rule out GI bleed; toxic and metabolic encephalopathy. HISTORY OF PRESENT ILLNESS AND HOSPITAL COURSE: The patient is a 74-year-old female that was transferred with complaints of altered mental status and anemia. She is confused at baseline and is a poor historian. She was noted to be severely anemic. She had no evidence or signs of bleeding. She required 2 units of packed red blood cells. Her hospital course was complicated by [id number] hypertension as well as agitation and combative, aggressive behavior. Psychiatric consultation was obtained. The patient was started on Topamax and Seroquel with some improvement. DISCHARGE CONDITION: Stable. DISPOSITION: She [facility] be [facility]. DISCHARGE MEDICATIONS: Please see discharge medication list for discharge medications. DIET: Renal diet. ACTIVITY: Ad-pancho. FOLLOWUP: The patient to follow up in 1 to 2 days at the jail facility. Laurent Epperson M.D. DR: Christian JOB#: [id number] CC:
--- NOTE | 2020-04-16 18:42 | NUR ---
NURSE NOTES: Received call from admission nurse from SNF. She wanted to clarify dialysis schedule. Confirmed with her that pt should receive dialysis tomorrow (this is based off of Dr. Munroe placing a dialysis order for tomorrow). Per nurse, she will call MD and get an order for a chair at dialysis tomorrow.
== END 2020-04-16 15:20 | DRG 640 ==
LOC: EDBD 06:11 → EDUNIT# 06:11 → EMR 06:42 → 2E 07:15 → EDBEDREQ 09:54
PROC: 30233N1 Transfusion of Nonautologous Red Blood Cells into Peripheral Vein, Percutaneous Approach (ICD-10-PCS; principal; 2020-04-11)
DX: E87.79 Other fluid overload (principal); N18.6 End stage renal disease; I50.43 Acute on chronic combined systolic (congestive) and diastolic (congestive) heart failure; G92 Toxic encephalopathy; F03.91 Unspecified dementia, unspecified severity, with behavioral disturbance; I13.2 Hypertensive heart and chronic kidney disease with heart failure and with stage 5 chronic kidney disease, or end stage renal disease; I13.11 Hypertensive heart and chronic kidney disease without heart failure, with stage 5 chronic kidney disease, or end stage renal disease; I24.9 Acute ischemic heart disease, unspecified; Z88.6 Allergy status to analgesic agent; Z88.0 Allergy status to penicillin; Z88.2 Allergy status to sulfonamides; Z86.16 Personal history of COVID-19; Z99.2 Dependence on renal dialysis; Z91.15 Patient's noncompliance with renal dialysis; D64.9 Anemia, unspecified; I27.20 Pulmonary hypertension, unspecified; F14.10 Cocaine abuse, uncomplicated; I16.0 Hypertensive urgency
CPT/HCPCS: 36415; 71045; 80048; 80053; 82306; 82550; 82728; 83540; 83550; 83690; 83735; 83880; 83970; 84100; 84443; 84484; 85007; 85025; 86140; 86706; 86850; 86900; 86901; 86920; 87081; 93005; 96372; 96374; 96375; 99291; G0480; J2765

== ENCOUNTER 2020-04-20 04:13 | Inpatient (IN) | payer MEDICARE, OTHER ==
[2020-04-20] VITALS (8 sets, daily range): BP systolic 99–185; BP diastolic 51–88
[~2020-04-20] VITALS: Ht 165.1 cm; Wt 59.0 kg
[~2020-04-20 04:13] MED LIST: ASPIRIN81 MG ORAL; ATIVAN1 MG ORAL; BENAZEPRIL HCL20 MG ORAL; CARVEDILOL25 MG ORAL; CATAPRES0.1 MG ORAL; DIGOXIN250 MCG ORAL; DOCUSATE SODIU100 MG ORAL; FERROUS SULFAT325 MG ORAL; FUROSEMIDE40 MG ORAL; HYDRALAZINE HCL25 M1 ORAL; LIPITOR20 MG ORAL; MILK OF MA400 MG/51 ORAL; MIRALAX17 G2 ORAL; NEPHROVITE1 TAB ORAL; SEROQUEL25 MG ORAL; SPIRONOLACTONE25 MG ORAL; TOPIRAMATE25 MG ORAL; TRAMADOL HCL50 MG ORAL; VENTOLIN HFA18 GM INH; VITAMIN B122500 MCG PO; VITAMIN C250 MG ORAL
--- NOTE | 2020-04-20 04:26 | Emergency Room Report ---
History of Present Illness General Chief Complaint: sob Source: Medical Record, EMS (Gabriella Milian M.D.) Present Illness HPI Patient is a 74-year-old female past medical history of hypertension, end-stage renal disease on dialysis, CHF, anemia, opiate abuse, bipolar disorder, anxiety, schizophrenia and chronic pain syndrome who is sent in from her extended care facility for shortness of breath. Per EMS patient was noted to be short of breath this evening and EMS was called. They state that her oxygen saturation was in the 80s when they arrived. Patient has been placed on supplemental oxygen and oxygen saturation is now in the mid 90s. Per EMS patient only received 40 minutes of her last dialysis. Patient is on Lasix. Unable to obtain further history at this time as patient is nonverbal (Gabriella Milian M.D.) Allergies: Coded Allergies: MORPHINE (Unverified Allergy, Unknown, 04/11/20) PENICILLINS (Unverified Allergy, Unknown, 04/11/20) SULFA (SULFONAMIDE ANTIBIOTICS) (Verified Allergy, Unknown, 02/24/20) COVID-19 Screening Contact w/high risk pt: No Recent Travel to affected area: No Experienced COVID-19 symptoms?: No (Gabriella Milian M.D.) Patient History Reviewed Nursing Documentation: PMH: Agreed; PSxH: Agreed (Gabriella Milian M.D.) Nursing Documentation-PMH Hx Cardiac Problems: Yes - afib, pacemaker Hx COPD: Yes Hx Cancer: No Hx Gastrointestinal Problems: Yes - chronic viral hepatitis B Hx Neurological Problems: No (Gabriella Milian M.D.) Review of Systems All Other Systems: limited - non-verbal (Gabriella Milian M.D.) Physical Exam Sp02 EP Interpretation: reviewed, abnormal (Gabriella Milian M.D.) Procedures Critical Care Time Critical Care Time Total critical care time: Approximately 35 minutes. Due to a high probability of clinically significant, life threatening deterioration, the patient required my highest level of preparedness to intervene emergently and I personally spent this critical care time directly and personally managing the patient. This critical care time included obtaining a history; examining the patient; pulse oximetry; ordering and review of studies; arranging urgent treatment with development of a management plan; evaluation of patient's response to treatment; frequent reassessment; and, discussions with other providers.This critical care time was performed to assess and manage the high probability of imminent, life- threatening deterioration that could result in multi-organ failure. It was exclusive of separately billable procedures and treating other patients and teaching time. Please see MDM section and the rest of the note for further information on patient assessment and treatment. (Gabriella Milian M.D.) Critical Care Time Total Critical Care Time: 35 min bedside evaluation and treatment excludes procedures (EKG). Reason for critical care: Hypoxia, pulmonary edema, hyperkalemia, consideration for sedation Possible complications: hypotension, hypertension, NE, shock, arrhythmias, metabolic acidosis, end organ damage, respiratory failure. Interventions: BiPAP, repeat evaluations, treatment of hyperkalemia, treatment of non-STEMI Course: Patient signed out to me on BiPAP improving with hypoxia prior. Cefepime had been ordered. Repeat labs performed revealed hyperkalemia. This is treated with calcium and bicarbonate. Patient has mixed acidosis. Clinically improving. Discussion of performance of CTA with radiology and nursing staff. Consideration for sedation. This was not needed. Discussion with admitting physician. Patient improved. NSTEMI treated. Consultations: nursing staff, radiology, admitting physician, respiratory therapy Performed by: Dr. Pretty Tolerated well condition = critical (Sourav Pretty MD) Medical Decision Making Diagnostic Impression: Primary Impression: Respiratory distress Additional Impressions: Hypoxia Encephalopathy CHF (congestive heart failure) Qualified Codes: I50.9 - Heart failure, unspecified End stage renal disease on dialysis Hyperkalemia NSTEMI (non-ST elevated myocardial infarction) ER Course Patient presented with respiratory distress and hypoxia. Patient with worsening encephalopathy. Patient placed on BiPAP and appears to be more responsive on BiPAP. Patient pending labs and radiologic exams but anticipate admission to stepdown unit. Patient signed out to Dr. Pretty at 0600. (Gabriella Milian M.D.) ER Course Please see above note. Pt improving on BiPAP. + troponin, elevated lactate, hemolyzed with elevated troponin, elevated digoxin. LBBB with peaked T waves. Digibind not indicated (and concern with renal failure) - no evidence of cardiac toxicity. Repeat CMP and consider treat K if high. K is 6.7 (with peaked T waves). Also mixed acidosis. Calcium and bicarb ordered. [address] Munroe. Versed ordered for CT. Versed not needed for CTs. Patient admitted to stepdown unit. Patient needs dialysis. Laboratory Tests Test 04/20/20 04:24 04/20/20 05:00 04/20/20 06:12 Arterial Blood pH 7.257 (7.350-7.450) Arterial Blood Partial Pressure CO2 50.9 mmHg (35.0-45.0) H Arterial Blood Partial Pressure O2 334.0 mmHg (75.0-100.0) H Arterial Blood HCO3 22.2 mmol/L (22.0-26.0) Arterial Blood Oxygen Saturation 99.4 % (95-100) Arterial Blood Base Excess -4.9 (-2-2) L Venkata Test Positive White Blood Count 16.6 K/UL (4.8-10.8) H Red Blood Count 3.16 M/UL (4.20-5.40) L Hemoglobin 9.2 G/DL (12.0-16.0) L Hematocrit 29.3 % (37.0-47.0) L Mean Corpuscular Volume 93 FL (80-99) Mean Corpuscular Hemoglobin 29.0 PG (27.0-31.0) Mean Corpuscular Hemoglobin Concent 31.3 G/DL (32.0-36.0) L Red Cell Distribution Width 16.8 % (11.6-14.8) H Platelet Count 133 K/UL (150-450) L Mean Platelet Volume 8.4 FL (6.5-10.1) Neutrophils (%) (Auto) % (45.0-75.0) Lymphocytes (%) (Auto) % (20.0-45.0) Monocytes (%) (Auto) % (1.0-10.0) Eosinophils (%) (Auto) % (0.0-3.0) Basophils (%) (Auto) % (0.0-2.0) Prothrombin Time 16.2 SEC (9.30-11.50) H Prothrombin Time INR 1.5 (0.9-1.1) H Activated Partial Thromboplast Time 28 SEC (23-33) D-Dimer 19.86 mg/L FEU (0.00-0.49) H Sodium Level 139 MMOL/L (136-145) Potassium Level 6.7 MMOL/L (3.5-5.1) *H Chloride Level 98 MMOL/L (98-107) Carbon Dioxide Level 20 MMOL/L (21-32) L Anion Gap 19 mmol/L (5-15) H Blood Urea Nitrogen 89 mg/dL (7-18) H Creatinine 6.0 MG/DL (0.55-1.30) H Estimated Glomerular Filtration Rate 6.9 mL/min (>60) Glucose Level 77 MG/DL (74-106) Lactic Acid Level 4.10 mmol/L (0.4-2.0) H 1.90 mmol/L (0.66-2.22) Calcium Level 8.7 MG/DL (8.5-10.1) Magnesium Level 2.0 MG/DL (1.8-2.4) Ferritin 1325 NG/ML (8-388) H Total Bilirubin 1.3 MG/DL (0.2-1.0) H Direct Bilirubin 0.9 MG/DL (0.0-0.3) H Aspartate Amino Transferase (AST) 141 U/L (15-37) H Alanine Aminotransferase (ALT) 67 U/L (12-78) Alkaline Phosphatase 296 U/L (46-116) H Lactate Dehydrogenase 490 U/L (81-234) H Total Creatine Kinase 104 U/L (26-308) Troponin I 0.743 ng/mL (0.000-0.056) C-Reactive Protein, Quantitative > 70.0 mg/dL (0.00-0.90) H Pro-B-Type Natriuretic Peptide > 92764 pg/mL (0-125) H Total Protein 7.8 G/DL (6.4-8.2) Albumin 2.8 G/DL (3.4-5.0) L Globulin 5.0 g/dL Albumin/Globulin Ratio 0.6 (1.0-2.7) L Lipase 45 U/L (73-393) L Digoxin Level 3.3 NG/ML (0.9-2.0) *H (Sourav Pretty MD) EKG Diagnostic Results Troponin ordered: Yes When was troponin ordered?: Apr 20, 2020 EKG Time: 05:12 EP Interpretation: Gabriella Milian MD Rate: normal Rhythm: NSR ST Segments: no acute changes Other Impression Left bundle branch block ASA given to the pt in ED: No (Gabriella Milian M.D.) Rate: tachycardiac Rhythm: NSR ST Segments: no acute changes - LBBB with peaked T waves ASA given to the pt in ED: Yes (Sourav Pretty MD) Rhythm Strip Diag. Results Rhythm Strip Time: 05:18 EP Interpretation: yes Rate: 82 bpm Rhythm: NSR, no PVC's, no ectopy (Gabriella Milian M.D.) EP Interpretation: yes Rhythm: NSR, no PVC's, no ectopy (Sourav Pretty MD) Chest X-Ray Diagnostic Results Chest X-Ray Diagnostic Results : Chest X-Ray Ordered: Yes # of Views/Limited/Complete: 1 View Indication: Shortness of Breath EP Interpretation: Yes Interpretation: no effusion, no pneumothorax, other - Cardiomegaly mild increased pulmonary vasculature Impression: Other - CHF Electronically Signed by: Gabriella Milian MD (Gabriella Mliian M.D.) Chest X-Ray Diagnostic Results : Chest X-Ray Ordered: Yes # of Views/Limited/Complete: 1 View Indication: Shortness of Breath EP Interpretation: Yes Interpretation: no effusion, no pneumothorax, other - Increase domingo c onsistent with pulmonary edema Impression: Other Electronically Signed by: Electronically signed by Sourav Pretty MD (Sourav Pretty MD) CT/MRI/US Diagnostic Results CT/MRI/US Diagnostic Results #1: Imaging Test Ordered: Head Impression Age-related changes without intracranial bleed CT/MRI/US Diagnostic Results #2: Imaging Test Ordered: CTA chest Impression Impression: No evidence of acute pulmonary embolus or other acute thoracic vascular pathology. Marked cardiomegaly Diffuse pulmonary mosaic attenuation pattern and interstitial septal thickening, likely on the basis of pulmonary edema, given the cardiac enlargement Multiple scattered nodular appearing opacities throughout both lungs. Most likey localized foci of acute pulmonary edema. However, these could also represent foci of inflammation/infection, chronic postinflammatory changes. Any of these could also represent neoplastic deposits. Evidence of bullous COPD Evidence of anasarca. Pacemaker and tunneled dialysis catheter also noted. (Sourav Pretty MD) Last Vital Signs Date Time Temp Pulse Resp B/P (MAP) Pulse Ox O2 Delivery O2 Flow Rate FiO2 2/9/21 20:15 68 106/73 04/20/20 20:00 Bi-pap 04/20/20 20:00 98.7 24 92 04/20/20 19:15 50 04/20/20 16:00 15.0 Status: improved (Sourav Pretty MD) Disposition: ADMITTED INPATIENT Condition: Critical Referrals: Ace Munroe M.D. (PCP) Additional Instructions: Please note that this report is being documented using [employer] technology. This can lead to erroneous entry secondary to incorrect interpretation by the dictating instrument. Gabriella Milian M.D. Apr 20, 2020 04:26 Sourav Pretty MD Apr 20, 2020 06:03
--- NOTE | 2020-04-20 05:00 | NUR ---
ED Nurse Note: patient came in through EMS from [facility] hx of dialysis, and end stage renal disease, she was only able to tolerate 40 mins of last dialysis session, home cfalled because she started to have decreased o2 levels.
--- NOTE | 2020-04-20 05:00 | NUR ---
ED Nurse Note: Blo0od cultures, Blood specimen, COVID swab, VRE/MRSA sent to lab
[2020-04-20 05:17] LABS: HEMATOCRIT 29.3 % (37.0-47.0); HEMOGLOBIN 9.2 G/DL (12.0-16.0); MEAN CORPUSCULAR VOLUME 93 FL (80-99); PLATELET COUNT 133 K/UL (150-450); RED BLOOD COUNT 3.16 M/UL (4.20-5.40); RED CELL DISTRIBUTION WIDTH 16.8 % (11.6-14.8); WHITE BLOOD COUNT 16.6 K/UL (4.8-10.8)
[2020-04-20] MEDS ORDERED: Cefepime HCl 2 GM in D5W 55 ML IVPB ONE (05:30)
[2020-04-20] MEDS ORDERED: Vancomycin 1 GM in NS 275 ML IVPB ONE (05:30)
[2020-04-20 05:41] LABS: INR 1.5 (0.9-1.1)
[2020-04-20] MEDS ORDERED: Omnipaque 350 100ml vial INJ PRN (06:00)
--- NOTE | 2020-04-20 06:18 | NUR ---
ED Nurse Note: re-sent blood specimens
[2020-04-20] MEDS ORDERED: Vancomycin 1gm vial IVPB ONE (06:26)
--- NOTE | 2020-04-20 06:34 | NUR ---
CASE MANAGEMENT:REVIEW 74 YR OLD FEMALE BIBA FROM [facility] CC: SOB PMH: ESRD ON HD SI: RESPIRATORY FAILURE 99.5 87 29 96% ON 15L/ NRB WBC+16.6 TROPONIN (+) 0.74 LACTIC ACID+0.743 PCO2+50.9 IS: PLACED ON BIPAP 40% FIO2 IV LASIX IV VANCOMYCIN IV CEFEPIME ASA IA CXR NOVEL COVID : TO STEP DOWN UNIT
[2020-04-20 06:47] LABS: ALANINE AMINOTRANSFERASE 67 U/L (12-78); ALBUMIN 2.8 G/DL (3.4-5.0); ALBUMIN/GLOBULIN RATIO 0.6 (1.0-2.7); ALKALINE PHOSPHATASE 296 U/L (46-116); ANION GAP 19 mmol/L (5-15); ASPARTATE AMINO TRANSFERASE 141 U/L (15-37); BLOOD UREA NITROGEN 89 mg/dL (7-18); CALCIUM 8.7 MG/DL (8.5-10.1); CARBON DIOXIDE 20 MMOL/L (21-32); CHLORIDE 98 MMOL/L (98-107); CREATINE KINASE 104 U/L (26-308); FERRITIN 1325 NG/ML (8-388); LACTATE DEHYDROGENASE 490 U/L (81-234); SODIUM 139 MMOL/L (136-145)
[2020-04-20 06:53] LABS: POTASSIUM 6.7 MMOL/L (3.5-5.1)
[2020-04-20] MEDS ORDERED: Calcium Gluconate 1gm/10ml vial IVP ONE (07:00)
[2020-04-20 07:15] LABS: BILIRUBIN,TOTAL 1.3 MG/DL (0.2-1.0)
[2020-04-20] MEDS ORDERED: Sodium Bicarbonate 50ml Carp IV ONE (07:15)
[2020-04-20 07:31] LABS: BILIRUBIN,DIRECT 0.9 MG/DL (0.0-0.3)
--- NOTE | 2020-04-20 07:39 | Consultation ---
History of Present Illness General Chief Complaint: Dyspnea/Respdistress Reason for Consultation: ESRD on HD Present Illness HPI This is a 74-year-old female with past medical history of hypertension, COPD, ESRD on dialysis, CHF, anemia, opiate abuse, bipolar disorder, anxiety, schi zophrenia, and chronic pain syndrome, who was sent to ED from [facility] for shortness of breath. Patient was reported to be short of breath last night and EMS was called. Patient was reported to be hypoxic on arrival and was placed on supplemental oxygen. Since then, patient was placed on BiPAP. She had elevated troponin, lactate, digoxin, and potassium. Potassium was 6.7 with peaked T waves. The initial blood gas revealed respiratory acidosis. CT angio of the chest with contrast revealed no evidence of acute pulmonary embolus or other acute thoracic vascular pathology. CT of head was negative for acute intracranial bleed or mass-effect. Patient is unable to provide any history as she is confused. PAST MEDICAL HISTORY: As above MEDICATIONS: Pacemaker ALLERGIES: Morphine, penicillin, sulfa FAMILY HISTORY: Noncontributory PERSONAL/SOCIAL HISTORY: Resident of [facility], no known history of tobacco, alcohol or drugs REVIEW OF SYSTEMS: Unobtainable Allergies: Coded Allergies: MORPHINE (Unverified Allergy, Unknown, 04/11/20) PENICILLINS (Unverified Allergy, Unknown, 04/11/20) SULFA (SULFONAMIDE ANTIBIOTICS) (Verified Allergy, Unknown, 02/24/20) Medication History Scheduled Ascorbic Acid* (Vitamin C*), 250 MG ORAL DAILY, (Reported) Aspirin* (Aspirin*), 81 MG ORAL DAILY, (Reported) Atorvastatin Calcium* (Lipitor*), 20 MG ORAL BEDTIME, (Reported) Benazepril Hcl* (Benazepril Hcl*), 20 MG ORAL EVERY 12 HOURS, (Reported) Carvedilol* (Carvedilol*), 25 MG ORAL EVERY 12 HOURS, (Reported) Cyanocobalamin (Vitamin B-12) (Vitamin B12), 1,000 MCG PO DAILY, (Reported) Digoxin* (Digoxin*), 0.25 MG ORAL every 48 hours, (Reported) Docusate Sodium* (Docusate Sodium*), 100 MG ORAL TWICE A DAY, (Reported) Ferrous Sulfate* (Ferrous Sulfate*), 325 MG ORAL DAILY, (Reported) Furosemide* (Lasix*), 40 MG ORAL DAILY, (Reported) Hydralazine Hcl* (Hydralazine Hcl*), 25 MG ORAL EVERY 12 HOURS, (Reported) Lorazepam* (Ativan*), 1 MG ORAL BID, (Reported) Polyethylene Glycol 3350* (Miralax*), 17 GM ORAL DAILY, (Reported) Quetiapine Fumarate* (Seroquel*), 25 MG ORAL MWF, (Reported) Spironolactone* (Aldactone*), 25 MG ORAL DAILY, (Reported) Topiramate* (Topamax*), 25 MG ORAL TWICE A DAY, (Reported) Vitamin B Cmplx/Vit C/Folic AC (Nephro-Leila Tablet), 1 TAB ORAL DAILY, (Reported) Scheduled PRN Albuterol Sulfate (Ventolin Hfa), 2 PUFFS INH EVERY 6 HOURS PRN for COPD, (Reported) Clonidine Hcl* (Catapres*), 0.1 MG ORAL EVERY 6 HOURS PRN for SBP>160, (Reported) Magnesium Hydroxide* (Milk Of Magnesia*), 30 ML ORAL DAILY PRN for Constipation, (Reported) Tramadol Hcl* (Ultram*), 50 MG ORAL Q6H PRN for For Pain, (Reported) Patient History Healthcare decision maker Resuscitation status Advanced Directive on File Physical Exam Last 24 Hour Vital Signs Date Time Temp Pulse Resp B/P (MAP) Pulse Ox O2 Delivery O2 Flow Rate FiO2 04/20/20 06:48 99.5 88 27 166/88 100 Bi-pap 04/20/20 05:24 Bi-pap 40 04/20/20 05:05 79 36 100 40 04/20/20 04:16 99.5 87 29 162/70 (100) 96 Non-Rebreather 15.0 Intake and Output 04/19/20 04/20/20 19:00 07:00 Intake Total 0 ml Balance 0 ml Intake Oral 0 ml Laboratory Tests Test 04/20/20 04:24 04/20/20 05:00 04/20/20 06:12 Arterial Blood pH 7.257 (7.350-7.450) Arterial Blood Partial Pressure CO2 50.9 mmHg (35.0-45.0) H Arterial Blood Partial Pressure O2 334.0 mmHg (75.0-100.0) H Arterial Blood HCO3 22.2 mmol/L (22.0-26.0) Arterial Blood Oxygen Saturation 99.4 % (95-100) Arterial Blood Base Excess -4.9 (-2-2) L Venkata Test Positive White Blood Count 16.6 K/UL (4.8-10.8) H Red Blood Count 3.16 M/UL (4.20-5.40) L Hemoglobin 9.2 G/DL (12.0-16.0) L Hematocrit 29.3 % (37.0-47.0) L Mean Corpuscular Volume 93 FL (80-99) Mean Corpuscular Hemoglobin 29.0 PG (27.0-31.0) Mean Corpuscular Hemoglobin Concent 31.3 G/DL (32.0-36.0) L Red Cell Distribution Width 16.8 % (11.6-14.8) H Platelet Count 133 K/UL (150-450) L Mean Platelet Volume 8.4 FL (6.5-10.1) Neutrophils (%) (Auto) % (45.0-75.0) Lymphocytes (%) (Auto) % (20.0-45.0) Monocytes (%) (Auto) % (1.0-10.0) Eosinophils (%) (Auto) % (0.0-3.0) Basophils (%) (Auto) % (0.0-2.0) Prothrombin Time 16.2 SEC (9.30-11.50) H Prothromb Time International Ratio 1.5 (0.9-1.1) H Activated Partial Thromboplast Time 28 SEC (23-33) D-Dimer 19.86 mg/L FEU (0.00-0.49) H Sodium Level 139 MMOL/L (136-145) Potassium Level 6.7 MMOL/L (3.5-5.1) *H Chloride Level 98 MMOL/L (98-107) Carbon Dioxide Level 20 MMOL/L (21-32) L Anion Gap 19 mmol/L (5-15) H Blood Urea Nitrogen 89 mg/dL (7-18) H Creatinine 6.0 MG/DL (0.55-1.30) H Estimat Glomerular Filtration Rate 6.9 mL/min (>60) Glucose Level 77 MG/DL (74-106) Lactic Acid Level 4.10 mmol/L (0.4-2.0) H 1.90 mmol/L (0.66-2.22) Calcium Level 8.7 MG/DL (8.5-10.1) Magnesium Level 2.0 MG/DL (1.8-2.4) Ferritin 1325 NG/ML (8-388) H Total Bilirubin 1.3 MG/DL (0.2-1.0) H Direct Bilirubin 0.9 MG/DL (0.0-0.3) H Aspartate Amino Transf (AST/SGOT) 141 U/L (15-37) H Alanine Aminotransferase (ALT/SGPT) 67 U/L (12-78) Alkaline Phosphatase 296 U/L (46-116) H Lactate Dehydrogenase 490 U/L (81-234) H Total Creatine Kinase 104 U/L (26-308) Troponin I 0.743 ng/mL (0.000-0.056) C-Reactive Protein, Quantitative > 70.0 mg/dL (0.00-0.90) H Pro-B-Type Natriuretic Peptide > 27799 pg/mL (0-125) H Total Protein 7.8 G/DL (6.4-8.2) Albumin 2.8 G/DL (3.4-5.0) L Globulin 5.0 g/dL Albumin/Globulin Ratio 0.6 (1.0-2.7) L Lipase 45 U/L (73-393) L Digoxin Level 3.3 NG/ML (0.9-2.0) *H Height (Feet): 5 Height (Inches): 5.00 Weight (Pounds): 130 Medications Current Medications Medications (Trade) Dose Ordered Sig/Sugey Route PRN Reason Start Time Stop Time Status Last Admin Dose Admin Iohexol (Omnipaque 350 100ml) 100 ml NOW PRN INJ Radiology Procedure 04/20/20 06:00 04/22/20 05:59 Assessment/Plan Diagnosis [facility] I: #ESRD on HD #Hyperkalemia #Volume overload #HTN #Resp failure on bipap #AMS - admit to PCU - HD stat - BP control - continue bipap - pulm eval - cardiology eval - monitor lytes - monitor wights - strict I&Os time spent 65 min Ace Munroe M.D. Apr 20, 2020 07:39
[2020-04-20] MEDS ORDERED: Midazolam 2mg/2ml Inj IVP ONE (08:00)
--- NOTE | 2020-04-20 08:13 | NUR ---
ED Nurse Note: pt on bipap. waiting for ct then will transfer pt to room. medications on hold if needed for anxiety while going to ct.
--- NOTE | 2020-04-20 08:56 | Diagnostic Imaging Report ---
Indications: Altered mental status Technique: Spiral acquisitions obtained through the brain. Angled axial and coronal 5 x 5 mm slices were reconstructed. Total dose length product 1205 mGycm. CTDI vol(s) 53 mGy. Dose reduction achieved using automated exposure control Comparison: 02/24/2020 Findings: Again demonstrated is age-related enlargement of the ventricles and extra-axial CSF spaces. Periventricular deep white matter low attenuation likely indicates chronic microvascular ischemic change. Normal ellsworth-white differentiation otherwise. No acute intracranial hemorrhage or edema, mass effect, nor midline shift. The mastoids are clear. The calvarium is intact. The lungs orbits and sinuses are unremarkable. Impression: Chronic and age related changes. Negative for acute intracranial bleed or mass effect The CT scanner at [facility] is accredited by the [employer] and the scans are performed using protocols designed to limit radiation exposure to as low as reasonably achievable to attain images of sufficient resolution adequate for diagnostic evaluation.
--- NOTE | 2020-04-20 09:29 | History and Physical Report ---
DATE OF ADMISSION: 04/20/2020 CHIEF COMPLAINT: Respiratory failure, agitation, encephalopathy. HISTORY OF PRESENT ILLNESS: Patient is a 74-year-old female, known to me from prior admission. She has a history of end-stage renal disease, dementia with behavioral disturbance, hypertension, congestive heart failure, dementia who presented from a correction facility with complaints of shortness of breath and respiratory distress. She has refused hemodialysis. On evaluation in the emergency room, she was noted to be hypoxic. She was initially placed on a non-rebreather mask, but later placed on BiPAP. Her ABG showed respiratory acidosis. Laboratories were significant for a digoxin level 3.3, white count of 16,000, potassium 6.7, natriuretic peptide level greater than 35,000, and elevated troponin of 0.743. She is now admitted for further evaluation and care. Patient is unable to provide any history as she is confused. PAST MEDICAL HISTORY: As above. PAST SURGICAL HISTORY: None. CURRENT MEDICATIONS: Reconciled and reviewed. ALLERGIES: Include morphine, penicillin, and sulfa. FAMILY HISTORY: Noncontributory. SOCIAL HISTORY: There is no known history of tobacco, ethanol, or drugs. REVIEW OF SYSTEMS: From the patient is unobtainable. PHYSICAL EXAMINATION: VITAL SIGNS: Temperature 99.5, pulse 88, respirations 27, blood pressure 166/88. GENERAL: Patient is chronically ill-appearing, thin frail female, in moderate amount of respiratory distress. Currently on BiPAP. HEENT: Head normocephalic, atraumatic. Sclerae anicteric. Oropharynx clear. NECK: Supple. HEART: Regular rate and rhythm. LUNGS: Significant for scattered rhonchi. ABDOMEN: Soft, nontender, nondistended. EXTREMITIES: Without clubbing, cyanosis, or edema. LABORATORY DATA: White count 16, hemoglobin 9, platelets 133. Sodium 139, potassium 6.7, bicarb 20, BUN 89, creatinine was 6. Lactic acid was 4. Troponin 0.743. Natriuretic peptide level is greater than 35,000. ASSESSMENT: This is a 74-year-old female with a history of end-stage renal disease, hypertension, dementia with behavioral disturbance admitted with complaints of respiratory failure secondary to CHF exacerbation, cannot rule out underlying pneumonia. She is also noted to be digitoxic. She has an elevated troponin, likely secondary to demand. PLAN: Continue BiPAP. Urgent hemodialysis. Titrate antihypertensive regimen. Follow up chest x-ray. We will check a venous duplex of the legs. DVT and stress ulcer prophylaxes will be started. Patient's status is currently guarded. Laurent Epperson M.D. DR: FERNANDO JOB#: [id number] CC:
[2020-04-20] MEDS ORDERED: Nephrovite tab (Rena-Vite) ORAL SCH (09:30)
[2020-04-20] MEDS ORDERED: Aspirin Baby 81mg ORAL SCH (09:30)
[2020-04-20] MEDS ORDERED: Miralax 17gm pkt ORAL SCH (09:30)
[2020-04-20] MEDS: HydrALAZINE 25mg tab ORAL SCH ×2 (09:30→20:14)
--- NOTE | 2020-04-20 09:52 | Diagnostic Imaging Report ---
ndication: Shortness of breath Technique: IV administration nonionic contrast. Spiral acquisitions obtained from the lung bases to the lung apices. Multiplanar and 3-D reconstructions were generated on an integrated workstation. Total dose length product 161 mGycm. CTDIvol(s) 3, 51, 4 mGy. Dose reduction achieved using automated exposure control Comparison: none Findings: Pulmonary arteries are well-opacified. No intraluminal filling defects or other findings to suggest acute pulmonary embolus are evident. The right and left pulmonary arteries are ectatic, each measuring approximately 26 mm in diameter. No evidence of isolated right ventricular dilatation is demonstrated. There is extensive vascular chronic disease of the thoracic aorta, but no evidence of aneurysm or dissection is demonstrated. Normal caliber and branching anatomy of the great neck vessels. The lungs demonstrates diffuse mosaic attenuation pattern bordering on generalized groundglass opacity. There are numerous small bullae. There is some interstitial septal thickening. Numerous nodular opacities, some irregular, are scattered throughout both lungs. No effusions. The heart is markedly enlarged. There is a pacemaker. There is a right jugular tunneled dialysis catheter. No pericardial effusion. No mediastinal or hilar mass or adenopathy. The thyroid is unremarkable. There is diffuse edema of the mediastinal fat. There is also diffuse edema of the subcutaneous fat. The included upper abdominal anatomy demonstrates marked irregularity of the left kidney. Multiple cysts are seen in the left renal upper pole. Impression: No evidence of acute pulmonary embolus or other acute thoracic vascular pathology. Marked cardiomegaly Diffuse pulmonary mosaic attenuation pattern and interstitial septal thickening, likely on the basis of pulmonary edema, given the cardiac enlargement Multiple scattered nodular appearing opacities throughout both lungs. Most likely localized foci of acute pulmonary edema. However, these could also represent foci of inflammation/infection, chronic postinflammatory changes. Any of these could also represent neoplastic deposits. Evidence of bullous COPD Evidence of anasarca. Pacemaker and tunneled dialysis catheter also noted. The CT scanner at [facility] is accredited by the [employer] and the scans are performed using protocols designed to limit radiation exposure to as low as reasonably achievable to attain images of sufficient resolution adequate for diagnostic evaluation.
--- NOTE | 2020-04-20 09:57 | NUR ---
NURSE NOTES: HD nurse David is aware about HD, She stated Oozy will do in the afternoon. will continue to monitor.
[2020-04-20] MEDS: Docusate 100mg cap ORAL SCH ×2 (10:17→18:38)
[2020-04-20] MEDS: Carvedilol 25mg Tab ORAL SCH ×2 (10:17→20:15)
[2020-04-20] MEDS: Heparin 5000 units/ml inj SUBQ SCH ×2 (10:20→20:27)
[2020-04-20] MEDS: Topiramate 25mg tab ORAL SCH ×2 (10:22→18:38)
[2020-04-20] MEDS ORDERED: Spironolactone 25mg tab ORAL SCH (10:30)
--- NOTE | 2020-04-20 10:51 | Consultation ---
Consult Note Consult Note DATE OF CONSULTATION: 04/20/2020 CONSULTING PHYSICIAN: Toni Peters MD. ATTENDING PHYSICIAN: Dr. Munroe REASON FOR CONSULTATION: Shortness of breath, hypoxia HISTORY OF PRESENT ILLNESS: This is a 74-year-old female with past medical history of hypertension, COPD, ESRD on dialysis, CHF, anemia, opiate abuse, bipolar disorder, anxiety, schizophrenia, and chronic pain syndrome, who was sent to ED from [facility] for shortness of breath. Patient was reported to be short of breath last night and EMS was called. Patient was reported to be hypoxic on arrival and was placed on supplemental oxygen. Since then, patient was placed on BiPAP. She had elevated troponin, lactate, digoxin, and potassium. Potassium was 6.7 with peaked T waves. The initial blood gas revealed respiratory acidosis. CT angio of the chest with contrast revealed no evidence of acute pulmonary embolus or other acute thoracic vascular pathology. CT of head was negative for acute intracranial bleed or mass-effect. Patient is unable to provide any history as she is confused. PAST MEDICAL HISTORY: As above MEDICATIONS: Pacemaker ALLERGIES: Morphine, penicillin, sulfa FAMILY HISTORY: Noncontributory PERSONAL/SOCIAL HISTORY: Resident of [facility], no known history of tobacco, alcohol or drugs REVIEW OF SYSTEMS: Unobtainable PHYSICAL EXAMINATION: VITAL SIGNS: Blood pressure 185/88, heart rate 87, respiratory rate 30, weight 59 kg, height 165 cm General: Patient is chronically ill-appearing, thin frail female, in moderate amount of respiratory distress, currently on BiPAP HEENT: Head exam reveals that the head is normocephalic, atraumatic without deformity or unusual swelling. CHEST AND LUNGS: Scattered rhonchi CARDIOVASCULAR: Reveals normal S1, S2 without murmurs, rubs, or clicks. ABDOMEN: Soft with no tenderness or organomegaly. RECTAL: Deferred. MUSCULOSKELETAL: There is no tenderness to palpation. Range of motion is normal. NEUROLOGICAL: confused LABORATORY DATA: Laboratory testing shows WBC 16.6, hemoglobin 9.2, hematocrit 29.3. Chemistries show potassium 6.7, BUN 89, creatinine 6, GFR 6.9, lactic acid 1.9, ferritin 1325, AST 141, alk phos 296, LDH 490, troponin 0.743, CRP >70, BNP >70881, lipase 45 Assessment/Plan 1. Hypoxemic respiratory distress -Continue BiPAP current setting; saturating at 93% -Recheck ABG in AM 2. COVID-19 PUI -COVID-19 swab sent -Check chest x-ray 3. Hypertension -On antihypertensives -Management per primary MD 4. ESRD -Patient received permacath for dialysis 5. Anemia, likely secondary to ESRD 6. Hyperkalemia - per primary MD 7. Elevated troponin 8. CHF -Elevated BNP -On diuretics 9. Elevated inflammatory markers -We will order venous duplex of legs -Order SCD if venous duplex negative - on heparin subcu The care for this patient was discussed with my supervising physician. Time spent for this case was approximately 31 minutes. Alhaji Mac Apr 20, 2020 10:51
--- NOTE | 2020-04-20 11:12 | NUR ---
RESPIRATORY NOTE: Changed BIPAP settings to 16/4 per MD order. Fio2 30%. PT tolerating well. Spo2 94% on current settings. Afsoon RN made aware. Will continue to closely monitor and follow plan of care.
--- NOTE | 2020-04-20 11:34 | NUR ---
NURSE NOTES: Received pt from ER at 0900, pt is awake and confused, Pt tries to get out of bed and take off bipap, pt has bipap 16/4 fio2 30%, Pt is on continues heart monitoring. pt has plan to HD today. pt has R chest perm cath and pt has intact iv access RAC 20G and L wrist 22G SL. Dr hugo ordered to change attending to Dr Epperson, noted and carried out. Dr Epperson notified about admission, V/S , lab results contain WBC 16.6 HB 9.2 PLT 133 K 6.9 CREA 6 TROPONIN 0.743, Digoxin 3.3, all orders noted and carried out. HD nurse David is aware about HD today and she stated Oozy will do in the afternoon. All needs attended, bed is locked and is in the lowest position, call light within easy reach. will continue to monitor.
--- NOTE | 2020-04-20 11:42 | Consultation ---
History of Present Illness General Date patient seen: Apr 20, 2020 Reason for Hospitalization: Dyspnea/Respdistress Present Illness HPI This is a 74-year-old female past medical history of hypertension, end-stage renal disease on dialysis, CHF, anemia, opiate abuse, bipolar disorder, anxiety, schizophrenia and chronic pain syndrome who is sent in from her extended care facility for shortness of breath. Per EMS patient was noted to be short of breath this evening and EMS was called. They state that her oxygen saturation was in the 80s when they arrived. Patient has been placed on supplemental oxygen and oxygen saturation is now in the mid 90s. Per EMS patient only received 40 minutes of her last dialysis. Patient is on Lasix. Unable to obtain further history at this time as patient is nonverbal. Patient is well- known to me from recent admission where she was identified to have abnormal abdominal pain. Since discharge states the pain has been gone and currently feels that she is hungry but afraid to eat at times because of abdominal discomfort. she is now on BIPAP saturating 95% Allergies: Coded Allergies: MORPHINE (Unverified Allergy, Unknown, 04/11/20) PENICILLINS (Unverified Allergy, Unknown, 04/11/20) SULFA (SULFONAMIDE ANTIBIOTICS) (Verified Allergy, Unknown, 02/24/20) COVID-19 Screening Contact w/high risk pt: No Recent Travel to affected area: No Experienced COVID-19 symptoms?: Yes Coronavirus symptoms experienc: Fever (T>100.4F or >38C), Shortness of Breath, Muscle or Body Aches Medication History Scheduled Ascorbic Acid* (Vitamin C*), 250 MG ORAL DAILY, (Reported) Aspirin* (Aspirin*), 81 MG ORAL DAILY, (Reported) Atorvastatin Calcium* (Lipitor*), 20 MG ORAL BEDTIME, (Reported) Benazepril Hcl* (Benazepril Hcl*), 20 MG ORAL EVERY 12 HOURS, (Reported) Carvedilol* (Carvedilol*), 25 MG ORAL EVERY 12 HOURS, (Reported) Cyanocobalamin (Vitamin B-12) (Vitamin B12), 1,000 MCG PO DAILY, (Reported) Digoxin* (Digoxin*), 0.25 MG ORAL every 48 hours, (Reported) Docusate Sodium* (Docusate Sodium*), 100 MG ORAL TWICE A DAY, (Reported) Ferrous Sulfate* (Ferrous Sulfate*), 325 MG ORAL DAILY, (Reported) Furosemide* (Lasix*), 40 MG ORAL DAILY, (Reported) Hydralazine Hcl* (Hydralazine Hcl*), 25 MG ORAL EVERY 12 HOURS, (Reported) Lorazepam* (Ativan*), 1 MG ORAL BID, (Reported) Polyethylene Glycol 3350* (Miralax*), 17 GM ORAL DAILY, (Reported) Quetiapine Fumarate* (Seroquel*), 25 MG ORAL MWF, (Reported) Spironolactone* (Aldactone*), 25 MG ORAL DAILY, (Reported) Topiramate* (Topamax*), 25 MG ORAL TWICE A DAY, (Reported) Vitamin B Cmplx/Vit C/Folic AC (Nephro-Leila Tablet), 1 TAB ORAL DAILY, (Reported) Scheduled PRN Albuterol Sulfate (Ventolin Hfa), 2 PUFFS INH EVERY 6 HOURS PRN for COPD, (Repor rey) Clonidine Hcl* (Catapres*), 0.1 MG ORAL EVERY 6 HOURS PRN for SBP>160, (Reported) Magnesium Hydroxide* (Milk Of Magnesia*), 30 ML ORAL DAILY PRN for Constipation, (Reported) Tramadol Hcl* (Ultram*), 50 MG ORAL Q6H PRN for For Pain, (Reported) Patient History History Provided By: Patient, Medical Record, PMD Healthcare decision maker Resuscitation status Advanced Directive on File Past Medical/Surgical History Past Medical/Surgical History: (1) UTI (urinary tract infection) (2) Head injury, acute (3) Cocaine abuse (4) Pain syndrome, chronic (5) Abdominal discomfort (6) Abnormal LFTs (7) Anxiety (8) Anemia (9) Encephalopathy acute (10) Elevated troponin I level (11) ESRF (end stage renal failure) (12) Anemia (13) Hypertension (14) Acute exacerbation of CHF (congestive heart failure) (15) Noncompliance (16) Toxic metabolic encephalopathy (17) Pneumonia due to COVID-19 virus (18) Hyperkalemia (19) CHF (congestive heart failure) (20) Encephalopathy (21) Hypoxia (22) End stage renal disease on dialysis (23) NSTEMI (non-ST elevated myocardial infarction) (24) Respiratory distress Review of Systems Review of Symptoms General ROS: no weight loss or fever Psychological ROS: no depression or mood changes, no memory loss Ophthalmic ROS: no visual changes or eye irritation ENT ROS: no nasal congestion, hearing loss, dizziness Allergy and Immunology ROS: no allergic symptoms or urticaria Hematological and Lymphatic ROS: no swollen glands, unusual bleeding or bruising Endocrine ROS: no polyuria, polydipsia, weight changes, temperature intolerance Respiratory ROS: no cough, shortness of breath, or wheezing Cardiovascular ROS: no chest pain or dyspnea on exertion Gastrointestinal ROS: denies abdominal pain, bright red blood in stool. Musculoskeletal ROS: no myalgias or arthralgias Neurological ROS: no TIA or stroke symptoms Dermatological ROS: no new or changing skin lesions, rashes or pruritis Physical Exam Physical Exam General appearance: alert, cooperative, no distress, appears stated age Head: Normocephalic, without obvious abnormality, atraumatic Eyes: conjunctivae/corneas clear. PERRL, EOM's intact. Fundi benign Throat: Lips, mucosa, and tongue normal. Teeth and gums normal Neck: supple, symmetrical, trachea midline, no adenopathy, thyroid: not enlarged, symmetric, no tenderness/mass/nodules, no carotid bruit and no JVD Lungs: dec to auscultation bilaterally Heart: regular rate and rhythm, S1, S2 normal, no murmur, click, rub or gallop Abdomen: soft, mild gen-tender. Bowel sounds normal. No masses, no organomegaly Extremities: extremities normal, atraumatic, no cyanosis or edema Pulses: 2+ and symmetric Skin: Skin color, texture, turgor normal. No rashes or lesions Neurologic: Grossly normal Last 24 Hour Vital Signs Date Time Temp Pulse Resp B/P (MAP) Pulse Ox O2 Delivery O2 Flow Rate FiO2 04/20/20 11:10 85 41 94 30 04/20/20 11:00 30 04/20/20 10:17 87 185/88 04/20/20 09:46 87 04/20/20 09:30 185/88 04/20/20 09:00 98.8 80 30 185/88 (120) 92 04/20/20 08:54 91 36 95 30 04/20/20 08:12 93 22 178/78 97 Bi-pap 04/20/20 06:48 99.5 88 27 166/88 100 Bi-pap 04/20/20 05:24 Bi-pap 40 04/20/20 05:05 79 36 100 40 04/20/20 04:16 99.5 87 29 162/70 (100) 96 Non-Rebreather 15.0 Intake and Output 04/19/20 04/20/20 19:00 07:00 Intake Total 0 ml Balance 0 ml Intake Oral 0 ml Laboratory Tests Test 04/20/20 04:24 04/20/20 05:00 04/20/20 06:12 Arterial Blood pH 7.257 (7.350-7.450) Arterial Blood Partial Pressure CO2 50.9 mmHg (35.0-45.0) H Arterial Blood Partial Pressure O2 334.0 mmHg (75.0-100.0) H Arterial Blood HCO3 22.2 mmol/L (22.0-26.0) Arterial Blood Oxygen Saturation 99.4 % (95-100) Arterial Blood Base Excess -4.9 (-2-2) L Venkata Test Positive White Blood Count 16.6 K/UL (4.8-10.8) H Red Blood Count 3.16 M/UL (4.20-5.40) L Hemoglobin 9.2 G/DL (12.0-16.0) L Hematocrit 29.3 % (37.0-47.0) L Mean Corpuscular Volume 93 FL (80-99) Mean Corpuscular Hemoglobin 29.0 PG (27.0-31.0) Mean Corpuscular Hemoglobin Concent 31.3 G/DL (32.0-36.0) L Red Cell Distribution Width 16.8 % (11.6-14.8) H Platelet Count 133 K/UL (150-450) L Mean Platelet Volume 8.4 FL (6.5-10.1) Neutrophils (%) (Auto) % (45.0-75.0) Lymphocytes (%) (Auto) % (20.0-45.0) Monocytes (%) (Auto) % (1.0-10.0) Eosinophils (%) (Auto) % (0.0-3.0) Basophils (%) (Auto) % (0.0-2.0) Prothrombin Time 16.2 SEC (9.30-11.50) H Prothromb Time International Ratio 1.5 (0.9-1.1) H Activated Partial Thromboplast Time 28 SEC (23-33) D-Dimer 19.86 mg/L FEU (0.00-0.49) H Sodium Level 139 MMOL/L (136-145) Potassium Level 6.7 MMOL/L (3.5-5.1) *H Chloride Level 98 MMOL/L (98-107) Carbon Dioxide Level 20 MMOL/L (21-32) L Anion Gap 19 mmol/L (5-15) H Blood Urea Nitrogen 89 mg/dL (7-18) H Creatinine 6.0 MG/DL (0.55-1.30) H Estimat Glomerular Filtration Rate 6.9 mL/min (>60) Glucose Level 77 MG/DL (74-106) Lactic Acid Level 4.10 mmol/L (0.4-2.0) H 1.90 mmol/L (0.66-2.22) Calcium Level 8.7 MG/DL (8.5-10.1) Magnesium Level 2.0 MG/DL (1.8-2.4) Ferritin 1325 NG/ML (8-388) H Total Bilirubin 1.3 MG/DL (0.2-1.0) H Direct Bilirubin 0.9 MG/DL (0.0-0.3) H Aspartate Amino Transf (AST/SGOT) 141 U/L (15-37) H Alanine Aminotransferase (ALT/SGPT) 67 U/L (12-78) Alkaline Phosphatase 296 U/L (46-116) H Lactate Dehydrogenase 490 U/L (81-234) H Total Creatine Kinase 104 U/L (26-308) Troponin I 0.743 ng/mL (0.000-0.056) C-Reactive Protein, Quantitative > 70.0 mg/dL (0.00-0.90) H Pro-B-Type Natriuretic Peptide > 88532 pg/mL (0-125) H Total Protein 7.8 G/DL (6.4-8.2) Albumin 2.8 G/DL (3.4-5.0) L Globulin 5.0 g/dL Albumin/Globulin Ratio 0.6 (1.0-2.7) L Lipase 45 U/L (73-393) L Digoxin Level 3.3 NG/ML (0.9-2.0) *H Height (Feet): 5 Height (Inches): 5.00 Weight (Pounds): 130 Medications Current Medications Medications (Trade) Dose Ordered Sig/Sugey Route PRN Reason Start Time Stop Time Status Last Admin Dose Admin Aspirin (ASA) 81 mg DAILY ORAL 04/20/20 09:30 06/04/20 09:29 04/20/20 10:16 Atorvastatin Calcium (Lipitor) 20 mg BEDTIME ORAL 04/20/20 21:00 07/19/20 20:59 Carvedilol (Coreg) 25 mg EVERY 12 HOURS ORAL 04/20/20 09:30 05/20/20 09:29 04/20/20 10:17 Clonidine HCl (Catapres Tab) 0.1 mg Q4H PRN ORAL prn sbp >160 04/20/20 09:30 07/19/20 09:29 Clonidine HCl (Catapres Tab) 0.1 mg Q6H PRN ORAL SBP>160 04/20/20 09:15 07/19/20 09:14 Docusate Sodium (Colace) 100 mg TWICE A DAY ORAL 04/20/20 09:30 05/20/20 09:29 04/20/20 10:17 Ferrous Sulfate (Feosol) 325 mg DAILY ORAL 04/20/20 09:30 07/19/20 09:29 04/20/20 10:17 Furosemide (Lasix) 40 mg DAILY IV 04/20/20 09:30 05/20/20 09:29 04/20/20 10:17 Heparin Sodium (Porcine) (Heparin 5000 units/ml) 5,000 units EVERY 12 HOURS SUBQ 04/20/20 10:00 06/04/20 09:59 04/20/20 10:20 Hydralazine HCl (Apresoline) 25 mg EVERY 12 HOURS ORAL 04/20/20 09:30 07/19/20 09:29 Iohexol (Omnipaque 350 100ml) 100 ml NOW PRN INJ Radiology Procedure 04/20/20 06:00 04/22/20 05:59 Nitroglycerin (Nitro-Bid) 1 inch TID@0600,1200,1800 TOPIC 04/20/20 12:00 05/20/20 11:59 Polyethylene Glycol (Miralax) 17 gm DAILY ORAL 04/20/20 09:30 05/20/20 09:29 04/20/20 10:16 Quetiapine Fumarate (SEROqueL) 25 mg TID PRN ORAL Agitation 04/20/20 09:30 06/04/20 09:29 04/20/20 10:17 Spironolactone (Aldactone) 25 mg DAILY ORAL 04/20/20 10:30 05/20/20 10:29 04/20/20 10:27 Topiramate (Topamax) 25 mg TWICE A DAY ORAL 04/20/20 09:30 05/20/20 09:29 04/20/20 10:22 Vitamin B Complex/ Vit C/Folic Acid (Nephrovite) 1 tab DAILY ORAL 04/20/20 09:30 05/20/20 09:29 04/20/20 10:17 Assessment/Plan Problem List: (1) Hyperkalemia ICD Codes: E87.5 - Hyperkalemia; Z99.2 - Dependence on renal dialysis SNOMED: 12489892 (2) CHF (congestive heart failure) ICD Codes: I50.9 - Heart failure, unspecified SNOMED: 23071084, 290648211 Qualifiers: Qualified Codes: I50.9 - Heart failure, unspecified (3) Encephalopathy ICD Codes: G93.40 - Encephalopathy, unspecified SNOMED: 40467188 (4) Hypoxia ICD Codes: R09.02 - Hypoxemia SNOMED: 569714054 (5) End stage renal disease on dialysis ICD Codes: N18.6 - End stage renal disease; Z99.2 - Dependence on renal dialysis SNOMED: 241496250 (6) NSTEMI (non-ST elevated myocardial infarction) ICD Codes: I21.4 - Non-ST elevation (NSTEMI) myocardial infarction; Z99.2 - Dependence on renal dialysis SNOMED: 07823921 (7) Cocaine abuse ICD Codes: F14.10 - Cocaine abuse, uncomplicated SNOMED: 27223321, 7069882 (8) Anemia ICD Codes: D64.9 - Anemia, unspecified SNOMED: 005148637, 2132075 (9) Anemia ICD Codes: D64.9 - Anemia, unspecified SNOMED: 483169673 (10) Anxiety ICD Codes: F41.9 - Anxiety disorder, unspecified SNOMED: 77625085 (11) Respiratory distress ICD Codes: R06.03 - Acute respiratory distress SNOMED: 340783483 (12) UTI (urinary tract infection) ICD Codes: N39.0 - Urinary tract infection, site not specified SNOMED: 97276345, 3150850 (13) Hypertension ICD Codes: I10 - Essential (primary) hypertension SNOMED: 57242558, 79446892991548 (14) Encephalopathy acute ICD Codes: G93.40 - Encephalopathy, unspecified SNOMED: 81086056, 535038533 (15) ESRF (end stage renal failure) ICD Codes: N18.6 - End stage renal disease SNOMED: 71442680, 8996552 (16) Abdominal discomfort Assessment & Plan: 74-year-old female multimedical committees on dialysis pres ented with shortness of breath now on BiPAP with significant abnormal labs elevated LFTs complaint abdominal discomfort. States it feels like generalized bloating. States is afraid to eat. No nausea vomiting. Labs noted electrolytes reviewed LFTs noted. Recent admission prior findings reviewed. Imaging noted. Given patient's BiPAP requirement hold on diet until safe. Abdominal examination is fairly benign though patient does have discomfort history of chronic pain. No acute abdominal finding identified. LFTs likely related from medications and low flow. Will monitor trend labs. Thank you will follow with recommendations Pulmonary arteries are well-opacified. No intraluminal filling defects or other findings to suggest acute pulmonary embolus are evident. The right and left pulmonary arteries are ectatic, each measuring approximately 26 mm in diameter. No evidence of isolated right ventricular dilatation is demonstrated. There is extensive vascular chronic disease of the thoracic aorta, but no evidence of aneurysm or dissection is demonstrated. Normal caliber and branching anatomy of the great neck vessels. The lungs demonstrates diffuse mosaic attenuation pattern bordering on generalized groundglass opacity. There are numerous small bullae. There is some interstitial septal thickening. Numerous nodular opacities, some irregular, are scattered throughout both lungs. No effusions. The heart is markedly enlarged. There is a pacemaker. There is a right jugular tunneled dialysis catheter. No pericardial effusion. No mediastinal or hilar mass or adenopathy. The thyroid is unremarkable. There is diffuse edema of the mediastinal fat. There is also diffuse edema of the subcutaneous fat. The included upper abdominal anatomy demonstrates marked irregularity of the left kidney. Multiple cysts are seen in the left renal upper pole. Impression: No evidence of acute pulmonary embolus or other acute thoracic vascular pathology. Marked cardiomegaly Diffuse pulmonary mosaic attenuation pattern and interstitial septal thickening, likely on the basis of pulmonary edema, given the cardiac enlargement Multiple scattered nodular appearing opacities throughout both lungs. Most likely localized foci of acute pulmonary edema. However, these could also represent fo ci of inflammation/infection, chronic postinflammatory changes. Any of these could also represent neoplastic deposits. Evidence of bullous COPD Evidence of anasarca. Pacemaker and tunneled dialysis catheter also noted. ICD Codes: R10.9 - Unspecified abdominal pain SNOMED: 66257352 (17) Acute exacerbation of CHF (congestive heart failure) ICD Codes: I50.9 - Heart failure, unspecified SNOMED: 569056545, 82187888099956 (18) Pain syndrome, chronic ICD Codes: G89.4 - Chronic pain syndrome SNOMED: 961621360, 96496172729379 (19) Abnormal LFTs ICD Codes: R94.5 - Abnormal results of liver function studies SNOMED: 811297605 (20) Noncompliance ICD Codes: Z91.19 - Patient's noncompliance with other medical treatment and regimen SNOMED: 7675310, 9925634 (21) Elevated troponin I level ICD Codes: R77.8 - Other specified abnormalities of plasma proteins SNOMED: 761688505, 9781963 (22) Head injury, acute ICD Codes: S09.90XA - Unspecified injury of head, initial encounter SNOMED: 57887569, 1662357 (23) Toxic metabolic encephalopathy ICD Codes: G92 - Toxic encephalopathy SNOMED: 819998297 (24) Pneumonia due to COVID-19 virus ICD Codes: U07.1 - COVID-19; J12.82 - Pneumonia due to coronavirus disease 2018 SNOMED: 121875703042058360 Blu Lema Apr 20, 2020 11:42
[2020-04-20] MEDS: Nitroglycerin 2% oint pkt TOPIC SCH ×2 (12:00→18:00)
--- NOTE | 2020-04-20 12:51 | NUR ---
CARDIOLOGY CONSULTANTS NOTE GABRIEL was requested by RN to locate family for this pt. This pt is from [facility]. Pt's last admissions at [facility] are 02/24/20-03/16/20 and 04/11/20-04/16/20. GABRIEL attempted to locate the family but was unsuccessful in February 2020. SW reviewed pt's medical records and there is no family contacted the hospital or locate any family information. SW also attempted to locate family via her previous addresses: [address] [place], [place] [address] and [address] [place] [address], [place] [address]. GABRIEL was unable to obtain any information from pt d/t her current mental status. This SW is unable to locate family. GABRIEL spoke w/ Detective Anguiano from [facility] adult missing person unit [phone] that pt is not reported as missing. Addendum: 04/20/20 at 1325 by NESHA RIOS GABRIEL attempted to call [facility] [phone] 2x to confirm emergency contact status. Calls were not answered and there is no voicemail option. Per chart review, [facility] did not have any emergency contact information.
--- NOTE | 2020-04-20 13:46 | NUR ---
NURSE NOTES: RN called GABRIEL Thomas to locate family to consent HD but they couldn't find family, RN called intermediate but nobody answer, Dr Epperson is aware and sated he will mention is his note that pt needs HD, Dr Munroe is aware and he stated pt needs urgent HD and he is on meeting now and he will mention in his note later, HD nurse David is aware. will continue to monitor.
--- NOTE | 2020-04-20 14:30 | General Progress Note ---
Subjective ROS Limited/Unobtainable: Yes Constitutional: Reports: no symptoms HEENT: Reports: no symptoms Cardiovascular: Reports: no symptoms Respiratory: Reports: shortness of breath Genitourinary: Reports: no symptoms Neurologic/Psychiatric: Reports: anxiety Endocrine: Reports: no symptoms Hematologic/Lymphatic: Reports: no symptoms Allergies: Coded Allergies: MORPHINE (Unverified Allergy, Unknown, 04/11/20) PENICILLINS (Unverified Allergy, Unknown, 04/11/20) SULFA (SULFONAMIDE ANTIBIOTICS) (Verified Allergy, Unknown, 02/24/20) All Systems: reviewed and negative except above Subjective confused and sob. on bipap. Objective Last 24 Hour Vital Signs Date Time Temp Pulse Resp B/P (MAP) Pulse Ox O2 Delivery O2 Flow Rate FiO2 04/20/20 14:13 80 158/74 (102) 94 04/20/20 14:07 40 04/20/20 14:06 93 40 04/20/20 12:34 82 04/20/20 12:00 98.9 87 31 182/74 (110) 91 04/20/20 11:10 85 41 94 30 04/20/20 11:00 30 04/20/20 10:17 87 185/88 04/20/20 09:46 87 04/20/20 09:30 185/88 04/20/20 09:00 98.8 80 30 185/88 (120) 92 04/20/20 08:54 91 36 95 30 04/20/20 08:12 93 22 178/78 97 Bi-pap 04/20/20 06:48 99.5 88 27 166/88 100 Bi-pap 04/20/20 05:24 Bi-pap 40 04/20/20 05:05 79 36 100 40 04/20/20 04:16 99.5 87 29 162/70 (100) 96 Non-Rebreather 15.0 Intake and Output 04/19/20 04/20/20 19:00 07:00 Intake Total 0 ml Balance 0 ml Intake Oral 0 ml Laboratory Tests 04/20/20 04:24: Arterial Blood pH 7.257L, Arterial Blood Partial Pressure CO2 50.9H, Arterial Blood Partial Pressure O2 334.0H, Arterial Blood HCO3 22.2, Arterial Blood Oxygen Saturation 99.4, Arterial Blood Base Excess -4.9L, Venkata Test Positive 04/20/20 05:00: White Blood Count 16.6H, Red Blood Count 3.16L, Hemoglobin 9.2L, Hematocrit 29.3L, Mean Corpuscular Volume 93, Mean Corpuscular Hemoglobin 29.0, Mean Corpuscular Hemoglobin Concent 31.3L, Red Cell Distribution Width 16.8H, Platelet Count 133L, Mean Platelet Volume 8.4, Neutrophils (%) (Auto) , Lymphocytes (%) (Auto) , Monocytes (%) (Auto) , Eosinophils (%) (Auto) , Basophils (%) (Auto) , Prothrombin Time 16.2H, Prothromb Time International Ratio 1.5H, Activated Partial Thromboplast Time 28, D-Dimer 19.86H, Sodium Level 139, Potassium Level 6.7*H, Chloride Level 98, Carbon Dioxide Level 20L, Anion Gap 19H, Blood Urea Nitrogen 89H, Creatinine 6.0H, Estimat Glomerular Filtration Rate 6.9, Glucose Level 77, Lactic Acid Level 4.10H, Calcium Level 8.7, Magnesium Level 2.0, Ferritin 1325H, Total Bilirubin 1.3H, Direct Bilirubin 0.9H , Aspartate Amino Transf (AST/SGOT) 141H, Alanine Aminotransferase (ALT/SGPT) 67, Alkaline Phosphatase 296H, Lactate Dehydrogenase 490H, Total Creatine Kinase 104, Troponin I 0.743H, C-Reactive Protein, Quantitative > 70.0H, Pro-B-Type Natriuretic Peptide > [id number], Total Protein 7.8, Albumin 2.8L, Globulin 5.0, Albumin/Globulin Ratio 0.6L, Lipase 45L, Digoxin Level 3.3*H 04/20/20 06:12: Lactic Acid Level 1.90 Height (Feet): 5 Height (Inches): 5.00 Weight (Pounds): 130 General Appearance: severe distress Assessment/Plan Status: not improved Assessment/Plan: pt needs emergent life saving HD. too confused to consent. no family available. recommend to proceed with emergent HD for severe fluid overload and hyperkalemia Laurent Epperson MD Apr 20, 2020 14:30
--- NOTE | 2020-04-20 14:59 | Diagnostic Imaging Report ---
Indication: Shortness of breath Technique: One view of the chest Comparison: 04/11/2020 Findings: Allowing for technical differences, probably unchanged generalized mild interstitial prominence. No focal consolidation. The heart remains enlarged. Left chest pacemaker, right jugular tunneled dialysis catheter are again demonstrated. Impression: Mild interstitial prominence, unchanged from 04/11/2020, possibly representing mild interstitial congestion. Cardiomegaly
--- NOTE | 2020-04-20 15:39 | Diagnostic Imaging Report ---
Indication: Abnormal liver function tests, abdominal pain Technique: Victor-scale and duplex images of the upper abdomen were obtained Comparison: 02/26/2020 Findings: Unremarkable inferior vena cava Gallbladder demonstrates sludge, no stones. Gallbladder wall is thickened and there is some pericholecystic edema. Gallbladder wall thickness is 5 mm. Sonographic Lewis's sign is negative. Common bile duct is normal in caliber, measurement not documented. No intrahepatic biliary ductal dilatation. Liver demonstrates normal echogenicity, no focal abnormality. Portal vein and hepatic veins are patent. Pancreas is unremarkable. Spleen is unremarkable. Left kidney could not be visualized as patient was unable to cooperate optimally. Right kidney measures 8.4 cm length.. There is no hydronephrosis. It demonstrates increased echogenicity and one or more small cysts . Non-aneurysmal abdominal aorta . Impression: Thickened gallbladder wall with pericholecystic edema, but no gallstones. Possibility of acalculous acute cholecystitis should be considered; consider hepatobiliary nuclear scan if there is high clinical suspicion. Negative for dilated bile ducts Nonvisualized left kidney. Echogenic right kidney with cysts, indicating medical renal disease
--- NOTE | 2020-04-20 16:09 | Diagnostic Imaging Report ---
Indication: Reason For Exam: DVT Technique: Grayscale and duplex images of the bilateral lower extremity veins Comparison: 9 Findings: Bilaterally, grayscale and duplex images demonstrate no evidence of intraluminal thrombus. Normal phasic Doppler waveforms, demonstrating normal augmentation response and no evidence of valvular insufficiency. Greater saphenous vein(s) and tibial veins are patent. Normal compressibility. In the left posterior calf, adjacent to the posterior tibial vein, there is a 1 cm diameter hypoechoic structure. This is avascular Impression: Negative for evidence of lower extremity deep venous thrombosis bilaterally Avascular 1 cm diameter hypoechoic structure adjacent to the posterior tibial vein, may represent a small hematoma
--- NOTE | 2020-04-20 16:15 | Cardiology Report ---
APPROVED REPORT EKG Measurement Heart [id number] <Conclusion> Normal sinus rhythm Left bundle branch block Abnormal ECG
--- NOTE | 2020-04-20 16:44 | NUR ---
NURSE NOTES: HD started by RN David, V/S BP 134/60 hr 80 spo2 96%, BESSY Mac visited pt and is aware about FIO2 50%. Will continue to close monitoring.
--- NOTE | 2020-04-20 19:15 | NUR ---
NURSE NOTES: Received report from MARY Jaimes. Pt seen lying in bed in semi- zendejas's position. pt is oriented to pain, restless. Pt has BIPAP 16/4, Fio2- 50%- o2 sat- 95%. Pt is NPO except meds. Pt is oliguric, no grey attached to pt. On going dialysis ,RN on bedside. BP is WNL. Potassium is 6.7- Dr. Munroe aware. No IVF at this time per Dr. Epperson, pt BNP >35,000. platelet 133 MD aware. No pain noted. Pt on restraints for safety, pt behavior getting up in bed at times. No any skin issues noted. With palpable pulses noted. Bed in lowest position, call light within reach. Continue to plan of care.
--- NOTE | 2020-04-20 19:30 | NUR ---
NURSE NOTES: HD finished now with 1.5 lit out put, pt is stable, BP 111/5O HR 75 SPO2 94%.
--- NOTE | 2020-04-20 19:41 | NUR ---
NURSE NOTES: Assessed pt, pt unable to swallow. Refer to Dr. Epperson, no answer yet for possible NGT and swallow eval .
--- NOTE | 2020-04-20 19:54 | NUR ---
NURSE HAND-OFF REPORT: Important Events on Shift:HD done with 1.5lit out put. Patient Status: Diet: Pending Orders: Pending Results/Labs: Pending MD notification: Latest Vital Signs: Temperature 98.7 , Pulse 79 , B/P 108 /52 , Respiratory Rate 32 , O2 SAT 94 , Bi-pap, O2 Flow Rate 15.0 . Vital Sign Comment: EKG Rhythm: SR 1ST DEGREE BBB Rhythm change?: N MD Notified?: - MD Response: Latest Mcconnell Fall Score: 60 Fall Risk: High Risk Safety Measures: Call light Within Reach, Bed Alarm Zone 1, Side Rails Side Rails x3, Bed position Low and Locked. Fall Precautions: Yellow Socks Yellow Gown Door Sign Patient Fall Education Report given to . Pt is sleeping and stable, no stress noted. endorsed plan of care.
--- NOTE | 2020-04-20 20:49 | NUR ---
NURSE NOTES: Received report from Lab, for blood culture gram positive cocci, Dr. Montejo made aware,left message no response yet.
[2020-04-20] MEDS ORDERED: Atorvastatin 20mg tab ORAL SCH (21:00)
--- NOTE | 2020-04-20 21:00 | NUR ---
NURSE NOTES: Noted pt o2 sat- 98%, pt still tachypneic and lethargic. D/c restraints. Still awaiting for Dr. Montejo for NGT insertion and response for gram positive culture.
--- NOTE | 2020-04-20 22:01 | NUR ---
CODE BLUE: See Code sheet which remains on paper.
--- NOTE | 2020-04-20 22:01 | NUR ---
NURSE NOTES: Went to check the patient, saw the monitor pt on VFIB. Immediately went to the room and check the pt together with other RN. Saw the pt, no pulse, no bp 99/63. o2 sat- 73%. Pt not responsive, lethargic on baseline. Code blue activated, charge Grisel doshi. Activated code blue. Started immediately the compression and code team arrived simultaneously. See Code chart paper for meds given.
--- NOTE | 2020-04-20 22:09 | NUR ---
NURSE NOTES: Dr. Amador [facility] arrived and intubated the patient. After series of compression and meds. Still no pulse and asystole. and pronounce by DR Miriam Edwards at 22:15.
--- NOTE | 2020-04-20 22:16 | NUR ---
NURSE NOTES: Called Dr. Epperson/ Dr. Montejo to informed pt at 22:15.. Awaiting for response, LVM. No family in the facesheet. auto specialty services manager in the case, to locate family.
--- NOTE | 2020-04-20 22:39 | NUR ---
NURSE NOTES: Called [facility]. Not fitable for donation. Referal no. [id number], spoke to
--- NOTE | 2020-04-20 23:00 | NUR ---
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 Post mortem care done.
--- NOTE | 2020-04-21 00:10 | NUR ---
NURSE NOTES: Called [facility]([phone]) where pt previously resided but unable to leave message. Dr Robert and Dr. Munroe aware of pt's passing.
--- NOTE | 2020-04-21 02:10 | Emergency Room Report ---
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: No Patient History Now: No Nursing Documentation-PMH Past Medical History: No History, Except For Hx Cardiac Problems: Yes - afib, pacemaker Hx Hypertension: Yes Hx Pacemaker: Yes - L chest Hx COPD: Yes Hx Cancer: No Hx Gastrointestinal Problems: Yes - chronic viral hepatitis B Hx Dialysis: Yes Hx Neurological Problems: No Hx Dementia: Yes Physical Exam Vital Signs Date Time Temp Pulse Resp B/P (MAP) Pulse Ox O2 Delivery O2 Flow Rate FiO2 04/20/20 04:16 99.5 87 29 162/70 (100) 96 Non-Rebreather 15.0 04/20/20 05:05 40 Procedures CPR/Code Blue CPR/Code Blue Narrative I was called to evaluate the patient after cardiac arrest. Prior history of coronavirus infection. Patient had been noted to have asystole. Patient was apneic and undergoing CPR on my arrival. Patient was given medications as per code sheet. There is no return of spontaneous circulation despite medications. Resuscitative efforts were terminated at 1015. Family to be notified by staff. Medical Decision Making Diagnostic Impression: Primary Impression: Respiratory distress Additional Impressions: CHF (congestive heart failure) Qualified Codes: I50.9 - Heart failure, unspecified Encephalopathy Hypoxia End stage renal disease on dialysis NSTEMI (non-ST elevated myocardial infarction) Hyperkalemia Last Vital Signs Date Time Temp Pulse Resp B/P (MAP) Pulse Ox O2 Delivery O2 Flow Rate FiO2 04/20/20 20:15 68 106/73 04/20/20 20:00 Bi-pap 04/20/20 20:00 98.7 24 92 04/20/20 19:15 50 04/20/20 16:00 15.0 Disposition: Condition: Referrals: Ace Munroe M.D. (PCP) Roman Chaudhry MD Apr 21, 2020 02:10
[2020-04-21] MEDS ORDERED: Dyna-Hex 2% Top Sol 2oz TOPIC SCH (20:00)
--- NOTE | 2020-04-22 15:29 | Discharge Summary ---
Discharge Summary Discharge Summary _ Date of admission: 04/20/2020 Date of expiration: 04/20/2020 History of Present Illness and Brief Hospital Course Ms. Wright was a 74-year-old female with past medical history of hypertension, ESRD on dialysis, CHF, anemia, opiate abuse, bipolar disorder, anxiety, schizophrenia, and chronic pain syndrome who was sent to ED from SNF for shortness of breath. Patient was reported to be short of breath the night prior to presentation and EMS was called. Patient was hypoxic on arrival and was placed on supplemental oxygen. Patient was then placed on BiPAP. She had elevated troponin, lactate, digoxin, and potassium. Potassium was 6.7 with peaked T waves. The initial blood gas revealed respiratory acidosis. CT angio of the chest with contrast revealed no evidence of acute pulmonary embolus or other acute thoracic vascular pathology. CT of head was negative for acute intracranial bleed or mass-effect. Patient was admitted to the hospital for further management. Due to elevated BNP, she was started on diuretics. Given her history of ESRD, patient received permacath for dialysis. Due to concerns of current pandemic, COVID-19 swab was sent to rule out COVID-19. On 04/20/2020 at 2100, patient was found tachypneic and lethargic. Within 1 hour, patient was found in asystole with hypotension and hypoxia. CODE BLUE was activated and compression was immediately started. She was soon intubated given worsening hypoxemia. Unfortunately, ROSC was unable to be achieved despite multiple attempts of compressions. Patient was pronounced on 04/20/2020 at 22:15. Cause of : Cardiopulmonary arrest Consultants: Pulmonology Dr. Peters Surgery Dr. Lema Nephrology Dr. Munroe Final diagnoses Hyperkalemia Acute exacerbation of CHF Toxic metabolic encephalopathy Hypoxia ESRD Non-STEMI Cocaine abuse Anemia Anxiety Hypoxemic respiratory distress UTI Hypertension Chronic pain syndrome Abnormal LFTs Elevated troponin Gram-positive bacteremia Dementia I have been assigned to dictate discharge summary for this account. Alhaji Mac Apr 22, 2020 15:29
== END 2020-04-20 22:15 | disposition expired ==
LOC: EDBD 04:13 → EMR 04:22 → EDBEDREQ 04:28 → 2W 04:28 → EDBEDREQ 05:29 → 2W 06:42
PROC: 5A1D70Z Performance of Urinary Filtration, Intermittent, Less than 6 Hours Per Day (ICD-10-PCS; principal; 2020-04-20)
PROC: 0BH17EZ Insertion of Endotracheal Airway into Trachea, Via Natural or Artificial Opening (ICD-10-PCS; principal; 2020-04-20)
PROC: 5A09357 Assistance with Respiratory Ventilation, Less than 24 Consecutive Hours, Continuous Positive Airway Pressure (ICD-10-PCS; principal; 2020-04-20)
PROC: 5A12012 Performance of Cardiac Output, Single, Manual (ICD-10-PCS; principal; 2020-04-20)
DX: I13.2 Hypertensive heart and chronic kidney disease with heart failure and with stage 5 chronic kidney disease, or end stage renal disease (principal); I21.4 Non-ST elevation (NSTEMI) myocardial infarction; J96.91 Respiratory failure, unspecified with hypoxia; N18.6 End stage renal disease; E87.2 Acidosis; B18.1 Chronic viral hepatitis B without delta-agent; F03.91 Unspecified dementia, unspecified severity, with behavioral disturbance; E87.5 Hyperkalemia; Z95.0 Presence of cardiac pacemaker; Z88.6 Allergy status to analgesic agent; Z88.0 Allergy status to penicillin; Z88.2 Allergy status to sulfonamides; Z99.2 Dependence on renal dialysis; F31.9 Bipolar disorder, unspecified; E87.79 Other fluid overload; Z20.822 Contact with and (suspected) exposure to COVID-19; D63.1 Anemia in chronic kidney disease; F20.9 Schizophrenia, unspecified; I48.91 Unspecified atrial fibrillation; G89.4 Chronic pain syndrome
CPT/HCPCS: 36415; 70450; 71045; 71275; 76700; 80053; 80162; 82248; 82550; 82728; 82803; 83605; 83615; 83690; 83735; 83880; 84484; 85025; 85379; 85610; 85730; 86140; 87040; 92950; 93005; 93970; 94660; 96365; 96367; 96375; 99291; J2250